=== PATIENT | female | born 1990 | race Caucasian/White ===

== ENCOUNTER 2024-12-03 20:01 | Outpatient (REF) | payer OTHER, SELFPAY ==
[2024-12-08 14:11] LABS: Age Gdln ACOG Testing Note (.); HPV Aptima Negative (Negative); IGP, Aptima HPV, rfx 16/18,45 Note (.)
== END 2024-12-03 20:02 | disposition home or self-care (01) ==
LOC: LAB 20:01
PROVIDERS: PCP Family Medicine; Visit Provider Physician Assistant
DX: Z01.419 Encounter for gynecological examination (general) (routine) without abnormal findings (principal)
CPT/HCPCS: 87624; 88175

== ENCOUNTER 2025-09-07 15:56 | Outpatient (OUT) | payer OTHER, SELFPAY ==
--- NOTE | 2025-09-07 16:00 | MR_ITS ---
[address] [address] Patient Name: AMADO SALMON MRN: [id number] date: 1990 Sex: F Assigned Patient Location: MRI Current Patient Location: MRI Accession/Order Number: [id number] Exam Date: 09/07/2025 16:05 Report Date: 09/07/2025 21:53 At the request of: NON-STAFF PHYSICIAN Procedure: MR lumbar spine wo/w con MR lumbar spine wo/w con 09/07/2025 4:58 PM SIGNS AND SYMPTOMS: ^Chronic Bilateral low back pain with bilateral sciatica PROTOCOL: Multiplanar multisequence MR images of the lumbar spine with and without IV contrast CONTRAST: 15 mL of intravenous Dotarem COMPARISON: 07/16/2022. FINDINGS: The bones of the lumbar spine are in anatomic alignment. There is preservation of vertebral body heights. There is disc desiccation and mild disc height loss at L3-L4. There is a unilateral left-sided L3 pars defect with a defect in the right L3 pedicle. Bilateral L5 pars defects are redemonstrated. The marrow signal is within normal limits. The conus terminates at the inferior endplate of the L1 vertebral body level. No epidural or paraspinous fluid collection is appreciated. No abnormal postcontrast enhancement. At T12-L1: There is a normal disc, central canal, and neural foramen. At L1-L2: There is a normal disc, central canal, and neural foramen. At L2-L3: There is a normal disc, central canal, and neural foramen. At L3-L4: There is a broad-based disc bulge with facet hypertrophy. There is mild right neural foraminal narrowing with minimal spinal canal narrowing. At L4-L5: There is a normal disc, central canal, and neural foramen. At L5-S1: There is a normal disc, central canal, and neural foramen. MR/MR lumbar spine wo/w con IMPRESSION: There is a unilateral left-sided L3 pars defect with a defect in the right L3 pedicle. Bilateral L5 pars defects are redemonstrated. At L3-L4: There is a broad-based disc bulge with facet hypertrophy. There is mild right neural foraminal narrowing with minimal spinal canal narrowing. No abnormal postcontrast enhancement. Impression dictated by: Gavin Aggarwal M.D. 09/07/2025 9:53 PM Dictation Location: [place] [address] Electronically authenticated by: [id number] Y Date: 09/07/2025 21:53
--- OUTSIDE RECORDS SUMMARY | 2025-09-07 16:00 | XMS_ITS | CCD ---
Author Organization [facility] CliniSyal Care Team Providers Care Virginia Line Attendant Name Role Phone DR JANIYA RAYGOZA Primary Care Unavailable RAJENDRA, GARRET Admitting Unavailable RAJENDRA, GARRET Attending Unavailable RAJENDRA, GARRET Consulting Unavailable MARY, DIANA Consulting Unavailable KARASIK, DR TUBBS Attending Unavailable KARASIK, DR TUBBS Admitting Unavailable KARASIK, DR TUBBS Consulting Unavailable IDALMIS, DR WATKINS Primary Care Unavailable ZIEBER, DR AURA Schwartz Consulting Unavailable KARASIK, DR TUBBS Admitting Unavailable IDALMIS, DR WATKINS Primary Care Unavailable KARASIK, DR TUBBS Attending Unavailable KARASIK, DR TUBBS Consulting Unavailable IDALMIS, DR WATKINS Primary Care Unavailable LUCIA, JESSA Admitting Unavailable KONSTAN, DIANA Consulting Unavailable LUCIA, JESSA Attending Unavailable LUCIA, JESSA Consulting Unavailable IDALMIS, DR WATKINS Primary Care Unavailable LUCIA, JESSA Admitting Unavailable LUCIA, JESSA Attending Unavailable LUCIA, JESSA Consulting Unavailable PELIMAN Mcclelland Consulting Unavailable MARKER, DR SCHAEFFER Attending Unavailable GRECHNY, SHANI TAYLOR Consulting Unavailable MARKER, DR SCHAEFFER Admitting Unavailable IDALMIS, DR WATKINS Primary Care Unavailable MARKER, DR SCHAEFFER Consulting Unavailable SCHNEBLEFAROOQ Consulting Unavailable Unavailable Primary Care Provider Unavailabl e PROVIDER, UNKNOWN Attending Unavailable PROVIDER, UNKNOWN Admitting Unavailable Janiya Raygoza MD Primary Care Provider Janiya Raygoza Unavailable Unavailable Unavailable JANIYA RAYGOZA Primary Care Physician MD Janiya Raygoza Primary Care Provider [phone] MD Nhan Carter Admit Provider [phone] MD Nhan Carter Attending Provider Nhan Carter Attending Unavailabl Nhan Quesada Admitting Unavailabl e Idalmis Janiya Primary Care Unavailable Jing Troncoso Attending Unavailable Jing Troncoso Referring Unavailable Idalmis, Dr. Janiya Sue Primary Care Unavaila ble Karyna, Dr. Jing Ge Attending Unavailable Idalmis, Dr. Janiya Sue Primary Care Unavaila ble Ksenia, Dr. Smith Referring Unavailable Karyna, Dr. Jing Ge Attending Unavailable Idalmis, Dr. Janiya Sue Referring Unavaila ble Idalmis, Dr. Janiya Sue Primary Care Unavaila ble Karyna, Dr. Jing Ge Attending Unavailable Idalmis, Dr. Janiya Sue Primary Care Unavaila alec Raygoza MD, Janiya Sunday Primary Care Provider [phone] Bari Alicea Attending Unavailable DO Hernandez Acosta Attending Unavailable Bari Alicea Attending Unavailable Colby Sky Attending Unavailable Idalmis BISWAS, Janiya Sunday Primary Care Provider Idalmis BISWAS, Janiya Brand Unavailable Nallely Monahan Unavailable [phone] JANIYA RAYGOZA Referring Unavailable IDALMIS, JANIYA Brand Primary Care Unavailable IDALMIS, JANIYA Brand Primary Care Unavailable ESTEVANKIET Attending Unavailable IDALMIS, JANIYA Brand Primary Care Unavailable ESTEVAN VESELIN Attending Unavailable IDALMIS, JANIYA Brand Primary Care Unavailable ESTEVAN, VESELIN Attending Unavailable IDALMIS, JANIYA Brand Referring Unavailable IDALMIS, JANIYA Brand Primary Care Unavailable SARAH SCHULTZ Referring Unavailab le IDALMIS, JANIYA Brand Primary Care Unavailable IDALMIS, JANIYA Brand Primary Care Unavailable MARCUS ALVARADO Attending Unavailable Danilo Murcia LPN Unavailable Mamta [place] Unavailable Handy WESTBROOK, Jennifer Unavailable JANIYA RAYGOZA Attending Unavailable ANAYA MORTON Attending Unavailable SARAH SCHULTZ Attending Unavailab LAURYN Villatoro Attending Unavailable JANINA CUNNINGHAM Attending Unavailable Allergies Allergy Classification Reported Allergen(s) Allergy Type Date of Onset Reaction(s) Facility (1 source) Adhesive agent Drug allergy (disorder) [facility] Repository (20 sources) nickel; Translations: [nickel] Drug Allergy 8 [facility] (20 sources) atomoxetine Drug Allergy 7 Anxiety [facility] (20 sources) Wound Dressing Adhesive Drug Allergy 4 [facility] (20 sources) Penicillins Propensity to adverse reactions 4 [facility] (3 sources) Penicillins Propensity to adverse reactions to drug 4 [facility] (1 source) Penicillin; Translations: [PENICILLIN G] Drug Allergy 5 [facility] Three Repository Medications Current Medications Medication Drug Class(es) Dates Sig (Normalized) Sig (Original) amoxicillin 500 mg oral capsule (3 sources) Penicillin-class Antibacterial Start: 11-02-2024 End: 11-09-2024 take 1 capsule by mouth in the morning, then take 1 capsule by mouth in the evening, then take 1 capsule by mouth at bedtime amoxicillin (Amoxil) 500 MG capsule Take 1 capsule by mouth in the morning and 1 capsule in the evening and 1 capsule before bedtime. 11/02/2024 11/07/2024 Discontinued (Ineffective) benzonatate 100 mg oral capsule (2 sources) Non-narcotic Antitussive Start: 11-07-2024 End: 11-14-2024 take 1 capsule by mouth three times daily as needed for cough benzonatate (Tessalon Perles) 100 MG capsule Indications: Bronchitis Take 1 capsule (100 mg) by mouth 3 (three) times a day as needed for cough for up to 7 days Do not crush or chew. 20 capsule 11/07/2024 11/14/2024 Active cephalexin 500 mg oral capsule (2 sources) Cephalosporin Antibacterial Start: 03-10-2024 End: 03-20-2024 take 1 capsule by mouth four times daily cephalexin 500 mg Cap 500 mg = 1 cap(s), Oral, QID, X 10 day(s), # 40 cap(s), Refills(s) 0, Pharmacy: [id number], 162, cm, 03/10/24 13:35:00 EDT, Height/Length Dosing, 70.4, kg, 03/10/24 13:35:00 EDT, Weight Dosing Start Date: 03/10/24 Stop Date: 03/20/24 Status: Ordered Start: 11-05-2023 End: 11-12-2023 take 1 capsule by mouth every twelve hours Keflex 500 mg Cap 500 mg = 1 cap(s), Oral, q12hr, X 7 day(s), # 14 cap(s), Refills(s) 0 Start Date: 11/05/23 Stop Date: 11/12/23 Status: Ordered diclofenac sodium 0.03 mg/mg topical gel (7 sources) Nonsteroidal Anti-inflammatory Drug Start: 10-24-2023 Diclofenac Sodium 3 % GEL Apply 2-4 ribbon of gel to ankle foot as needed for pain, 3-4x/day Pharmacist: may substitute as needed for insurance purposes 100 g 10/24/2023 Active doxycycline monohydrate 100 mg oral capsule (4 sources) Tetracycline-class Drug Start: 04-13-2025 take 1 capsule by mouth twice daily doxycycline monohydrate (MONODOX) 100 MG capsule Take 1 capsule by mouth 2 times daily 14 capsule 04/13/2025 Active Start: 12-29-2022 End: 01-08-2023 take 1 capsule by mouth twice daily doxycycline hyclate (VIBRAMYCIN) 100 MG capsule Take 1 capsule by mouth 2 times daily for 10 days 20 capsule 0 12/29/2022 01/08/2023 Active escitalopram 5 mg oral tablet (1 source) Serotonin Reuptake Inhibitor Start: 01-10-2023 take 5 mg by mouth once daily Escitalopram Oxalate Active 5 MG PO Daily January 10, 2023 12:00am ibuprofen 600 mg oral tablet (7 sources) Nonsteroidal Anti-inflammatory Drug Start: 10-24-2023 take 1 tablet by mouth every six hours as needed for pain ibuprofen (IBU) 600 MG tablet Take 1 tablet by mouth every 6 hours as needed for Pain 30 tablet 10/24/2023 Active ipratropium bromide 0.2 mg/ml inhalation solution (2 sources) Anticholinergic Start: 12-29-2022 End: 08-11-2023 ipratropium (ATROVENT) 0.02 % nebulizer solution Take 2.5 mLs by nebulization 4 times daily as needed for Wheezing 75 mL 0 12/29/2022 08/11/2023 Discontinued (LIST CLEANUP) OLANZapine 5 mg oral tablet (1 source) Atypical Antipsychotic Start: 01-10-2023 take 5 mg by mouth once daily in the evening Olanzapine Active 5 MG PO Every evening January 10, 2023 12:00am omeprazole 20 mg delayed release oral capsule (4 sources) Proton Pump Inhibitor Start: 11-05-2023 take 1 capsule by mouth once daily omeprazole 20 mg Cap-DR 20 mg = 1 cap(s), Oral, Daily, # 30 cap(s), Refills(s) 0 Start Date: 11/05/23 Status: Ordered predniSONE 20 mg oral tablet (16 sources) Start: 08-20-2025 End: 08-30-2025 take 1 tablet by mouth in the morning predniSONE (Deltasone) 20 MG tablet Indications: Chronic bilateral low back pain with bilateral sciatica Take 1 tablet (20 mg) by mouth in the morning and 1 tablet (20 mg) before bedtime. Do all this for 10 days. 20 tablet 08/20/2025 08/30/2025 Active Start: 04-13-2025 predniSONE (DE LTASONE) 20 MG tablet 2 tablets daily x 3 days then 1 tablet daily 10 tablet 04/13/2025 Active Start: 11-07-2024 End: 11-12-2024 take 1 tablet by mouth in the morning predniSONE (Deltasone) 10 MG tablet Indications: Bronchitis , Wheezing Take 1 tablet (10 mg) by mouth in the morning and 1 tablet (10 mg) before bedtime. Do all this for 5 days. 10 tablet 11/07/2024 11/12/2024 Active Start: 02-19-2024 End: 02-26-2024 take 1 tablet by mouth once daily predniSONE 50 mg Tab 50 mg = 1 tab(s), Oral, Daily, X 7 day(s), # 7 tab(s), Refills(s) 0 Start Date: 02/19/24 Stop Date: 02/26/24 Status: Ordered Start: 12-29-2022 End: 01-03-2023 take 1 tablet by mouth twice daily predniSONE (DELTASONE) 10 MG tablet Take 1 tablet by mouth 2 times daily for 5 days 10 tablet 0 12/29/2022 01/03/2023 Active End: 05-14-2025 take 1 tablet by mouth once daily predniSONE (Deltasone) 10 MG tablet Take 10 mg by mouth Daily 05/14/2025 Discontinued propranolol hydrochloride 20 mg oral tablet (7 sources) beta-Adrenergic Sean Start: 05-14-2025 End: 11-10-2025 take 1 tablet by mouth in the morning propranolol (Inderal) 20 MG tablet Indications: Palpitations Take 1 tablet (20 mg) by mouth in the morning and 1 tablet (20 mg) before bedtime. 60 tablet 5 05/14/2025 11/10/2025 Active traZODone hydrochloride 50 mg oral tablet (1 source) Serotonin Reuptake Inhibitor Start: 01-10-2023 take 50 mg by mouth once daily at bedtime Trazodone Active 50 MG PO Daily at bedtime January 10, 2023 12:00am valACYclovir 1000 mg oral tablet (3 sources) Herpesvirus Nucleoside Analog DNA Polymerase Inhibitor, Herpes Simplex Virus Nucleoside Analog DNA Polymerase Inhibitor, Herpes Zoster Virus Nucleoside Analog DNA Polymerase Inhibitor Start: 11-23-2024 End: 12-03-2024 take 1 tablet by mouth in the morning valACYclovir (Valtrex) 1 g tablet Indications: Herpes Take 1 tablet (1,000 mg) by mouth in the morning and 1 tablet (1,000 mg) before bedtime. Do all this for 10 days. 20 tablet 11/23/2024 12/03/2024 Active Completed/Discontinued Medications Medication Drug Class(es) Dates Sig (Normalized) Sig (Original) albuterol 0.83 mg/ml inhalation solution (20 sources) beta2-Adrenergic Agonist Start: 11-07-2024 End: 11-07-2025 albuterol (2.5 MG/3ML) 0.083% nebulizer solution Indications: Bronchitis , Wheezing Take 3 mL (2.5 mg) by nebulization every 6 (six) hours if needed for wheezing 75 mL 11 11/07/2024 08/20/2025 Discontinued Start: 01-07-2024 End: 08-20-2025 take 2 puff(s) by inhalation every four hours for wheezing albuterol HFA (ProAir HFA) 90 mcg/act inhaler Indications: Mild persistent asthma without complication (HCC) Inhale 2 puffs every 4 (four) hours if needed for wheezing 18 g 11 01/07/2024 08/20/2025 Discontinued Start: 08-11-2023 take 2 puff(s) by in halation four times daily as needed for wheezing albuterol sulfate HFA (VENTOLIN HFA) 108 (90 Base) MCG/ACT inhaler Inhale 2 puffs into the lungs 4 times daily as needed for Wheezing 18 g 08/11/2023 Active Start: 08-11-2023 albuterol (PRO VENTIL) (2.5 MG/3ML) 0.083% nebulizer solution 2.5 mg Start: 08-17-2020 End: 01-08-2023 Albuterol Sulfate Discontinu ed 2 INH INHALATION Q6H August 16, 2020 11:00pm January 08, 2023 8:48am End: 12-29-2022 albuterol sulfate HFA (PROVENTIL;VENTOLIN;PROAIR) 108 (90 Base) MCG/ACT inhaler Inhale 2 puffs into the lungs as needed. 0 12/29/2022 Discontinued (LIST CLEANUP) albuterol 0.833 mg/ml / ipratropium bromide 0.167 mg/ml inhalation solution (2 sources) Anticholinergic, beta2-Adrenergic Agonist Start: 08-11-2023 End: 08-11-2023 ipratropium 0.5 mg-albuterol 2.5 mg (DUONEB) nebulizer solution 1 Dose Start: 12-29-2022 End: 12-29-2022 ipratropium-albuterol (DUONE B) nebulizer solution 1 ampule amLODIPine 5 mg oral tablet (1 source) Dihydropyridine Calcium Channel Sean Start: 12-11-2021 End: 01-08-2023 Amlodipine Discontinued MG TABLET December 11, 2021 12:00am January 08, 2023 4:05am amylase [id number] unt / lipase [id number] unt / protease [id number] unt delayed release oral capsule (6 sources) Start: 01-03-2023 take 1 capsule by mouth three times daily Creon [id number] UNIT Oral Capsule Delayed Release Particles TAKE 1 CAPSULE 3 times daily Quantity: 48 Refills: 0 Ordered: 03-Jan-2023 Jing Troncoso DO Start : 03-Jan-2023 Active azithromycin 250 mg oral tablet (15 sources) Macrolide Antimicrobial Start: 11-07-2024 End: 05-14-2025 azithromycin (Zithromax) 250 MG tablet Indications: Bronchitis , Wheezing Take 2 tablets (500mg) by mouth on day 1, then take 1 tablet (250mg) by mouth on days 2-5 6 tablet 11/07/2024 05/14/2025 Discontinued cholestyramine resin 4000 mg powder for oral suspension (1 source) Bile Acid Sequestrant Start: 07-15-2023 Cholestyramine 4 GM Oral Packet MIX THE CONTENTS OF 1 POWDER PACKET WITH 2-6 OZ OF NONCARBONATED BEVERAGE AND SWALLOW TWICE DAILY. Quantity: 60 Refills: 5 Ordered: 15-Jul-2023 Jing Troncoso DO Start : 15-Jul-2023 Active diazePAM 10 mg oral tablet (1 source) Benzodiazepine End: 12-29-2022 take 1 tablet by mouth three times daily diazePAM (VALIUM) 10 MG tablet Take 10 mg by mouth 3 times daily. 0 12/29/2022 Discontinued (LIST CLEANUP) dicyclomine hydrochloride 20 mg oral tablet (1 source) Anticholinergic Start: 07-15-2023 take 1 tablet by mouth every six hours as needed Dicyclomine HCl - 20 MG Oral Tablet TAKE 1 TABLET BY MOUTH EVERY 6 HOURS NEEDED Quantity: 40 Refills: 2 Ordered: 15-Jul-2023 Jing Troncoso DO Start : 15-Jul-2023 Active homatropine methylbromide 0.3 mg/ml / HYDROcodone bitartrate 1 mg/ml oral solution (16 sources) Opioid Agonist, Cholinergic Muscarinic Agonist Start: 11-02-2024 End: 05-14-2025 Hydromet 5-1.5 MG/5ML solution 11/02/2024 05/14/2025 Discontinued Start: 11-02-2024 End: 11-05-2024 HYDROcodone homatropine (HYC ODAN) 5-1.5 MG/5ML solution Indications: Right flank pain , Acute bronchitis, unspecified organism Take 5 mLs by mouth 3 times daily as needed (For cough) for up to 3 days. Max Daily Amount: 15 mLs 45 mL 11/02/2024 11/05/2024 Active iopamidol (ISOVUE-370) 76 % injection 75 mL (1 source) Start: 08-07-2024 End: 08-07-2024 take 1 dose intravenously once 75 mL, IntraVENous, IMG ONCE PRN, 1 dose, Starting on Sat08/07/24 at 1059, Until Sat08/07/24 at 1138, Other methylPREDNISolone 125 mg injection (1 source) Corticosteroid Start: 12-29-2022 End: 12-29-2022 methylPREDNISolone sodium (SOLU-MEDROL) injection 125 mg naproxen 375 mg oral tablet (3 sources) Nonsteroidal Anti-inflammatory Drug Start: 11-02-2024 End: 04-13-2025 take 1 tablet by mouth twice daily at mealtime naproxen (NAPROSYN) 375 MG tablet Take 1 tablet by mouth 2 times daily (with meals) 14 tablet 11/02/2024 04/13/2025 Discontinued (LIST CLEANUP) phenazopyridine hydrochloride 200 mg oral tablet (4 sources) Start: 11-05-2023 take 1 tablet by mouth three times daily Pyridium 200 mg Tab 200 mg = 1 tab(s), Oral, TID, Take one tab by mouth three times a day for three days, # 9 tab(s), Refills(s) 0 Start Date: 11/05/23 Status: Ordered sulfamethoxazole 800 mg / trimethoprim 160 mg oral tablet (1 source) Dihydrofolate Reductase Inhibitor Antibacterial, Sulfonamide Antimicrobial Start: 12-11-2021 End: 01-08-2023 Sulfamethoxazole-Tri methoprim Discontinued TAB TABLET December 11, 2021 12:00am January 08, 2023 4:05am tretinoin 0.25 mg/ml topical cream (7 sources) Retinoid Start: 04-29-2024 End: 12-03-2024 tretinoin (Retin-A) 0.025 % cream Indications: Acne vulgaris Apply to face, once daily at evening/night time, 30 day supply 45 g 11 04/29/2024 12/03/2024 Discontinued Problems Active Problems Problem Classification Problem Date Documented Da te Episodic/Chronic Abdominal pain (15 sources) Right lower quadrant pain; Translations: [Unspecified abdominal pain] Onset: 1 Episodic Alcohol-related disorders (13 sources) Alcohol dependence; Translations: [Alcohol dependence, uncomplicated] Onset: 5 12-11-2021 Chronic Alcohol-related disorders (2 sources) Alcohol intoxication; Translations: [Alcohol use, unspecified with intoxication, unspecified] Onset: 4 12-11-2021 Episodic Anxiety disorders (20 sources) Panic attack; Translations: [Panic disorder [episodic paroxysmal anxiety]] Onset: 2 08-25-2012 Chronic Asthma (20 sources) Unspecified asthma, uncomplicated; Translations: [Exacerbation of moderate persistent asthma] Onset: 2 Chronic Biliary tract disease (1 source) Spasm of sphincter of Oddi; 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 Cardiac dysrhythmias (12 sources) Supraventricular tachycardia; Translations: [Supraventricular tachycardia] Onset: 5 04-15-2025 Chronic Cardiac dysrhythmias (9 sources) Palpitations; Translations: [Palpitations] Onset: 5 04-15-2025 Episodic Chronic obstructive pulmonary disease and bronchiectasis (13 sources) Acute exacerbation of chronic obstructive airways disease; Translations: [Chronic obstructive pulmonary disease with (acute) exacerbation] Onset: 5 04-15-2025 Chronic Chronic obstructive pulmonary disease and bronchiectasis (2 sources) Bronchitis; Translations: [Bronchitis, not specified as acute or chronic] 11-07-2024 Episodic Coagulation and hemorrhagic disorders (12 sources) Thrombocytopenic disorder; Translations: [Thrombocytopenia, unspecified] Onset: 6 04-15-2025 Chronic Diseases of white blood cells (20 sources) Leukocytosis; Translations: [Elevated white blood cell count, unspecified] Onset: 5 04-15-2025 Chronic Disorders of lipid metabolism (14 sources) Pure hypercholesterolemia, unspecified; Translations: [Dyslipidemia] Onset: 2 04-15-2025 Chronic E Codes: Fall (1 source) Fall (on) (from) unspecified stairs and steps, initial encounter; Translations: [FALL ON FROM UNS STAIRS STEPS INIT] Onset: 2 Episodic Genitourinary symptoms and ill-defined conditions (5 sources) Personal history of urinary (tract) infections; Translations: [Hematuria, unspecified] Onset: 1 Episodic Lymphadenitis (5 sources) Localized enlarged lymph nodes; Translations: [Generalized enlarged lymph nodes] Onset: 2 Episodic Menstrual disorders (20 sources) Amenorrhea; Translations: [Amenorrhea, unspecified] Onset: 5 04-15-2025 Chronic Miscellaneous mental health disorders (12 sources) Anorexia nervosa; Translations: [Anorexia nervosa, unspecified] Onset: 5 04-15-2025 Chronic Mood disorders (20 sources) Recurrent major depressive episodes, moderate ; Translations: [Major depressive disorder, recurrent, moderate] Onset: 8 01-08-2023 Chronic Nausea and vomiting (2 sources) Nausea with vomiting, unspecified; Translations: [Nausea and vomiting] Onset: 2 08-17-2020 Episodic Open wounds of extremities (1 source) Puncture wound of upper arm; Translations: [Puncture wound without foreign body of right upper arm, initial encounter] Onset: 4 Episodic Other acquired deformities (20 sources) Scoliosis of lumbar spine; Translations: [Scoliosis, unspecified] Onset: 2 08-25-2012 Chronic Other aftercare (1 source) Removal of sutures done; Translations: [Encounter for removal of sutures] 03-23-2024 Episodic Other circulatory disease (12 sources) Raynaud's disease; Translations: [Raynaud's syndrome without gangrene] Onset: 5 04-15-2025 Chronic Other gastrointestinal disorders (1 source) Non-infective diarrhea; Translations: [Other specified intestinal malabsorption] Chronic Other gastrointestinal disorders (12 sources) Irritable bowel syndrome; Translations: [Irritable bowel syndrome without diarrhea] Onset: 5 04-15-2025 Chronic Other gastrointestinal disorders (1 source) Diarrhea; Translations: [Diarrhea, unspecified] 08-17-2020 Episodic Other lower respiratory disease (2 sources) Wheezing; Translations: [Wheezing] 11-07-2024 Episodic Other nervous system disorders (12 sources) Chronic pain; Translations: [Other chronic pain] Onset: 5 04-15-2025 Chronic Other non-traumatic joint disorders (3 sources) Pain in left ankle and joints of left foot; Translations: [PAIN IN LEFT ANKLE] Onset: 2 Episodic Other nutritional; endocrine; and metabolic disorders (20 sources) Metabolic syndrome X; Translations: [Metabolic syndrome] Onset: 2 08-25-2012 Chronic Other nutritional; endocrine; and metabolic disorders (20 sources) Body mass index 30+ - obesity; Translations: [Obesity, unspecified] Onset: 2 11-07-2012 Chronic Other nutritional; endocrine; and metabolic disorders (12 sources) Hypomagnesemia; Translations: [Hypomagnesemia] Onset: 5 04-15-2025 Chronic Other nutritional; endocrine; and metabolic disorders (1 source) Weight loss; Translations: [Abnormal weight loss] 08-17-2020 Episodic Other screening for suspected conditions (not mental disorders or infectious disease) (1 source) Abnormal findings on diagnostic imaging of other specified body structures; Translations: [Abnormal findings on dx imaging of oth body structures] Onset: 3 Chronic Other upper respiratory infections (1 source) Viral upper respiratory tract infection; Translations: [Acute upper respiratory infection, unspecified] 08-11-2023 Episodic Pancreatic disorders (not diabetes) (20 sources) Chronic pancreatitis; Translations: [Chronic pancreatitis] Onset: 3 Chronic Poisoning by other medications and drugs (1 source) Poisoning by drug AND/OR medicinal substance; Translations: [Poisoning by unspecified drugs, medicaments and biological substances, accidental (unintentional), initial encounter] Onset: 3 Episodic Residual codes; unclassified (2 sources) Acquired absence of both cervix and uterus; Translations: [ACQUIRED ABSENCE BOTH CERVIX AND UTERUS] Onset: 2 Episodic Residual codes; unclassified (2 sources) Acquired absence of other specified parts of digestive tract; Translations: [ACQ ABSENCE OTH PART DIGESTV TRACT] Onset: 2 Episodic Residual codes; unclassified (1 source) Assessment examination refused; Translations: [Procedure and treatment not carried out because of patient's decision for unspecified reasons] 12-12-2021 Episodic Spondylosis; intervertebral disc disorders; other back problems (12 sources) Lumbosacral spondylosis without myelopathy; Translations: [Spondylosis without myelopathy or radiculopathy, lumbosacral region] Onset: 7 04-15-2025 Chronic Spondylosis; intervertebral disc disorders; other back problems (20 sources) Spasm of back muscles; Translations: [Muscle spasm of back] Onset: 7 04-15-2025 Episodic Sprains and strains (1 source) Sprain of unspecified ligament of left ankle, initial encounter; Translations: [SPRAIN UNS LIGAMENT LT ANKLE INIT] Onset: 2 Episodic Substance-related disorders (18 sources) Nicotine dependence, cigarettes, uncomplicated; Translations: [Cannabis abuse] Onset: 2 12-11-2021 Chronic Comment on above: Added secondary to d ocumentation in Social History. Suicide and intentional self-inflicted injury (1 source) Suicidal ideations; Translations: [Suicidal ideations] Onset: 3 Episodic Unclassified (1 source) Readiness finding; Translations: [Desire for detoxification] 12-11-2021 Urinary tract infections (2 sources) Urinary tract infection, site not specified; Translations: [Urinary tract infectious disease] Onset: 1 Episodic Viral infection (2 sources) COVID-19; Translations: [Disease caused by 2019-nCoV] Onset: 2 Past or Other Problems Problem Classification Problem Date Documented Da te Episodic/Chronic Acute bronchitis (4 sources) Acute bronchitis; Translations: [Acute bronchitis, unspecified] Onset: 11-02-2024 11-02-2024 Episodic Blindness and vision defects (12 sources) Bilateral myopia of eyes; Translations: [Myopia, bilateral] Onset: 04-15-2025 04-15-2025 Episodic Diabetes mellitus without complication (14 sources) Hyperglycemia; Translations: [Hyperglycemia, unspecified] Onset: 04-15-2025 04-15-2025 Episodic Fluid and electrolyte disorders (12 sources) Hypokalemia; Translations: [Hypokalemia] Onset: 06-17-2017 04-15-2025 Episodic Gastritis and duodenitis (13 sources) Gastritis; Translations: [Gastritis, unspecified, without bleeding] Onset: 11-05-2023 Episodic Gastrointestinal hemorrhage (20 sources) Rectal hemorrhage; Translations: [Hemorrhage of anus and rectum] Onset: 07-11-2016 07-11-2016 Episodic Other acquired deformities (12 sources) Acquired spondylolisthesis; Translations: [Spondylolisthesis, site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 10*6/uL 4.00 - 5.20 m/uL [facility] Segmented neutrophils/100 WBC (Bld) 7.98 % High [facility] WBC other (Bld) [#/Vol] 11.[address] [facility] CBC with Diffon 11-02-2024 Abs. Basophil 0.02 k/uL Normal 0.00-0.20 [facility] Comment on above: Performed By: #### T ROYER SALINAS, CP, CDP #### [facility] [address] [place] [address] Youth Probation Officer: Sebastian Reyes MD Abs.Imm.Granulocyte 0.01 k/uL Normal 0.00-0.30 [facility] Comment on above: Performed By: #### T BRAD, LIP, CP, CDP #### [facility] [address] [place] [address] Youth Probation Officer: Sebastian Reyes MD Abs.Neutrophil (Seg) 7.98 k/uL High 2.5-7.0 [facility] Comment on above: Performed By: #### T BRAD, LIP, CP, CDP #### [facility] [address] [place] [address] Youth Probation Officer: Sebastian Reyes MD Basophils/100 WBC (Bld) 0 % Normal 0-2 [facility] Comment on above: Performed By: #### T BRAD, LIP, CP, CDP #### [facility] [address] [place] [address] Youth Probation Officer: Sebastian Reyes MD Eosinophils (Bld) [#/Vol] 0.08 10*3/uL Normal 0.00-0.40 [facility] Comment on above: Performed By: #### T BRAD, LIP, CP, CDP #### [facility] [address] [place] [address] Youth Probation Officer: Sebastian Reyes MD Eosinophils/100 WBC (Bld) 1 % Normal 0-5 [facility] Comment on above: Performed By: #### T BRAD, LIP, CP, CDP #### [facility] [address] [place] [address] Youth Probation Officer: Sebastian Reyes MD Erythrocyte distribution width (RBC) [Ratio] 12.2 % Normal 12.1-15.2 [facility] Comment on above: Performed By: #### T BRAD, LIP, CP, CDP #### [facility] [address] [place] [address] Youth Probation Officer: Sebastian Reyes MD Hematocrit (Bld) [Volume fraction] 41.7 % Normal 36.0-46.0 [facility] Comment on above: Performed By: #### T ROYER SALINAS, CP, CDP #### [facility] [address] [place] [id number] Youth Probation Officer: Sebastian Reyes MD Hemoglobin (Bld) [Mass/Vol] 14.7 g/dL Normal 12.0-16.0 [facility] Comment on above: Performed By: #### T BRAD, LIP, CP, CDP #### [facility] [address] [place] [address] Youth Probation Officer: Sebastian Reyes MD Immature granulocytes/100 WBC (Bld) 0 % Normal 0-5 [facility] Comment on above: Performed By: #### T ROYER SALINAS, CP, CDP #### [facility] [address] [place] [address] Youth Probation Officer: Sebastian Reyes MD Lymphocytes (Bld) [#/Vol] 3.05 10*3/uL Normal 1.00-4.80 [facility] Comment on above: Performed By: #### T ROYER SALINAS, CP, CDP #### [facility] [address] [place] [address] Youth Probation Officer: Sebastian Reyes MD Lymphocytes/100 WBC (Bld) 26 % Normal 15-40 [facility] Comment on above: Performed By: #### T ROYER SALINAS, CP, CDP #### [facility] [address] [place] [address] Youth Probation Officer: Sebastian Reyes MD MCH (RBC) [Entitic mass] 33.5 pg Normal 26.0-34.0 [facility] Comment on above: Performed By: #### T ROYER SALINAS, CP, CDP #### [facility] [address] [place] [id number] Youth Probation Officer: Sebastian Reyes MD MCHC (RBC) [Mass/Vol] 35.3 g/dL Normal 31.0-37.0 [facility] Comment on above: Performed By: #### T BRAD, LIP, CP, CDP #### [facility] [address] [place] [address] Youth Probation Officer: Sebastian Reyes MD MCV (RBC) [Entitic vol] 95.0 fL Normal 80.0-100.0 [facility] Comment on above: Performed By: #### T BRAD, LIP, CP, CDP #### [facility] [address] [place] [address] Youth Probation Officer: Sebastian Reyes MD Monocytes (Bld) [#/Vol] 0.60 10*3/uL Normal 0.00-1.00 [facility] Comment on above: Performed By: #### T BRAD, LIP, CP, CDP #### [facility] [address] [place] [address] Youth Probation Officer: Sebastian Reyes MD Monocytes/100 WBC (Bld) 5 % Normal 4-8 [facility] Comment on above: Performed By: #### T BRAD, LIP, CP, CDP #### [facility] [address] [place] [address] Youth Probation Officer: Sebastian Reyes MD Neutrophil (Seg) 68 % Normal 47-75 [facility] Comment on above: Performed By: #### T BRAD, LIP, CP, CDP #### [facility] [address] [place] [address] Youth Probation Officer: Sebastian Reyes MD Platelet mean volume (Bld) [Entitic vol] 9.6 fL Normal 6.0-12.0 [facility] Comment on above: Performed By: #### T BRAD, ROYER, CP, CDP #### [facility] [address] [place] [address] Youth Probation Officer: Sebastian Reyes MD Platelets (Bld) [#/Vol] 323 10*3/uL Normal 140-450 [facility] Comment on above: Performed By: #### T ROPI, LIP, CP, CDP #### [facility] [address] [place], [place] [id number] Youth Probation Officer: Sebastian Reyes MD RBC (Bld) [#/Vol] 4.39 10*6/uL Normal 4.00-5.20 [facility] Comment on above: Performed By: #### T ROPI, LIP, CP, CDP #### [facility] [address] [place] [address] Youth Probation Officer: Sebastian Reyes MD WBC (Bld) [#/Vol] 11.7 10*3/uL High 3.5-11.0 [facility] Comment on above: Performed By: #### T ROPI, LIP, CP, CDP #### [facility] [address] [place] [address] Youth Probation Officer: Sebastian Reyes MD Comp Metabolic Profon 2023 Albumin [Mass/Vol] 4.1 g/dL Normal 3.5-5.2 [facility] Comment on above: Performed By: #### T ROPRaghu, LIP, CP, CDP #### [facility] [address] [place], [place] [id number] Youth Probation Officer: Sebastian Reyes MD Alkaline Phos 73 U/L Normal 35-104 [facility] Comment on above: Performed By: #### T ROPI, LIP, CP, CDP #### [facility] [address] [place] [address] Youth Probation Officer: Sebastian Reyes MD ALT [Catalytic activity/Vol] 14 U/L Normal 5-33 [facility] Comment on above: Performed By: #### T ROPI, LIP, CP, CDP #### [facility] [address] [place], [place] [id number] Youth Probation Officer: Sebastian Reyes MD Anion gap [Moles/Vol] 17 mmol/L Normal 9-17 [facility] Comment on above: Performed By: #### T BRAD, LIP, CP, CDP #### [facility] [address] [place] [address] Youth Probation Officer: Sebastian Reyes MD AST [Catalytic activity/Vol] 14 U/L Normal <32 [facility] Comment on above: Performed By: #### T BRAD, LIP, CP, CDP #### [facility] [address] [place], [place] [id number] Youth Probation Officer: Sebastian Reyes MD Bilirubin [Mass/Vol] 0.3 mg/dL Normal 0.3-1.2 [facility] Comment on above: Performed By: #### T BRAD, LIP, CP, CDP #### [facility] [address] [place] [address] Youth Probation Officer: Sebastian Reyes MD BUN/CRE Ratio 7 Low 9-20 [facility] Comment on above: Performed By: #### T BRAD, LIP, CP, CDP #### [facility] [address] [place] [address] Youth Probation Officer: Sebsatian Reyes MD Calcium [Mass/Vol] 9.5 mg/dL Normal 8.6-10.4 [facility] Comment on above: Performed By: #### T BRAD, LIP, CP, CDP #### [facility] [address] [place] [address] Youth Probation Officer: Sebastian Reyes MD Chloride [Moles/Vol] 102 mmol/L Normal 98-107 [facility] Comment on above: Performed By: #### T BRAD, LIP, CP, CDP #### [facility] [address] [place] [address] Youth Probation Officer: Sebastian Reyes MD CO2 [Moles/Vol] 20 mmol/L Normal 20-31 [facility] Comment on above: Performed By: #### T ROYER SALINAS CP, CDP #### [facility] [address] [place] [address] Youth Probation Officer: Sebastian Reyes MD Creatinine [Mass/Vol] 0.6 mg/dL Normal 0.5-0.9 [facility] Comment on above: Performed By: #### T ROYER SALINAS, CP, CDP #### [facility] [address] [place], [place] [id number] Youth Probation Officer: Sebastian Reyes MD GFR/1.73 sq M.predicted among non-blacks MDRD (S/P/Bld) [Vol rate/Area] mL/min/{1.73_m2} Normal >60 [facility] Comment on above: Result Comment: These results are not intended for use in patients <18 years of age. eGFR results are calculated without a race factor using the 2020 CKD-EPI equation. Careful clinical correlation is recommended, particularly when comparing to results calculated using previous equations. The CKD-EPI equation is less accurate in patients with extremes of muscle mass, extra-renal metabolism of creatine, excessive creatine ingestion, or following therapy that affects renal tubular secretion. Performed By: #### T ROYER SALINAS CP, CDP #### [facility] [address] [place] [address] Youth Probation Officer: Sebastian Reyes MD Glucose [Mass/Vol] 104 mg/dL High 70-99 [facility] Comment on above: Performed By: #### T ROYER SALINAS, CP, CDP #### [facility] [address] [place] [address] Youth Probation Officer: Sebastian Reyes MD Potassium [Moles/Vol] 3.7 mmol/L Normal 3.7-5.3 [facility] Comment on above: Performed By: #### T ROYER SALINAS, CP, CDP #### [facility] [address] [place] [address] Youth Probation Officer: Sebastian Reyes MD Protein [Mass/Vol] 6.8 g/dL Normal 6.4-8.3 [facility] Comment on above: Performed By: #### T ROYER SALINAS CP, CDP #### [facility] [address] [place] [address] Youth Probation Officer: Sebastian Reyes MD Sodium [Moles/Vol] 139 mmol/L Normal 135-144 [facility] Comment on above: Performed By: #### T ROYER SALINAS CP, CDP #### [facility] [address] [place] [address] Youth Probation Officer: Sebastian Reyes MD Urea nitrogen [Mass/Vol] 4 mg/dL Low 6-20 [facility] Comment on above: Performed By: #### T ROYER SALINAS CP, CDP #### [facility] [address] [place] [address] Youth Probation Officer: Sebastian Reyes MD Comprehensive Metabolic Pane [facility] 11-02-2024 Albumin [Mass/Vol] 4.1 g/dL 3.5 - 5.2 g/dL [facility] ALP [Catalytic activity/Vol] 73 U/L 35 - 104 U/L [facility] ALT [Catalytic activity/Vol] 14 U/L 5 - 33 U/L [facility] Anion gap [Moles/Vol] 17 mmol/L 9 - 17 mmol/L [facility] AST [Catalytic activity/Vol] 14 U/L NINF - 32 U/L [facility] Bilirubin [Mass/Vol] 0.3 mg/dL 0.3 - 1 .2 mg/dL [facility] Calcium [Mass/Vol] 9.5 mg/dL 8.6 - 10. 4 mg/dL [facility] Chloride [Moles/Vol] 102 mmol/L 98 - 10 7 mmol/L [facility] CO2 [Moles/Vol] 20 mmol/L 20 - 31 mmol/L [facility] Creatinine [Mass/Vol] 0.6 mg/dL 0.5 - 0.9 mg/dL [facility] Britton Talavera - BENITA [facility] Anabella ecocalvin [facility] Comment on above: These results are not intended for use in patients <18 years of age. eGFR results are calculated without a race factor using the 2020 CKD-EPI equation. Careful clinical correlation is recommended, particularly when comparing to results calculated using previous equations. The CKD-EPI equation is less accurate in patients with extremes of muscle mass, extra-renal metabolism of creatine, excessive creatine ingestion, or following therapy that affects renal tubular secretion. Glucose [Mass/Vol] 104 mg/dL High 70 - 99 mg/dL [facility] Interpretation and review of laboratory results Abnormal [facility] Potassium [Moles/Vol] 3.7 mmol/L 3.7 - 5.3 mmol/L [facility] Protein [Mass/Vol] 6.8 g/dL 6.4 - 8.3 g/dL [facility] Sodium [Moles/Vol] 139 mmol/L 135 - 144 mmol/L [facility] Urea nitrogen [Mass/Vol] 4 mg/dL Low 6 - 20 mg/dL [facility] Urea nitrogen/Creatinine [Mass ratio] 7 mg/mg Low 9 - 20 [facility] Lipaseon 11-02-2024 Lipase [Catalytic activity/Vol] 29 U/L 13 - 60 U/L [facility] Lipase [Catalytic activity/Vol] 29 U/L Normal 13-60 [facility] Comment on above: Performed By: #### T ROYER SALINAS CP, CDP #### [facility] [address] [place] [address] Youth Probation Officer: Sebastian Reyes MD No Panel Informationon 11-02 [facility] Troponinon 11-02-2024 Troponin I.cardiac High sensitivity method [Mass/Vol] ng/L 0 - 14 ng/L [facility] Comment on above: High Sensitivity Tro ponin values cannot be compared with other Troponin methodologies. [facility] Troponin, High Sens <6 Normal 0-14 [facility] Comment on above: Result Comment: High Sensitivity Troponin values cannot be compared with other Troponin methodologies. Performed By: #### T ROPI, LIP, CP, CDP #### [facility] [address] [place] [address] Youth Probation Officer: Sebastian Reyes MD Urinalysison 11-02-2024 Bilirubin Ql (U) Negative NEGATIVE [facility] Clarity (U) Clear Clear [facility] Color (U) Yellow Yellow [facility] Comment [facility] Glucose Test strip (U) [Mass/Vol] Negative NEGATIVE mg/dL [facility] Hemoglobin Auto test strip Ql (U) Negative NEGATIVE [facility] Ketones (U) [Mass/Vol] Negative NEGAT VASILE mg/dL [facility] Leukocyte esterase Test strip Ql (U) Negative NEGATIVE [facility] Nitrite Ql (U) Negative NEGATIVE [facility] pH (U) 6.5 [pH] 5.0 - 8.0 [facility] Protein (U) [Mass/Vol] Negative NEGAT VASILE mg/dL [facility] Specific gravity (U) [Rel density] 1.005 1.005 - 1.030 [facility] Urobilinogen Qn (U) Normal 0.0 - 1. 0 EU/dL [facility] Urinalysis, Routineon 2023 Bilirubin, SemiQt,Ur Negative Normal NEG [facility] Comment on above: Performed By: #### U A ####[facility] [id number] [place] [address] Lab Director: Sebastian Reyes MD Blood, Urine Negative Normal NEG [facility] Comment on above: Performed By: #### U A ####[facility] [id number] [place] [address] Lab Director: Sebastian eRyes MD Clarity (U) Clear Normal CLEAR [facility] Comment on above: Performed By: #### U A ####[facility] [id number] [place] [address] Lab Director: Sebastian Reyes MD Color (U) Yellow Normal YEL [facility] Comment on above: Performed By: #### U A ####[facility] [id number] [place] [address] lab Director: Sebastian Reyes MD Comment Normal [facility] Comment on above: Performed By: #### U A ####[facility] [id number] [place] [address] lab Director: Sebastian Reyes MD Glucose Ql (U) Negative Normal NEG [facility] Comment on above: Performed By: #### U A ####[facility] [id number] [facility] [place] [place] [address] lab Director: Sebastian Reyes MD Ketones Ql (U) Negative Normal NEG [facility] Comment on above: Performed By: #### U A ####[facility] [id number] [facility] [place] [address] lab Director: Sebastian Reyes MD Leukocyte esterase Test strip Ql (U) Negative Normal NEG [facility] Comment on above: Performed By: #### U A ####[facility] [id number] [place] [address] lab Director: Sebastian Reyes MD Nitrite,Ur Negative Normal NEG [facility] Comment on above: Performed By: #### U A ####[facility] [id number] [place] [address] lab Director: Sebastian Reyes MD PH,Ur 6.5 Normal 5.0-8.0 [facility] Comment on above: Performed By: #### U A ####[facility] [id number] [place] [address] lab Director: Sebastian Reyes MD Protein Ql (U) Negative Normal NEG [facility] Comment on above: Performed By: #### U A ####[facility] [id number] [place] [address] lab Director: Sebastian Reyes MD Spec. [place],Ur 1.005 Normal 1.005-1.03 0 [facility] Comment on above: Performed By: #### U A ####[facility] [id number] [facility] [place] [address] lab Director: Sebastian Reyes MD Urobilinogen,Ur Normal Normal 0.0-1.0 [facility] Comment on above: Performed By: #### U A ####[facility] [id number] [place] [address] lab Director: Sebastian Reyes MD XR CHEST (2 VW)on 11-02-2024 XR CHEST (2 VW) EXAM: Chest x-ray HISTORY: . wheezing . COMPARISON: 08/07/2024 TECHNIQUE: Frontal and lateral chest FINDINGS: Heart and vascularity are unremarkable. Lungs are free of focal infiltrates. No bony abnormality was appreciated. IMPRESSION: No acute heart or lung disease identified. Interpreted by: Sebastian Robb MD Signed by: Sebastian Robb MD 11/02/24 Final result Normal [facility] XR Chest 2 Viewson No acute heart or lung disease identified. [facility] RIS CONSOLIDATED EXAM: Chest x-ray HISTORY: . wheezing . COMPARISON: 08/07/2024 TECHNIQUE: Frontal and lateral chest FINDINGS: Heart and vascularity are unremarkable. Lungs are free of focal infiltrates. No bony abnormality was appreciated. [facility] RIS CONSOLIDATED Sebastian Robb MD - 11/02/2024 EXAM: Chest x-ray HISTORY: . wheezing . COMPARISON: 08/07/2024 TECHNIQUE: Frontal and lateral chest FINDINGS: Heart and vascularity are unremarkable. Lungs are free of focal infiltrates. No bony abnormality was appreciated. IMPRESSION: No acute heart or lung disease identified. [facility] Radiology Study observation (narrative) [facility] XR Chest 2 ViewsOrdered By: Sebastian Robb on 11-02-2024 [facility] Work Phone: Cult,Urineon 08-08-2024 Cult,Urine Specimen Description .URINE, MIDSTREAM Culture NO SIGNIFICANT GROWTH Report Status FINAL 08/08/2024 Normal [facility] Comment on above: Performed By: #### U RC ####[facility] [address] [place] [address] lab Director: Billy Chavez, [facility] [id number] [place] [address] Lab Director: Sebastian Reyes MD [facility] CULT,URINEon 08-08-2024 [facility] CULT,URINE Specimen Description .URINE, MIDSTREAM [facility] MHPT CULT,URINE Culture NO SIGNIFICA NT GROWTH [facility] Report Status FINAL 08/08/2024 [facility] Original [facility]ing Provider[facility] CBC with Auto Differentialon 08-07-2024 Basophils (Bld) [#/Vol] 0.04 10*3/uL [facility] Immature granulocytes (Bld) [#/Vol] 0.03 10*3/uL [facility] Interpretation and review of laboratory results Abnormal [facility] Lymphocytes/100 WBC (Bld) 2.82 % [facility] Monocytes/100 WBC (Bld) 0.75 % [facility] Neutrophils/100 WBC (Bld) 70 % 47 - 75 % [facility] Segmented neutrophils/100 WBC (Bld) 8.15 % High [facility] WBC other (Bld) [#/Vol] 11.8 High [facility] CBC with Diffon 08-07-2024 Basophils/100 WBC (Bld) 0 % Normal 0-2 [facility] Comment on above: Performed By: #### L ANN VICTOR, CP #### [facility] [address] [place] [address] Youth Probation Officer: Sebastian Reyes MD Eosinophils (Bld) [#/Vol] 0.05 10*3/uL Normal 0.00-0.40 [facility] Comment on above: Performed By: #### L ANN VICTOR, CP #### [facility] [address] [place] [address] Youth Probation Officer: Sebastian Reyes MD Eosinophils/100 WBC (Bld) 0 % Normal 0-5 [facility] Comment on above: Performed By: #### L ANN VICTOR, CP #### [facility] [address] [place] [id number] Youth Probation Officer: Sebastian Reyes MD Erythrocyte distribution width (RBC) [Ratio] 11.8 % Low 12.1-15.2 [facility] Comment on above: Performed By: #### L ANN VICTOR, CP #### [facility] [address] [place] [address] Youth Probation Officer: Sebastian Reyes MD Hematocrit (Bld) [Volume fraction] 43.8 % Normal 36.0-46.0 [facility] Comment on above: Performed By: #### L ANN VICTOR, CP #### [facility] [address] [place] [id number] Youth Probation Officer: Sebastian Reyes MD Hemoglobin (Bld) [Mass/Vol] 15.1 g/dL Normal 12.0-16.0 [facility] Comment on above: Performed By: #### L ANN VICTOR, CP #### [facility] [address] [place] [id number] Youth Probation Officer: Sebastian Reyes MD Immature granulocytes/100 WBC (Bld) 0 % Normal 0-5 [facility] Comment on above: Performed By: #### L ANN VICTOR, CP #### [facility] [address] [place] [id number] Youth Probation Officer: Sebastian Reyes MD Lymphocytes/100 WBC (Bld) 24 % Normal 15-40 [facility] Comment on above: Performed By: #### L ANN VICTOR, CP #### [facility] [address] [place] [address] Youth Probation Officer: Sebastian Reyes MD MCH (RBC) [Entitic mass] 33.2 pg Normal 26.0-34.0 [facility] Comment on above: Performed By: #### L ANN VICTOR, CP #### [facility] [address] [place] [id number] Youth Probation Officer: Sebastian Reyes MD MCHC (RBC) [Mass/Vol] 34.5 g/dL Normal 31.0-37.0 [facility] Comment on above: Performed By: #### L ANN VICTOR, CP #### [facility] [address] [place] [id number] Youth Probation Officer: Sebastian Reyes MD MCV (RBC) [Entitic vol] 96.3 fL Normal 80.0-100.0 [facility] Comment on above: Performed By: #### L ANN VICTOR, CP #### [facility] [address] [place] [address] Youth Probation Officer: Sebastian Reyes MD Monocytes/100 WBC (Bld) 6 % Normal 4-8 [facility] Comment on above: Performed By: #### L ANN VICTOR, CP #### [facility] [address] [place] [address] Youth Probation Officer: Sebastian Reyes MD Platelet mean volume (Bld) [Entitic vol] 9.9 fL Normal 6.0-12.0 [facility] Comment on above: Performed By: #### L ANN VICTOR, CP #### [facility] [address] [place] [address] Youth Probation Officer: Sebastian Reyes MD Platelets (Bld) [#/Vol] 314 10*3/uL Normal 140-450 [facility] Comment on above: Performed By: #### L ANN VICTOR, CP #### [facility] [address] [place] [id number] Youth Probation Officer: Sebastian Reyes MD RBC (Bld) [#/Vol] 4.55 10*6/uL Normal 4.00-5.20 [facility] Comment on above: Performed By: #### L ANN VICTOR, CP #### [facility] [address] [place] [address] Youth Probation Officer: Sebastian Reyes MD Abs. Basophil 0.04 k/uL Normal 0.00-0.20 [facility] Comment on above: Performed By: #### L ANN VICTOR, CP #### [facility] [address] [place] [address] Youth Probation Officer: Sebastian Reyes MD Abs.Imm.Granulocyte 0.03 k/uL Normal 0.00-0.30 [facility] Comment on above: Performed By: #### L ANN VICTOR, CP #### [facility] [address] [place] [id number] Youth Probation Officer: Sebastian Reyes MD Abs.Neutrophil (Seg) 8.15 k/uL High 2.5-7.0 [facility] Comment on above: Performed By: #### L ANN VICTOR, CP #### [facility] [address] [place] [phone] Youth Probation Officer: Sebastian Reyes MD Lymphocytes (Bld) [#/Vol] 2.82 10*3/uL Normal 1.00-4.80 [facility] Comment on above: Performed By: #### L ANN VICTOR, CP #### [facility] [address] [place] [id number] Youth Probation Officer: Sebastian Reyes MD Monocytes (Bld) [#/Vol] 0.75 10*3/uL Normal 0.00-1.00 [facility] Comment on above: Performed By: #### L ANN VICTOR, CP #### [facility] [address] [place], [place] [id number] Youth Probation Officer: Sebastian Reyes MD Neutrophil (Seg) 70 % Normal 47-75 [facility] Comment on above: Performed By: #### L ANN VICTOR, CP #### [facility] [address] [place], [place] [phone] Youth Probation Officer: Sebastian Reyes MD WBC (Bld) [#/Vol] 11.8 10*3/uL High 3.5-11.0 [facility] Comment on above: Performed By: #### L ANN VICTOR, CP #### [facility] [address] [place], [place] [id number] Youth Probation Officer: Sebastian Reyes MD CT ABDOMEN PELVIS W IV CONTR Lasha 08-07-2024 CT ABDOMEN PELVIS W IV CONTRAST EXAM: CT ABDOMEN PELVIS W IV CONTRAST HISTORY: R flank pain COMPARISON: None. TECHNIQUE: CT examination of the abdomen and pelvis with IV contrast. Coronal and sagittal reformations were performed. Dose reduction techniques were achieved by using automated exposure control and/or adjustment of mA and/or kV according to patient size and/or use of iterative reconstruction technique. FINDINGS: POSITIVES related to history: None NEGATIVES related to history: No evidence of contusion or unexpected mass or acute surgical change. COINCIDENTAL, unrelated to history: Cholecystectomy. Hysterectomy. 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 ROUTINE: Normal bladder contour, retroperitoneum, bowel, kidneys, abdominal wall, adrenal glands, pancreas, spleen, liver and lung bases. IMPRESSION: Negative. Interpreted by: Gray Oro Jr., MD Signed by: Gray Oro Jr., MD 08/07/24 Final result Normal [facility] CT Abdomen and Pelvis W cont rast Juan R 08-07-2024 Negative. [facility] RIS CONSOLIDATED EXAM: CT ABDOMEN PEL VIS W IV CONTRAST HISTORY: R flank pain COMPARISON: None. TECHNIQUE: CT examination of the abdomen and pelvis with IV contrast. Coronal and sagittal reformations were performed. Dose reduction techniques were achieved by using automated exposure control and/or adjustment of mA and/or kV according to patient size and/or use of iterative reconstruction technique. FINDINGS: POSITIVES related to history: None NEGATIVES related to history: No evidence of contusion or unexpected mass or acute surgical change. COINCIDENTAL, unrelated to history: Cholecystectomy. Hysterectomy. 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 ROUTINE: Normal bladder contour, retroperitoneum, bowel, kidneys, abdominal wall, adrenal glands, pancreas, spleen, liver and lung bases. [facility] Gray Oro Jr., MD - 08/07/2024 EXAM: CT ABDOMEN PELVIS W IV CONTRAST HISTORY: R flank pain COMPARISON: None. TECHNIQUE: CT examination of the abdomen and pelvis with IV contrast. Coronal and sagittal reformations were performed. Dose reduction techniques were achieved by using automated exposure control and/or adjustment of mA and/or kV according to patient size and/or use of iterative reconstruction technique. FINDINGS: POSITIVES related to history: None NEGATIVES related to history: No evidence of contusion or unexpected mass or acute surgical change. COINCIDENTAL, unrelated to history: Cholecystectomy. Hysterectomy. 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 ROUTINE: Normal bladder contour, retroperitoneum, bowel, kidneys, abdominal wall, adrenal glands, pancreas, spleen, liver and lung bases. IMPRESSION: Negative. [facility] Radiology Study observation (narrative) [facility] Comp Metabolic Profon 2023 Albumin [Mass/Vol] 4.4 g/dL Normal 3.5-5.2 [facility] Comment on above: Performed By: #### L ANN VICTOR, CP ####[facility] [id number] [place] [address] Lab Director: Sebastian Reyes MD Alkaline Phos 74 U/L Normal 35-104 [facility] Comment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 emergency department for further evaluation. Patient Education Asthma, Adult, Yjqp-sm-Ercf Asthma Attack Prevention, Adult Attestation Patient seen and evaluated by the physician offset press assistant. Attending physician was present in the emergency department and supervised care. This visit was performed by both the physician and an APC. I performed all aspects of the MDM as documented. This report was transcribed using voice recognition software. Every effort was made to ensure accuracy, however, inadvertently computerized care rep mistakes may be present. Appropriate healthcare PPE was used in evaluating this patient. The patient was placed in a mask. The healthcare provider was wearing mask, gloves, and utilizing proper hand hygiene. All equipment was properly cleansed. I performed a substantive part of the MDM during the patient?s E/M visit. I personally made or approved the documented management plan and acknowledge its risk of complications. (Independent Interpretation) My (EKG/X-Ray/US/CT as applicable) interpretation as abo (more content not included)... [facility] Comment on above: Result Comment: Elec tronically Signed By: Pedro Norton PA-C\.br\Date and Time Signed: 02/19/24 11:39 EDT\.br\Electronically Co-Signed By: Colby Sky DO\.br\Date and Time Co-Signed: 02/19/24 12:48 EDT ED Patient Education Noteon 02-19-2024 ED Patient Education Note Pulmonary Medicine Asthma, Adult Asthma is a condition that causes swelling and narrowing of the airways. These are the passages that lead from the nose and mouth down into the lungs. When asthma symptoms get worse it is called an asthma attack or flare. This can make it hard to breathe. Asthma flares can range from minor to life-threatening. There is no cure for asthma, but medicines and lifestyle changes can help to control it. What are the causes? It is not known exactly what causes asthma, but certain things can cause asthma symptoms to get worse (triggers). What can trigger an asthma attack? ? Cigarette smoke. ? Mold. ? Dust. ? Your pet's skin flakes (dander). ? Cockroaches. ? Pollen. ? Air pollution (like household fisher lampara net, wood smoke, smog, or chemical odors). What are the signs or symptoms? ? Trouble breathing (shortness of breath). ? Coughing. ? Making high-pitched whistling sounds when you breathe, most often when you breathe out (wheezing). ? Chest tightness. ? Tiredness with little activity. ? Poor exercise tolerance. How is this treated? ? Controller medicines that help prevent asthma symptoms. ? Fast-acting reliever or rescue medicines. These give short-term relief of asthma symptoms. ? Allergy medicines if your attacks are brought on by allergens. ? Medicines to help control the body's defense (immune) system. ? Staying away from the things that cause asthma attacks. Follow these instructions at home: Avoiding triggers in your home ? Do not allow anyone to smoke in your home. ? Limit use of fireplaces and wood stoves. ? Get rid of pests (such as roaches and mice) and their droppings. ? Keep your home clean. ? Clean your floors. Dust regularly. Use cleaning products that do not smell. ? Wash bed sheets and blankets every week in hot water. Dry them in a dryer. ? Have someone vacuum when you are not home. ? Change your heating and air conditioning filters often. ? Use blankets that are made of polyester or cotton. General instructions ? Take cpnm-zdu-orcefyb and prescription medicines only as told by your doctor. ? Do not smoke or use any products that contain nicotine or tobacco. If you need help quitting, ask your doctor. ? Stay away from secondhand smoke. ? Avoid doing things outdoors when allergen counts are high and when air quality is low. ? Warm up before you exercise. Take time to cool down after exercise. ? Use a peak flow meter as told by your doctor. A peak flow meter is a tool that measures how well your lungs are working. ? Keep track of the peak flow meter's readings. Write them down. ? Follow your asthma action plan. This is a written plan for taking care of your asthma and treating your attacks. ? Make sure you get all the shots (vaccines) that your doctor recommends. Ask your doctor about a flu shot and a pneumonia shot. ? Keep all follow-up visits. Contact a doctor if: ? You have wheezing, shortness of breath, or a cough even while taking medicine to prevent attacks. ? The mucus you cough up (sputum) is thicker than usual. ? The mucus you cough up changes from clear or white to yellow, green, miguel, or is bloody. ? You have problems from the medicine you are taking, such as: ? A rash. ? Itching. ? Swelling. ? Trouble breathing. ? You need reliever medicines more than 2?3 times a week. ? Your peak flow reading is still at 50?79% of your personal best after following the action plan for 1 hour. ? You have a fever. Get help right away if: ? You seem to be worse and are not responding to medicine during an asthma attack. ? You are short of breath even at rest. ? You get short of breath when doing very little activity. ? You have trouble eating, drinking, or talking. ? You have chest pain or tightness. ? You have a fast heartbeat. ? Your lips or fingernails start to turn blue. ? You are light-headed or dizzy, or you faint. ? Your peak flow is less than 50% of your personal best. ? You feel too tired to breathe normally. These symptoms may be an emergency. Get help right away. Call 911. ? Do not wait to see if the symptoms will go away. ? Do not drive yourself to the hospital. Summary ? Asthma is a long-term (chronic) condition in which the airways get tight and narrow. An asthma attack can make it hard to breathe. ? Asthma cannot be cured, but medicines and lifestyle changes can help control it. ? Make sure you understand how to avoid triggers and how and when to use your medicines. ? Avoid things that can cause allergy symptoms (allergens). These include animal skin flakes (dander) and pollen from trees or grass. ? Avoid things that pollute the air. These may include household fisher lampara net, wood smoke, smog, or chemical odors. This information is not intended to replace advice given to you by your health care provider. Make sure you discuss any questions you have with your health care provi (more content not included)... [facility] ED Patient Summaryon 024 ED Patient Summary (Inserted Image. Chiqui ble to display) [place] [id number] Patient Discharge Instructions Person Information Name: SHIRIN BURGOS Age: 33 Years Arrival Date: 02/19/2024 10:06:26 Discharge Diagnosis: Asthma exacerbation Primary Care Physician: IDALMIS BISWAS, JANIYA Brand Provider Information Primary Provider: Colby Sky DO Advanced Special Librarian:None The exam and treatment you received in the Emergency Department were for an urgent problem and are not intended as complete care. It is important that you follow up with a doctor, nurse practitioner, or physician?s offset press assistant for ongoing care. If your symptoms become worse or you do not improve as expected and you are unable to reach your usual health care provider, you should return to the Emergency Department. We are available 24 hours a day. SHIRIN BURGOS has been given the following list of patient education materials, prescriptions and follow-up instructions: Follow-up Instructions: With: Address: When: JANIYA RAYGOZA [address] [place] [id number] [facility] (1) In 3 days 02/22/2024 Comments: Follow-up with your primary care provider in 3 to 5 days. If symptoms worsen, do not improve, or new symptoms arise please report back to emergency department for further evaluation. In the event that this physician does not participate in your insurance network, please consult with your insurance company to find a nearby participating provider. Patient Education Materials: Asthma, Adult, Pssi-va-Mcht; Asthma Attack Prevention, Adult A MESSAGE TO ALL PATIENTS REGARDING OPIOIDS PRESCRIPTION OPIOIDS: WHAT YOU NEED TO KNOW Prescription opioids can be used to help relieve umtxghpa-dm-nyympf pain and are often prescribed following a surgery or injury, or for certain health conditions. These medications can be an important part of the treatment but also come with serious risks. It is important to work with your healthcare provider to make sure you are getting the safest, most effective care. WHAT ARE THE RISKS AND SIDE EFFECTS OF OPIOID USE? Prescription opioids carry serious risks of addiction and overdose, especially with prolonged use. An opioid overdose, often marked by slowed breathing, can cause sudden . The use of prescription opioids can have a number of side effects as well, even when taken as directed: ? Tolerance?meaning you might need to take more of the medication for the same pain relief ? Physical dependence?meaning you have symptoms of withdrawal when a medication is stopped ? Increased sensitivity to pain ? Constipation ? Nausea, vomiting, and dry mouth ? Sleepiness and dizziness ? Confusion ? Depression ? Low levels of testosterone that can result in lower sex drive, energy, and strength ? Itching and sweating RISKS ARE GREATER WITH: ? History of drug misuse, substance use disorder, or overdose ? Mental health conditions (such as depression or anxiety) ? Sleep apnea ? Older age (65 years and older) ? Avoid alcohol while taking prescription opioids. Also, unless specifically advised by your health care provider, medications to avoid include: ? Benzodiazepines (such as Xanax or Valium) ? Muscle relaxants (such as Soma or Flexeril) ? Hypnotics (such as Ambien or Lunesta) ? Other prescription opioids KNOW YOUR OPTIONS Talk to your health care provider about ways to manage your pain that don?t involve prescription opioids. Some of these options may actually work better and have fewer risks and side effects. Options may include: ? Pain relievers such as acetaminophen, ibuprofen, and naproxen ? Some medication that are also used for depression or seizures ? Physical therapy and exercise ? Cognitive behavioral therapy, a psychological, goal-directed approach, in which patients learn how to modify physical, behavioral, and emotional triggers of pain and stress. IF YOU ARE PRESCRIBED OPIOIDS FOR PAIN: ? Never take opioids in greater amounts or more often than prescribed. ? Follow up with your primary health care provider. o Work together to create a plan on how to manage your pain. o Talk about ways to help manage your pain that don?t involve prescription opioids. o Talk about any and all concerns and side effects. ? Help prevent misuse and abuse o Never sell or share prescription opioids. o Never use another person?s prescription opioids. ? Store prescription opioids in a secure place and out of reach of others (this may include visitors, children, friends, and family). ? Safely dispose of unused prescription opioids: Find your community drug take-back program or your pharmacy mail-back program, or flush them down the toilet, following guidance from the Food and Drug Administration (www.fda.gov/Drugs/Resour cesForYou). ? Visit www.cdc.gov/drugoverdose to learn about the risks of opioids (more content not included)... [facility] XR Chest Single Viewon 02-18 XR Chest Single View Exam Date/Time: 02/19/2024 10:46 EDT Reason for Exam: Asthma Report IMPRESSION: NO EVIDENCE OF ACTIVE CARDIOPULMONARY DISEASE, BY PORTABLE CHEST RADIOGRAPHY. EXAM: XR Chest Single View DATE: 02/19/2024 10:36 AM CLINICAL HISTORY: Asthma. COMPARISON: None available. TECHNIQUE: A portable upright AP radiograph of the chest was obtained. FINDINGS: There is no significant pulmonary infiltrate, cardiomegaly, vascular congestion, sizable pleural effusion, pneumothorax, or displaced fractures identified. Ordering Provider: Pedro Norton FINAL REPORT Dictated: 02/19/2024 11:11 am Erwin Connors MD Signed (Electronic Signature): 02/19/2024 11:11 am Signed by: Erwin Connors MD Transcribed by: FELIPA Technologist: CLIFFORD Technical Comments Radiation Dose: Ka,r in mGy = 0 DAP = 0 [facility] C Urineon 11-07-2023 Bacteria identified Cx Nom (U) Microbiology PROCEDURE: Urine Culture [R1] SOURCE: U CleanCatch BODY SITE: COLLECTED DATE/TIME: 11/05/2023 13:09 EST RECEIVED DATE/TIME: 11/05/2023 14:23 EST START DATE/TIME: 11/05/2023 14:23 EST FREE TEXT SOURCE: Bari Alicea DO, DO, John FINAL REPORTS Final Report [] Verified Date/Time: 11/07/2023 10:49 EST 1,000 cfu/ml Mixed skin contaminants Performing Locations R1: This test was performed at: [facility], [address] [place] [address], [id number], [place], [facility] Comment on above: Performed By: #### 1 [id number] ####[address] [address] Auto Diffon 11-05-2023 Basophils/100 WBC (Bld) 0.5 % Normal 0.0-2.0 [facility] Comment on above: Order Comment: Order Added by Discern Expert. Performed By: #### 2 519900, 5615901, 51505776, 7543895, 4303643, 7627911 ####[facility] [address] [place] [address] Basophils/Leukocytes Auto (Bld) [Pure # fraction] 0.1 E9/L Normal 0.0-0.2 [facility] Comment on above: Order Comment: Order Added by Discern Expert. Performed By: #### 2 415012, 1604817, 20132568, 4164106, 7914162, 9966807 ####[address] [address] Eosinophils/100 WBC (Bld) 1.9 % Normal 0.0-8.0 [facility] Comment on above: Order Comment: Order Added by Discern Expert. Performed By: #### 2 712298, 3583331, 38721832, 0180265, 2142672, 8703049 ####[address] [address] Eosinophils/Leukocytes Auto (Bld) [Pure # fraction] 0.3 E9/L Normal 0.0-0.5 [facility] Comment on above: Order Comment: Order Added by Discern Expert. Performed By: #### 2 215137, 3359774, 50483154, 2641638, 0280665, 3094574 ####[address] [address] Lymphocytes/100 WBC (Bld) 27.3 % Normal 14.0-50.0 [facility] Comment on above: Order Comment: Order Added by Discern Expert. Performed By: #### 2 082302, 4423302, 38807152, 5017604, 9994758, 1692515 ####[address] [address] Lymphocytes/Leukocytes Auto (Bld) [Pure # fraction] 4.1 E9/L High 1.0-4.0 [facility] Comment on above: Order Comment: Order Added by Discern Expert. Performed By: #### 2 184685, 1025676, 28244226, 8905214, 1512953, 1541659 ####[address] [address] Monocytes/100 WBC (Bld) 4.6 % Normal 4.0-14.0 [facility] Comment on above: Order Comment: Order Added by Discern Expert. Performed By: #### 2 532013, 6212697, 41475792, 2079387, 0197152, 7422598 ####[facility] [address] [place] [address] Monocytes/Leukocytes Auto (Bld) [Pure # fraction] 0.7 E9/L Normal 0.2-1.0 [facility] Comment on above: Order Comment: Order Added by Discern Expert. Performed By: #### 2 649567, 0589331, 75341512, 2508695, 2703263, 9531560 ####[address] [place] [address] Neutrophils/100 WBC (Bld) 65.7 % Normal 36.0-75.0 [facility] Comment on above: Order Comment: Order Added by Discern Expert. Performed By: #### 2 933271, 6518613, 14200351, 3083479, 9595300, 5237188 ####[address] [place] [address] Neutrophils/Leukocytes Auto (Bld) [Pure # fraction] 9.8 E9/L High 2.0-7.5 [facility] Comment on above: Order Comment: Order Added by Discern Expert. Performed By: #### 2 895899, 0706615, 02418945, 9448867, 5450842, 2579734 ####[facility] [address] [place] [address] BMPon 11-05-2023 Anion gap [Moles/Vol] 12 mmol/L Normal 6-16 [facility] Comment on above: Performed By: #### 2 865678, 1731656, 20043306, 2127499, 4137823, 1435246 ####[facility] [address] [place] [address] BUN/Creat Ratio 7 No Units Low 10-20 [facility] Comment on above: Performed By: #### 2 280792, 7423907, 27241891, 9746079, 9635661, 0947239 ####[facility] [address] [place] [address] Calcium [Mass/Vol] 9.3 mg/dL Normal 8.9-11.1 [facility] Comment on above: Performed By: #### 2 588521, 9580890, 94676269, 7867055, 5343551, 1703248 ####[facility] [address] [place] [address] Chloride [Moles/Vol] 106 mmol/L Normal 101-111 [facility] Comment on above: Performed By: #### 2 522943, 9337204, 72064635, 0826093, 2816328, 5131621 ####[facility] [address] [place] [address] CO2 [Moles/Vol] 25 mmol/L Normal 21-31 [facility] Comment on above: Performed By: #### 2 529770, 7070519, 77875799, 7826251, 7375580, 8668463 ####[facility] [address] [place] [address] Creatinine [Mass/Vol] 0.6 mg/dL Normal 0.5-1.3 [facility] Comment on above: Performed By: #### 2 883376, 7614037, 92705960, 0311095, 0492966, 6758416 ####[facility] [address] [place] [address] Glucose [Mass/Vol] 105 mg/dL Normal 55-199 [facility] Comment on above: Performed By: #### 2 690532, 6199075, 50036216, 0822399, 2599046, 4689333 ####[facility] [address] [place] [address] Potassium [Moles/Vol] 3.9 mmol/L Normal 3.5-5.3 [facility] Comment on above: Performed By: #### 2 708006, 8998137, 14407481, 8384667, 6805118, 4181864 ####[facility] [address] [place] [address] Sodium [Moles/Vol] 139 mmol/L Normal 135-145 [facility] Comment on above: Performed By: #### 2 845011, 3794202, 11620837, 7469524, 9413734, 8467264 ####[facility] [address] [place] [address] Urea nitrogen [Mass/Vol] mg/dL Low 5-21 [facility] Comment on above: Performed By: #### 2 017857, 1541963, 88017848, 3293008, 9032055, 4201213 ####[address] [address] CBC w/ Auto Diffon Erythrocyte distribution width (RBC) [Ratio] 15.6 % High 10.9-14.2 [facility] Comment on above: Performed By: #### 2 557246, 1930846, 33042691, 3302691, 7972579, 8316028 ####[address] [address] Hematocrit (Bld) [Volume fraction] 48.2 % High 34.0-46.0 [facility] Comment on above: Performed By: #### 2 086233, 8351852, 68256256, 3022582, 2069746, 2108218 ####[address] [address] Hemoglobin (Bld) [Mass/Vol] 16.5 g/dL High 12.0-16.0 [facility] Comment on above: Performed By: #### 2 258738, 6104488, 83735374, 0830344, 1787932, 9563199 ####[address] [place] [address] MCH (RBC) [Entitic mass] 34.3 pg High 27.0-34.0 [facility] Comment on above: Performed By: #### 2 064243, 5860635, 35337164, 7110051, 7994988, 3992246 ####[address] [address] MCHC (RBC) [Mass/Vol] 34.3 g/dL Normal 31.4-36.0 [facility] Comment on above: Performed By: #### 2 979870, 7923601, 32066824, 7716345, 5526871, 9966612 ####[address] [address] MCV (RBC) [Entitic vol] 100.2 fL High 80.0-100.0 [facility] Comment on above: Performed By: #### 2 760156, 1510229, 55548150, 3703858, 5797970, 6030966 ####[address] [address] Platelet mean volume (Bld) [Entitic vol] 8.1 fL Normal 6.4-10.8 [facility] Comment on above: Performed By: #### 2 144424, 6219104, 44846572, 5175873, 6966535, 0763916 ####[address] [address] Platelets (Bld) [#/Vol] 312.0 E9/L Normal 150.0-500. 0 [facility] Comment on above: Performed By: #### 2 396411, 9973216, 12697296, 8855588, 9458318, 7530936 ####[address] [address] RBC (Bld) [#/Vol] 4.8 E12/L Normal 4.3-5.9 [facility] Comment on above: Performed By: #### 2 382101, 3741997, 41117017, 3046665, 2153608, 9511339 ####[address] [address] WBC corrected for nucl RBC Auto (Bld) [#/Vol] 14.9 E9/L High 4.0-11.0 [facility] Comment on above: Performed By: #### 2 550732, 5772993, 07914806, 8015676, 5459893, 7145952 ####[facility] [address] [place] [address] CHEMISTRYOrdered By: SYSTEM SYSTEM on 11-05-2023 Albumin [Mass/Vol] 4.2 g/dL Normal 3.3 - 5.0 gm/dL Remisol Chem Alk Phos 61 [iU]/d Normal 21 - 98 Int._Unit/ L Remisol Chem ALT 10 [iU]/d Normal 6 - 46 Int._Unit/ L Remisol Chem Anion gap [Moles/Vol] 12 mmol/L Normal 6 - 16 mEq/L Remisol Chem AST 12 [iU]/d Normal 5 - 43 Int._Unit/ L Remisol Chem Bili Direct 0.2 mg/dL Normal 0.1 - 0.4 mg/dL [facility] Bili Total 0.8 mg/dL Normal 0.0 - 1.1 mg/dL [facility] Calcium [Mass/Vol] 9.3 mg/dL Normal 8.9 - 11. 1 mg/dL [facility] Chloride [Moles/Vol] 106 mmol/L Normal 101 - 1 11 mmol/L [facility] CO2 [Moles/Vol] 25 mmol/L Normal 21 - 31 mmol/L [facility] Creatinine [Mass/Vol] 0.6 mg/dL Normal 0.5 - 1.3 mg/dL [facility] eGFR mL/min/1.73 m2 Normal >=59mL/min /1.73 m2 [facility] Globulin (S) [Mass/Vol] 2.6 g/dL Normal 1.4 - 4.0 gm/dL [facility] Glucose [Mass/Vol] 105 mg/dL Normal 55 - 199 mg/dL [facility] Lipase Lvl 17 unit/L Normal 13 - 58 unit/L [facility] Potassium [Moles/Vol] 3.9 mmol/L Normal 3.5 - 5.3 mmol/L [facility] Protein [Mass/Vol] 6.8 g/dL Normal 6.0 - 7.8 gm/dL [facility] Sodium [Moles/Vol] 139 mmol/L Normal 135 - 145 mmol/L [facility] Urea nitrogen [Mass/Vol] mg/dL Low 5 - 21 mg/dL [facility] Urea nitrogen/Creatinine [Mass ratio] 7 mg/mg Low 10 - 20 [facility] CHEMISTRYOrdered By: Sarah Bethraghav schwartz Aubrey on 11-05-2023 Albumin/Globulin [Mass ratio] 1.6 {ratio} Normal 1.1 - 2.2 [facility] Bili Indirect 0.6 mg/dL Normal 0.1 - 0.9 mg/dL [facility] S Consent for Treatmenton 10-25 Consent for Treatment [id number] Normal [facility] Discharge Instructionson Discharge Instructions [id number] Normal [facility] ED Clinical Summaryon 2022 ED Clinical Summary (Inserted Image. Chiqui ble to display) [place] [id number] ED Clinical Summary Person Information Name: SHIRIN BURGOS/[facility] Age: 33 Years : 1990 Sex: Female Language: Filipino PCP: JANIYA RAYGOZA MD Marital Status: Single Visit Id: Visit Reason: Genitourinary problem; Abdominal pain; ABDOMINAL PAIN Speciality: Acuity: 3 Enc Type: Emergency Med Service: Emergency Arrival: 11/05/2023 12:49:22 Discharge: 11/05/2023 14:16:06 LOS: 000 01:27 Checkin: 11/05/2023 12:49:22 Checkout: 11/05/2023 14:16:06 Dispo Type: Home (Routine DC) EVENTS: Event Name Event Status Request Date/Time Start Date/Time Complete Date/Time Arrive Complete 11/05/2023 12:49:22 11/05/2023 12:49:22 11/05/2023 12:49:22 Document Home Meds Request 11/05/2023 12:49:22 Triage Complete 11/05/2023 12:49:22 11/05/2023 12:58:01 11/05/2023 12:58:01 Bed Assign Complete 11/05/2023 12:53:04 11/05/2023 12:53:04 11/05/2023 12:53:04 Dr Exam Complete 11/05/2023 12:53:04 11/05/2023 12:54:08 11/05/2023 12:54:08 RN Exam Complete 11/05/2023 12:53:04 11/05/2023 13:19:28 11/05/2023 13:19:28 Registration Complete 11/05/2023 12:54:08 11/05/2023 13:52:57 11/05/2023 13:52:57 Meds Admin Complete 11/05/2023 13:00:30 11/05/2023 13:15:23 Pending Labs Inlab 11/05/2023 13:00:30 Lab Inlab 11/05/2023 13:00:30 Urine Collect Complete 11/05/2023 13:00:30 11/05/2023 13:35:33 Pending Labs Complete 11/05/2023 13:10:33 11/05/2023 13:10:33 11/05/2023 13:37:07 Lab Complete 11/05/2023 13:10:33 11/05/2023 13:10:33 11/05/2023 13:37:07 Pending Labs Collected 11/05/2023 13:13:05 11/05/2023 13:13:05 Lab Collected 11/05/2023 13:13:05 11/05/2023 13:13:05 Pending Labs Complete 11/05/2023 13:17:55 11/05/2023 13:17:55 11/05/2023 13:18:04 Lab Complete 11/05/2023 13:17:55 11/05/2023 13:17:55 11/05/2023 13:18:04 Pending Labs Complete 11/05/2023 13:25:21 11/05/2023 13:25:21 11/05/2023 13:25:21 Reg Complete Request 11/05/2023 13:52:57 Reg Bed Request Complete 11/05/2023 13:52:57 11/05/2023 13:52:57 11/05/2023 13:52:57 Meds Admin Complete 11/05/2023 14:04:25 11/05/2023 14:11:47 Discharge Complete 11/05/2023 14:04:47 11/05/2023 14:16:12 11/05/2023 14:16:12 Transfer Complete 11/05/2023 14:16:12 11/05/2023 14:16:12 11/05/2023 14:16:12 ADDRESS: Pending sale to [facility] [address] [phone] [facility] DOC NOTES: MEDICAL INFORMATION: Prescriptions Given: New Medications Printed Prescriptions cephalexin (Keflex 500 mg Cap) 1 Capsules By Mouth every 12 hours for 7 Days. Refills: 0. omeprazole (omeprazole 20 mg Cap-DR) 1 Capsules By Mouth every day. Refills: 0. phenazopyridine (Pyridium 200 mg Tab) 1 Tablets By Mouth 3 times a day. Take one tab by mouth three times a day for three days. Refills: 0. PATIENT EDUCATION INFORMATION: Instructions: Follow up: With: Address: When: Juli Sauceda [address] [place] [address], [address], [address] [address] [phone] Business (1) In 3 days 11/08/2023 With: Address: When: JANIYA RAYGOZA [address] [place] [address] Business (1) In 3 days DIAGNOSIS: Gastritis; UTI (urinary tract infection) Normal [facility] ED Note-Physicianon 11-05-20 ED Note-Physician Basic Information Time Seen: Bari Alicea DO 11/05/2023 12:54 Chief Complaint Pt presents to ED with complaints of epigastric pain onset today. urinary frequency onset days ago, started old ATB today. History of Present Illness 33 female presents to the emergency department with abdominal pain. Patient states earlier this morning she developed epigastric abdominal pain. She is not sure if this is related to the fact that she took 1 doxycycline earlier this morning because she thought she was getting a UTI and this doxycycline was her leftover antibiotic. She has had 2 days of some suprapubic discomfort with urinary frequency and thought she was getting UTI. Patient is also concerned because she does have history of chronic pancreatitis she still does drink alcohol and wonders if this is pancreatitis. She has had prior hysterectomy therefore denies any chance of she also states that she has history of cholecystectomy as well. No fevers with this no vomiting diarrhea constipation no other associated symptoms. She did try heating pad prior to arrival this did seem to help her symptoms. No other aggravating or relieving factors no other associated symptoms no other prior treatments or complaints. Family: Reviewed and noncontributory Social: lives at home Review of systems negative unless otherwise specified in the HPI. Physical Exam Vitals & Measurements T: 36.5 ?C(Oral) HR: 72(Peripheral) RR: 18 BP: 151/93 SpO2: 99% HT: 162 cm WT: 70.1 kg BMI: 26.71 General: The patient appears well and in no apparent distress. Patient is resting comfortably on cart. Skin: Warm, dry, no pallor noted. Head: Normocephalic, atraumatic Neck: No JVD Eye: PERRLA, EOMI ENT: Moist mucus membranes Cardiovascular: Regular rate normal peripheral perfusion Respiratory: No respiratory distress no accessory muscle use no obvious audible wheezing Chest Wall: no deformity Musculoskeletal: normal ROM, no deformity, no swelling GI: Soft no obvious distention. No rebound or rigidity. No guarding. Mild tenderness palpation to the midepigastrium Neurological: A&O moves all extremities equal strength and symmetry Psychiatric: Cooperative and appropriate Medical Decision Making Workup in the ER has been reviewed and noted. Patient does have mild leukocytosis does appear hemoconcentrated is treated here with IV fluids and Protonix. Patient does feel much better and is able to tolerate p.o. challenge. She did request Pyridium for urinary frequency does have evidence of UTI therefore was discharged home on Pyridium and Keflex. Because of her gastritis she is treated with omeprazole given referral to GI follow-up in the outpatient setting return to ER symptoms change or worsen she is comfortable with this plan. Assessment/Plan Gastritis (K29.70: Gastritis, unspecified, without bleeding) UTI (urinary tract infection) (N39.0: Urinary tract infection, site not specified) Orders: cephalexin, 500 mg = 1 cap(s), Oral, q12hr, X 7 day(s), # 14 cap(s), Refills(s) 0 omeprazole, 20 mg = 1 cap(s), Oral, Daily, # 30 cap(s), Refills(s) 0 pantoprazole, 40 mg = 10 mL, Injection, IV Push, Once, Stop date 11/05/23 13:00:00 EST, STAT, Start date 11/05/23 13:00:00 EST, 11/05/23 13:00:00 EST phenazopyridine, 200 mg = 1 tab(s), Oral, TID, Take one tab by mouth three times a day for three days, # 9 tab(s), Refills(s) 0 phenazopyridine, 200 mg = 2 tab(s), Tab, Oral, Once, Stop date 11/05/23 14:03:00 EST, STAT, Start date 11/05/23 14:03:00 EST, 11/05/23 14:03:00 EST Sodium Chloride 0.9% intravenous solution, 1,000 mL, Soln-IV, IV, Once, Stop date 11/05/23 13:00:00 EST, STAT, Start date 11/05/23 13:00:00 EST, Infuse over 61, minute(s) Automated Diff Basic Metabolic Panel CBC w/ Auto Diff eGFR Extra Blue Tube Extra SST Tube Hepatic Function Panel Lipase Level UA With Cult Reflex Urine Culture Medications Administered Given NS 1000 ml Bolus, 1000 mL, IV pantoprazole 40 mg IV Inj, 40 mg, IV Push Disposition Plan Discharge Prescription List Prescriptions Keflex 500 mg Cap, 500 mg= 1 cap(s), Oral, q12hr omeprazole 20 mg Cap-DR, 20 mg= 1 cap(s), Oral, Daily Pyridium 200 mg Tab, 200 mg= 1 tab(s), Oral, TID Follow-up With When Contact Information Juli Sauceda In 3 days 11/08/2023 EST [address], [address] [phone] [phone] Business (1) Additional Instructions: JANIYA RAYGOZA In 3 days [address] [place] [address]- Business (1) Additional Instructions: Problem List/Past Medical History Ongoing No qualifying data Historical No qualifying data Medications Inpatient NS 1000 ml Bolus, 1000 mL, IV, Once pantoprazole 40 mg IV Inj, 40 mg= 10 mL, IV Push, Once Home No active home medications Allergies No Known Allergies Social History Alcohol Substance Abuse Tobacco 10 or more cigarettes (1/2 pack or more)/day in last 30 days Tobacco Use:. Cigarettes, 20 per day. Ready to (more content not included)... Normal [facility] Comment on above: Result Comment: Elec tronically Signed By: Bari Alicea DO\.br\Date and Time Signed: 11/05/23 14:06 EST ED Patient Education Noteon 11-05-2023 ED Patient Education Note Normal [facility] ED Patient Summaryon 023 ED Patient Summary (Inserted Image. Chiqui ble to display) [address] [address] Patient Discharge Instructions Person Information Name: SHIRIN BURGOS Age: 33 Years Arrival Date: 11/05/2023 12:49:22 Discharge Diagnosis: Gastritis; UTI (urinary tract infection) Primary Care Physician: JANIYA RAYGOZA MD Provider Information Primary Provider: Bari Alicea DO Advanced Special Librarian:None The exam and treatment you received in the Emergency Department were for an urgent problem and are not intended as complete care. It is important that you follow up with a doctor, nurse practitioner, or physician?s offset press assistant for ongoing care. If your symptoms become worse or you do not improve as expected and you are unable to reach your usual health care provider, you should return to the Emergency Department. We are available 24 hours a day. SHIRIN BURGOS has been given the following list of patient education materials, prescriptions and follow-up instructions: Follow-up Instructions: With: Address: When: Juli Sauceda [address] [facility], [address], [address] [phone] Business (1) In 3 days 11/08/2023 With: Address: When: JANIYA RAYGOZA [address] [place], [place] [phone] Business (1) In 3 days In the event that this physician does not participate in your insurance network, please consult with your insurance company to find a nearby participating provider. Patient Education Materials: A MESSAGE TO ALL PATIENTS REGARDING OPIOIDS PRESCRIPTION OPIOIDS: WHAT YOU NEED TO KNOW Prescription opioids can be used to help relieve yavwwbtw-qr-nkudwp pain and are often prescribed following a surgery or injury, or for certain health conditions. These medications can be an important part of the treatment but also come with serious risks. It is important to work with your healthcare provider to make sure you are getting the safest, most effective care. WHAT ARE THE RISKS AND SIDE EFFECTS OF OPIOID USE? Prescription opioids carry serious risks of addiction and overdose, especially with prolonged use. An opioid overdose, often marked by slowed breathing, can cause sudden . The use of prescription opioids can have a number of side effects as well, even when taken as directed: ? Tolerance?meaning you might need to take more of the medication for the same pain relief ? Physical dependence?meaning you have symptoms of withdrawal when a medication is stopped ? Increased sensitivity to pain ? Constipation ? Nausea, vomiting, and dry mouth ? Sleepiness and dizziness ? Confusion ? Depression ? Low levels of testosterone that can result in lower sex drive, energy, and strength ? Itching and sweating RISKS ARE GREATER WITH: ? History of drug misuse, substance use disorder, or overdose ? Mental health conditions (such as depression or anxiety) ? Sleep apnea ? Older age (65 years and older) ? Avoid alcohol while taking prescription opioids. Also, unless specifically advised by your health care provider, medications to avoid include: ? Benzodiazepines (such as Xanax or Valium) ? Muscle relaxants (such as Soma or Flexeril) ? Hypnotics (such as Ambien or Lunesta) ? Other prescription opioids KNOW YOUR OPTIONS Talk to your health care provider about ways to manage your pain that don?t involve prescription opioids. Some of these options may actually work better and have fewer risks and side effects. Options may include: ? Pain relievers such as acetaminophen, ibuprofen, and naproxen ? Some medication that are also used for depression or seizures ? Physical therapy and exercise ? Cognitive behavioral therapy, a psychological, goal-directed approach, in which patients learn how to modify physical, behavioral, and emotional triggers of pain and stress. IF YOU ARE PRESCRIBED OPIOIDS FOR PAIN: ? Never take opioids in greater amounts or more often than prescribed. ? Follow up with your primary health care provider. o Work together to create a plan on how to manage your pain. o Talk about ways to help manage your pain that don?t involve prescription opioids. o Talk about any and all concerns and side effects. ? Help prevent misuse and abuse o Never sell or share prescription opioids. o Never use another person?s prescription opioids. ? Store prescription opioids in a secure place and out of reach of others (this may include visitors, children, friends, and family). ? Safely dispose of unused prescription opioids: Find your community drug take-back program or your pharmacy mail-back program, or flush them down the toilet, following guidance from the Food and Drug Administration (www.fda.gov/Drugs/Resour cesForYou). ? Visit www.cdc.gov/drugoverdose to learn about the risks of opioids abuse and overdose. ? If you believe you may be struggling with addiction, tell your health care prof (more content not included)... Normal [facility] HEMATOLOGYOrdered By: SYSTEM SYSTEM on 11-05-2023 Basophils/100 WBC (Bld) 0.5 % Normal 0.0 - 2.0 % [facility] Basophils/Leukocytes Auto (Bld) [Pure # fraction] 0.1 E9/L Normal 0.0 - 0.2 E9/L [facility] Eosinophils/100 WBC (Bld) 1.9 % Normal 0.0 - 8.0 % [facility] Eosinophils/Leukocytes Auto (Bld) [Pure # fraction] 0.3 E9/L Normal 0.0 - 0.5 E9/L [facility] Lymphocytes/100 WBC (Bld) 27.3 % Normal 14.0 - 50.0 % [facility] Lymphocytes/Leukocytes Auto (Bld) [Pure # fraction] 4.1 E9/L High 1.0 - 4.0 E9/L [facility] Monocytes/100 WBC (Bld) 4.6 % Normal 4.0 - 14.0 % [facility] Monocytes/Leukocytes Auto (Bld) [Pure # fraction] 0.7 E9/L Normal 0.2 - 1.0 E9/L [facility] Neutrophils/100 WBC (Bld) 65.7 % Normal 36.0 - 75.0 % [facility] Neutrophils/Leukocytes Auto (Bld) [Pure # fraction] 9.8 E9/L High 2.0 - 7.5 E9/L [facility] HEMATOLOGYOrdered By: Tiffanie au on 11-05-2023 Erythrocyte distribution width (RBC) [Ratio] 15.6 % High 10.9 - 14.2 % [facility] Hematocrit (Bld) [Volume fraction] 48.2 % High 34.0 - 46.0 % [facility] Hemoglobin (Bld) [Mass/Vol] 16.5 g/dL High 12.0 - 16.0 gm/dL [facility] MCH (RBC) [Entitic mass] 34.3 pg High 27.0 - 34.0 pg [facility] MCHC (RBC) [Mass/Vol] 34.3 g/dL Normal 31.4 - 36.0 gm/dL [facility] MCV (RBC) [Entitic vol] 100.2 fL High 80.0 - 100.0 fL [facility] Platelet mean volume (Bld) [Entitic vol] 8.1 fL Normal 6.4 - 10.8 fL [facility] Platelets (Bld) [#/Vol] 312.0 E9/L Normal 150.0 - 500.0 E9/L [facility] RBC (Bld) [#/Vol] 4.8 E12/L Normal 4.3 - 5.9 E12/L [facility] WBC corrected for nucl RBC Auto (Bld) [#/Vol] 14.9 E9/L High 4.0 - 11.0 E9/L [facility] Hep Func Panelon 11-05-2023 Albumin/Globulin [Mass ratio] 1.6 {ratio} Normal 1.1-2.2 [facility] Comment on above: Performed By: #### 2 [id number], [id number], [id number], 2113439, 4206177, 9098922 ####[facility] [address] [place] [address] Bili Indirect 0.6 mg/dL Normal 0.1-0.9 [facility] Comment on above: Performed By: #### 2 687122, 5076439, 55473635, 9681635, 0172038, 6800624 ####[facility] [address] [place] [address] Albumin [Mass/Vol] 4.2 g/dL Normal 3.3-5.0 [facility] Comment on above: Performed By: #### 2 288752, 7940131, 96426036, 4691113, 3815006, 5176779 ####[facility] [address] [place] [address] Alk Phos 61 Int._Unit/L Normal 21-98 [facility] Comment on above: Performed By: #### 2 912458, 6238441, 55643651, 7739260, 0820790, 3591996 ####[facility] [address] [place] [address] ALT 10 Int._Unit/L Normal 6-46 [facility] Comment on above: Performed By: #### 2 079168, 8965329, 76058364, 2263145, 9798124, 2909630 ####[address] [address] AST 12 Int._Unit/L Normal 5-43 [facility] Comment on above: Performed By: #### 2 299593, 0609278, 30148797, 2682649, 9185102, 7884701 ####[address] [address] Bili Direct 0.2 mg/dL Normal 0.1-0.4 [facility] Comment on above: Performed By: #### 2 369545, 8418534, 73151012, 0251211, 2070895, 8198380 ####[facility] [address] [place] [address] Bili Total 0.8 mg/dL Normal 0.0-1.1 [facility] Comment on above: Performed By: #### 2 805256, 7493328, 69955833, 1467043, 6513562, 4909693 ####[facility] [address] [place] [address] Globulin (S) [Mass/Vol] 2.6 g/dL Normal 1.4-4.0 [facility] Comment on above: Performed By: #### 2 735018, 6969571, 12963634, 2305714, 9559808, 3690824 ####[facility] [address] [place] [address] Protein [Mass/Vol] 6.8 g/dL Normal 6.0-7.8 [facility] Comment on above: Performed By: #### 2 863454, 7026372, 82385880, 7635886, 1202208, 0223293 ####[facility] [address] [place] [address] Lipase Levelon 11-05-2023 Lipase Lvl 17 unit/L Normal 13-58 [facility] Comment on above: Performed By: #### 2 796167, 8585205, 70029120, 1800785, 6140187, 5985422 ####[facility] [address] [place] [address] UA With Cult Reflexon 2022 Bacteria LM Ql (Urine sed) TRACE Normal Trace [facility] Comment on above: Performed By: #### 1 1058182, 9076005 ####[address] [address] Bilirubin Ql (U) Negative Normal Negative [facility] Comment on above: Performed By: #### 1 3829083, 1051721 ####[facility] [address] [place] [address] Clarity (U) CLEAR Normal Clear [facility] Comment on above: Performed By: #### 1 3810082, 5902902 ####[facility] [address] [place] [address] Color (U) YELLOW Normal Yellow [facility] Comment on above: Performed By: #### 1 5704360, 8001808 ####[facility] [address] [place] [address] Epithelial cells.squamous LM.HPF (Urine sed) [#/Area] 0-2 Normal 0-2 [facility] Comment on above: Performed By: #### 1 1467288, 1598891 ####[facility] [address] [place] [address] Glucose Test strip (U) [Mass/Vol] Negative Normal Negative [facility] Comment on above: Performed By: #### 1 4859391, 2394572 ####[facility] [address] [place] [address] Hemoglobin Ql (U) 1+ Abnormal Negative [facility] Comment on above: Performed By: #### 1 8338702, 0787435 ####[facility] [address] [place] [address] Ketones (U) [Mass/Vol] Negative Normal Negative [facility] Comment on above: Performed By: #### 1 7947613, 2458368 ####[facility] [address] [place] [address] [place].plasma/[place] .RBC (Bld) [Mass ratio] 4-20 Normal 0-3 [facility] Comment on above: Performed By: #### 1 5868151, 8621869 ####[facility] [address] [place] [address] Mucus Ql (Urine sed) TRACE Normal Fish [facility] Comment on above: Performed By: #### 1 9382771, 0479776 ####[facility] [address] [place] [address] Nitrite Ql (U) Negative Normal Negative [facility] Comment on above: Performed By: #### 1 8258249, 9404945 ####[facility] [address] [place] [address] pH (U) 7.0 [pH] Invalid Interpretation Code 5.0-9.0 [facility] Comment on above: Performed By: #### 1 7364828, 1111155 ####[facility] [address] [place] [address] Protein (U) [Mass/Vol] Negative Normal Negative [facility] Comment on above: Performed By: #### 1 7229292, 4925439 ####[facility] [address] [place] [address] Specific gravity (U) [Rel density] <=1.005 Invalid Interpretation Code 1.005-1.03 0 [facility] Comment on above: Performed By: #### 1 5986993, 1058429 ####[facility] [address] [place] [address] Type of Urine collection method Clean Catch Normal [facility] Comment on above: Performed By: #### 1 1249202, 3019873 ####[facility] [address] [place] [address] Urobilinogen Qn (U) 0.2 {Ta'U}/dL Normal 0.0-1.0 [facility] Comment on above: Performed By: #### 1 9812052, 2000888 ####[facility] [address] [place] [address] WBC Auto Ql (U) 3+ Abnormal Negative [facility] Comment on above: Performed By: #### 1 6726599, 2338141 ####[facility] [address] [place] [address] WBC LM.HPF (Urine sed) [#/Area] /[HPF] Abnormal 0-5 [facility] Comment on above: Performed By: #### 1 0615170, 9113348 ####[facility] [address] [place], [place] [address] URINALYSISOrdered By: Maty Barrett on 11-05-2023 Bacteria LM Ql (Urine sed) Trace /HPF Normal Trace/HPF [facility] UA Auto SS Bilirubin Ql (U) Negative (11/05/23 1:09 PM) Normal Negative [facility] UA Auto SS Clarity (U) Clear (11/05/23 1:09 PM) Normal Clear [facility] UA Auto SS Color (U) Yellow (11/05/23 1:09 PM) Normal Yellow [facility] UA Auto SS Epithelial cells.squamous LM.HPF (Urine sed) [#/Area] 0-2 /HPF Normal 0-2/HPF [facility] UA Aut o SS Glucose Test strip (U) [Mass/Vol] Negative (11/05/23 1:09 PM) Normal Negative [facility] UA Auto SS Hemoglobin Ql (U) 1+ *ABN* (11/05/23 1:09 PM) Invalid Interpretation Code Negative [facility] UA Auto SS Ketones (U) [Mass/Vol] Negative (11/05/23 1:09 PM) Normal Negative [facility] UA Auto SS [place].plasma/[place] .RBC (Bld) [Mass ratio] 4-20 /HPF Normal 0-3/HPF [facility] UA Auto SS Mucus Ql (Urine sed) Trace (11/05/23 1:09 PM) Normal [facility] UA Auto SS Nitrite Ql (U) Negative (11/05/23 1:09 PM) Normal Negative [facility] UA Auto SS pH (U) 7.0 *NA* (11/05/23 1:09 PM) Invalid Interpretation Code 5.0 - 9.0 [facility] UA Auto SS Protein (U) [Mass/Vol] Negative (11/05/23 1:09 PM) Normal Negative [facility] UA Auto SS Specific gravity (U) [Rel density] <=1.005 *NA* (11/05/23 1:09 PM) Invalid Interpretation Code 1.005 - 1.030 [facility] UA Auto SS UA Spec Desc Clean Catch (11/05/23 1:09 PM) Normal FT UA Auto SS Urobilinogen Qn (U) 0.1683728 {Ta'U}/dL Normal 0.0 - 1.0 EU/dL [facility] UA Auto SS WBC Auto Ql (U) 3+ *ABN* (11/05/23 1:09 PM) Invalid Interpretation Code Negative [facility] UA Auto SS WBC LM.HPF (Urine sed) [#/Area] /[HPF] Invalid Interpretation Code 0-5/HPF [facility] UA Auto SS eGFRon 11-05-2023 GFR/1.73 sq M.predicted among non-blacks MDRD (S/P/Bld) [Vol rate/Area] mL/min/{1.73_m2} Normal >=59 [facility] Comment on above: Order Comment: Order added by Discern Expert. Performed By: #### 2 524049, 3445075, 90029064, 8586444, 3403228, 0728921 ####[facility] [address] [place] [address] CBC with Auto Differentialon 08-11-2023 Basophils (Bld) [#/Vol] [facility] Basophils/100 WBC (Bld) 0 - 2 % [facility] Eosinophils (Bld) [#/Vol] 0.16 10*3/uL [facility] Eosinophils/100 WBC (Bld) 2 % 0 - 5 % [facility] Erythrocyte distribution width (RBC) [Ratio] 14.0 % 12.1 - 15.2 % [facility] Hematocrit (Bld) [Volume fraction] 49.5 % High 36 - 46 % [facility] Hemoglobin (Bld) [Mass/Vol] 16.8 g/dL High 12.0 - 16.0 g/dL [facility] Immature granulocytes (Bld) [#/Vol] [facility] Immature granulocytes/100 WBC (Bld) 0 % [facility] Interpretation and review of laboratory results Abnormal [facility] Lymphocytes/100 WBC (Bld) 28 % 15 - 40 % [facility] Lymphocytes/100 WBC (Bld) 2.30 % [facility] MCH (RBC) [Entitic mass] 34.0 pg 26 - 34 pg [facility] MCHC (RBC) [Mass/Vol] 34.0 g/dL 31 - 3 7 g/dL [facility] MCV (RBC) [Entitic vol] 100.2 fL High 80 - 100 fL [facility] Monocytes/100 WBC (Bld) 3 % Low 4 - 8 % [facility] Monocytes/100 WBC (Bld) 0.25 % [facility] Morphology Venancio (Bld) [Interp] Manual Differential Performed [facility] Neutrophils/100 WBC (Bld) 67 % 47 - 75 % [facility] Platelets (Bld) [#/Vol] 255 10*3/uL [facility] RBC (Bld) [#/Vol] 4.94 10*6/uL 4.0 - 5.2 m/uL [facility] Segmented neutrophils/100 WBC (Bld) 5.49 % [facility] WBC other (Bld) [#/Vol] 8.2 [facility] Comprehensive Metabolic Pane sridhar 08-11-2023 Albumin [Mass/Vol] 4.0 g/dL 3.5 - 5.2 g/dL [facility] ALP [Catalytic activity/Vol] 80 U/L 35 - 104 U/L [facility] ALT [Catalytic activity/Vol] 18 U/L 5 - 33 U/L [facility] Anion gap [Moles/Vol] 10 mmol/L 9 - 17 mmol/L [facility] AST [Catalytic activity/Vol] 21 U/L NINF - 32 U/L [facility] Bilirubin [Mass/Vol] 0.7 mg/dL 0.3 - 1 .2 mg/dL [facility] Calcium [Mass/Vol] 9.3 mg/dL 8.6 - 10. 4 mg/dL [facility] Chloride [Moles/Vol] 104 mmol/L 98 - 10 7 mmol/L [facility] CO2 [Moles/Vol] 23 mmol/L 20 - 31 mmol/L [facility] Creatinine [Mass/Vol] 0.6 mg/dL 0.5 - 0.9 mg/dL [facility] GFR/1.73 sq M.predicted MDRD (S/P/Bld) [Vol rate/Area] - PINF [facility] Comment on above: These results are not intended for use in patients <18 years of age. eGFR results are calculated without a race factor using the 2020 CKD-EPI equation. Careful clinical correlation is recommended, particularly when comparing to results calculated using previous equations. The CKD-EPI equation is less accurate in patients with extremes of muscle mass, extra-renal metabolism of creatine, excessive creatine ingestion, or following therapy that affects renal tubular secretion. Glucose [Mass/Vol] 79 mg/dL 70 - 99 mg/dL [facility] Interpretation and review of laboratory results Abnormal [facility] Potassium [Moles/Vol] 3.7 mmol/L 3.7 - 5.3 mmol/L [facility] Protein [Mass/Vol] 6.9 g/dL 6.4 - 8.3 g/dL [facility] Sodium [Moles/Vol] 137 mmol/L 135 - 144 mmol/L [facility] Urea nitrogen [Mass/Vol] 4 mg/dL Low 6 - 20 mg/dL [facility] Urea nitrogen/Creatinine [Mass ratio] 7 mg/mg Low 9 - 20 [facility] Lipaseon 08-11-2023 Lipase [Catalytic activity/Vol] 28 U/L 13 - 60 U/L [facility] No Panel Informationon 08-11 [facility] XR CHEST (2 VW)on 08-11-2023 No acute cardiopulmonary disease [facility] RIS CONSOLIDATED EXAM: XR CHEST (2 VW ) HISTORY: cough COMPARISON: 12/29/2022. TECHNIQUE: PA and lateral views FINDINGS: PA and lateral views demonstrate the lung patel to be clear and well-expanded without a consolidative pulmonary infiltrate, pleural effusion, or pneumothorax. The hemidiaphragms are smooth and the costophrenic angles are clear. Heart size measures within normal limits. Acute bony disease is not seen. [facility] RIS CONSOLIDATED García Garcia, - 08/11/2023 EXAM: XR CHEST (2 VW) HISTORY: cough COMPARISON: 12/29/2022. TECHNIQUE: PA and lateral views FINDINGS: PA and lateral views demonstrate the lung patel to be clear and well-expanded without a consolidative pulmonary infiltrate, pleural effusion, or pneumothorax. The hemidiaphragms are smooth and the costophrenic angles are clear. Heart size measures within normal limits. Acute bony disease is not seen. 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 TOXIN, PCR; Status:Active; Requested for:15Jul2023; Perform:Lab Services - Lab To Draw (Non-Blood Test); Due:13Oct2023;Ordered; For:Bile salt-induced diarrhea; Ordered By:Jing Troncoso; MRI Pancreas w/wo Contrast; Status:Hold For - Scheduling; Requested for:15Jul2023; Perform: Radiology Services Imaging; Due:13Oct2023;Ordered; For:Bile salt-induced diarrhea; Ordered By:Jing Troncoso; Radiologist to Determine Optimal Study : Y Does the patient have a Cochlear Implant, Pacemaker, Defibrilator, Pacing Wire, Brain Aneurysm Clip, Implanted Nerve or Bone Graft Simulator, Implanted Breast Tissue Ammonia Print Operator, Glucose Monitor, or Neulasta Device? : No Is the patient or breast feeding? : No What are the patient's signs and symptoms? : Right upper quadrant pain status postcholecystectomy elevated alk phos Pancreatic Elastase, Stool; Status:Active; Requested for:[id number]; Perform:Lab Services - Lab To Draw (Non-Blood Test); Due:13Oct2023;Ordered; For:Bile salt-induced diarrhea; Ordered By:Jing Troncoso; Bile salt-induced diarrhea, Sphincter of Oddi spasm Start: Cholestyramine 4 GM Oral Packet; MIX THE CONTENTS OF 1 POWDER PACKET WITH 2-6 OZ OF NONCARBONATED BEVERAGE AND SWALLOW TWICE DAILY Rx By: Jing Troncoso; Dispense: 5 Days ; #:60 Packet; Refill: 5;For: Bile salt-induced diarrhea, Sphincter of Oddi spasm; CHEIKH = N; Verified Transmission to [facility] #16; Last Updated By: KDPOF; 07/15/2023 2:11:41 PM Sphincter of Oddi spasm Start: Dicyclomine HCl - 20 MG Oral Tablet; TAKE 1 TABLET BY MOUTH EVERY 6 HOURS NEEDED Rx By: Jing Troncoso; Dispense: 30 Days ; #:40 Tablet; Refill: 2;For: Sphincter of Oddi spasm; CHEIKH = N; Verified Transmission to [facility]16; Last Updated By: KDPOF; 07/15/2023 2:11:41 PM Provider Impressions Treat for presumptive bile salt induced diarrhea check stool pancreatic elastase and cultures as well as C. difficile. 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 Chief Complaint FUV in office today for abdominal pain feels like gallstones, but I don?t have a gallbladder diarrhea, nausea, occasional vomiting. History of Present IllnessHaley is a 33-year-old female status postcholecystectomy who presents today in follow-up for chronic pancreatitis. I reviewed the CT scan that she brought from [address] that was done 4 months ago. No evidence of pancreatic calcifications or pseudocyst. She has absent gallbladder does show some chronic bile duct dilatation but no obvious stone is noted. She states that it feels like her gallbladder is gone back she has pain in her right upper quadrant 20 minutes after meals and severe enough that radiates into her back and down her side. She states that in one of the visits with her family doctor she was told that these are indications of chronic pancreatitis and states that her liver enzymes and pancreatic enzymes were elevated with 1 episode. She admits that it does not matter what she eats but her symptoms are often worse if she eats high residue foods. She is also having chronic diarrhea which did not improve with trial of Creon. Bowel movements are described as foamy yellow float on top of the toilet and are smelly. She denies any weight loss. Review of Systems Constitutional: no fever, no chills, not feeling tired and no recent weight loss. ENT: no lymphadenopathy. Cardiovascular: no shortness of breath and no chest pain. Respiratory: no cough. Gastrointestinal: as noted in HPI. Musculoskeletal: no joint swelling. Integumentary: no rashes, no skin lesions and was no jaundiced. All other systems have been reviewed and are negative for complaint. Active Problems Problems Chronic pancreatitis (577.1) (K86.1) Surgical History Problems History of section History of Cholecystectomy History of Tonsillectomy with adenoidectomy Family History Mother Family history of chronic obstructive pulmonary disease (V17.6) (Z82.5) Family history of epilepsy (V17.2) (Z82.0) Brother Family history of Sudden cardiac arrest Social History Problems Daily caffeine consumption Does not have living will Medical marijuana daily No alcohol use Smokes cigarettes (305.1) (F17.210) Allergies Medication No Known Drug Allergies Recorded By: Chana Rios; 01/03/2023 2:52:04 PM Current Meds Medication NameInstruction Creon [id number] UNIT Oral Capsule Delayed Release ParticlesTAKE 1 CAPSULE 3 times daily Vitals Vital Signs Recorded: 15Jul2023 01:32PM Height5 ft 4 in Fbyham652 lb 2.62 oz BMI Wlmcwuakmh90.09 kg/m2 BSA Calculated1.71 Physical Exam Constitutional General appearance: In no acute distress . Eyes (more content not included)... Normal [employer] VITAMIN D 1,25-DIHYDROXYon 0 02-08-2023 VITAMIN D 1,25-DIHYDROXY 64.3 pg/mL Normal 19.9-79.3 [facility] Comment on above: Result Comment: INTE RPRETIVE INFORMATION: Vitamin D, 1,25-Dihydroxy This test is primarily indicated during patient evaluation for hypercalcemia and renal failure. A normal result does not rule out Vitamin D deficiency. The recommended test for diagnosing Vitamin D deficiency is Vitamin D 25-hydroxy. Performed By: [employer] [address] [place] [address] Photographs Curator: Ector King MD, PhD Performed By: #### V TDDI #### [facility] [employer] [address] [place] [address] CBC AND DIFFERENTIALon 02-01 % AUTOMATED IMMATURE GRAN 0.3 % Normal 0.0 - 0.9 [facility] Comment on above: Result Comment: Gladis ture Granulocyte Count (IG) includes promyelocytes, myelocytes and metamyelocytes but does not include bands. Percent differential counts (%) should be interpreted in the context of the absolute cell counts (cells/L). Performed By: #### C BCDF #### [address] [address] Basophils (Bld) [#/Vol] 0.04 10*3/uL Normal 0.00 - 0.10 [facility] Comment on above: Performed By: #### C BCDF #### [address] [address] Basophils/100 WBC (Bld) 0.4 % Normal 0.0 - 2.0 [facility] Comment on above: Performed By: #### C BCDF #### [address] [address] Eosinophils (Bld) [#/Vol] 0.17 10*3/uL Normal 0.00 - 0.70 [facility] Comment on above: Performed By: #### C BCDF #### [address] [address] Eosinophils/100 WBC (Bld) 1.8 % Normal 0.0 - 6.0 [facility] Comment on above: Performed By: #### C BCDF #### [address] [address] Erythrocyte distribution width (RBC) [Ratio] 13.9 % Normal 11.5 - 14.5 [facility] Comment on above: Performed By: #### C BCDF #### [address] [address] Hematocrit (Bld) [Volume fraction] 43.8 % Normal 36.0 - 46.0 [facility] Comment on above: Performed By: #### C BCDF #### [address] [address] Hemoglobin (Bld) [Mass/Vol] 14.5 g/dL Normal 12.0 - 16.0 [facility] Comment on above: Performed By: #### C BCDF #### [address] [address] Lymphocytes (Bld) [#/Vol] 3.24 10*3/uL Normal 1.20 - 4.80 [facility] Comment on above: Performed By: #### C BCDF #### [address] [address] Lymphocytes/100 WBC (Bld) 35.2 % Normal 13.0 - 44.0 [facility] Comment on above: Performed By: #### C BCDF #### [address] [address] MCHC (RBC) [Mass/Vol] 33.1 g/dL Normal 32.0 - 36.0 [facility] Comment on above: Performed By: #### C BCDF #### [address] [address] MCV (RBC) [Entitic vol] 101 fL High 80 - 100 [facility] Comment on above: Performed By: #### C BCDF #### [address] [address] Monocytes (Bld) [#/Vol] 0.47 10*3/uL Normal 0.10 - 1.00 [facility] Comment on above: Performed By: #### C BCDF #### [address] [address] Monocytes/100 WBC (Bld) 5.1 % Normal 2.0 - 10.0 [facility] Comment on above: Performed By: #### C BCDF #### [address] [address] Neutrophils (Bld) [#/Vol] 5.26 10*3/uL Normal 1.20 - 7.70 [facility] Comment on above: Result Comment: Perc ent differential counts (%) should be interpreted in the context of the absolute cell counts (cells/L). Performed By: #### C BCDF #### [address] [address] Neutrophils/100 WBC (Bld) 57.2 % Normal 40.0 - 80.0 [facility] Comment on above: Performed By: #### C BCDF #### [address] [address] Platelets (Bld) [#/Vol] 358 10*3/uL Normal 150 - 450 [facility] Comment on above: Performed By: #### C BCDF #### [address] [address] RBC 4.34 x10E12/L Normal 4.00 - 5.20 [facility] Comment on above: Performed By: #### C BCDF #### [address] [address] WBC (Bld) [#/Vol] 9.2 10*3/uL Normal 4.4 - 11.3 [facility] Comment on above: Performed By: #### C BCDF #### [address] [address] CELIAC DISEASE SEROLOGY PANE Sridhar 02-01-2023 DEAMIDATED GLIADIN PEPTIDE IGG <1 Normal 0 - 14 [facility] Comment on above: Result Comment: Fals e negative Deamidated Gliadin Peptide Antibody, IgG results can occur in patients already adhering to a gluten-free diet. Tissue Transglutaminase Antibody, IgA is the preferred test for screening patients with suspected Celiac Disease. Performed By: #### C ELP1 #### [facility] [address] [place] [address] TTG AB,IGG <1 Normal 0 - 14 [facility] Comment on above: Result Comment: Fals e negative Tissue Transglutaminase Antibody, IgG results can occur in patients already adhering to a gluten-free diet. Tissue Transglutaminase Antibody, IgA is the preferred test for screening patients with suspected Celiac Disease. Performed By: #### C ELP1 #### [facility] [address] [place] [address] DEAMIDATED GLIADIN PEPTIDE IGA 9 U/mL Normal 0 - 14 [facility] Comment on above: Result Comment: Fals e negative Deamidated Gliadin Peptide Antibody, IgA results can occur in patients already adhering to a gluten-free diet or patients with IgA deficiency. Tissue Transglutaminase Antibody, IgA is the preferred test for screening patients with suspected Celiac Disease. Performed By: #### C ELP1 #### [facility] [address] [place] [address] TTG AB,IGA <1 Normal 0 - 14 [facility] Comment on above: Result Comment: Serenity ac disease is unlikely. False negative Tissue Transglutaminase Antibody, IgA results can occur in approximately 10% of patients with celiac disease, patients already adhering to a gluten-free diet, or patients with IgA deficiency. Performed By: #### C ELP1 #### [facility] [address] [place] [address] COMPREHENSIVE PANELon 2022 Albumin [Mass/Vol] 4.3 g/dL Normal 3.4 - 5.0 [facility] Comment on above: Performed By: #### C MP #### [address] [address] ALP [Catalytic activity/Vol] 57 U/L Normal 33 - 110 [facility] Comment on above: Performed By: #### C MP #### [address] [address] ALT [Catalytic activity/Vol] 12 U/L Normal 7 - 45 [facility] Comment on above: Result Comment: Sindhu ents treated with Sulfasalazine may generate falsely decreased results for ALT. Performed By: #### C MP #### [address] [address] Anion gap [Moles/Vol] 11 mmol/L Normal 10 - 20 [facility] Comment on above: Performed By: #### C MP #### [address] [address] AST [Catalytic activity/Vol] 13 U/L Normal 9 - 39 [facility] Comment on above: Performed By: #### C MP #### [address] [address] Bilirubin [Mass/Vol] 0.6 mg/dL Normal 0.0 - 1.2 [facility] [place] Comment on above: Performed By: #### C MP #### [address] [address] Calcium [Mass/Vol] 9.2 mg/dL Normal 8.6 - 10.3 [facility] Comment on above: Performed By: #### C MP #### [address] [address] Chloride [Moles/Vol] 106 mmol/L Normal 98 - 107 [facility] [place] Comment on above: Performed By: #### C MP #### [address] [address] Creatinine [Mass/Vol] 0.64 mg/dL Normal 0.50 - 1.05 [facility] Comment on above: Performed By: #### C MP #### [address] [address] eGFR FEMALE >90 Normal >90 [facility] Comment on above: Result Comment: CALC ULATIONS OF ESTIMATED GFR ARE PERFORMED USING THE 2020 CKD-EPI STUDY REFIT EQUATION WITHOUT THE RACE VARIABLE FOR THE IDMS-TRACEABLE CREATININE METHODS. https://jasn.asnjournals.org/content/early/ASN.36531 [address]28 Performed By: #### C MP #### [address] [address] Glucose [Mass/Vol] 74 mg/dL Normal 74 - 99 [facility] Comment on above: Performed By: #### C MP #### [address] [address] HCO3 (Bld) [Moles/Vol] 26 mmol/L Normal 21 - 32 [facility] Comment on above: Performed By: #### C MP #### [address] [address] Potassium [Moles/Vol] 3.6 mmol/L Normal 3.5 - 5.3 [facility] Comment on above: Performed By: #### C MP #### [address] [address] Protein [Mass/Vol] 6.6 g/dL Normal 6.4 - 8.2 [facility] Comment on above: Performed By: #### C MP #### [address] [address] Sodium [Moles/Vol] 139 mmol/L Normal 136 - 145 [facility] Comment on above: Performed By: #### C MP #### [address] [address] Urea nitrogen [Mass/Vol] 7 mg/dL Normal 6 - 23 [facility] Comment on above: Performed By: #### C MP #### [address] [address] [address] ABDOMEN AND PELVIS W IV C [facility] 02-01-2023 CT ABDOMEN AND PELVIS W IV CONTRAST Patient Name: SHIRIN BURGOS STUDY: CT ABDOMEN AND PELVIS W IV CONTRAST; 02/01/2023 11:47 am INDICATION: Pancreatitis K86.1: Chronic pancreatitis. COMPARISON: None. ACCESSION NUMBER(S): [id number] ORDERING CLINICIAN: JING TRONCOSO TECHNIQUE: CT of the abdomen and pelvis was performed. Standard contiguous axial images were obtained at 3 mm slice thickness through the abdomen and pelvis. Coronal and sagittal reconstructions at 3 mm slice thickness were performed. 90 cc Omnipaque 350 was administered intravenously without immediate complication. FINDINGS: LOWER CHEST: The included lung bases demonstrate bibasilar punctate nodules measuring less than 4 mm and likely punctate scars. ABDOMEN: LIVER: The liver is grossly unremarkable. No definite focal liver lesions. BILE DUCTS: No bile duct dilatation. GALLBLADDER: Prior cholecystectomy. PANCREAS: Unremarkable pancreas. SPLEEN: Remarkable spleen. ADRENAL GLANDS: No adrenal masses. KIDNEYS AND URETERS: No evidence of hydronephrosis. No definite renal masses or stones. No hydroureter. PELVIS: BLADDER: Bladder is grossly unremarkable. REPRODUCTIVE ORGANS: There is a small cystic structure in the right adnexa which may represent a right ovarian cyst. This is approximately 25 mm. Patient is status post hysterectomy. BOWEL: No evidence of bowel obstruction. No definite focal inflammatory changes. Unremarkable appendix. VESSELS: Grossly unremarkable. PERITONEUM/RETROPERITONEU M/LYMPH NODES: No retroperitoneal adenopathy. No ascites. BONES AND ABDOMINAL WALL: Grossly unremarkable. IMPRESSION: Status post hysterectomy. Small cystic structure in the right adnexa may represent a right ovarian cyst. Follow-up pelvic ultrasound to further evaluate as clinically warranted. Prior cholecystectomy. Prior appendectomy. Electronically signed by: DUSTIN EDGE MD [facility] CT Abdomen and Pelvis with I V Contraston 02-01-2023 CT Abdomen and Pelvis W contrast IV Please click on the link to view the study images Normal [place] [address] Work Phone: CT Abdomen and Pelvis W contrast IV Normal [place] [address] Work Phone: Complete Blood Count + Diffe rentialon 02-01-2023 Basophils/100 WBC (Bld) 0.4 % 0.0 - 2.0 [place] [address] Work Phone: Erythrocyte distribution width (RBC) [Ratio] 13.9 % See Below [place] [address] Work Phone: Comment on above: Reference Range: 11. 5 - 14.5 Hematocrit (Bld) [Volume fraction] 43.8 % See Below [place] [address] Work Phone: Comment on above: Reference Range: 36. 0 - 46.0 Hemoglobin (Bld) [Mass/Vol] 14.5 g/dL See Below [place] [address] Work Phone: Comment on above: Reference Range: 12. 0 - 16.0 Lymphocytes/100 WBC (Bld) 35.2 % See Below [facility] [place] [address] Work Phone: Comment on above: Reference Range: 13. 0 - 44.0 MCHC (RBC) [Mass/Vol] 33.1 g/dL See Below [facility] [place] [address] Work Phone: Comment on above: Reference Range: 32. 0 - 36.0 MCV (RBC) [Entitic vol] 101 fL above high threshold 80 - 100 [facility] [place] [address] Work Phone: Monocytes/100 WBC (Bld) 5.1 % 2.0 - 10.0 [facility] [place] [address] Work Phone: Neutrophils/100 WBC (Bld) 57.2 % See Below [facility] [place] [address] Work Phone: Comment on above: Reference Range: 40. 0 - 80.0 Platelets (Bld) [#/Vol] 358 10*3/uL 150 - 450 [place] [address] Work Phone: RBC (Bld) [#/Vol] 4.34 {x10E12/L} See Below [facility] [place] [address] Work Phone: Comment on above: Reference Range: 4.0 0 - 5.20 WBC (Bld) [#/Vol] 9.2 10*3/uL 4.4 - 11.3 [facility] [place] [address] Work Phone: Complete Blood Count + Differential 0.04 {x10E9/L} See Below [facility] [place] [address] Work Phone: Comment on above: Reference Range: 0.0 0 - 0.10 Complete Blood Count + Differential 0.17 {x10E9/L} See Below [facility] [place] [address] Work Phone: Comment on above: Reference Range: 0.0 0 - 0.70 Complete Blood Count + Differential 0.47 {x10E9/L} See Below [place] [address] Work Phone: Comment on above: Reference Range: 0.1 0 - 1.00 Complete Blood Count + Differential 3.24 {x10E9/L} See Below [place] [address] Work Phone: Comment on above: Reference Range: 1.2 0 - 4.80 Complete Blood Count + Differential 5.26 {x10E9/L} See Below [place] [address] Work Phone: Comment on above: Reference Range: 1.2 0 - 7.70 Percent differential counts (%) should be interpreted in the context of the absolute cell counts (cells/L). Complete Blood Count + Differential 1.8 % 0.0 - 6.0 [place] [address] Work Phone: Complete Blood Count + Differential 0.3 % 0.0 - 0.9 [place] [address] Work Phone: Comment on above: Immature Granulocyte Count (IG) includes promyelocytes, myelocytes and metamyelocytes but does not include bands. Percent differential counts (%) should be interpreted in the context of the absolute cell counts (cells/L). IGG SUBCLASS 4on 02-01-2023 IGG SUBCLASS 4 132 mg/dL Normal 3 - 200 [facility] Comment on above: Performed By: #### I GGG4 #### [facility] [address] [place] [address] Laboratory - Chemistry and C hemistry - challengeon 02-01-2023 Albumin BCP dye [Mass/Vol] 4.3 g/dL 3.4 - 5.0 [place] [address] Work Phone: ALP [Catalytic activity/Vol] 57 U/L 33 - 110 [place] [address] Work Phone: ALT With P-5'-P [Catalytic activity/Vol] 12 U/L 7 - 45 [place] [address] Work Phone: Comment on above: Patients treated wit h Sulfasalazine may generate falsely decreased results for ALT. Anion gap [Moles/Vol] 11 mmol/L 10 - 20 [place] [address] Work Phone: AST With P-5'-P [Catalytic activity/Vol] 13 U/L 9 - 39 [place] [address] Work Phone: Bilirubin [Mass/Vol] 0.6 mg/dL 0.0 - 1.2 -[place] [address] Work Phone: Calcium [Mass/Vol] 9.2 mg/dL 8.6 - 10.3 [place] [address] Work Phone: Chloride [Moles/Vol] 106 mmol/L 98 - 107 -[place] [address] Work Phone: CO2 [Moles/Vol] 26 mmol/L 21 - 32 [place] [address] Work Phone: Creatinine [Mass/Vol] 0.64 mg/dL See Below [place] [address] Work Phone: Comment on above: Reference Range: 0.5 0 - 1.05 Glucose [Mass/Vol] 74 mg/dL 74 - 99 [place] [address] Work Phone: Potassium [Moles/Vol] 3.6 mmol/L 3.5 - 5.3 [place] [address] Work Phone: Protein [Mass/Vol] 6.6 g/dL 6.4 - 8.2 [place] [address] Work Phone: Sodium [Moles/Vol] 139 mmol/L 136 - 145 [place] [address] Work Phone: Urea nitrogen [Mass/Vol] 7 mg/dL 6 - 23 [place] [address] Work Phone: Laboratory - Serology - non- microon 02-01-2023 Gliadin peptide IgA IA Qn (S) 9 U/mL 0 - 14 [place] [address] Work Phone: Comment on above: False negative Deami dated Gliadin Peptide Antibody, IgA results can occur in patients already adhering to a gluten-free diet or patients with IgA deficiency. Tissue Transglutaminase Antibody, IgA is the preferred test for screening patients with suspected Celiac Disease. tTG IgA IA Qn (S) <1 0 - 14 [place] [address] Work Phone: Comment on above: Celiac disease is un likely. False negative Tissue Transglutaminase Antibody, IgA results can occur in approximately 10% of patients with celiac disease, patients already adhering to a gluten-free diet, or patients with IgA deficiency. tTG IgG IA Qn (S) <1 0 - 14 [place] [address] Work Phone: Comment on above: False negative Tissu e Transglutaminase Antibody, IgG results can occur in patients already adhering to a gluten-free diet. Tissue Transglutaminase Antibody, IgA is the preferred test for screening patients with suspected Celiac Disease. No Panel Informationon 02-01 >90 >90 [place] [address] Work Phone: Comment on above: CALCULATIONS OF YANA MATED GFR ARE PERFORMED USING THE 2020 CKD-EPI STUDY REFIT EQUATION WITHOUT THE RACE VARIABLE FOR THE IDMS-TRACEABLE CREATININE METHODS.https://jasn.asnjournals.org/content/early//A SN.5272978122 <1 0 - 14 [place] [address] Work Phone: Comment on above: False negative Deami dated Gliadin Peptide Antibody, IgG results can occur in patients already adhering to a gluten-free diet. Tissue Transglutaminase Antibody, IgA is the preferred test for screening patients with suspected Celiac Disease. 132 mg/dL 3 - 200 [place] [address] Work Phone: TSHon 02-01-2023 TSH Qn 0.60 m[IU]/L Normal 0.44 - 3.98 [facility] Comment on above: Result Comment: TSH testing is performed using different testing methodology at [facility] than at [facility]. Direct result comparisons should only be made within the same method. Performed By: #### T SH2 #### [address] [address] TSH - Thyroid Stimulating Ho rmone, Serumon 02-01-2023 TSH Qn 0.60 m[IU]/L See Below [place] [address] Work Phone: Comment on above: Reference Range: 0.4 4 - 3.98 TSH testing is performed using different testing methodology at [facility] than at [facility]. Direct result comparisons should only be made within the same method. VITAMIN B12on 02-01-2023 Cobalamin (Vitamin B12) [Mass/Vol] 63 pg/mL Low 211 - 911 [facility] Comment on above: Performed By: #### V TB12 #### [address] [address] Vitamin B12, Serumon 023 Cobalamin (Vitamin B12) [Mass/Vol] 63 pg/mL below low threshold 211 - 911 [place] [address] Work Phone: Vitamin-D 1,25-Dihydroxy, Le velon 02-01-2023 1,25-dihydroxyvitamin D3 [Mass/Vol] 64.3 pg/mL 19.9-79.3 [place] [address] Work Phone: Comment on above: INTERPRETIVE INFORMA TION: Vitamin D, 1,25-DihydroxyThis test is primarily indicated during patient evaluation for hypercalcemia and renal failure. A normal result does not rule out Vitamin D deficiency. The recommended test for diagnosing Vitamin D deficiency is Vitamin D 25-hydroxy.Performed By: [employer] [place] [id number] Director: Ector King MD, PhD Cholesterol [Mass/volume] in Serum or PlasmaOrdered By: Jan Carter on 01-09-2023 Cholesterol [Mass/Vol] 128 mg/dL 140-200 [facility] Comment on above: Chol less than 200 m g/dl low riskChol 201-239 mg/dl borderline riskChol 240 mg/dl and greater high risk Cholesterol in LDL Calc [Mas s/Vol]Ordered By: Jan Carter on 01-09-2023 Cholesterol in LDL [Mass/Vol] 88 mg/dL 0-100 [facility] Comment on above: LDL ATP III CLASSIFI CATIONLDL less than 100 mg/dL OptimalLDL 100-129 mg/dL Near or above optimalLDL 130-159 mg/dL Borderline highLDL 160-189 mg/dL HighLDL greater than 189 mg/dL Very high Cholesterol in VLDL Calc [Ma ss/Vol]Ordered By: Jan Carter on 01-09-2023 Cholesterol in VLDL [Mass/Vol] 14 mg/dL [facility] Lipid Panelon 01-09-2023 Cholesterol [Mass/Vol] 128 mg/dL Low 140-200 [facility] Comment on above: Result Comment: Chol less than 200 mg/dl low risk Chol 201-239 mg/dl borderline risk Chol 240 mg/dl and greater high risk Performed By: #### V [id number], TSH3 wRFLX, LIPID #### [facility] [address] [place] [address] [place] Cholesterol in HDL [Mass/Vol] 26 mg/dL Low 35-85 [facility] Comment on above: Result Comment: HDL CHOL ATP-III CLASSIFICATION Cardiovascular Risk HDL > or equal to 60 mg/dL LOW HDL < 40 mg/dL HIGH Performed By: #### V [id number], TSH3 wRFLX, LIPID #### [facility] [address] [place] [address] [facility] Cholesterol.total/Chol esterol in HDL [Mass ratio] 4.9 {ratio} Normal <5.0 [facility] Comment on above: Performed By: #### V [id number], TSH3 wRFLX, LIPID #### [facility] [address] LDL Cholesterol,Calculated 88 mg/dL Normal 0-100 [facility] Comment on above: Result Comment: LDL ATP III CLASSIFICATION LDL less than 100 mg/dL Optimal LDL 100-129 mg/dL Near or above optimal LDL 130-159 mg/dL Borderline high LDL 160-189 mg/dL High LDL greater than 189 mg/dL Very high Performed By: #### V [id number], TSH3 wRFLX, LIPID #### [facility] [address] Triglyceride w/Reflex 72 mg/dL Normal 35-149 [facility] Comment on above: Result Comment: TRIG ATP III CLASSIFICATION TRIG less than 150 mg/dL Normal TRIG 150-199 mg/dL Borderline high TRIG 200-500 mg/dL High TRIG greater than 500 mg/dL Very high Standard traceable to the Center for Disease Conrtrol and Prevention (CDC) test method. Performed By: #### V [id number], TSH3 wRFLX, LIPID #### [facility] [address] VLDL CHOLESTEROL 14 mg/dL Normal [facility] Comment on above: Performed By: #### V [id number], TSH3 wRFLX, LIPID #### [facility] [address] No Panel InformationOrdered By: Jan Carter on 01-09-2023 25-Hydroxy Vitamin D Total 16.8 ng/mL 30-100 [facility] Comment on above: VITAMIN D STATUS 25( [place])VITAMIN D RANGE (ng/mL) Deficient <20 Insufficient 20 to <30Sufficient 30 to 100Reference: Bishnu MF,Jolene DUDLEY, Delphine SERRANO, et al. Evaluation,treatment, and prevention of vitamin D deficiency; an Endocrine Society clinical practice guideline. JCEM. 2010; 96(7):1911-30. Serum or plasma high density lipoprotein (HDL) cholesterol measurementOrdered By: Jan Carter on 01-09-2023 Cholesterol in HDL [Mass/Vol] 26 mg/dL 35-85 [facility] Comment on above: HDL CHOL ATP-III CLA SSIFICATION Cardiovascular RiskHDL > or equal to 60 mg/dL LOWHDL < 40 mg/dL HIGH Serum or plasma total choles terol/high density lipoprotein (HDL) cholesterol mass ratOrdered By: Jan Carter on 01-09-2023 Cholesterol.total/Chol esterol in HDL [Mass ratio] 4.9 {ratio} <5.0 [facility] TSH DL <= 0.005 mIU/L QnOrde red By: Jan Carter on 01-09-2023 TSH Qn 0.52 m[IU]/L 0.45-5.33 [facility] Thyroid Stim Hormone w/Rflxo n 01-09-2023 Thyroid Stim Hormone w/Rflx 0.52 u[iU]/mL Normal 0.45-5.33 [facility] Comment on above: Performed By: #### V [id number], TSH3 wRFLX, LIPID #### [address] Triglyceride [Mass/volume] i n Serum or PlasmaOrdered By: Jan Carter on 01-09-2023 Triglyceride [Mass/Vol] 72 mg/dL 35-149 [facility] Comment on above: TRIG ATP III CLASSIF ICATIONTRIG less than 150 mg/dL NormalTRIG 150-199 mg/dL Borderline highTRIG 200-500 mg/dL High TRIG greater than 500 mg/dL Very highStandard traceable to the Center for Disease Conrtrol and Prevention (CDC) test method. Vitamin D 25 Hydroxy Totalon 01-09-2023 Vitamin D 25 Hydroxy Total 16.8 ng/mL Low 30-100 [facility] Comment on above: Result Comment: KIM MIN D STATUS 25([place])VITAMIN D RANGE (ng/mL) Deficient <20 Insufficient 20 to <30 Sufficient 30 to 100 Reference: Bishnu MF,Jolene NC, Delphine SERRANO, et al. Evaluation,treatment, and prevention of vitamin D deficiency; an Endocrine Society clinical practice guideline. JCEM. 2010; 96(7):1911-30. PERFORMED BY: [place] [address] PATHOLOGIST ORTHOPEDIC NURSE PRACTITIONER UNA CUENCA M.D. Performed By: #### V [id number], TSH3 wRFLX, LIPID #### [facility] [address] [place] [address] [place] Basophils Auto (Bld) [#/Vol] Ordered By: Jan Carter on 01-08-2023 Basophils (Bld) [#/Vol] 0.1 10*3/uL 0.0-0.2 [facility] Basophils/100 WBC Auto (Bld) Ordered By: Jan Carter on 01-08-2023 Basophils/100 WBC (Bld) 0.8 % . [facility] Body fluid albumin measureme nt (mass/volume)Ordered By: Jan Carter on 01-08-2023 Albumin (Body fld) [Mass/Vol] 3.3 g/dL 3.2-5.5 [facility] CHEMISTRYOrdered By: SYSTEM SYSTEM on 01-08-2023 Potassium [Moles/Vol] 3.9 mmol/L Normal 3.5 - 5.3 mmol/L [facility] Remisol Complete Blood Count Auto Di ffon 01-08-2023 Basophils (Bld) [#/Vol] 0.1 10*3/uL Normal 0.0-0.2 [facility] Comment on above: Result Comment: PERF ORMED BY: [place] [address] PATHOLOGIST ORTHOPEDIC NURSE PRACTITIONER UNA CUENCA M.D. Performed By: #### C MP, CBC #### [facility] [address] [place] [address] [place] Basophils/100 WBC (Bld) 0.8 % Normal . [facility] Comment on above: Performed By: #### C MP, CBC #### [facility] [address] [place] [address] [place] Eosinophils (Bld) [#/Vol] 0.2 10*3/uL Normal 0.0-0.45 [facility] Comment on above: Performed By: #### C MP, CBC #### [facility] [address] [place] [address] [place] Eosinophils/100 WBC (Bld) 1.9 % Normal . [facility] Comment on above: Performed By: #### C MP, CBC #### [facility] [address] Erythrocyte distribution width (RBC) [Ratio] 12.4 % Normal 11.9-15.3 [facility] Comment on above: Performed By: #### C MP, CBC #### [facility] [address] Hematocrit (Bld) [Volume fraction] 39.0 % Normal 34.0-46.4 [facility] Comment on above: Performed By: #### C MP, CBC #### [address] Hemoglobin (Bld) [Mass/Vol] 13.1 g/dL Normal 11.8-15.4 [facility] Comment on above: Performed By: #### C MP, CBC #### [address] Lymphocytes (Bld) [#/Vol] 4.0 10*3/uL Normal 1.00-4.8 [facility] Comment on above: Performed By: #### C MP, CBC #### [place] [address] [place] Lymphocytes/100 WBC (Bld) 48.4 % Normal . [facility] Comment on above: Performed By: #### C MP, CBC #### [facility] [address] [place] [address] [place] MCH (RBC) [Entitic mass] 33.1 pg Normal 24.7-34.3 [facility] Comment on above: Performed By: #### C MP, CBC #### [address] MCV (RBC) [Entitic vol] 98.4 fL Normal 80-100 [facility] Comment on above: Performed By: #### C MP, CBC #### [facility] [address] Mean Corpuscular HGB Conc 33.6 g/dL Normal 32.0-35.0 [facility] Comment on above: Performed By: #### C MP, CBC #### [facility] [address] [place] [address] [place] Monocytes (Bld) [#/Vol] 0.4 10*3/uL Normal 0.0-0.8 [facility] Comment on above: Performed By: #### C MP, CBC #### [facility] [address] [place] [address] [place] Monocytes/100 WBC (Bld) 4.5 % Normal . [facility] Comment on above: Performed By: #### C MP, CBC #### [address] Neutrophils (Bld) [#/Vol] 3.7 10*3/uL Normal 1.8-7.7 [facility] Comment on above: Performed By: #### C MP, CBC #### [address] Neutrophils/100 WBC (Bld) 44.4 % Normal . [facility] Comment on above: Performed By: #### C MP, CBC #### [place] [address] [place] NRBC% 0.1 /100{WBC} Normal 0-0.5 [facility] Comment on above: Performed By: #### C MP, CBC #### [facility] [address] [place] [address] [place] Platelet mean volume (Bld) [Entitic vol] 8.3 fL Normal 6.3-10.7 [facility] Comment on above: Performed By: #### C MP, CBC #### [facility] [address] [place] [address] [place] Platelets (Bld) [#/Vol] 249 10*3/uL Normal 150-450 [facility] Comment on above: Performed By: #### C MP, CBC #### [address] [place] [address] [place] RBC (Bld) [#/Vol] 3.96 10*6/uL Normal 3.60-5.00 [facility] Comment on above: Performed By: #### C MP, CBC #### [facility] [address] WBC (Bld) [#/Vol] 8.3 10*3/uL Normal 3.8-11.6 [facility] Comment on above: Performed By: #### C MP, CBC #### [facility] [address] Comprehensive Metabolic Pane sridhar 01-08-2023 Albumin [Mass/Vol] 3.3 g/dL Normal 3.2-5.5 [facility] Comment on above: Performed By: #### C MP, CBC #### [facility] [address] Albumin/Globulin [Mass ratio] 1.5 {ratio} Normal [facility] Comment on above: Performed By: #### C MP, CBC #### [facility] [address] [place] [address] ALP [Catalytic activity/Vol] 50 U/L Normal 32-92 [facility] Comment on above: Performed By: #### C MP, CBC #### [facility] [address] [place] [address] ALT [Catalytic activity/Vol] 15 U/L Normal 10-60 [facility] Comment on above: Performed By: #### C MP, CBC #### [facility] [address] Anion gap [Moles/Vol] 10.7 mmol/L Normal 6.0-15.0 [facility] Comment on above: Performed By: #### C MP, CBC #### [facility] [address] AST [Catalytic activity/Vol] 14 U/L Normal 10-42 [facility] Comment on above: Performed By: #### C MP, CBC #### [facility] [address] Bilirubin [Mass/Vol] 0.7 mg/dL Normal 0.3-1.2 [facility] Comment on above: Performed By: #### C MP, CBC #### [facility] [address] Calcium [Mass/Vol] 9.1 mg/dL Normal 8.2-10.2 [facility] Comment on above: Performed By: #### C MP, CBC #### [facility] [address] Chloride [Moles/Vol] 110 mmol/L Normal 95-114 [facility] Comment on above: Performed By: #### C MP, CBC #### [address] CO2 [Moles/Vol] 22.4 mmol/L Normal 22.0-30.0 [facility] Comment on above: Performed By: #### C MP, CBC #### [address] Creatinine [Mass/Vol] 0.55 mg/dL Normal 0.44-1.03 [facility] Comment on above: Performed By: #### C MP, CBC #### [place] [address] [place] Creatinine Clr Calc Pharmacy 125.63 [facility] Comment on above: Result Comment: PERF ORMED BY: [place] [address] PATHOLOGIST ORTHOPEDIC NURSE PRACTITIONER UNA CUENCA M.D. Performed By: #### C MP, CBC #### [address] Estimated GFR ( Rachna > 60 Normal [facility] Comment on above: Result Comment: GFR estimated reference range: According to KDOQI guidelines, <60 ml/min/1.73m2 is sufficient to diagnose a patient with chronic kidney disease. Performed By: #### C MP, CBC #### [place] [address] [place] Estimated GFR (Non- Am > 60 Normal [facility] Comment on above: Performed By: #### C MP, CBC #### [facility] [address] [place] [address] [place] Globulin (S) [Mass/Vol] 2.2 g/dL Normal [facility] Comment on above: Performed By: #### C MP, CBC #### [facility] [address] [place] [address] [place] Glucose [Mass/Vol] 91 mg/dL Normal 70-100 [facility] Comment on above: Result Comment: [facility] Glucose Reference Range is dependent on time and content of last meal. Glucose of more than 200 mg/dL in a nonstressed, ambulatory subject supports the diagnosis of Diabetes Mellitus. ADA recommended reference range Performed By: #### C MP, CBC #### [facility] [address] Potassium [Moles/Vol] 4.1 mmol/L Normal 3.5-5.1 [facility] Comment on above: Performed By: #### C MP, CBC #### [facility] [address] [place] [address] [place] Protein [Mass/Vol] 5.5 g/dL Low 6.1-7.9 [facility] Comment on above: Performed By: #### C MP, CBC #### [facility] [address] [place] [id number] [place] Sodium [Moles/Vol] 139 mmol/L Normal 136-146 [facility] Comment on above: Performed By: #### C MP, CBC #### [facility] [address] [place] [id number] [place] Urea nitrogen [Mass/Vol] 3 mg/dL Low 9-23 [facility] Comment on above: Performed By: #### C MP, CBC #### [facility] [address] [place] [address] [place] Creatinine and Glomerular fi ltration rate.predicted panel (S/P/Bld)Ordered By: Jan Carter on 01-08-2023 Creatinine [Mass/Vol] 0.55 mg/dL 0.44-1.03 [facility] Eosinophils Auto (Bld) [#/Vo l]Ordered By: Jna Carter on 01-08-2023 Eosinophils (Bld) [#/Vol] 0.2 10*3/uL 0.0-0.45 [facility] Eosinophils/100 WBC Auto (Bl d)Ordered By: Jan Carter on 01-08-2023 Eosinophils/100 WBC (Bld) 1.9 % . [facility] Erythrocyte distribution wid th Auto (RBC) [Ratio]Ordered By: Jan Carter on 01-08-2023 Erythrocyte distribution width (RBC) [Ratio] 12.4 % 11.9-15.3 [facility] Estimated glomerular filtrat ion rate (GFR) non- AmericanOrdered By: Jan Carter on 01-08-2023 GFR/1.73 sq M.predicted among non-blacks MDRD (S/P/Bld) [Vol rate/Area] > 60 mL/Min [facility] Globulin Calc (S) [Mass/Vol] Ordered By: Jan Carter on 01-08-2023 Globulin (S) [Mass/Vol] 2.2 g/dL [facility] Hematocrit Auto (Bld) [Volum e fraction]Ordered By: Jan Carter on 01-08-2023 Hematocrit (Bld) [Volume fraction] 39.0 % 34.0-46.4 [facility] Hemoglobin [Mass/volume] in BloodOrdered By: Jan Carter on 01-08-2023 Hemoglobin (Bld) [Mass/Vol] 13.1 g/dL 11.8-15.4 [facility] Leukocytes [#/volume] correc marissa for nucleated erythrocytes in Blood by Automated counOrdered By: Jan Carter on 01-08-2023 WBC corrected for nucl RBC Auto (Bld) [#/Vol] 8.3 10*3/uL 3.8-11.6 [facility] Lymphocytes Auto (Bld) [#/Vo l]Ordered By: Jan Carter on 01-08-2023 Lymphocytes (Bld) [#/Vol] 4.0 10*3/uL 1.00-4.8 [facility] Lymphocytes/100 WBC Auto (Bl d)Ordered By: Jan Carter on 01-08-2023 Lymphocytes/100 WBC (Bld) 48.4 % . [facility] MCH Auto (RBC) [Entitic mass ]Ordered By: Jan Carter on 01-08-2023 MCH (RBC) [Entitic mass] 33.1 pg 24.7-34.3 [facility] MCHC Auto (RBC) [Mass/Vol]Or dered By: Jan Carter on 01-08-2023 MCHC (RBC) [Mass/Vol] 33.6 g/dL 32.0-35.0 [facility] MCV Auto (RBC) [Entitic vol] Ordered By: Jan Carter on 01-08-2023 MCV (RBC) [Entitic vol] 98.4 fL 80-100 [facility] Monocytes Auto (Bld) [#/Vol] Ordered By: Jan Carter on 01-08-2023 Monocytes (Bld) [#/Vol] 0.4 10*3/uL 0.0-0.8 [facility] Monocytes/100 WBC Auto (Bld) Ordered By: Jan Carter on 01-08-2023 Monocytes/100 WBC (Bld) 4.5 % . [facility] Neutrophils Auto (Bld) [#/Vo l]Ordered By: Jan Carter on 01-08-2023 Neutrophils (Bld) [#/Vol] 3.7 10*3/uL 1.8-7.7 [facility] Neutrophils/100 WBC Auto (Bl d)Ordered By: Jan Carter on 01-08-2023 Neutrophils/100 WBC (Bld) 44.4 % . [facility] No Panel InformationOrdered By: Jan Carter on 01-08-2023 Estimated GFR () > 60 mL/Min [facility] Comment on above: GFR estimated refere nce range: According to KDOQI guidelines, <60 ml/min/1.73m2 is sufficient to diagnose a patient with chronic kidney disease. Pharmacy Creatinine Clearance (Chem 125.63 [facility] Nucleated erythrocytes [Pres ence] in Blood by Automated countOrdered By: Jan Carter on 01-08-2023 Nucleated RBC Auto Ql (Bld) 0.1 /100{WBC} 0-0.5 [facility] Platelet mean volume Auto (B ld) [Entitic vol]Ordered By: Jan Carter on 01-08-2023 Platelet mean volume (Bld) [Entitic vol] 8.3 fL 6.3-10.7 [facility] Platelets Auto (Bld) [#/Vol] Ordered By: Jan Carter on 01-08-2023 Platelets (Bld) [#/Vol] 249 10*3/uL 150-450 [facility] Protein [Mass/volume] in Ser um or PlasmaOrdered By: Jan Carter on 01-08-2023 Protein [Mass/Vol] 5.5 g/dL 6.1-7.9 [facility] RBC Auto (Bld) [#/Vol]Ordere d By: Jan Carter on 01-08-2023 RBC (Bld) [#/Vol] 3.96 10*6/uL 3.60-5.00 [facility] Serum or plasma alanine dougherty otransferase measurement without P-5'-P (enzymatic activiOrdered By: Jan Carter on 01-08-2023 ALT No additional P-5'-P [Catalytic activity/Vol] 15 U/L 10-60 [facility] Serum or plasma albumin/glob ulin mass ratioOrdered By: Jan Carter on 01-08-2023 Albumin/Globulin [Mass ratio] 1.5 {ratio} [facility] Serum or plasma alkaline rigo sphatase measurement (enzymatic activity/volume)Ordered By: Jan Carter on 02-14-2023 ALP [Catalytic activity/Vol] 50 U/L 32-92 [facility] Serum or plasma anion gap de terminationOrdered By: Jan Carter on 01-08-2023 Anion gap [Moles/Vol] 10.7 mmol/L 6.0-15.0 [facility] Serum or plasma aspartate am inotransferase measurement (enzymatic activity/volume)Ordered By: Jan Carter on 01-08-2023 AST [Catalytic activity/Vol] 14 U/L 10-42 [facility] Serum or plasma calcium lashonda urement (mass/volume)Ordered By: Jan Carter on 01-08-2023 Calcium [Mass/Vol] 9.1 mg/dL 8.2-10.2 [facility] Serum or plasma chloride jarad surement (moles/volume)Ordered By: Jan Carter on 01-08-2023 Chloride [Moles/Vol] 110 mmol/L 95-114 [facility] Serum or plasma glucose lashonda urement (mass/volume)Ordered By: Jan Carter on 01-08-2023 Glucose [Mass/Vol] 91 mg/dL 70-100 [facility] Comment on above: ADA recommended refe rence rangeRandom Glucose Reference Range is dependent on time and content of last meal. Glucose of more than 200 mg/dL in a nonstressed, ambulatory subject supports the diagnosis of Diabetes Mellitus. Serum or plasma potassium me asurement (moles/volume)Ordered By: Jan Carter on 01-08-2023 Potassium [Moles/Vol] 4.1 mmol/L 3.5-5.1 [facility] Serum or plasma sodium measu rement (moles/volume)Ordered By: Jan Carter on 01-08-2023 Sodium [Moles/Vol] 139 mmol/L 136-146 [facility] Serum or plasma total biliru bin measurement (mass/volume)Ordered By: Jan Carter on 01-08-2023 Bilirubin [Mass/Vol] 0.7 mg/dL 0.3-1.2 [facility] Serum or plasma total carbon dioxide measurement (moles/volume)Ordered By: Jan Carter on 01-08-2023 CO2 [Moles/Vol] 22.4 mmol/L 22.0-30.0 [facility] Serum or plasma urea nitroge n measurement (mass/volume)Ordered By: Jan Carter on 01-08-2023 Urea nitrogen [Mass/Vol] 3 mg/dL 9- [facility] WBC Auto (Bld) [#/Vol]Ordere d By: Jan Carter on 01-08-2023 WBC (Bld) [#/Vol] 8.3 10*3/uL 3.8-11.6 [facility] CHEMISTRYOrdered By: SYSTEM SYSTEM on 01-07-2023 Acetaminophen [Mass/Vol] microgram/mL Low 15 - 30 mcg/mL [facility] Albumin [Mass/Vol] 3.8 g/dL Normal 3.3 - 5.0 gm/dL [facility] Albumin/Globulin [Mass ratio] 1.4 {ratio} Normal 1.1 - 2.2 [facility] ALP [Catalytic activity/Vol] 56 [iU]/d Normal 21 - 98 Int._Unit/ L [facility] ALT No additional P-5'-P [Catalytic activity/Vol] 14 [iU]/d Normal 6 - 46 Int._Unit/ L [facility] Anion gap [Moles/Vol] 14 mmol/L Normal 6 - 16 mEq/L [facility] AST [Catalytic activity/Vol] 13 [iU]/d Normal 5 - 43 Int._Unit/ L [facility] Bilirubin [Mass/Vol] 0.6 mg/dL Normal 0.0 - 1 .1 mg/dL [facility] Calcium [Mass/Vol] 8.8 mg/dL Low 8.9 - 11. 1 mg/dL [facility] Chloride [Moles/Vol] 108 mmol/L Normal 101 - 1 11 mmol/L [facility] CO2 [Moles/Vol] 19 mmol/L Low 21 - 31 mmol/L [facility] Creatinine [Mass/Vol] 0.5 mg/dL Normal 0.5 - 1.3 mg/dL [facility] Ethanol [Mass/Vol] mg/dL Normal <=7mg/dL [facility] GFR/1.73 sq M.predicted among blacks MDRD (S/P/Bld) [Vol rate/Area] mL/min/1.73 m2 Normal >=59mL/min /1.73 m2 [facility] Chem S GFR/1.73 sq M.predicted among non-blacks MDRD (S/P/Bld) [Vol rate/Area] mL/min/1.73 m2 Normal >=59mL/min /1.73 m2 [facility] S Globulin (S) [Mass/Vol] 2.7 g/dL Normal 1.4 - 4.0 gm/dL [facility] Glucose [Mass/Vol] 127 mg/dL Normal 55 - 199 mg/dL [facility] Potassium [Moles/Vol] 3.1 mmol/L Low 3.5 - 5.3 mmol/L [facility] Protein [Mass/Vol] 6.5 g/dL Normal 6.0 - 7.8 gm/dL [facility] Salicylates [Mass/Vol] mg/dL Low 6 - 2 9 mg/dL [facility] Sodium [Moles/Vol] 138 mmol/L Normal 135 - 145 mmol/L [facility] Urea nitrogen [Mass/Vol] mg/dL Normal 5 - 21 mg/dL [facility] Urea nitrogen/Creatinine [Mass ratio] Unable to Calculate Invalid Interpretation Code 10 - 20 [facility] Amphetamines Screen method >1000 ng/mL Ql (U) Negative (01/07/23 4:04 PM) Normal Negative [facility] Barbiturates Screen Ql (U) Negative (01/07/23 4:04 PM) Normal Negative [facility] Benzodiazepines Ql (U) Negative (01/07/23 4:04 PM) Normal Negative [facility] Cocaine Ql (U) Negative (01/07/23 4:04 PM) Normal Negative [facility] Opiates Screen Ql (U) Negative (01/07/23 4:04 PM) Normal Negative [facility] Phencyclidine Screen method >25 ng/mL Ql (U) Negative (01/07/23 4:04 PM) Normal Negative [facility] Tetrahydrocannabinol Screen method >50 ng/mL Ql (U) Positive 1 *ABN* (01/07/23 4:04 PM) Invalid Interpretation Code Negative [facility] Comment on above: Result Comment: Unco nfirmed by alternate method\No confirmation requested by Physican\Results verified by repeat analysis\Critical Result UD_THC:POS Called to ZANDER PICKETT AT by ANA KIMBLE And Read Back For Confirmation at: 01/07/2023 16:59:15 HEMATOLOGYOrdered By: SYSTEM SYSTEM on 01-07-2023 Basophils/100 WBC (Bld) 0.5 % Normal 0.0 - 2.0 % [facility] Basophils/Leukocytes Auto (Bld) [Pure # fraction] 0.1 E9/L Normal 0.0 - 0.2 E9/L [facility] Eosinophils/100 WBC (Bld) 0.3 % Normal 0.0 - 8.0 % [facility] Eosinophils/Leukocytes Auto (Bld) [Pure # fraction] 0.0 E9/L Normal 0.0 - 0.5 E9/L [facility] Lymphocytes/100 WBC (Bld) 18.1 % Normal 14.0 - 50.0 % [facility] Lymphocytes/Leukocytes Auto (Bld) [Pure # fraction] 2.5 E9/L Normal 1.0 - 4.0 E9/L [facility] Monocytes/100 WBC (Bld) 3.4 % Low 4.0 - 14.0 % [facility] Monocytes/Leukocytes Auto (Bld) [Pure # fraction] 0.5 E9/L Normal 0.2 - 1.0 E9/L [facility] Neutrophils/100 WBC (Bld) 77.7 % High 36.0 - 75.0 % [facility] Neutrophils/Leukocytes Auto (Bld) [Pure # fraction] 10.9 E9/L High 2.0 - 7.5 E9/L [facility] HEMATOLOGYOrdered By: Frederic Arizmendi on 01-07-2023 Erythrocyte distribution width (RBC) [Ratio] 12.1 % Normal 10.9 - 14.2 % [facility] Hematocrit (Bld) [Volume fraction] 42.0 % Normal 34.0 - 46.0 % [facility] Hemoglobin (Bld) [Mass/Vol] 13.9 g/dL Normal 12.0 - 16.0 gm/dL [facility] MCH (RBC) [Entitic mass] 32.7 pg Normal 27.0 - 34.0 pg [facility] MCHC (RBC) [Mass/Vol] 33.1 g/dL Normal 31.4 - 36.0 gm/dL [facility] MCV (RBC) [Entitic vol] 98.8 fL Normal 80.0 - 100.0 fL [facility] Platelet mean volume (Bld) [Entitic vol] 8.1 fL Normal 6.4 - 10.8 fL [facility] Platelets (Bld) [#/Vol] 263.0 E9/L Normal 150.0 - 500.0 E9/L [facility] RBC (Bld) [#/Vol] 4.3 E12/L Normal 4.3 - 5.9 E12/L [facility] WBC corrected for nucl RBC Auto (Bld) [#/Vol] 14.0 E9/L High 4.0 - 11.0 E9/L [facility] MICRO OTHER TESTSOrdered By: Mamta Hurd on 01-07-2023 Rapid COV Int NEG Ctl Pass (01/07/23 11:44 PM) Normal [facility] Rapid COV Int POS Ctl Pass (01/07/23 11:44 PM) Normal [facility] SARS-CoV+SARS-CoV-2 (COVID-19) Ag IA.rapid Ql (Resp) Not Detected (01/07/23 11:44 PM) Normal Not Detected [facility] SEROLOGYOrdered By: Rimma Erickson on 01-07-2023 Beta hCG Ql Negative (01/07/23 4:13 PM) Normal [facility] Initial Visit (Gastroenterol ogy)on 01-03-2023 Initial Visit (Gastroenterology) Diagnoses/Problems Assessed Chronic pancreatitis (577.1) (K86.1) Orders Chronic pancreatitis Start: Creon [id number] UNIT Oral Capsule Delayed Release Particles; TAKE 1 CAPSULE 3 times daily Rx By: Jing Troncoso; Dispense: 0 Days ; #:48 Capsule; Refill: 0;For: Chronic pancreatitis; CHEIKH = N; Dispense Sample CELIAC DISEASE SEROLOGY PANEL; Status:Active; Requested for:03Jan2023; Perform:Lab Services - Lab To Draw (Blood Test); Due:03Apr2023;Ordered; For:Chronic pancreatitis; Ordered By:Jing Troncoso; Complete Blood Count + Differential; Status:Active; Requested for:03Jan2023; Perform:Lab Services - Lab To Draw (Blood Test); Due:03Apr2023;Ordered; For:Chronic pancreatitis; Ordered By:Jing Troncoso; Comprehensive Metabolic Panel; Status:Active; Requested for:03Jan2023; Perform:Lab Services - Lab To Draw (Blood Test); Due:03Apr2023;Ordered; For:Chronic pancreatitis; Ordered By:Jing Troncoso; IgG Subclass 4; Status:Active; Requested for:03Jan2023; Perform:Lab Services - Lab To Draw (Blood Test); Due:03Apr2023;Ordered; For:Chronic pancreatitis; Ordered By:Jing Troncoso; TSH - Thyroid Stimulating Hormone, Serum; Status:Active; Requested for:03Jan2023; Perform:Lab Services - Lab To Draw (Blood Test); Due:03Apr2023;Ordered; For:Chronic pancreatitis; Ordered By:Jing Troncoso; Vitamin B12, Serum; Status:Active; Requested for:03Jan2023; Perform:Lab Services - Lab To Draw (Blood Test); Due:03Apr2023;Ordered; For:Chronic pancreatitis; Ordered By:Jing Troncoso; Vitamin-D 1,25-Dihydroxy, Level; Status:Active; Requested for:03Jan2023; Perform:Lab Services - Lab To Draw (Blood Test); Due:03Apr2023;Ordered; For:Chronic pancreatitis; Ordered By:Jing Troncoso; SocHx: Smokes cigarettes Tobacco Use Screening; Status:Complete; Done: 03Jan2023 Perform:Not Applicable;Ordered; For:SocHx: Smokes cigarettes; Ordered By:Chana Rios; Provider Impressions We will check CT abdomen and pelvis. Follow-up with family doctor regarding lung nodules noted at [facility]. Discussed smoking cessation, not inclined to begin at this time. Patient not currently involved in AA is to begin new program as she is recently moved to [place]. Check routine labs begin Creon 36,000 units 1 4 times daily with meals follow-up in [address] scan. Chief Complaint NPV in office today for chronic pancreatitis with calcification. RUQ pain patient describes pain like a galbladder attack, diarrhea occasional bright right blood in toilet. Patient states most of the time she has black tarry stools. Patient states when flushing her stool sticks to the toilet bowl. History of Present [id number] female with longstanding history of alcohol abuse quit drinking 7 months ago last drink was July 09, 2022. Hospitalized that time at [facility] for acute alcoholic intoxication. History of prior hospitalizations and evaluation for pancreatitis. CT scan at that time showed calcifications along the pancreas with fatty liver no evidence of cirrhosis per patient unable to pull up imaging on [facility]. She presents today to establish care. She admits to having 4-6 loose stools daily no nocturnal bowel movements. Stools are unformed float on top of the toilet are oily. Worse if she eats dense meats such as beef or steak. Denies any rectal bleeding. Has lost approximately 70 pounds since she quit drinking. Denies any polydipsia or polyphagia. States she feels nauseous most of the time uses medical marijuana to control nausea does see medical marijuana And uses dispensary and mother for medications. Family history father of complications from liver issues related to his chronic sarcoidosis. She lost a brother to sudden cardiac at age 36. Alcoholism does run in her family. Review of Systems Constitutional: no fever, no chills, not feeling tired and no recent weight loss. ENT: no lymphadenopathy. Cardiovascular: no shortness of breath and no chest pain. Respiratory: no cough. Gastrointestinal: as noted in HPI. Musculoskeletal: no joint swelling. Integumentary: no rashes, no skin lesions and was no jaundiced. All other systems have been reviewed and are negative for complaint. Surgical History Problems History of section History of Cholecystectomy History of Tonsillectomy with adenoidectomy Family History Mother Family history of chronic obstructive pulmonary disease (V17.6) (Z82.5) Family history of epilepsy (V17.2) (Z82.0) Brother Family history of Sudden cardiac arrest Social History Problems Daily caffeine consumption Does not have living will Medical marijuana daily No alcohol use Smokes cigarettes (305.1) (F17.210) Allergies Medication No Known Drug Allergies Recorded By: Chana Rios; 01/03/2023 2:52:04 PM Current Meds Medication NameInstruction No Reported Medications Vitals Vital Signs Recorded: 03Jan2023 02:50PM Heart Rate92 [id number] Diasto (more content not included)... Normal [employer] XR CHEST (2 VW)on 12-29-2022 Nonacute two-view chest. [facility] EXAM: XR CHEST (2 VW ) HISTORY: Reason for exam:->cough COMPARISON: Two-view chest from 12/21/2016. TECHNIQUE: Frontal and lateral films were done of the chest. FINDINGS: Trachea, mediastinum and heart size are unremarkable. The lungs are clear and well aerated. No infiltrate or nodule or effusion or pneumothorax is noted. Diaphragm and bony elements are intact. [facility] Jude Tony, - 12/29/2022 EXAM: XR CHEST (2 VW) HISTORY: Reason for exam:->cough COMPARISON: Two-view chest from 12/21/2016. TECHNIQUE: Frontal and lateral films were done of the chest. FINDINGS: Trachea, mediastinum and heart size are unremarkable. The lungs are clear and well aerated. No infiltrate or nodule or effusion or pneumothorax is noted. Diaphragm and bony elements are intact. IMPRESSION: Nonacute two-view chest. [employer] Phone: Radiology Study observation (narrative) [employer] Phone: XR CHEST (2 VW)Ordered By: Anabella Tony on 12-29-2022 [employer] Phone: Progress Noteson 11-24-2022 [employer] Authentication Interface Message Text EMERGENCY TRIAGE, TREAT AND TRANSPORT (ET3) DOCUMENTATION OF TELEHEALTH VISIT Date / Time: 10/31/2022 / 1315 Name: Shirin Burgos : 1990 SSN: [id number] EMS Agency: [facility] [x] Verbal consent obtained [] Implied consent - patient with potential emergency medical condition requiring assessment of capacity to refuse treatment and/or transport VITAL SIGNS: see flowsheet documentation Reason for Telehealth Visit: Chief Complaint Patient presents with Abdominal pain History of Present Ilness: 32 yo female w/ PMH of pancreatitis called EMS for abdominal pain Started today. Similar to pancreatitis. 05/04 does not radiate Reports occassional bloody stools. Pt now declining transport and would like to go by private vehicle to [facility]. Additional pertinent PMHx, SocHx, FamHx: PMH chr pancreatitis Review of Systems: Denies the following: fever, chills, CP Exam: General: Awake, no distress ENT: normocephalic, atraumatic Pulmonary: No respiratory distress Cardiovascular: Well perfused Neurologic: Oriented to person, place, time and events. Moving all extremities equally. Psychiatric: Appropriate. Good insight and judgement. Medical Decision Makin yo female w/ PMH of chr pancreatitis called EMS for abd pain and blood stools now declining EMS transport w/ preference to go by private vehicle. Pt is non toxic appearing w/ stable VS. Pt has medical decision making capacity and is appropriate to go by private vehicle. Disposition Supported by Telehealth Assessment: ET3 transport decisions: Refused transport EMS Disposition Reported: Same ET3 Encounter Completed by: Moncho Corbin, DO Normal [facility] [employer] [facility] AMYLASEon 07-16-2022 Amylase [Catalytic activity/Vol] 124 U/L Critically high 25-115 [facility] Comment on above: Performed By: #### C MP, LAURYN, LIPA #### [facility] [address] [place] [address] Dr. Nick Perez CBC AUTO DIFFon 07-16-2022 BASO # 0.0 103/ul Normal 0.0-0.1 [facility] Comment on above: Performed By: #### C BC #### [facility] [address] [address] [address] Nick Perez Basophils/100 WBC (Bld) 0.3 % Normal 0.2-2.0 [facility] Comment on above: Performed By: #### C BC #### [facility] [address] [place] [address] Dr. Nick Perez EO # 0.1 103/ul Normal 0.0-0.7 [facility] Comment on above: Performed By: #### C BC #### [facility] [address] [place] [address] Dr. Nick Perez Eosinophils/100 WBC (Bld) 0.7 % Critically low 0.9-7.0 [facility] Comment on above: Performed By: #### C BC #### [facility] [address] [place] [address] Dr. Nick Perez Erythrocyte distribution width (RBC) [Ratio] 12.9 % Normal 11.0-15.0 [facility] Comment on above: Performed By: #### C BC #### [facility] [address] [place] [address] Dr. Nick Perez Hematocrit (Bld) [Volume fraction] 45.7 % Normal 36.0-48.0 [facility] Comment on above: Performed By: #### C BC #### [facility] [address] [place] [address] Dr. Nick Perez Hemoglobin (Bld) [Mass/Vol] 15.9 g/dL Normal 12.0-16.0 [facility] Comment on above: Performed By: #### C BC #### [facility] [address] [place] [address] Dr. Nick Perez IG # 0.04 10e3/ul Critically high 0.00-0.03 [facility] Comment on above: Performed By: #### C BC #### [facility] [address] [place] [address] Dr. Nick Perez IG % 0.3 % Normal 0.0-0.5 [facility] Comment on above: Performed By: #### C BC #### [facility] [address] [place] [address] Dr. Nick Perez LYMPH # 3.5 103/ul Normal 1.2-3.8 [facility] Comment on above: Performed By: #### C BC #### [facility] [address] [place] [address] Dr. Nick Perez Lymphocytes/100 WBC (Bld) 25.5 % Normal 20.5-60.0 [facility] Comment on above: Performed By: #### C BC #### [facility] [address] [place] [address] Dr. Nick Perez MANUAL DIFF REQ NO Normal [facility] Comment on above: Performed By: #### C BC #### [facility] [address] [place] [address] Dr. Nick Perez MCH (RBC) [Entitic mass] 34.8 pg Critically high 26.7-34.0 [facility] Comment on above: Performed By: #### C BC #### [facility] [address] [place] [address] Dr. Nick Perez MCHC (RBC) [Mass/Vol] 34.8 g/dL Normal 29.9-35.2 [facility] Comment on above: Performed By: #### C BC #### [facility] [address] [place] [address] Dr. Nick Perez MCV (RBC) [Entitic vol] 100.0 fL Critically high 81.0-99.0 [facility] Comment on above: Performed By: #### C BC #### [facility] [address] [place] [address] Dr. Nick Perez MONO # 0.7 103/ul Normal 0.3-0.8 [facility] Comment on above: Performed By: #### C BC #### [facility] [address] [place] [address] Dr. Nick Perez Monocytes/100 WBC (Bld) 5.0 % Normal 1.7-12.0 [facility] Comment on above: Performed By: #### C BC #### [facility] [address] [place] [address] Dr. Nick Perez NEUT # 9.4 103/ul Critically high 1.4-6.5 [facility] Comment on above: Performed By: #### C BC #### [facility] [address] [place] [address] Dr. Nick Perez Neutrophils/100 WBC (Bld) 68.2 % Normal 43.0-75.0 [facility] Comment on above: Performed By: #### C BC #### [facility] [address] [place], [place] [address] Dr. Nick Perez Platelet mean volume (Bld) [Entitic vol] 9.4 fL Critically low 9.5-13.5 [facility] Comment on above: Performed By: #### C BC #### [facility] [address] [place], [place] [address] Dr. Nick Perez PLT 260 103/ul Normal 150-450 [facility] Comment on above: Performed By: #### C BC #### [facility] [address] [address] [address] Nick Perez RBC 4.57 106/ul Normal 4.20-5.40 [facility] Comment on above: Performed By: #### C BC #### [facility] [address] [address] [address] Nick Perez WBC 13.8 103/ul Critically high 4.0-11.0 [facility] Comment on above: Performed By: #### C BC #### [facility] [address] [place] [address] ABD/PELV W CONon 07-16-20 CT ABD/PELV W CON EXAMINATION: CT ABD/ PELV W CON HISTORY: GENERALIZED ABDOMINAL PAIN nausea vomiting right lower quadrant pain. COMPARISON: CT abdomen pelvis on 04/13/2022 TECHNIQUE: Multiple axial views CT abdomen pelvis after administration of 50 mL Omnipaque 350 IV contrast. Coronal and sagittal reformats. Dose reduction techniques were achieved by using automated exposure control and/or adjustment of mA and/or kV according to patient size and/or use of iterative reconstruction technique. FINDINGS: Visualized lung bases and cardiac apex are unremarkable. Status post cholecystectomy. Liver, pancreas, spleen, adrenal glands, kidneys, urinary bladder, and other pelvic structures are unremarkable. Uterus is surgically absent. Appendix measures 5 mm diameter within normal reference range. No wall thickening or surrounding inflammatory stranding/free fluid. No evidence for small bowel obstruction, large ascites, or free air. Mild amount of liquid stool within the large bowel. Interval decrease size of the bilateral pelvic lymph nodes, previously measuring up to 10 mm thick at the left inguinal region, currently 8 mm. No acute bony abnormality. Bilateral L5 pars defects. Left L3 pars defect. Grade 1 anterolisthesis of L5 on S1. IMPRESSION: No CT evidence for acute appendicitis. Appendix is nondilated and is without surrounding inflammatory stranding/free fluid. Mild amount of liquid stool within the large bowel. Correlate clinically for any underlying enteritis/diarrhea. Interval decrease size of the bilateral pelvic lymph nodes. Electronically authenticated by: DIANA HERNANDEZ Date: 2022-07-16 02:51 Normal [facility] ER URINE PROFILEon 2 Bilirubin Ql (U) Negative Normal NEGATIVE [facility] Comment on above: Performed By: #### E RUR #### [facility] [address] [place] [address] Dr. Nick Perez Clarity (U) CLEAR Normal CLEAR [facility] Comment on above: Performed By: #### E RUR #### [facility] [address] [place] [address] Dr. Nick Perez Color (U) LT. YELLOW Normal YELLOW [facility] Comment on above: Performed By: #### E RUR #### [facility] [address] [place] [address] Dr. Nick Perez ERUAHJanie A micrscopic examina tion will be performed if indicated. Normal [facility] Comment on above: Performed By: #### E RUR #### [facility] [address] [place] [address] Dr. Nick Perez Glucose Ql (U) Negative Normal NEGATIVE [facility] Comment on above: Performed By: #### E RUR #### [facility] [address] [place] [address] Dr. Nick Perez Hemoglobin Ql (U) Negative Normal NEGATIVE [facility] Comment on above: Performed By: #### E RUR #### [facility] [address] [place] [address] Dr. Nick Perez Ketones Ql (U) Negative Normal NEGATIVE [facility] Comment on above: Performed By: #### E RUR #### [facility] [address] [place] [address] Dr. Nick Perez LEUKOCYTES Negative Normal NEGATIVE [facility] Comment on above: Performed By: #### E RUR #### [facility] [address] [place] [address] Dr. Nick Perez Nitrite Ql (U) Negative Normal NEGATIVE [facility] Comment on above: Performed By: #### E RUR #### [facility] [address] [place] [address] Dr. Nick Perez pH (U) 6.0 [pH] Normal 5-9 [facility] Comment on above: Performed By: #### E RUR #### [facility] [address] [place] [address] Dr. Nick Perez SPEC GRAVITY <=1.005 Abnormal 1.005-<=1. 025 [facility] Comment on above: Performed By: #### E RUR #### [facility] [address] [place] [address] Dr. Nick Perez UA PROTEIN Negative Normal NEGATIVE/ TRACE [facility] Comment on above: Performed By: #### E RUR #### [facility] [address] [place] [address] Dr. Nick Perez UR MICRO IND NOT INDICATED Normal [facility] Comment on above: Performed By: #### E RUR #### [facility] [address] [place] [address] Dr. Nick Perez Urobilinogen Qn (U) 0.2 {Ta'U}/dL Normal 0.2 - 1. 0 [facility] Comment on above: Performed By: #### E RUR #### [facility] [address] [place] [address] Dr. Nick Perez LIPASEon 07-16-2022 Lipase [Catalytic activity/Vol] 99.0 U/L Normal 73.0-393.0 [facility] Comment on above: Performed By: #### C MP, LAURYN, LIPA #### [facility] [address] [place] [address] Dr. Nick Perez URon 07-16-2022 , QUAL Negative Normal NEGATIVE [facility] Comment on above: Performed By: #### E RUR #### [facility] [address] [address] [address] Nick Perez PROF 14(COMP METB)on 022 Albumin [Mass/Vol] 3.9 g/dL Normal 3.4-5.0 [facility] Comment on above: Performed By: #### C MP, LAURYN, LIPA #### [facility] [address] [address] [address] Nick Perez Albumin/Globulin [Mass ratio] 1.3 {ratio} Normal [facility] Comment on above: Performed By: #### C MP, LAURYN, LIPA #### [facility] [address] [address] [address] Nick Perez ALP [Catalytic activity/Vol] 76 U/L Normal 46-116 [facility] Comment on above: Performed By: #### C MP, LAURYN, LIPA #### [facility] [address] [place] [address] Dr. Nick Perez ALT [Catalytic activity/Vol] 24 U/L Normal 14-59 [facility] Comment on above: Performed By: #### C MP, LAURYN, LIPA #### [facility] [address] [address] [address] Nick Perez Anion gap [Moles/Vol] 12.8 mmol/L Normal [facility] Comment on above: Performed By: #### C MP, LAURYN, LIPA #### [facility] [address] [place] [address] Dr. Nick Perez AST [Catalytic activity/Vol] 19 U/L Normal 15-37 [facility] Comment on above: Performed By: #### C MP, LAURYN, LIPA #### [facility] [address] [address] [address] Nick Perez Bilirubin [Mass/Vol] 1.6 mg/dL Critically high 0.2-1.0 [facility] Comment on above: Performed By: #### C MP, LAURYN, LIPA #### [facility] [address] [address] [address] Nick Perez Calcium [Mass/Vol] 9.4 mg/dL Normal 8.5-10.1 [facility] Comment on above: Performed By: #### C MP, LAURYN, LIPA #### [facility] [address] [address] [address] Nick Perez Chloride [Moles/Vol] 103 mmol/L Normal 98-107 [facility] Comment on above: Performed By: #### C MP, LAURYN, LIPA #### [facility] [address] [address] [address] Nick Perez CO2 [Moles/Vol] 25.2 mmol/L Normal 21.0-32.0 [facility] Comment on above: Performed By: #### C SAMARIA LAURYN, LIPA #### [facility] [address] [place] [address] Dr. Nick Perez Creatinine [Mass/Vol] 0.68 mg/dL Normal 0.55-1.02 [facility] Comment on above: Performed By: #### C SAMARIA LAURYN, LIPA #### [facility] [address] [place] [address] Dr. Nick Perez EGFR-AF PANAMANIAN >60 Normal >=60 [facility] Comment on above: Performed By: #### C SAMARIA LAURYN, LIPA #### [facility] [address] [place] [address] Dr. Nick Perez EGFR-NON AF PANAMANIAN >60 Normal >=60 [facility] Comment on above: Performed By: #### C SAMARIA LAURYN, LIPA #### [facility] [address] [place] [address] Dr. Nick Perez Globulin (S) [Mass/Vol] 2.9 g/dL Normal [facility] Comment on above: Performed By: #### C MP, LAURYN, LIPA #### [facility] [address] [place] [address] Dr. Nick Perez Glucose [Mass/Vol] 99 mg/dL Normal 74-106 [facility] Comment on above: Performed By: #### C MP LAURNY, LIPA #### [facility] [address] [place] [address] Dr. Nick Perez Potassium [Moles/Vol] 3.0 mmol/L Critically low 3.5-5.1 [facility] Comment on above: Performed By: #### C LAURYN MERA LIPA #### [facility] [address] [place] [address] Dr. Nick Perez Protein [Mass/Vol] 6.8 g/dL Normal 6.4-8.2 [facility] Comment on above: Performed By: #### C LAURYN MERA LIPA #### [facility] [address] [place] [address] Dr. Nick Perez Sodium [Moles/Vol] 138 mmol/L Normal 136-145 [facility] Comment on above: Performed By: #### C LAURYN MERA LIPA #### [facility] [address] [place] [address] Dr. Nick Perez Urea nitrogen [Mass/Vol] 3.0 mg/dL Critically low 7.0-18.0 [facility] Comment on above: Performed By: #### C LAURYN MERA LIPA #### [facility] [address] [place] [address] Dr. Nick Perez Urea nitrogen/Creatinine [Mass ratio] 4.4 mg/mg Normal [facility] Comment on above: Performed By: #### C LAURYN MERA LIPA #### [facility] [address] [place] [address] Dr. Nick Perez CA 125on 06-19-2022 Cancer Antigen (CA) 125 7.8 U/mL Normal 0.0-38.1 [facility] Comment on above: Result Comment: [employer] When You Wish Electrochemiluminescence Immunoassay (ECLIA) . Values obtained with different assay methods or kits cannot be used interchangeably. Results cannot be interpreted as absolute evidence of the presence or absence of malignant disease. Performed By: #### E RUR #### [facility] [address] [place] [address] Dr. Nick Perez US PELVIS AND TRANSVAGon US PELVIS AND TRANSVAG EXAMINATION: US P MOJGAN AND TRANSVAG HISTORY: Localized enlarged lymph nodes COMPARISON: CT abdomen pelvis 05/29/2022 TECHNIQUE: Transabdominal and transvaginal sonographic examination. FINDINGS: UTERUS: Hysterectomy. RIGHT OVARY: Normal size and appearance. Duplex Doppler demonstrates normal waveform and flow; resistive index 0.6. Ovary size: 1.6 x 0.7 x 1.1 cm LEFT OVARY: Normal size and appearance. Duplex Doppler demonstrates normal waveform and flow; resistive index 0.6. Ovary size: 2.1 x 0.9 x 1.2 cm CUL-DE-SAC: Unremarkable. No significant free fluid. BLADDER: Unremarkable. OTHER: None. IMPRESSION: 1. Normal post hysterectomy ultrasound of the pelvis. Electronically authenticated by: AURA MENARD Date: 2022-06-18 13:12 Normal [facility] CT ABD/PELV W CONon 05-30-[address] ABD/PELV W CON EXAM: CT ABD/PELV W CON STUDY DATE: 05/29/2022 6:48 PM MDT COMPARISONS: CT abdomen and pelvis without contrast 10/29/2021, CT abdomen and pelvis 06/22/2019 INDICATION: DIARRHEA, UNSPECIFIED; right-sided abdominal pain TECHNIQUE: Helically acquired multidetector CT of the abdomen and pelvis after the administration of 50 cc intravenous contrast. No oral contrast was administered. Images were reconstructed in the axial plane and reformatted in coronal and sagittal planes. Dose reduction technique used: Automatic exposure control and/or adjustment of the mA and/or kV according to patient size and/or use of degenerative reconstruction technique. FINDINGS: Chest: Normal. Liver: Normal. Gallbladder and Bile Ducts: Gallbladder surgically absent. Kidney: Normal. Adrenals: Normal. Spleen: Normal. Pancreas: Normal. Bowel and stomach: The colon contains liquid stool. No bowel dilation. Appendix: Fluid-filled appendix measures measures up to 8 mm with trace mural hyperenhancement. Pelvis: The uterus is surgically absent. Ovaries are within normal limits for CT with presence of functional follicles and corpus luteal cysts. Mild circumferential bladder wall thickening may be physiologic. Mesentery/peritoneum: Unremarkable. Nodes: Bilateral external iliac lymph nodes measure up to 10 mm. A left pelvic sidewall lymph node measures 9 mm in short axis with atypical rounded morphology. Right rounded pelvic sidewall lymph node also measures 9 mm in short axis. Left common iliac lymph node measures 7 mm in short axis. Vasculature: No significant dilation or other acute finding. Bone: Left L3 pars defect and right pedicle fracture/defect with synchondrosis. Bilateral L5 pars defects with trace anterolisthesis. Soft tissues: Normal. IMPRESSION: 1. Pelvic lymphadenopathy measuring just above the upper limits up normal within the bilateral external iliac, bilateral pelvic sidewall, and left common iliac lymph node basins. Although findings may be reactive, underlying malignancy is not excluded. 2. Slight prominence of the appendix, measuring up to 8 mm in diameter. Early appendicitis should be considered in the provided clinical context of right lower quadrant pain. 3. Borderline circumferential bladder wall thickening. Recommend correlation with urinalysis. 4. Bilateral L5 pars defect. 5. Left L3 pars defect and right pedicle fracture/defect with synchondrosis. Findings of pelvic lymphadenopathy and borderline appendiceal enlargement discussed with Dr. Alfaro by Dr. Castellano at 9:13 PM, 05/29/2022. Electronically authenticated by: FAROOQ LOPEZ Date: 2022-05-29 23:15 Normal [facility] CBC AUTO DIFFon 05-29-2022 BASO # 0.0 103/ul Normal 0.0-0.1 [facility] Comment on above: Performed By: #### C BC #### [facility] [address] [address] [address] Nick Perez Basophils/100 WBC (Bld) 0.6 % Normal 0.2-2.0 [facility] Comment on above: Performed By: #### C BC #### [facility] [address] [place] [address] Dr. Nick Perez EO # 0.0 103/ul Normal 0.0-0.7 [facility] Comment on above: Performed By: #### C BC #### [facility] [address] [address] [address] Nick Perez Eosinophils/100 WBC (Bld) 0.0 % Critically low 0.9-7.0 [facility] Comment on above: Performed By: #### C BC #### [facility] [address] [place] [address] Dr. Nick Perez Erythrocyte distribution width (RBC) [Ratio] 14.7 % Normal 11.0-15.0 [facility] Comment on above: Performed By: #### C BC #### [facility] [address] [place] [address] Dr. Nick Perez Hematocrit (Bld) [Volume fraction] 41.7 % Normal 36.0-48.0 [facility] Comment on above: Performed By: #### C BC #### [facility] [address] [place] [address] Dr. Nick Perez Hemoglobin (Bld) [Mass/Vol] 14.5 g/dL Normal 12.0-16.0 [facility] Comment on above: Performed By: #### C BC #### [facility] [address] [place] [address] Dr. Nick Perez IG # 0.01 10e3/ul Normal 0.00-0.03 [facility] Comment on above: Performed By: #### C BC #### [facility] [address] [place] [address] Dr. Nick Perez IG % 0.3 % Normal 0.0-0.5 [facility] Comment on above: Performed By: #### C BC #### [facility] [address] [place] [address] Dr. Nick Perez LYMPH # 0.8 103/ul Critically low 1.2-3.8 [facility] Comment on above: Performed By: #### C BC #### [facility] [address] [place] [address] Dr. Nick Perez Lymphocytes/100 WBC (Bld) 23.0 % Normal 20.5-60.0 [facility] Comment on above: Performed By: #### C BC #### [facility] [address] [place] [address] Dr. Nick Perez MANUAL DIFF REQ NO Normal [facility] Comment on above: Performed By: #### C BC #### [facility] [address] [place] [address] Dr. Nick Perez MCH (RBC) [Entitic mass] 33.6 pg Normal 26.7-34.0 [facility] Comment on above: Performed By: #### C BC #### [facility] [address] [place] [address] Dr. Nick Perez MCHC (RBC) [Mass/Vol] 34.8 g/dL Normal 29.9-35.2 [facility] Comment on above: Performed By: #### C BC #### [facility] [address] [address] [address] Nick Perez MCV (RBC) [Entitic vol] 96.5 fL Normal 81.0-99.0 [facility] Comment on above: Performed By: #### C BC #### [facility] [address] [address] [address] Nick Perez MONO # 0.3 103/ul Normal 0.3-0.8 [facility] Comment on above: Performed By: #### C BC #### [facility] [address] [place] [address] Dr. Nick Perez Monocytes/100 WBC (Bld) 8.8 % Normal 1.7-12.0 [facility] Comment on above: Performed By: #### C BC #### [facility] [address] [place] [address] Dr. Nick Perez NEUT # 2.2 103/ul Normal 1.4-6.5 [facility] Comment on above: Performed By: #### C BC #### [facility] [address] [place] [address] Dr. Nick Perez Neutrophils/100 WBC (Bld) 67.3 % Normal 43.0-75.0 [facility] Comment on above: Performed By: #### C BC #### [facility] [address] [place] [address] Dr. Nick Perez Platelet mean volume (Bld) [Entitic vol] 9.6 fL Normal 9.5-13.5 [facility] Comment on above: Performed By: #### C BC #### [facility] [address] [place] [address] Dr. Nick Perez PLT 194 103/ul Normal 150-450 [facility] Comment on above: Performed By: #### C BC #### [facility] [address] [place] [address] Dr. Nick Perez RBC 4.32 106/ul Normal 4.20-5.40 [facility] Comment on above: Performed By: #### C BC #### [facility] [address] [place] [address] Dr. Nick Perez WBC 3.3 103/ul Critically low 4.0-11.0 [facility] Comment on above: Performed By: #### C BC #### [facility] [address] [place] [address] Dr. Nick Perez Covid-19 PCR ([facility])on SARS-CoV-2 (COVID-19) RNA LAURA+probe Ql (Unsp spec) Detected Critically abnormal NOT DETECTED [facility] Comment on above: Result Comment: This test is not yet approved or cleared by the [place] FDA. When there are no FDA-approved or cleared tests available, and other criteria are met, FDA can make tests available under an emergency access mechanism called an Emergency Use Authorization (EUA). The EUA for this test is supported by the [place] of Health and Human Service's declaration that circumstances exist to justify the emergency use of in vitro diagnostics for the detection and/or diagnosis of the virus that causes COVID-19. This EUA will remain in effect for the duration of the COVID-19 declaration justifying emergency of IVDs, unless it is terminated or revoked by the FDA (after which the test may no longer be used). Performed By: #### E RUR #### [facility] [address] [place] [address] Dr. Nick Perez ER URINE PROFILEon 2 Bilirubin Ql (U) Negative Normal NEGATIVE [facility] Comment on above: Performed By: #### E RUR #### [facility] [address] [place] [address] Dr. Nick Perez Clarity (U) CLEAR Normal CLEAR [facility] Comment on above: Performed By: #### E RUR #### [facility] [address] [place] [address] Dr. Nick Perez Color (U) YELLOW Normal YELLOW [facility] Comment on above: Performed By: #### E RUR #### [facility] [address] [address] [address] Nick ALBRECHT A micrscopic examina tion will be performed if indicated. Normal [facility] Comment on above: Performed By: #### E RUR #### [facility] [address] [address] [address] Nick Perez Glucose Ql (U) Negative Normal NEGATIVE [facility] Comment on above: Performed By: #### E RUR #### [facility] [address] [place] [address] Dr. Nick Perez Hemoglobin Ql (U) Negative Normal NEGATIVE [facility] Comment on above: Performed By: #### E RUR #### [facility] [address] [place] [address] Dr. Nick Perez Ketones Ql (U) Negative Normal NEGATIVE [facility] Comment on above: Performed By: #### E RUR #### [facility] [address] [place] [address] Dr. Nick Perez LEUKOCYTES Negative Normal NEGATIVE [facility] Comment on above: Performed By: #### E RUR #### [facility] [address] [place] [address] Dr. Nick Perez Nitrite Ql (U) Negative Normal NEGATIVE [facility] Comment on above: Performed By: #### E RUR #### [facility] [address] [place] [address] Dr. Nick Perez pH (U) 6.0 [pH] Normal 5-9 [facility] Comment on above: Performed By: #### E RUR #### [facility] [address] [place] [address] Dr. Nick Perez SPEC GRAVITY 1.015 Normal 1.005-<=1. 025 [facility] Comment on above: Performed By: #### E RUR #### [facility] [address] [place] [address] Dr. Nick Perez UA PROTEIN Negative Normal NEGATIVE/ TRACE [facility] Comment on above: Performed By: #### E RUR #### [facility] [address] [place] [address] Dr. Nick Perez UR MICRO IND NOT INDICATED Normal [facility] Comment on above: Performed By: #### E RUR #### [facility] [address] [place] [address] Dr. Nick Perez Urobilinogen Qn (U) 1.0 {Ta'U}/dL Normal 0.2 - 1. 0 [facility] Comment on above: Performed By: #### E RUR #### [facility] [address] [place] [address] Dr. Nick Perez LIPASEon 05-29-2022 Lipase [Catalytic activity/Vol] 109.0 U/L Normal 73.0-393.0 [facility] Comment on above: Performed By: #### B MP, LIPA #### [facility] [address] [place] [address] Dr. Nick Perez PROF CHEM 8 (BAS METB)on Anion gap [Moles/Vol] 12.9 mmol/L Normal [facility] Comment on above: Performed By: #### B MP, LIPA #### [facility] [address] [place] [address] Dr. Nick Perez Calcium [Mass/Vol] 8.8 mg/dL Normal 8.5-10.1 [facility] Comment on above: Performed By: #### B MP, LIPA #### [facility] [address] [place] [address] Dr. Nick Perez Chloride [Moles/Vol] 103 mmol/L Normal 98-107 [facility] Comment on above: Performed By: #### B MP, LIPA #### [facility] [address] [place] [address] Dr. Nick Perez CO2 [Moles/Vol] 24.6 mmol/L Normal 21.0-32.0 [facility] Comment on above: Performed By: #### B MP, LIPA #### [facility] [address] [place] [address] Dr. Nick Perez Creatinine [Mass/Vol] 0.72 mg/dL Normal 0.55-1.02 [facility] Comment on above: Performed By: #### B MP, LIPA #### [facility] [address] [address] [address] Nick Perez EGFR-AF PANAMANIAN >60 Normal >=60 [facility] Comment on above: Performed By: #### B MP, LIPA #### [facility] [address] [address] [address] Nick Perez EGFR-NON AF PANAMANIAN >60 Normal >=60 [facility] Comment on above: Performed By: #### B MP, LIPA #### [facility] [address] [address] [address] Nick Perez Glucose [Mass/Vol] 70 mg/dL Critically low 74-106 [facility] Comment on above: Performed By: #### B MP, LIPA #### [facility] [address] [address] [address] Nick Perez Potassium [Moles/Vol] 3.5 mmol/L Normal 3.5-5.1 [facility] Comment on above: Performed By: #### B MP, LIPA #### [facility] [address] [address] [address] Nick Perez Sodium [Moles/Vol] 137 mmol/L Normal 136-145 [facility] Comment on above: Performed By: #### B MP, LIPA #### [facility] [address] [address] [address] Nick Perez Urea nitrogen [Mass/Vol] 5.0 mg/dL Critically low 7.0-18.0 [facility] Comment on above: Performed By: #### B MP, LIPA #### [facility] [address] [address] [address] Nick ePrez Urea nitrogen/Creatinine [Mass ratio] 6.9 mg/mg Normal [facility] Comment on above: Performed By: #### B MP, LIPA #### [facility] [address] [address] [address] Nick Perez XR ANKLE LT MIN 3 Von 05-29- 2022 XR ANKLE LT MIN 3 V EXAM: XR ANKLE LT MD N 3 V DATE: 04/22/2022 11:15 AM EDT INDICATION: Pain COMPARISON: 03/31/2015 TECHNIQUE: 3 views left ankle FINDINGS: No acute fracture. Normal osseous alignment. Ankle mortise is symmetric. No osteochondral lesion of the talar dome. Mild soft tissue swelling of the ankle. IMPRESSION: 1. No acute osseous abnormality. 2. Mild soft tissue swelling of the ankle. Electronically authenticated by: IMAN QUEZADA Date: 2022-04-22 11:46 Normal [facility] XR Chest 2 Views*on 12-27-19 22 XR Chest 2 Views* FINDINGS: No change from August 24, 2021. No acute cardiac or pulmonary disease is identified. No worrisome mass lesions or infiltrates are seen. No pulmonary edema or pneumothorax is present. Cardiac silhouette size is normal. Skeletal structures are unremarkable. IMPRESSION: No acute cardiac or pulmonary disease. Report reported and signed by Dakota Horowitz on 12/27/2021 1434 Normal [facility] Q - CHLAMYDIA TRACHOMATIS/NE ISSERIA GONORRHOEAE RNA TMAon 11-02-2021 CHLAMYDIA TRACHOMATIS RNA, TMA, UROGENITAL Not detected Normal NOT DETECTED [facility] Comment on above: Order Comment: [facility] performed at: [facility], [address] [place] [address], [address] [place] [address], [phone], Photographs Curator: Michael Grewal MD [facility] Date/Time: [facility] Results Received Date/Time: [facility] Reported Date/Time: FASTING: NO Performed By: #### 1 1363, %SBNOCULI, 3020X #### [facility] Default [address] [place] [address] COMMENT SEE NOTE Normal [facility] Comment on above: Order Comment: [facility] performed at: [facility], [address] , [address] [place] [address], [phone], Photographs Curator: Michael Grewal MD [facility] Date/Time: [facility] Results Received Date/Time: [facility] Reported Date/Time: FASTING: NO Result Comment: The analytical performance characteristics of this assay, when used to test SurePath(TM) specimens have been determined by [employer]. The modifications have not been cleared or approved by the FDA. This assay has been validated pursuant to the CLIA regulations and is used for clinical purposes. For additional information, please refer to https://education.[employer] EXT[employer]/faq/XMV612 (This link is being provided for information/ educational purposes only.) Performed By: #### 1 1363, %SBNOCULI, 3020X #### [facility] [address] [place] [address] NEISSERIA GONORRHOEAE RNA, TMA, UROGENITAL Not detected Normal NOT DETECTED [facility] Comment on above: Order Comment: [facility] performed at: [employer], [employer] [facility], [address] [place] [address], [address] [place] [address], [address] [place] [address], Photographs Curator: Michael Grewal MD [facility] Date/Time: [facility] Results Received Date/Time: [facility] Reported Date/Time: FASTING: NO Performed By: #### 1 1363, %SBNOCULI, 3020X #### [facility] [address] [place] [address] Q - UR CULT REFLEXon REFLEXIVE URINE CULTURE SEE NOTE Normal [facility] Comment on above: Order Comment: [facility] performed at: [employer], [employer] [facility] [facility], [address] [place] [address], [address] [place] [address], [address] [place] [address], Photographs Curator: Michael Grewal MD [facility] Date/Time: [facility] Results Received Date/Time: [id number] [facility] Reported Date/Time: FASTING: NO Result Comment: NO C ULTURE INDICATED Performed By: #### 1 1363, %SBNOCULI, 3020X #### [facility] Default [address] [place] [address] Q - URINALYSIS,COMPLETE,WITH REFLEX TO CULTUREon 11-02-2021 Appearance (U) CLEAR Normal CLEAR [facility] Comment on above: Order Comment: [facility] performed at: [employer], [employer] [facility], [address] , [address] [place] [address], [address] [place] [address], Photographs Curator: Michael Grewal MD [facility] Date/Time: [facility] Results Received Date/Time: [facility] Reported Date/Time: FASTING: NO Performed By: #### 1 1363, %SBNOCULI, 3020X #### [facility] [address] [place] [address] BACTERIA NONE SEEN Normal NONE SEEN [facility] Comment on above: Order Comment: [facility] performed at: [employer], [employer] [facility] [facility], [address], [address] [place] [address], [address] [place] [address], Photographs Curator: Michael Grewal MD [facility] Date/Time: [facility] Results Received Date/Time: [facility] Reported Date/Time: FASTING: NO Performed By: #### 1 1363, %SBNOCULI, 3020X #### [facility] Default [address] [place] [address] Bilirubin Ql (U) Negative Normal NEGATIVE [facility] Comment on above: Order Comment: [facility] performed at: [employer], [employer] [facility], [address] , [address] [place] [address], [address] [place] [address], Photographs Curator: Michael Grewal MD [facility] Date/Time: [facility] Results Received Date/Time: [facility] Reported Date/Time: FASTING: NO Performed By: #### 1 1363, %SBNOCULI, 3020X #### [facility] [address] [place] [address] Color (U) YELLOW Normal YELLOW [facility] Comment on above: Order Comment: [facility] performed at: [employer], [employer] [facility] [facility], [address] , [address] [place] [address], [address] [place] [address], Photographs Curator: Michael Grewal MD [facility] Date/Time: [facility] Results Received Date/Time: [facility] Reported Date/Time: FASTING: NO Performed By: #### 1 1363, %SBNOCULI, 3020X #### [facility] [address] [place] [address] Glucose Ql (U) Negative Normal NEGATIVE [facility] Comment on above: Order Comment: [facility] performed at: [employer], [employer] [facility] [facility], [address] [facility], [address] [place] [address], [phone], Photographs Curator: Michael Grewal MD [facility] Date/Time: [facility] Results Received Date/Time: [facility] Reported Date/Time: FASTING: NO Performed By: #### 1 1363, %SBNOCULI, 3020X #### [facility] [address] [place] [address] HYALINE CAST NONE SEEN Normal NONE SEEN [facility] Techn[facility] Comment on above: Order Comment: [facility] performed at: [facility], [address] [place] [address], [address] [place] [address], [phone], Photographs Curator: Michael Grewal MD [facility] Date/Time: [facility] Results Received Date/Time: [facility] Reported Date/Time: FASTING: NO Performed By: #### 1 1363, %SBNOCULI, 3020X #### [facility] [address] [place] [address] Ketones Ql (U) Negative Normal NEGATIVE [facility] Comment on above: Order Comment: [facility] performed at: [facility], [address] [facility], [address] [place] [address], [phone], Photographs Curator: Michael Grewal MD [facility] Date/Time: [facility] Results Received Date/Time: [facility] Reported Date/Time: [id number] FASTING: NO Performed By: #### 1 1363, %SBNOCULI, 3020X #### [facility] [address] [place] [address] Leukocyte esterase Test strip Ql (U) Negative Normal NEGATIVE [facility] Special[facility] Comment on above: Order Comment: [facility] performed at: [employer], [employer] [facility], [address] , [address] [place] [address], [address] [place] [address], Photographs Curator: Michael Grewal MD [facility] Date/Time: [facility] Results Received Date/Time: [facility] Reported Date/Time: FASTING: NO Performed By: #### 1 1363, %SBNOCULI, 3020X #### [facility] [address] [place] [address] Nitrite Ql (U) Negative Normal NEGATIVE [facility] Specialist Comment on above: Order Comment: [facility] performed at: [employer], [employer] [facility] [facility], [address] , [address] [place] [address], [address] [place] [address], Photographs Curator: Michael Grewal MD [facility] Date/Time: [facility] Results Received Date/Time: [facility] Reported Date/Time: FASTING: NO Performed By: #### 1 1363, %SBNOCULI, 3020X #### [facility] [address] [place] [address] OCCULT BLOOD Negative Normal NEGATIVE [facility] Techn[facility] Comment on above: Order Comment: [facility] performed at: [employer], [employer] [facility] [facility], [address] , [address] [place] [address], [address] [place] [address], Photographs Curator: Michael Grewal MD [facility] Date/Time: [facility] Results Received Date/Time: [facility] Reported Date/Time: FASTING: NO Performed By: #### 1 1363, %SBNOCULI, 3020X #### [facility] Default [address] [place] [address] pH (U) 6.5 [pH] Normal 5.0-8.0 [facility] Comment on above: Order Comment: [facility] performed at: [facility], [employer] [facility] [facility], [address] [place] [address], [address] [place] [address], [address] [place] [address], Photographs Curator: Michael Grewal MD [facility] Date/Time: [facility] Results Received Date/Time: [facility] Reported Date/Time: FASTING: NO Performed By: #### 1 1363, %SBNOCULI, 3020X #### [facility] [address] [place] [address] Protein Ql (U) Negative Normal NEGATIVE [facility] Special[facility] Comment on above: Order Comment: [facility] performed at: [employer], [employer] [facility], [address] [place] [address], [address] [place] [address], [address] [place] [address], Photographs Curator: Michael Grewal MD [facility] Date/Time: [facility] Results Received Date/Time: [facility] Reported Date/Time: FASTING: NO Performed By: #### 1 1363, %SBNOCULI, 3020X #### [facility] [address] [place] [address] RBC NONE SEEN Normal < OR = 2 [facility] Comment on above: Order Comment: [facility] performed at: [employer], [employer] [facility], [address] [place] [address], [address] [place] [address], [address] [place] [address], Photographs Curator: Michael Grewal MD [facility] Date/Time: [facility] Results Received Date/Time: [facility] Reported Date/Time: FASTING: NO Performed By: #### 1 1363, %SBNOCULI, 3020X #### [facility] Default [address] [place] [address] Specific gravity (U) [Rel density] 1.005 Normal 1.001-1.03 5 [facility] Comment on above: Order Comment: [facility] performed at: [employer], [facility], [address] [facility], [address] [place], [address] [place] [address], Photographs Curator: Michael Grewal MD [facility] Date/Time: [facility] Results Received Date/Time: [facility] Reported Date/Time: FASTING: NO Performed By: #### 1 1363, %SBNOCULI, 3020X #### [facility] Default [address] [place] [address] SQUAMOUS EPITHELIAL CELLS NONE SEEN Normal < OR = 5 [facility] Specialist Comment on above: Order Comment: [facility] performed at: [facility] [employer], [address] [place] [address], [address] [place] [address], [address] [place] [address], Photographs Curator: Michael Grewal MD [facility] Date/Time: [facility] Results Received Date/Time: [facility] Reported Date/Time: FASTING: NO Performed By: #### 1 1363, %SBNOCULI, 3020X #### [facility] Default [address] [place] [address] WBC NONE SEEN Normal < OR = 5 [facility] Comment on above: Order Comment: [facility] performed at: [facility] [employer] [facility], [address] [facility], [address] [place] [address], [address] [place] [address], Photographs Curator: Michael Grewal MD [facility] Date/Time: [facility] Results Received Date/Time: [facility] Reported Date/Time: FASTING: NO Performed By: #### 1 1363, %SBNOCULI, 3020X #### [facility] Default [address] [place] [address] XR Foot 2 Views Righton XR Foot 2 Views Right HISTORY: Fall x 5 days FINDINGS: No cortical or stress fracture or evidence of fracture healing. No focal soft tissue swelling. Minimal arthritis. IMPRESSION: 1. No fracture. Report reported and signed by Dakota Horowitz on 11/02/2021 1540 Normal [facility] Techn[facility] CULTURE URINEon 11-01-2021 CULTURE URINE Culture Observations : GB STREP FAXED ER/NOTFD KAL@1015/11/01/21/RK Isolate 1 Streptococcus agalactiae 50,000 cfu/ml of ORGANISM 1 Streptococcus agalactiae ANTIBIOTIC M.I.C RX STATUS Benzylpenicillin <=0.06 S F Ampicillin <=0.25 S F Cefotaxime <=0.12 S F Ceftriaxone <=0.12 S F Levofloxacin 1 S F Inducible Clindamycin Resistance Neg NEG F Erythromycin 2 R F Clindamycin <=0.25 S F Linezolid <=2 S F Vancomycin 0.5 S F Tetracycline >=16 R F Normal [facility] Comment on above: Performed By: #### E RUR #### [facility] [address] [place] [address] Dr. Nick Perez CBC AUTO DIFFon 10-29-2021 BASO # 0.0 103/ul Normal 0.0-0.1 [facility] Comment on above: Performed By: #### E RUR #### [facility] [address] [place] [address] Dr. Nick Perez Basophils/100 WBC (Bld) 0.2 % Normal 0.2-2.0 [facility] Comment on above: Performed By: #### E RUR #### [facility] [address] [place] [address] Dr. Nick Perez EO # 0.1 103/ul Normal 0.0-0.7 [facility] Comment on above: Performed By: #### E RUR #### [facility] [address] [place] [address] Dr. Nick Perez Eosinophils/100 WBC (Bld) 0.5 % Critically low 0.9-7.0 [facility] Comment on above: Performed By: #### E RUR #### [facility] [address] [place] [address] Dr. Nick Perez Erythrocyte distribution width (RBC) [Ratio] 13.5 % Normal 11.0-15.0 [facility] Comment on above: Performed By: #### E RUR #### [facility] [address] [place] [address] Dr. Nick Perez Hematocrit (Bld) [Volume fraction] 45.9 % Normal 36.0-48.0 [facility] Comment on above: Performed By: #### E RUR #### [facility] [address] [place] [address] Dr. Nick Perez Hemoglobin (Bld) [Mass/Vol] 15.5 g/dL Normal 12.0-16.0 [facility] Comment on above: Performed By: #### E RUR #### [facility] [address] [place] [address] Dr. Nick Perez IG # 0.08 10e3/ul Critically high 0.00-0.03 [facility] Comment on above: Performed By: #### E RUR #### [facility] [address] [place] [address] Dr. Nick Perez IG % 0.5 % Normal 0.0-0.5 [facility] Comment on above: Performed By: #### E RUR #### [facility] [address] [place] [address] Dr. Nick Perez LYMPH # 3.1 103/ul Normal 1.2-3.8 [facility] Comment on above: Performed By: #### E RUR #### [facility] [address] [place] [address] Dr. Nick Perez Lymphocytes/100 WBC (Bld) 17.3 % Critically low 20.5-60.0 [facility] Comment on above: Performed By: #### E RUR #### [facility] [address] [place] [address] Dr. Nick Perez MANUAL DIFF REQ NO Normal [facility] Comment on above: Performed By: #### E RUR #### [facility] [address] [place] [address] Dr. Nick Perez MCH (RBC) [Entitic mass] 33.3 pg Normal 26.7-34.0 [facility] Comment on above: Performed By: #### E RUR #### [facility] [address] [place] [address] Dr. Nick Perez MCHC (RBC) [Mass/Vol] 33.8 g/dL Normal 29.9-35.2 [facility] Comment on above: Performed By: #### E RUR #### [facility] [address] [place] [address] Dr. Nick Perez MCV (RBC) [Entitic vol] 98.7 fL Normal 81.0-99.0 [facility] Comment on above: Performed By: #### E RUR #### [facility] [address] [place] [address] Dr. Nick Perez MONO # 0.5 103/ul Normal 0.3-0.8 [facility] Comment on above: Performed By: #### E RUR #### [facility] [facility] [address] [place] [address] Dr. Nick Perez Monocytes/100 WBC (Bld) 3.0 % Normal 1.7-12.0 [facility] Comment on above: Performed By: #### E RUR #### [facility] [address] [place] [address] Dr. Nick Perez NEUT # 13.9 103/ul Critically high 1.4-6.5 [facility] Comment on above: Performed By: #### E RUR #### [facility] [address] [place] [address] Dr. Nick Perez Neutrophils/100 WBC (Bld) 78.5 % Critically high 43.0-75.0 The [facility] Comment on above: Performed By: #### E RUR #### [facility] [address] [place] [address] Dr. Nick Perez Platelet mean volume (Bld) [Entitic vol] 9.2 fL Critically low 9.5-13.5 The [facility] Comment on above: Performed By: #### E RUR #### [facility] [address] [place] [address] Dr. Nick Perez PLT 346 103/ul Normal 150-450 The [facility] Comment on above: Performed By: #### E RUR #### [facility] [address] [place] [address] Dr. Nick Perez RBC 4.65 106/ul Normal 4.20-5.40 The [facility] Comment on above: Performed By: #### E RUR #### [facility] [address], [place] [address] Dr. Nick Perez WBC 17.7 103/ul Critically high 4.0-11.0 [facility] Comment on above: Performed By: #### E RUR #### [facility] [address] [place], [place] [address] ABD/PELVIS WO CONon 10-29 CT ABD/PELVIS WO CON EXAMINATION: CT ABD/PELVIS WO CON, 10/29/2021 10:04 AM EST HISTORY: Left flank abdominal pain, hematuria, previous history of cholecystectomy and hysterectomy COMPARISON: 06/19/2019, the 11/23/2016 TECHNIQUE: CT scan of the abdomen and pelvis was performed without IV contrast. CT dose reduction technique was used, including Automated Exposure Control. FINDINGS: CT ABDOMEN: 0.3 cm noncalcified left lower lobe pulmonary nodule is stable since 2015, considered benign. Liver is mildly prominent right lobe 17 cm craniocaudally. Mild hepatic steatosis is favored. The gallbladder surgically absent. The biliary tree is normal. Adrenal glands, spleen and pancreas demonstrate normal noncontrast morphology. Retained content within nondistended stomach is noted. The visualized abdominal aorta and inferior vena cava are normal in size and morphology. Periaortic abnormality is not evident. No nephrolithiasis, urinary tract calculus, obstructive uropathy is suspected. CT PELVIS: Bladder wall is upper normal although incompletely distended. Focal abnormality is not evident. Uterus surgically absent. The vaginal cuff region is symmetric. Right adnexa unremarkable. 1.0 and 2.1 cm left ovarian cysts are favored. Stool and gas are present within nondistended colon. Visualized bowel pattern is nonobstructive. Appendix is normal. Abdominal or pelvic lymphadenopathy, free fluid, abscess, ectopic gas are not evident. Bilateral L5 spondylolysis is seen. 0.3 cm grade 1 anterior L5-S1 spondylolisthesis is noted. Levoconvex thoracolumbar scoliosis noted. Acute osseous pathology is not evident. IMPRESSION: 1. No nephrolithiasis, urinary tract calculus or obstructive uropathy 2. Bladder wall is upper normal, incomplete distention is favored. Additional abnormality is not detected. 3. Hepatomegaly, hepatic steatosis 4. Normal appendix, nonobstructive bowel pattern 5. Hysterectomy with 1.0 and 2.1 cm left ovarian cysts. Benign cysts are favored. 6. Bilateral L5 spondylolysis, grade 1 anterior L5-S1 spondylolisthesis, levoconvex thoracolumbar scoliosis 7. Hysterectomy and cholecystectomy 8. Stable 0.3 cm left lower lobe pulmonary nodule, considered benign Electronically authenticated by: DIANA GODOY Date: 2021-10-29 11:03 Normal The [facility] ER URINE PROFILEon 1 Bilirubin Ql (U) Negative Normal NEGATIVE [facility] Comment on above: Performed By: #### U MICRO, ERUR #### [facility] [address] [place] [address] Dr. Nick Perez Clarity (U) CLEAR Normal CLEAR [facility] Comment on above: Performed By: #### U MICRO, ERUR #### [facility] [address] [place] [address] Dr. Nick Perez Color (U) LT. YELLOW Normal YELLOW [facility] Comment on above: Performed By: #### U MICRO, ERUR #### [facility] [address] [place] [address] [address] Nick Perez ERURUTHD A micrscopic examina tion will be performed if indicated. Normal The [facility] Comment on above: Performed By: #### U MICRO, ERUR #### [facility] [address] [place] [address] [address] Nick Perez Glucose Ql (U) Negative Normal NEGATIVE [facility] Comment on above: Performed By: #### U MICRO, ERUR #### [facility] [address] [address] [address] Nick Perez Hemoglobin Ql (U) LARGE Abnormal NEGATIVE [facility] Comment on above: Performed By: #### U MICRO, ERUR #### [facility] [address] [place] [address] Dr. Nick Perez Ketones Ql (U) Negative Normal NEGATIVE [facility] Comment on above: Performed By: #### U MICRO, ERUR #### [facility] [address] [place] [address] Dr. Nick Perez LEUKOCYTES LARGE Abnormal NEGATIVE [facility] Comment on above: Performed By: #### U MICRO, ERUR #### [facility] [address] [place] [address] Dr. Nick Perez Nitrite Ql (U) Negative Normal NEGATIVE [facility] Comment on above: Performed By: #### U MICRO, ERUR #### [facility] [address] [place] [address] Dr. Nick Perez pH (U) 7.0 [pH] Normal 5-9 [facility] Comment on above: Performed By: #### U MICRO, ERUR #### [facility] [address] [place] [address] Dr. Nick Perez SPEC GRAVITY <=1.005 Abnormal 1.005-<=1. 025 [facility] Comment on above: Performed By: #### U MICRO, ERUR #### [facility] [address] [place] [address] Dr. Nick Perez UA PROTEIN Negative Normal NEGATIVE/ TRACE The [facility] Comment on above: Performed By: #### U MICRO, ERUR #### [facility] [address] [place] [address] Dr. Nick Perez UR MICRO IND INDICATED Normal [facility] Comment on above: Performed By: #### U MICRO, ERUR #### [facility] [address] [place] [address] Dr. Nick Perez Urobilinogen Qn (U) 0.2 {Ta'U}/dL Normal 0.2 - 1. 0 [facility] Comment on above: Performed By: #### U MICRO, ERUR #### [facility] [address] [place] [address] Dr. Nick Perez PROF CHEM 8 (BAS METB)on Anion gap [Moles/Vol] 13.0 mmol/L Normal Th [facility] Comment on above: Performed By: #### E RUR #### [facility] [address] [place] [address] Dr. Nick Perez Calcium [Mass/Vol] 9.0 mg/dL Normal 8.4-10.2 [facility] Comment on above: Performed By: #### E RUR #### [facility] [address] [address] [address] Nick Perez Chloride [Moles/Vol] 98 mmol/L Normal 98-107 [facility] Comment on above: Performed By: #### E RUR #### [facility] [address] [address] [address] Nick Perez CO2 [Moles/Vol] 26.7 mmol/L Normal 22.0-30.0 [facility] Comment on above: Performed By: #### E RUR #### [facility] [address] [place] [address] Dr. Nick Perez Creatinine [Mass/Vol] 0.62 mg/dL Normal 0.52-1.04 [facility] Comment on above: Performed By: #### E RUR #### [facility] [address] [place] [address] Dr. Nick Perez EGFR-AF PANAMANIAN >60 Normal >=60 [facility] Comment on above: Performed By: #### E RUR #### [facility] [address] [place] [address] Dr. Nick Perez EGFR-NON AF PANAMANIAN >60 Normal >=60 [facility] Comment on above: Performed By: #### E RUR #### [facility] [address] [place] [address] Dr. Nick Perez Glucose [Mass/Vol] 109 mg/dL Critically high 74-106 [facility] Comment on above: Performed By: #### E RUR #### [facility] [address] [place] [address] Dr. Nick Perez Potassium [Moles/Vol] 3.7 mmol/L Normal 3.4-5.0 [facility] Comment on above: Performed By: #### E RUR #### [facility] [address] [place] [address] Dr. Nick Perez Sodium [Moles/Vol] 134 mmol/L Critically low 137-145 Th [facility] Comment on above: Performed By: #### E RUR #### [facility] [address] [place] [address] Dr. Nick Perez Urea nitrogen [Mass/Vol] 6.0 mg/dL Critically low 7.0-17.0 [facility] Comment on above: Performed By: #### E RUR #### [facility] [address] [place] [address] Dr. Nick Perez Urea nitrogen/Creatinine [Mass ratio] 9.7 mg/mg Normal The [facility] Comment on above: Performed By: #### E RUR #### [facility] [address] [place] [address] Dr. Nick Perez URINE MICROSCOPIC ONLYon BACTERIA SMALL Abnormal NONE SEEN [facility] Comment on above: Performed By: #### E RUR #### [facility] [address] [place] [address] Dr. Nick Perez Bacteria identified Cx Nom (U) INDICATED Normal [facility] Comment on above: Performed By: #### E RUR #### [facility] [address] [place] [address] Dr. Nick Perez CAST NONE SEEN Normal NONE SEEN [facility] Comment on above: Performed By: #### E RUR #### [facility] [address] [place] [address] Dr. Nick Perez Crystals LM Nom (Urine sed) NONE SEEN Normal NONE SEEN The [facility] Comment on above: Performed By: #### E RUR #### [facility] [address] [place] [address] Dr. Nick Perez Epithelial cells LM Ql (Urine sed) FEW Abnormal NONE SEEN /RARE The [facility] Comment on above: Performed By: #### E RUR #### [facility] [address] [place] [address] Dr. Nick Perez MUCOUS NONE SEEN Normal NONE SEEN The [facility] Comment on above: Performed By: #### E RUR #### [facility] [address] [place] [address] Dr. Nick Perez RBC 10-20 Abnormal 0-2 The [facility] Comment on above: Performed By: #### E RUR #### [facility] [address], [place] [address] Dr. Nick Perez WBC 20-50 Abnormal NONE SEEN The [facility] Comment on above: Performed By: #### E RUR #### [facility] [address] [place], [place] [address] Dr. Nick Perez Vital Signs Date Time Vital Sign Value Performing Clinician Faci lity 08-20-2025 16:21-0400 Body mass index (BMI) [Ratio] 28.49 kg/m2 Janina Swinehart TAILORING TEACHER Work Phone: [facility] 08-20-2025 16:21-0400 Body temperature 97.3 [degF] Janina Swinehart TAILORING TEACHER Work Phone: [facility] 08-20-2025 16:21-0400 Body weight 75.3 kg Janina Swinehart TAILORING TEACHER Work Phone: [facility] 08-20-2025 16:21-0400 Diastolic blood pressure 70 mm[Hg] Janina Swinehart TAILORING TEACHER Work Phone: [facility] 08-20-2025 16:21-0400 Heart rate 80 /min Janina Swinehart TAILORING TEACHER Work Phone: [facility] 08-20-2025 16:21-0400 SaO2% (BldA) [Mass fraction] 97 % Janina Swinehart TAILORING TEACHER Work Phone: [facility] 08-20-2025 16:21-0400 Systolic blood pressure 112 mm[Hg] Janina Swinehart TAILORING TEACHER Work Phone: [facility] 05-14-2025 15:26-0400 Body height 162.6 cm Anaya Majors TAILORING TEACHER Work Phone: [facility] 05-14-2025 15:26-0400 Body mass index (BMI) [Ratio] 28.43 kg/m2 Anaya Majors TAILORING TEACHER Work Phone: [facility] 05-14-2025 15:26-0400 Body temperature 98.71 [degF] Anaya Morton [employer]ILORING TEACHER Work Phone: [facility] 05-14-2025 15:26-0400 Body weight 75.12 kg Anaya Morton TAILORING TEACHER Work Phone: [facility] 05-14-2025 15:26-0400 Diastolic blood pressure 72 mm[Hg] Anaya Fields [employer]ILORING TEACHER Work Phone: [facility] 05-14-2025 15:26-0400 Heart rate 70 /min Anaya Fields TAILORING TEACHER Work Phone: [facility] 05-14-2025 15:26-0400 SaO2% (BldA) [Mass fraction] 96 % Anaya Morton TAILORING TEACHER Work Phone: [facility] 05-14-2025 15:26-0400 Systolic blood pressure 110 mm[Hg] Anaya Morton TAILORING TEACHER Work Phone: [facility] 04-15-2025 15:35-0400 Body height 162.6 cm Janiya Raygoza MD Work Phone: [facility] 04-15-2025 15:35-0400 Body mass index (BMI) [Ratio] 28.84 kg/m2 Janiya Raygoza MD Work Phone: [facility] 04-15-2025 15:35-0400 Body weight 76.2 kg Janiya Raygoza MD Work Phone: [facility] 04-15-2025 15:35-0400 Diastolic blood pressure 84 mm[Hg] Janiya Raygoza MD Work Phone: [facility] 04-15-2025 15:35-0400 Heart rate 80 /min Janiya Raygoza MD Work Phone: [facility] 04-15-2025 15:35-0400 Respiratory rate 18 /min Janiya Raygoza MD Work Phone: [facility] 04-15-2025 15:35-0400 Systolic blood pressure 120 mm[Hg] Janiya Raygoza MD Work Phone: [facility] 04-13-2025 15:55-0400 Body height 162.6 cm Kiet Kelley MD Work Phone: [facility] [employer] 04-13-2025 15:55-0400 Body mass index (BMI) [Ratio] 30.9 kg/m2 Kiet Kelley MD Work Phone: [facility] [employer] 04-13-2025 15:55-0400 Body temperature 97.5 [degF] Kiet Kelley MD Work Phone: [facility] [employer] 04-13-2025 15:55-0400 Body weight 81.65 kg Kiet Kelley MD Work Phone: [facility] [employer] 04-13-2025 15:55-0400 Diastolic blood pressure 90 mm[Hg] Kiet Kelley MD Work Phone: [facility] [employer] 04-13-2025 15:55-0400 Heart rate 73 /min Kiet Kelley MD Work Phone: [facility] [employer] 04-13-2025 15:55-0400 Respiratory rate 18 /min Kiet Kelley MD Work Phone: [facility] [employer] 04-13-2025 15:55-0400 SaO2% (BldA) [Mass fraction] 98 % Kiet Kelley MD Work Phone: [facility] [employer] 04-13-2025 15:55-0400 Systolic blood pressure 123 mm[Hg] Kiet Kelley MD Work Phone: [facility] [employer] 12-03-2024 14:54-0500 Body height 162.6 cm Lauryn MCLEOD Work Phone: [facility] 12-03-2024 14:54-0500 Body mass index (BMI) [Ratio] 29.49 kg/m2 Lauryn MCLEOD Work Phone: [facility] 12-03-2024 14:54-0500 Body weight 77.93 kg Lauryn Ade PA Work Phone: [facility] 12-03-2024 14:54-0500 Diastolic blood pressure 70 mm[Hg] Lauryn MCLEOD Work Phone: [facility] 12-03-2024 14:54-0500 Systolic blood pressure 110 mm[Hg] Lauryn Booker PA Work Phone: [facility] 11-07-2024 08:02-0500 Body height 166.4 cm Sarah Lapatrick TAILORING TEACHER Work Phone: [facility] 11-07-2024 08:02-0500 Body mass index (BMI) [Ratio] 26.06 kg/m2 Sarah Kingzpatrick TAILORING TEACHER Work Phone: [facility] 11-07-2024 08:02-0500 Body weight 72.12 kg Sarah Lapatrick TAILORING TEACHER Work Phone: [facility] 11-07-2024 08:02-0500 Diastolic blood pressure 80 mm[Hg] Sarah Kingzpatrick TAILORING TEACHER Work Phone: [facility] 11-07-2024 08:02-0500 Heart rate 68 /min Sarah Schultz TAILORING TEACHER Work Phone: [facility] 11-07-2024 08:02-0500 Respiratory rate 18 /min Sarah Lapatrick TAILORING TEACHER Work Phone: [facility] 11-07-2024 08:02-0500 SaO2% (BldA) [Mass fraction] 98 % Sarah Kingzpatrick TAILORING TEACHER Work Phone: [facility] 11-07-2024 08:02-0500 Systolic blood pressure 128 mm[Hg] Sarah Schultz TAILORING TEACHER Work Phone: [facility] 11-02-2024 14:22-0500 SaO2% (BldA) [Mass fraction] 96 % Kiet Kelley MD Work Phone: [facility] 11-02-2024 13:22-0500 Diastolic blood pressure 77 mm[Hg] Kiet Kelley MD Work Phone: [facility] [employer] 11-02-2024 13:22-0500 Systolic blood pressure 135 mm[Hg] Kiet Kelley MD Work Phone: [facility] [employer] 11-02-2024 13:09-0500 Body temperature 98.49 [degF] Kiet Kelley MD Work Phone: [facility] [employer] 11-02-2024 13:02-0500 Body height 162.6 cm Kiet Kelley MD Work Phone: [facility] [employer] 11-02-2024 13:02-0500 Body mass index (BMI) [Ratio] 27.46 kg/m2 Kiet Kelley MD Work Phone: [facility] [employer] 11-02-2024 13:02-0500 Body weight 72.58 kg Kiet Kelley MD Work Phone: [facility] [employer] 11-02-2024 13:02-0500 Heart rate 110 /min Kiet Kelley MD Work Phone: [facility] [employer] 11-02-2024 13:02-0500 Respiratory rate 18 /min Kiet Kelley MD Work Phone: [facility] [employer] 08-07-2024 09:57-0400 Body height 162.6 cm Kiet Kelley MD Work Phone: [facility] [employer] 08-07-2024 09:57-0400 Body mass index (BMI) [Ratio] 25.75 kg/m2 Kiet Kelley MD Work Phone: [facility] [employer] 08-07-2024 09:57-0400 Body temperature 98.01 [degF] Kiet Kelley MD Work Phone: [facility] [employer] 08-07-2024 09:57-0400 Body weight 68.04 kg Kiet Kelley MD Work Phone: [employer] 08-07-2024 09:57-0400 Diastolic blood pressure 84 mm[Hg] Kiet Kelley MD Work Phone: [email or web address] [employer] 08-07-2024 09:57-0400 Heart rate 93 /min Kiet Kelley MD Work Phone: [email or web address] [employer] 08-07-2024 09:57-0400 Respiratory rate 19 /min Kiet Kelley MD Work Phone: [email or web address] [employer] 08-07-2024 09:57-0400 SaO2% (BldA) [Mass fraction] 99 % Kiet Kelley MD Work Phone: [facility] [employer] 08-07-2024 09:57-0400 Systolic blood pressure 128 mm[Hg] Kiet Kelley MD Work Phone: [facility] 05-22-2024 20:22-0400 Body temperature 97.7 [degF] Hernandez Dave [facility] 05-22-2024 20:22-0400 Diastolic blood pressure 90 mm[Hg] Hernandez Dave [facility] 05-22-2024 20:22-0400 Heart rate 104 /min Hernandez Dave [facility] 05-22-2024 20:22-0400 Respiratory rate 18 /min Hernandez Dave [facility] 05-22-2024 20:22-0400 SaO2% (BldA) [Mass fraction] 97 % Hernandez Dave [facility] 05-22-2024 20:22-0400 Systolic blood pressure 126 mm[Hg] Hernandez Dave [facility] 03-23-2024 13:18-0400 Body temperature 98.4 [degF] Erwin Dalal MD Work Phone: [email or web address] [employer] 03-23-2024 13:18-0400 Diastolic blood pressure 80 mm[Hg] Erwin Dalal MD Work Phone: [email or web address] [employer] 03-23-2024 13:18-0400 Heart rate 68 /min Erwin Dalal MD Work Phone: [facility] 03-23-2024 13:18-0400 Respiratory rate 20 /min Erwin Dalal MD Work Phone: [facility] 03-23-2024 13:18-0400 SaO2% (BldA) [Mass fraction] 99 % Erwin Dalal MD Work Phone: [facility] 03-23-2024 13:18-0400 Systolic blood pressure 115 mm[Hg] Erwin Dalal MD Work Phone: [facility] 03-10-2024 13:31-0400 Body temperature 98.06 [degF] Bari Alicea [facility] 03-10-2024 13:31-0400 Diastolic blood pressure 86 mm[Hg] Bari Alicea [facility] 03-10-2024 13:31-0400 Heart rate 103 /min Bari Alicea [facility] 03-10-2024 13:31-0400 Respiratory rate 16 /min Bari Alicea [facility] 03-10-2024 13:31-0400 SaO2% (BldA) [Mass fraction] 98 % Bari Alicea [facility] 03-10-2024 13:31-0400 Systolic blood pressure 133 mm[Hg] Bari Alicea [facility] 02-19-2024 10:34-0400 Heart rate 68 /min Colby Sky [facility] 02-19-2024 10:34-0400 Respiratory rate 18 /min Colby Jose Daniel [facility] 02-19-2024 10:25-0400 Heart rate 80 /min Colby Jose Daniel [facility] 02-19-2024 10:25-0400 Respiratory rate 18 /min Colby Jose Daniel [facility] 02-19-2024 10:14-0400 Body temperature 98.06 [degF] Colby Jose Daniel [facility] 02-19-2024 10:14-0400 Diastolic blood pressure 81 mm[Hg] Colby Jose Daniel [facility] 02-19-2024 10:14-0400 Heart rate 63 /min Colby Jose Daniel [facility] 02-19-2024 10:14-0400 Respiratory rate 18 /min Colby Jose Daniel [facility] 02-19-2024 10:14-0400 SaO2% (BldA) [Mass fraction] 98 % Colby Sky [facility] 02-19-2024 10:14-0400 Systolic blood pressure 121 mm[Hg] Colby Jose Daniel [facility] 11-05-2023 14:14-0500 Diastolic blood pressure 79 mm[Hg] Bari Alicea [facility] 11-05-2023 14:14-0500 Heart rate 56 /min Bari Alicea [facility] 11-05-2023 14:14-0500 Respiratory rate 16 /min Bari Alicea [facility] 11-05-2023 14:14-0500 SaO2% (BldA) [Mass fraction] 98 % Bari Nixon [facility] 11-05-2023 14:14-0500 Systolic blood pressure 107 mm[Hg] Bari Wange [facility] 11-05-2023 13:15-0500 Diastolic blood pressure 73 mm[Hg] Bari Wange [facility] 11-05-2023 13:15-0500 Heart rate 63 /min Bari Wange [facility] 11-05-2023 13:15-0500 Mean blood pressure 85 mm[Hg] Bari Wange [facility] 11-05-2023 13:15-0500 Respiratory rate 16 /min Bari Wange [facility] 11-05-2023 13:15-0500 SaO2% (BldA) [Mass fraction] 98 % Bari Wange [facility] 11-05-2023 13:15-0500 Systolic blood pressure 110 mm[Hg] Bari Wange [facility] 11-05-2023 12:55-0500 Body temperature 97.7 [degF] Bari Wange [facility] 11-05-2023 12:55-0500 Diastolic blood pressure 93 mm[Hg] Bari Wange [facility] 11-05-2023 12:55-0500 Heart rate 72 /min Bari Nixon [facility] 11-05-2023 12:55-0500 Respiratory rate 18 /min Bari Wange [facility] 11-05-2023 12:55-0500 SaO2% (BldA) [Mass fraction] 99 % Bari Nixon [facility] 11-05-2023 12:55-0500 Systolic blood pressure 151 mm[Hg] Bari Alicea [facility] 08-11-2023 11:21-0400 SaO2% (BldA) [Mass fraction] 98 % Alvaro Alonso MD Work Phone: [employer] 08-11-2023 10:45-0400 Body height 162.6 cm Alvaro Alonso MD Work Phone: [employer] 08-11-2023 10:45-0400 Body mass index (BMI) [Ratio] 24.03 kg/m2 Alvaro Alonso MD Work Phone: [employer] 08-11-2023 10:45-0400 Body temperature 98.8 [degF] Alvaro Alonso MD Work Phone: [employer] 08-11-2023 10:45-0400 Body weight 63.5 kg Alvaro Alonso MD Work Phone: [employer] 08-11-2023 10:45-0400 Diastolic blood pressure 89 mm[Hg] Alvaro Alonso MD Work Phone: [employer] 08-11-2023 10:45-0400 Heart rate 74 /min Alvaro Alonso MD Work Phone: [employer] 08-11-2023 10:45-0400 Respiratory rate 20 /min Alvaro Alonso MD Work Phone: [employer] 08-11-2023 10:45-0400 Systolic blood pressure 117 mm[Hg] Alvaro Alonso MD Work Phone: [employer] 07-15-2023 13:32-0400 Body height 162.56 cm Janiya Raygoza Work Phone: [facility] [place] [facility] Work Phone: 07-15-2023 13:32-0400 Body mass index (BMI) [Ratio] 25.09 kg/m2 Janiya Brand Idalmis Work Phone: [facility] [facility] Work Phone: 07-15-2023 13:32-0400 Body surface area Derived from formula 1.71 m2 Janiya Raygoza Work Phone: [facility] [facility] Work Phone: 07-15-2023 13:32-0400 Body weight 66.3 kg Janiya Raygoza Work Phone: [facility] [facility] Work Phone: 01-10-2023 06:00-0500 Body temperature 97.5 [degF] MD Janiya Raygoza Work Phone: [facility] 01-10-2023 06:00-0500 Diastolic blood pressure 73 mm[Hg] MD Janiya Raygoza Work Phone: [facility] 01-10-2023 06:00-0500 Heart rate 60 /min MD Janiya Raygoza Work Phone: [facility] 01-10-2023 06:00-0500 Respiratory rate 18 /min MD Janiya Raygoza Work Phone: [facility] 01-10-2023 06:00-0500 SaO2% (BldA) [Mass fraction] 96 % MD Janiya Raygoza Work Phone: [facility] 01-10-2023 06:00-0500 Systolic blood pressure 111 mm[Hg] MD Janiya Raygoza Work Phone: [facility] 01-08-2023 14:24-0500 Body height 162.56 cm MD Janiya Raygoza Work Phone: [facility] 01-08-2023 04:46-0500 Body weight 64.86 kg MD Janiya Raygoza Work Phone: [facility] 01-08-2023 03:27-0500 Body temperature 98.6 [degF] [facility] 01-08-2023 03:27-0500 Diastolic blood pressure 58 mm[Hg] Bari Nixon [facility] 01-08-2023 03:27-0500 Heart rate 67 /min Bari Nixon [facility] 01-08-2023 03:27-0500 Mean blood pressure 76 mm[Hg] Bari Nixon [facility] 01-08-2023 03:27-0500 Respiratory rate 18 /min Bari Nixon [facility] 01-08-2023 03:27-0500 SaO2% (BldA) [Mass fraction] 94 % Bari Nixon [facility] 01-08-2023 03:27-0500 Systolic blood pressure 112 mm[Hg] Bari Nixon [facility] 01-08-2023 02:15-0500 Heart rate 70 /min Bari Nixon [facility] 01-08-2023 02:15-0500 Respiratory rate 19 /min Bari Nixon [facility] 01-08-2023 02:15-0500 SaO2% (BldA) [Mass fraction] 95 % Bari Nixon [facility] 01-08-2023 01:10-0500 Heart rate 75 /min Bari Nixon [facility] 01-08-2023 01:10-0500 Respiratory rate 27 /min Bari Nixon [facility] 01-08-2023 01:10-0500 SaO2% (BldA) [Mass fraction] 96 % Bair Nixon [facility] 01-08-2023 00:16-0500 Hourly Rounding Bari W[facility] 01-07-2023 23:15-0500 Diastolic blood pressure 71 mm[Hg] [facility] 01-07-2023 23:15-0500 Hourly Rounding [facility] 01-07-2023 23:15-0500 Mean blood pressure 81 mm[Hg] Bair [facility] 01-07-2023 23:15-0500 Systolic blood pressure 100 mm[Hg] [facility] 01-07-2023 22:15-0500 Hourly Rounding [facility]ari [facility] 01-07-2023 21:44-0500 Diastolic blood pressure 82 mm[Hg] [facility] 01-07-2023 21:44-0500 Mean blood pressure 91 mm[Hg] [facility] 01-07-2023 21:44-0500 Systolic blood pressure 110 mm[Hg] [facility]ari [facility] 01-07-2023 15:48-0500 Body temperature 98.6 [degF] [facility] 01-07-2023 15:48-0500 Heart rate 115 /min Bari Wange [facility] 01-07-2023 15:48-0500 Respiratory rate 19 /min [facility] 01-03-2023 14:50-0500 Body height 162.56 cm Janiya Raygoza Work Phone: [facility] Work Phone: 01-03-2023 14:50-0500 Body mass index (BMI) [Ratio] 25.06 kg/m2 Janiya Raygoza Work Phone: [facility] Work Phone: 01-03-2023 14:50-0500 Body surface area Derived from formula 1.71 m2 Janiya Raygoza Work Phone: [facility] Work Phone: 01-03-2023 14:50-0500 Body weight 66.23 kg Janiya Raygoza Work Phone: [facility] Work Phone: 01-03-2023 14:50-0500 Diastolic blood pressure 82 mm[Hg] Janiya Raygoza Work Phone: [facility] [facility] Work Phone: 01-03-2023 14:50-0500 Heart rate 92 /min Janiya Raygoza Work Phone: [facility] Work Phone: 01-03-2023 14:50-0500 Respiratory rate 95 /min Janiya Raygoza Work Phone: [facility] Work Phone: 01-03-2023 14:50-0500 Systolic blood pressure 120 mm[Hg] Janiya Raygoza Work Phone: [facility] Work Phone: 12-29-2022 16:14-0500 SaO2% (BldA) [Mass fraction] 97 % Dakota Robb MD Work Phone: [employer] 12-29-2022 15:55-0500 Body temperature 97.9 [degF] Dakota Robb MD Work Phone: [employer] 12-29-2022 15:55-0500 Diastolic blood pressure 83 mm[Hg] Dakota Robb MD Work Phone: [facility] [employer] 12-29-2022 15:55-0500 Heart rate 80 /min Dakota Robb MD Work Phone: [facility] [employer] 12-29-2022 15:55-0500 Respiratory rate 20 /min Dakota Robb MD Work Phone: [facility] [employer] 12-29-2022 15:55-0500 Systolic blood pressure 132 mm[Hg] [facility] 12-29-2022 15:54-0500 Body height 162.6 cm Dakota [facility] 12-29-2022 15:54-0500 Body mass index (BMI) [Ratio] 25.35 kg/m2 Dakota Robb MD Work Phone: [facility] [employer] 12-29-2022 15:54-0500 Body weight 67 kg Dakota Robb MD Work Phone: [facility] [employer] 10-31-2022 13:15-0500 Diastolic blood pressure 72 mm[Hg] [facility]3 [facility] 10-31-2022 13:15-0500 Heart rate 76 /[facility] 10-31-2022 13:15-0500 Respiratory rate 16 /min [facility] 10-31-2022 13:15-0500 SaO2% (BldA) [Mass fraction] 98 % [facility] 10-31-2022 13:15-0500 Systolic blood pressure 105 mm[Hg] [facility] Encounters Encounter Date Encounter Type Care Provider Facility Start: 08-20-2025 End: 08-20-2025 Office outpatient visit 15 minutes Janina Cunningham NP Work Phone: [facility] Comment on above: 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) Start: 08-20-2025 End: 08-20-2025 ambulatory JANINA CUNNINGHAM Not Available Start: 08-20-2025 End: 08-20-2025 Bamboo flowsheet Janina Mustafat TAILORING TEACHER Work Phone: [facility] Start: 08-20-2025 End: 08-20-2025 Bamboo flowsheet Janina Blevinshart TAILORING TEACHER Work Phone: [facility] Start: 08-10-2025 End: 08-11-2025 ambulatory Mamta Mir [employer]PER[employer] Work Phone: [facility] Start: 05-18-2025 End: 05-18-2025 Telephone encounter Janiya Raygoza MD Work Phone: [facility] Start: 05-14-2025 End: 05-14-2025 Office outpatient visit 25 minutes Anaya Morton TAILORING TEACHER Work Phone: [facility] Comment on above: Palpitations (Primar y Dx); Neck pain; Acute bilateral back pain, unspecified back location Start: 05-14-2025 End: 05-14-2025 ambulatory ANAYA MAJORS Not Available Start: 05-14-2025 End: 05-14-2025 Bamboo flowsheet Anaya Majors TAILORING TEACHER Work Phone: [facility] Start: 05-14-2025 End: 05-14-2025 Bamboo flowsheet Anaya Majors TAILORING TEACHER Work Phone: [facility] Start: 05-11-2025 End: 05-11-2025 ambulatory Mamta Mir [employer]PER[employer] Work Phone: [facility] Start: 05-08-2025 End: 05-08-2025 Emergency department patient visit [facility] Start: 05-05-2025 End: 05-05-2025 Telephone encounter Janiya Raygoza MD Work Phone: [facility] Start: 04-26-2025 End: 04-28-2025 ambulatory [facility] Start: 04-26-2025 End: 04-28-2025 Subsequent hospital visit by physician [facility] Comment on above: Palpitations Start: 04-21-2025 End: 04-21-2025 ambulatory [facility] Start: 04-21-2025 End: 04-21-2025 Subsequent hospital visit by physician [facility] Comment on above: Palpitations Start: 04-15-2025 End: 04-15-2025 Office outpatient visit 25 minutes Janiya Raygoza MD Work Phone: [facility] Comment on above: Hyperglycemia (Prima ry Dx); Acute bronchitis, unspecified organism; Palpitations Start: 04-15-2025 End: 04-15-2025 ambulatory JANIYA RAYGOZA Not Available Start: 04-13-2025 End: 04-13-2025 Emergency department patient visit Kiet Kelley MD Work Phone: [facility] Comment on above: Moderate persistent asthmatic bronchitis with acute exacerbation (Primary Dx) Start: 02-23-2025 End: 02-23-2025 ambulatory [facility] Start: 02-23-2025 End: 02-23-2025 Subsequent hospital visit by physician Janiya Raygoza MD Work Phone: [facility] Start: 02-23-2025 End: 02-23-2025 Clinisync Result Encounter Janiya Raygoza MD Work Phone: [facility] Unsolicited Start: 02-23-2025 End: 02-23-2025 Clinisync Result Encounter Janiya Raygoza MD Work Phone: [facility] Unsolicited Start: 02-23-2025 End: 02-23-2025 Telephone encounter Janiya Raygoza MD Work Phone: [facility] Start: 12-03-2024 End: 12-03-2024 Patient encounter procedure Lauryn MCLEOD Work Phone: [facility] Work Phone: Start: 12-03-2024 End: 12-03-2024 Periodic preventive med est patient 18-39 yrs Lauryn MCLEOD Work Phone: [facility] Comment on above: Well woman exam with routine gynecological exam Start: 12-03-2024 End: 12-03-2024 ambulatory LAURYN BOOKER Not Available Start: 12-03-2024 End: 12-03-2024 Bamboo flowsheet Lauryn MCLEOD Work Phone: [facility] Start: 12-03-2024 End: 12-08-2024 Bamboo flowsheet Lauryn MCLEOD Work Phone: [facility] Start: 12-03-2024 End: 12-08-2024 Clinisync Result Encounter Generic External Data Provider [facility] Unsolicited Start: 11-07-2024 End: 11-07-2024 Bamboo flowsheet Sarah Schultz TAILORING TEACHER Work Phone: [facility] Start: 11-07-2024 End: 11-07-2024 Bamboo flowsheet Sarah Schultz TAILORING TEACHER Work Phone: [facility] Start: 11-07-2024 End: 11-07-2024 Office outpatient visit 25 minutes Sarah Schultz TAILORING TEACHER Work Phone: [facility] Comment on above: Bronchitis (Primary Dx); Wheezing Start: 11-07-2024 End: 11-07-2024 ambulatory SARAH SCHULTZ Not Available Start: 11-02-2024 End: 11-02-2024 Emergency department patient visit Kiet Kelley MD Work Phone: [facility] Emergency Department Comment on above: Right flank pain (Pr imary Dx); Acute bronchitis, unspecified organism Start: 08-07-2024 End: 08-08-2024 Clinisync Result Encounter Generic External Data Provider [facility] Unsolicited Start: 08-07-2024 End: 08-08-2024 Clinisync Result Encounter Generic External Data Provider [facility] Unsolicited Start: 08-07-2024 End: 08-07-2024 Emergency department patient visit Kiet Kelley MD Work Phone: [facility] Comment on above: Right flank pain (Pr imary Dx) Start: 05-22-2024 End: 05-23-2024 Emergency department patient visit Hernandez [facility] Start: 03-23-2024 End: 03-23-2024 Emergency department patient visit Erwin Dalal MD Work Phone: [facility] Comment on above: Visit for suture rem oval (Primary Dx) Start: 03-10-2024 End: 03-10-2024 Emergency department patient visit Bari Alicea [facility] Start: 02-19-2024 End: 02-19-2024 Emergency department patient visit Colby Sky [facility] Start: 11-05-2023 End: 11-05-2023 Emergency department patient visit Bari Alicea [facility] Start: 08-11-2023 End: 08-11-2023 Emergency department patient visit Alvaro Alonso MD Work Phone: [facility] Comment on above: Viral URI with cough (Primary Dx); Mild intermittent asthma with exacerbation Start: 07-15-2023 Office outpatient vi sit 25 minutes Janiya Raygoza Work Phone: [facility] Work Phone: Start: 07-15-[address] Jing Troncoso Facraghu lity:[phone] Start: 04-25-[address] Jing Turner lity:[phone] Start: 02-08-2023 Chart Update Janiya Raygoza Work Phone: [facility] Work Phone: Start: 02-04-2023 Chart Update Janiya Raygoza Work Phone: [facility] Work Phone: Start: 02-01-2023 Chart Update Janiya Raygoza Work Phone: [facility] Work Phone: Start: 02-01-2023 ambulatory Jing Troncoso Facility:[id number] Start: 01-18-2023 AUDIT Janiya Raygoza Work Phone: [facility] Work Phone: Start: 01-08-2023 End: 01-10-2023 Evaluation and management of inpatient Morejordon Emma Facility:[facility] Start: 01-08-2023 End: 01-10-2023 Evaluation and management of inpatient Janiya Idalmis Work Phone: [address] Work Phone: Start: 01-07-2023 End: 01-08-2023 Emergency department patient visit Bari Alicea [facility] Start: 01-03-2023 Office outpatient ne w 45 minutes Janiya Raygoza Work Phone: [facility] Work Phone: Start: 01-03-[address] Jing Troncoso Faci lity:[phone] Start: 12-29-2022 End: 12-29-2022 Emergency department patient visit Dakota Robb MD Work Phone: [facility] ED Comment on above: Moderate persistent asthma with exacerbation (Primary Dx) Start: 11-24-2022 End: 12-10-2022 ambulatory [facility] PROVIDER [facility] Start: 10-31-2022 End: 10-31-2022 ambulatory [facility] y Triage, Treat and Transport Start: 10-31-2022 End: 10-31-2022 Emergency department patient visit [facility] Emergency Triage, Treat and Transport Comment on above: Arrived Start: 07-16-2022 End: 07-16-[address] JANIYA RAYGOZA Facility:[facility] Start: 06-18-2022 End: 06-19-[address] ARLEY WITT Facility:[facility] Start: 05-29-2022 End: 05-30-[address] MAKSIM ALFARO Facility:[facility] Start: 04-22-2022 End: 04-22-[address] JANIYA RAYGOZA Facility:[facility] Start: 10-29-2021 End: 10-29-[address] JANIYA RAYGOZA Facility:[facility] Procedures Date Procedure Procedure Detail Performing Clinician Start: 04-15-2025 Hemoglobin glycosylated a1c Janiya Raygoza MD Work Phone: Start: 04-15-2025 H/O: hysterectomy H/O: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 care provider. Make sure you discuss any questions you have with your health care provider. Document Revised: 01/28/2023 Document Reviewed: 01/28/2023 [employer] Patient Education 2022 [employer]. Follow Up Care 05/22/2024 20:11:08 With:JANIYA RAYGOZA Address: [address] [place], [place] [id number] Business (1) When:Within 3 Day(s) [facility] 05-23-2024 Note ED Patient Education Note Mental and Behavioral Health Alcohol Intoxication Alcohol intoxication occurs when a person no longer thinks clearly or functions well after drinking alcohol. This is also referred to as becoming impaired. Intoxication can occur with just one drink. The legal definition of alcohol intoxication depends on the amount of alcohol in the blood (blood alcohol concentration, TERESITA). TERESITA of 80?100 mg/dL or higher is commonly considered legally intoxicated. The level of impairment depends on: ? The amount of alcohol the person had. ? The person's age, gender, and weight. ? How often the person drinks. ? Whether the person has other medical conditions, such as diabetes, seizures, or a heart condition. Alcohol intoxication can range from mild to severe. The condition can be dangerous, especially if the person: ? Also took certain drugs or prescription medicines. ? Drinks a large amount of alcohol in a short period of time (binge drinks). ? For women, binge drinking is having four or more drinks at one time. ? For men, binge drinking is having five or more drinks at one time. If you or anyone around you appears intoxicated, speak up and act. What are the causes? This condition is caused by drinking alcohol. What increases the risk? The following factors may make you more likely to develop this condition: ? Peer pressure in young adults. ? Difficulty managing stress. ? History of drug or alcohol abuse. ? Family history of drug or alcohol abuse. ? Combining alcohol with drugs. ? Low body weight. ? Binge drinking. What are the signs or symptoms? Symptoms of alcohol intoxication can vary from person to person. Symptoms can be mild, moderate, or severe. Symptoms of mild alcohol intoxication may include: ? Feeling relaxed or sleepy. ? Having mild difficulty with coordination, speech, memory, or attention. Symptoms of moderate alcohol intoxication may include: ? Strong anger or extreme sadness. ? Moderate difficulty with coordination, speech, memory, or attention. Symptoms of severe alcohol intoxication may include: ? Severe difficulty with coordination, speech, memory, or attention. ? Passing out. ? Vomiting. ? Confusion. ? Slow breathing. ? Coma. Intoxication can change quickly from mild to severe. It can cause coma or , especially in people who do not drink alcohol often. How is this diagnosed? Your health care provider will ask you how much alcohol you drank and what kind you had. Intoxication may also be diagnosed based on: ? Your symptoms and medical history. ? A physical exam. ? A blood test that measures TERESITA. ? A smell of alcohol on your breath. How is this treated? Treatment for alcohol intoxication may include: ? Being monitored in an emergency department, hospital, or treatment center until your TERESITA comes down and it is safe for you to go home. ? IV fluids to prevent or treat loss of fluid in the body (dehydration). ? Medicine to treat nausea or vomiting or to get rid of alcohol in the body. ? Counseling about the dangers of using alcohol. ? Treatment for substance use disorder. ? Oxygen therapy or a breathing machine (ventilator). Drinking alcohol for a long time can have long-term effects on your brain, heart, and digestive system. These effects can be serious and may also require treatment. Follow these instructions at home: Eating and drinking ? Do not drink alcohol if: ? Your health care provider tells you not to drink. ? You are , may be , or are planning to become . ? You are under the legal drinking age, or under 21 years old in the [place] ? You are taking medicines that should not be taken with alcohol. ? You have a medical condition, and alcohol makes it worse. ? You need to drive or perform activities that require you to be alert. ? You have substance use disorder. ? Ask your health care provider if alcohol is safe for you. If your health care provider allows you to drink alcohol, limit how much you have to: ? 0?1 drink a day for women who are not . ? 0?2 drinks a day for men. ? Know how much alcohol is in your drink. In the [place] one drink equals one 12 oz bottle of beer (355 mL), one 5 oz glass of wine (148 mL), or one 1? oz glass of hard liquor (44 mL). ? Avoid drinking alcohol on an empty stomach. ? Alcohol increases urination. It is important to stay hydrated and avoid caffeine. ? Avoid drinking more than one drink per hour. ? When having multiple drinks, drink water or a non-alcoholic beverage between alcoholic drinks. General instructions ? Take [id number]-[id number] and prescription medicines only as told by your health care provider. ? Do not drive after drinking any amount of alcohol. Plan for a designated maintenance truck driver or another way to go home. ? Have someone responsible stay with you while you are intoxicated. You shoul (more content not included)... [facility] 05-22-2024 Evaluation + Plan note Extrac marissa from: Title:ED Note Author:Hernandez Acosta DO Date :05/22/24 Acute alcohol intoxication ( F10.929: Alcohol use, unspecified with intoxication, unspecified) Orders: hydrOXYzine, 25 mg = 1 tab(s), Tab, Oral, Once, Stop date 05/22/24 21:16:00 EDT, STAT, Start date 05/22/24 21:16:00 EDT, 05/22/24 21:16:00 EDT nicotine, 21 mg, 1 patch(es), Patch-ER, TransDermal, Once, Stop date 05/22/24 21:16:00 EDT, STAT, Start date 05/22/24 21:16:00 EDT [facility]04-16-2024 Hospital Discharge instructions Patient Education 03/10/2024 14:47:54 Sutured Wound Care, [id number] Sutured Wound Care Sutures are stitches that can be used to close wounds. Some stitches break down as they heal (absorbable). Other stitches need to be taken out by your doctor (nonabsorbable). Taking good care of yourwound can help to prevent pain and infection. It can also help your wound heal more quickly. Followinstructions from your doctor about how to care for your sutured wound. Supplies needed: Soap and water. A clean, dry towel. Solution to clean your wound, if needed. A clean gauze or bandage (dressing), if needed. Antibiotic ointment, if told by your doctor. How to care for your sutured wound Keep the wound fully dry for the first 24 hours or as long as told by your doctor. After 24 48 hours, you may shower or bathe as told by your doctor. Do not soak the wound or put the wound under water until the stitches have been taken out. After the first 24 hours, clean the wound once a day, or as often as your doctor tells you to. Takethese steps: ?Wash and rinse the wound as told by your health care provider. ?Pat the wound dry with a clean towel. Do not rub the wound. After cleaning the wound, put a thin layer of antibiotic ointment on the wound as told by your doctor. This will help: ?Prevent infection. ?Keep the bandage from sticking to the wound. Follow instructions from your doctor about how to change your bandage. Make sure you: ?Wash your hands with soap and water for at least 20 seconds. If you cannot use soap and water, usehand cylinder tester. ?Change your bandage at least once a day, or as often as told by your doctor. If your dressing getswet or dirty, change it. ?Leavestitches in place for at least 2 weeks. If you have skin glue over your stitches, this shouldalso stay in place for at least 2 weeks. ?Leave tape strips alone (if you have them) unless you are told to take them off. You may trim the edges of the tape strips if they curl up. Check your wound every day for signs of infection. Watch for: ?Redness, swelling, or pain. ?Fluid or blood. ?New warmth, a rash, or hardness at the wound site. ?Pus or a bad smell. Have the stitches taken out as told by your doctor. Follow these instructions at home: Medicines Take or apply zsqq-oxc-jnaytgq and prescription medicines only as told by your doctor. If you were prescribed an antibiotic medicine or ointment, take or apply it as told by your doctor.Do not stop using the antibiotic even if you start to feel better. General instructions Cover your wound with clothes or put sunscreen on when you are outside. Use a sunscreen of at least30 SPF. Do not scratch or pick at your wound. Avoid stretching your wound. Raise the injured area above the level of your heart while you are sitting or lying down, if possible. Eat a diet that includes protein, vitamin A, and vitamin C. Doing this will help your wound heal. Drink enough fluid to keep your pee (urine) pale yellow. Keep all follow-up visits. Contact a doctor if: You were given a tetanus shot and you have any of the following at the site where the needle went in: ?Swelling. ?Very bad pain. ?Redness. ?Bleeding. Your wound breaks open. You see something coming out of your wound, such as wood or glass. You have any of these signs of infection in or around your wound: ?Redness, swelling, or pain. ?Fluid or blood. ?Warmth. ?A new rash. Your wound feels hard. You have a fever. The skin near your wound changes color. You have pain that does not get better with medicine. You get numbness around the wound. Get help right away if: You have very bad swelling or more pain around your wound. You have pus or a bad smell coming from your wound. You have painful lumps near your wound or anywhere on your body. You have a red streak going away from your wound. The wound is on your hand or foot, and: ?Your fingers or toes look pale or blue. ?You cannot move a finger or toe as you used to do. ?You have numbness that spreads down your hand, foot, fingers, or toes. Summary Sutures are stitches that are used to close wounds. Taking good care of your wound can help to prevent pain and infection. Keep the wound fully dry for the first 24 hours or for as long as told by your doctor. After 24 48 hours, you may shower or bathe as told by your doctor. This information is not intended to replace advice given to you by your health care provider. Make sure you discuss any questions you have with your health care provider. Document Revised: 03/19/2022 Document Reviewed: 03/19/2022 [employer] Patient Education 2022 [employer]. 03/10/2024 14:47:54 Puncture Wound, Vhin-wa-Ubsz Puncture Wound A puncture wound is an injury that is caused by a sharp, thin object that goes through your skin. Apuncture wound usually does not leave a large opening in your skin, so it may not bleed a lot. However, when you get a puncture wound, dirt or other materials (foreign bodies) can be forced into yourwound and can break off inside. This increases the chance of infection, such as tetanus. There are many sharp, pointed objects that can cause puncture wounds, including teeth, nails, splinters of glass, fishhooks, and needles. Treatment may include the following steps: Washing out the wound with a germ-free (sterile) salt-water solution. Having surgery to open the wound and remove materials from it. Your wound may be: Closed with stitches (sutures). Covered with antibiotic ointment and a bandage (dressing). Depending on what caused the injury, you may also need a tetanus shot or a rabies shot. Follow these instructions at home: Medicines Take or apply quvg-acq-omilbyt and prescription medicines only as told by your doctor. If you were prescribed antibiotics, take or apply them as told by your doctor. Do not stop using them even if you start to feel better. Bathing Keep the bandage dry as told by your doctor. Do not take baths, swim, or use a hot tub. Ask your doctor about taking showers or sponge baths. Wound care Follow instructions from your doctor about how to take care of your wound. Make sure you: ?Wash your hands with soap and water for at least 20 seconds before and after you change your bandage. If you cannot use soap and water, use hand cylinder tester. ?Change your bandage. ?Leave stitches or skin glue in place for at least 2 weeks. ?Leave tape strips alone unless you are told to take them off. You may trim the edges of the tape strips if they curl up. Clean the wound as told by your doctor. Do not scratch or pick at the wound. Check your wound every day for signs of infection. Watch for: ?Redness, swelling, or pain. ?Fluid or blood. ?Warmth. ?Pus or a bad smell. General instructions Raise (elevate) the injured area above the level of your heart while you are sitting or lying down. If your puncture wound is in your foot, ask your doctor if you need to avoid putting weight on yourfoot and for how long. Use crutches as told by your doctor. Keep all follow-up visits. Contact a doctor if: You got a tetanus shot and you have any of these problems at the injection site: ?Swelling. ?Very bad pain. ?Redness. ?Bleeding. You have any of these signs of infection in your wound area: ?Redness, swelling, or pain. ?Fluid or blood. ?Warmth. ?Pus or a bad smell. You have a fever. Your stitches come out. You notice something coming out of the wound, such as wood or glass. Medicine does not help your pain. You start to lose feeling (have numbness) around the wound. Get help right away if: You have very bad swelling around the wound. You have a red streak going away from your wound. You start to get painful skin lumps. The wound is on your hand or foot and you: ?Cannot move a finger or toe like normal. ?Notice that your fingers or toes look pale or blue. Summary A puncture wound is an injury that is caused by a sharp, thin object that goes through your skin. Treatment may include washing out the wound and having surgery to open the wound to clean it. Follow instructions from your doctor about how to take care of your wound. Contact your doctor if you have more redness, swelling, or pain at the site of your wound. This information is not intended to replace advice given to you by your health care provider. Make sure you discuss any questions you have with your health care provider. Document Revised: 12/12/2022 Document Reviewed: 12/12/2022 [employer] Patient Education 2022 [employer]. Follow Up Care 03/10/2024 13:24:59 With:JANIYA RAYGOZA Address: [address] [place] [address] Business (1) When:03/13/2024 14:43:45 [facility]03-27-2024 Evaluation + Plan noteExtracted from: Title:ED Note Author:Errol JEWELL, Pedro Rogers te:02/19/24 Asthma exacerbation (J45.901 : Unspecified asthma with (acute) exacerbation) Orders: albuterol-ipratropium, 3 mL, Soln-Inh, Inhalation, Once, Stop date 02/19/24 10:18:00 EDT, STAT, Start date 02/19/24 10:18:00 EDT predniSONE, 50 mg = 1 tab(s), Oral, Daily, X 7 day(s), # 7 tab(s), Refills(s) 0 XR Chest Single View [facility]03-27-2024 Hospital Discharge instructions Patient Education 02/19/2024 11:07:09 Asthma, Adult, Bive-zu-Pwmb Asthma, Adult Asthma is a condition that causes swelling and narrowing of the airways. These are the passages that lead from the nose and mouth down into the lungs. When asthma symptoms get worse it is called an asthma attack or flare. This can make it hard to breathe. Asthma flares can range from minor to life-threatening. There is no cure for asthma, but medicines and lifestyle changes can help to control it. What are the causes? It is not known exactly what causes asthma, but certain things can cause asthma symptoms to get worse (triggers). What can trigger an asthma attack? Cigarette smoke. Mold. Dust. Your pet's skin flakes (dander). Cockroaches. Pollen. Air pollution (like household fisher lampara net, wood smoke, smog, or chemical odors). What are the signs or symptoms? Trouble breathing (shortness of breath). Coughing. Making high-pitched whistling sounds when you breathe, most often when you breathe out (wheezing). Chest tightness. Tiredness with little activity. Poor exercise tolerance. How is this treated? Controller medicines that help prevent asthma symptoms. Fast-acting reliever or rescue medicines. These give short-term relief of asthma symptoms. Allergy medicines if your attacks are brought on by allergens. Medicines to help control the body's defense (immune) system. Staying away from the things that cause asthma attacks. Follow these instructions at home: Avoiding triggers in your home Do not allow anyone to smoke in your home. Limit use of fireplaces and wood stoves. Get rid of pests (such as roaches and mice) and their droppings. Keep your home clean. ?Clean your floors. Dust regularly. Use cleaning products that do not smell. ?Wash bed sheets and blankets every week in hot water. Dry them in a dryer. ?Have someone vacuum when you are not home. ?Change your heating and air conditioning filters often. Use blankets that are made of polyester or cotton. General instructions Take grhd-xch-qvjcadm and prescription medicines only as told by your doctor. Do not smoke or use any products that contain nicotine or tobacco. If you need help quitting, ask your doctor. ?Stay away from secondhand smoke. Avoid doing things outdoors when allergen counts are high and when air quality is low. Warm up before you exercise. Take time to cool down after exercise. Use a peak flow meter as told by your doctor. A peak flow meter is a tool that measures how well your lungs are working. ?Keep track of the peak flow meter's readings. Write them down. Follow your asthma action plan. This is a written plan for taking care of your asthma and treating your attacks. Make sure you get all the shots (vaccines) that your doctor recommends. Ask your doctor about a flushot and a pneumonia shot. Keep all follow-up visits. Contact a doctor if: You have wheezing, shortness of breath, or a cough even while taking medicine to prevent attacks. The mucus you cough up (sputum) is thicker than usual. The mucus you cough up changes from clear or white to yellow, green, miguel, or is bloody. You have problems from the medicine you are taking, such as: ?A rash. ?Itching. ?Swelling. ?Trouble breathing. You need reliever medicines more than 2 3 times a week. Your peak flow reading is still at 50 79% of your personal best after following the action plan for1 hour. You have a fever. Get help right away if: You seem to be worse and are not responding to medicine during an asthma attack. You are short of breath even at rest. You get short of breath when doing very little activity. You have trouble eating, drinking, or talking. You have chest pain or tightness. You have a fast heartbeat. Your lips or fingernails start to turn blue. You are light-headed or dizzy, or you faint. Your peak flow is less than 50% of your personal best. You feel too tired to breathe normally. These symptoms may be an emergency. Get help right away. Call 911. Do not wait to see if the symptoms will go away. Do not drive yourself to the hospital. Summary Asthma is a long-term (chronic) condition in which the airways get tight and narrow. An asthma attack can make it hard to breathe. Asthma cannot be cured, but medicines and lifestyle changes can help control it. Make sure you understand how to avoid triggers and how and when to use your medicines. Avoid things that can cause allergy symptoms (allergens). These include animal skin flakes (dander)and pollen from trees or grass. Avoid things that pollute the air. These may include household fisher lampara net, wood smoke, smog, or chemical odors. This information is not intended to replace advice given to you by your health care provider. Make sure you discuss any questions you have with your health care provider. Document Revised: 08/20/2022 Document Reviewed: 08/20/2022 [employer] Patient Education 2022 [employer]. 02/19/2024 11:07:09 Asthma Attack Prevention, Adult Asthma Attack Prevention, Adult Although you may not be able to change the fact that you have asthma, you can take actions to prevent episodes of asthma (asthma attacks). How can this condition affect me? Asthma attacks (flare ups) can cause trouble breathing, high-pitched whistling sounds when you breathe, most often when you breathe out (wheeze), and coughing. They may keep you from doing activitiesyou like to do. What can increase my risk? Coming into contact with things that cause asthma symptoms (asthma triggers) can put you at risk for an asthma attack. Common asthma triggers include: Things you are allergic to (allergens), such as: ?Dust mite and cockroach droppings. ?Pet dander. ?Mold. ?Pollen from trees and grasses. ?Food allergies. This might be a specific food or added chemicals called sulfites. Irritants, such as: ?Weather changes including very cold, dry, or humid air. ?Smoke. This includes campfire smoke, air pollution, and tobacco smoke. ?Strong odors from aerosol sprays and fumes from perfume, candles, and household fisher lampara net. Other triggers, such as: ?Certain medicines. This includes NSAIDs, such as ibuprofen and aspirin. ?Viral respiratory infections (colds), including runny nose (rhinitis) or infection in the sinuses (sinusitis). ?Activity, including exercise, laughing, or crying. ?Not using inhaled medicines (corticosteroids) as told. What actions can I take to prevent an asthma attack? Stay healthy. Stay up to date on all immunizations as told by your health care provider, including the yearly flu (influenza) vaccine and pneumonia vaccine. Many asthma attacks can be prevented by carefully following your written asthma action plan. Follow your asthma action plan Work with your health care provider to create a written asthma action plan. This plan should include: A list of your asthma triggers and how to avoid or reduce them. A list of symptoms that you may have during an asthma attack. Information about which medicine to take, when to take the medicine, and how much of the medicine to take. Information to help you understand your peak flow measurements. Daily actions that you can take to prevent (control) your asthma symptoms. Contact information for your health care providers. If you have an asthma attack, act quickly. Follow the emergency steps on your written asthma actionplan. This may prevent you from needing to go to the hospital. Monitor your asthma. To do this: Use your peak flow meter every morning and every evening for 2 3 weeks or as told by your health care provider. ?Record the results in a journal. ?A drop in your peak flow numbers on one or more days may mean that you are starting to have an asthma attack, even if you are not having symptoms. When you have asthma symptoms, write them down in a journal. Write down in your journal how often you need to use your fast-acting rescue inhaler. If you are using your rescue inhaler more often, it may mean that your asthma is not under control. Talk with your health care provider about adjusting your asthma treatment plan to help you prevent future asthma attacks and gain better control of your condition. Lifestyle Avoid or reduce contact with known outdoor allergens by staying indoors, keeping windows closed, and using air conditioning when pollen and mold counts are high. Do not use any products that contain nicotine or tobacco. These products include cigarettes, chewing tobacco, and vaping devices, such as e-cigarettes. If you need help quitting, ask your health careprovider. If you are overweight, consider a weight-loss plan. Find ways to cope with stress and your feelings, such as mindfulness, relaxation, or breathing exercises. Ask your health care provider if a breathing exercise program (pulmonary rehabilitation) may be helpful to control symptoms and improve your quality of life. Medicines Take dfxh-rgt-uxmlbnt and prescription medicines only as told by your health care provider. Do not stop taking your medicine and do not take less medicine even if you start to feel better. Let your health care provider know: ?How often you use your rescue inhaler. ?How often you have symptoms when you are taking your regular medicines. ?If you wake up at night because of asthma symptoms. ?If you have more trouble with your breathing when you exercise. Activity Do your normal activities as told by your health care provider. Ask your health care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 Nallely Larose PA [address] [place] [phone] PCP - [facility] 11/25/24 Virginia Line Attendant Relationship Specialty Start Date End Date Janiya Raygoza MD [address] [facility] [place] [address] PCP - General 06/26/16 [place] Line Attendant Relationship Specialty Start Date End Date Janiya Raygoza MD [address] [facility] [place] [address] PCP - General 06/26/16 [place] Line Attendant Relationship Specialty Start Date End Date Janiya Raygoza MD [address] [facility] [place] [address] PCP - General Family Medicine 12/02/23 Nallely Larose PA [address] [place] [phone] PCP - [facility] 11/25/24 Virginia Line Attendant Relationship Specialty Start Date End Date Janiya Raygoza MD [address] [place] [address] PCP - General Family Medicine 12/02/23 Nallely Larose PA [address] [place] [phone] PCP - [facility] 11/25/24 Danilo Murcia, [employer] [address] [place] [address], [place] [address] Licensed Practical Nurse Family Medicine 05/11/25 [place] Line Attendant Relationship Specialty Start Date End Date Janiya Raygoza MD [address] [place] [address] PCP - General Family Medicine 12/02/23 Nallely Larose PA [address] [place] [address] PCP - [facility] 11/25/24 Danilo Murcia LPN [address] [place] [address] Licensed Practical Nurse Family Medicine 05/11/25 [place] Line Attendant Relationship Specialty Start Date End Date Janiya Raygoza MD [address] [place] [address] PCP - General Family Medicine 12/02/23 Nallely Larose PA [address] [place] [address] PCP - [facility] 11/25/24 Danilo Murcia, [employer] [address] [place] [address], [place] [address] Licensed Practical Nurse Family Medicine 05/11/25 [place] Line Attendant Relationship Specialty Start Date End Date Janiya Raygoza MD [address] [place] [address] PCP - General Family Medicine 12/02/23 Nallely Larose PA [address] [place] [phone] PCP - [facility] 11/25/24 Danilo Murcia LPN [address] [place] [address] Licensed Practical Nurse Family Medicine 05/11/25 [place] Line Attendant Relationship Specialty Start Date End Date Janiya Raygoza MD [address] [place] [address] PCP - General Family Medicine 12/02/23 Nallely Larose PA [address] [place] [phone] PCP - [facility] 11/25/24 Mamta Mir, [facility] [address] [place] [address] [employer] Worker Family Medicine 05/20/25 Jennifer Murrell LPN Licensed Practical Nurse Family Medicine 05/21/25 [place] Line Attendant Relationship Specialty Start Date End Date Janiya Raygoza MD [address] [place] [address] PCP - General Family Medicine 12/02/23 Nallely Larose PA [address] [place] [phone] PCP - [facility] 11/25/24 Mamta Mir, [facility] [address] [place] [address] [employer] Worker Family Medicine 05/20/25 Jennifer Murrell LPN Licensed Practical Nurse Family Medicine 05/21/25 [place] Line Attendant Relationship Specialty Start Date End Date Janiya Raygoza MD [address], [place] [phone] PCP - General Family Medicine 12/02/23 Nallely Larose PA [address] [place] [address] PCP - [facility] 11/25/24 Mamta Mir LSW [address] [place], [place] [phone] [employer] Worker Family Medicine 05/20/25 Jennifer Murrell LPN Licensed Practical Nurse Family Medicine 05/21/25 FOR RECORDS PERTAINING TO PATIENTS WHO ARE OR HAVE BEEN ENROLLED IN A CHEMICAL DEPENDENCY/SUBSTANCEABUSE PROGRAM, SOME INFORMATION MAY BE OMITTED. This clinical summary was aggregated from multiple sources. Caution should be exercised in using it in the provision of clinical care. This summary normalizes information from multiple sources, and as a consequence, information in this document may materially change the coding, format and clinical context of patient data. In addition, data may be omitted in some cases. CLINICAL DECISIONS SHOULD BE BASED ON THE PRIMARY CLINICAL RECORDS. [facility] [employer] [facility]. provides no warranty or guarantee of the accuracy or completeness of information in this document.
== END 2025-09-07 15:57 | disposition home or self-care (01) ==
LOC: MRI 15:56
PROVIDERS: PCP Family Medicine
DX: M54.42 Lumbago with sciatica, left side (principal); M54.41 Lumbago with sciatica, right side; G89.29 Other chronic pain; M51.369 Other intervertebral disc degeneration, lumbar region without mention of lumbar back pain or lower extremity pain
CPT/HCPCS: 72158; A9575

== ENCOUNTER 2025-09-27 13:01 | Outpatient (OUT) | payer OTHER, SELFPAY ==
--- OUTSIDE RECORDS SUMMARY | 2025-09-27 13:04 | XMS_ITS | Clinical Summary ---
Author Organization [facility] Address [address] [facility] [address] [place] [address] Care Team Providers Care Rubber Molder Name Role Phone Unavailable Primary Care Provider Unavailabl e Source Comments The following information is NOT included in Care Everywhere downloads:Psychiatric notes, ECG results, Cardiac Rehab notes, Pulmonary Function notes, data from SmartForms (includes but not limited toPregnancy data,audiograms, eye exams, pre-surgical evaluation notes, well-child exam data).[facility] Social History Tobacco UseTypesPacks/DayYears UsedDateSmoking Tobacco: Never Assessed CommentsUnknownSex and Gender InformationValueDate RecordedSex Assigned at Not on fileLegal TqxNnvift78/31/2022 3:43 AM ESTGender IdentityNot on fileSexual OrientationNot on file Last Filed Vital Signs Vital SignReadingTime TakenCommentsBlood Bocxzmmb480/7210/31/2022 1:15 PM EST Wcvbl601310/31/2022 1:15 PM ESTTemperature--Respiratory Jbvr714201/01/2022 1:15 PM ESTOxygen Bffnqdvdtf08%10/31/2022 1:15 PM ESTInhaled Oxygen Concentration-- Weight--Height--Body Mass Index-- Plan of Treatment Health MaintenanceDue DateLast DoneCommentsMammography (shared decision-making, age 35-39)1989HIV Test2004Hepatitis C Rhztonzj24/01/2007Tdap Booster 2007Hepatitis A (HAV) Vaccine (optional start 19+ years)2008 Hepatitis B (HBV) Vaccine (1 of 3 - 19+ 3-dose series)2008Pap Smear 2010HPV Vaccine (optional start 27-45 years)2016COVID-19 Vaccine (2024- season)2025Influenza Vaccine (#1)2025Shingles (RZV) Vaccine (1 of 2)2039MammographyDiscontinuedPneumococcal Vaccine(s)Aged Out No longer eligible based on patient's age to complete this topic
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
--- OUTSIDE RECORDS SUMMARY | 2025-09-27 13:04 | XMS_ITS | Clinical Summary ---
Author Organization [facility] Address [address] [place] [address] Phone Care Team Providers Care Education And Training Manager Name Role Phone Janiya Raygoza MD Primary Care Provider [phone] Social History Tobacco UseTypesPacks/DayYears UsedDateSmoking Tobacco: Never Assessed CommentsUnknownSex and Gender InformationValueDate RecordedSex Assigned at Not on fileLegal KheVaeofs50/25/2022 9:48 PM ESTGender IdentityNot on fileSexual OrientationNot on file Last Filed Vital Signs Vital SignReadingTime TakenCommentsBlood Kwnpqarm006/8201/03/2023 2:50 PM EST Ahomo288401/03/2023 2:50 PM ESTTemperature--Respiratory Ugon906601/03/2023 2:50 PM ESTOxygen Saturation--Inhaled Oxygen Concentration--Ozmpvh20.2 kg (146 lb) 01/03/2023 2:50 PM FDNJycccc287.6 cm (5' 4 )01/03/2023 2:50 PM ESTBody Mass Index25.0601/03/2023 2:50 PM EST Plan of Treatment Health MaintenanceDue DateLast DoneCommentsHIV Vfgihmlsf1989Lipid Panel 1990Yearly Adult Ryqfopdk1989MMR Vaccines (1 of 1 - Standard series) 1990Hepatitis C Zjtlulibf61/01/2007Hepatitis B Vaccines (1 of 3 - 19+ 3- dose series)2008Pneumococcal Vaccine: Pediatrics and At-Risk Adult Patients (1 of 2 - PCV)2008Cervical Cancer Wjlyeqoqd69/01/2010HPV/Cotest 2010Pap Smear2010DTaP/Tdap/Td Vaccines (1 - Tdap)2011HPV Vaccines (1 - 3-dose standard series)2016Influenza Vaccine (#1)2025 COVID-19 Vaccine (1 - 2024- season)2025Diabetes Fjbtmiqiv12/10/2026 02/01/2023Zoster Vaccines (1 of 2)2039HIB VaccinesAged OutNo longer eligible based on patient's age to complete this topicHepatitis A VaccinesAged OutNo longer eligible based on patient's age to complete this topicIPV Vaccines Aged OutNo longer eligible based on patient's age to complete this topic Meningococcal VaccineAged OutNo longer eligible based on patient's age to complete this topicRotavirus VaccinesAged OutNo longer eligible based on patient's age to complete this topic Procedures Procedure NamePriorityDate/TimeAssociated DiagnosisCommentsCOMPREHENSIVE METABOLIC CMXTGHqkiney03/10/2023 9:40 AM EST from Last 3 Months or Most Recently Relevant to Health Maintenance Results * Comprehensive Metabolic Panel (02/01/2023 9:40 AM EST)ComponentValueRef Range Test MethodAnalysis TimePerformed AtPathologist DdgkuoxtiFtqzehc8837 - 99 mg/[facility] ITBRjzqia178707 - 145 mmol/[facility] LABPotassium3.63.5 - 5.3 mmol/[facility] LYFApuaxatp870 98 - 107 mmol/[facility] LWJXhayhhfzwrc9724 - 32 mmol/L [facility] LABAnion Qky6569 - 20 mmol/[facility] LABUrea Xzkvjrvq46 - 23 mg/[facility] LABCreatinine0.640.50 - 1.05 mg/[facility] LABGFR Female>90>90 mL/min/1.93h0WUQMVCLURELLIS [facility]LAND [facility] LABComment: CALCULATIONS OF ESTIMATED GFR ARE PERFORMED USING THE 2020 CKD-EPI STUDY REFIT EQUATION WITHOUT THE RACE VARIABLE FOR THE IDMS-TRACEABLE CREATININE METHODS. https://jasn.asnjournals.org/content//ASN.3558367463 Calcium9.28.6 - 10.3 mg/[facility] LABAlbumin4.33.4 - 5.0 g/dL [facility] LABAlkaline Uiwmjqkoxvz1013 - 110 U/[facility] LABTotal Protein6.66.4 - 8.2 g/[facility] YVOQEX600 - 39 U/[facility] LABTotal Bilirubin0.60.0 - 1.2 mg/[facility] LABALT (SGPT)127 - 45 U/[facility] LABComment: Patients treated with Sulfasalazine may generate falsely decreased results for ALT. Specimen (Source)Anatomical Location / LateralityCollection Method / Volume Collection TimeReceived Time02/01/2023 9:40 AM EST02/01/2023 10:33 AM EST Narrative Authorizing ProviderResult TypeResult StatusDale Efren Troncoso DOL BLOOD ORDERABLES Final ResultPerforming OrganizationAddressCity/State/ZIP CodePhone Number [facility] [address] [place] [address] from Last 3 Months or Most Recently Relevant to Health Maintenance Insurance [address] [place] [id number] Care Teams Team MemberRelationshipSpecialtyStart DateEnd Janiya Raygoza MD [address] [place] [address] PCP - General01/03/23
--- OUTSIDE RECORDS SUMMARY | 2025-09-27 13:04 | XMS_ITS | Patient Health Record ---
Author Organization [facility] Address [address] [place] [address] Care Team Providers Care Food Specialist Name Role Phone Abdon King Unavailable [phone] Allergies No Known Allergies Reason For Referral No Information Social History Tobacco Use: Social History Observation Description Date Details (start date - stop date) Current Smoker NA - NA Smoking History Question Answer Notes Smoking Status Current Smoker Plan Of Treatment Pending Test Test Name Order Date Crutches OTS 10/28/2023 DME - Walking Boot, Fracture/Pnuematic O TS 10/28/2023 Insurance Providers Payer Name Payer Address Payer Phone Subscriber Number Group Number Insured Name Patient Relationship to Insured Coverage Start Date Coverage End Date Medicaid [employer] [place] [address] [place] [address] [id number] [place] AMADO SALMON Self - patient is the insured Medical (General) History Medical History History ICD Code Asthma/COPD Respiratory problems:GI Problems:
--- OUTSIDE RECORDS SUMMARY | 2025-09-27 13:04 | XMS_ITS | Patient Health Record ---
Author Organization [facility] [place] Address [address] [place] [address] Care Team Providers Care Hand Wrapper Operator Name Role Phone Idalmis BISWAS, Janiya Primary Care Provider Unavailabl e Reason For Referral No Information Plan Of Treatment Pending Test Test Name Order Date XR Lumbar Spine (2-3 views) * 03/15/2022 Insurance Providers Payer Name Payer Address Payer Phone Subscriber Number Group Number Insured Name Patient Relationship to Insured Coverage Start Date Coverage End Date [employer] MEDICARE [address] [address] [place], [place] [id number] ACUO Shirin Burgos Self - patient is the insured 2
--- OUTSIDE RECORDS SUMMARY | 2025-09-27 13:20 | XMS_ITS | CCD ---
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 Sebastian Ryees MDHemoglobin (Bld) [Mass/Vol]14.7 g/dLNormal 12.0-16.0A[facility] Fayette Medical CenterComment on above:Performed By: #### TROPI, LIP, CP, CDP #### [facility] Lab [address] [place] [address] Sawdust Machine Operator: Sebastian Reyes MDImmature granulocytes/100 WBC (Bld)0 %Normal0-5 [facility]ayette Medical CenterComment on above:Performed By: #### TROPI, LIP, CP, CDP #### [facility] Lab [address] [phone] Sawdust Machine Operator: Mariely Dossmphocytes (Bld) [#/Vol]3.05 10*3/uLNormal 1.00-4.80A[facility] Fayette Medical CenterComment on above:Performed By: #### TROPI, LIP, CP, CDP #### [facility] Lab [address] [place] [address] Sawdust Machine Operator: Mariely Dossmphocytes/100 WBC (Bld)26 %Cpgyej04-80JpxhiAdena Fayette Medical CenterComment on above:Performed By: #### TROPI, LIP, CP, CDP #### [facility] Lab [address] [phone] Sawdust Machine Operator: ZULLY DossCH (RBC) [Entitic mass]33.5 frYqobjp53.0-34.0 [facility] Medical CenterComment on above:Performed By: #### TROPI, LIP, CP, CDP #### [facility] Lab [address] [place] [address] Sawdust Machine Operator: ZULLY DossCHC (RBC) [Mass/Vol]35.3 g/sGJddnsr62.0-37.0A[facility] Medical CenterComment on above:Performed By: #### TROPI, LIP, CP, CDP #### [facility] [address] [phone] Sawdust Machine Operator: ZULLY DossCV (RBC) [Entitic vol]95.0 lQByfnoy33.0-100.0 [facility] CenterComuniversity of mich[facility] health on above:Performed By: #### TROPI, LIP, CP, CDP #### [facility] [address] [place] [address] Sawdust Machine Operator: ZULLY Dossonocytes (Bld) [#/Vol]0.60 10*3/uLNormal0.00-1.00 [facility] Medical CenterComuniversity of [facility] health on above:Performed By: #### TROPI, LIP, CP, CDP #### [facility] [address] [phone] Sawdust Machine Operator: ZULLY Dossonocytes/100 WBC (Bld)5 %Normal4-8Aden[facility] Fayette Medical CenterComment on above:Performed By: #### TROPI, LIP, CP, CDP #### [facility] [address] [place] [address] Sawdust Machine Operator: Sebastian Reyes MDNeutrophil (Seg)68 %Wyojfk58-34XmjonAdena Fayette Medical CenterComment on above:Performed By: #### TROPI, LIP, CP, CDP #### [facility] [address] [phone] Sawdust Machine Operator: GEOVANNY Dosslatelet mean volume (Bld) [Entitic vol]9.6 fL Normal6.0-12.0A[facility] Fayette Medical CenterComment on above:Performed By: #### TROPI, LIP, CP, CDP #### [facility] [address] [place], [place] [id number] Sawdust Machine Operator: Ashlie Doss ([facility]) [#/Vol]323 10*3/vCLnhxcm378-824 [facility] Medical CenterComment on above:Performed By: #### TROPI, LIP, CP, CDP #### [facility] [address] [place] [address] Sawdust Machine Operator: DAGOBERTO Doss ([facility]) [#/Vol]4.39 10*6/uLNormal4.00-5.20A[facility] Medical CenterComment on above:Performed By: #### TROPI, LIP, CP, CDP #### [facility] [address] [place] [address] Sawdust Machine Operator: OPAL Doss ([facility]) [#/Vol]11.7 10*3/uLHigh3.5-11.0A[facility] Medical CenterComment on above:Performed By: #### TROPI, LIP, CP, CDP #### [facility] [address] [place] [address] Sawdust Machine Operator: Lee Doss Metabolic Profon [id number] [Mass/Vol] 4.1 g/dLNormal3.5-5.2MMercy Health St. Anne HospitalComment on above:Performed By: #### TROPI, LIP, CP, CDP #### [facility] Lab [address] [place], [place] [id number] Sawdust Machine Operator: Rio Doss Phos73 U/OAaknbs48-123KsrybAdena Fayette Medical CenterComment on above:Performed By: #### TROPI, LIP, CP, CDP #### [facility] [address] [place] [address] Sawdust Machine Operator: Sebastian Reyes MDALT [Catalytic activity/Vol]14 U/LNormal5-33A[facility] Medical CenterComuniversity of mich[facility] health on above:Performed By: #### TROPI, LIP, CP, CDP #### [facility] [address] [place] [address] Sawdust Machine Operator: Sebastian Reyes MDAnion gap [Moles/Vol]17 mmol/LNormal9-17A[facility] Fayette Medical CenterComment on above:Performed By: #### TROPI, LIP, CP, CDP #### [facility] [address] [place] [address] Sawdust Machine Operator: Sebastian Reyes MDAST [Catalytic activity/Vol]14 U/LNormal<32MerZucker Hillside HospitalComment on above:Performed By: #### TROPI, LIP, CP, CDP #### [facility] [address] [place] [address] Sawdust Machine Operator: Sebastian Reyes MDBilirubin [Mass/Vol]0.3 mg/dLNormal0.3-1.2MMercy Health St. Anne HospitalComment on above:Performed By: #### TROPI, LIP, CP, CDP #### [facility] Lab [address] [place] [address] Sawdust Machine Operator: Sebastian Reyes MDBUN/CRE Rgglq4Vbd4-33ZdnhwAdena Fayette Medical CenterComment on above:Performed By: #### TROPI, LIP, CP, CDP #### [facility] Lab [address] [place] [address] Sawdust Machine Operator: MIC Dossalcium [Mass/Vol]9.5 mg/dLNormal8.6-10.4A[facility] Medical CenterComuniversity of [facility] health on above:Performed By: #### TROPI, LIP, CP, CDP #### [facility] Lab [address] [place], [place] [address] Sawdust Machine Operator: MIC Dosshloride [Moles/Vol]102 mmol/GXsjwfs51-488IjqfdAdena Fayette Medical CenterComment on above:Performed By: #### TROPI, LIP, CP, CDP #### [facility] Lab [address] [place], [place] [id number] Sawdust Machine Operator: MIC DossO2 [Moles/Vol]20 mmol/IOrvuiy78-62UhdzmAdena Fayette Medical CenterComment on above:Performed By: #### TROPI, LIP, CP, CDP #### [facility] [address] [place] [address] Sawdust Machine Operator: MIC Dossreatinine [Mass/Vol]0.6 mg/dLNormal0.5-0.9A[facility]ayette Medical CenterComment on above:Performed By: #### TROPI, LIP, CP, CDP #### [facility] [address] [place] [address] Sawdust Machine Operator: Sebastian Reyes MDGFR/1.73 sq M.predicted among non-blacks MDRD (S/P/Bld) [Vol rate/Area]mL/min/{1.73_m2}Normal>60Adena Fayette Medical CenterComment on above:Result Comment: These results are not intended for [...] or following therapy that affects renal tubular secretion.Performed By: #### TROPI, LIP, CP, CDP #### [facility] [address] [place] [phone] Sawdust Machine Operator: Sebastian Reyes MDGlucose [Mass/Vol]104 mg/cTKclb34-26VisjlPalmdale Regional Medical CenterComment on above:Performed By: #### TROPI, LIP, CP, CDP #### [facility] [address] [place] [address] Sawdust Machine Operator: Sebastian Reyes MDPotassium [Moles/Vol]3.7 mmol/LNormal3.7-5.3MMercy Health St. Anne HospitalComment on above:Performed By: #### TROPI, LIP, CP, CDP #### [facility] [address] [phone] Sawdust Machine Operator: Sebastian Reyes MDProtein [Mass/Vol]6.8 g/dLNormal6.4-8.3MMercy Health St. Anne HospitalComment on above:Performed By: #### TROPI, LIP, CP, CDP #### [facility] [address] [place] [address] Sawdust Machine Operator: Sebastian Reyes MDSodium [Moles/Vol]139 mmol/FTfwweu118-786ZslcyAdena Fayette Medical CenterComment on above:Performed By: #### TROPI, LIP, CP, CDP #### [facility] [address] [phone] Sawdust Machine Operator: Sebastian Reyes MDUrea nitrogen [Mass/Vol]4 mg/dLLow6-20A[facility] Medical CenterComment on above:Performed By: #### TROPI, LIP, CP, CDP #### [facility] [address] [phone] Sawdust Machine Operator: MIC Dossomprehensive Metabolic Panelon [id number] [Mass/Vol]4.1 g/dL3.5 - 5.2 g/dLBon [facility] HealthALP [Catalytic activity/Vol]73 U/L35 - 104 U/LBon [facility]ours [facility] Hospital HealthALT [Catalytic activity/Vol]14 U/L5 - 33 U/LBon [facility] Centerours Mount Carmel Health SystemAnion gap [Moles/Vol]17 mmol/L9 - 17 mmol/LBon Marymount HospitalAST [Catalytic activity/Vol]14 U/L NINF - 32 U/LBon Marymount HospitalBilirubin [Mass/Vol]0.3 mg/dL0.3 - 1.2 mg/dLBon [facility]mount HospitalCalcium [Mass/Vol]9.5 mg/dL8.6 - 10.4 mg/dLBon Marymount HospitalChloride [Moles/Vol]102 mmol/L98 - 107 mmol/LBon Marymount HospitalCO2 [Moles/Vol]20 mmol/L20 - 31 mmol/LBon [facility] Creatinine [Mass/Vol]0.6 mg/dL0.5 - 0.9 mg/dLBon Marymount HospitalEst, Glom Filt Rate- PINFBon Marymount HospitalComment on above: These results are not intended [...] therapy that affects renal tubular secretion. Glucose [Mass/Vol]104 mg/zUPows52 - 99 mg/dLBon [facility] Interpretation and review of laboratory resultsAbnormalBon [facility] Potassium [Moles/Vol]3.7 mmol/L3.7 - 5.3 mmol/LBon Marymount HospitalProtein [Mass/Vol]6.8 g/dL6.4 - 8.3 g/dLBon Marymount HospitalSodium [Moles/Vol]139 mmol/L135 - 144 mmol/LBon Marymount HospitalUrea nitrogen [Mass/Vol]4 mg/dLLow 6 - 20 mg/dLBon Marymount HospitalUrea nitrogen/Creatinine [Mass ratio]7 mg/mg Low9 - 20Bon Marymount HospitalLipaseon [id number] [Catalytic activity/Vol]29 U/L13 - 60 U/LBon Marymount HospitalLipase [Catalytic activity/Vol]29 U/FVdpmst30-61ZruruAdena Fayette Medical CenterComuniversity of [place] health on above:Performed By: #### ROYER ESTRADA, CP, CDP #### [facility] [address] [place] [address] Sawdust Machine Operator: Sebastian Sturtz, MDNo Panel Informationon [id number] Marymount HospitalTroponinon [id number] I.cardiac High sensitivity method [Mass/Vol] ng/L0 - 14 ng/LBon Marymount HospitalComuniversity of mich[facility] health on above:High Sensitivity Troponin values cannot be compared with other Troponin methodologies.Bon SecJ.W. Ruby Memorial HospitalTroponin, High Sens<5Boqaos2-53EejqfOhio Valley Surgical Hospital on above:Result Comment: High Sensitivity Troponin values cannot be compared with other Troponin methodologies.Performed By: #### TROPI, LIP, CP, CDP #### [facility] [address] [place] [address] Sawdust Machine Operator: Sebastian Reyes MDUrinalysison [id number] Ql (U)Negative NEGATIVEBon [facility] HealthClarity (U)ClearClearBon [facility] Color (U)YellowYellowBon Marymount HospitalCommentBon [facility] Glucose Test strip (U) [Mass/Vol]NegativeNEGATIVE mg/dLBon [facility] Hemoglobin Auto test strip Ql (U)NegativeNEGATIVEBon [facility] HealthKetones (U) [Mass/Vol]NegativeNEGATIVE mg/dLBon [facility] HospitalLeukocyte esterase Test strip Ql (U)NegativeNEGATIVEBon [facility]mount HospitalNitrite Ql (U)Negative NEGATIVEBon [facility] HealthpH (U)6.5 [pH]5.0 - 8.0[facility] Protein (U) [Mass/Vol]NegativeNEGATIVE mg/dLBon [facility] HospitalSpecific gravity (U) [Rel density]1.0051.005 - 1.030Bon [facility]mount HospitalUrobilinogen Qn (U)Normal0.0 - 1.0 EU/dLBon [facility] Urinalysis, Routineon [id number], SemiQt,UrNegativeNormalNEGOhio Valley Surgical Hospital on above:Performed By: #### UA ####[facility] [address] [place] [address] Lab Director: Katja Dossood, UrineNegativeNormalNEGAdena Fayette Medical CenterComment on above: Performed By: #### UA ####[facility] [address] [place] [address] Lab Director: MIC Dosslarity (U)Clear NormalCLEARMercPalmdale Regional Medical CenterComment on above:Performed By: #### UA ####[facility] [address] [place] [phone] Director: MIC Dossolor (U)YellowNormalYAultman Hospital Comment on above:Performed By: #### UA ####[facility] [address] [place] [address] Lab Director: MIC Dossomheavenly NormalAdena Fayette Medical CenterComment on above:Performed By: #### UA ####[facility] [address] [place] [address] Lab Director: Sebastian Reyes MDGlucose Ql (U)NegativeNormalCleveland Clinic [facility]ucl[facility] Comment on above:Performed By: #### UA ####[facility] [address] [place] [address] Lab Director: Sebastian Reyes MDKetones Ql (U)NegativeNormalNEGAdena Fayette Medical CenterComment on above:Performed By: #### UA ####[facility] [address] [place] [address] Lab Director: Sebastian Reyes MDLeukocyte esterase Test strip Ql (U)NegativeNormalNEGMerZucker Hillside HospitalComment on above:Performed By: #### UA ####[facility] [address] [place] [phone] Director: Sebastian Reyes MDNitrite,UrNegativeNormalNEGMerSouthern Ohio Medical Centerard HospitalComment on above:Performed By: #### UA ####[facility] [address] [facility], [place] [phone] Director: Sebastian Reyes MD PH,Ur6.3Jtxobr1.0-8.0A[facility] Fayette Medical CenterComment on above:Performed By: #### UA ####[facility] [address] [facility], [place] [phone] Director: GEOVANNY Dossrotein Ql (U)NegativeNormalNEG [facility] CenterComment on above:Performed By: #### UA ####[facility] [address] [facility], [place] [phone] Director: AUGUST Dosspec. Economy,Ur1.500Agaoyc3.005-1.030[facility] Comment on above:Performed By: #### UA ####[facility] [address] [facility], [place] [phone] Director: Sebastian Reyes MD Urobilinogen,UrNormalNormal0.0-1.0A[facility] Medical CenterComment on above: Performed By: #### UA ####[facility] [address] [facility], [place] [phone] Director: GERALDINE DossR CHEST (2 VW)on [id number] CHEST (2 VW)EXAM: Chest x-ray HISTORY: . wheezing . COMPARISON: 08/07/2024 TECHNIQUE: Frontal and lateral chest FINDINGS: Heart and vascularity are unremarkable. Lungs are free of focal infiltrates. No bony abnormality was appreciated. IMPRESSION: No acute heart or lung disease identified. Interpreted by: Sebastian Robb MD Signed by: Sebastian Robb MD 11/02/24 Final resultNormFort Hamilton HospitalXR Chest 2 Viewson 11-02-2024 No acute heart or lung disease identified. MHPN RIS CONSOLIDATEDEXAM: Chest x-ray HISTORY: . wheezing . COMPARISON: 08/07/2024 TECHNIQUE: Frontal and lateral chest FINDINGS: Heart and vascularity are unremarkable. Lungs are free of focal infiltrates. No bony abnormality was appreciated. [facility] Sebastian Vargas MD - 11/02/2024 EXAM: Chest x-ray HISTORY: . wheezing . COMPARISON: 08/07/2024 TECHNIQUE: Frontal and lateral chest FINDINGS: Heart and vascularity are unremarkable. Lungs are free of focal infiltrates. No bony abnormality was appreciated. IMPRESSION: No acute heart or lung disease identified. [facility] HospitalRadiology Study observation (narrative)[facility] HospitalXR Chest 2 ViewsOrdered By: Sebastian Robb on [id number] Medical Center Work Phone: cult,Urineon [id number],UrineSpecimen Description .URINE, MIDSTREAM Culture NO SIGNIFICANT GROWTH Report Status FINAL 08/08/2024[facility] CenterComment on above: Performed By: #### URC ####[facility] [address] [place] [address] Lab Director: Billy Chavez, [facility] [address] [place] [address] lab Director: Sebastian Reyes MD MHPT CULT,URINEon [id number] CULT,URINESpecimen Description .URINE, MIDSTREAMNOMS HealthcareMHPT CULT,URINECulture NO SIGNIFICANT GROWTHNOMN HealthcareMHPT CULT,URINEReport Status FINAL 08/08/2024NOMN HealthcareOriginal Ordering Provider: KIET FERNANDESISYGERARDOPike County Memorial Hospital with Auto Differentialon [id number] (Bld) [#/Vol]0.04 10*3/uLWYTHE COUNTY COMMUNITY HOSPITALImmature granulocytes (Bld) [#/Vol]0.03 10*3/uLWYTHE COUNTY COMMUNITY HOSPITAL Interpretation and review of laboratory resultsAbnormalWYTHE COUNTY COMMUNITY HOSPITAL Lymphocytes/100 WBC (Bld)2.82 %WYTHE COUNTY COMMUNITY HOSPITALMonocytes/100 WBC (Bld) 0.75 %WYTHE COUNTY COMMUNITY HOSPITALNeutrophils/100 WBC (Bld)70 %47 - 75 %WYTHE COUNTY COMMUNITY HOSPITALSegmented neutrophils/100 WBC (Bld)8.15 %HighBON SELECT MEDICAL CLEVEL[facility] CL[facility] REHABILITATION HOSPITAL, BEACHWOODWBC other (Bld) [#/Vol]11.8HighBON SIOUX FALLS SURGICAL CENTERCBC with Diffon [id number]/100 WBC (Bld)0 %Normal0-2BON [facility] on above:Performed By: #### LACTIC CDP, CP #### [facility] Lab [address] [place] [address] Sawdust Machine Operator: Sebastian Reyes MDEosinophils (Bld) [#/Vol]0.05 10*3/uLNormal 0.00-0.40BON [facility] on above:Performed By: #### LACTIC CDP, CP #### [facility] Lab [address] [place] [address] Sawdust Machine Operator: Sebastian Reyes MDEosinophils/100 WBC (Bld)0 %Normal0-5BON [facility] on above:Performed By: #### LACTIC CDP, CP #### [facility] Lab [address] [place] [address] Sawdust Machine Operator: Sebastian Reyes MDErythrocyte distribution width (RBC) [Ratio]11.8 % Low12.1-15.2BON [facility] on above:Performed By: #### LACTIC CDP, CP #### [facility] Lab [address] [place] [address] Sawdust Machine Operator: Sebastian Reyes MDHematocrit (Bld) [Volume fraction]43.8 %Normal 36.0-46.0BON [facility] on above:Performed By: #### LACTIC CDP, CP #### [facility] Lab [address] [place] [address] Sawdust Machine Operator: Sebastian Reyes MDHemoglobin (Bld) [Mass/Vol]15.1 g/dLNormal 12.0-16.0BON SECOURS [facility]CARE SYSTEMComuniversity of [facility] on above:Performed By: #### LACTIC CDP, CP #### [facility] Lab [address] [place] [id number] Sawdust Machine Operator: Sebastian Reyes MDImmature granulocytes/100 WBC (Bld)0 %Normal0-5BON [facility]CLUTHERAN HOSPITALComuniversity of [facility] on above:Performed By: #### LACTIC CDP, CP #### [facility] Lab [address] [place] [address] Sawdust Machine Operator: Sebastian Reyes MDLymphocytes/100 WBC (Bld)24 %Mgidcz47-60PAB [facility] on above:Performed By: #### ANN TORO, CP #### [facility] Lab [address] [place] [address] Sawdust Machine Operator: ZULLY DossCH (RBC) [Entitic mass]33.2 ziDkcfcf16.0-34.0B[facility] on above:Performed By: #### CORTEZ CDP, CP #### [facility] Lab [address] [place] [address] Sawdust Machine Operator: SEMAJ DossC (RBC) [Mass/Vol]34.5 g/nZRziwlw60.0-37.0[facility] on above:Performed By: #### LACTIC CDP, CP #### [facility] Lab [address] [place] [address] Sawdust Machine Operator: ZULLY DossCV (RBC) [Entitic vol]96.3 bRTxiqvb86.0-100.0BON [facility]ARE SYSTEMComuniversity of [facility] on above:Performed By: #### LACTIC CDP, CP #### [facility] Lab [address] [place] [address] Sawdust Machine Operator: Sebastian Reyes MDMonocytes/100 WBC (Bld)6 %Normal4-8BON [facility] on above:Performed By: #### LACTIC, CDP, CP #### [facility] Lab [address] [place] [address] Sawdust Machine Operator: Manolo Doss mean volume (Bld) [Entitic vol]9.9 fL Normal6.0-12.0BON [facility] on above:Performed By: #### LACTIC, CDP, CP #### [facility] Lab [address] [place] [address] Sawdust Machine Operator: Anjel Dosstehaseeb (Bld) [#/Vol]314 10*3/aXYsdgow233-120HMV [facility] on above:Performed By: #### LACTIC CDP, CP #### [facility] Lab [address] [place] [address] Sawdust Machine Operator: Sebastian Reyes MDRBC (Bld) [#/Vol]4.55 10*6/uLNormal4.00-5.20BON [facility] on above:Performed By: #### LACTIC, CDP, CP #### [facility] Lab [address] [place] [address] Sawdust Machine Operator: Shanna Doss. Basophil0.04 k/uLNormal0.00-0.20[facility] on above:Performed By: #### LACTIC, CDP, CP #### [facility] Lab [address] [place] [address] Sawdust Machine Operator: MDAbs. SelamImm.Granulocyte0.03 k/uLNormal0.00-0.30[facility] on above:Performed By: #### LACTIC, CDP, CP #### [facility] Lab [address] [place] [address] Sawdust Machine Operator: Shanna Doss.Neutrophil (Seg)8.15 k/uLHigh2.5-7.0A[facility] Medical CenterComment on above:Performed By: #### LACTIC, CDP, CP #### [facility] Lab [address] [place] [address] Sawdust Machine Operator: Sebastian Reyes MDLymphocytes (Bld) [#/Vol]2.82 10*3/uLNormal 1.00-4.80Adena Fayette Medical CenterComment on above:Performed By: #### LACTIC, CDP, CP #### [facility] Lab [address] [place] [address] Sawdust Machine Operator: ZULLY Dossonocytes (Bld) [#/Vol]0.75 10*3/uLNormal0.00-1.00 Ad[facility]ayette Medical CenterComment on above:Performed By: #### LACTIC CDP, CP #### [facility] Lab [address] [place] [address] Sawdust Machine Operator: Sebastian Reyes MDNeutrophil (Seg)70 %Jdcsdy86-09AjendAdena Fayette Medical CenterComment on above:Performed By: #### LACTIC CDP, CP #### [facility] Lab [address] [place] [address] Sawdust Machine Operator: ANNA DossBC (Bld) [#/Vol]11.8 10*3/uLHigh3.5-11.0Aden[facility] Fayette Medical CenterComment on above:Performed By: #### LACTIC CDP, CP #### [facility] Lab [address] [place] [address] Sawdust Machine Operator: Sebastian Reyes MDCT ABDOMEN PELVIS W IV CONTRASTon [id number] ABDOMEN PELVIS W IV CONTRASTEXAM: CT ABDOMEN PELVIS W IV CONTRAST HISTORY: [...] by: Gray Oro Jr., MD 08/07/24 Final resultNoMercy Health Anderson HospitalCT Abdomen and Pelvis W contrast Juan R 08-07-2024 Negative. [facility] CONSOLIDATEDEXAM: CT ABDOMEN PELVIS W IV CONTRAST HISTORY: [...] glands, pancreas, spleen, liver and lung bases. [facility] Gray Mcrae Jr., MD - 08/07/2024 EXAM: CT ABDOMEN [...] spleen, liver and lung bases. IMPRESSION: Negative. [facility]ENTERRadiology Study observation (narrative)[facility] Metabolic Profon [id number] [Mass/Vol]4.4 g/dLNormal3.5-5.2MMercy Health St. Anne HospitalComment on above:Performed By: #### CORTEZ CDP, CP ####[facility] Lpk[address] [place], [place] [id number] Director: Rio Doss Phos74 U/RIvfbwr42-383TklhfAdena Fayette Medical CenterComment on above:Performed By: #### ANN TORO, CP ####[facility] Zwj74[address] [place] [address] Lab Director: Sebastian Reyes MDALT [Catalytic activity/Vol]16 U/LNormal5-33Adena Fayette Medical CenterComment on above:Performed By: #### CORTEZ CDP, CP ####[facility] Gyt[address]71 [place] [address] Lab Director: Maxx Doss gap [Moles/Vol]13 mmol/L Normal9-17Aden[facility] Fayette Medical CenterComment on above:Performed By: #### CORTEZ CDP, CP ####[facility] Hvw1527 [place] [address] Lab Director: Sebastian Reyes MDAST [Catalytic activity/Vol]15 U/LNormal<32Adena Fayette Medical CenterComment on above:Performed By: #### LACTIC CDP, CP ####[facility] Mbf3080 [place] [address] Lab Director: Sebastian Reyes MDBilirubin [Mass/Vol]0.4 mg/dL Normal0.3-1.2MMercy Health St. Anne HospitalComment on above:Performed By: #### LACTIC CDP, CP ####[facility] Knt[address]99 [facility] [place] [address] Lab Director: Sebastian Reyes MDBUN/CRE Rimfo9Inp3-56XyqnzAdena Fayette Medical CenterComment on above:Performed By: #### LACTIC, CDP, CP ####[facility] Vga[address] [facility] [place] [address] Lab Director: MIC Dossalcium [Mass/Vol]9.2 mg/dLNormal8.6-10.4Adena Fayette Medical CenterComment on above:Performed By: #### LACTIC, CDP, CP ####[facility] Uhf8769 [facility] [place] [address] Lab Director: MIC Dosshloride [Moles/Vol]103 mmol/WHncwda65-196WjcrwAdena Fayette Medical CenterComment on above:Performed By: #### LACTIC, CDP, CP ####[facility] Zka9046 [facility] [place] [address] Lab Director: MIC DossO2 [Moles/Vol]22 mmol/WWajjps45-85FcxhbAdena Fayette Medical Center Comment on above:Performed By: #### LACTIC, CDP, CP ####[facility] Drj2858 [facility] [place] [address] Lab Director: MIC Dossreatinine [Mass/Vol]0.7 mg/dLNormal0.5-0.9[facility] Comment on above:Performed By: #### LACTIC, CDP, CP ####[facility] Zcl2688 [facility] [place] [address] Lab Director: Sebastian Reyes MDGFR/1.73 sq M.predicted among non-blacks MDRD (S/P/Bld) [Vol rate/Area]mL/min/{1.73_m2}Normal>60Adena Fayette Medical CenterComment on above:Result Comment: These results are not intended for [...] or following therapy that affects renal tubular secretion.Performed By: #### ANN TORO, CP ####[facility] [address] [place] [phone] Director: Sebastian Reyes MDGlucose [Mass/Vol]77 mg/dWYxhzda62-36JlptiMercy Health St. Anne HospitalComment on above:Performed By: #### ANN TORO, CP ####[facility] Rxz4502 [place] [address] Lab Director: GEOVANNY Dossotassium [Moles/Vol]3.6 mmol/LLow3.7-5.3MMercy Health St. Anne HospitalComment on above:Performed By: #### ANN TORO, CP ####[facility] Uoe[address] [place] [address] Lab Director: Sebastian Reyes MDProtein [Mass/Vol]7.6 g/dLNormal6.4-8.3MMercy Health St. Anne Hospital Comment on above:Performed By: #### ANN TORO, CP ####[facility] [address]sx[address] [place] [id number] Lab Director: AUGUST Dossodium [Moles/Vol]138 mmol/UZfdfyq476-068GbboeAdena Fayette Medical CenterComment on above:Performed By: #### CORTEZ CDP, CP ####[facility] Lqm9991 [place] [address] Lab Director: Sebastian Reyes MD Urea nitrogen [Mass/Vol]4 mg/dLLow6-20Adena Fayette Medical CenterComment on above: Performed By: #### CORTEZ CDP, CP ####[facility] [address] [place] [address] lab Director: Sebastian Reyes MD Comprehensive Metabolic Panelon [id number] [Mass/Vol]4.4 g/dL3.5 - 5.2 g/dLBON SECOURS BtargetY HEALTHALP [Catalytic activity/Vol]74 U/L35 - 104 U/LBON SECOURS Openfolio HEALTHALT [Catalytic activity/Vol]16 U/L5 - 33 U/LBON SECOURS HackerEarthAnion gap [Moles/Vol]13 mmol/L9 - 17 mmol/LBON SECOURS [facility] AST [Catalytic activity/Vol]15 U/LNINF - 32 U/LBON SECOURS Open[employer] HEALTHBilirubin [Mass/Vol]0.4 mg/dL0.3 - 1.2 mg/dLBON SECOURS Openfolio HEALTHCalcium [Mass/Vol]9.2 mg/dL8.6 - 10.4 mg/dLBON SECOURS Openfolio HEALTHChloride [Moles/Vol]103 mmol/L98 - 107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 Health AdministrationC Urineon 87-85-2388Mxyrbrtj identified Cx Nom (U)Microbiology PROCEDURE: Urine Culture [R1] SOURCE: U CleanCatch BODY SITE: COLLECTED DATE/TIME: 11/05/2023 13:09 EST RECEIVED DATE/TIME: 11/05/2023 14:23 EST START DATE/TIME: 11/05/2023 14:23 EST FREE TEXT SOURCE: Bari Alicea DO, DO, Bari FINAL REPORTS Final Report [] Verified Date/Time: 11/07/2023 10:49 EST 1,000 cfu/ml Mixed skin contaminants Performing Locations R1: This test was performed at: [facility], [address] [place] [address], [address] , , KcuiqlIsumdaMercy Health St. Elizabeth Youngstown HospitalComment on above:Performed By: #### [id number], [id number] ####[address] [address]Kokl Diffon 16-37-2807Hfxxfpvkg/100 WBC (Bld)0.5 %Normal 0.0-2.0Glenbeigh HospitalComment on above:Order Comment: Order Added by Discern Expert.Performed By: #### 4031261, 0376742, 05652420, 1450779, 4437352, 8827202 ####[address] [address]Cgrwkjhfu/Leukocytes Auto (Bld) [Pure # fraction]0.1 E9/LNormal0.0-0.2 [facility] HospitalComment on above:Order Comment: Order Added by Discern Expert.Performed By: #### 0803764, 8138960, 90077563, 6131396, 8535718, 5300522 ####[address] [address]Nqnrrmfwmxv/100 WBC (Bld)1.9 %Normal0.0-8.0[facility] Comment on above:Order Comment: Order Added by Discern Expert.Performed By: #### 3147592, 6903632, 12111025, 7136006, 1776784, 9577376 ####[place] [address] [address]Nmtssleedzw/Leukocytes Auto (Bld) [Pure # fraction]0.3 E9/LNormal0.0-0.5FCleveland Clinic Euclid HospitalComment on above:Order Comment: Order Added by Discern Expert.Performed By: #### 0493689, 4338226, 93095661, 1414426, 2623498, 9910951 ####[address] [address]Fnsxkoieove/100 WBC (Bld)27.3 %Uimeyi18.0-50.0[facility]igh HospitalComment on above:Order Comment: Order Added by Discern Expert.Performed By: #### 5788584, 0887560, 79698421, 9942063, 0249031, 1584985 ####[address] [address]Oiocjrkkavl/Leukocytes Auto (Bld) [Pure # fraction]4.1 E9/L High1.0-4.0[facility]igh HospitalComment on above:Order Comment: Order Added by Discern Expert.Performed By: #### 4458548, 8591978, 23816079, 1850934, 0077965, 4656708 ####[place] [address] [address]Ufrxsgwdg/100 WBC (Bld)4.6 %Normal4.0-14.0[facility]igh HospitalComment on above:Order Comment: Order Added by Discern Expert. Performed By: #### 0007155, 6591555, 77682720, 4391618, 0680075, 0604645 ####[address] [address] Monocytes/Leukocytes Auto (Bld) [Pure # fraction]0.7 E9/LNormal0.2-1.0[facility]igh HospitalComment on above:Order Comment: Order Added by Discern Expert.Performed By: #### 7379293, 1873559, 01926168, 7228011, 1616912, 9791273 ####[place] [address] [place] [address] Neutrophils/100 WBC (Bld)65.7 %Maeblu89.0-75.0[facility]igh HospitalComment on above:Order Comment: Order Added by Discern Expert.Performed By: #### 1877706, 2491590, 45827116, 2997486, 8844656, 9695117 ####[place] [address] [address]Bxqsdsnbivp/Leukocytes Auto (Bld) [Pure # fraction]9.8 E9/LHigh2.0-7.5FCleveland Clinic Euclid HospitalComment on above:Order Comment: Order Added by Discern Expert.Performed By: #### 4300808, 2242387, 49692901, 9889209, 7296873, 6771662 ####[address] [address]PTSrj 42-43-2479Pbpud gap [Moles/Vol] 12 mmol/LNormal6-16[facility] HospitalComment on above:Performed By: #### 8139099, 5045292, 27999303, 1054500, 1395194, 1876442 ####[place] [address] [place], [place] [address]YMU/Creat Ratio7 No IomprXlc32-17SofbwjGlenbeigh HospitalComment on above:Performed By: #### 4963446, 5452551, 10482492, 8168710, 7064947, 1302176 ####[place] [address] [place], [place] [address]Baehdao [Mass/Vol]9.3 mg/dL Normal8.9-11.1FCleveland Clinic Euclid HospitalComment on above:Performed By: #### 6449550, 6903276, 09914441, 4036057, 6218056, 9762405 ####[place] [address] [place], [place] [address]Rdxbxzoa [Moles/Vol]106 mmol/L Jjybwk028-667AbobamGlenbeigh HospitalComment on above:Performed By: #### 2671493, 8708608, 69715458, 3121389, 7435175, 1271360 ####[facility] [address] [place], [place] [address]XQ3 [Moles/Vol]25 mmol/LNormal 21-31G[facility]igh HospitalComment on above:Performed By: #### 2745607, 9529265, 20736699, 6883226, 7837111, 7685825 ####[facility] [address] [place] [address]Hpvjrihisu [Mass/Vol]0.6 mg/dLNormal 0.5-1.3FCleveland Clinic Euclid HospitalComment on above:Performed By: #### 8291411, 6241253, 73177777, 9519509, 7040649, 6890712 ####[facility] [address] [place] [address]Locgjnn [Mass/Vol]105 mg/dLNormal 55-199G[facility]beigh HospitalComment on above:Performed By: #### 4322924, 7685482, 20394074, 8522854, 2383581, 3032926 ####[facility] [address] [place], [place] [address]Bxylvgddu [Moles/Vol]3.9 mmol/LNormal 3.5-5.3FCleveland Clinic Euclid HospitalComment on above:Performed By: #### 7333539, 6182244, 98474713, 1799164, 2348931, 3080156 ####[facility] [address] [place], [place] [address]Amlmqy [Moles/Vol]139 mmol/LNormal 135-145Glenbeigh HospitalComment on above:Performed By: #### 4676443, 8590244, 52907980, 7884624, 8753926, 4848151 ####[facility] [address] [place], [place] [address]Ygmv nitrogen [Mass/Vol]mg/dLLow5-21 [facility] Ellis Medical CenterComment on above:Performed By: #### 0980602, 1703802, 48744857, 2406344, 4466612, 7412157 ####[place] [address] [place], [place] [address]KLI w/ Auto Diffon 11-05-2023 Erythrocyte distribution width (RBC) [Ratio]15.6 %High10.9-14.2FCleveland Clinic Euclid HospitalComment on above:Performed By: #### 1991490, 0099609, 97453704, 6108209, 7194943, 5589292 ####[place] [address] [address]Xpenejgnyl (Bld) [Volume fraction]48.2 %High34.0-46.0[facility]igh HospitalComment on above:Performed By: #### 3894580, 2891356, 88485242, 9596564, 5997268, 9421166 ####[place] [address] [address]Gixoubkquz (Bld) [Mass/Vol]16.5 g/dL High12.0-16.0[facility]igh HospitalComment on above:Performed By: #### 2865178, 0176268, 04559168, 2584930, 5728275, 7702769 ####[place] [address] [address]IZO (RBC) [Entitic mass]34.3 gbXfgg65.0-34.0G[facility]igh HospitalComment on above:Performed By: #### 8583107, 0837083, 67557041, 9929352, 6556119, 3611214 ####[place] [address] [address]CBKX (RBC) [Mass/Vol]34.3 g/dL Rxazdi50.4-36.0[facility]igh HospitalComment on above:Performed By: #### 8517475, 4325663, 31623966, 7666523, 2707712, 3136045 ####[place] [address] [place] [address]KBW (RBC) [Entitic vol]100.2 iNGhde63.0-100.0G[facility]igh HospitalComment on above:Performed By: #### 8264197, 7499963, 77727331, 4559553, 7046423, 3324109 ####[facility] [address] [place] [address]Tdtrpnse mean volume (Bld) [Entitic vol]8.1 fLNormal6.4-10.8Glenbeigh HospitalComment on above: Performed By: #### 5469458, 5641609, 86481508, 4675197, 1635811, 2263510 ####[address] [address] Platelets (Bld) [#/Vol]312.0 E9/LIshndo792.0-500.0[facility] Comment on above:Performed By: #### 8525097, 6198344, 72065408, 4035366, 2772545, 1881540 ####[address] [address]YHJ (Bld) [#/Vol]4.8 E12/LNormal4.3-5.9Glenbeigh HospitalComment on above:Performed By: #### 9616555, 1700135, 13651093, 0181928, 7185611, 1577746 ####[address] [address]SKB corrected for nucl RBC Auto (Bld) [#/Vol]14.9 E9/LHigh 4.0-11.0G[facility]beigh HospitalComment on above:Performed By: #### 1611424, 8130411, 89811634, 0578716, 1998282, 5025975 ####[facility] [address] [place], [place] [address]WIJLQGPDLVgiuacp By: SYSTEM SYSTEM on 64-09-9903Uswczku [Mass/Vol]4.2 g/dLNormal3.3 - 5.0 gm/dLRemisol ChemAlk Phos61 [iU]/xXjgpji08 - 98 Int._Unit/LRemisol VuwfCAP00 [iU]/dNormal6 - 46 Int._Unit/L Remisol ChemAnion gap [Moles/Vol]12 mmol/LNormal6 - 16 mEq/LRemisol HpcgKGM84 [iU]/dNormal5 - 43 Int._Unit/LRemisol ChemBili Direct0.2 mg/dLNormal0.1 - 0.4 mg/dLRemisol ChemBili Total0.8 mg/dLNormal0.0 - 1.1 mg/dLRemisol ChemCalcium [Mass/Vol]9.3 mg/dLNormal8.9 - 11.1 mg/dLRemisol ChemChloride [Moles/Vol]106 mmol/NCggcus487 - 111 mmol/LRemisol ChemCO2 [Moles/Vol]25 mmol/FCpyvpm24 - 31 mmol/LRemisol ChemCreatinine [Mass/Vol]0.6 mg/dLNormal0.5 - 1.3 mg/dLRemisol ChemeGFRmL/min/1.73 i8Rihxwz>=59mL/min/1.73 j9Fohozvp ChemGlobulin (S) [Mass/Vol]2.6 g/dLNormal1.4 - 4.0 gm/dLRemisol ChemGlucose [Mass/Vol]105 mg/dL Guffdh94 - 199 mg/dLRemisol ChemLipase Lvl17 unit/OWorach47 - 58 unit/LRemisol ChemPotassium [Moles/Vol]3.9 mmol/LNormal3.5 - 5.3 mmol/LRemisol ChemProtein [Mass/Vol]6.8 g/dLNormal6.0 - 7.8 gm/dLRemisol ChemSodium [Moles/Vol]139 mmol/L Wvvsfo247 - 145 mmol/LRemisol ChemUrea nitrogen [Mass/Vol]mg/dLLow5 - 21 mg/dL Remisol ChemUrea nitrogen/Creatinine [Mass ratio]7 mg/mgLow10 - 20Remisol Chem CHEMISTRYOrdered By: Altagracia Burgos on 25-31-4973Zliioma/Globulin [Mass ratio] 1.6 {ratio}Normal1.1 - 2.2[facility] Chem SBili Indirect0.6 mg/dLNormal0.1 - 0.9 mg/dL [facility] Chem SConsent for Treatmenton 14-63-1394Hlyavnn for Treatment [id number]#1.00Corey HospitalDischarge Instructionson 19-40-2257Zsyyrnulj Instructions [id number]#1.00TIFHolzer Health System Clinical Summaryon [id number] Clinical Summary [address] [address] ED Clinical Summary Person Information Name: SHIRIN BURGOS Rachna/[facility] Age: 33 Years : 1990 Sex: Female Language: Malagasy PCP: JANIYA RAYGOZA MD Marital Status: Single [...] 11/05/2023 14:16:12 11/05/2023 14:16:12 11/05/2023 14:16:12 ADDRESS: [address] [id number] PHYS DOC NOTES: MEDICAL INFORMATION: Prescriptions Given: New Medications Printed Prescriptions cephalexin (Keflex 500 mg Cap) 1 Capsules By Mouth every 12 hours for 7 Days. Refills: 0. omeprazole (omeprazole 20 mg Cap-DR) 1 Capsules By Mouth every day. Refills: 0. phenazopyridine (Pyridium 200 mg Tab) 1 Tablets By Mouth 3 times a day. Take one tab by mouth threetimes a day for three days. Refills: 0. PATIENT EDUCATION INFORMATION: Instructions: Follow up: With: Address: When: Juli Sauceda [address] [facility], [address], [address] [phone] Business (1) In 3 days 11/08/2023 With: Address: When: JANIYA RAYGOZA [address] [place] [address] Business (1) In 3 days DIAGNOSIS: Gastritis; UTI (urinary tract infection)[facility] CenterED Note-Physicianon [id number] Note-PhysicianBasic Information Time Seen: Bari Alicea DO 11/05/2023 12:54 Chief Complaint Pt presents to ED with complaints of epigastric pain onset today. urinary frequency onset days ago,started old ATB today. History of Present Illness [...] urinary frequency does have evidence of UTI t herefore was discharged home on Pyridium and Keflex. [...] Once, Stop date 11/05/23 13:00:00 EST, STAT, Startdate 11/05/23 13:00:00 EST, 11/05/23 13:00:00 EST phenazopyridine, [...] mL, Soln-IV, IV, Once, Stop date 11/05/23 13:00:00EST, STAT, Start date 11/05/23 13:00:00 EST, Infuse [...] Sauceda In 3 days 11/08/[address] [facility], [address] [phone] Business (1) Additional Instructions: JANIYA RAYGOZA In 3 days [address] [place] [address]- Business (1) Additional Instructions: Problem List/Past Medical [...] per day. Ready to (more content not included)...[facility] HospitalComment on above:Result Comment: Electronically Signed By: Bari Alicea DO\.br\Date and Time Signed: 11/05/23 14:06ESTED Patient Education Noteon [id number] Patient Education NoteNormOhioHealth Shelby Hospital CenterED Patient Summaryon 46-42-3601TB Patient Summary [address] [address] Patient Discharge Instructions Person Information Name: SHIRIN BURGOS Age: 33 Years Arrival Date: 11/05/2023 12:49:22 Discharge Diagnosis: Gastritis; UTI (urinary tract infection) Primary Care Physician: JANIYA RAYGOZA MD Provider Information Primary Provider: Bari Alicea DO Advanced Vaccinator:None The exam and treatment you received in the Emergency Department were for an urgent problem and are not intended as complete care. It is important that you follow up with a doctor, nurse practitioner,or physician?s pathology assistant for ongoing care. If your symptoms [...] Instructions: With: Address: When: Juli Sauceda [address] [facility], [address], [address] [phone] Business (1) In 3 days 11/08/2023 With: Address: When: JANIYA RAYGOZA [address] [place], [place] [id number] Business (1) In 3 days In the event that this physician does not participate in your insurance network, please consult with your insurance company to find a nearby participating provider. Patient Education Materials: A MESSAGE TO ALL PATIENTS REGARDING OPIOIDS PRESCRIPTION OPIOIDS: WHAT YOU NEED TO KNOW Prescription opioids can be used to help relieve rioeawyw-fy-sihflc pain and are often prescribed following a [...] and have fewer risks and side effects. Optionsmay include: ? Pain relievers such as acetaminophen, [...] unused prescription opioids: Find your community drug take- back program or yourpharmacy mail-back program, or flush them down the toilet, following guidance from the Food and Drug Administration (www.fda.gov/Drugs/ResourcesForYou). ? Visit www.cdc.gov/drugoverdose to learn about the risks of opioids abuse and overdose. ? If you believe you may be struggling with addiction, tell your health care prof (more content notincluded)...[facility] HospitalHEMATOLOGY Ordered By: SYSTEM SYSTEM on 63-37-0112Achrkrlxj/100 WBC (Bld)0.5 %Normal0.0 - 2.0 %[facility] HemeAutoSSBasophils/Leukocytes Auto (Bld) [Pure # fraction]0.1 E9/L Normal0.0 - 0.2 E9/LFTMC HemeAutoSSEosinophils/100 WBC (Bld)1.9 %Normal0.0 - 8.0 %[facility] HemeAutoSSEosinophils/Leukocytes Auto (Bld) [Pure # fraction]0.3 E9/L Normal0.0 - 0.5 E9/LFTMC HemeAutoSSLymphocytes/100 WBC (Bld)27.3 %Hiottw82.0 - 50.0 %[facility] HemeAutoSSLymphocytes/Leukocytes Auto (Bld) [Pure # fraction]4.1 E9/L High1.0 - 4.0 E9/LFTMC HemeAutoSSMonocytes/100 WBC (Bld)4.6 %Normal4.0 - 14.0 % [facility] HemeAutoSSMonocytes/Leukocytes Auto (Bld) [Pure # fraction]0.7 E9/LNormal 0.2 - 1.0 E9/LFTMC HemeAutoSSNeutrophils/100 WBC (Bld)65.7 %Sjpvlr69.0 - 75.0 % [facility] HemeAutoSSNeutrophils/Leukocytes Auto (Bld) [Pure # fraction]9.8 E9/LHigh 2.0 - 7.5 E9/LFTMC HemeAutoSSHEMATOLOGYOrdered By: Tiffanie Faith on 11-05-2023 Erythrocyte distribution width (RBC) [Ratio]15.6 %High10.9 - 14.2 %[facility] HemeAutoSSHematocrit (Bld) [Volume fraction]48.2 %High34.0 - 46.0 %FT HemeAutoSSHemoglobin (Bld) [Mass/Vol]16.5 g/cUOlil92.0 - 16.0 gm/dLFT HemeAutoSSMCH (RBC) [Entitic mass]34.3 voLpqp12.0 - 34.0 pgFTMC HemeAutoSSMCHC (RBC) [Mass/Vol]34.3 g/hMWttngc31.4 - 36.0 gm/dLFT HemeAutoSSMCV (RBC) [Entitic vol]100.2 vPOauk49.0 - 100.0 fLFT HemeAutoSSPlatelet mean volume (Bld) [Entitic vol]8.1 fLNormal6.4 - 10.8 fLFT HemeAutoSSPlatelets (Bld) [#/Vol]312.0 E9/KJgtgtu199.0 - 500.0 E9/LFST. [facility] HemeAutoSSRBC (Bld) [#/Vol]4.8 E12/LNormal4.3 - 5.9 E12/LFST. [facility] HemeAutoSSWBC corrected for nucl RBC Auto (Bld) [#/Vol]14.9 E9/LHigh4.0 - 11.0 E9/LFST. [facility] HemeAutoSSHep Func Panelon 11-05-2023 Albumin/Globulin [Mass ratio]1.6 {ratio}Normal1.1-2.2FC[facility] Comment on above:Performed By: #### 1180960, 7760174, 46796521, 8198809, 8127302, 3917965 ####[facility] [address] [place], [place] [address]Ycvr Indirect0.6 mg/dLNormal0.1-0.9Glenbeigh HospitalComment on above:Performed By: #### 7076834, 3788572, 79559934, 4518564, 8433315, 4665239 ####[facility] [address] [place], [place] [address]Qjxgzel [Mass/Vol]4.2 g/dLNormal3.3-5.0Glenbeigh HospitalComment on above:Performed By: #### 4796507, 0289223, 57028209, 3299506, 1573876, 7986857 ####[facility] [address] [place], [place] [address]Szy Phos61 Int._Unit/BGpgztb90-17IngwqlGlenbeigh Hospital Comment on above:Performed By: #### 6971001, 3702216, 94643106, 1715025, 3289971, 3831017 ####[facility] [address] [place], [place] [address]XZE70 Int._Unit/LNormal6-46[facility] Comment on above:Performed By: #### 3220112, 4655960, 72611247, 3903947, 6894789, 1454346 ####[facility] [address] [place], [place] [address]KIG41 Int._Unit/LNormal5-43[facility] Comment on above:Performed By: #### 0642894, 9646838, 27840274, 6677478, 0207342, 4416850 ####[address] [place], [place] [address]Rcnm Direct0.2 mg/dLNormal0.1-0.4FC[facility] Comment on above:Performed By: #### 6634444, 8911324, 77505541, 9585250, 1116834, 6978408 ####[address] [place], [place] [address]Hxbe Total0.8 mg/dLNormal0.0-1.1FC[facility] Comment on above:Performed By: #### 5675068, 6676892, 26502363, 3054058, 5362497, 6334467 ####[address] [place], [place] [address]Plcfdewe (S) [Mass/Vol]2.6 g/dLNormal1.4-4.0Glenbeigh HospitalComment on above:Performed By: #### 6628118, 5036945, 73020865, 1390679, 5651004, 0348063 ####[facility] [address] [place], [place] [address]Vperpoy [Mass/Vol]6.8 g/dLNormal6.0-7.8G[facility]igh HospitalComment on above:Performed By: #### 2159340, 4635056, 29336268, 0310530, 1686637, 9588131 ####[address] [address]Prcbsf Levelon 17-90-9382Ebijvg Lvl17 unit/IVnlyxl87-23 [facility]igh HospitalComment on above:Performed By: #### 9548951, 4817090, 27179776, 6400360, 2133330, 2303789 ####[address] [address]IF With Cult Reflexon 11-05-2023 Bacteria LM Ql (Urine sed)TRACENormalTraceGlenbeigh HospitalComment on above:Performed By: #### [id number], 9903340 ####[address] [address]Zmtchpber Ql (U)NegativeNormal NegativeGlenbeigh HospitalComment on above:Performed By: #### 41555103, 2944244 ####[address] [address]Hbrrpnd (U)CLEARNormalClearGlenbeigh HospitalComment on above: Performed By: #### 84285338, 2502033 ####[address] [address]Fyuty (U)YELLOWNormalYellowGlenbeigh HospitalComment on above:Performed By: #### 35090382, 4378857 ####[address] [address] Epithelial cells.squamous LM.HPF (Urine sed) [#/Area]8-8Uvwvgs0-8KjxaecCleveland Clinic Euclid HospitalComment on above:Performed By: #### 44281510, 2891986 ####[facility] [address] [address]Jfdsizd Test strip (U) [Mass/Vol]NegativeNormalNegativeGlenbeigh HospitalComment on above:Performed By: #### 22278468, 1671522 ####[address] [address]Musfczknwv Ql (U)1+AbnormalNegative Glenbeigh HospitalComment on above:Performed By: #### 20784544, 7178457 ####[address] [address] Ketones (U) [Mass/Vol]NegativeNormalNegativeGlenbeigh HospitalComment on above:Performed By: #### 99248367, 1460417 ####[address] [address]Greeoxp.plasma/[place].RBC (Bld) [Mass ratio]9-54Kkuczd8-3Rezjry Holy Cross HospitalComment on above:Performed By: #### 74881166, 3453813 ####[address] [address]Jbfqk Ql (Urine sed)TRACENormalGlenbeigh HospitalComment on above:Performed By: #### 58792921, 5706831 ####[address] [address]Jhzjzru Ql (U)Negative NormalNegativeGlenbeigh HospitalComment on above:Performed By: #### 68740713, 4888287 ####[address] [address]bK (U)7.0 [pH]Invalid Interpretation Code5.0-9.0Glenbeigh HospitalComment on above:Performed By: #### 27658935, 1770520 ####[address] [address]Wvuqwcr (U) [Mass/Vol]NegativeNormalNegativeGlenbeigh HospitalComment on above: Performed By: #### 61513183, 8335688 ####[place] [address] [address]Crprqvnc gravity (U) [Rel density] <=1.005Invalid Interpretation Code1.005-1.030Glenbeigh HospitalComment on above:Performed By: #### 20655391, 2267719 ####[facility] [address] [address]Dpmb of Urine collection methodClean CatchNormalGlenbeigh HospitalComment on above:Performed By: #### 51040555, 8658880 ####[facility] [address] [address]Jjynrcyaiwed Qn (U)0.2 {Ta'U}/dLNormal0.0-1.0Glenbeigh HospitalComment on above:Performed By: #### 99891922, 8532904 ####[facility] [address] [address]ZWZ Auto Ql (U)3+AbnormalNegativeGlenbeigh HospitalComment on above: Performed By: #### 60021331, 2742375 ####[address] [address]ALC LM.HPF (Urine sed) [#/Area]/[HPF] Abnormal0-5Fisher Holy Cross HospitalComment on above:Performed By: #### 80190293, 7496109 ####[facility] [address] [address]AREVKXJRPSWiprrpl By: Aimee Barrett on 96-54-3794Mwvrpxtu LM Ql (Urine sed)Trace /HPFNormalTrace/HPFCHICKASAW [facility] UA Auto SSBilirubin Ql (U) Negative (11/05/23 1:09 PM)NormalNegativeCHICKASAW NATION [facility] UA Auto SSClarity (U)Clear (11/05/23 1:09 PM)NormalClearFST. JOHN [facility] U[facility] Auto SSColor (U)Yellow (11/05/23 1:09 PM)NormalYellowCHICKASAW NATION [facility]ICAL [facility] UA Auto SSEpithelial cells.squamous LM.HPF (Urine sed) [#/Area]0-2 /HPFNormal0-2/HPFCHICKASAW NATION MEDICAL [facility] UA Auto SSGlucose Test strip (U) [Mass/Vol]Negative (11/05/23 1:09 PM)NormalNegativeCHICKASAW [facility] UA Auto SSHemoglobin Ql (U)1+ *ABN* (11/05/23 1:09 PM)Invalid Interpretation CodeNegativeCHICKASAW [facility] UA Auto SSKetones (U) [Mass/Vol]Negative (11/05/23 1:09 PM)NormalNegativeCHICKASAW [facility] UA Auto SSLithium.plasma/[place].RBC (Bld) [Mass ratio]4-20 /HPFNormal0-3/HPFCHICKASAW NATION [facility] UA Auto SSMucus Ql (Urine sed)Trace (11/05/23 1:09 PM)NormalCHICKASAW NATION [facility] UA Auto SSNitrite Ql (U)Negative (11/05/23 1:09 PM)NormalNegativeCHICKAS[facility] Auto SSpH (U)7.0 *NA* (11/05/23 1:09 PM)Invalid Interpretation Code5.0 - 9.0[facility] Auto SSProtein (U) [Mass/Vol]Negative (11/05/23 1:09 PM)NormalNegativeCHICKASAW [facility] UA Auto SSSpecific gravity (U) [Rel density]<=1.005 *NA* (11/05/23 1:09 PM)Invalid Interpretation Code1.005 - 1.030[facility] U[facility] Auto SSUA Spec DescClean Catch (11/05/23 1:09 PM)NormalCHICKASAW NATION [facility] UA Auto SSUrobilinogen Qn (U)0.4336753 {Ta'U}/dLNormal0.0 - 1.0 EU/dLCHICKASAW NATION [facility] UA Auto SSWBC Auto Ql (U)3+ *ABN* (11/05/23 1:09 PM)Invalid Interpretation CodeNegativeCHICKASAW [facility] UA Auto SSWBC LM.HPF (Urine sed) [#/Area]/[HPF]Invalid Interpretation Code0-5/HPFCHICKASAW NATION MEDICAL C[facility] UA Auto SSeGFR on 71-40-8692IGC/1.73 sq M.predicted among non-blacks MDRD (S/P/Bld) [Vol rate/Area]mL/min/{1.73_m2}Normal>=59Glenbeigh HospitalComment on above: Order Comment: Order added by Discern Expert.Performed By: #### [id number], 5033416, 33607950, 6395607, 4567595, 2168912 ####[facility] [address] [place] [place] [address]QQW with Auto Differentialon 95-72-6746Kspiwnypq (Bld) [#/Vol][facility] HEALTHBasophils/100 WBC (Bld) 0 - 2 %[facility] HEALTHEosinophils (Bld) [#/Vol]0.16 10*3/uLBON SECOURS MERCY HEALTHEosinophils/100 WBC (Bld)2 %0 - 5 %[facility] Erythrocyte distribution width (RBC) [Ratio]14.0 %12.1 - 15.2 %[facility] HEALTHHematocrit (Bld) [Volume fraction]49.5 %High36 - 46 %[facility] HEALTHHemoglobin (Bld) [Mass/Vol]16.8 g/jIWngb05.0 - 16.0 g/dLBON [facility]RS MERCY HEALTHImmature granulocytes (Bld) [#/Vol][facility] HEALTHImmature granulocytes/100 WBC (Bld)0 %[facility] HEALTHInterpretation and review of laboratory resultsAbnormalBON [facility]OURS MERCY HEALTHLymphocytes/100 WBC (Bld)28 %15 - 40 %[facility] HEALTHLymphocytes/100 WBC (Bld)2.30 %[facility] HEALTHMCH (RBC) [Entitic mass]34.0 pg26 - 34 pgBON SECOURS [facility]CY HEALTH MCHC (RBC) [Mass/Vol]34.0 g/dL31 - 37 g/dLBON SECOURS MERCY HEALTHMCV (RBC) [Entitic vol]100.2 tSAhpw50 - 100 fLBON SECOURS MERCY HEALTHMonocytes/100 WBC (Bld)3 %Low4 - 8 %[facility] HEALTHMonocytes/100 WBC (Bld)0.25 %[facility] HEALTHMorphology Venancio (Bld) [Interp]Manual Differential Performed [facility] HEALTHNeutrophils/100 WBC (Bld)67 %47 - 75 %[facility]LEY HOSPITALFlatFrog Laboratories HEALTHPlatelets (Bld) [#/Vol]255 10*3/uLBON [facility]OURS [facility] HEALTHRBC (Bld) [#/Vol]4.94 10*6/uL4.0 - 5.2 m/uLBON SECLUTHERAN HOSPITALSegmented neutrophils/100 WBC (Bld)5.49 %[facility] HEALTHWBC other (Bld) [#/Vol] 8.2B[facility] HEALTHBON SECNORTH VALLEY HOSPITALY HEALTHComprehensive Metabolic Panel on 55-04-3129Uuvtcur [Mass/Vol]4.0 g/dL3.5 - 5.2 g/dLBON SECOURS [facility] HEALTHALP [Catalytic activity/Vol]80 U/L35 - 104 U/LBON [facility] HEALTHALT [Catalytic activity/Vol]18 U/L5 - 33 U/LBON [facility] HEALTHAnion gap [Moles/Vol]10 mmol/L9 - 17 mmol/LBON [facility]RS [facility]ERY HEALTHAST [Catalytic activity/Vol]21 U/LNINF - 32 U/LBON [facility] HEALTHBilirubin [Mass/Vol]0.7 mg/dL0.3 - 1.2 mg/dLB[facility] HEALTHCalcium [Mass/Vol]9.3 mg/dL8.6 - 10.4 mg/dLB[facility] HEALTHChloride [Moles/Vol]104 mmol/L98 - 107 mmol/L [facility] HEALTHCO2 [Moles/Vol]23 mmol/L20 - 31 mmol/LBON SECNOR[facility] VALLEY HOSPITALY HEALTHCreatinine [Mass/Vol]0.6 mg/dL0.5 - 0.9 mg/dLBON [facility] HEALTH GFR/1.73 sq M.predicted MDRD (S/P/Bld) [Vol rate/Area]- PINFBON [facility], BEACHWOODComment on above: These results are not intended [...] therapy that affects renal tubular secretion. Glucose [Mass/Vol]79 mg/dL70 - 99 mg/dLBON [facility]ART HOSPITALSmashrunInterpretation and review of laboratory resultsAbnormalBON [facility] [employer] HEALTHPotassium [Moles/Vol]3.7 mmol/L3.7 - 5.3 mmol/LBON [facility] HEALTHProtein [Mass/Vol] 6.9 g/dL6.4 - 8.3 g/dLBON [facility] MEDICAL CENTERFlatFrog Laboratories HEALTHSodium [Moles/Vol]137 mmol/L135 - 144 mmol/LBON [facility], BEACHWOODUrea nitrogen [Mass/Vol]4 mg/dLLow6 - 20 mg/dL [facility] HackerEarthUrea nitrogen/Creatinine [Mass ratio]7 mg/mgLow9 - 20BON [facility] Openfolio [facility] MEDICAL CENTERLipaseon 24-05-8633Gteheu [Catalytic activity/Vol]28 U/L13 - 60 U/LBON [facility] HackerEarthNo Panel Informationon 70-93-5233UKS [facility] HackerEarthXR CHEST (2 VW)on 08-11-2023 No acute cardiopulmonary disease [facility] RIS CONSOLIDATEDEXAM: XR CHEST (2 VW) HISTORY: cough COMPARISON: 12/29/2022. TECHNIQUE: PA and lateral views FINDINGS: PA and lateral views demonstrate the lung patel to be clear and well-expanded without a consolidative pulmonary infiltrate, pleural effusion, or pneumothorax. The hemidiaphragms are smooth and the costophrenic angles are clear. Heart size measures within normal limits. Acute bony disease is not seen. [facility] RIS García Tesfaye, DO - 08/11/2023 EXAM: XR CHEST (2 VW) [...] not seen. 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 TOXIN, PCR; Status:Active; Requested for:15Jul2023; Perform:Lab Services - Lab To Draw (Non-Blood Test); Due:13Oct2023;Ordered; For:Bile salt-induced diarrhea; Ordered By:Jing Troncoso; MRI Pancreas w/wo Contrast; Status:Hold For - Scheduling; Requested for:15Jul2023; Perform: Radiology Services Imaging; Due:13Oct2023;Ordered; For:Bile salt- induced diarrhea; Ordered By:Jing Troncoso; Radiologist to Determine Optimal Study : Y Does the patient have a Cochlear Implant, Pacemaker, Defibrilator, Pacing Wire, Brain Aneurysm Clip, Implanted Nerve or Bone Graft Simulator, Implanted Breast Tissue Cloth Printing Back Tender, Glucose Monitor, or Neulasta Device? : No Is the patient or breast feeding? : No What are the patient's signs and symptoms? : Right upper quadrant pain status postcholecystectomy elevated alk phos Pancreatic Elastase, Stool; Status:Active; Requested for:15Jul2023; Perform:Lab Services - Lab To Draw (Non-Blood Test); Due:13Oct2023;Ordered; For:Bile salt-induced diarrhea; Ordered By:Jing Troncoso; Bile salt-induced diarrhea, Sphincter of Oddi spasm Start: Cholestyramine 4 GM Oral Packet; MIX THE CONTENTS OF 1 POWDER PACKET WITH 2-6 OZ OF NONCARBONATED BEVERAGE AND SWALLOW TWICE DAILY Rx By: Jing Troncoso; Dispense: 5 Days ; #:60 Packet; Refill: 5;For: Bile salt- induced diarrhea, Sphincter of Oddi spasm; CHEIKH = N; Verified Transmission to [employer] #16; Last Updated By: System, Consert; 07/15/2023 2:11:41 PM Sphincter of Oddi spasm Start: Dicyclomine HCl - 20 MG Oral Tablet; TAKE 1 TABLET BY MOUTH EVERY 6 HOURS NEEDED Rx By: Jing Troncoso; Dispense: 30 Days ; #:40 Tablet; Refill: 2;For: Sphincter of Oddi spasm; CHEIKH =N; Verified Transmission to [employer] #16; Last Updated By: Marquis Alba; 32:11:41 PM Provider Impressions Treat for presumptive bile [...] diarrhea, nausea, occasional vomiting. History of Present IllnessShirin is a 33-year-old female status postcholecystectomy who presents today in follow-up for chronic pancreatitis. I reviewed the CT scan that she brought from [address] that was done 4 months ago. No evidence of pancreatic calcifications or pseudocyst. She has a bsent gallbladder does show some chronic bile duct dilatation but no obvious stone is noted. She states that it feels like her gallbladder is gone back she has pain in her right upper quadrant 20 minutes after meals and severe enough that radiates into her back and down her side. She states that inone of the visits with her family doctor [...] 2:52:04 PM Current Meds Medication NameInstruction Creon [id number] UNIT Oral Capsule Delayed Release ParticlesTAKE 1 CAPSULE 3 times daily Vitals Vital Signs Recorded: 15Jul2023 01:32PM Height5 ft 4 in Wceboa625 lb 2.62 oz BMI Wqzalcpwtb36.09 kg/m2 BSA Calculated1.71 Physical Exam Constitutional General appearance: In no acute distress . Eyes (more content not included)...Normal Touchnorthern navajo medical centerVITAMIN D 1,25-DIHYDROXYon 37-08-3611GCTLXCL D 1,25-ZBDXJFTOE65.3 pg/aLOuejyd11.9-79.3[facility] for RehabilitationComment on above:Result Comment: INTERPRETIVE INFORMATION: Vitamin D, 1,25-Dihydroxy This test is primarily indicated during patient evaluation for hypercalcemia and renal failure. A normal result does not rule out Vitamin D deficiency. The recommended test for diagnosing Vitamin D deficiency is Vitamin D 25-hydroxy. Performed By: [facility] [address] [place] [address] Human Resources Consultant: Ector King MD, PhDPerformed By: #### VTDDI #### [facility] [address] [place] [address]SAE AND DIFFERENTIALon 02-01-2023% AUTOMATED IMMATURE GRAN0.3 % Normal0.0 - 0.9[facility] for RehabilitationComment on above:Result Comment: Immature Granulocyte Count (IG) includes promyelocytes, myelocytes and metamyelocytes but does not include bands. Percent differential counts (%) should be interpreted in the context of the absolute cell counts (cells/L).Performed By: #### CBCDF #### [address] [address]Mmbrbahqn (Bld) [#/Vol]0.04 10*3/uLNormal0.00 - 0.10[facility] for RehabilitationComment on above:Performed By: #### CBCDF #### [address] [address]Vdztekkfb/100 WBC (Bld)0.4 %Normal0.0 - 2.0[facility] for RehabilitationComment on above:Performed By: #### CBCDF #### [address] [address]Vxtlddbgcuq (Bld) [#/Vol]0.17 10*3/uLNormal0.00 - 0.70[facility] RehabilitationComment on above:Performed By: #### CBCDF #### [address] [address]Mqyrsoiyvgl/100 WBC (Bld)1.8 %Normal0.0 - 6.0[facility] RehabilitationComment on above:Performed By: #### CBCDF #### [address] [address]Bvxxiymtfgq distribution width (RBC) [Ratio]13.9 %Exrfob92.5 - 14.5[facility] for RehabilitationComment on above:Performed By: #### CBCDF #### [address] [address]Bpnxbxwduq (Bld) [Volume fraction]43.8 %Iprafh80.0 - 46.0[facility] RehabilitationComment on above:Performed By: #### CBCDF #### [address] [address]Fgyojdwgnc (Bld) [Mass/Vol]14.5 g/nFYxhsbh44.0 - 16.0[facility] RehabilitationComment on above:Performed By: #### CBCDF #### [address] [address]Nyuwjvsozsu (Bld) [#/Vol]3.24 10*3/uLNormal1.20 - 4.80[facility] RehabilitationComment on above:Performed By: #### CBCDF #### [address] [address]Pveucwocbau/100 WBC (Bld)35.2 %Fccgcm82.0 - 44.0[facility] RehabilitationComment on above:Performed By: #### CBCDF #### [address] [address]VSMH (RBC) [Mass/Vol]33.1 g/cETglrxc18.0 - 36.0[facility] RehabilitationComment on above:Performed By: #### CBCDF #### [address] [address]YQV (RBC) [Entitic vol]101 kFHhkr44 - 100[facility] for RehabilitationComment on above:Performed By: #### CBCDF #### [address] [address]Dybbunmqy (Bld) [#/Vol]0.47 10*3/uLNormal0.10 - 1.00[facility] RehabilitationComment on above:Performed By: #### CBCDF #### [address] [address]Zcywtshfn/100 WBC (Bld)5.1 %Normal2.0 - 10.0[facility] RehabilitationComment on above:Performed By: #### CBCDF #### [address] [address]Omgywxlyimq (Bld) [#/Vol]5.26 10*3/uLNormal1.20 - 7.70[facility] RehabilitationComment on above:Result Comment: Percent differential counts (%) should be interpreted in the context of the absolute cell counts (cells/L).Performed By: #### CBCDF #### [address] [address]Uebnhjvbzij/100 WBC (Bld)57.2 %Xmdmvc39.0 - 80.0[facility] RehabilitationComment on above:Performed By: #### CBCDF #### [address] [address]Bmolbjjsd (Bld) [#/Vol]358 10*3/cKRyhzlf656 - 450UH Lee Medical CenterComment on above:Performed By: #### CBCDF #### [address] [address]YJR6.34 x10E12/LNormal4.00 - 5.20[facility] Comment on above:Performed By: #### CBCDF #### [address] [address]WCI (Bld) [#/Vol]9.2 10*3/uLNormal4.4 - 11.3[facility] RehabilitationComment on above:Performed By: #### CBCDF #### [address] [address]JBABZT DISEASE SEROLOGY PANELon 88-69-9471XNRDXKYRHJ GLIADIN PEPTIDE IGG<4Mvgyky9 - 14[facility] RehabilitationComment on above:Result Comment: False negative Deamidated Gliadin Peptide Antibody, IgG results can occur in patients already adhering to a gluten-free diet. Tissue Transglutaminase Antibody, IgA is the preferred test for screening patients with suspected Celiac Disease.Performed By: #### CELP1 #### [facility] [address] [place], [place] [address]CTO AB,IGG<6Mbqbiq3 - 14[facility] RehabilitationComment on above:Result Comment: False negative Tissue Transglutaminase Antibody, IgG results can occur in patients already adhering to a gluten-free diet. Tissue Transglutaminase Antibody, IgA is the preferred test for screening patients with suspected Celiac Disease.Performed By: #### CELP1 #### [facility] [address] [place], [place] [address]KLHXMZGHUW GLIADIN PEPTIDE IGA9 U/mLNormal0 - 14[facility] RehabilitationComment on above:Result Comment: False negative Deamidated Gliadin Peptide Antibody, IgA results can occur in patients already adhering to a gluten-free diet or patients with IgA deficiency. Tissue Transglutaminase Antibody, IgA is the preferred test for screening patients with suspected Celiac Disease.Performed By: #### CELP1 #### [facility] [address] [place], [place] [address]HDQ AB,IGA<4Dxxfca6 - 14[facility] RehabilitationComment on above:Result Comment: Celiac disease is unlikely. False negative Tissue Transglutaminase Antibody, IgA results can occur in approximately 10% of patients with celiac disease, patients already adhering to a gluten-free diet, or patients with IgA deficiency.Performed By: #### CELP1 #### [facility] [address] [place], [place] [address]VMZPFIESGSFAG PANELon 57-64-6764Miqbqjq [Mass/Vol]4.3 g/dL Normal3.4 - 5.0[facility] RehabilitationComment on above:Performed By: #### CMP #### [address] [address]BMK [Catalytic activity/Vol]57 U/MPqkpmk55 - 110[facility] RehabilitationComment on above:Performed By: #### CMP #### [address] [address]LRD [Catalytic activity/Vol]12 U/LNormal7 - 45[facility] RehabilitationComment on above:Result Comment: Patients treated with Sulfasalazine may generate falsely decreased results for ALT.Performed By: #### CMP #### [address] [address]Dpljk gap [Moles/Vol]11 mmol/VSjvuhq14 - 20[facility] RehabilitationComment on above:Performed By: #### CMP #### [address] [address]FEV [Catalytic activity/Vol]13 U/LNormal9 - 39[facility] RehabilitationComment on above:Performed By: #### CMP #### [address] [address]Hltbfmjkx [Mass/Vol]0.6 mg/dLNormal0.0 - 1.2[facility] RehabilitationComment on above:Performed By: #### CMP #### [address] [address]Hoecyuj [Mass/Vol]9.2 mg/dLNormal8.6 - 10.3[facility] RehabilitationComment on above:Performed By: #### CMP #### [address] [place] [address]Opbfizli [Moles/Vol]106 mmol/ERuqhch70 - 107[facility] RehabilitationComment on above:Performed By: #### CMP #### [address] [address]Nvhzcfvsoa [Mass/Vol]0.64 mg/dLNormal0.50 - 1.05[facility] RehabilitationComment on above:Performed By: #### CMP #### [address] [address]rRDK FEMALE>90Normal>90[facility] for RehabilitationComment on above:Result Comment: CALCULATIONS OF ESTIMATED GFR ARE PERFORMED USING THE 2020 CKD-EPI STUDY REFIT EQUATION WITHOUT THE RACE VARIABLE FOR THE IDMS-TRACEABLE CREATININE METHODS. https://jasn.asnjournals.org/content/early/ASN.4529895526Nczncpsfz By: #### CMP #### [address] [address]Nrwcfsr [Mass/Vol]74 mg/sSXrlwva04 - 99[facility] RehabilitationComment on above:Performed By: #### CMP #### [address] [address]TTX2 (Bld) [Moles/Vol]26 mmol/ZGrdmnv25 - 32[facility] for RehabilitationComment on above:Performed By: #### CMP #### [address] [address]Mmpxkcaco [Moles/Vol]3.6 mmol/LNormal3.5 - 5.3[facility] RehabilitationComment on above:Performed By: #### CMP #### [address] [address]Mfsfzmv [Mass/Vol]6.6 g/dLNormal6.4 - 8.2[facility] RehabilitationComment on above:Performed By: #### CMP #### [address] [address]Secdcj [Moles/Vol]139 mmol/OSlvoix268 - 145[facility] for RehabilitationComment on above:Performed By: #### CMP #### [address] [place], [place] [address]Fedj nitrogen [Mass/Vol]7 mg/dL02 Turner StreetComment on above:Performed By: #### CMP #### [address] [place], [place] [address]EV ABDOMEN AND PELVIS W IV CONTRASTon 34-76-5465EK ABDOMEN AND PELVIS W IV CONTRASTMRN: [id number] Patient Name: SHIRIN BURGOS STUDY: CT ABDOMEN AND PELVIS W IV CONTRAST; 02/01/2023 11:47 am INDICATION: Pancreatitis K86.1: Chronic pancreatitis. COMPARISON: None. ACCESSION NUMBER(S): [id number] ORDERING CLINICIAN: JING TRONCOSO TECHNIQUE: CT of [...] inflammatory changes. Unremarkable appendix. VESSELS: Grossly unremarkable. PERITONEUM/RETROPERITONEUM/LYMPH NODES: No retroperitoneal adenopathy. No ascites. BONES AND ABDOMINAL WALL: Grossly unremarkable. IMPRESSION: Status post hysterectomy. Small cystic structure in the right adnexa may represent a right ovarian cyst. Follow-up pelvic ultrasound to further evaluate as clinically warranted. Prior cholecystectomy. Prior appendectomy. Electronically signed by: Rich CHAUDHARYEast [facility] Abdomen and Pelvis with IV Contraston [id number] Abdomen and Pelvis W contrast IVPlease click on the link to view the study imagesNoAshley [place]ille [address] Work Phone: CT Abdomen and Pelvis W contrast IVNoAshley [place]ille [address] Work Phone: Complete Blood Count + Differentialon 02-01-2023 Basophils/100 WBC (Bld)0.4 %0.0 - 2.0[place] [address] Work Phone: Erythrocyte distribution width (RBC) [Ratio]13.9 %See [place] [address] Work Phone: Comment on above:Reference Range: 11.5 - 14.5 Hematocrit (Bld) [Volume fraction]43.8 %See [place] [address] Work Phone: Comment on above:Reference Range: 36.0 - 46.0 Hemoglobin (Bld) [Mass/Vol]14.5 g/dLSee [place] [address] Work Phone: Comment on above:Reference Range: 12.0 - 16.0 Lymphocytes/100 WBC (Bld)35.2 %[place] [address] Work Phone: Comment on above:Reference Range: 13.0 - 44.0MCHC (RBC) [Mass/Vol]33.1 g/dLSee [place] [address] Work Phone: Comment on above:Reference Range: 32.0 - 36.0MCV (RBC) [Entitic vol]101 fLabove high qjvfvtywl51 - 100[place] [address] Work Phone: Monocytes/100 WBC (Bld)5.1 %2.0 - 10.0[place] [address] Work Phone: Neutrophils/100 WBC (Bld)57.2 %[place] [address] Work Phone: Comment on above:Reference Range: 40.0 - 80.0Platelets (Bld) [#/Vol]358 10*3/uL150 - 450[place] [address] Work Phone: RBC (Bld) [#/Vol]4.34 {x10E12/L}[place] [address] Work Phone: Comment on above:Reference Range: 4.00 - 5.20WBC (Bld) [#/Vol]9.2 10*3/uL4.4 - 11.3MWilliam [place] [address] Work Phone: Complete Blood Count + Differential0.04 {x10E9/L}[place] [address] Work Phone: Comment on above:Reference Range: 0.00 - 0.10Complete Blood Count + Differential0.17 {x10E9/L}[place] [address] Work Phone: Comment on above:Reference Range: 0.00 - 0.70Complete Blood Count + Differential0.47 {x10E9/L}[place] [address] Work Phone: Comment on above:Reference Range: 0.10 - 1.00Complete Blood Count + Differential3.24 {x10E9/L}[place] [address] Work Phone: Comment on above:Reference Range: 1.20 - 4.80Complete Blood Count + Differential5.26 {x10E9/L}[place] [address] Work Phone: Comment on above:Reference Range: 1.20 - 7.70 Percent differential counts (%) should be interpreted in the context of the absolute cell counts (cells/L).Complete Blood Count + Differential1.8 %0.0 - 6.0[place] [address] Work Phone: Complete Blood Count + Differential0.3 %0.0 - 0.9[place] [address] Work Phone: Comment on above:Immature Granulocyte Count (IG) includes promyelocytes, myelocytes and metamyelocytes but does not include bands. Percent differential counts (%) should be interpreted in the context of the absolute cell counts (cells/L).IGG SUBCLASS 4on 24-70-5072MTW SUBCLASS 4132 mg/dLNormal3 - 200[facility] for RehabilitationComment on above:Performed By: #### IGGG4 #### [facility] [address] [place], [place] [address]Xjztzlizxu - Chemistry and Chemistry - challengeon 02-01-2023 Albumin BCP dye [Mass/Vol]4.3 g/dL3.4 - 5.0MP-[place] [address] Work Phone: ALP [Catalytic activity/Vol]57 U/L33 - 110[place] [address] Work Phone: ALT With P-5'-P [Catalytic activity/Vol]12 U/L7 - 45 [place] [address] Work Phone: Comment on above:Patients treated with Sulfasalazine may generate falsely decreased results for ALT.Anion gap [Moles/Vol]11 mmol/L10 - 20MP-[place] [address] Work Phone: AST With P-5'-P [Catalytic activity/Vol]13 U/L9 - 39 [place] [address] Work Phone: Bilirubin [Mass/Vol]0.6 mg/dL0.0 - 1.2MP-[place] [address] Work Phone: Calcium [Mass/Vol]9.2 mg/dL8.6 - 10.3MP-[place] [address] Work Phone: Chloride [Moles/Vol]106 mmol/L98 - 107MPAngela [place] [address] Work Phone: CO2 [Moles/Vol]26 mmol/L21 - 32MP-[place] [address] Work Phone: Creatinine [Mass/Vol]0.64 mg/dLSee BelowCory Ville [address] Work Phone: Comment on above:Reference Range: 0.50 - 1.05Glucose [Mass/Vol]74 mg/dL74 - 99MPAngela Ville [address] Work Phone: Potassium [Moles/Vol]3.6 mmol/L3.5 - 5.3MWilliam [place] [address] Work Phone: Protein [Mass/Vol]6.6 g/dL6.4 - 8.2MP-[place] [address] Work Phone: Sodium [Moles/Vol]139 mmol/L136 - 145[place] [address] Work Phone: Urea nitrogen [Mass/Vol]7 mg/dL6 - 23[place] [address] Work Phone: Laboratory - Serology - non-microon 72-28-1397Onfyxyx peptide IgA IA Qn (S)9 U/mL0 - 14[place] [address] Work Phone: Comment on above:False negative Deamidated Gliadin Peptide Antibody, IgA results can occur in patients already adhering to a gluten-free diet or patients with IgA deficiency. Tissue Transglutaminase Antibody, IgA is the preferred test for screening patients with suspected Celiac Disease.tTG IgA IA Qn (S)<10 - 14[place] [address] Work Phone: Comment on above:Celiac disease is unlikely. False negative Tissue Transglutaminase Antibody, IgA results can occur in approximately 10% of patients with celiac disease, patients already adhering to a gluten-free diet, or patients with IgA deficiency.tTG IgG IA Qn (S)<10 - 14- [place] [address] Work Phone: Comment on above:False negative Tissue Transglutaminase Antibody, IgG results can occur in patients already adheringto a gluten-free diet. Tissue Transglutaminase Antibody, IgA is the preferred test for screening patients with suspected Celiac Disease.No Panel Informationon 02-01-2023>90>90[place] [address] Work Phone: Comment on above:CALCULATIONS OF ESTIMATED GFR ARE PERFORMED USING THE 2020 CKD-EPI STUDY REFIT EQUATION WITHOUT THERACE VARIABLE FOR THE IDMS-TRACEABLE CREATININE METHODS.https://jasn.asnjournals.org/content//ASN.8700727086<10 - 14[place] [address] Work Phone: Comment on above:False negative Deamidated Gliadin Peptide Antibody, IgG results can occur in patients already adhering to a gluten-free diet. Tissue Transglutaminase Antibody, IgA is the preferred test for screeningpatients with suspected Celiac Disease.132 mg/dL3 - 200[place] [address] Work Phone: TSHon 39-28-0719JOU Qn0.60 m[IU]/LNormal0.44 - 3.98[facility] for RehabilitationComment on above:Result Comment: TSH testing is performed using different testing methodology at [facility] than at other [facility]. Direct result comparisons should only be made within the same method.Performed By: #### TSH2 #### [address] [address]SAY - Thyroid Stimulating Hormone, Serumon 15-63-5230EOJ Qn0.60 m[IU]/LSee BelowCory Ville [address] Work Phone: Comment on above:Reference Range: 0.44 - 3.98 TSH testing is performed using different testing methodology at [facility] than at other [facility]. Direct result comparisons should only be made within the same method.VITAMIN B12on 25-82-4914Wcmqqvxje (Vitamin B12) [Mass/Vol]63 pg/eXEef014 - 911[facility] for RehabilitationComment on above: Performed By: #### VTB12 #### [address] [address]Jscnosy B12, Serumon 15-71-8407Kxmtyrjbj (Vitamin B12) [Mass/Vol]63 pg/mLbelow low fwzxygnzl865 - 911MP-[place] [address] Work Phone: [phone]-Q 1,25-Dihydroxy, Levelon ,25- dihydroxyvitamin D3 [Mass/Vol]64.3 pg/mL19.9-79.3MP-[facility] 120 Work Phone: Comment on above:INTERPRETIVE INFORMATION: Vitamin D, 1,25-DihydroxyThis test is primarily indicated during patient evaluation for hypercalcemia and renal failure. A normal result does not rule out Vitamin D deficiency. The recommended test for diagnosing Vitamin D deficiency is Vitamin D 25-hydroxy.Performed By: [facility] [place] [address]Sgwibkqtzb Director: Ector King MD, PhDCholesterol [Mass/volume] in Serum or PlasmaOrdered By: Jan Carter on 12-09-7849Vopjbxsajdk [Mass/Vol]128 mg/oJ515-956YxzomnkwmSt. Rita'S HospitalComment on above:Chol less than 200 mg/dl low riskChol 201-239 mg/dl borderline riskChol 240 mg/dl and greater high riskCholesterol in LDL Calc [Mass/Vol]Ordered By: Jan Carter on 87-42-1489Eeglmyjfdhl in LDL [Mass/Vol]88 mg/dL0-100St. Rita'S HospitalComment on above:LDL ATP III CLASSIFICATIONLDL less than 100 mg/dL OptimalLDL 100-129 mg/dL Near or above pwaammbOQT466-213 mg/dL Borderline highLDL 160-189 mg/dL HighLDL greater than 189 mg/dL Very high Cholesterol in VLDL Calc [Mass/Vol]Ordered By: Jan Carter on 82-23-6916Egsocfkezke in VLDL [Mass/Vol]14 mg/dLSt. Rita'S HospitalLipid Panelon 19-94-9332Marldelsgqh [Mass/Vol]128 mg/vHScu672-601DpwyingqcSt. Rita'S HospitalComment on above:Result Comment: Chol less than 200 mg/dl low risk Chol 201-239 mg/dl borderline risk Chol 240 mg/dl and greater high riskPerformed By: #### [id number], TSH3 wRFLX, LIPID #### [facility] [address] [place] [address] USACholesterol in HDL [Mass/Vol]26 mg/wEFjz00-97VdhnhmzcrSt. Rita'S HospitalComment on above:Result Comment: HDL CHOL ATP-III CLASSIFICATION Cardiovascular Risk HDL > or equal to 60 mg/dL LOW HDL < 40 mg/dL HIGHPerformed By: #### [id number], TSH3 wRFLX, LIPID #### [facility] [address] [place] [address] USACholesterol.total/Cholesterol in HDL [Mass ratio]4.9 {ratio}Normal<5.0St. Rita'S HospitalComment on above:Performed By: #### [id number], TSH3 wRFLX, LIPID #### [facility] [address] [place] [address] USALDL Cholesterol,Sxwnkwjllb70 mg/dLNormal0-100St. Rita'S HospitalComment on above:Result Comment: LDL ATP III CLASSIFICATION LDL less than 100 mg/dL Optimal LDL 100-129 mg/dL Near or above optimal LDL 130-159 mg/dL Borderline high LDL 160-189 mg/dL High LDL greater than 189 mg/dL Very highPerformed By: #### [id number], TSH3 wRFLX, LIPID #### [facility] [address] [place] [address] USATriglyceride w/Apqnhc53 mg/jUEiafrp61-845ZynzzwymxSt. Rita'S HospitalComment on above:Result Comment: TRIG ATP III CLASSIFICATION TRIG less than 150 mg/dL Normal TRIG 150-199 mg/dL Borderline high TRIG 200-500 mg/dL High TRIG greater than 500 mg/dL Very high Standard traceable to the Center for Disease Conrtrol and Prevention (CDC) test method.Performed By: #### [id number], TSH3 wRFLX, LIPID #### [facility] [address] [place] [address] USAVLDL LVJWWGKPUWN24 mg/dLNormParma Community General HospitalComment on above:Performed By: #### [id number], TSH3 wRFLX, LIPID #### [facility] [address] [place] [address] USANo Panel InformationOrdered By: Jan Carter on 91-16-565335314747-Lvdamtt Vitamin D Total16.8 ng/wZ90-390NsvamkqheSt. Rita'S HospitalComment on above:VITAMIN D STATUS 25(OH)VITAMIN D RANGE (ng/mL) Deficient <20 Insufficient 20 to <30Idjwiivymg09 to 100Reference: Bishnu MF,Jolene DUDLEY, Delphine LOGAN, et al. Evaluation,treatment, and prevention of vitamin D deficiency; an Endocrine Society clinical practice guideline. JCEM. 2010; 96 (7):1911-30.Serum or plasma high density lipoprotein (HDL) cholesterol measurementOrdered By: Jan Carter on 41-30-7595Gixiviinssw in HDL [Mass/Vol]26 mg/uA88-67MrsnzjdcrSt. Rita'S HospitalComment on above:HDL CHOL ATP-III CLASSIFICATION Cardiovascular RiskHDL > or equal to 60 mg/dL LOWHDL < 40 mg/dL HIGHSerum or plasma total cholesterol/high density lipoprotein (HDL) cholesterol mass ratOrdered By: Jan Carter on 01-09-2023 Cholesterol.total/Cholesterol in HDL [Mass ratio]4.9 {ratio}<5.0[facility] DL <= 0.005 mIU/L QnOrdered By: Jan Carter on 84-81-9128GJL Qn0.52 m[IU]/L0.45-5.33St. Rita'S HospitalThyroid Stim Hormone w/Rflxon 70-46-5336Sxzbqyy Stim Hormone w/Rflx0.52 u[iU]/mLNormal 0.45-5.33St. Rita'S HospitalComment on above:Performed By: #### [id number], TSH3 wRFLX, LIPID #### [facility] [address] [place] [address] USATriglyceride [Mass/volume] in Serum or PlasmaOrdered By: Jan Carter on 29-20-1851Dswfosacqddb [Mass/Vol]72 mg/uF85-316 [facility]'S HospitalComment on above:TRIG ATP III CLASSIFICATIONTRIG less than 150 mg/dL NormalTRIG 150-199 mg/dL Borderline highTRIG 200-500 mg/dL High TRIG greater than 500 mg/dL Very highStandard traceable to the Center for Disease Conrtrol and Prevention (CDC) test method. Vitamin D 25 Hydroxy Totalon 35-60-4831Yjhmfyx D 25 Hydroxy Total16.8 ng/mLLow 30-100St. Rita'S HospitalComment on above:Result Comment: VITAMIN D STATUS 25(OH)VITAMIN D RANGE (ng/mL) Deficient <20 Insufficient 20 to <30 Sufficient 30 to 100 Reference: Bishnu MF,Jolene NC, Delphine LOGAN, et al. Evaluation,treatment, and prevention of vitamin D deficiency; an Endocrine Society clinical practice guideline. JCEM. 2010; 96(7):1911-30. PERFORMED BY: [place] [address] PATHOLOGIST CARPENTER REFRIGERATOR UNA CUENCA M.D.Performed By: #### [id number], TSH3 wRFLX, LIPID #### [place] [address] USABasophils Auto (Bld) [#/Vol]Ordered By: Jan Carter on 47-67-8420Bfbrjcqlz (Bld) [#/Vol]0.1 10*3/uL0.0-0.2FCleveland Clinic Euclid HospitalBasophils/100 WBC Auto (Bld)Ordered By: Jan Carter on 15-60-1953Kxeaonyae/100 WBC (Bld)0.8 %.St. Rita'S HospitalBody fluid albumin measurement (mass/volume)Ordered By: Jan Carter on 10-72-9724Dripzgv (Body fld) [Mass/Vol]3.3 g/dL3.2-5.5FCleveland Clinic Euclid HospitalCHEMISTRYOrdered By: SYSTEM SYSTEM on 17-97-3307Rhkqinaxj [Moles/Vol]3.9 mmol/LNormal3.5 - 5.3 mmol/LFTMC RemisolComplete Blood Count Auto Diffon 79-38-3093Mjemfhjph (Bld) [#/Vol]0.1 10*3/uLNormal0.0-0.2FCleveland Clinic Euclid HospitalComment on above:Result Comment: PERFORMED BY: [place] [address] PATHOLOGIST CARPENTER REFRIGERATOR UNA CUENCA M.D.Performed By: #### CMP, CBC #### [place] [address] USABasophils/100 WBC (Bld)0.8 %Normal.St. Rita'S HospitalComment on above:Performed By: #### CMP, CBC #### [place] [address] USAEosinophils (Bld) [#/Vol]0.2 10*3/uLNormal0.0-0.45 [facility]'S HospitalComment on above:Performed By: #### CMP, CBC #### [place] [address] USAEosinophils/100 WBC (Bld)1.9 %Normal.St. Rita'S HospitalComment on above:Performed By: #### CMP, CBC #### [place] [address] USAErythrocyte distribution width (RBC) [Ratio]12.4 %Normal 11.9-15.3FCleveland Clinic Euclid HospitalComment on above:Performed By: #### CMP, CBC #### [place] [address] USAHematocrit (Bld) [Volume fraction]39.0 %Oyyhnf70.0-46.4 [facility]'S HospitalComment on above:Performed By: #### CMP, CBC #### [place] [address] USAHemoglobin (Bld) [Mass/Vol]13.1 g/sXNpffwe99.8-15.4 [facility]'S HospitalComment on above:Performed By: #### CMP, CBC #### [place] [address] USALymphocytes (Bld) [#/Vol]4.0 10*3/uLNormal1.00-4.8 [facility]'S HospitalComment on above:Performed By: #### CMP, CBC #### [facility] [address] [place] [id number] USALymphocytes/100 WBC (Bld)48.4 %Normal.St. Rita'S HospitalComment on above:Performed By: #### CMP, CBC #### [facility] [address] [place] [address] USAH (RBC) [Entitic mass]33.1 nuKyadaj53.7-34.3FCleveland Clinic Euclid HospitalComment on above:Performed By: #### CMP, CBC #### [facility] [address] [place] [address] USAMCV (RBC) [Entitic vol]98.4 iBKibepr12-969RiiolryebSt. Rita'S HospitalComment on above:Performed By: #### CMP, CBC #### [facility] [address] [place] [address] USAMean Corpuscular HGB Conc33.6 g/fCClpotc92.0-35.0St. Rita'S HospitalComment on above:Performed By: #### CMP, CBC #### [facility] [address] [place] [address] USAMonocytes (Bld) [#/Vol]0.4 10*3/uLNormal0.0-0.8St. Rita'S HospitalComment on above:Performed By: #### CMP, CBC #### [facility] [address] [place] [id number] USAMonocytes/100 WBC (Bld)4.5 %Normal.St. Rita'S HospitalComment on above:Performed By: #### CMP, CBC #### [facility] [address] [place] [address] USANeutrophils (Bld) [#/Vol]3.7 10*3/uLNormal1.8-7.7FCleveland Clinic Euclid HospitalComment on above:Performed By: #### CMP, CBC #### [facility] [address] [place] [address] USANeutrophils/100 WBC (Bld)44.4 %Normal.St. Rita'S HospitalComment on above:Performed By: #### CMP, CBC #### [facility] [address] [place] [address] USANRBC%0.1 /100{WBC}Normal0-0.5FCleveland Clinic Euclid HospitalComment on above:Performed By: #### CMP, CBC #### [place] [address] USAPlatelet mean volume (Bld) [Entitic vol]8.3 fLNormal 6.3-10.7FCleveland Clinic Euclid HospitalComment on above:Performed By: #### CMP, CBC #### [place] [address] USAPlatelets (Bld) [#/Vol]249 10*3/sOKdenlh461-800AkepraiilSt. Rita'S HospitalComment on above:Performed By: #### CMP, CBC #### [place] [address] USARBC (Bld) [#/Vol]3.96 10*6/uLNormal3.60-5.00St. Rita'S HospitalComment on above:Performed By: #### CMP, CBC #### [place] [address] USAWBC (Bld) [#/Vol]8.3 10*3/uLNormal3.8-11.6FCleveland Clinic Euclid HospitalComment on above:Performed By: #### CMP, CBC #### [place] [address] USAComprehensive Metabolic Panelon 15-42-4326Hawthaw [Mass/Vol]3.3 g/dLNormal3.2-5.5FCleveland Clinic Euclid HospitalComment on above:Performed By: #### CMP, CBC #### [place] [address] USAAlbumin/Globulin [Mass ratio]1.5 {ratio}NormalSt. Rita'S HospitalComment on above:Performed By: #### CMP, CBC #### [facility] [address] [place] [id number] USAALP [Catalytic activity/Vol]50 U/RPmxptn60-81IothktknnSt. Rita'S HospitalComment on above:Performed By: #### CMP, CBC #### [facility] [address] [place] [address] USAALT [Catalytic activity/Vol]15 U/TJmopms76-80JwwcsmtwdSt. Rita'S HospitalComment on above:Performed By: #### CMP, CBC #### [facility] [address] [place] [address] USAAnion gap [Moles/Vol]10.7 mmol/LNormal6.0-15.0St. Rita'S HospitalComment on above:Performed By: #### CMP, CBC #### [facility] [address] [place] [id number] USAAST [Catalytic activity/Vol]14 U/FQvmbxt31-61HpqqxkuguSt. Rita'S HospitalComment on above:Performed By: #### CMP, CBC #### [facility] [address] [place] [address] USABilirubin [Mass/Vol]0.7 mg/dLNormal0.3-1.2FCleveland Clinic Euclid HospitalComment on above:Performed By: #### CMP, CBC #### [facility] [address] [place] [address] USACalcium [Mass/Vol]9.1 mg/dLNormal8.2-10.2FCleveland Clinic Euclid HospitalComment on above:Performed By: #### CMP, CBC #### [facility] [address] [place] [address] USAChloride [Moles/Vol]110 mmol/BXbhfbz46-697WtidsyptiSt. Rita'S HospitalComment on above:Performed By: #### CMP, CBC #### [facility] [address] [place] [address] USACO2 [Moles/Vol]22.4 mmol/EWzkaoh28.0-30.0St. Rita'S HospitalComment on above:Performed By: #### CMP, CBC #### [facility] [address] [place] [address] USACreatinine [Mass/Vol]0.55 mg/dLNormal0.44-1.03St. Rita'S HospitalComment on above:Performed By: #### CMP, CBC #### [facility] [address] [place] [address] USACreatinine Clr Calc Jzixcgxp275.63NoFayette County Memorial HospitalComment on above:Result Comment: PERFORMED BY: [facility] [address] [place] [address] PATHOLOGIST CARPENTER REFRIGERATOR UNA CUENCA M.D.Performed By: #### CMP, CBC #### [place] [address] USAEstimated GFR ( Rachna> 60NoFayette County Memorial HospitalComment on above:Result Comment: GFR estimated reference range: According to KDOQI guidelines, <60 ml/min/1.73m2 is sufficient to diagnose a patient with chronic kidney disease.Performed By: #### CMP, CBC #### [facility] [address] [place] [address] USAEstimated GFR (Non- Am> 60Trinity Health SystemComment on above:Performed By: #### CMP, CBC #### [place] [address] USAGlobulin (S) [Mass/Vol]2.2 g/dLNoFayette County Memorial HospitalComment on above:Performed By: #### CMP, CBC #### [facility] [address] [place] [id number] USAGlucose [Mass/Vol]91 mg/cCBbnnyy87-543UrnjenroeSt. Rita'S HospitalComuniversity of michigan health on above:Result Comment: Random Glucose Reference Range is dependent on time and content of last meal. Glucose of more than 200 mg/dL in a nonstressed, ambulatory subject supports the diagnosis of Diabetes Mellitus. ADA recommended reference rangePerformed By: #### CMP, CBC #### [facility] [address] [place] [address] USAPotassium [Moles/Vol]4.1 mmol/LNormal3.5-5.1FCleveland Clinic Euclid HospitalComment on above:Performed By: #### CMP, CBC #### [facility] [address] [place] [id number] USAProtein [Mass/Vol]5.5 g/dLLow6.1-7.9St. Rita'S HospitalComment on above:Performed By: #### CMP, CBC #### [facility] [address] [place] [address] USASodium [Moles/Vol]139 mmol/YBojsdg380-047YzdnwasfcSt. Rita'S HospitalComment on above:Performed By: #### CMP, CBC #### [facility] [address] [place] [address] USAUrea nitrogen [Mass/Vol]3 mg/dLLow9-23St. Rita'S HospitalComment on above:Performed By: #### CMP, CBC #### [facility] [address] [place] [address] USACreatinine and Glomerular filtration rate.predicted panel (S/P/Bld)Ordered By: Jan Carter on 23-40-4700Kecrfcuvrd [Mass/Vol] 0.55 mg/dL0.44-1.03St. Rita'S HospitalEosinophils Auto (Bld) [#/Vol]Ordered By: Jan Carter on 00-89-4496Kayboyfjlgv (Bld) [#/Vol] 0.2 10*3/uL0.0-0.45St. Rita'S HospitalEosinophils/100 WBC Auto (Bld)Ordered By: Jan Carter on 97-80-7692Jghgcfpblhb/100 WBC (Bld)1.9 %.St. Rita'S HospitalErythrocyte distribution width Auto (RBC) [Ratio]Ordered By: Jan Carter on 55-90-6581Hnhlhzmongp distribution width (RBC) [Ratio]12.4 %11.9-15.3FCleveland Clinic Euclid HospitalEstimated glomerular filtration rate (GFR) non- AmericanOrdered By: Jan Carter on 91-04-5042CPV/1.73 sq M.predicted among non-blacks MDRD (S/P/Bld) [Vol rate/Area]> 60 mL/MinSt. Rita'S HospitalGlobulin Calc (S) [Mass/Vol]Ordered By: Jan Carter on 15-86-0774Ffnvbdaz (S) [Mass/Vol] 2.2 g/dLSt. Rita'S HospitalHematocrit Auto (Bld) [Volume fraction] Ordered By: Jan Carter on 96-39-2912Brkupsizbu (Bld) [Volume fraction]39.0 %34.0-46.4FCleveland Clinic Euclid HospitalHemoglobin [Mass/volume] in BloodOrdered By: Jan Carter on 30-36-3286Yalqtbxcmi (Bld) [Mass/Vol]13.1 g/dL11.8-15.4FCleveland Clinic Euclid HospitalLeukocytes [#/volume] corrected for nucleated erythrocytes in Blood by Automated coun Ordered By: Jan Carter on 79-96-9915QRZ corrected for nucl RBC Auto (Bld) [#/Vol]8.3 10*3/uL3.8-11.6FCleveland Clinic Euclid HospitalLymphocytes Auto (Bld) [#/Vol]Ordered By: Jan Carter on 39-40-0369Ldmakrwjogk (Bld) [#/Vol]4.0 10*3/uL1.00-4.8St. Rita'S HospitalLymphocytes/100 WBC Auto (Bld)Ordered By: Jan Carter on 77-30-4321Gouwpppsotl/100 WBC (Bld)48.4 %.[facility] Auto (RBC) [Entitic mass] Ordered By: Jan Carter on 53-05-7799MPV (RBC) [Entitic mass]33.1 pg 24.7-34.3FHocking Valley Community Hospital Auto (RBC) [Mass/Vol]Ordered By: Jan aCrter on 10-65-6028IPYR (RBC) [Mass/Vol]33.6 g/dL32.0-35.0 [facility]'S HospitalMCV Auto (RBC) [Entitic vol]Ordered By: Jan Carter on 21-71-6746ZDW (RBC) [Entitic vol]98.4 qL83-241GcbnduqwySt. Rita'S HospitalMonocytes Auto (Bld) [#/Vol]Ordered By: Jan Carter on 64-41-1659Oczlyeura (Bld) [#/Vol]0.4 10*3/uL0.0-0.8St. Rita'S HospitalMonocytes/100 WBC Auto (Bld)Ordered By: Jan Carter on 39-75-7622Ikgvqvvmm/100 WBC (Bld)4.5 %.St. Rita'S HospitalNeutrophils Auto (Bld) [#/Vol]Ordered By: Jan Carter on 98-94-0547Plfvqkbywst (Bld) [#/Vol]3.7 10*3/uL1.8-7.7FCleveland Clinic Euclid HospitalNeutrophils/100 WBC Auto (Bld)Ordered By: Jan Carter on 17-28-8345Yzxrwugrmsb/100 WBC (Bld)44.4 %.[facility]'S HospitalNo Panel InformationOrdered By: Jan Carter on 17-28-9303Ynzpefzxk GFR ()> 60 mL/MinSt. Rita'S HospitalComment on above: GFR estimated reference range: According to KDOQI guidelines, <60 ml/min/1.73m2 is sufficient todiagnose a patient with chronic kidney disease.Pharmacy Creatinine Clearance (Kfej395.63St. Rita'S HospitalNucleated erythrocytes [Presence] in Blood by Automated countOrdered By: Jan Carter on 71-94-0269Zogabctqo RBC Auto Ql (Bld)0.1 /100{WBC}0-0.5FCleveland Clinic Euclid HospitalPlatelet mean volume Auto (Bld) [Entitic vol]Ordered By: Jan Carter on 09-49-1531Gtyihtxg mean volume (Bld) [Entitic vol]8.3 fL6.3-10.7FCleveland Clinic Euclid HospitalPlatelets Auto (Bld) [#/Vol]Ordered By: Jan Carter on 58-24-5644Cbxzhgcge (Bld) [#/Vol]249 10*3/wL275-124 [facility]S HospitalProtein [Mass/volume] in Serum or PlasmaOrdered By: Jan Carter on 35-90-8416Asnngin [Mass/Vol]5.5 g/dL6.1-7.9 [facility] HospitalRBC Auto (Bld) [#/Vol]Ordered By: Jan Carter on 38-85-4942OQO (Bld) [#/Vol]3.96 10*6/uL3.60-5.00[facility] Hospitalerum or plasma alanine aminotransferase measurement without P-5'-P (enzymatic activiOrdered By: Jan Carter on 61-09-3500VVA No additional P-5'-P [Catalytic activity/Vol]15 U/F06-78CqqfppeyoAvita Health System Bucyrus Hospitalerum or plasma albumin/globulin mass ratioOrdered By: Jan Carter on 36-77-6210Ocalcsl/Globulin [Mass ratio]1.5 {ratio}[facility]cy[facility] Hospitalerum or plasma alkaline phosphatase measurement (enzymatic activity/volume)Ordered By: Jan Carter on 23-59-4629XCN [Catalytic activity/Vol]50 U/D80-49IftkkvrilAvita Health System Bucyrus Hospitalerum or plasma anion gap determinationOrdered By: Jan Carter on 01-08-2023 Anion gap [Moles/Vol]10.7 mmol/L6.0-15.0[facility] Hospitalerum or plasma aspartate aminotransferase measurement (enzymatic activity/volume) Ordered By: Jan Carter on 04-10-8682EEE [Catalytic activity/Vol]14 U/Q19-30EdmferxkxAvita Health System Bucyrus Hospitalerum or plasma calcium measurement (mass/volume)Ordered By: Jan Carter on 25-83-9828Fjqobtl [Mass/Vol] 9.1 mg/dL8.2-10.2FSouthern Ohio Medical Centererum or plasma chloride measurement (moles/volume)Ordered By: Jan Carter on 01-08-2023 Chloride [Moles/Vol]110 mmol/M98-891UlkicininAvita Health System Bucyrus Hospitalerum or plasma glucose measurement (mass/volume)Ordered By: Jan Crater on 72-09-7732Aynnmny [Mass/Vol]91 mg/cC23-195FcydivxnlSt. Rita'S Hospital Comment on above:ADA recommended reference rangeRandom Glucose Reference Range is dependent on time and content of last meal. Glucose of more than 200 mg/dL in a nonstressed, ambulatory subject supports the diagnosisof Diabetes Mellitus. Serum or plasma potassium measurement (moles/volume)Ordered By: Jan Carter on 77-42-5731Blybosllp [Moles/Vol]4.1 mmol/L3.5-5.1FSouthern Ohio Medical Centererum or plasma sodium measurement (moles/volume)Ordered By: Jan Carter on 70-99-6363Hgfbpg [Moles/Vol]139 mmol/E078-779AyxmswpoeAvita Health System Bucyrus Hospitalerum or plasma total bilirubin measurement (mass/volume) Ordered By: Jan Carter on 14-95-9138Hxwkfywgn [Mass/Vol]0.7 mg/dL 0.3-1.2FSouthern Ohio Medical Centererum or plasma total carbon dioxide measurement (moles/volume)Ordered By: Jan Carter on 48-66-4952CS7 [Moles/Vol]22.4 mmol/L22.0-30.0[facility] Hospitalerum or plasma urea nitrogen measurement (mass/volume)Ordered By: Jan Carter on 01-73-7631Ajkv nitrogen [Mass/Vol]3 mg/dL9-23[facility] WBC Auto (Bld) [#/Vol]Ordered By: Jan Carter on 50-05-8997ZPR (Bld) [#/Vol]8.3 10*3/uL3.8-11.6FCleveland Clinic Euclid HospitalCHEMISTRYOrdered By: SYSTEM SYSTEM on 08-40-0328Twtnbfgbaxfwk [Mass/Vol]microgram/mLLow15 - 30 mcg/mL [facility] RemisolAlbumin [Mass/Vol]3.8 g/dLNormal3.3 - 5.0 gm/dLFT[facility] Remisol Albumin/Globulin [Mass ratio]1.4 {ratio}Normal1.1 - 2.2[facility] RemisolALP [Catalytic activity/Vol]56 [iU]/qOanhqu87 - 98 Int._Unit/LFT[facility] RemisolALT No additional P-5'-P [Catalytic activity/Vol]14 [iU]/dNormal6 - 46 Int._Unit/LFT[facility] RemisolAnion gap [Moles/Vol]14 mmol/LNormal6 - 16 mEq/L[facility] RemisolAST [Catalytic activity/Vol]13 [iU]/dNormal5 - 43 Int._Unit/LFT[facility] RemisolBilirubin [Mass/Vol]0.6 mg/dLNormal0.0 - 1.1 mg/dLFT[facility] RemisolCalcium [Mass/Vol]8.8 mg/dL Low8.9 - 11.1 mg/dLFT[facility] RemisolChloride [Moles/Vol]108 mmol/DQomygo675 - 111 mmol/LFT[facility] RemisolCO2 [Moles/Vol]19 mmol/LLow21 - 31 mmol/L[facility] Remisol Creatinine [Mass/Vol]0.5 mg/dLNormal0.5 - 1.3 mg/dLFT[facility] RemisolEthanol [Mass/Vol]mg/dLNormal<=7mg/dLFT[facility] RemisolGFR/1.73 sq M.predicted among blacks MDRD (S/P/Bld) [Vol rate/Area]mL/min/1.73 q3Zvtsma>=59mL/min/1.73 m2[facility] Chem S GFR/1.73 sq M.predicted among non-blacks MDRD (S/P/Bld) [Vol rate/Area] mL/min/1.73 x6Zxvtrp>=59mL/min/1.73 m2FT Chem SGlobulin (S) [Mass/Vol]2.7 g/dL Normal1.4 - 4.0 gm/dLFT[facility] RemisolGlucose [Mass/Vol]127 mg/bDMyreje89 - 199 mg/dL [facility] RemisolPotassium [Moles/Vol]3.1 mmol/LLow3.5 - 5.3 mmol/L[facility] Remisol Protein [Mass/Vol]6.5 g/dLNormal6.0 - 7.8 gm/dLFT[facility] RemisolSalicylates [Mass/Vol]mg/dLLow6 - 29 mg/dLFT[facility] RemisolSodium [Moles/Vol]138 mmol/WSjjzgi744 - 145 mmol/LFT[facility] RemisolUrea nitrogen [Mass/Vol]mg/dLNormal5 - 21 mg/dLFT[facility] RemisolUrea nitrogen/Creatinine [Mass ratio]Unable to CalculateInvalid Interpretation Code10 - 20[facility] RemisolAmphetamines Screen method >1000 ng/mL Ql (U)Negative (01/07/23 4:04 PM)NormalNegativeFT[facility] RemisolBarbiturates Screen Ql (U)Negative (01/07/23 4:04 PM)NormalNegativeFT[facility] RemisolBenzodiazepines Ql (U)Negative (01/07/23 4:04 PM)NormalNegativeFT[facility] RemisolCocaine Ql (U)Negative (01/07/23 4:04 PM)NormalNegativeFT[facility] RemisolOpiates Screen Ql (U)Negative (01/07/23 4:04 PM)NormalNegativeFT[facility] RemisolPhencyclidine Screen method >25 ng/mL Ql (U)Negative (01/07/23 4:04 PM)NormalNegativeFT[facility] RemisolTetrahydrocannabinol Screen method >50 ng/mL Ql (U)Positive 1 *ABN* (01/07/23 4:04 PM)Invalid Interpretation CodeNegativeFT[facility] RemisolComment on above:Result Comment: Unconfirmed by alternate method\No confirmation requested by Physican\Results verified by repeat analysis\Critical Result UD_THC:POS Called to ZANDER PICKETT AT by ANA Ro For Confirmation at: 01/07/2023 16:59:15HEMATOLOGYOrdered By: SYSTEM SYSTEM on 01-07-2023 Basophils/100 WBC (Bld)0.5 %Normal0.0 - 2.0 %[facility] HemeAutoSSBasophils/Leukocytes Auto (Bld) [Pure # fraction]0.1 E9/LNormal0.0 - 0.2 E9/LFTMC HemeAutoSS Eosinophils/100 WBC (Bld)0.3 %Normal0.0 - 8.0 %[facility] HemeAutoSS Eosinophils/Leukocytes Auto (Bld) [Pure # fraction]0.0 E9/LNormal0.0 - 0.5 E9/L [facility] HemeAutoSSLymphocytes/100 WBC (Bld)18.1 %Ckfyrj74.0 - 50.0 %[facility] HemeAutoSS Lymphocytes/Leukocytes Auto (Bld) [Pure # fraction]2.5 E9/LNormal1.0 - 4.0 E9/L [facility] HemeAutoSSMonocytes/100 WBC (Bld)3.4 %Low4.0 - 14.0 %[facility] HemeAutoSS Monocytes/Leukocytes Auto (Bld) [Pure # fraction]0.5 E9/LNormal0.2 - 1.0 E9/L [facility] HemeAutoSSNeutrophils/100 WBC (Bld)77.7 %High36.0 - 75.0 %[facility] HemeAutoSS Neutrophils/Leukocytes Auto (Bld) [Pure # fraction]10.9 E9/LHigh2.0 - 7.5 E9/L [facility] HemeAutoSSHEMATOLOGYOrdered By: Altagracia Arizmendi on 86-38-5477Tqgiomudmxa distribution width (RBC) [Ratio]12.1 %Inqaya44.9 - 14.2 %[facility] HemeAutoSS Hematocrit (Bld) [Volume fraction]42.0 %Bnjayb64.0 - 46.0 %[facility] HemeAutoSS Hemoglobin (Bld) [Mass/Vol]13.9 g/uUAegqry18.0 - 16.0 gm/dLFTMC HemeAutoSSMCH (RBC) [Entitic mass]32.7 neYhytfh60.0 - 34.0 pgFTMC HemeAutoSSMCHC (RBC) [Mass/Vol]33.1 g/vOLzzawu46.4 - 36.0 gm/dLFTMC HemeAutoSSMCV (RBC) [Entitic vol] 98.8 lSQmllen37.0 - 100.0 fLCHICKASAW NATION MEDICAL CENTER – [facility] HemeAutoSSPlatelet mean volume (Bld) [Entitic vol]8.1 fLNormal6.4 - 10.8 fLCHICKASAW NATION MEDICAL CENTER [facility] HemeAutoSSPlatelets (Bld) [#/Vol]263.0 E9/L Nywkij501.0 - 500.0 E9/LFT[facility] HemeAutoSSRBC (Bld) [#/Vol]4.3 E12/LNormal4.3 - 5.9 E12/LFT[facility] HemeAutoSSWBC corrected for nucl RBC Auto (Bld) [#/Vol]14.0 E9/LHigh 4.0 - 11.0 E9/LFT[facility] HemeAutoSSMICRO OTHER TESTSOrdered By: Mamta Hurd on 85-17-6894Imwzb COV Int NEG CtlPass (01/07/23 11:44 PM)NormalCHICKASAW NATION MEDICAL [facility] Man SeroRapid COV Int POS CtlPass (01/07/23 11:44 PM)NormalCHICKASAW NATION MEDICAL [facility] Man SeroSARS-CoV+SARS-CoV-2 (COVID-19) Ag IA.rapid Ql (Resp)Not Detected (01/07/23 11:44 PM)NormalNot DetectedCHICKASAW NATION MEDICAL [facility] Man SeroSEROLOGYOrdered By: Rimma Erickson on 05-49-9104Rqac hCG QlNegative (01/07/23 4:13 PM)NormalCHICKASAW NATION MEDICAL [facility] Man SeroInitial Visit (Gastroenterology)on 96-50-4729Rwbrbxs Visit (Gastroenterology)Diagnoses/Problems Assessed Chronic pancreatitis (577.1) (K86.1) Orders Chronic pancreatitis Start: Creon 22217-40921 UNIT Oral Capsule Delayed Release Particles; TAKE 1 CAPSULE 3 times daily Rx By: Jing Troncoso; Dispense: 0 Days ; #:48 Capsule; Refill: 0;For: Chronic pancreatitis; CHEIKH = N;Dispense Sample CELIAC DISEASE SEROLOGY PANEL; Status:Active; Requested [...] family doctor regarding lung nodules noted at [facility]. Discussed smoking cessation, not inclined to begin at this time. Patient not currently involved in AA is to begin new program as she is recently moved to [place]. Check routine labs begin Creon 36,000 units [...] to the toilet bowl. History of Present Tjustnu35-wacz-ezy female with longstanding history of alcohol abuse quit drinking 7 months ago last drink was July 09, 2022. [facility] for[facility] alcoholic intoxication. History of prior hospitalizations and evaluation for pancreatitis. CTscan at that time showed calcifications along the pancreas with fatty liver no evidence of cirrhosis per patient unable to pull up imaging on [facility]. She presents today to establish care. [...] No Reported Medications Vitals Vital Signs Recorded: 38Poe6008 02:50PM Heart Rate92 Ckvolilmuza93 Fkdegrij053 Diasto (more content not included)...NormalUH TouchworksXR CHEST (2 VW)on 12-29-2022 Nonacute two-view chest. [facility] RIS CONSOLIDATEDEXAM: XR CHEST (2 VW) HISTORY: Reason for exam:->cough COMPARISON: Two-view chest from 12/21/2016. TECHNIQUE: Frontal and lateral films were done of the chest. FINDINGS: Trachea, mediastinum and heart size are unremarkable. The lungs are clear and well aerated. No infiltrate or nodule or effusion or pneumothorax is noted. Diaphragm and bony elements are intact. [facility] RIS Jude Hull, DO - 12/29/2022 EXAM: XR CHEST (2 VW) HISTORY: Reason for exam:->cough COMPARISON: Two-view chest from 12/21/2016. TECHNIQUE: Frontal and lateral films were done of the chest. FINDINGS: Trachea, mediastinum and heart size are unremarkable. The lungs are clear and well aerated. No infiltrate or nodule or effusion or pneumothorax is noted. Diaphragm and bony elements are intact. IMPRESSION: Nonacute two-view chest. [employer] Phone: radiology Study observation (narrative)[employer] Phone: XR CHEST (2 VW)Ordered By: Jude Tony on 97-36-4129[employer] Phone: Progress Noteson 59-99-7540Pkfueayivldwg Authentication Interface Message TextEMERGENCY TRIAGE, TREAT AND TRANSPORT (ET3) DOCUMENTATION OF TELEHEALTH VISIT Date / Time: 10/31/2022 / 1315 Name: Shirin Burgos : 1990 SSN: [id number] EMS Agency: [facility] [x] Verbal consent obtained [] Implied consent - patient with potential emergency medical condition requiring assessment of capacity to refuse treatment and/or transport VITAL SIGNS: see flowsheet documentation Reason for Telehealth Visit: Chief Complaint Patient presents with Abdominal pain History of Present Ilness: 32 yo female w/ PMH of pancreatitis called EMS for abdominal pain Started today. Similar to pancreatitis. /10 does not radiate Reports occassional bloody stools. Pt now declining transport and would like to go by private vehicle to [facility]. Additional pertinent PMHx, SocHx, FamHx: PMH [...] Disposition Reported: Same ET3 Encounter Completed by: Jeovanny ZuletaOhiohealth Southeastern Medical Center BView System AMYLASEon 87-56-4095Joizffn [Catalytic activity/Vol]124 U/LCritically xdvb16-586 The Comment on above:Performed By: #### CMP, LAURYN, LIPA #### Laboratory [address] [address] [address] Nick Musa AUTO DIFFon 87-69-2205COIO #0.0 103/ulNormal0.0-0.1The Comment on above:Performed By: #### CBC #### Laboratory [address] [address] [address] Nick PerezBasophils/100 WBC (Bld)0.3 %Normal0.2-2.0The Comment on above:Performed By: #### CBC #### Laboratory [address] [address] [address] Nick Ledesma #0.1 103/ulNormal0.0-0.7The Comment on above: Performed By: #### CBC #### Laboratory [address] [address] [address] Nick Pickardosinophils/100 WBC (Bld)0.7 %Critically low0.9-7.0The Comment on above:Performed By: #### CBC #### Laboratory [address] [place] [address] Dr. Nick Pickardrythrocyte distribution width (RBC) [Ratio]12.9 %Zprfzw39.0-15.0 The Comment on above:Performed By: #### CBC #### Laboratory [address] [place] [address] Dr. Nick PerezHematocrit (Bld) [Volume fraction]45.7 %Waexzv42.0-48.0The Manteca HospitalComment on above:Performed By: #### CBC #### Laboratory [address] [place] [address] Dr. Nick PerezHemoglobin (Bld) [Mass/Vol]15.9 g/gUKacdum39.0-16.0The Comment on above:Performed By: #### CBC #### Laboratory [address] [place] [address] Dr. Nick Booth #0.04 10e3/ulCritically high0.00-0.03The Comment on above:Performed By: #### CBC #### Laboratory [address] [place] [address] Dr. Nick Booth %0.3 %Normal0.0-0.5The Comment on above: Performed By: #### CBC #### Laboratory [address] [place] [address] Dr. Nick DiegoH #3.5 103/ulNormal1.2-3.8The Comment on above:Performed By: #### CBC #### Laboratory [address] [place] [address] Dr. Nick Alvesmphocytes/100 WBC (Bld)25.5 %Dbwhku91.5-60.0The Comment on above:Performed By: #### CBC #### Laboratory [address] [place] [address] Dr. Nick PetersonUAL DIFF REQNONormalThe Comment on above: Performed By: #### CBC #### Laboratory [address] [place] [address] Dr. Nick Roe (RBC) [Entitic mass]34.8 pgCritically high26.7-34.0The Comment on above:Performed By: #### CBC #### Laboratory [address] [place] [address] Dr. Nick Roe (RBC) [Mass/Vol]34.8 g/pWBitlry44.9-35.2The Comment on above:Performed By: #### CBC #### Laboratory [address] [place] [address] Dr. Nick Roe (RBC) [Entitic vol]100.0 fLCritically high81.0-99.0The Comment on above:Performed By: #### CBC #### Laboratory [address] [place] [address] Dr. Nick Taylor #0.7 103/ulNormal0.3-0.8The Comment on above:Performed By: #### CBC #### Laboratory [address] [place] [address] Dr. Nick Gusmanocytes/100 WBC (Bld)5.0 %Normal1.7-12.0[facility] Comment on above:Performed By: #### CBC #### Laboratory [address] [place] [address] Dr. Nick Bunch #9.4 103/ulCritically high1.4-6.5The Comment on above:Performed By: #### CBC #### Laboratory [address] [place] [address] Dr. Nick Nuñezutrophils/100 WBC (Bld)68.2 %Vghkgn57.0-75.0The Comment on above:Performed By: #### CBC #### Laboratory [address] [place] [address] Dr. Nick Delgadolet mean volume (Bld) [Entitic vol]9.4 fLCritically low 9.5-13.5The Comment on above:Performed By: #### CBC #### Laboratory [address] [place] [address] Dr. Nick PerezPLT260 103/mcObgnvh747-474Lng Comment on above: Performed By: #### CBC #### Laboratory [address] [place] [address] Dr. Nick PerezRBC4.57 106/ulNormal4.20-5.40The Comment on above:Performed By: #### CBC #### Laboratory [address] [place] [address] Dr. Nick PerezWBC13.8 103/ulCritically high4.0-11.0The Comment on above:Performed By: #### CBC #### Laboratory [address] [place] [address] Dr. Nick PerezCT ABD/PELV W CONon 05-48-6806CP ABD/PELV W CONEXAMINATION: CT ABD/PELV W CON HISTORY: GENERALIZED ABDOMINAL PAIN nausea [...] Electronically authenticated by: DIANA HERNANDEZ Date: 2022-07-16 02:[address] [place] [address] URINE PROFILEon 97-32-7853Cthicuwbn Ql (U)NegativeNormal NEGATIVEWadsworth-Rittman HospitalComment on above:Performed By: #### ERUR #### Laboratory [address] [place] [address] Dr. Nick Bruno (U)CLEARNormalCLEARWadsworth-Rittman HospitalComment on above: Performed By: #### ERUR #### Laboratory [address] [place] [address] Dr. Nick Otero (U)LT. YELLOWNormalYELLOWWadsworth-Rittman HospitalComment on above:Performed By: #### ERUR #### Laboratory [address] [place] [address] Dr. Nick Schmid micrscopic examination will be performed if indicated. NormalWadsworth-Rittman HospitalComment on above:Performed By: #### ERUR #### Laboratory [address] [place] [address] Dr. Nick PerezGlucose Ql (U)NegativeNormalNEGATIVEWadsworth-Rittman HospitalComment on above:Performed By: #### ERUR #### Laboratory [address] [place] [address] Dr. Nick PerezHemoglobin Ql (U)NegativeNormalNEGATIVEWadsworth-Rittman Hospital Comment on above:Performed By: #### ERUR #### Laboratory [address] [place] [address] Dr. Nick PerezKetones Ql (U)NegativeNormalNEGATIVEWadsworth-Rittman HospitalComment on above:Performed By: #### ERUR #### Laboratory [address] [place] [address] Dr. Nick PerezLEUKOCYTESNegativeNormalNEGATIVEWadsworth-Rittman HospitalComment on above:Performed By: #### ERUR #### Laboratory [address] [place] [address] Dr. Nick Mckay Ql (U)NegativeNormalNEGATIVEWadsworth-Rittman HospitalComment on above:Performed By: #### ERUR #### Laboratory [address] [place] [address] Dr. Nick PerezpH (U)6.0 [pH]Normal5-9The Comment on above: Performed By: #### ERUR #### Laboratory [address] [place] [address] Dr. Nick PerezSPEC GRAVITY<=1.690Kfnrhahl1.005-<=1.025[facility] Comment on above:Performed By: #### ERUR #### Laboratory [address] [place] [address] Dr. Nick Pierre PROTEINNegativeNormalNEGATIVE/ TRACEThe Comment on above:Performed By: #### ERUR #### Laboratory [address] [place] [address] Dr. Nick Zamarripa MICRO INDNOT INDICATEDNormalThUniversity Hospitals Cleveland Medical CenterComment on above:Performed By: #### ERUR #### Laboratory [address] [place] [address] Dr. Nick Hamptonbilinogen Qn (U)0.2 {Ta'U}/dLNormal0.2 - 1.0Wadsworth-Rittman HospitalComment on above:Performed By: #### ERUR #### Laboratory [address] [place] [address] Dr. Nick PerezLIPASEon 00-61-0447Wsxcwt [Catalytic activity/Vol]99.0 U/LNormal 73.0-393.0The Comment on above:Performed By: #### CMP, LAURYN, LIPA #### Laboratory [address] [place] [address] Dr. Nick PerezPREGNANCY URon 41-93-5711YEUWKMPLC, QUALNegativeNormalNEGATIVEThe Manteca HospitalComment on above:Performed By: #### ERUR #### Laboratory [address] [place] [address] Dr. Nick Evans 14(COMP METB)on 75-30-8336Zacuuoy [Mass/Vol]3.9 g/dLNormal 3.4-5.0The Comment on above:Performed By: #### CMP, LUARYN, LIPA #### Laboratory [address] [place] [address] Dr. Nick PerezAlbumin/Globulin [Mass ratio]1.3 {ratio}NormalThe Comment on above:Performed By: #### CMP, LAURYN, LIPA #### Laboratory [address] [place] [address] Dr. Nick Marley [Catalytic activity/Vol]76 U/ZIjnzpx82-722Zdu Comment on above:Performed By: #### CMP, LAURYN, LIPA #### Laboratory [address] [place] [address] Dr. Nick Bowie [Catalytic activity/Vol]24 U/MUxxpdb75-63Fgl Comment on above:Performed By: #### CMP, LAURYN, LIPA #### Laboratory [address] [place] [address] Dr. Nick Salazar gap [Moles/Vol]12.8 mmol/LNormalThe Comment on above:Performed By: #### CMP, LAURYN, LIPA #### Laboratory [address] [place] [address] Dr. Nick PerezAST [Catalytic activity/Vol]19 U/WMklkfh29-52Sap Comment on above:Performed By: #### CMP, LAURYN, LIPA #### Laboratory [address] [place] [address] Dr. Nick PerezBilirubin [Mass/Vol]1.6 mg/dLCritically high0.2-1.0The Comment on above:Performed By: #### CMP, LAURYN, LIPA #### Laboratory [address] [place] [address] Dr. Nick PerezCalcium [Mass/Vol]9.4 mg/dLNormal8.5-10.1The Comment on above:Performed By: #### CMP, LAURYN, LIPA #### Laboratory [address] [address] [address] Nick PerezChloride [Moles/Vol]103 mmol/LNmcnmu62-866Awi Comment on above:Performed By: #### CMP, LAURYN, LIPA #### Laboratory [address] [address] [address] Nick PerezCO2 [Moles/Vol]25.2 mmol/RWubfrn86.0-32.0The Comment on above:Performed By: #### CMP LAURYN, LIPA #### Laboratory [address] [place] [address] Dr. Nick PerezCreatinine [Mass/Vol]0.68 mg/dLNormal0.55-1.02The Comment on above:Performed By: #### CMP, LAURYN, LIPA #### Laboratory [address] [place] [address] Dr. Nick PickardGFR-AF KOSOVAN>60Normal>=60The Comment on above:Performed By: #### CMP LAURYN, LIPA #### Laboratory [address] [place] [address] Dr. Nick PickardGFR-NON AF KOSOVAN>60Normal>=60The Comment on above:Performed By: #### CMP, LAURYN, LIPA #### Laboratory [address] [place] [address] Dr. Nick PerezGlobulin (S) [Mass/Vol]2.9 g/dLNormalThe Comment on above:Performed By: #### CMP, LAURYN, LIPA #### Laboratory [address] [place] [address] Dr. Nick PerezGlucose [Mass/Vol]99 mg/oWVwvufj02-681Yxv Comment on above:Performed By: #### CMP, LAURYN, LIPA #### Laboratory [address] [address] [address] Nick PerezPotassium [Moles/Vol]3.0 mmol/LCritically low3.5-5.1The Comment on above:Performed By: #### CMP, LAURYN, LIPA #### Laboratory [address] [place] [address] Dr. Nick PerezProtein [Mass/Vol]6.8 g/dLNormal6.4-8.2The Comment on above:Performed By: #### CMP, LAURYN, LIPA #### Laboratory [address] [place] [address] Dr. Nick PerezSodium [Moles/Vol]138 mmol/AWmrwgf162-352Yhq Comment on above:Performed By: #### CMP, LAURYN, LIPA #### Laboratory [address] [place] [address] Dr. Nick PerezUrea nitrogen [Mass/Vol]3.0 mg/dLCritically low7.0-18.0The Comment on above:Performed By: #### CMP, LAURYN, LIPA #### Laboratory [address] [place] [address] Dr. Nick Dee nitrogen/Creatinine [Mass ratio]4.4 mg/mgNormalThe Comment on above:Performed By: #### CMP, LAURYN, LIPA #### Laboratory [address] [place] [address] Dr. Nick Luz 125on 18-76-7759Wqpfno Antigen (CA) 1257.8 U/mLNormal0.0-38.1 The Comment on above:Result Comment: [employer] Electrochemiluminescence Immunoassay (ECLIA) . Values obtained with different assay methods or kits cannot be used interchangeably. Results cannot be interpreted as absolute evidence of the presence or absence of malignant disease.Performed By: #### ERUR #### Laboratory [address] [place] [address] Dr. Nick PerezUS PELVIS AND TRANSVAGon 61-12-7385ML PELVIS AND TRANSVAG EXAMINATION: US PELVIS AND TRANSVAG HISTORY: Localized enlarged lymph nodes [...] Electronically authenticated by: AURA MENARD Date: 2022-06-18 13:12[facility] CONon [id number] ABD/PELV W CONEXAM: CT ABD/PELV W CON STUDY DATE: 05/29/2022 [...] Electronically authenticated by: FAROOQ LOPEZ Date: 2022-05-29 23:15NormalThe [facility] AUTO DIFFon [id number] #0.0 103/ulNormal0.0-0.1[facility]ittman HospitalComment on above:Performed By: #### CBC #### Laboratory [address] [place] [address] Dr. Nick Torressophils/100 WBC (Bld)0.6 %Normal0.2-2.0[facility] Comment on above:Performed By: #### CBC #### Laboratory [address] [address] [address] Nick Ledesma #0.0 103/ulNormal0.0-0.7The Comment on above: Performed By: #### CBC #### Laboratory [address] [address] [address] Nick Pickardosinophils/100 WBC (Bld)0.0 %Critically low0.9-7.0The Comment on above:Performed By: #### CBC #### Laboratory [address] [address] [address] Yilan ChangErythrocyte distribution width (RBC) [Ratio]14.7 %Qvdodm25.0-15.0 The Comment on above:Performed By: #### CBC #### Laboratory [address] [place] [address] Dr. Nick PerezHematocrit (Bld) [Volume fraction]41.7 %Obbxrw80.0-48.0The Comment on above:Performed By: #### CBC #### Laboratory [address] [place] [address] Dr. Nick PerezHemoglobin (Bld) [Mass/Vol]14.5 g/fGUtnrzm70.0-16.0The Comment on above:Performed By: #### CBC #### Laboratory [address] [place] [address] Dr. Nick Booth #0.01 10e3/ulNormal0.00-0.03The Comment on above:Performed By: #### CBC #### Laboratory [address] [place] [address] Dr. Nick Booth %0.3 %Normal0.0-0.5The Comment on above: Performed By: #### CBC #### Laboratory [address] [place] [address] Dr. Nick DiegoH #0.8 103/ulCritically low1.2-3.8The Comment on above:Performed By: #### CBC #### Laboratory [address] [place] [address] Dr. Nick Alvesmphocytes/100 WBC (Bld)23.0 %Dkjqgt71.5-60.0The Comment on above:Performed By: #### CBC #### Laboratory [address] [place] [address] Dr. Nick PetersonUAL DIFF REQNONormalThe Comment on above: Performed By: #### CBC #### Laboratory [address] [place] [address] Dr. Nick Roe (RBC) [Entitic mass]33.6 qtLekisg37.7-34.0The Comment on above:Performed By: #### CBC #### Laboratory [address] [place] [address] Dr. Nick Roe (RBC) [Mass/Vol]34.8 g/jRNjzpms61.9-35.2The Comment on above:Performed By: #### CBC #### Laboratory [address] [place] [address] Dr. Nick Roe (RBC) [Entitic vol]96.5 pMZnvzye12.0-99.0The Comment on above:Performed By: #### CBC #### Laboratory [address] [place] [address] Dr. Nick Taylor #0.3 103/ulNormal0.3-0.8The Comment on above:Performed By: #### CBC #### Laboratory [address] [place] [address] Dr. Nick Gusmanocytes/100 WBC (Bld)8.8 %Normal1.7-12.0The Comment on above:Performed By: #### CBC #### Laboratory [address] [place] [address] Dr. Nick Bunch #2.2 103/ulNormal1.4-6.5The Comment on above:Performed By: #### CBC #### Laboratory [address] [place] [address] Dr. Nick Nuñezutrophils/100 WBC (Bld)67.3 %Reynwo86.0-75.0The Comment on above:Performed By: #### CBC #### Laboratory [address] [place] [address] Dr. Nick Delgadolet mean volume (Bld) [Entitic vol]9.6 fLNormal9.5-13.5The Comment on above:Performed By: #### CBC #### Laboratory [address] [place] [address] Dr. Nick PerezPLT194 103/mqJxtgag361-888Rvt Comment on above: Performed By: #### CBC #### Laboratory [address] [place] [address] Dr. Nick PerezRBC4.32 106/ulNormal4.20-5.40The Comment on above:Performed By: #### CBC #### Laboratory [address] [place] [address] Dr. Nick PerezWBC3.3 103/ulCritically low4.0-11.0The [facility] Systemment on above:Performed By: #### CBC #### Laboratory [address] [place] [address] Dr. Nick Barrera-19 PCR (CVDTB)on 10-24-3007NQUW-CoV-2 (COVID-19) RNA LAURA+probe Ql (Unsp spec)DetectedCritically abnormalNOT DETECTEDThe [facility] on above:Result Comment: This test is not yet approved or cleared by the [place] FDA. When there are no FDA-approved or cleared tests available, and other criteria are met, FDA can make tests available under an emergency access mechanism called an Emergency Use Authorization (EUA). The EUA for this test is supported by the Recreation Facility Attendant of Health and Human Service's declaration that circumstances exist to justify the emergency use of in vitro diagnostics for the detection and/or diagnosis of the virusthat causes COVID-19. This EUA will remain in effect for the duration of the COVID-19 declaration ju stifying emergency of IVDs, unless it is terminated or revoked by the FDA (after which the test mayno longer be used).Performed By: #### ERUR #### Laboratory [address] [place] [address] Dr. Nick Valadez URINE PROFILEon 87-93-4009Wabqikwug Ql (U)NegativeNormal NEGATIVEThe [facility] on above:Performed By: #### ERUR #### Laboratory [address] [address] [address] Nick Barkerarity (U)CLEARNormalCLEARWadsworth-Rittman HospitalComment on above: Performed By: #### ERUR #### Laboratory [address] [address] [address] Nick Jeromelor (U)YELLOWNormalYELLOWWadsworth-Rittman HospitalComment on above: Performed By: #### ERUR #### Laboratory [address] [address] [address] Nick Schmid micrscopic examination will be performed if indicated. NormalThe Comment on above:Performed By: #### ERUR #### Laboratory [address] [place] [address] Dr. Nick PerezGlucose Ql (U)NegativeNormalNEGATIVEWadsworth-Rittman HospitalComment on above:Performed By: #### ERUR #### Laboratory [address] [place] [address] Dr. Nick PerezHemoglobin Ql (U)NegativeNormalNEGATIVEWadsworth-Rittman Hospital Comment on above:Performed By: #### ERUR #### Laboratory [address] [place] [address] Dr. Nick PerezKetones Ql (U)NegativeNormalNEGATIVEWadsworth-Rittman HospitalComment on above:Performed By: #### ERUR #### Laboratory [address] [place] [address] Dr. Nick PerezLEUKOCYTESNegativeNormalNEGATIVEWadsworth-Rittman HospitalComment on above:Performed By: #### ERUR #### Laboratory [address] [place] [address] Dr. Nick PerezNitrite Ql (U)NegativeNormalNEGATIVEWadsworth-Rittman HospitalComment on above:Performed By: #### ERUR #### Laboratory [address] [place] [address] Dr. Nick PerezpH (U)6.0 [pH]Normal5-9Wadsworth-Rittman HospitalComment on above: Performed By: #### ERUR #### Laboratory [address] [place] [address] Dr. Nick PerezSPEC GRAVITY1.433Kkigxj3.005-<=1.025The Comment on above:Performed By: #### ERUR #### Laboratory [address] [place] [address] Dr. Nick Pierre PROTEINNegativeNormalNEGATIVE/ TRACEThe Comment on above:Performed By: #### ERUR #### Laboratory [address] [place] [address] Dr. Nick Zamarripa MICRO INDNOT INDICATEDNormalThe Comment on above:Performed By: #### ERUR #### Laboratory [address] [place] [address] Dr. Nick Hamptonbilinogen Qn (U)1.0 {Ta'U}/dLNormal0.2 - 1.0The Comment on above:Performed By: #### ERUR #### Laboratory [address] [place] [address] Dr. Nick PerezLIPASEon 93-45-5639Uoepma [Catalytic activity/Vol]109.0 U/LNormal 73.0-393.0The Comment on above:Performed By: #### BMP, LIPA #### Laboratory [address] [place] [address] Dr. Nick PerezPROF CHEM 8 (BAS METB)on 26-82-7533Jijie gap [Moles/Vol]12.9 mmol/LNormalThe Comment on above:Performed By: #### BMP, LIPA #### Laboratory [address] [place] [address] Dr. Nick PerezCalcium [Mass/Vol]8.8 mg/dLNormal8.5-10.1The Comment on above:Performed By: #### BMP, LIPA #### Laboratory [address] [place] [address] Dr. Nick PerezChloride [Moles/Vol]103 mmol/KRispeu45-028Opy Comment on above:Performed By: #### BMP, LIPA #### Laboratory [address] [address] [address] Nick PerezCO2 [Moles/Vol]24.6 mmol/WMwxuxi63.0-32.0The Comment on above:Performed By: #### BMP, LIPA #### Laboratory [address] [address] [address] Nick PerezCreatinine [Mass/Vol]0.72 mg/dLNormal0.55-1.02The Comment on above:Performed By: #### BMP, LIPA #### Laboratory [address] [address] [address] Nick PickardGFR-AF KOSOVAN>60Normal>=60The Comment on above:Performed By: #### BMP, LIPA #### Laboratory [address] [address] [address] Nick PickardGFR-NON AF KOSOVAN>60Normal>=60The Comment on above:Performed By: #### BMP, LIPA #### Laboratory [address] [address] [address] Nick ePrezGlucose [Mass/Vol]70 mg/dLCritically ece26-694Lsv Comment on above:Performed By: #### BMP, LIPA #### Laboratory [address] [address] [address] Nick PerezPotassium [Moles/Vol]3.5 mmol/LNormal3.5-5.1The Comment on above:Performed By: #### BMP, LIPA #### Laboratory [address] [address] [address] Nick PerezSodium [Moles/Vol]137 mmol/UDxyigr186-607Okg Comment on above:Performed By: #### BMP, LIPA #### Laboratory [address] [address] [address] Nick PerezUrea nitrogen [Mass/Vol]5.0 mg/dLCritically low7.0-18.0Wadsworth-Rittman HospitalComment on above:Performed By: #### BMP, LIPA #### Laboratory [address] [address] [address] Nick PerezUrea nitrogen/Creatinine [Mass ratio]6.9 mg/mgNoCincinnati Shriners HospitalComment on above:Performed By: #### BMP, LIPA #### Laboratory [address] [id number] [address] Nick PerezXR ANKLE LT MIN 3 Von 32-27-8904ZS ANKLE LT MIN 3 VEXAM: XR ANKLE LT MIN 3 V DATE: 04/22/2022 11:15 AM EDT INDICATION: Pain COMPARISON: 03/31/2015 TECHNIQUE: 3 views left ankle FINDINGS: No acute fracture. Normal osseous alignment. Ankle mortise is symmetric. No osteochondral lesion of the talar dome. Mild soft tissue swelling of the ankle. IMPRESSION: 1. No acute osseous abnormality. 2. Mild soft tissue swelling of the ankle. Electronically authenticated by: IMAN QUEZADA Date: 2022-04-22 11:46[facility] HospitalXR Chest 2 Views*on 66-19-6024HF Chest 2 Views*FINDINGS: No change from August 24, 2021. No acute cardiac or pulmonary disease is identified. No worrisome mass lesions or infiltrates are seen. No pulmonary edema or pneumothorax is present. Cardiac silhouette size is normal. Skeletal structures are unremarkable. IMPRESSION: No acute cardiac or pulmonary disease. Report reported and signed by Dakota Horowitz on 12/27/2021 1434NormalNorthern [facility]aughlin [facility] Hospital SpecialistQ - CHLAMYDIA TRACHOMATIS/NEISSERIA GONORRHOEAE RNA TMAon 20-73-4666JKKPMCVSC TRACHOMATIS RNA, TMA, UROGENITALNot detectedNormalNOT DETECTEDNorthern [facility]aughlin [facility] Hospital SpecialistComment on above:Order Comment: [facility] performed at: [facility], [address] [place] [address], [address] [place] [address], [phone], Human Resources Consultant: Michael Grewal MD [facility] Collection Date/Time: [id number] [facility] Results Received Date/Time: [id number] [facility] Reported Date/Time: FASTING: NOPerformed By: #### [id number], %SBNOCULI, 3020X #### [facility] Default [address] [place], [place] [address]UVEPNLKSGC NOTENormalNortcopper springs east hospitaln Hospital For Special CareComment on above:Order Comment: [facility] performed at: [employer], [facility], [address] [place] [address], [address] [place] [address], [address] [place] [address], Human Resources Consultant: Michael Grewal MD [facility] Collection Date/Time: [facility] Results Received Date/Time: [facility] Reported Date/Time: FASTING: NOResult Comment: The analytical performance characteristics of this assay, when used to test SurePath(TM) specimens have been determined by [facility]. The modifications have not been cleared or approved by the FDA. This assay has been validated pursuant to the CLIA regulations and is used for clinical purposes. For additional information, please refer to https://education.[employer]/faq/GBC182 (This link is being provided for information/ educational purposes only.)Performed By: #### [id number], %SBNOCULI, 3020X #### [facility] Default [address] [place], [place] [address]MNUQCFDSE GONORRHOEAE RNA, TMA, UROGENITALNot detectedNormalNOT DETECTEDNoAdena Fayette Medical CenterComment on above:Order Comment: [facility] performed at: [employer], [facility], [address], [address] [place] [address], [address] [place] [address], Human Resources Consultant: Michael Grewal MD [facility] Collection Date/Time: [facility] Results Received Date/Time: [facility] Reported Date/Time: FASTING: NOPerformed By: #### [id number], %SBNOCULI, 3020X #### [facility] Default [address] [place], [place] [address]E - UR CULT REFLEXon 05-02-4831YBJKQFSXL URINE CULTURESEE NOTE NormalNoAdena Fayette Medical CenterComment on above:Order Comment: [facility] performed at: [employer], [facility], [address] , [address] [place] [address], [address] [place] [address], Human Resources Consultant: Michael Grewal MD [facility] Date/Time: [facility] Results Received Date/Time: [facility] Reported Date/Time: FASTING: NOResult Comment: NO CULTURE INDICATEDPerformed By: #### [id number], %SBNOCULI, 3020X #### [facility] Default [address] [place], [place] [address]L - URINALYSIS,COMPLETE,WITH REFLEX TO CULTUREon 11-02-2021 Appearance (U)CLEARNormalCLEARSt. John Of God Hospital SpecialistComment on above: Order Comment: [facility] performed at: [employer], [facility], [address] , [address] [place] [address], [address] [place] [address], Human Resources Consultant: Michael Grewal MD [facility] Date/Time: [facility] Results Received Date/Time: [facility] Reported Date/Time: FASTING: NOPerformed By: #### [id number], %SBNOCULI, 3020X #### [facility] Default [address] [place], [place] [address]RSFWSAACFSPQ SEENNormalNONE SEENSt. John Of God Hospital Specialist Comment on above:Order Comment: [facility] performed at: [employer], [facility], [address], [address] [place] [address], [address] [place] [address], Human Resources Consultant: Michael Grewal MD [facility] Date/Time: [facility] Results Received Date/Time: [facility] Reported Date/Time: FASTING: NOPerformed By: #### [id number], %SBNOCULI, 3020X #### [facility] Default [address] [place], [place] [address]Jlezypind Ql (U)NegativeNormalNEGATIVESt. John Of God Hospital SpecialistComment on above:Order Comment: [facility] performed at: [employer], [facility], [address] , [address] [place] [address], [address] [place] [address], Human Resources Consultant: Michael Grewal MD [facility] Date/Time: [facility] Results Received Date/Time: [facility] Reported Date/Time: FASTING: NOPerformed By: #### [id number], %SBNOCULI, 3020X #### [facility] Default [address] [place], [place] [address]Jstup (U)YELLOWNormalYELLOWNortCrystal Clinic Orthopedic [facility] [place] Comment on above:Order Comment: [facility] performed at: [employer], [facility], [address], [address] [place] [address], [address] [place] [address], Human Resources Consultant: Michael Grewal MD [facility] Date/Time: [facility] Results Received Date/Time: [facility] Reported Date/Time: FASTING: NOPerformed By: #### [id number], %SBNOCULI, 3020X #### [facility] Default [address] [place], [place] [address]Scwytwp Ql (U)NegativeNormalNEGATIVENoMercy Health St. [facility] SpecialistComment on above:Order Comment: [facility] performed at: [employer], [facility], [address] [place] [address], [address] [place] [address], [address] [place] [address], Human Resources Consultant: Michael Grewal MD [facility] Collection Date/Time: [facility] Results Received Date/Time: [facility] Reported Date/Time: FASTING: NOPerformed By: #### [id number], %SBNOCULI, 3020X #### [facility] Default [address] [place], [place] [address]YUHEXPN CASTNONE SEENNormalNONE SEENNoMercy Health St. [facility] SpecialistComment on above:Order Comment: [facility] performed at: [employer], [facility], [address] , [address] [place] [address], [address] [place] [address], Human Resources Consultant: Michael Grewal MD [facility] Collection Date/Time: [facility] Results Received Date/Time: [facility] Reported Date/Time: FASTING: NOPerformed By: #### [id number], %SBNOCULI, 3020X #### [facility] Default [address] [place], [place] [address]Tfyflab Ql (U)NegativeNormalNEGATIVESt. John Of God Hospital SpecialistComment on above:Order Comment: [facility] performed at: [employer], [facility], [address] [place] [address], [address] [place] [address], [address] [place] [address], Human Resources Consultant: Michael Grewal MD [facility] Collection Date/Time: [facility] Results Received Date/Time: [facility] Reported Date/Time: FASTING: NOPerformed By: #### [id number], %SBNOCULI, 3020X #### [facility] Default [address] [place], [place] [address]Ycaepmpth esterase Test strip Ql (U)NegativeNormalNEGATIVE [facility] Samaritan HospitalComment on above:Order Comment: [facility] performed at: [employer], [facility], [address] [place] [address], [address] [place] [address], [address] [place] [address], Human Resources Consultant: Michael Grewal MD [facility] Date/Time: [facility] Results Received Date/Time: [facility] Reported Date/Time: FASTING: NOPerformed By: #### [id number], %SBNOCULI, 3020X #### [facility] Default [address] [place], [place] [address]Quaqgtf Ql (U)NegativeNormalNEGMarietta Memorial HospitalComment on above:Order Comment: [facility] performed at: [employer], [facility], [address] [place] [address], [address] [place] [address], [address] [place] [address], Human Resources Consultant: Michael Grewal MD [facility] Collection Date/Time: [facility] Results Received Date/Time: [facility] Reported Date/Time: FASTING: NOPerformed By: #### [id number], %SBNOCULI, 3020X #### [facility] Default [address] [place], [place] [address]IAGQXX BLOODNegativeNormalNEGATIVENoMercy Health St. [facility] SpecialistComment on above:Order Comment: [facility] performed at: [employer], [facility], [address], [address] [place] [address], [address] [place] [address], Human Resources Consultant: Michael Grewal MD [facility] Collection Date/Time: [facility] Results Received Date/Time: [facility] Reported Date/Time: FASTING: NOPerformed By: #### [id number], %SBNOCULI, 3020X #### [facility] Default [address] [place], [place] [address]qF (U)6.5 [pH]Normal5.0-8.0NoMercy Health St. [facility] Specialist Comment on above:Order Comment: [facility] performed at: [employer], [facility], [address] [place] [address], [address] [place] [address], [address] [place] [address], Human Resources Consultant: Michael Grewal MD [facility] Date/Time: [facility] Results Received Date/Time: [facility] Reported Date/Time: FASTING: NOPerformed By: #### [id number], %SBNOCULI, 3020X #### [facility] Default [address] [place], [place] [address]Egfdkbl Ql (U)NegativeNormalNEGATIVESt. John Of God Hospital SpecialistComment on above:Order Comment: [facility] performed at: [employer], [facility], [address] , [address] [place] [address], [address] [place] [address], Human Resources Consultant: Michael Grewal MD [facility] Collection Date/Time: [facility] Results Received Date/Time: [facility] Reported Date/Time: FASTING: NOPerformed By: #### [id number], %SBNOCULI, 3020X #### [facility] Default [address] [place], [place] [address]SZJJSIA SEENNormal< OR = 2[facility] SpecialistComment on above:Order Comment: [facility] performed at: [facility], [facility], [address], [address] [place] [address], [address] [place] [address], Human Resources Consultant: Michael Grewal MD [facility] Collection Date/Time: [facility] Results Received Date/Time: [facility] Reported Date/Time: FASTING: NOPerformed By: #### [id number], %SBNOCULI, 3020X #### [facility] Default [address] [place], [place] [address]Baabnbxu gravity (U) [Rel density]1.121Gdrgye5.001-1.035NoMercy Health St. [facility] SpecialistComment on above:Order Comment: [facility] performed at: [employer], [facility], [address], [address] [place] [address], [address] [place] [address], Human Resources Consultant: Michael Grewal MD [facility] Collection Date/Time: [facility] Results Received Date/Time: [facility] Reported Date/Time: FASTING: NOPerformed By: #### [id number], %SBNOCULI, 3020X #### [facility] Default [address] [place], [place] [address]CAGBNBKH EPITHELIAL CELLSNONE SEENNormal< OR = 5Nortcopper springs east hospitaln [facility] SpecialistComment on above:Order Comment: [facility] performed at: [facility], [facility], [address], [address] [place] [address], [address] [place] [address], Human Resources Consultant: Michael Grewal MD [facility] Collection Date/Time: [facility] Results Received Date/Time: [facility] Reported Date/Time: FASTING: NOPerformed By: #### [id number], %SBNOCULI, 3020X #### [facility] Default [address] [place], [place] [address]PFFOPZF SEENNormal< OR = 5[facility] SpecialistComment on above:Order Comment: [facility] performed at: [employer], [facility], [address], [address] [facility], [place], [address], Human Resources Consultant: Michael Grewal MD [facility] Collection Date/Time: [facility] Results Received Date/Time: [facility] Reported Date/Time: FASTING: NOPerformed By: #### [id number], %SBNOCULI, 3020X #### [facility] Default [address] [place], [place] [address]VA Foot 2 Views Righton [id number] Foot 2 Views RightHISTORY: Fall x 5 days FINDINGS: No cortical or stress fracture or evidence of fracture healing. No focal soft tissue swelling. Minimal arthritis. IMPRESSION: 1. No fracture. Report reported and signed by Dakota Horowitz on 11/02/2021 1540NormalNorthern [facility]aughlin [facility] Hospital SpecialistCULTURE URINEon 54-34-9612UZDKNIK URINECulture Observations: GB STREP FAXED ER/NOTGLEN BOWDEN@1015/11/01/21/SHAYY Isolate 1 Streptococcus agalactiae 50,000 cfu/ml of ORGANISM 1 Streptococcus agalactiae ANTIBIOTIC M.I.C RX STATUS Benzylpenicillin <=0.06 S F Ampicillin <=0.25 S F Cefotaxime <=0.12 S F Ceftriaxone <=0.12 S F Levofloxacin 1 S F Inducible Clindamycin Resistance Neg NEG F Erythromycin 2 R F Clindamycin <=0.25 S F Linezolid <=2 S F Vancomycin 0.5 S F Tetracycline >=16 R FNormalThe Comment on above:Performed By: #### ERUR #### Laboratory [address] [place] [address] Dr. Nick Musa AUTO DIFFon 38-13-8023SGBZ #0.0 103/ulNormal0.0-0.1The Comment on above:Performed By: #### ERUR #### Laboratory [address] [place] [address] Dr. Nick PerezBasophils/100 WBC (Bld)0.2 %Normal0.2-2.0The Comment on above:Performed By: #### ERUR #### Laboratory [address] [place] [address] Dr. Nick Ledesma #0.1 103/ulNormal0.0-0.7The Comment on above: Performed By: #### ERUR #### Laboratory [address] [place] [address] Dr. Nick Pickardosinophils/100 WBC (Bld)0.5 %Critically low0.9-7.0The Comment on above:Performed By: #### ERUR #### Laboratory [address] [place] [address] Dr. Nick Pickardrythrocyte distribution width (RBC) [Ratio]13.5 %Lplyxs09.0-15.0 The Comment on above:Performed By: #### ERUR #### Laboratory [address] [place] [address] Dr. Nick PerezHematocrit (Bld) [Volume fraction]45.9 %Zaxqmr44.0-48.0Wadsworth-Rittman HospitalComment on above:Performed By: #### ERUR #### Laboratory [address] [place] [address] Dr. Nick PerezHemoglobin (Bld) [Mass/Vol]15.5 g/fNNvdnrv13.0-16.0The Comment on above:Performed By: #### ERUR #### Laboratory [address] [place] [address] Dr. Nick Booth #0.08 10e3/ulCritically high0.00-0.03The Comment on above:Performed By: #### ERUR #### Laboratory [address] [place] [address] Dr. Nick Booth %0.5 %Normal0.0-0.5The Comment on above: Performed By: #### ERUR #### Laboratory [address] [place] [address] Dr. Nick Starr #3.1 103/ulNormal1.2-3.8The Comment on above:Performed By: #### ERUR #### Laboratory [address] [place] [address] Dr. Nick Diegohocytes/100 WBC (Bld)17.3 %Critically low20.5-60.0The Manteca HospitalComment on above:Performed By: #### ERUR #### Laboratory [address] [place] [address] Dr. Nick James DIFF REQNONormalThe Comment on above: Performed By: #### ERUR #### Laboratory [address] [place] [address] Dr. Nick Galindo (RBC) [Entitic mass]33.3 mjZhneqc26.7-34.0The Comment on above:Performed By: #### ERUR #### Laboratory [address] [place] [address] Dr. Nick Rapp (RBC) [Mass/Vol]33.8 g/kEPjvwjd65.9-35.2The Comment on above:Performed By: #### ERUR #### Laboratory [address] [place] [address] Dr. Nick Hoover (RBC) [Entitic vol]98.7 fQGsvzjd02.0-99.0The Comment on above:Performed By: #### ERUR #### Laboratory [address] [place] [address] Dr. Nick Taylor #0.5 103/ulNormal0.3-0.8The Comment on above:Performed By: #### ERUR #### Laboratory [address] [place] [address] Dr. Yilan ChangMonocytes/100 WBC (Bld)3.0 %Normal1.7-12.0The Comment on above:Performed By: #### ERUR #### Laboratory [address] [place] [address] Dr. Nick NuñezUT #13.9 103/ulCritically high1.4-6.5ThUniversity Hospitals [facility] Center Comment on above:Performed By: #### ERUR #### Laboratory [address] [place] [address] Dr. Nick Nuñezutrophils/100 WBC (Bld)78.5 %Critically high43.0-75.0The Comment on above:Performed By: #### ERUR #### Laboratory [address] [place] [address] Dr. Nick PerezPlatelet mean volume (Bld) [Entitic vol]9.2 fLCritically low 9.5-13.5The Comment on above:Performed By: #### ERUR #### Laboratory [address] [place] [address] Dr. Nick PerezPLT346 103/duYzcgts694-706Few Comment on above: Performed By: #### ERUR #### Laboratory [address] [place] [address] Dr. Nick PerezRBC4.65 106/ulNormal4.20-5.40The Comment on above:Performed By: #### ERUR #### Laboratory [address] [place] [address] Dr. Nick PerzeWBC17.7 103/ulCritically high4.0-11.0The Comment on above:Performed By: #### ERUR #### Laboratory [address] [place] [address] Dr. Nick PerezCT ABD/PELVIS WO CONon [id number] ABD/PELVIS WO CONEXAMINATION: CT ABD/PELVIS WO CON, 10/29/2021 10:04 AM [...] Electronically authenticated by: DIANA GODOY Date: 2021-10-29 11:03NormCleveland Clinic Children's [facility] for Rehabilitation URINE PROFILEon 05-90-1196Peuynzyuz Ql (U)NegativeNormal NEGATIVEThe Comment on above:Performed By: #### NASRIN ALVARADO #### Laboratory [address] [address] Dr. Nick Barkerarity (U)CLEARNormalCLEARWadsworth-Rittman HospitalComment on above: Performed By: #### CHRISTIANO, ERUR #### Laboratory [address] [address] [address] Nick Otero (U)LT. YELLOWNormalYELLOWWadsworth-Rittman HospitalComment on above:Performed By: #### CHRISTIANO, ERUR #### Laboratory [address] [address] [address] Nick Schmid micrscopic examination will be performed if indicated. NormalWadsworth-Rittman HospitalComment on above:Performed By: #### CHRISTIANO, ERUR #### Laboratory [address] [place] [address] Dr. Nick PerezGlucose Ql (U)NegativeNormalNEGATIVEWadsworth-Rittman HospitalComment on above:Performed By: #### CHRISTIANO ERUR #### Laboratory [address] [place] [address] Dr. Nick PerezHemoglobin Ql (U)LARGEAbnormalNEGATIVENorwalk Memorial Hospital on above:Performed By: #### CHRISTIANO ERUR #### Laboratory [address] [place] [address] Dr. Nick PerezKetones Ql (U)NegativeNormalNEGATIVEWadsworth-Rittman HospitalComment on above:Performed By: #### CHRISTIANO, ERUR #### Laboratory [address] [address] [address] Nick PerezLEUKOCYTESLARGEAbnormalNEGATIVEWadsworth-Rittman HospitalComment on above:Performed By: #### CHRISTIANO ERUR #### Laboratory [address] [place] [address] Dr. Nick PerezNitrite Ql (U)NegativeNormalNEGATIVEWadsworth-Rittman HospitalComment on above:Performed By: #### CHRISTIANO ERUR #### Laboratory [address] [address] [address] Nick Thakkar (U)7.0 [pH]Normal5-9Wadsworth-Rittman HospitalComment on above: Performed By: #### CHRISTIANO ERUR #### Laboratory [address] [place] [address] Dr. Nick PerezSPEC GRAVITY<=1.513Mnutcflx9.005-<=1.025[facility] Comment on above:Performed By: #### CHRISTIANO, ERUR #### Laboratory [address] [place] [address] Dr. Nick Pierre PROTEINNegativeNormalNEGATIVE/ TRACEWadsworth-Rittman Hospital Comment on above:Performed By: #### CHRISTIANO ERUR #### Laboratory [address] [place] [address] Dr. Nick Zamarripa MICRO INDINDICATEDUniversity Health Lakewood Medical CenteralThUniversity Hospitals Cleveland Medical CenterComment on above: Performed By: #### CHRISTIANO ERUR #### Laboratory [address] [place] [address] Dr. Nick Hamptonbilinogen Qn (U)0.2 {Ta'U}/dLNormal0.2 - 1.0Wadsworth-Rittman HospitalComment on above:Performed By: #### CHRISTIANO ERUR #### Laboratory [address] [place] [address] Dr. Nick PerezPROF CHEM 8 (BAS METB)on [id number] gap [Moles/Vol]13.0 mmol/LNormalWadsworth-Rittman HospitalComment on above:Performed By: #### ERUR #### Laboratory [address] [place] [address] Dr. Nick PerezCalcium [Mass/Vol]9.0 mg/dLNormal8.4-10.2[facility] Comment on above:Performed By: #### ERUR #### Laboratory [address] [place] [address] Dr. Nick PerezChloride [Moles/Vol]98 mmol/EApjvtr91-591SeyWadsworth-Rittman Hospital Comment on above:Performed By: #### ERUR #### Laboratory [address] [address] [address] Nick PerezCO2 [Moles/Vol]26.7 mmol/XRwffvj57.0-30.0The Comment on above:Performed By: #### ERUR #### Laboratory [address] [address] [address] Nick PerezCreatinine [Mass/Vol]0.62 mg/dLNormal0.52-1.04The Comment on above:Performed By: #### ERUR #### Laboratory [address] [address] [address] Nick PickardGFR-AF KOSOVAN>60Normal>=60The Comment on above:Performed By: #### ERUR #### Laboratory [address] [address] [address] Nick PickardGFR-NON AF KOSOVAN>60Normal>=60The Comment on above:Performed By: #### ERUR #### Laboratory [address] [address] [address] Nick PerezGlucose [Mass/Vol]109 mg/dLCritically wgfm87-720Asj Comment on above:Performed By: #### ERUR #### Laboratory [address] [address] [address] Nick PerezPotassium [Moles/Vol]3.7 mmol/LNormal3.4-5.0The Comment on above:Performed By: #### ERUR #### Laboratory [address] [address] [address] Nick PerezSodium [Moles/Vol]134 mmol/LCritically apw210-730Opv Comment on above:Performed By: #### ERUR #### Laboratory [address] [address] [address] Nick PerezUrea nitrogen [Mass/Vol]6.0 mg/dLCritically low7.0-17.0The Comment on above:Performed By: #### ERUR #### Laboratory [address] [place] [address] Dr. Nick PerezUrea nitrogen/Creatinine [Mass ratio]9.7 mg/mgNoCincinnati Shriners HospitalComment on above:Performed By: #### ERUR #### Laboratory [address] [place] [address] Dr. Nick Downs MICROSCOPIC ONLYon 65-98-8816KACCWEZMWXTVJIltvcnssEMQE SEEN [facility]-Rittman HospitalComuniversity of [facility] on above:Performed By: #### ERUR #### Laboratory [address] [place] [address] Dr. Nick Matthews identified Cx Nom (U)INDICATEDGood Samaritan HospitalComment on above:Performed By: #### ERUR #### Laboratory [address] [place] [address] Dr. Nick Hollingsworth SEENNormalNONE SEENWadsworth-Rittman HospitalComuniversity of [facility] health on above:Performed By: #### ERUR #### Laboratory [address] [place] [address] Dr. Nick Conradystals LM Nom (Urine sed)NONE SEENNormalNONE SEENWadsworth-Rittman HospitalComuniversity of [facility] on above:Performed By: #### ERUR #### Laboratory [address] [place] [address] Dr. Romero ChangEpithelial cells LM Ql (Urine sed)FEWAbnormalNONE SEEN /RAREThe [facility] on above:Performed By: #### ERUR #### Laboratory [address] [place] [address] Dr. Nick FordeCOUSNONE SEENNormalNONE SEENWadsworth-Rittman HospitalComuniversity of [facility] on above:Performed By: #### ERUR #### Laboratory [address] [place] [address] Dr. Nick PerezOtjksKSK99-99Qxfcesfs9-3Jrg [facility] on above: Performed By: #### ERUR #### Laboratory [address] [place] [address] Dr. Nick PerezZldwpSXP11-25QdrajvamHRRK SEENThe Comment on above: Performed By: #### ERUR #### Laboratory [address] [address] [address] Nick Perez Vital Signs Date TimeVital SignValuePerforming VtdbvocjbNypliriq49-83-4715 16:21-0400Body mass index (BMI) [Ratio]28.49 kg/y8Kdgbykqb Swinehart ELECTRONIC MASKING SYSTEM OPERATOR Work Phone: [facility] HospitalIicallbvtd16-33-6519 16:21-0400Body temperature 97.3 [degF]Janina Swinehart ELECTRONIC MASKING SYSTEM OPERATOR Work Phone: [phone] HospitalFmhzxqgmmx14-93-3133 16:21-0400Body .3 kg Janina Swinehart ELECTRONIC MASKING SYSTEM OPERATOR Work Phone: [facility] HospitalIijsavzsxk14-76-9785 16:21-0400Diastolic blood ikeclggb07 mm[Hg]Janina Swinehart ELECTRONIC MASKING SYSTEM OPERATOR Work Phone: [phone] HospitalJjsadkcfev97-98-3118 16:21-0400Heart rate80 /min Janina Swinehart ELECTRONIC MASKING SYSTEM OPERATOR Work Phone: [facility] HospitalUhzwbntkry43-32-5299 16:21-2539YvR8% (BldA) [Mass fraction]97 %Janina Swinehart ELECTRONIC MASKING SYSTEM OPERATOR Work Phone: [facility] HospitalMihaqgpidh73-96-5856 16:21-0400Systolic blood ovxpjhlr785 mm[Hg]Janina Swinehart ELECTRONIC MASKING SYSTEM OPERATOR Work Phone: [facility] HospitalXodzggeukl00-94-4244 15:26-0400Body aeewob339.6 cmBreann Majors ELECTRONIC MASKING SYSTEM OPERATOR Work Phone: [phone] HospitalDxtpvmujvy19-99-4903 15:26-0400Body mass index (BMI) [Ratio]28.43 kg/z4Iknicp Majors ELECTRONIC MASKING SYSTEM OPERATOR Work Phone: [facility] HospitalNvbazwpskl38-94-0573 15:26-0400Body temperature 98.71 [degF]Anaya Majors ELECTRONIC MASKING SYSTEM OPERATOR Work Phone: [facility] HospitalBcthpukews55-80-4129 15:26-0400Body qurjsq48.12 kgTawnyadario Morton ELECTRONIC MASKING SYSTEM OPERATOR Work Phone: 1([phone])[facility] [place], [place] [address]Hvqqynayvb57-26-4132 15:26-0400Diastolic blood gwyndkhu44 mm[Hg]Anayadario Fields ELECTRONIC MASKING SYSTEM OPERATOR Work Phone: [phone])[address] [place], [place] 5043106-20-2025 15:26-0400Heart rate70 /min Anaya Fields ELECTRONIC MASKING SYSTEM OPERATOR Work Phone: [phone] [place], [place] 5043106-20-2025 15:26-8453EcY9% (BldA) [Mass fraction]96 %Anaya Morton ELECTRONIC MASKING SYSTEM OPERATOR Work Phone: [phone])[address] [place], [place] 5043106-20-2025 15:26-0400Systolic blood bniarvqi558 mm[Hg]Anaya Fieldgustavo ELECTRONIC MASKING SYSTEM OPERATOR Work Phone: [phone] [place], [place] 5043105-22-2025 15:35-0400Body pftcba646.6 cmJaniya Raygoza MD Work Phone: [phone])[address] [place], [place] 5043105-22-2025 15:35-0400Body mass index (BMI) [Ratio]28.84 kg/m2Janiya Raygoza MD Work Phone: [phone])[address] [place], [place] 5043105-22-2025 15:35-0400Body apjxhq91.2 kg Janiya Raygoza MD Work Phone: [phone] [place], [place] 5043105-22-2025 15:35-0400Diastolic blood ogesyueh78 mm[Hg]Janiya Raygoza MD Work Phone: 1(980)[facility] [place], [place] [address]Posymtpetu04-18-4133 15:35-0400Heart rate80 /min Janiya Raygoza MD Work Phone: [phone] [place], [place] [address]Voxiiwzxmo70-29-7258 15:35-0400Respiratory rate18 /minJaniya Raygoza MD Work Phone: [phone])[facility] [place], [place] [address]Mpmftxjnlj50-36-5607 15:35-0400Systolic blood xoitvjbl975 mm[Hg]Janiya Raygoza MD Work Phone: [phone] [address]-20-2025 15:55-0400Body uwvyxv825.6 Angelo Kelley MD Work Phone: [address] [address]-20-2025 15:55-0400Body mass index (BMI) [Ratio]30.9 kg/u5RbtcvlmKiet Kelley MD Work Phone: bon [facility]05-20-2025 15:55-0400Body .5 [degF]Kiet Kelley MD Work Phone: bon [facility]05-20-2025 15:55-0400Body hypzoi98.65 kgKiet Kelley MD Work Phone: bon [facility]05-20-2025 15:55-0400Diastolic blood hjqjecab17 mm[Hg]Kiet Kelley MD Work Phone: bon [facility]05-20-2025 15:55-0400Heart rate73 /minKiet Kelley MD Work Phone: Qad [facility]05-20-2025 15:55-0400 Respiratory rate18 /minKiet Kelley MD Work Phone: bon [facility]05-20-2025 15:55-9608ThY9% (BldA) [Mass fraction]98 %Kiet Kelley MD Work Phone: bon [facility]05-20-2025 15:55-0400Systolic blood ergfjvfv888 mm[Hg]Kiet Kelley MD Work Phone: bon [facility]01-09-2025 14:54-0500Body pqrewx511.6 Danilo MCLEOD Work Phone: [facility] HospitalJqujqqbpmv12-48-3687 14:54-0500Body mass index (BMI) [Ratio]29.49 kg/m2Lauryn MCLEOD Work Phone: [facility] HospitalZziytsfuhk65-54-6733 14:54-0500Body jttzie13.93 kgLauryn MCLEOD Work Phone: noWashington County [facility] HospitalGsbzqshlqe53-76-2748 14:54-0500Diastolic blood zutrweiw34 mm[Hg]Lauryn MCLEOD Work Phone: [facility] HospitalIpenebywof76-31-4479 14:54-0500Systolic blood ejscbmuu205 mm[Hg]Lauryn Booker PA Work Phone: [facility] HospitalAuhmoaepqz01-33-3090 08:02-0500Body ackjnz213.4 cmChristwaleska SimpsonSchultz ELECTRONIC MASKING SYSTEM OPERATOR Work Phone: [facility] HospitalEfjnmzinpf41-14-9194 08:02-0500Body mass index (BMI) [Ratio]26.06 kg/a1Romeuek Schultz ELECTRONIC MASKING SYSTEM OPERATOR Work Phone: [facility] HospitalHodueydqjy94-34-8019 08:02-0500Body eiqjzi55.12 kgChristy Schultz ELECTRONIC MASKING SYSTEM OPERATOR Work Phone: [facility] HospitalTdctkaoqou18-58-9426 08:02-0500Diastolic blood sfhufdhn98 mm[Hg]Sarah Lapatrick ELECTRONIC MASKING SYSTEM OPERATOR Work Phone: [facility] HospitalCrapvnixqp97-95-8392 08:02-0500Heart rate68 /min Sarah Lapatrick ELECTRONIC MASKING SYSTEM OPERATOR Work Phone: [facility] HospitalUxvqryvppx98-48-6651 08:02-0500Respiratory rate18 /minChmamadou Simpsontrick ELECTRONIC MASKING SYSTEM OPERATOR Work Phone: [facility] HospitalUpjwwbaswq13-32-7680 08:02-0448HwV7% (BldA) [Mass fraction]98 %Sarah Kingzpatrick ELECTRONIC MASKING SYSTEM OPERATOR Work Phone: [facility] HospitalFtdxfnnjgq06-94-7103 08:02-0500Systolic blood mm[Hg]Sarah Kingzpatrick ELECTRONIC MASKING SYSTEM OPERATOR Work Phone: [facility] HospitalVmdxhawlmn52-70-6065 14:22-5700OjB9% (BldA) [Mass fraction]96 %Kiet Kelley MD Work Phone: bon [facility]12-09-2024 13:22-0500Diastolic blood kkuerzmj33 mm[Hg]Kiet Kelley MD Work Phone: bon [facility]12-09-2024 13:22-0500Systolic blood owezxbwa950 mm[Hg]Kiet Kelley MD Work Phone: [facility] Jternq42-39-9962 13:09-0500Body swkfamuugze63.49 [degF]Kiet Kelley MD Work Phone: [facility]12-09-2024 13:02-0500Body eceewd189.6 Angelo Kelley MD Work Phone: b[facility]12-09-2024 13:02-0500Body mass index (BMI) [Ratio]27.46 kg/k9KeqfcyxKiet Kelley MD Work Phone: bon [facility]12-09-2024 13:02-0500Body cnvicd58.58 kgKiet Kelley MD Work Phone: b[facility]12-09-2024 13:02-0500Heart gcsy179 /minKiet Kelley MD Work Phone: bon [facility] Centertsumobi [facility] Hillgw52-07-5611 13:02-0500 Respiratory rate18 /minKiet Kelley MD Work Phone: bon [facility]09-13-2024 09:57-0400Body .6 Angelo Kelley MD Work Phone: bon [facility]09-13-2024 09:57-0400Body mass index (BMI) [Ratio]25.75 kg/x3BnjfjvsKiet Kelley MD Work Phone: bon [facility]ITALClickberry [facility] CENTERCriticalMetricsABFRMU18-60-9437 09:57-0400Body uqukcxdiqay35.01 [degF]Kiet Kelley MD Work Phone: bon [facility]ITALClick[facility] CENTERCriticalMetricsEALEJZ57-94-6356 09:57-0400Body .04 kgKiet Kelley MD Work Phone: b[facility] SPRINGSClickberry [facility] CENTERCriticalMetricsHPZGUT99-14-8529 09:57-0400Diastolic blood mm[Hg]Kiet Kelley MD Work Phone: bon [facility]09-13-2024 09:57-0400Heart rate93 /Mayco Kelley MD Work Phone: bon [facility]09-13-2024 09:57-0400 Respiratory rate19 /minKiet Kelley MD Work Phone: bon [facility]09-13-2024 09:57-5402CyG8% (BldA) [Mass fraction]99 %Kiet Kelley MD Work Phone: bon [facility]09-13-2024 09:57-0400Systolic blood tqsprler665 mm[Hg]Kiet Kelley MD Work Phone: bon [facility]06-28-2024 20:22-0400Body memrsiicljs31.7 [degF]Hernandez Dave [address]06-28-2024 20:22-0400 Diastolic blood soupcrcm45 mm[Hg]Hernandez Dave [address]06-28-2024 20:22-0400Heart wuaw521 /minNoah Dave [address] [place], [place] 8044606-28-2024 20:22-0400 Respiratory rate18 /minNoah Dave [address] [place], [place] 8044606-28-2024 20:22-6796AfT0% (BldA) [Mass fraction]97 %Hernandez Dave [address] [place], [place] 80[address]606-28-2024 20:22-0400 Systolic blood obwlaskz699 mm[Hg]Hernandez Dave [address]04-29-2024 13:18-0400Body gfxjntneyal82.4 [degF]Erwin Dalal MD Work Phone: BON [facility]04-29-2024 13:18-0400Diastolic blood iodxhsgv05 mm[Hg]Erwin Dalal MD Work Phone: BON [facility]04-29-2024 13:18-0400Heart rate68 /David Dalal MD Work Phone: [facility]04-29-2024 13:18-0400 Respiratory rate20 /David Dalal MD Work Phone: [facility]04-29-2024 13:18-2920XvJ4% (BldA) [Mass fraction]99 %Erwin Dalal MD Work Phone: [facility]04-29-2024 13:18-0400Systolic blood ddeecwwn635 mm[Hg]Erwin Dalal MD Work Phone: [facility]04-16-2024 13:31-0400Body lpmluobmtwb25.06 [degF]Bari Alicea [facility]04-16-2024 13:31-0400 Diastolic blood xmwxycjz56 mm[Hg]Bari Alicea [facility]04-16-2024 13:31-0400Heart wcpe981 /Micky Nixon [facility]04-16-2024 13:31-0400 Respiratory rate16 /minBari Alicea [facility]04-16-2024 13:31-3355PvY4% (BldA) [Mass fraction]98 %Bari Alicea [facility]04-16-2024 13:31-0400 Systolic blood hlniiybm088 mm[Hg]Brai Alicea [facility]03-27-2024 10:34-0400Heart rate68 /Chris Sky [address] [place], [place] 8044603-27-2024 10:34-0400 Respiratory rate18 /Laronpoly Sky [address] [place], [place] 8044603-27-2024 10:25-0400Heart rate80 /Laronpoly Sky [address] [place], [place] 8044603-27-2024 10:25-0400 Respiratory rate18 /minAbdoulpoly Jose Daniel [address] [place], [place] 8044603-27-2024 10:14-0400Body udfkvggtlza30.06 [degF]Colby Sky [address]03-27-2024 10:14-0400 Diastolic blood ggfsaswm67 mm[Hg]Colby Sky [address]03-27-2024 10:14-0400Heart rate63 /Laronpoly Joes Daniel [address] [place], [place] 8044603-27-2024 10:14-0400 Respiratory rate18 /Laronpoly Jose Daniel [address] [place], [place] 8044603-27-2024 10:14-1535QvJ6% (BldA) [Mass fraction]98 %Colby Sky [address] [place], [place] 8044603-27-2024 10:14-0400 Systolic blood vnyjytrl350 mm[Hg][place] Jose Daniel [address] [place], [place] 8044612-12-2023 14:14-0500 Diastolic blood ybcaaxrh50 mm[Hg]Bari Alicea [address] [place], [place] 8044612-12-2023 14:14-0500Heart rate56 /Micky Alicea [address] [place], [place] 8044612-12-2023 14:14-0500 Respiratory rate16 /minBari Alicea [address]12-12-2023 14:14-6075DeI9% (BldA) [Mass fraction]98 %Bari Alicea [address]12-12-2023 14:14-0500 Systolic blood znefcrva399 mm[Hg]Bari Alicea [address]12-12-2023 13:15-0500 Diastolic blood amsbtkla71 mm[Hg]Bari Alicea [address]12-12-2023 13:15-0500Heart rate63 /minBari Alicea [address]12-12-2023 13:15-0500Mean blood uibxynjc99 mm[Hg]Bari Alicea [address]12-12-2023 13:15-0500 Respiratory rate16 /minBari Alicea [address]12-12-2023 13:15-0342WsS4% (BldA) [Mass fraction]98 %Bari Alicea [address]12-12-2023 13:15-0500 Systolic blood vxtibinx650 mm[Hg]Bari Alicea [address]12-12-2023 12:55-0500Body trttjrzodae25.7 [degF]Bari Alicea [address] [place], [place] 8044612-12-2023 12:55-0500 Diastolic blood mm[Hg]Bari Alicea [address]12-12-2023 12:55-0500Heart rate72 /minBari Wange [address]12-12-2023 12:55-0500 Respiratory rate18 /minBari Alicea [address]12-12-2023 12:55-9879PbL9% (BldA) [Mass fraction]99 %Bari Alicea [facility]12-12-2023 12:55-0500 Systolic blood rqvjuniv189 mm[Hg]Bari Alicea [facility]09-17-2023 11:21-5702HkM6% (BldA) [Mass fraction]98 %Alvaro Alonso MD Work Phone: 1(932)9645000[facility] HackerEarthCBWKKV42-65-7404 10:45-0400Body kbllow521.6 cmAlvaro Alonso MD Work Phone: 1(220)9645000[facility] HackerEarthENCYZP32-20-6634 10:45-0400Body mass index (BMI) [Ratio]24.03 kg/w4EznumAlvaro Alonso MD Work Phone: 1(648)9645000[facility] HackerEarthSWSXAL14-68-4379 10:45-0400Body maytyxpelos10.8 [degF]Alvaro Alonso MD Work Phone: 1(730)9645000[facility] HackerEarthYTHBMY82-43-4643 10:45-0400Body mfbyil86.5 kgAlvaro Alonso MD Work Phone: 1(927)9645000[facility] HackerEarthSZQWLL03-83-5025 10:45-0400Diastolic blood rimbqkuv19 mm[Hg]Alvaro Alonso MD Work Phone: 1(273)9645000[facility] HackerEarthPLTNJO37-23-0781 10:45-0400Heart rate74 /Catarino Alonso MD Work Phone: 1(470)9645000[facility] HackerEarthIDOQHZ10-04-6311 10:45-0400 Respiratory rate20 /Catarino Alonso MD Work Phone: 1(721)9645000[facility] HackerEarthAOKIJF39-51-4464 10:45-0400Systolic blood jmfygukq011 mm[Hg]Alvaro Alonso MD Work Phone: 1(858)9645000[facility] HackerEarthLEPQYU14-56-9684 13:32-0400Body qsdpar633.56 cmJaniya Raygoza Work Phone: 1(583) [phone]-[facility]vD[facility] 120 Work Phone: 1(205) 290-292508-21-2023 13:32-0400Body mass index (BMI) [Ratio] 25.09 kg/m2Janiya Raygoza Work Phone: 1(137) [phone]-RgryDallas County Hospital 120 Work Phone: 1(814) 653-713008-21-2023 13:32-0400Body surface area Derived from formula1.71 m2Janiya Raygoza Work Phone: 1(515) [phone]-[place]qhC[place] [address] Work Phone: 1(147) 366-690608-21-2023 13:32-0400Body xzcawa69.3 kgJaniya Raygoza Work Phone: 1(250) [phone]-FbzeC[place] [address] Work Phone: 1(648) 356-688702-16-2023 06:00-0500Body .5 [degF]MD Janiya Raygoza Work Phone: [phone]02-16-2023 06:00-0500 Diastolic blood mm[Hg]MD Janiya Raygoza Work Phone: [phone]02-16-2023 06:00-0500 Heart rate60 /min Janiya Raygoza Work Phone: [phone]02-16-2023 06:00-0500 Respiratory rate18 /min Janiya Raygoza Work Phone: [phone]02-16-2023 06:00-0500 SaO2% (BldA) [Mass fraction]96 %MD Janiya Raygoza Work Phone: [facility]02-16-2023 06:00-0500 Systolic blood ojtcaygt861 mm[Hg]MD Janiya Raygoza Work Phone: [phone]02-14-2023 14:24-0500 Body idllds384.56 cm Janiya Raygoza Work Phone: [phone]02-14-2023 04:46-0500 Body adhvlp13.86 kg Janiya Raygoza Work Phone: [facility]02-14-2023 03:27-0500 Body zhcexqfdocx64.6 [degF]Bari Alicea [address] [place], [place] 8044602-14-2023 03:27-0500 Diastolic blood mtyxdgta42 mm[Hg]Bari Alicea [address] [place], [place] 6473302-14-2023 03:27-0500Heart rate67 /minJohn Nixon [address] [place], [place] 8044602-14-2023 03:27-0500Mean blood mm[Hg]Bari Alicea [address] [place], [place] 8044602-14-2023 03:27-0500 Respiratory rate18 /minJohn Nixon [address] [place], [place] 8044602-14-2023 03:27-9984UfL9% (BldA) [Mass fraction]94 %Bari Alicea [facility]02-14-2023 03:27-0500 Systolic blood mm[Hg]Bari Alicea [facility]02-14-2023 02:15-0500Heart rate70 /minJohn Nixon [facility]02-14-2023 02:15-0500 Respiratory rate19 /minJohn Nixon [address] [place], [place] 8044602-14-2023 02:15-5009CqM6% (BldA) [Mass fraction]95 %Bari Alicea [address] [place], [place] 8044602-14-2023 01:10-0500Heart rate75 /minJohn Nixon [facility]02-14-2023 01:10-0500 Respiratory rate27 /minJohn Nixon [address] [place], [place] 8044602-14-2023 01:10-3072SlV7% (BldA) [Mass fraction]96 %Bari Alicea [address]02-14-2023 00:16-0500 Hourly RoundingaBri Alicea [address]02-13-2023 23:15-0500 Diastolic blood rqweulgy00 mm[Hg]Bari Alicea [address]02-13-2023 23:15-0500 Hourly RoundingBari Alicea [address] [place], [place] 8044602-13-2023 23:15-0500Mean blood mm[Hg]Bari Alicea [address]02-13-2023 23:15-0500 Systolic blood mm[Hg]Bari Alicea [address]02-13-2023 22:15-0500 Hourly RoundingBari Alicea [address] [place], [place] 8044602-13-2023 21:44-0500 Diastolic blood aymizfml57 mm[Hg]Bari Alicea [address] [place], [place] 8044602-13-2023 21:44-0500Mean blood ehydqhjw43 mm[Hg]Bari Alicea [address] [place], [place] 8044602-13-2023 21:44-0500 Systolic blood expshttr509 mm[Hg]Bari Alicea [address] [place], [place] 8044602-13-2023 15:48-0500Body uldzsxofjzz56.6 [degF]Bari Alicea [address] [place], [place] [id number] 15:48-0500Heart bukt670 /minJocassie Alicea [address] [place], [place] [id number] 15:48-0500 Respiratory rate19 /minBari Alicea [facility]-09-[facility] 14:50-0500Body whoomy724.56 cmJaniya Raygoza Work Phone: 1(341) [phone]-[facility]wjlD[facility] Work Phone: 1(588) 637-539802-09-2023 14:50-0500Body mass index (BMI) [Ratio] 25.06 kg/m2Janiya Raygoza Work Phone: 1(288) [phone]-YjrhD[facility] 120 Work Phone: 1(350) 919-852402-09-2023 14:50-0500Body surface area Derived from formula1.71 m2Janiya Raygoza Work Phone: 1(295) [phone]-OoxbD[facility] 120 Work Phone: 1(387) 124-666802-09-2023 14:50-0500Body ohimog99.23 kgJaniya Raygoza Work Phone: 1(694) [phone]-FvxkD[facility] 120 Work Phone: 1(572) 199-524602-09-2023 14:50-0500Diastolic blood onfgstpp57 mm[Hg] Janiya Raygoza Work Phone: 1(602) [phone]-DdtgD[facility] 120 Work Phone: 1(994) 213-535302-09-2023 14:50-0500Heart rate92 /Zaheer Raygoza Work Phone: 1(979) [phone]-JgibD[facility] 120 Work Phone: 1(917) 483-651402-09-2023 14:50-0500Respiratory rate95 /Zaheer Raygoza Work Phone: 1(502) [phone]-IbbfD[facility] 120 Work Phone: 1(601) 706-532502-09-2023 14:50-0500Systolic blood khprdmet071 mm[Hg] Janiya Raygoza Work Phone: 1(109) [phone]-LsdxDallas County [facility] Work Phone: [phone] 16:14-4472OtF2% (BldA) [Mass fraction]97 % Dakota Robb MD Work Phone: [facility]Click[facility] CENTERCriticalMetricsTXLKOK15-08-9271 15:55-0500Body uodhrgjwnfj64.9 [degF]Dakota Robb MD Work Phone: [facility]Click[facility] HOTJEU26-65-6720 15:55-0500Diastolic blood kuzsiapi56 mm[Hg]Dakota Robb MD Work Phone: [facility]Click[facility] SYSTEMLPFRSN86-68-7171 15:55-0500Heart rate80 /minDakota Robb MD Work Phone: [facility]Click[facility] CENTERCriticalMetricsODSLKV41-92-9185 15:55-0500 Respiratory rate20 /minDakota Robb MD Work Phone: [facility]Click[facility] CENTERCriticalMetricsBPHTDK13-04-1235 15:55-0500Systolic blood icmhvyoj218 mm[Hg]Dakota Robb MD Work Phone: [facility]Click[facility] MEYTZB24-23-8865 15:54-0500Body .6 cmJodaphne Robb MD Work Phone: [facility]Click[facility] HVPLSZ44-57-5475 15:54-0500Body mass index (BMI) [Ratio]25.35 kg/f8ZsmhyjDakota Robb MD Work Phone: [facility]Click[facility] PHTORC45-17-0493 15:54-0500Body kgDakota Robb MD Work Phone: [facility]PITALSmashrun12-07-2022 13:15-0500Diastolic blood lszpbial57 mm[Hg]Et3 HjwjlnanFiopwCyqxaz31-63-5799 13:15-0500Heart rate76 /minEt3 YzxyiblbGmujbNvqhcn51-93-9829 13:15-0500Respiratory rate16 /minEt3 YeiseiooQkytqIocjjk16-21-7947 13:15-8385FnI9% (BldA) [Mass fraction]98 %Et3 VingwvqnRqpnfRvygdb13-98-4372 13:15-0500Systolic blood wpzcrltu101 mm[Hg]Et3 ResourceMetroHealth Encounters Encounter DateEncounter TypeCare ProviderFacilityStart: 09-08-2025 End: 77-12-0909Vuivsfxiv encounterJaniya Raygoza MD Work Phone: [facility] MedicineStart: 09-07-2025 End: 98-74-3872Tkzygdpke Result EncounterGeneric External Data ProviderNOMS External Department UnsolicitedStart: 09-07-2025 End: 57-30-5456Neqiwluru Result EncounterGeneric External Data ProviderNOMS External Department UnsolicitedStart: 08-20-2025 End: 13-61-0870Bvkmfz outpatient visit 15 minutesAshconnie Felicityazaelt ELECTRONIC MASKING SYSTEM OPERATOR Work Phone: [facility] MedicineComment on above: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)Start: 08-20-2025 End: 29-61-3950zenuxwxlwkKXOQBRNI SWINEHARTNot AvailableStart: 08-20-2025 End: 77-56-1848Ljtujh flowsheetJanina Blevinshart ELECTRONIC MASKING SYSTEM OPERATOR Work Phone: [facility]der[facility] MedicineStart: 08-20-2025 End: 37-49-6587Fctvfu flowsheetJanina Blevinshart ELECTRONIC MASKING SYSTEM OPERATOR Work Phone: [facility] Balder[facility] MedicineStart: 08-10-2025 End: 87-37-7081vxxolrwserHrlzeae Adeola LABORATORY EQUIPMENT CLEANER Work Phone: NODN POPULATION HEALTHStart: 05-18-2025 End: 35-69-8939Qsdxnuxhz encounterJaniya Raygoza MD Work Phone: noms FNR FMStart: 05-14-2025 End: 06-65-3652Zedqeh outpatient visit 25 minutesAbra[facility] ELECTRONIC MASKING SYSTEM OPERATOR Work Phone: noms FNR FMComment on above:Palpitations (Primary Dx); Neck pain; Acute bilateral back pain, unspecified back locationStart: 05-14-2025 End: 00-96-3803tiakkisvqsEJZFZU MAJORSNot AvailableStart: 05-14-2025 End: 49-97-6859Dujvix flowsheetTuba City Regional [facility] Emir ELECTRONIC MASKING SYSTEM OPERATOR Work Phone: NOWI FNR FMStart: 05-14-2025 End: 04-82-4657Ikdhgd [facility] ELECTRONIC MASKING SYSTEM OPERATOR Work Phone: noms FNR FMStart: 05-11-2025 End: 45-69-4631oydzzvguuhWhifwvs Adeola LABORATORY EQUIPMENT CLEANER Work Phone: noms POPULATION HEALTHStart: 05-08-2025 End: 72-93-2100Itifdrgen department patient visitFLORENCE COMMUNITY HEALTHCAREWaleska [facility] Start: 05-05-2025 End: 01-52-9330Mfqsedodc encounterJaniya Raygoza MD Work Phone: noms FNR FMStart: 04-26-2025 End: 95-11-9976mkhczqhveaUKCTUC Medical Center HospitalStart: 04-26-2025 End: 81-69-4754Psfqjvgvuw hospital [facility] by [facility] In[facility] Non-Invasive CardiologyComment on above:PalpitationsStart: 04-21-2025 End: 06-80-4709jjcysxftxiZZEPUC Medical Center HospitalStart: 04-21-2025 End: 92-05-9415Wzryvrnupz hospital visit by physicianCre[facility] Ekg ScheduleADIRONDACK MED[facility]ENTER EKG Comment on above:PalpitationsStart: 04-15-2025 End: 94-51-5216Kxkiov outpatient visit 25 minutesJaniya Raygoza MD Work Phone: noms FNR FMComment on above:Hyperglycemia (Primary Dx); Acute bronchitis, unspecified organism; PalpitationsStart: 04-15-2025 End: 58-71-0732bgvsrcuqlwEGDB F BOWERNot AvailableStart: 04-13-2025 End: 53-17-4526Nowjexwog department patient visitKiet Kelley MD Work Phone: [facility] Emergency DepartmentComment on above: Moderate persistent asthmatic bronchitis with acute exacerbation (Primary Dx) Start: 02-23-2025 End: 53-76-4539ixlufdhqeiVCVIBLNMAMADOU Bonillaard HospitalStart: 02-23-2025 End: 76-17-6244Qeuxgwmzuq hospital visit by Sahil Raygoza MD Work Phone: mWHZ LaboratoryStart: 02-23-2025 End: 58-30-5310Ildcjxlte Result EncounterJaniya Raygoza MD Work Phone: noms External Department UnsolicitedStart: 02-23-2025 End: 04-65-0852Fwgoojedz Result EncounterJaniya Raygoza MD Work Phone: noms External Department UnsolicitedStart: 02-23-2025 End: 72-53-2849Tiatcnyob encounterJaniya Raygoza MD Work Phone: noms FNR FMStart: 12-03-2024 End: 09-32-2325Yixvrrw encounter procedureLauryn MCLEOD Work Phone: [facility] Work Phone: Start: 12-03-2024 End: 97-05-9579Qanakxkf preventive med est patient 18-39 yrsAmy Ade MCLEOD Work Phone: noms BCP OBComment on above:Well woman exam with routine gynecological examStart: 12-03-2024 End: 48-78-1610lxjisqkqdrDKY ADENot AvailableStart: 12-03-2024 End: 81-86-5371Twcucd flowsheetLauryn MCLEOD Work Phone: noms BCP OBStart: 12-03-2024 End: 39-82-7318Zgykni flowsSalma MCLEOD Work Phone: NOSK BCP OBStart: 12-03-2024 End: 52-54-3517Dbqeedkne Result EncounterGeneric External Data ProviderNOMS External Department UnsolicitedStart: 11-07-2024 End: 38-52-1088Wcnyjw flowsheetChristy A Schultz ELECTRONIC MASKING SYSTEM OPERATOR Work Phone: NOXV FNR FMStart: 11-07-2024 End: 91-17-3475Gdubkf flowsheetChristy A Schultz ELECTRONIC MASKING SYSTEM OPERATOR Work Phone: NOCV FNR FMStart: 11-07-2024 End: 44-84-9746Apcgxz outpatient visit 25 minutesChristy A Schultz ELECTRONIC MASKING SYSTEM OPERATOR Work Phone: noms FNR FMComment on above:Bronchitis (Primary Dx); WheezingStart: 11-07-2024 End: 01-67-9119xqpdpunlojHRBUWDE A FITZPATRICKNot AvailableStart: 11-02-2024 End: 20-96-5704Pudilyits department patient visitKiet Kelley MD Work Phone: [facility] DepartmentComment on above: Right flank pain (Primary Dx); Acute bronchitis, unspecified organismStart: 08-07-2024 End: 84-08-8965Konvpwxfa Result EncounterGeneric External Data ProviderNOMS External Department UnsolicitedStart: 08-07-2024 End: 67-89-3238Trstsppnn Result EncounterGeneric External Data ProviderNOMS External Department UnsolicitedStart: 08-07-2024 End: 52-35-1678Tdkxotgao department patient visitKiet Kelley MD Work Phone: [facility] EDComment on above:Right flank pain (Primary Dx)Start: 05-22-2024 End: 64-57-1381Kxqufydeb department patient visitNorosibel Acosta [facility] Start: 03-23-2024 End: 51-94-0706Mktygrriw department patient visitSkaylynn Dalal MD Work Phone: [facility] EDComment on above:Visit for suture removal (Primary Dx)Start: 03-10-2024 End: 24-13-3156Unxrtagnk department patient visitBari Alicea [facility] Start: 02-19-2024 End: 01-97-2842Syyuzznod department patient visitColby Sky [facility] Start: 11-05-2023 End: 50-01-5073Seuvvfgnp department patient visitBari Alicea [facility] Start: 08-11-2023 End: 53-24-4672Wyfyrrkoz department patient visitAlvaro Alonso MD Work Phone: [phone] EDComment on above:Viral URI with cough (Primary Dx); Mild intermittent asthma with exacerbationStart: 43-72-7502Zpkshb outpatient visit 25 minutesJaniya Raygoza Work Phone: [phone]-QrflC[place] [address] Work Phone: Start: 29-80-5736fwidbeetuqMiulatoryDr. Jing Troncoso Facility:9370Start: 45-97-7484wjogmxquvgHnulatoryDr. Jing TroncosoFacility:9370Start: 22-67-5811Bglrx Chelsie Raygoza Work Phone: [phone]-CsnsCory [place] [address] Work Phone: Start: 86-16-5988Jweeq Chelsie Raygoza Work Phone: [phone]-[facility]qcD[facility] Work Phone: Start: 55-75-4254Ncgmv Chelsie Raygoza Work Phone: [phone]-NalmDallas County Hospital 120 Work Phone: Start: 00-01-6820xojkzojzrlMyba ThomaeFacility:9509 Start: 45-48-9516JYGYVHvsm F Bower Work Phone: [phone]-SrqgPatient's Choice Medical Center of [facility] CountyCinc[facility] 120 Work Phone: Start: 01-08-2023 End: 27-88-5039Tydbptazgl and management of inpatientAbdanagamalielpaul Emma Facility:[facility] Hospitaltart: 01-08-2023 End: 42-57-4217Fzcwsbsjmh and management of inpatientMD Janiya Raygoza Work Phone: [phone] Work Phone: Start: 01-07-2023 End: 01-86-8072Vpfilmsap department patient visitJocassie [facility] Start: 84-28-4823Nhlznw outpatient new 45 minutesJaniya Raygoza Work Phone: [phone]-Qmev GastroenterologyR[facility] 120 Work Phone: Start: 45-34-4699cgxaxuoqxuOyHarley Troncoso Facility:9370Start: 12-29-2022 End: 42-29-2120Sglfwpoto department patient visitJoselaurie Robb MD Work Phone: [facility] EDComment on above:Moderate persistent asthma with exacerbation (Primary Dx)Start: 11-24-2022 End: 04-68-4499tpjmjhoqwhJZRJDMT PROVIDERFacility:METROHealthStart: 10-31-2022 End: 16-49-1114qlhvitebhzYe9 ResourceMetroHealth Emergency Triage, Treat and TransportStart: 10-31-2022 End: 83-84-5101Xerjzjmyo department patient visitEt3 ResourceMetroAultman [facility] Emergency Triage, Treat and TransportComment on above:ArrivedStart: 07-16-2022 End: 13-27-1534sxoxgsoqfxSQ JANIYA RAYGOZAFacility:P2Tfivs: 06-18-2022 End: 94-69-3330glgcptnbjkDS ARLEY WITTFacility:M1Qheik: 05-29-2022 End: 76-47-5940ibapaidmitXQ MAKSIM MARKERFacility:Q4Lnunf: 04-22-2022 End: 69-10-0585mhjplhvkkiHX JANIYA ROSEERFacility:O3Ytugf: 10-29-2021 End: 89-73-5572yfvkngveyjVV JANIYA RAYGOZAFacility:H1 Procedures DateProcedureProcedure DetailPerforming ClinicianStart: 88-65-3252Niv spinal canal lumbar w/o & w/contr matrlGeneric External Data ProviderStart: 04-15-2025 Hemoglobin glycosylated f6lLcbsJaniya Raygoza MD Work Phone: Start: 04-15-2025H/O: hysterectomyH/O: hysterectomy Janiya Raygoza MD Work Phone: Start: 49-78-3371XDEA UA W/REFLEX CULTUREJaniya Raygoza MD Work Phone: Start: 67-62-3934Obfcu dip stick/tablet rgnt auto w/o microscopyJaniya Raygoza MD Work Phone: Start: 40-90-4958FJL,APTIMA HPV,AGE GDLNAmy Ade MCLEOD Work Phone: Start: 11-08-7718Nxbwhkfjytfrp metabolic panelKiet Kelley MD Work Phone: start: 98-93-8138Gnezmzuuhh exam chest 2 Ananda Kelley MD Work Phone: start: 72-15-2049Ykmte dip stick/tablet rgnt auto w/o microscopyKiet Kelley MD Work Phone: start: 15-68-3500Kk abdomen & pelvis w/contrast materialKiet Kelley MD Work Phone: start: 47-94-3543Ahsdxvglcw exam chest 2 Ananda Kelley MD Work Phone: start: 50-61-4535Kvmnzmnzcengq metabolic panelKiet Kelley MD Work Phone: start: 79-85-2422QAKR CULT,URINEGeneric External Data ProviderStart: 68-69-8614Dykbioyfos microscopic onlyKiet Kelley MD Work Phone: start: 08-07-2024 End: 66-37-0058Vaggb dip stick/tablet rgnt auto w/o microscopyKiet Kelley MD Work Phone: start: 90-46-4728Tafxdtrqsw exam chest 2 viewsAlvaro Alonso MD Work Phone: Start: 08-89-4950Turkzwrrlbiyj metabolic panelAlvaro Alonso MD Work Phone: Start: 13-11-8282Hztuzwqfbe exam chest 2 viewsJoseph Paul Robb MD Work Phone: Start: 08-07-2017H/O: sectionHistory of section, unknown scarJaniya Raygoza MD Work Phone: Cesarean sectionJaniya Raygoza Work Phone: CholecystectomyJaniya Sunday Idalmis Work Phone: Tonsillectomy and adenoidectomyJaniya Sunday Idalmis Work Phone: Plan of Treatment DateCare ActivityDetailAuthorStart: 23-85-5750Dxswcowc (RZV) Vaccine (1 of 2) Shingles (RZV) Vaccine (1 of 2)MetroHealthStart: 15-66-2712SHhB/Tdap/Td vaccine (2 - Td or Tdap)DTaP/Tdap/Td vaccine (2 - Td or Tdap)[facility] Start: 30-17-6706Kbcuhlelv vaccinationInfluenza Vaccine (#1)[facility] Comment on above:Postponed from 07/26/2025 (Patient Refused)Start: 08-20-2025 End: 88-11-1757Iqqcbun encounter uugtsfcxi12/26/2025 4:30 PM EDT Office Visit [facility] [address] [place] [address] Janina Cunningham NP [address] [facility] [place] [address] ArrivedHCA Florida Oak Hill HospitalComment on above:Arrived Start: 08-20-2025 End: 88-81-6103IL Lumbar spine WO and W contrast IVMR lumbar spine w and wo contrast Imaging Routine Chronic bilateral low back pain with bilateral sciatica Expected: 08/20/2025, Expires: 08/20/2026[facility] Work Phone: Comment on above:Expected: 08/20/2025, Expires: 08/20/2026Start: 22-96-4415Vexxncalv vaccinationWright Memorial HospitalStart: 2025 Influenza vaccinationFlu vaccine (Season Ended)[facility] Ricarda [facility] SystemStart: 05-26-2025 End: 79-79-7623Kaokzrm encounter cemorgmfx95/02/2025 5:30 PM EDT Office Visit [facility] [address] [place] [address] Anaya Morton NP [address] [place] [address] [facility] FNR FMStart: 05-14-2025 End: 60-38-7269Oosdrtz encounter procedureNOMN FNR FMComment on above:Arrived Start: 04-15-2025 End: 55-25-8995KAV 12 leadECG 12 lead ECG Routine Palpitations Expected: 04/15/2025 (Approximate), Expires: 04/15/2026[facility] Work Phone: Comment on above:Expected: 04/15/2025 (Approximate), Expires: 04/15/2026Start: 12-03-2024 End: 32-09-2831Yvehybk encounter xtnizwmzw32/09/2025 2:50 PM EST Office Visit [facility] [address] [address] Lauryn Booker PA [address] [place] [address] ArrivedK[facility] BCP OBComment on above:ArrivedStart: 11-07-2024 End: 47-56-0371Pinnlbm encounter dodsflrrt34/14/2024 8:00 AM EST Office Visit [facility] [address] [place] [address] [phone] Schultz NP [address] [place] [address] ArrivedNOMS FNR FMComment on above:ArrivedStart: 93-12-3727GQVGH-19 Vaccine ( season)COVID-19 Vaccine ( season)[facility]Start: 13-35-6137LEWPM-19 Vaccine ()COVID-19 Vaccine ( season)[facility] HospitalStart: 88-79-8365Aqhqahfcx vaccinationInfluenza Vaccine (#1)[facility] HealthcareStart: 92-41-9080Dcdjehjll vaccinationBON [facility]ACH[facility]ODStart: 45-09-7499Zbfqdqyjb vaccinationFlu vaccine (#1)[facility]ITALStart: 45-41-3040JdnpieaidAvita Health System Bucyrus Hospitaltart: 29-12-4414Mdblqdrw admissionAvita Health System Bucyrus Hospitaltart: 72-22-7423Qxqwiyxdz vaccinationInfluenza Vaccine (#1)MetroHealthStart: 99-93-8387Bseowbbyg vaccinationFlu vaccine (#1)[facility]ITALStart: 11-30-9431Hyalddfcp for malignant neoplasm of cervixWYTHE [facility]PITAL Start: 73-99-4641Pnxkkkkwrd A1c sqxjtbwvsxnC4N test (Diabetic or Prediabetic)[facility]ITALStart: 03-00-1554Fugozjdiq for malignant neoplasm of cervix Pap SmearMetroHealthStart: 96-84-5150UBdG/Tdap/Td vaccine (1 - Tdap)DTaP/Tdap/Td vaccine (1 - Tdap)[facility]ITALStart: 44-23-7428Iwnobpjap B vaccine (1 of 3 - 19+ 3-dose series)Hepatitis B vaccine (1 of 3 - 19+ 3-dose series)[facility]ITALStart: 71-59-5804Zngqvonlbtml 0-49 years Vaccine (1 of 2 - PCV)Pneumococcal 0-49 years Vaccine (1 of 2 - PCV)[facility] HospitalStart: 95-02-3935Aechormrc C screeningMetroHealthStart: 01-06-6039Fkovwsp + diphtheria + acellular pertussis vaccine (product)Tdap BoosterMetroHealthStart: 2004 HIV screeningMetroHealthStart: 29-59-6355Xusjvdvvc vaccine (1 of 2 - 13+ 2-dose series)Varicella vaccine (1 of 2 - 13+ 2-dose series)[facility] Start: 28-47-5429Sumpstnzbe ScreenDepression ScreenWYTHE COUNTY COMMUNITY HOSPITAL Start: 03-94-4765Sqlixuvzxqmz 0-64 years Vaccine (1 - PCV)Pneumococcal 0-64 years Vaccine (1 - PCV)[facility]ITALStart: 79-69-3783Kfsdxrshxrwq 0- 64 years Vaccine (1 of 2 - PCV)Pneumococcal 0-64 years Vaccine (1 of 2 - PCV)[facility]ITALStart: 87-51-2377Qztdvtpnr vaccine (1 of 2 - 2-dose childhood series)Varicella vaccine (1 of 2 - 2-dose childhood series)[facility]ITALStart: 23-67-5618APPRR-19 Vaccine (#1)COVID-19 Vaccine (#1) MetroHealthStart: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 Janiya Raygoza MD [address] [place] [address] PCP - GeneralFami Medicine12/02/23 Nallely Larose PA [address] [place] [address] PCP - [facility]11/25/24 Danilo Murcia, PURCHASING MANAGER/SALES [address] [place] [address] Licensed Practical NurseF[facility] Medicine05/11/25Te MemberRelationshipSpecialty Start DateEnd Date Janiya Raygoza MD [address] [place] [address] PCP - [facility] Medicine12/02/23 Nallely Larose PA [address] [place] [address] PCP - [facility]11/25/24 Danilo Murcia, PURCHASING MANAGER/SALES [address] [place] [address] Licensed Practical NurseFamily Medicine05/11/25Te MemberRelationshipSpecialty Start DateEnd Date Janiya Raygoza MD [address] [place] [address] PCP - GeneralF[facility]ib[facility] Medicine12/02/23 Nallely Larose PA [address] [place] [address] PCP - [place] [address]/25 Danilo Murcia, PURCHASING MANAGER/SALES [address] [facility] [address] [place] [address], [place] [address] Licensed Practical NurseFamily Medicine05/11/25Team MemberRelationshipSpecialty Start DateEnd Janiya Raygoza MD [address] [place] [address] PCP - GeneralFamily Medicine12/02/23 Nallely Larose PA [address] [place] [address] PCP - [facility]11/25/24 Mamta Mir, LABORATORY EQUIPMENT CLEANER [address] [place] [address] Social WorkerFamily Medicine05/20/25 Jennifer Murrell LPN Licensed Practical NurseFamily Medicine05/21/25Te MemberRelationshipSpecialty Start DateEnd Janiya Raygoza MD [address] [place] [address] PCP - GeneralFamily Medicine12/02/23 Nallely Larose PA [address] [place] [address] PCP - [facility]11/25/24 Mamta Mir, LABORATORY EQUIPMENT CLEANER [address] [place] [address] Social WorkerFamily Medicine05/20/25 Jennifer Murrell LPN Licensed Practical NurseFamily Medicine05/21/25Team MemberRelationshipSpecialty Start DateEnd Date Janiya Raygoza MD [address] [place] [address] PCP - GeneralFamily Medicine12/02/23 Nallely Larose PA [address] [place] [address] PCP - [facility]11/25/24 Mamta Mir, [facility] [address] [place] [address] Social WorkerFamily Medicine05/20/25 Jennifer Murrell LPN Licensed Practical NurseFamily Medicine05/21/25Team MemberRelationshipSpecialty Start DateEnd Date Janiya Raygoza MD [address] [place] [address] PCP - GeneralFamily Medicine12/02/23 Nallely Larose PA [address] [place] [address] PCP - [facility]11/25/24 Mamta Mir, [facility] [address] [facility] [place] [address] Social WorkerFamily Medicine05/20/25 Jennifer Murrell LPN Licensed Practical NurseFamily Medicine05/21/25Team MemberRelationshipSpecialty Start DateEnd Date Janiya Raygoza MD [address] [place] [address] PCP - GeneralFamily Medicine12/02/23 Nallely Larose PA [address] [place] [address] PCP - [facility]11/25/24 Mamta Mir LSW [address] [place] [address] Social WorkerFaally Medicine05/20/25 Jennifer Murrell LPN [facility]05/21/25 FOR RECORDS PERTAINING TO PATIENTS WHO ARE [...] BE BASED ON THE PRIMARY CLINICAL RECORDS. [facility] [employer] provides no warranty or guarantee of the accuracy or completeness of information in this document.
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
== END 2025-09-27 13:02 | disposition home or self-care (01) ==
LOC: PM 13:01
PROVIDERS: PCP Family Medicine; Visit Provider Anesthesiology
DX: M48.062 Spinal stenosis, lumbar region with neurogenic claudication (principal)
CPT/HCPCS: G0463

== ENCOUNTER 2025-10-04 08:38 | Day surgery (SDC) | payer OTHER, SELFPAY ==
--- OUTSIDE RECORDS SUMMARY | 2025-10-04 08:40 | XMS_ITS | Clinical Summary ---
Author Organization [facility]In [facility] tem Address [id number] [address] [place] [address] Care Team Providers Care Correctional Case Manager Name Role Phone Janiya Raygoza MD Primary Care Provider [phone] Allergies Active AllergyReactionsCriticalityNoted DateCommentsAdhesive Tape-SiliconesHives 07/03/20181403BrqbrmKwfjFfl40/09/4815BbvjzirlyadNrysrbiUfe48/21/2017 Medications * This document contains information received from the source organization and may not represent a complete record from that organization. MedicationSigDispense QuantityRefillsLast FilledStart DateEnd DateStatus hydrOXYzine (ATARAX) 25 mg tablet 07/23/2022ctive escitalopram (LEXAPRO) 10 mg tablet Take 1 tablet (10 mg total) by mouth in the morning. 30 tablet ctive QUEtiapine (SEROquel) 25 mg tablet Take 1 tablet (25 mg total) by mouth nightly. 30 tablet ctive Active Problems ProblemNoted DateDiagnosed DateSevere episode of recurrent major depressive disorder, without psychotic vofinoon17/17/2022lcohol use disorder, severe, in early dobuwjsmi67/17/2022Major depressive disorder, recurrent episode, moderate 01/16/2018Fetal drug exposure: Utmfsx6308/07/2017History of section, unknown scar08/07/2017Sacrococcygeal disorders, not elsewhere classified 2017Right hip pain2017Lumbago with sciatica, unspecified side 2017Left knee pain2017Spondylolysis, lumbosacral zehrxa8006/25/2017 Spondylosis without myelopathy or radiculopathy, lumbosacral chmcln9306/25/2017 Back muscle spasm06/25/20175552Ahrkixn91/01/2017Encounter for therapeutic drug khgptbnwoy65/01/2017Asthma affecting , ygmhgbauis94/24/2017History of kakkcpcpefuk70/24/6071Pbdcicadwer94/24/2017History of yolosaw0906/17/2017Post traumatic stress disorder (PTSD)06/17/2017 Resolved Problems ProblemNoted DateDiagnosed DateResolved DateLong term (current) use of opiate ntiefohxc45Nausea/vomiting in skwaeyhiz52 Family History Medical HistoryRelationNameCommentsAsthmaFatherCOPDFatherDiabetesFather HypertensionFatherAsthmaMotherBack ProblemsMotherdegenerative disc diseaseCOPD MotherKidney diseaseMotherOsteoarthritisMotherOsteoporosisMotherSeizuresMother StrokeMotherAutismSonRelationNameStatusCommentsFatherAliveMotherAliveSon Social History Tobacco UseTypesPacks/DayYears UsedDateSmoking Tobacco: Heavy SmokerCigarettes 0.514Smokeless Tobacco: Never Tobacco Cessation:Ready to Q uit: No; Counseling Given: Yes Comments:AT DR. WHITTAKER Alcohol UseStandard Drinks/WeekCommentsNo0 (1 standard drink = 0.6 oz pure alcohol)ChildcareAnswerDate YzugwnbaWonnaekadKtdagjf98/30/2019EmploymentAnswer Date WzapqsjgArwizycnfbErejtoo05/30/2019Purpose - LifeAnswerDate RecordedPurpose and direction in gaxdLsbelfl54/22/2021CommentsNoSex and Gender InformationValueDate RecordedSex Assigned at BirthNot on fileLegal SexFemale 06/30/2015 11:40 AM EDTGender IdentityNot on fileSexual OrientationNot on file Last Filed Vital Signs Vital SignReadingTime TakenCommentsBlood Gpsoaifp527/6711/01/2022 12:22 PM EDT Uuclz829009/27/2022 12:22 PM BGQLjwxdgrrcck84.5 ??C (97.7 ??F)09/27/2022 12:22 PM EDTRespiratory Ygud279211/27/2021 12:22 PM EDTOxygen Ywxclndbip653%09/16/2022 7:02 PM EDTInhaled Oxygen Concentration--Tajyel30.9 kg (143 lb)09/27/2022 12:22 PM SHWIzuffr512.6 cm (5' 4 )09/27/2022 12:22 PM EDTBody Mass Index24.5509/27/2022 12:22 PM EDT Plan of Treatment Health MaintenanceDue DateLast DoneCommentsDepression Uhhjcgnue88/01/2001Tobacco Oaekgyjiq16/01/2001Adult BMI Zgzinkksw71/01/2007DTaP,Tdap and Td Vaccines (1 - Tdap)2008Influenza Klwoquf18/01/226908, 10/26/2005 Medical Devices Not on file Insurance Care Teams Team MemberRelationshipSpecialtyStart DateEnd Janiya Raygoza MD PCP - GeneralFamily Medicine04/13/17
--- OUTSIDE RECORDS SUMMARY | 2025-10-04 08:40 | XMS_ITS | Clinical Summary ---
Author Organization [facility] Address [address] [place] [address] Care Team Providers Care Loan Servicing Specialist Name Role Phone Janiya Raygoza MD Primary Care Provider [phone] Encounters DateTypeDepartmentCare OaanGpwxcmpkpdb32/20/2025Telephone [facility] [address] [place] [phone] Rebeca Gibson Ntlsgvty20/20/2025Orders Only [facility] [address] [phone] Rebeca Gibson 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)from Last 3 Months Social History Tobacco UseTypesPacks/DayYears UsedDateSmoking Tobacco: Never Assessed CommentsUnknownSex and Gender InformationValueDate RecordedSex Assigned at Not on fileLegal GrkFrswrw31/20/2025 8:42 AM EDTGender IdentityNot on fileSexual OrientationNot on file Plan of Treatment Health MaintenanceDue DateLast DoneCommentsHEPATITIS C VIRUS OMGAPNZWP1989 BITUTZH0006/25/1989HIV SCREENING JRZCIFBANG24/01/2004HEP B VACCINE (1 of 3 - 19+ 3-dose series)2008TDAP (ADULT)2008CERVICAL CANCER SCREENING JFRXCJMIIS20/01/2010HPV VACCINE (1 - 3-dose SCDM series)2016COVID-19 VACCINE ( - 2024- season)2025INFLUENZA VACCINE (#1)2025 PNEUMOCOCCAL VACCINE SERIESAged OutNo longer eligible based on patient's age to complete this topic Care Teams Team MemberRelationshipSpecialtyStart DateEnd Date Janiya Raygoza MD [address] [place] [address] PCP - GeneralFamily Kebkketf89/20/25
--- OUTSIDE RECORDS SUMMARY | 2025-10-04 08:40 | XMS_ITS | Clinical Summary ---
Author Organization [facility] Address [address] [place] [address] Care Team Providers Care Bone Char Operator Name Role Phone Janiya Raygoza Primary Care Provider [phone] Allergies Active AllergyReactionsCriticalityNoted DateCommentsPenicillin GRashLow 05/08/2025 Medications No known medications Social History Tobacco UseTypesPacks/DayYears UsedDateSmoking Tobacco: Every DayCigarettes Smokeless Tobacco: Never Tobacco Cessation:Ready to Q uit: Not Asked; Counseling Given: Not Answered Alcohol UseStandard Drinks/WeekCommentsNever0 (1 standard drink = 0.6 oz pure alcohol)CommentsUnknownSex and Gender InformationValueDate RecordedSex Assigned at BirthNot on fileLegal QfpTftrag62/14/2025 9:57 AM EDTGender Identity Mjfzyi8905/08/2025 12:20 PM EDTSexual CrtdzgsdafwImthtvsz56/14/2025 12:20 PM EDT Last Filed Vital Signs Vital SignReadingTime TakenCommentsBlood Dhyjqftz460/7905/08/2025 11:30 AM EDT Aktza794705/08/2025 11:30 AM FPTAyfkvqkvuxu94.6 ??C (97.9 ??F)05/08/2025 10:01 AM EDTRespiratory Civf556805/08/2025 11:30 AM EDTOxygen Cfcudpjdql66%05/08/2025 11:30 AM EDTInhaled Oxygen Concentration--Htsavv65.6 kg (160 lb)05/08/2025 10:18 AM MGWSspndc740.6 cm (5' 4 )05/08/2025 10:18 AM EDTBody Mass Index27.46005/08/2025 10:18 AM EDT Plan of Treatment Health MaintenanceDue DateLast DoneCommentsDepression Screening/Follow-Up (PHQ-2/9)2001HIV Hddhzltdq42/01/2004Hepatitis C Ietiexark16/01/2007 Pneumococcal Vaccine (1 of 2 - PCV)2008HPV/Pzqyzc0806/25/2019COVID-19 Vaccine ( - season)2025Influenza Vaccine (#1)2025 09/05/2017, 10/26/2005Wellness Visit601/ervical Cancer Cprltvdsm20/09/2028Pap Smear/07/2025Tetanus: Every 10yrs (RETIRED) / Insurance MemberSubscriberPlan / Payer (Effective 2024-Present)Name:Shirin Burgos Relation to Subscriber:SelfName:Shirin Burgos Payer ID:[id number] (NAIC) Group ID:[id number] Type:Not on file Address: [place] [id number] Care Teams Team MemberRelationshipSpecialtyStart DateEnd Date Janiya Raygoza [address] [place] [address] PCP - GeneralFamily Medicine05/08/25
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
--- OUTSIDE RECORDS SUMMARY | 2025-10-04 08:40 | XMS_ITS | Clinical Summary ---
Author Organization [facility] Address [address] [place] [address] Phone Care Team Providers Care Copy Messenger Name Role Phone Janiya Raygoza MD Primary Care Provider [phone] Social History Tobacco UseTypesPacks/DayYears UsedDateSmoking Tobacco: Never Assessed CommentsUnknownSex and Gender InformationValueDate RecordedSex Assigned at Not on fileLegal TveTpdomb17/25/2022 9:48 PM ESTGender IdentityNot on fileSexual OrientationNot on file Last Filed Vital Signs Vital SignReadingTime TakenCommentsBlood Dyaszlls616/8201/03/2023 2:50 PM EST Ohbrr246701/03/2023 2:50 PM ESTTemperature--Respiratory Jfkp776001/03/2023 2:50 PM ESTOxygen Saturation--Inhaled Oxygen Concentration--Thlcuh83.2 kg (146 lb) 01/03/2023 2:50 PM QAPXikrns675.6 cm (5' 4 )01/03/2023 2:50 PM ESTBody Mass Index25.0601/03/2023 2:50 PM EST Plan of Treatment Health MaintenanceDue DateLast DoneCommentsHIV Evfutudrk1989Lipid Panel 1989Yearly Adult Zbkijrif1989MMR Vaccines (1 of 1 - Standard series) 1990Hepatitis C Kwqwclkrq62/01/2007Hepatitis B Vaccines (1 of 3 - 19+ 3- dose series)2008Pneumococcal Vaccine: Pediatrics and At-Risk Adult Patients (1 of 2 - PCV)2008Cervical Cancer Rxyjtsruv20/01/2010HPV/Cotest 2010Pap Smear2010DTaP/Tdap/Td Vaccines (1 - Tdap)2011HPV Vaccines (1 - 3-dose standard series)2016Influenza Vaccine (#1)2025 COVID-19 Vaccine (1 - 2024- season)2025Diabetes Bzzvrnuml80/10/2026 02/01/2023Zoster Vaccines (1 of 2)2039HIB VaccinesAged OutNo [...] this topic Procedures Procedure NamePriorityDate/TimeAssociated DiagnosisCommentsCOMPREHENSIVE METABOLIC FRNQKVccsjjf44/10/2023 9:40 AM EST from Last 3 Months or Most Recently Relevant to Health Maintenance Results * Comprehensive Metabolic Panel (02/01/2023 9:40 AM EST)ComponentValueRef Range Test MethodAnalysis TimePerformed AtPathologist JdznckonvXozdshz5342 - 99 mg/[facility] UWUVnnsrk039361 - 145 mmol/[facility] LABPotassium3.63.5 - 5.3 mmol/[facility] QRKFrnnkvon823 98 - 107 mmol/[facility] EYSGpxdaymtien9539 - 32 mmol/L [facility] LABAnion Qzi8334 - 20 mmol/[facility] LABUrea Themywui88 - 23 mg/[facility] LABCreatinine0.640.50 - 1.05 mg/[facility] LABGFR Female>90>90 mL/min/1.14x1RAQWCBVKFHOSPITAL FOR SPECIAL SURGERY LABComment: CALCULATIONS OF ESTIMATED GFR ARE PERFORMED USING THE 2020 CKD-EPI STUDY REFIT EQUATION WITHOUT THE RACE VARIABLE FOR THE IDMS-TRACEABLE CREATININE METHODS. https://jasn.asnjournals.org/content//ASN.8535630823 Calcium9.28.6 - 10.3 mg/[facility] LABAlbumin4.33.4 - 5.0 g/dL [facility] LABAlkaline Mdnlgbhausp4614 - 110 U/[facility] LABTotal Protein6.66.4 - 8.2 g/[facility] JJDTEK349 - 39 U/[facility] LABTotal Bilirubin0.60.0 - 1.2 mg/[facility] LABALT (SGPT)127 - 45 U/[facility] LABComment: Patients treated with Sulfasalazine may generate falsely decreased results for ALT. Specimen (Source)Anatomical Location / LateralityCollection Method / Volume Collection TimeReceived Time02/01/2023 9:40 AM EST02/01/2023 10:33 AM EST Narrative Authorizing ProviderResult TypeResult StatusDale Efren Troncoso DOL BLOOD ORDERABLES Final ResultPerforming OrganizationAddressCity/State/ZIP CodePhone Number [facility] [address] [place] [address] from Last 3 Months or Most Recently Relevant to Health Maintenance Insurance [address] [place] [id number] Care Teams Team MemberRelationshipSpecialtyStart DateEnd Janiya Raygoza MD [address] [place] [address] PCP - General01/03/23
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
--- OUTSIDE RECORDS SUMMARY | 2025-10-04 08:40 | XMS_ITS | Clinical Summary ---
Author Organization [facility] Address [address] [facility] [address] Care Team Providers Care House Carpenter Name Role Phone Unavailable Primary Care Provider Unavailabl e Source Comments The following information is NOT included in Care Everywhere downloads:Psychiatric notes, ECG results, Cardiac Rehab notes, Pulmonary Function notes, data from SmartForms (includes but not limited toPregnancy data,audiograms, eye exams, pre-surgical evaluation notes, well-child exam data).[facility] Social History Tobacco UseTypesPacks/DayYears UsedDateSmoking Tobacco: Never Assessed CommentsUnknownSex and Gender InformationValueDate RecordedSex Assigned at Not on fileLegal WevMxvapj96/31/2022 3:43 AM ESTGender IdentityNot on fileSexual OrientationNot on file Last Filed Vital Signs Vital SignReadingTime TakenCommentsBlood Zcjzyecj713/7210/31/2022 1:15 PM EST Qtzhr570410/31/2022 1:15 PM ESTTemperature--Respiratory Ddsc025201/01/2022 1:15 PM ESTOxygen Xserxojwwg39%10/31/2022 1:15 PM ESTInhaled Oxygen Concentration-- Weight--Height--Body Mass Index-- Plan of Treatment Health MaintenanceDue DateLast DoneCommentsMammography (shared decision-making, age 35-39)1989HIV Test2004Hepatitis C Slaofgfw67/01/2007Tdap Booster 2007Hepatitis A (HAV) Vaccine (optional start 19+ years)2008 Hepatitis B (HBV) Vaccine (1 of 3 - 19+ 3-dose series)2008Pap Smear 2010HPV Vaccine (optional start 27-45 years)2016COVID-19 Vaccine (2024- season)2025Influenza Vaccine (#1)2025Shingles (RZV) Vaccine (1 of 2)2039MammographyDiscontinuedPneumococcal Vaccine(s)Aged Out No longer eligible based on patient's age to complete this topic
--- OUTSIDE RECORDS SUMMARY | 2025-10-04 08:45 | XMS_ITS | CCD ---
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 [Entitic vol]95.0 zADnmqna31.0-100.0 [facility] CampusComment on above:Performed By: #### TROPI, LIP, CP, CDP #### [facility] [address] [place] [id number] Referral Nurse: ZULLY Dossonocytes (Bld) [#/Vol]0.60 10*3/uLNormal0.00-1.00 [facility] CampusComment on above:Performed By: #### TROPI, LIP, CP, CDP #### [facility] [address] [place] [address] Referral Nurse: ZULLY Dossonocytes/100 WBC (Bld)5 %Normal4-8[facility] CampusComment on above:Performed By: #### TROPI, LIP, CP, CDP #### [facility] [address] [place] [address] Referral Nurse: Sebastian Reyes MDNeutrophil (Seg)68 %Wktmbz30-06LiyevKettering Health Main CampusComment on above:Performed By: #### TROPI, LIP, CP, CDP #### [facility] [address] [place], [place] [id number] Referral Nurse: Manolo Doss mean volume (Bld) [Entitic vol]9.6 fL Normal6.0-12.0[facility] CampusComment on above:Performed By: #### TROPI, LIP, CP, CDP #### [facility] [address] [place] [address] Referral Nurse: Ashlie Doss (Bld) [#/Vol]323 10*3/zDSpztwg409-793 [facility] CampusComment on above:Performed By: #### TROPI, LIP, CP, CDP #### [facility] [address] [place] [address] Referral Nurse: DAGOBERTO Doss (Bld) [#/Vol]4.39 10*6/uLNormal4.00-5.20[facility] CampusComment on above:Performed By: #### TROPI, LIP, CP, CDP #### [facility] [address] [place], [place] [phone] Referral Nurse: ANNA DossBC (Bld) [#/Vol]11.7 10*3/uLHigh3.5-11.0[facility] CampusComment on above:Performed By: #### TROPI, LIP, CP, CDP #### [facility] [address] [place] [address] Referral Nurse: MIC Dossomp Metabolic Profon [id number] [Mass/Vol] 4.1 g/dLNormal3.5-5.2MThe MetroHealth SystemComment on above:Performed By: #### TROPI, LIP, CP, CDP #### [facility] [address] [place], [place] [phone] Referral Nurse: Rio Doss Phos73 U/PSumfbs44-482NbbrjKettering Health Main CampusComment on above:Performed By: #### NATALIE, LIP, CP, CDP #### [facility] [address] [place], [place] [phone] Referral Nurse: Sebastian Reyes MDALT [Catalytic activity/Vol]14 U/LNormal5-33[facility] CampusComment on above:Performed By: #### TROPI, LIP, CP, CDP #### [facility] [address] [place] [address] Referral Nurse: Sebastian Reyes MDAnion gap [Moles/Vol]17 mmol/LNormal9-17[facility] CampusComment on above:Performed By: #### NATALIE, LIP, CP, CDP #### [facility] [address] [place] [phone] Referral Nurse: Sebastian Reyes MDAST [Catalytic activity/Vol]14 U/LNormal<32MerManhattan Psychiatric CenterComment on above:Performed By: #### NATALIE, LIP, CP, CDP #### [facility] [address] [place] [phone] Referral Nurse: Sebastian Reyes MDBilirubin [Mass/Vol]0.3 mg/dLNormal0.3-1.2MercMayers Memorial Hospital DistrictComment on above:Performed By: #### TROPI, LIP, CP, CDP #### [facility] [address] [place] [phone] Referral Nurse: Sebastian Reyes MDBUN/CRE Rdllw5Uul6-17LgidmKettering Health Main CampusComment on above:Performed By: #### TROPI, LIP, CP, CDP #### [facility] [address] [place], [place] [id number] Referral Nurse: MIC Dossalcium [Mass/Vol]9.5 mg/dLNormal8.6-10.4[facility]de Memorial Hospitalment on above:Performed By: #### TROPI, LIP, CP, CDP #### [facility] [address] [place] [address] Referral Nurse: MIC Dosshloride [Moles/Vol]102 mmol/AAdmslg95-486UvymcMount St. Mary Hospital on above:Performed By: #### TROPI, LIP, CP, CDP #### [facility] [address] [place] [address] Referral Nurse: Sebastian Reyes MDCO2 [Moles/Vol]20 mmol/SHubpfz84-65HpaknMount St. Mary Hospital on above:Performed By: #### TROPI, LIP, CP, CDP #### [facility] [address] [place] [address] Referral Nurse: MIC Dossreatinine [Mass/Vol]0.6 mg/dLNormal0.5-0.9[facility] on above:Performed By: #### TROPI, LIP, CP, CDP #### [facility] [address] [place] [phone] Referral Nurse: Sebastian Reyes MDGFR/1.73 sq M.predicted among non-blacks MDRD (S/P/Bld) [Vol rate/Area]mL/min/{1.73_m2}Normal>60[facility] on above:Result Comment: These results are not [...] By: #### TROPI, LIP, CP, CDP #### [facility] [address] [place] [phone] Referral Nurse: Sebastian Reyes MDGlucose [Mass/Vol]104 mg/lIPwjv24-72MiwoqThe MetroHealth SystemComment on above:Performed By: #### ROYER ESTRADA, CP, CDP #### [facility] [address] [place] [address] Referral Nurse: GEOVANNY Dossotassium [Moles/Vol]3.7 mmol/LNormal3.7-5.3MThe MetroHealth SystemComment on above:Performed By: #### NATALIE LIP, CP, CDP #### [facility] [address] [place] [address] Referral Nurse: Sebastian Reyes MDProtein [Mass/Vol]6.8 g/dLNormal6.4-8.3MThe MetroHealth SystemComment on above:Performed By: #### ROYER ESTRADA, CP, CDP #### [facility] [address] [place] [address] Referral Nurse: Sebastian Reyes MDSodium [Moles/Vol]139 mmol/WJvfjsa456-531CeezuKettering Health Main CampusComment on above:Performed By: #### ROYER ESTRADA, CP, CDP #### [facility] [address] [place] [address] Referral Nurse: Sebastian Reyes MDUrea nitrogen [Mass/Vol]4 mg/dLLow6-20[facility] CampusComment on above:Performed By: #### NATALIE LIP, CP, CDP #### [facility] [address] [place] [phone] Referral Nurse: MIC Dossomprehensive Metabolic Panelon [id number] [Mass/Vol]4.1 g/dL3.5 - 5.2 g/dLBon [facility] HealthALP [Catalytic activity/Vol]73 U/L35 - 104 U/LBon [facility] HealthALT [Catalytic activity/Vol]14 U/L5 - 33 U/LBon [facility] HospitalAnion gap [Moles/Vol]17 mmol/L9 - 17 mmol/LBon SecSwed[facility] Medical Center IssaquahVisionarity HealthAST [Catalytic activity/Vol]14 U/L NINF - 32 U/LBon SecSwedish Medical Center IssaquahVisionarity [facility] ToledoBilirubin [Mass/Vol]0.3 mg/dL0.3 - 1.2 mg/dLBon SecSwed[facility] Medical Center IssaquahVisionarity HealthCalcium [Mass/Vol]9.5 mg/dL8.6 - 10.4 mg/dLBon [facility] HospitalVisionarity HealthChloride [Moles/Vol]102 mmol/L98 - 107 mmol/LBon [facility] HospitalCO2 [Moles/Vol]20 mmol/L20 - 31 mmol/LBon [facility] [employer] Creatinine [Mass/Vol]0.6 mg/dL0.5 - 0.9 mg/dLBon [facility]encor HospitalSame Day ServesEst, Glom Filt Rate- PINFBon [facility] HospitalComment on above: These results are not [...] that affects renal tubular secretion. Glucose [Mass/Vol]104 mg/oZArjp50 - 99 mg/dLBon [facility] [employer] Interpretation and review of laboratory resultsAbnormalBon [facility] [employer] Potassium [Moles/Vol]3.7 mmol/L3.7 - 5.3 mmol/LBon [facility] HospitalVisionarity [facility] ToledoProtein [Mass/Vol]6.8 g/dL6.4 - 8.3 g/dLBon [facility] HospitalVisionarity [facility] ToledoSodium [Moles/Vol]139 mmol/L135 - 144 mmol/LBon [facility] HospitalSame Day ServesUrea nitrogen [Mass/Vol]4 mg/dLLow 6 - 20 mg/dLBon [facility] [employer] SystemsUrea nitrogen/Creatinine [Mass ratio]7 mg/mg Low9 - 20Bon [facility] HospitalSame Day ServesLipaseon 99-34-0496Txhset [Catalytic activity/Vol]29 U/L13 - 60 U/LBon [facility] HospitalVisionarity [facility] Hospital ToledoLipase [Catalytic activity/Vol]29 U/TCmrhyn08-82HotzlMount St. Mary Hospital on above:Performed By: #### ROYER ESTRADA, CP, CDP #### [facility] [address] [place] [address] Referral Nurse: Sebastian Reyes MDNo Panel Informationon [id number] [facility] HospitalTroponinon 01-84-3507Ofqtejyd I.cardiac High sensitivity method [Mass/Vol] ng/L0 - 14 ng/LBon [facility] on above:High Sensitivity Troponin values cannot be compared with other Troponin methodologies.Bon [facility] Memorial Hospitalopon, High Sens<9Tkjvaq6-35WcjrqMount St. Mary Hospital on above:Result Comment: High Sensitivity Troponin values cannot be compared with other Troponin methodologies.Performed By: #### ROYER ESTRADA, JADE, CDP #### [facility] [address] [place] [address] Referral Nurse: Sebastian Reyes MDUrinalysison 82-47-5539Tvwxwtkyc Ql (U)Negative NEGATIVEBon [facility] HealthClarity (U)ClearClearBon [facility] Color (U)YellowYellowBon [facility] HospitalCommentLewisgale Hospital Montgomery Glucose Test strip (U) [Mass/Vol]NegativeNEGATIVE mg/dLBon [facility] Hemoglobin Auto test strip Ql (U)NegativeNEGATIVEBon [facility] HealthKetones (U) [Mass/Vol]NegativeNEGATIVE mg/dLBon [facility] HospitalLeukocyte esterase Test strip Ql (U)NegativeNEGATIVEBon [facility] HealthNitrite Ql (U)Negative NEGATIVEBon SecWoman's Hospital HealthpH (U)6.5 [pH]5.0 - 8.0Bon [facility] Protein (U) [Mass/Vol]NegativeNEGATIVE mg/dLBon Secours [facility] Hospitaly HealthSpecific gravity (U) [Rel density]1.0051.005 - 1.030Bon [facility] Community HospitalUrobilinogen Qn (U)Normal0.0 - 1.0 EU/dLBon [facility] Urinalysis, Routineon 14-90-7269Gsjuhckzc, SemiQt,UrNegativeNormalNEGMerManhattan Psychiatric CenterComment on above:Performed By: #### UA ####[facility] [address] [place] [address] Lab Director: Priscila Doss, UrineNegativeNormalNEGKettering Health Main CampusComment on above: Performed By: #### UA ####[facility] [address] [place] [address] Lab Director: MIC Dosslarity (U)Clear NormalCLEARMThe MetroHealth SystemComment on above:Performed By: #### UA ####[facility] [address] [place] [phone] Director: MIC Dossolor (U)YellowNormalYWayne HealthCare Main Campus Comment on above:Performed By: #### UA ####[facility] [address] [place] [address] Lab Director: Rachel Doss [facility], BeachwoodComment on above:Performed By: #### UA ####[facility] [address] [place] [address] Lab Director: Sebastian Reyes MDGlucose Ql (U)NegativeNormalUniversity Hospitals Samar[facility] Comment on above:Performed By: #### UA ####[facility] [address] [place] [address] Lab Director: Sebastian Reyes MDKetones Ql (U)NegativeNormalNEGKettering Health Main CampusComment on above:Performed By: #### UA ####[facility] [address] [place] [address] Lab Director: Sebastian Reyes MDLeukocyte esterase Test strip Ql (U)NegativeNormalNEGKettering Health Main CampusComment on above:Performed By: #### UA ####[facility] [address] [facility] [place] [phone] Director: Sebastian Reyes MDNitrite,UrNegativeNormalNEGKettering Health Main CampusComment on above:Performed By: #### UA ####[facility] [address] [place] [address] Lab Director: Sebastian Reyes MD PH,Ur6.5Vgcoja2.0-8.0[facility] CampusComment on above:Performed By: #### UA ####[facility] [address] [facility], [place] [phone] Director: GEOVANNY Dossrotein Ql (U)NegativeNormalNEG [facility] CampusComment on above:Performed By: #### UA ####[facility] [address] [place] [address] Lab Director: AUGUST Dosspec. [place],Ur1.384Aapxju7.005-1.030[facility] Comment on above:Performed By: #### UA ####[facility] [address] [facility], [place] [phone] Director: Sebastian Reyes MD Urobilinogen,UrNormalNormal0.0-1.0[facility] CampusComment on above: Performed By: #### UA ####[facility] [address] [place] [address] Lab Director: ADRIANNA Doss CHEST (2 VW)on [id number] CHEST (2 VW)EXAM: Chest x-ray HISTORY: . wheezing . COMPARISON: 08/07/2024 TECHNIQUE: Frontal and lateral chest FINDINGS: Heart and vascularity are unremarkable. Lungs are free of focal infiltrates. No bony abnormality was appreciated. IMPRESSION: No acute heart or lung disease identified. Interpreted by: Sebastian Robb MD Signed by: Sebastian Robb MD 11/02/24 Final resultNoProtestant HospitalXR Chest 2 Viewson 11-02-2024 No acute heart or lung disease identified. PN RIS CONSOLIDATEDEXAM: Chest x-ray HISTORY: . wheezing . COMPARISON: 08/07/2024 TECHNIQUE: Frontal and lateral chest FINDINGS: Heart and vascularity are unremarkable. Lungs are free of focal infiltrates. No bony abnormality was appreciated. PN Sebastian Vargas MD - 11/02/2024 EXAM: Chest x-ray HISTORY: . wheezing . COMPARISON: 08/07/2024 TECHNIQUE: Frontal and lateral chest FINDINGS: Heart and vascularity are unremarkable. Lungs are free of focal infiltrates. No bony abnormality was appreciated. IMPRESSION: No acute heart or lung disease identified. [facility] MontgomeryRadiology Study observation (narrative)[facility] Chest 2 ViewsOrdered By: Sebastian Robb on [id number] [facility] Work Phone: cult,Urineon [id number],UrineSpecimen Description .URINE, MIDSTREAM Culture NO SIGNIFICANT GROWTH Report Status FINAL 08/08/2024NoProtestant HospitalComment on above: Performed By: #### URC ####[facility] [address] [place] [address] Lab Director: Billy Chavez [facility] [address] [place], [place] [id number] Lab Director: Sebastian Reyes MD MHPT CULT,URINEon [id number] CULT,URINESpecimen Description .URINE, MIDSTREAMNOMS HealthcareMHPT CULT,URINECulture NO SIGNIFICANT GROWTHNOMS HealthcareMHPT CULT,URINEReport Status FINAL 08/08/2024NOMS HealthcareOriginal Ordering Provider: KIET RAMLINISYNCNONortheast Regional Medical Center with Auto Differentialon [id number] (Bld) [#/Vol]0.04 10*3/uLBON [facility] MED[facility] CENTERImmature granulocytes (Bld) [#/Vol]0.03 10*3/uLBON [facility] Interpretation and review of laboratory resultsAbnormalBON [facility] Lymphocytes/100 WBC (Bld)2.82 %[facility] HEALTH SYSTEMMonocytes/100 WBC (Bld) 0.75 %[facility] HEALTH SYSTEMNeutrophils/100 WBC (Bld)70 %47 - 75 %[facility] HEALTH SYSTEMSegmented neutrophils/100 WBC (Bld)8.15 %HighFAUQUIER HEALTH SYSTEMWBC other (Bld) [#/Vol]11.8HighBUCHANAN GENERAL HOSPITALCBC with Diffon [id number]/100 WBC (Bld)0 %Normal0-2BON [facility] Liverpool City Hospitalment on above:Performed By: #### LACTIC CDP, CP #### [facility] [address] [place] [address] Referral Nurse: Sebastian Reyes MDEosinophils (Bld) [#/Vol]0.05 10*3/uLNormal 0.00-0.40BON [facility] on above:Performed By: #### LACTICANN, CP #### [facility] [address] [place] [address] Referral Nurse: Sebastian Reyes MDEosinophils/100 WBC (Bld)0 %Normal0-5BON [facility] on above:Performed By: #### LACTIC CDP, CP #### [facility] [address] [place] [address] Referral Nurse: Sebastian Reyes MDErythrocyte distribution width (RBC) [Ratio]11.8 % Low12.1-15.2BON [facility] on above:Performed By: #### LACTIC CDP, CP #### [facility] [address] [place] [address] Referral Nurse: Sebastian Reyes MDHematocrit (Bld) [Volume fraction]43.8 %Normal 36.0-46.0BON [facility] on above:Performed By: #### LACTIC CDP, CP #### [facility] [address] [place] [address] Referral Nurse: Sebastian Reyes MDHemoglobin (Bld) [Mass/Vol]15.1 g/dLNormal 12.0-16.0BON SECCLEVELAND CLINIC UNION HOSPITALComaspirus iron river hospital on above:Performed By: #### LACTIC CDP, CP #### [facility] [address] [place] [address] Referral Nurse: Rachna Dossmature granulocytes/100 WBC (Bld)0 %Normal0-5BON [facility]CLicking [facility] on above:Performed By: #### CORTEZ CDP, CP #### [facility] [address] [place] [address] Referral Nurse: Sebastian Reyes MDLymphocytes/100 WBC (Bld)24 %Qywpgu75-84WJT SECLicking [facility] Hospital on above:Performed By: #### ANN TORO, CP #### [facility] [address] [place] [address] Referral Nurse: ZULLY DossCH (RBC) [Entitic mass]33.2 uaExkkmu62.0-34.0BON [facility]CLicking [facility] on above:Performed By: #### CORTEZ CDP, CP #### [facility] [address] [place] [address] Referral Nurse: SEMAJ DossC (RBC) [Mass/Vol]34.5 g/pHOafnam35.0-37.0BON [facility]CLicking [facility] on above:Performed By: #### LACTIC CDP, CP #### [facility] [address] [place] [id number] Referral Nurse: Sebastian Sturtz, MDMCV (RBC) [Entitic vol]96.3 hYHjpace58.0-100.0BON [facility] on above:Performed By: #### LACTIC, CDP, CP #### [facility] [address] [place] [address] Referral Nurse: ZULLY Dossonocytes/100 WBC (Bld)6 %Normal4-8BON [facility] on above:Performed By: #### LACTIC, CDP, CP #### [facility] [address] [place] [address] Referral Nurse: Anjel Dosstearmen mean volume (Bld) [Entitic vol]9.9 fL Normal6.0-12.0BON [facility] on above:Performed By: #### LACTIC, CDP, CP #### [facility] [address] [place] [address] Referral Nurse: Anjel Dosstehaseeb (Bld) [#/Vol]314 10*3/mBXmfkfb471-187ZUQ [facility] on above:Performed By: #### LACTIC, CDP, CP #### [facility] [address] [place] [address] Referral Nurse: Sebastian Reyes MDRBC (Bld) [#/Vol]4.55 10*6/uLNormal4.00-5.20BON [facility] on above:Performed By: #### LACTIC, CDP, CP #### [facility] [address] [place] [address] Referral Nurse: Shanna Doss. Basophil0.04 k/uLNormal0.00-0.20MerProMedica Memorial Hospital on above:Performed By: #### LACTIC, CDP, CP #### [facility] [address] [place] [address] Referral Nurse: Shanna Doss.Imm.Granulocyte0.03 k/uLNormal0.00-0.30[facility] CampusComment on above:Performed By: #### LACTIC CDP, CP #### [facility] [address] [place] [address] Referral Nurse: Shanna Doss.Neutrophil (Seg)8.15 k/uLHigh2.5-7.0[facility] CampusComment on above:Performed By: #### LACTIC, CDP, CP #### [facility] [address] [place] [address] Referral Nurse: Sebastian Reyes MDLymphocytes (Bld) [#/Vol]2.82 10*3/uLNormal 1.00-4.80[facility] CampusComment on above:Performed By: #### ANN TORO, CP #### [facility] [address] [place] [address] Referral Nurse: ZULLY Dossonocytes (Bld) [#/Vol]0.75 10*3/uLNormal0.00-1.00 [facility] CampusComaspirus iron river hospital on above:Performed By: #### CORTEZ CDP, CP #### [facility] [address] [place] [address] Referral Nurse: Sebastian Reyes MDNeutrophil (Seg)70 %Fpjvnr57-24CdvhfKettering Health Main CampusComment on above:Performed By: #### LACTIC, CDP, CP #### [facility] [address] [place] [id number] Referral Nurse: ANNA DossBC (Bld) [#/Vol]11.8 10*3/uLHigh3.5-11.0[facility] CampusComment on above:Performed By: #### LACTIC, CDP, CP #### [facility] [address] [place] [address] Referral Nurse: Sebastian Reyes, MDCT ABDOMEN PELVIS W IV CONTRASTon [id number] ABDOMEN PELVIS W IV CONTRASTEXAM: CT ABDOMEN [...] by: Gray Oro Jr., MD 08/07/24 Final resultNoParkview Health Abdomen and Pelvis W contrast Juan R 08-07-2024 Negative. [facility] RIS CONSOLIDATEDEXAM: CT ABDOMEN PELVIS W IV CONTRAST [...] glands, pancreas, spleen, liver and lung bases. [facility] Gray Mcrae Jr., MD - 08/07/2024 EXAM: [...] spleen, liver and lung bases. IMPRESSION: Negative. [facility] HOSPITALRadiology Study observation (narrative)[facility] Metabolic Profon [id number] [Mass/Vol]4.4 g/dLNormal3.5-5.2Mer[facility] Laird HospitalComment on above:Performed By: #### CORTEZ CDP, CP ####[facility] [address] [place] [address] Lab Director: Rio Doss Phos74 U/EXjlvcx83-780GzorzKettering Health Main CampusComment on above:Performed By: #### LACTIC CDP, CP ####[facility] [address] [place] [address] Lab Director: Sebastian Reyes MDALT [Catalytic activity/Vol]16 U/LNormal5-33[facility] CampusComaspirus iron river hospital on above:Performed By: #### CORTEZ CDP, CP ####[facility] [address] [place] [address] Lab Director: Maxx Doss gap [Moles/Vol]13 mmol/L Normal9-17[facility] Main CampusComment on above:Performed By: #### CORTEZ CDP, CP ####[facility] [address] [place] [address] Lab Director: Sebastian Reyes MDAST [Catalytic activity/Vol]15 U/LNormal<32[facility] CampusComment on above:Performed By: #### LACTIC, CDP, CP ####[facility] [address] [place] [address] Lab Director: Sebastian Reyes MDBilirubin [Mass/Vol]0.4 mg/dL Normal0.3-1.2MThe MetroHealth SystemComment on above:Performed By: #### LACTIC, CDP, CP ####[facility] [address] [place] [address] Lab Director: Sebastian Reyes MDBUN/CRE Mjxxh0Uzj0-78KehlnKettering Health Main CampusComment on above:Performed By: #### LACTIC, CDP, CP ####[facility] [address] [place] [phone] Director: MIC Dossalcium [Mass/Vol]9.2 mg/dLNormal8.6-10.4[facility] CampusComment on above:Performed By: #### LACTIC, CDP, CP ####[facility] [address] [place] [phone] Director: MIC Dosshloride [Moles/Vol]103 mmol/KLxgqmg94-267QiujqKettering Health Main CampusComment on above:Performed By: #### LACTIC, CDP, CP ####[facility] [address] [place] [phone] Director: Sebastian Reyes MDCO2 [Moles/Vol]22 mmol/XXzlqgg84-12PwoevKettering Health Main Campus Comment on above:Performed By: #### LACTIC, CDP, CP ####[facility] [address] [place] [phone] Director: MIC Dossreatinine [Mass/Vol]0.7 mg/dLNormal0.5-0.9[facility] Comment on above:Performed By: #### LACTIC, CDP, CP ####[facility] [address] [place] [address] lab Director: Sebastian Reyes MDGFR/1.73 sq M.predicted among non-blacks MDRD (S/P/Bld) [Vol rate/Area]mL/min/{1.73_m2}Normal>60[facility] CampusComment on above:Result Comment: These results are not [...] tubular secretion.Performed By: #### ANN TORO, CP ####[facility] [address] [place] [phone] Director: Sebastian Reyes MDGlucose [Mass/Vol]77 mg/tHWtxanb87-90LeaerThe MetroHealth SystemComment on above:Performed By: #### ANN TORO, CP ####[facility] [address] [place] [address] Lab Director: GEOVANNY Dossotassium [Moles/Vol]3.6 mmol/LLow3.7-5.3MThe MetroHealth SystemComment on above:Performed By: #### ANN TORO, CP ####[facility] [address] [place] [address] Lab Director: Sebastian Reyes MDProtein [Mass/Vol]7.6 g/dLNormal6.4-8.3MThe MetroHealth System Comment on above:Performed By: #### CORTEZ CDP, CP ####[facility] [address] [place] [id number] Lab Director: Sebastian Reyes MDSodium [Moles/Vol]138 mmol/YHtoiwf560-523ZnipoKettering Health Main CampusComment on above:Performed By: #### CORTEZ CDP, CP ####[facility] [address] [place] [address] lab Director: Sebastian Reyes MD Urea nitrogen [Mass/Vol]4 mg/dLLow6-20[facility] CampusComaspirus iron river hospital on above: Performed By: #### LACTIC, ANN, CP ####[facility] [address] [place] [address] lab Director: Sebastian Reyes MD Comprehensive Metabolic Panelon 89-59-1375Dsdpcoy [Mass/Vol]4.4 g/dL3.5 - 5.2 g/dLBON [facility] CENTERALP [Catalytic activity/Vol]74 U/L35 - 104 U/LBON [facility]ENTERALT [Catalytic activity/Vol]16 U/L5 - 33 U/LBON [facility]ENTERAnion gap [Moles/Vol]13 mmol/L9 - 17 mmol/LBON [facility] AST [Catalytic activity/Vol]15 U/LNINF - 32 U/LBON [facility] CENTERBilirubin [Mass/Vol]0.4 mg/dL0.3 - 1.2 mg/dLBON [facility]ENTERCalcium [Mass/Vol]9.2 mg/dL8.6 - 10.4 mg/dLBON [facility] CENTERChloride [Moles/Vol]103 mmol/L98 - 107 mmol/LBON [facility]ENTERCO2 [Moles/Vol]22 mmol/L20 - 31 mmol/LBON [facility]ENTERCreatinine [Mass/Vol]0.7 mg/dL0.5 - 0.9 mg/dLBON [facility] CENTEREst, Glom Filt Rate- PINFBON [facility] CENTERComaspirus iron river hospital on above: These results are not intended [...] secretion. Glucose [Mass/Vol]77 mg/dL70 - 99 mg/dLBON [facility] CENTERInterpretation and review of laboratory resultsAbnormalFAUQUIER HEALTH SYSTEMPotassium [Moles/Vol]3.6 mmol/LLow3.7 - 5.3 mmol/LBON [facility]ENTERProtein [Mass/Vol]7.6 g/dL6.4 - 8.3 g/dLBON [facility]ENTERSodium [Moles/Vol]138 mmol/L135 - 144 mmol/LBON [facility] CENTERUrea nitrogen [Mass/Vol]4 mg/dLLow 6 - 20 mg/dLBON [facility] CENTERUrea nitrogen/Creatinine [Mass ratio]6 mg/mg Low9 - 20BON [facility]ARE CENTERHCG, ,Urineon 32-72-3820Vopo HCG ( test) Ql (U)NegativeNormalNEGMercy Laird HospitalComment on above:Performed By: #### UHCG #### [facility] [address] [place] [address] Referral Nurse: Sebastian Reyes MDLactic Acidon 26-70-6219Puedttbrbdwgjm and review of laboratory resultsAbnormSentara Obici HospitalLactate (BldV) [Moles/Vol] 2.5 mmol/LHigh0.5 - 2.2 mmol/LBON [facility] Lactate [Moles/Vol]2.5 mmol/LHigh0.5-2.2MercMayers Memorial Hospital DistrictComment on above: Performed By: #### LACTIC, CDP, CP ####[facility] [address] [place] [address] Lab Director: Sebastian Reyes MD Microscopic Urinalysison 08-07-2024-BON [facility] CENTERBacteria LM Ql (Urine sed)2+AbnormalNoneBON [facility] CENTEREpithelial cells LM.HPF (Urine sed) [#/Area]2 TO 5/HPFFAUQUIER HEALTH SYSTEMRBC LM.HPF (Urine sed) [#/Area] None SeenFAUQUIER HEALTH SYSTEMWBC LM.HPF (Urine sed) [#/Area]0 TO 20 /HPFBON [facility]ENTERNo Panel Informationon 62-90-7266Uorwqowolikwyt and review of laboratory resultsAbnormalBON [facility] , Urineon 06-76-3868YAQ ( test) Ql (U)NegativeNEGATIVEBON [facility]ARE CENTERUrinalysison 81-82-3427Pigdiztda Ql (U)NegativeNEGATIVEBON [facility]ENTERClarity (U)ClearClearBON [facility]ENTERColor (U)YellowYellowBON [facility]ENTERCommentBON [facility] CENTERGlucose Test strip (U) [Mass/Vol]NegativeNEGATIVE mg/dLBON [facility]ENTERHemoglobin Auto test strip Ql (U)NegativeNEGATIVEBON [facility] CENTERKetones (U) [Mass/Vol]NegativeNEGATIVE mg/dLBON [facility] Leukocyte esterase Test strip Ql (U)1+AbnormalNEGATIVEFAUQUIER HEALTH SYSTEM Nitrite Ql (U)NegativeNEGATIVEBON [facility] HEALTHpH (U)6.0 [pH]5.0 - 8.0BON [facility]ENTERProtein (U) [Mass/Vol]1+AbnormalNEGATIVE mg/dLBSOUTHERN VIRGINIA REGIONAL MEDICAL CENTERSpecific gravity (U) [Rel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 E9/RWqensa910.0-500.0[facility] Comment on above:Performed By: #### 5800306, 6590654, 86437807, 3818668, 3077483, 5299323 ####[address] [address]USD (Bld) [#/Vol]4.8 E12/LNormal4.3-5.9[facility] HospitalComment on above:Performed By: #### 0322339, 4057242, 16101214, 1210531, 2601382, 0470451 ####[address] [address]KCN corrected for nucl RBC Auto (Bld) [#/Vol]14.9 E9/LHigh 4.0-11.0[facility] HospitalComment on above:Performed By: #### 9938660, 5482295, 29907257, 0738005, 4968022, 5949955 ####[facility]iver [facility] [address] [place], [place] [address]EPUMLWFISVxzhzuz By: SYSTEM SYSTEM on 13-46-3111Pfbujae [Mass/Vol]4.2 g/dLNormal3.3 - 5.0 gm/dLRemisol ChemAlk Phos61 [iU]/yHvfwmy73 - 98 Int._Unit/LRemisol McpnFRB24 [iU]/dNormal6 - 46 Int._Unit/L Remisol ChemAnion gap [Moles/Vol]12 mmol/LNormal6 - 16 mEq/LRemisol TmkaXDK22 [iU]/dNormal5 - 43 Int._Unit/LRemisol ChemBili Direct0.2 mg/dLNormal0.1 - 0.4 mg/dLRemisol ChemBili Total0.8 mg/dLNormal0.0 - 1.1 mg/dLRemisol ChemCalcium [Mass/Vol]9.3 mg/dLNormal8.9 - 11.1 mg/dLRemisol ChemChloride [Moles/Vol]106 mmol/MTfhbtq339 - 111 mmol/LRemisol ChemCO2 [Moles/Vol]25 mmol/PEnwigf30 - 31 mmol/LRemisol ChemCreatinine [Mass/Vol]0.6 mg/dLNormal0.5 - 1.3 mg/dLRemisol ChemeGFRmL/min/1.73 x0Hgbtcl>=59mL/min/1.73 v9Jhuwrob ChemGlobulin (S) [Mass/Vol]2.6 g/dLNormal1.4 - 4.0 gm/dLRemisol ChemGlucose [Mass/Vol]105 mg/dL Ikxjje38 - 199 mg/dLRemisol ChemLipase Lvl17 unit/OPkbiqg66 - 58 unit/LRemisol ChemPotassium [Moles/Vol]3.9 mmol/LNormal3.5 - 5.3 mmol/LRemisol ChemProtein [Mass/Vol]6.8 g/dLNormal6.0 - 7.8 gm/dLRemisol ChemSodium [Moles/Vol]139 mmol/L Sgecyi436 - 145 mmol/LRemisol ChemUrea nitrogen [Mass/Vol]mg/dLLow5 - 21 mg/dL Remisol ChemUrea nitrogen/Creatinine [Mass ratio]7 mg/mgLow10 - 20Remisol Chem CHEMISTRYOrdered By: Altagracia Burgos on 61-74-1676Jeaniyj/Globulin [Mass ratio] 1.6 {ratio}Normal1.1 - 2.2FC Chem SBili Indirect0.6 mg/dLNormal0.1 - 0.9 mg/dL [facility] [place] Chem SConsent for Treatmenton 95-81-5637Txjnoxv for Treatment [id number]#1.00TIFMercy Health Willard HospitalDischarge Instructionson 26-02-0193Gfqtwsnle Instructions [id number]#1.00TIFOhioHealth Dublin Methodist Hospital Clinical Summaryon [id number] Clinical Summary [place] [address] ED Clinical Summary Person Information Name: SHIRIN BURGOS Rachna/[facility] Age: 33 Years : 1990 Sex: Female Language: Sierra Leonean PCP: JANIYA RAYGOZA MD Marital Status: Single [...] 11/05/2023 14:16:12 11/05/2023 14:16:12 11/05/2023 14:16:12 ADDRESS: [facility] [phone] [facility] DOC NOTES: MEDICAL INFORMATION: Prescriptions Given: New [...] up: With: Address: When: Juli Sauceda [address] [facility], [address], [address] [phone] Business (1) In 3 days 11/08/2023 With: Address: When: JANIYA RAYGOZA [address] [place] [address] Business (1) In 3 days DIAGNOSIS: Gastritis; UTI (urinary tract infection)[facility] CenterED Note-Physicianon 03-91-8266BP Note-PhysicianBasic Information Time Seen: Bari Alicea DO [...] Sauceda In 3 days 11/08/[address], [address] [phone] Business (1) Additional Instructions: JANIYA RAYGOZA In 3 days [address] [place] [address]- Business (1) Additional Instructions: Problem List/Past Medical [...] per day. Ready to (more content not included)...[facility] HospitalComment on above:Result Comment: Electronically Signed By: Bari Alicea DO\.br\Date and Time Signed: 11/05/23 14:06ESTED Patient Education Noteon [id number] Patient Education NoteNormMercy Health St. Charles Hospital CenterED Patient Summaryon [id number] Patient Summary [place] [id number] Patient Discharge Instructions Person Information Name: SHIRIN BURGOS Age: 33 Years Arrival Date: 11/05/2023 12:49:22 Discharge Diagnosis: Gastritis; UTI (urinary tract infection) Primary Care Physician: JANIYA RAYGOZA MD Provider Information Primary Provider: Bari Alicea DO Advanced Gasket Maker:None The exam and treatment you received in the Emergency Department were for an urgent problem and are not intended as complete care. It is important that you follow up with a doctor, nurse practitioner,or physician?s practice assistant for ongoing care. If your symptoms [...] Instructions: With: Address: When: Juli Sauceda [address] [facility], [address], [address] [phone] Business (1) In 3 days 11/08/2023 With: Address: When: JANIYA RAYGOZA [address] [place] [address] Business (1) In 3 days In the event that this physician does not participate in your insurance network, please consult with your insurance company to find a nearby participating provider. Patient Education Materials: A MESSAGE TO ALL PATIENTS REGARDING OPIOIDS PRESCRIPTION OPIOIDS: WHAT YOU NEED TO KNOW Prescription opioids can be used to help relieve aslbeubx-sm-bqwqnn pain and are often prescribed following a [...] your community drug take- back program or [employer] mail-back program, or flush them down the toilet, following guidance from the Food and Drug Administration (www.fda.gov/Drugs/ResourcesForYou). ? Visit www.cdc.gov/drugoverdose to learn about the risks of opioids abuse and overdose. ? If you believe you may be struggling with addiction, tell your health care prof (more content notincluded)...[facility] HospitalHEMATOLOGY Ordered By: SYSTEM SYSTEM on 37-39-6185Rscaembgg/100 WBC (Bld)0.5 %Normal0.0 - 2.0 %[facility] HemeAutoSSBasophils/Leukocytes Auto (Bld) [Pure # fraction]0.1 E9/L Normal0.0 - 0.2 E9/LFTMC HemeAutoSSEosinophils/100 WBC (Bld)1.9 %Normal0.0 - 8.0 %[facility] HemeAutoSSEosinophils/Leukocytes Auto (Bld) [Pure # fraction]0.3 E9/L Normal0.0 - 0.5 E9/LFTMC HemeAutoSSLymphocytes/100 WBC (Bld)27.3 %Ulzaet73.0 - 50.0 %[facility] HemeAutoSSLymphocytes/Leukocytes Auto (Bld) [Pure # fraction]4.1 E9/L High1.0 - 4.0 E9/LFTMC HemeAutoSSMonocytes/100 WBC (Bld)4.6 %Normal4.0 - 14.0 % [facility] HemeAutoSSMonocytes/Leukocytes Auto (Bld) [Pure # fraction]0.7 E9/LNormal 0.2 - 1.0 E9/LFTMC HemeAutoSSNeutrophils/100 WBC (Bld)65.7 %Aagpdp36.0 - 75.0 % [facility] HemeAutoSSNeutrophils/Leukocytes Auto (Bld) [Pure # fraction]9.8 E9/LHigh 2.0 - 7.5 E9/[facility] HemeAutoSSHEMATOLOGYOrdered By: Tiffanie Faith on 11-05-2023 Erythrocyte distribution width (RBC) [Ratio]15.6 %High10.9 - 14.2 %FT HemeAutoSSHematocrit (Bld) [Volume fraction]48.2 %High34.0 - 46.0 %FT HemeAutoSSHemoglobin (Bld) [Mass/Vol]16.5 g/oSCpla71.0 - 16.0 gm/dLFT HemeAutoSSMCH (RBC) [Entitic mass]34.3 liYomy39.0 - 34.0 pgFTM HemeAutoSSMCHC (RBC) [Mass/Vol]34.3 g/zBTtgamd37.4 - 36.0 gm/dLFT HemeAutoSSMCV (RBC) [Entitic vol]100.2 vZBtgn95.0 - 100.0 fLFT HemeAutoSSPlatelet mean volume (Bld) [Entitic vol]8.1 fLNormal6.4 - 10.8 fLCURAHE[facility] [place] [facility] [place] HemeAutoSSPlatelets (Bld) [#/Vol]312.0 E9/JQxjbbk620.0 - 500.0 E9/[facility] HemeAutoSSRBC (Bld) [#/Vol]4.8 E12/LNormal4.3 - 5.9 E12/[facility] HemeAutoSSWBC corrected for nucl RBC Auto (Bld) [#/Vol]14.9 E9/LHigh4.0 - 11.0 E9/[facility] HemeAutoSSHep Func Panelon 11-05-2023 Albumin/Globulin [Mass ratio]1.6 {ratio}Normal1.1-2.2[facility] Comment on above:Performed By: #### 4875399, 7658933, 48959386, 9099499, 8804448, 7311325 ###[place] [address] [place], [place] [address]Paja Indirect0.6 mg/dLNormal0.1-0.9[facility] HospitalComment on above:Performed By: #### 5877513, 4615073, 25454226, 8460485, 9516015, 9985121 ####[facility] [address] [place], [place] [address]Cccmokb [Mass/Vol]4.2 g/dLNormal3.3-5.0[facility] HospitalComment on above:Performed By: #### 8507207, 4757076, 78980660, 5779467, 8526877, 7356037 ####[address] [place], [place] [address]Vhp Phos61 Int._Unit/VZaexhn56-66YepyjvHolmes County Joel Pomerene Memorial Hospital Comment on above:Performed By: #### 6287317, 1975423, 05776570, 4902291, 4835447, 5771756 ####[address] [place], [place] [address]JAR51 Int._Unit/LNormal6-46[facility] Comment on above:Performed By: #### 3784274, 0701340, 68305560, 1501740, 3606148, 3507929 ####[facility] [address] [place], [place] [address]ESB94 Int._Unit/LNormal5-43[facility] Comment on above:Performed By: #### 3059996, 7778721, 80031525, 7588140, 2603448, 3290172 ####[address] [place], [place] [address]Yisr Direct0.2 mg/dLNormal0.1-0.4FMartins Ferry Hospital Comment on above:Performed By: #### 4913717, 8898577, 92039696, 0154420, 2694491, 4905379 ####[facility] [address] [place], [place] [address]Kzsr Total0.8 mg/dLNormal0.0-1.1FMartins Ferry Hospital Comment on above:Performed By: #### 1255794, 6243332, 27284326, 0239414, 9191434, 6945701 ####[facility] [address] [place], [place] [address]Tbhxcysa (S) [Mass/Vol]2.6 g/dLNormal1.4-4.0[facility] HospitalComment on above:Performed By: #### 9661256, 0377385, 09813302, 0409680, 3801431, 0723729 ####[address] [address]Cvlbgfb [Mass/Vol]6.8 g/dLNormal6.0-7.8[facility] HospitalComment on above:Performed By: #### 0260112, 6220822, 40268278, 1339058, 4379497, 1661643 ####[address] [address]Rwsjye Levelon 97-37-0929Vclxng Lvl17 unit/VEgllhk73-91 [facility] HospitalComment on above:Performed By: #### 3796723, 3981645, 01183238, 5196923, 2517136, 9301354 ####[facility] By[address] [place] [address]EA With Cult Reflexon 11-05-2023 Bacteria LM Ql (Urine sed)TRACENormalTraceHolmes County Joel Pomerene Memorial HospitalComment on above:Performed By: #### 30988697, 9685753 ####[address] [address]Qxyfcqvcr Ql (U)NegativeNormal NegativeHolmes County Joel Pomerene Memorial HospitalComment on above:Performed By: #### 75982874, 0449822 ####[address] [address]Ekpigpw (U)CLEARNormalClearHolmes County Joel Pomerene Memorial HospitalComment on above: Performed By: #### 29229601, 9123596 ####[address] [address]Igexk (U)YELLOWNormalYellowHolmes County Joel Pomerene Memorial HospitalComment on above:Performed By: #### 18896731, 6746020 ####[address] [address] Epithelial cells.squamous LM.HPF (Urine sed) [#/Area]6-7Zunyao8-0JwjetgMartins Ferry HospitalComment on above:Performed By: #### 35305221, 5799568 ####[address] [address]Pmlfcvm Test strip (U) [Mass/Vol]NegativeNormalNegativeHolmes County Joel Pomerene Memorial HospitalComment on above:Performed By: #### 75439871, 8501465 ####[address] [address]Vyxqwmxgvk Ql (U)1+AbnormalNegative [facility] HospitalComment on above:Performed By: #### 65097193, 5923729 ####[address] [address] Ketones (U) [Mass/Vol]NegativeNormalNegativeHolmes County Joel Pomerene Memorial HospitalComment on above:Performed By: #### 73908311, 6899779 ####[address] [address]Spoiwky.plasma/Silsbee.RBC (Bld) [Mass ratio]2-95Tlwwxi0-0OykvvlMartins Ferry HospitalComment on above:Performed By: #### 09521920, 2450463 ####[address] [address]Dfchc Ql (Urine sed)TRACENormalHolmes County Joel Pomerene Memorial HospitalComment on above:Performed By: #### 52007359, 2517906 ####[address] [address]Rsnyoye Ql (U)Negative NormalNegPremier Health Miami Valley HospitalComment on above:Performed By: #### 52451229, 8608352 ####[address] [address]cV (U)7.0 [pH]Invalid Interpretation Code5.0-9.0[facility] HospitalComment on above:Performed By: #### 26858792, 8472212 ####[place]iver [address] [address]Frsicpf (U) [Mass/Vol]NegativeNormalNegativeHolmes County Joel Pomerene Memorial HospitalComment on above: Performed By: #### 11381049, 8068398 ####River [address] [address]Mnuacdjk gravity (U) [Rel density] <=1.005Invalid Interpretation Code1.005-1.030[facility] HospitalComment on above:Performed By: #### 24416036, 5343397 ####River [address] [address]Leha of Urine collection methodClean CatchNoSouthern Ohio Medical CenterComment on above:Performed By: #### 12015571, 6615833 ####Perico [address] [address]Fzgbnazfbkom Qn (U)0.2 {Ta'U}/dLNormal0.0-1.0[facility] HospitalComment on above:Performed By: #### 43975315, 6145937 ####River [address] [address]MXM Auto Ql (U)3+AbnormalNegativeHolmes County Joel Pomerene Memorial HospitalComment on above: Performed By: #### 29016404, 8982038 ####[address] [address]ZFN LM.HPF (Urine sed) [#/Area]/[HPF] Abnormal0-5Fisher [facility] HospitalComment on above:Performed By: #### 17470323, 4410702 ####[address]iver [address] [address]YRBYEUZEYCJpmfdep By: Aimee Barrett on 53-26-3570Cetorxno LM Ql (Urine sed)Trace /HPFNormalTrace/HPFCURAHE[facility] [place] [facility] [place] UA Auto SSBilirubin Ql (U) Negative (11/05/23 1:09 PM)NormalNegativeCURAHEALTH [facility] [place] [facility] [place] UA Auto SSClarity (U)Clear (11/05/23 1:09 PM)NormalClearFTM UA Auto SSColor (U)Yellow (11/05/23 1:09 PM)NormalYellowCURAHEALTH H[facility] [place] [facility] [place] UA Auto SSEpithelial cells.squamous LM.HPF (Urine sed) [#/Area]0-2 /HPFNormal0-2/HPFCURAHEALTH [facility] [place] [facility] [place] UA Auto SSGlucose Test strip (U) [Mass/Vol]Negative (11/05/23 1:09 PM)NormalNegativeCURAHEALTH [facility] [place] [facility] [place] UA Auto SSHemoglobin Ql (U)1+ *ABN* (11/05/23 1:09 PM)Invalid Interpretation CodeNegativeCURAHEALTH [facility] [place] [facility] [place] UA Auto SSKetones (U) [Mass/Vol]Negative (11/05/23 1:09 PM)NormalNegativeCURAHEALTH [facility] [place] [facility] [place] UA Auto SSLithium.plasma/Silsbee.RBC (Bld) [Mass ratio]4-20 /HPFNormal0-3/HPFCURAHEALTH [facility] [place] [facility] [place] UA Auto SSMucus Ql (Urine sed)Trace (11/05/23 1:09 PM)NormalCURAHEALTH [facility] [place] [facility] [place] UA Auto SSNitrite Ql (U)Negative (11/05/23 1:09 PM)NormalNegativeCURAHEALTH [facility] [place] [facility] [place] UA Auto SSpH (U)7.0 *NA* (11/05/23 1:09 PM)Invalid Interpretation Code5.0 - 9.0[facility] [place] UA Auto SSProtein (U) [Mass/Vol]Negative (11/05/23 1:09 PM)NormalNegativeCURAHEALTH [facility] [place] [facility] [place] UA Auto SSSpecific gravity (U) [Rel density]<=1.005 *NA* (11/05/23 1:09 PM)Invalid Interpretation Code1.005 - 1.030[facility] [place] UA Auto SSUA Spec DescClean Catch (11/05/23 1:09 PM)NormalCURAHEALTH [facility] [place] [facility] [place] UA Auto SSUrobilinogen Qn (U)0.3140780 {Ta'U}/dLNormal0.0 - 1.0 EU/dLCURAHEALTH [facility] [place] [facility] [place] UA Auto SSWBC Auto Ql (U)3+ *ABN* (11/05/23 1:09 PM)Invalid Interpretation CodeNegativeCURAHEALTH [facility] [place] [facility] [place] UA Auto SSWBC LM.HPF (Urine sed) [#/Area]/[HPF]Invalid Interpretation Code0-5/HPFCURAHEALTH [facility] [place] [facility] [place] UA Auto SSeGFR on 57-68-2508JLC/1.73 sq M.predicted among non-blacks MDRD (S/P/Bld) [Vol rate/Area]mL/min/{1.73_m2}Normal>=59[facility]er [facility] HospitalComment on above: Order Comment: Order added by Discern Expert.Performed By: #### 9287101, 2714835, 61643052, 1781586, 1761948, 6315943 ####[facility] [address] [place], [place] [address]YMF with Auto Differentialon 52-56-7952Copyscqeg (Bld) [#/Vol][facility] HEALTHBasophils/100 WBC (Bld) 0 - 2 %[facility] HEALTHEosinophils (Bld) [#/Vol]0.16 10*3/uLBON SECOURS MERCY HEALTHEosinophils/100 WBC (Bld)2 %0 - 5 %[facility] Erythrocyte distribution width (RBC) [Ratio]14.0 %12.1 - 15.2 %[facility] HEALTHHematocrit (Bld) [Volume fraction]49.5 %High36 - 46 %[facility] HEALTHHemoglobin (Bld) [Mass/Vol]16.8 g/yBEhan74.0 - 16.0 g/dLBON SECOURS MERCY HEALTHImmature granulocytes [...] g/dLBON SECOURS MERCY HEALTHMCV (RBC) [Entitic vol]100.2 yHVlyr58 - 100 fLBON SECOURS MERCY HEALTHMonocytes/100 WBC (Bld)3 %Low4 - 8 %[facility] HEALTHMonocytes/100 WBC (Bld)0.25 %[facility] HEALTHMorphology Venancio (Bld) [Interp]Manual Differential Performed B[facility] SECSAVANA REYNOSOY HEALTHNeutrophils/100 WBC (Bld)67 %47 - 75 %[facility] HEALTHPlatelets (Bld) [#/Vol]255 10*3/uLBON SECOURS MERCY HEALTHRBC (Bld) [#/Vol]4.94 10*6/uL4.0 - 5.2 m/uLBON [facility]SAVANA [facility] HEALTHSegmented neutrophils/100 WBC (Bld)5.49 %[facility]ITAL[facility] HEALTHWBC other (Bld) [#/Vol] 8.2[facility] HEALTHB[facility]ITALY HEALTHComprehensive Metabolic Panel on [id number] [Mass/Vol]4.0 g/dL3.5 - 5.2 g/dLBON SECOURS MERCY HEALTHALP [Catalytic activity/Vol]80 U/L35 - 104 U/LBON [facility] HEALTHALT [Catalytic activity/Vol]18 U/L5 - 33 U/LB[facility] HEALTHAnion gap [Moles/Vol]10 mmol/L9 - 17 mmol/LB[facility] HEALTHAST [Catalytic activity/Vol]21 U/LNINF - 32 U/LB[facility] HEALTHBilirubin [Mass/Vol]0.7 mg/dL0.3 - 1.2 mg/dLB[facility] HEALTHCalcium [Mass/Vol]9.3 mg/dL8.6 - 10.4 mg/dLBON [facility]RS MERCY HEALTHChloride [Moles/Vol]104 mmol/L98 - 107 mmol/L [facility] HEALTHCO2 [Moles/Vol]23 mmol/L20 - 31 mmol/LBON [facility] HEALTHCreatinine [Mass/Vol]0.6 mg/dL0.5 - 0.9 mg/dLB[facility] GFR/1.73 sq M.predicted MDRD (S/P/Bld) [Vol rate/Area]- PINFBON SECOURS KelDocY HEALTHComment on above: These results are not intended [...] secretion. Glucose [Mass/Vol]79 mg/dL70 - 99 mg/dLBON [facility] MasCupon [facility] HOSPITALInterpretation and review of laboratory resultsAbnormalBON [facility] MasCupon [facility]OSPITALPotassium [Moles/Vol]3.7 mmol/L3.7 - 5.3 mmol/LBON [facility] CENTERMedical Device [employer] HEALTHProtein [Mass/Vol] 6.9 g/dL6.4 - 8.3 g/dLBON [facility] MasCupon [facility] HOSPITALSodium [Moles/Vol]137 mmol/L135 - 144 mmol/LBON [facility]LLNESS CENTERPolwire [facility]ILTON HOSPITALUrea nitrogen [Mass/Vol]4 mg/dLLow6 - 20 mg/dL [facility] MasCupon [facility] HOSPITALUrea nitrogen/Creatinine [Mass ratio]7 mg/mgLow9 - 20BON [facility] CENTERMedical Device Innovations [facility]ILTON HOSPITALLipaseon 24-96-9098Itwkzb [Catalytic activity/Vol]28 U/L13 - 60 U/LBON [facility] ULTRA TestingNo Panel Informationon 82-30-8213YUM [facility] MasCupon [facility]IL[facility] HOSPITALXR CHEST (2 VW)on 08-11-2023 No acute cardiopulmonary [...] not seen. IMPRESSION: No acute cardiopulmonary disease [facility] SYSTEMRadiology Study observation (narrative)[facility] MasCupon [facility] HOSPITALXR CHEST (2 VW)Ordered By: García Garcia on 15-71-8272RMI Poll Everywhere Work Phone: Established Visit (Gastroenterology)on 07-15-2023 Established Visit [...] or Bone Graft Simulator, Implanted Breast Tissue Continuous Improvement Intern, Glucose Monitor, or Neulasta Device? : No [...] spasm; CHEIKH = N; Verified Transmission to [facility] #16; Last Updated By: Lit Building Directory; 07/15/2023 2:11:41 PM Sphincter of Oddi spasm Start: Dicyclomine HCl - 20 MG Oral Tablet; TAKE 1 TABLET BY MOUTH EVERY 6 HOURS NEEDED Rx By: Jing Troncoso; Dispense: 30 Days ; #:40 Tablet; Refill: 2;For: Sphincter of Oddi spasm; CHEIKH =N; Verified Transmission to [facility] #16; Last Updated By: Lit Building Directory; :11:41 PM Provider Impressions Treat for presumptive bile [...] 2:52:04 PM Current Meds Medication NameInstruction Creon [id number] UNIT Oral Capsule Delayed Release ParticlesTAKE 1 CAPSULE 3 times daily Vitals Vital Signs Recorded: 46Hfb5362 01:32PM Height5 ft 4 in Kazgmf197 lb 2.62 oz BMI Mtksttkspp35.09 kg/m2 BSA Calculated1.71 Physical Exam Constitutional General appearance: In no acute distress . Eyes (more content not included)...Normal TouchworksVITAMIN D 1,25-DIHYDROXYon 79-87-7130LHPDNYU D 1,25-TOLNPWQFY40.3 pg/tCJymtgi76.9-79.3[facility] CenterComment on above:Result Comment: INTERPRETIVE INFORMATION: Vitamin D, 1,25-Dihydroxy This test is primarily indicated during patient evaluation for hypercalcemia and renal failure. A normal result does not rule out Vitamin D deficiency. The recommended test for diagnosing Vitamin D deficiency is Vitamin D 25-hydroxy. Performed By: [facility] [address] [place] [address] Pharmacognosist: Ector King MD, PhDPerformed By: #### VTDDI #### [facility] [address] [place], [place] [address]ZWO AND DIFFERENTIALon 02-01-2023% AUTOMATED IMMATURE GRAN0.3 % Normal0.0 - 0.9[facility] CenterComment on above:Result Comment: Immature Granulocyte Count (IG) includes promyelocytes, myelocytes and metamyelocytes but does not include bands. Percent differential counts (%) should be interpreted in the context of the absolute cell counts (cells/L).Performed By: #### CBCDF #### [address] [address]Hyrntgukc (Bld) [#/Vol]0.04 10*3/uLNormal0.00 - 0.10[facility] CenterComment on above:Performed By: #### CBCDF #### [address] [address]Hzwehyrav/100 WBC (Bld)0.4 %Normal0.0 - 2.0[facility] CenterComment on above:Performed By: #### CBCDF #### [address] [address]Fnrqmkpbzzk (Bld) [#/Vol]0.17 10*3/uLNormal0.00 - 0.70[facility] CenterComment on above:Performed By: #### CBCDF #### [address] [address]Eoanvabgqex/100 WBC (Bld)1.8 %Normal0.0 - 6.0[facility] CenterComment on above:Performed By: #### CBCDF #### [address] [address]Nveoesescbr distribution width (RBC) [Ratio]13.9 %Pmnzeu58.5 - 14.5[facility] CenterComment on above:Performed By: #### CBCDF #### [address] [address]Nqpanwmtgz (Bld) [Volume fraction]43.8 %Bxwfzc79.0 - 46.0[facility] CenterComment on above:Performed By: #### CBCDF #### [address] [address]Lfateaxoem (Bld) [Mass/Vol]14.5 g/hLRveyzy43.0 - 16.0[facility] CenterComment on above:Performed By: #### CBCDF #### [address], [place] [address]Ffdoizrnmya (Bld) [#/Vol]3.24 10*3/uLNormal1.20 - 4.80[facility] CenterComment on above:Performed By: #### CBCDF #### [address] [address]Tthdogbhyia/100 WBC (Bld)35.2 %Ntfxll16.0 - 44.0[facility] CenterComment on above:Performed By: #### CBCDF #### [address] [address]BRVV (RBC) [Mass/Vol]33.1 g/wIPyipyb34.0 - 36.0[facility] CenterComment on above:Performed By: #### CBCDF #### [address] [address]TLT (RBC) [Entitic vol]101 bDYisc77 - 100[facility] CenterComment on above:Performed By: #### CBCDF #### [address] [address]Cqqvmefdh (Bld) [#/Vol]0.47 10*3/uLNormal0.10 - 1.00[facility] CenterComment on above:Performed By: #### CBCDF #### [address] [address]Tevswxlxw/100 WBC (Bld)5.1 %Normal2.0 - 10.0[facility] CenterComment on above:Performed By: #### CBCDF #### [address] [address]Hmwjpuqvzql (Bld) [#/Vol]5.26 10*3/uLNormal1.20 - 7.70[facility] CenterComment on above:Result Comment: Percent differential counts (%) should be interpreted in the context of the absolute cell counts (cells/L).Performed By: #### CBCDF #### [address] [address]Kcgbesxdadk/100 WBC (Bld)57.2 %Gkydjr62.0 - 80.0[facility] CenterComment on above:Performed By: #### CBCDF #### [address] [address]Bmfrvqbbg (Bld) [#/Vol]358 10*3/pNYhuxqk691 - 450[facility] CenterComment on above:Performed By: #### CBCDF #### [address] [address]ECV7.34 x10E12/LNormal4.00 - 5.20[facility] Comment on above:Performed By: #### CBCDF #### [address] [address]SGC (Bld) [#/Vol]9.2 10*3/uLNormal4.4 - 11.3[facility] CenterComment on above:Performed By: #### CBCDF #### [address] [address]LTRBZA DISEASE SEROLOGY PANELon 60-87-3821SMMZTGCJTH GLIADIN PEPTIDE IGG<6Vrbnys8 - 14[facility] CenterComment on above:Result Comment: False negative Deamidated Gliadin Peptide Antibody, IgG results can occur in patients already adhering to a gluten-free diet. Tissue Transglutaminase Antibody, IgA is the preferred test for screening patients with suspected Celiac Disease.Performed By: #### CELP1 #### [facility] [address] [place], [place] [address]MPN AB,IGG<4Sznqwb3 - 14[facility] CenterComment on above:Result Comment: False negative Tissue Transglutaminase Antibody, IgG results can occur in patients already adhering to a gluten-free diet. Tissue Transglutaminase Antibody, IgA is the preferred test for screening patients with suspected Celiac Disease.Performed By: #### CELP1 #### [facility] [address] [place], [place] [address]REOGUVQPIW GLIADIN PEPTIDE IGA9 U/mLNormal0 - 14[facility] CenterComment on above:Result Comment: False negative Deamidated Gliadin Peptide Antibody, IgA results can occur in patients already adhering to a gluten-free diet or patients with IgA deficiency. Tissue Transglutaminase Antibody, IgA is the preferred test for screening patients with suspected Celiac Disease.Performed By: #### CELP1 #### [facility] [address] [place], [place] [address]ZOZ AB,IGA<6Gjckob8 - 14[facility] CenterComment on above:Result Comment: Celiac disease is unlikely. False negative Tissue Transglutaminase Antibody, IgA results can occur in approximately 10% of patients with celiac disease, patients already adhering to a gluten-free diet, or patients with IgA deficiency.Performed By: #### CELP1 #### [facility] [address] [place], [place] [address]QEBSJMYRBASXZ PANELon 79-60-9925Pjdmddg [Mass/Vol]4.3 g/dL Normal3.4 - 5.0[facility] CenterComment on above:Performed By: #### CMP #### [address] [address]QOM [Catalytic activity/Vol]57 U/EDhnhzi44 - 110[facility] CenterComment on above:Performed By: #### CMP #### [address] [address]IGR [Catalytic activity/Vol]12 U/LNormal7 - 45[facility] CenterComment on above:Result Comment: Patients treated with Sulfasalazine may generate falsely decreased results for ALT.Performed By: #### CMP #### [address] [address]Zlufr gap [Moles/Vol]11 mmol/GPgqjcc35 - 20[facility] CenterComment on above:Performed By: #### CMP #### [address] [address]RSP [Catalytic activity/Vol]13 U/LNormal9 - 39[facility] CenterComment on above:Performed By: #### CMP #### [address] [address]Jxklklbvd [Mass/Vol]0.6 mg/dLNormal0.0 - 1.2[facility] CenterComment on above:Performed By: #### CMP #### [address] [address]Ufgbnvq [Mass/Vol]9.2 mg/dLNormal8.6 - 10.3[facility] CenterComment on above:Performed By: #### CMP #### [address] [address]Zfkeakod [Moles/Vol]106 mmol/LMwzomh44 - 107[facility] CenterComment on above:Performed By: #### CMP #### [address] [address]Csjqdcblsq [Mass/Vol]0.64 mg/dLNormal0.50 - 1.05[facility] CenterComment on above:Performed By: #### CMP #### [address] [address]sBDF FEMALE>90Normal>90[facility] CenterComment on above:Result Comment: CALCULATIONS OF ESTIMATED GFR ARE PERFORMED USING THE 2020 CKD-EPI STUDY REFIT EQUATION WITHOUT THE RACE VARIABLE FOR THE IDMS-TRACEABLE CREATININE METHODS. https://jasn.asnjournals.org/content/early//ASN.3332206729Pjhlemgbm By: #### CMP #### [address] [address]Bojjtsy [Mass/Vol]74 mg/lCVcczsb98 - 99[facility] CenterComment on above:Performed By: #### CMP #### [address] [address]TCA6 (Bld) [Moles/Vol]26 mmol/HLimtem44 - 32[facility] CenterComment on above:Performed By: #### CMP #### [address] [address]Fohvtcmlq [Moles/Vol]3.6 mmol/LNormal3.5 - 5.3[facility] CenterComment on above:Performed By: #### CMP #### [address] [address]Qvsuyox [Mass/Vol]6.6 g/dLNormal6.4 - 8.2[facility] CenterComment on above:Performed By: #### CMP #### [address] [address]Hhuibm [Moles/Vol]139 mmol/VJaybba024 - 145[facility] CenterComment on above:Performed By: #### CMP #### [address] [address]Hxem nitrogen [Mass/Vol]7 mg/dLNormal6 - 23[facility] CenterComment on above:Performed By: #### CMP #### [address] [address]VR ABDOMEN AND PELVIS W IV CONTRASTon 75-47-0872BJ ABDOMEN AND PELVIS W IV CONTRASTMRN: [id number] Patient Name: SHIRIN BURGOS STUDY: CT ABDOMEN AND PELVIS W IV CONTRAST; 02/01/2023 11:47 am INDICATION: Pancreatitis K86.1: Chronic pancreatitis. COMPARISON: None. ACCESSION NUMBER(S): [id number] ORDERING CLINICIAN: JING TRONCOSO TECHNIQUE: CT of [...] Prior appendectomy. Electronically signed by: DUSTIN EDGE MDMary [facility] Abdomen and Pelvis with IV Contraston [id number] Abdomen and Pelvis W contrast IVPlease click on the link to view the study imagesNoJeanette Ville [address] Work Phone: CT Abdomen and Pelvis W contrast IVNoJeanette Ville [address] Work Phone: Complete Blood Count + Differentialon 02-01-2023 Basophils/100 WBC (Bld)0.4 %0.0 - 2.0[place] [address] Work Phone: Erythrocyte distribution width (RBC) [Ratio]13.9 %See [place] [address] Work Phone: Comment on above:Reference Range: 11.5 - 14.5 Hematocrit (Bld) [Volume fraction]43.8 %See [place] [address] Work Phone: Comment on above:Reference Range: 36.0 - 46.0 Hemoglobin (Bld) [Mass/Vol]14.5 g/dLSee [place] [address] Work Phone: Comment on above:Reference Range: 12.0 - 16.0 Lymphocytes/100 WBC (Bld)35.2 %See [place] [address] Work Phone: Comment on above:Reference Range: 13.0 - 44.0MCHC (RBC) [Mass/Vol]33.1 g/dLSee [place] [address] Work Phone: Comment on above:Reference Range: 32.0 - 36.0MCV (RBC) [Entitic vol]101 fLabove high eswqpebto38 - 100[place] [address] Work Phone: Monocytes/100 WBC (Bld)5.1 %2.0 - 10.0[place] [address] Work Phone: Neutrophils/100 WBC (Bld)57.2 %See [place] [address] Work Phone: Comment on above:Reference Range: 40.0 - 80.0Platelets (Bld) [#/Vol]358 10*3/uL150 - 450[place] [address] Work Phone: RBC (Bld) [#/Vol]4.34 {x10E12/L}See [place] [address] Work Phone: Comment on above:Reference Range: 4.00 - 5.20WBC (Bld) [#/Vol]9.2 10*3/uL4.4 - 11.3MJeremy [place] [address] Work Phone: Complete Blood Count + Differential0.04 {x10E9/L}See [place] [address] Work Phone: Comment on above:Reference Range: 0.00 - 0.10Complete Blood Count + Differential0.17 {x10E9/L}See [place] [address] Work Phone: Comment on above:Reference Range: 0.00 - 0.70Complete Blood Count + Differential0.47 {x10E9/L}See [place] [address] Work Phone: Comment on above:Reference Range: 0.10 - 1.00Complete Blood Count + Differential3.24 {x10E9/L}See [place] [address] Work Phone: Comment on above:Reference Range: 1.20 - 4.80Complete Blood Count + Differential5.26 {x10E9/L}See [place] [address] Work Phone: Comment on above:Reference Range: 1.20 - 7.70 Percent differential counts (%) should be interpreted in the context of the absolute cell counts (cells/L).Complete Blood Count + Differential1.8 %0.0 - 6.0-[place] [address] Work Phone: Complete Blood Count + Differential0.3 %0.0 - 0.9[place] [address] Work Phone: Comment on above:Immature Granulocyte Count (IG) includes promyelocytes, myelocytes and metamyelocytes but does not include bands. Percent differential counts (%) should be interpreted in the context of the absolute cell counts (cells/L).IGG SUBCLASS 4on 75-52-0919QGL SUBCLASS 4132 mg/dLNormal3 - 200[facility] CenterComment on above:Performed By: #### IGGG4 #### [facility] [address] [place], [place] [address]Wqdsmgiqkc - Chemistry and Chemistry - challengeon 02-01-2023 Albumin BCP dye [Mass/Vol]4.3 g/dL3.4 - 5.0-[place] [address] Work Phone: ALP [Catalytic activity/Vol]57 U/L33 - 110-[place] [address] Work Phone: ALT With P-5'-P [Catalytic activity/Vol]12 U/L7 - 45 [place] [address] Work Phone: Comment on above:Patients treated with Sulfasalazine may generate falsely decreased results for ALT.Anion gap [Moles/Vol]11 mmol/L10 - 20-[place] [address] Work Phone: AST With P-5'-P [Catalytic activity/Vol]13 U/L9 - 39 [place] [address] Work Phone: Bilirubin [Mass/Vol]0.6 mg/dL0.0 - 1.2MP-[place] [address] Work Phone: Calcium [Mass/Vol]9.2 mg/dL8.6 - 10.3MP-[place] [address] Work Phone: Chloride [Moles/Vol]106 mmol/L98 - 107MP-[place] [address] Work Phone: CO2 [Moles/Vol]26 mmol/L21 - 32-[place] [address] Work Phone: Creatinine [Mass/Vol]0.64 mg/dLSee BelowJamie Ville [address] Work Phone: Comment on above:Reference Range: 0.50 - 1.05Glucose [Mass/Vol]74 mg/dL74 - 99MP-[place] [address] Work Phone: Potassium [Moles/Vol]3.6 mmol/L3.5 - 5.3MP-[place] [address] Work Phone: Protein [Mass/Vol]6.6 g/dL6.4 - 8.2MP-[place] [address] Work Phone: Sodium [Moles/Vol]139 mmol/L136 - 145[place] [address] Work Phone: Urea nitrogen [Mass/Vol]7 mg/dL6 - 23-[place] [address] Work Phone: Laboratory - Serology - non-microon 76-32-0715Amnebvo peptide IgA IA Qn (S)9 U/mL0 - 14-[place] [address] Work Phone: Comment on above:False negative Deamidated Gliadin Peptide Antibody, IgA results can occur in patients already adhering to a gluten-free diet or patients with IgA deficiency. Tissue Transglutaminase Antibody, IgA is the preferred test for screening patients with suspected Celiac Disease.tTG IgA IA Qn (S)<10 - 14MP-[place] [address] Work Phone: Comment on above:Celiac disease is unlikely. False negative Tissue Transglutaminase Antibody, IgA results can occur in approximately 10% of patients with celiac disease, patients already adhering to a gluten-free diet, or patients with IgA deficiency.tTG IgG IA Qn (S)<10 - [place] [address] Work Phone: Comment on above:False negative Tissue Transglutaminase Antibody, IgG results can occur in patients already adheringto a gluten-free diet. Tissue Transglutaminase Antibody, IgA is the preferred test for screening patients with suspected Celiac Disease.No Panel Informationon 02-01-2023>90>90[place] [address] Work Phone: Comment on above:CALCULATIONS OF ESTIMATED GFR ARE PERFORMED USING THE 2020 CKD-EPI STUDY REFIT EQUATION WITHOUT THERACE VARIABLE FOR THE IDMS-TRACEABLE CREATININE METHODS.https://jasn.asnjournals.org/content//ASN.5369326102<10 - 14[place] [address] Work Phone: Comment on above:False negative Deamidated Gliadin Peptide Antibody, IgG results can occur in patients already adhering to a gluten-free diet. Tissue Transglutaminase Antibody, IgA is the preferred test for screeningpatients with suspected Celiac Disease.132 mg/dL3 - 200[place] [address] Work Phone: TSHon 84-90-9577BOW Qn0.60 m[IU]/LNormal0.44 - 3.98[facility] CenterComment on above:Result Comment: TSH testing is performed using different testing methodology at [facility] than at other [facility]. Direct result comparisons should only be made within the same method.Performed By: #### TSH2 #### [facility] [address] [place], [place] [address]GGL - Thyroid Stimulating Hormone, Serumon 86-08-5686AUQ Qn0.60 m[IU]/LSee BelowJamie Ville [address] Work Phone: Comment on above:Reference Range: 0.44 - 3.98 TSH testing is performed using different testing methodology at [facility] than at other system hospitals. Direct result comparisons should only be made within the same method.VITAMIN B12on 90-11-2260Hebfkcvyw (Vitamin B12) [Mass/Vol]63 pg/cEBti628 - 911[facility] CenterComment on above: Performed By: #### VTB12 #### [facility] [address] [place], [place] [address]Etxgxik B12, Serumon 43-07-9692Yqcugbgmj (Vitamin B12) [Mass/Vol]63 pg/mLbelow low zsuvorfub828 - 911MP-[facility] [address] Work Phone: [phone]-C 1,25-Dihydroxy, Levelon 31,25- dihydroxyvitamin D3 [Mass/Vol]64.3 pg/mL19.9-79.3MP-[facility] 120 Work Phone: Comment on above:INTERPRETIVE INFORMATION: Vitamin D, 1,25-DihydroxyThis test is primarily indicated during patient evaluation for hypercalcemia and renal failure. A normal result does not rule out Vitamin D deficiency. The recommended test for diagnosing Vitamin D deficiency is Vitamin D 25-hydroxy.Performed By: [facility] [place] [address]Ofpypbhzuy Director: Ector King MD, PhDCholesterol [Mass/volume] in Serum or PlasmaOrdered By: Jan Carter on 14-83-4277Azbqvaubwpc [Mass/Vol]128 mg/oO178-243LtbpdkwbmRiverview Health InstituteComment on above:Chol less than 200 mg/dl low riskChol 201-239 mg/dl borderline riskChol 240 mg/dl and greater high riskCholesterol in LDL Calc [Mass/Vol]Ordered By: Jan Carter on 60-15-3313Nmkqtaxmrio in LDL [Mass/Vol]88 mg/dL0-100R[facility] InstituteComment on above:LDL ATP III CLASSIFICATIONLDL less than 100 mg/dL OptimalLDL 100-129 mg/dL Near or above igxbzmvWMH340-441 mg/dL Borderline highLDL 160-189 mg/dL HighLDL greater than 189 mg/dL Very high Cholesterol in VLDL Calc [Mass/Vol]Ordered By: Jan aCrter on 99-15-6738Foxwdfajmyp in VLDL [Mass/Vol]14 mg/dLRiverview Health InstituteLipid Panelon 56-17-3350Amqvtwxctpg [Mass/Vol]128 mg/xNEwn122-744VhabwchidRiverview Health InstituteComment on above:Result Comment: Chol less than 200 mg/dl low risk Chol 201-239 mg/dl borderline risk Chol 240 mg/dl and greater high riskPerformed By: #### [id number], TSH3 wRFLX, LIPID #### [facility] [address] [place] [address] USACholesterol in HDL [Mass/Vol]26 mg/uIFki82-57VxbjhidzeRiverview Health InstituteComment on above:Result Comment: HDL CHOL ATP-III CLASSIFICATION Cardiovascular Risk HDL > or equal to 60 mg/dL LOW HDL < 40 mg/dL HIGHPerformed By: #### [id number], TSH3 wRFLX, LIPID #### [facility] [address] [place] [address] USACholesterol.total/Cholesterol in HDL [Mass ratio]4.9 {ratio}Normal<5.0R[facility] Health InstituteComment on above:Performed By: #### [id number], TSH3 wRFLX, LIPID #### [facility] [address] [place] [address] USALDL Cholesterol,Rvsybdexwl57 mg/dLNormal0-100R[facility] InstituteComment on above:Result Comment: LDL ATP III CLASSIFICATION LDL less than 100 mg/dL Optimal LDL 100-129 mg/dL Near or above optimal LDL 130-159 mg/dL Borderline high LDL 160-189 mg/dL High LDL greater than 189 mg/dL Very highPerformed By: #### [id number], TSH3 wRFLX, LIPID #### [facility] [address] [place] [address] USATriglyceride w/Jcdmke51 mg/qLYlpwot94-878CdnqskcgsRiverview Health InstituteComment on above:Result Comment: TRIG ATP III CLASSIFICATION TRIG less than 150 mg/dL Normal TRIG 150-199 mg/dL Borderline high TRIG 200-500 mg/dL High TRIG greater than 500 mg/dL Very high Standard traceable to the Center for Disease Conrtrol and Prevention (CDC) test method.Performed By: #### [id number], TSH3 wRFLX, LIPID #### [facility] [address] [place] [address] USAVLDL VMKCFGBAPPG15 mg/dLNormalRiverview Health InstituteComment on above:Performed By: #### [id number], TSH3 wRFLX, LIPID #### [facility] [address] [place] [address] USANo Panel InformationOrdered By: Jan Carter on 25-07-366191873533-Epngcvj Vitamin D Total16.8 ng/xF17-889IvzbfjwunRiverview Health InstituteComment on above:VITAMIN D STATUS 25(OH)VITAMIN D RANGE (ng/mL) Deficient <20 Insufficient 20 to <09Jpkehxeqco42 to 100Reference: Bishnu MF,Jolene DUDLEY, Delphine LOGAN, et al. Evaluation,treatment, and prevention of vitamin D deficiency; an Endocrine Society clinical practice guideline. JCEM. 2010; 96 (7):1911-30.Serum or plasma high density lipoprotein (HDL) cholesterol measurementOrdered By: Jan Carter on 05-35-7665Zauzfiqkeaa in HDL [Mass/Vol]26 mg/bC57-98WiqcfzggiRiverview Health InstituteComment on above:HDL CHOL ATP-III CLASSIFICATION Cardiovascular RiskHDL > or equal to 60 mg/dL LOWHDL < 40 mg/dL HIGHSerum or plasma total cholesterol/high density lipoprotein (HDL) cholesterol mass ratOrdered By: Jan Carter on 01-09-2023 Cholesterol.total/Cholesterol in HDL [Mass ratio]4.9 {ratio}<5.0Riverview Health InstituteTS DL <= 0.005 mIU/L QnOrdered By: Jan Carter on 03-08-0255NBM Qn0.52 m[IU]/L0.45-5.33R[facility]view Health InstituteThyroid Stim Hormone w/Rflxon 36-54-5984Mkjstfs Stim Hormone w/Rflx0.52 u[iU]/mLNormal 0.45-5.33R[facility] InstituteComment on above:Performed By: #### [id number], TSH3 wRFLX, LIPID #### [facility] [address] [place] [address] USATriglyceride [Mass/volume] in Serum or PlasmaOrdered By: Jan Carter on 54-16-2054Foclukjzesfg [Mass/Vol]72 mg/dI11-886 [facility] InstituteComment on above:TRIG ATP III CLASSIFICATIONTRIG less than 150 mg/dL NormalTRIG 150-199 mg/dL Borderline highTRIG 200-500 mg/dL High TRIG greater than 500 mg/dL Very highStandard traceable to the Center for Disease Conrtrol and Prevention (CDC) test method. Vitamin D 25 Hydroxy Totalon 22-73-0384Suewhus D 25 Hydroxy Total16.8 ng/mLLow 30-100R[facility] InstituteComment on above:Result Comment: VITAMIN D STATUS 25(OH)VITAMIN D RANGE (ng/mL) Deficient <20 Insufficient 20 to <30 Sufficient 30 to 100 Reference: Bishnu MF,Jolene NC, Delphine LOGAN, et al. Evaluation,treatment, and prevention of vitamin D deficiency; an Endocrine Society clinical practice guideline. JCEM. 2010; 96(7):1911-30. PERFORMED BY: [facility] [address] [place] [address] PATHOLOGIST EPIC AMBULATORY ANALYST UNA CUENCA M.D.Performed By: #### [id number], TSH3 wRFLX, LIPID #### [facility] [address] [place] [address] USABasophils Auto (Bld) [#/Vol]Ordered By: Jan Carter on 17-61-1413Ybtffoygl (Bld) [#/Vol]0.1 10*3/uL0.0-0.2FOhio State East HospitalBasophils/100 WBC Auto (Bld)Ordered By: Jan Carter on 40-71-4487Aowkudevp/100 WBC (Bld)0.8 %.R[facility] Health InstituteBody fluid albumin measurement (mass/volume)Ordered By: Jan Carter on 66-57-6185Kfysspu (Body fld) [Mass/Vol]3.3 g/dL3.2-5.5FOhio State East HospitalCHEMISTRYOrdered By: SYSTEM SYSTEM on 23-82-4918Bmgnuopnd [Moles/Vol]3.9 mmol/LNormal3.5 - 5.3 mmol/LFTMC RemisolComplete Blood Count Auto Diffon 03-13-1643Aacpscyav (Bld) [#/Vol]0.1 10*3/uLNormal0.0-0.2FOhio State East HospitalComment on above:Result Comment: PERFORMED BY: [place] [address] PATHOLOGIST EPIC AMBULATORY ANALYST UNA CUENCA M.D.Performed By: #### CMP, CBC #### [place] [address] USABasophils/100 WBC (Bld)0.8 %Normal.[facility] InstituteComment on above:Performed By: #### CMP, CBC #### [place] [address] USAEosinophils (Bld) [#/Vol]0.2 10*3/uLNormal0.0-0.45 [facility] InstituteComment on above:Performed By: #### CMP, CBC #### [place] [address] USAEosinophils/100 WBC (Bld)1.9 %Normal.[facility] InstituteComment on above:Performed By: #### CMP, CBC #### [place] [address] USAErythrocyte distribution width (RBC) [Ratio]12.4 %Normal 11.9-15.3FOhio State East HospitalComment on above:Performed By: #### CMP, CBC #### [place] [address] USAHematocrit (Bld) [Volume fraction]39.0 %Kidlga12.0-46.4 [facility] InstituteComment on above:Performed By: #### CMP, CBC #### [place] [address] USAHemoglobin (Bld) [Mass/Vol]13.1 g/yYImlsnk08.8-15.4 [facility] InstituteComment on above:Performed By: #### CMP, CBC #### [facility] [address] [place] [address] USALymphocytes (Bld) [#/Vol]4.0 10*3/uLNormal1.00-4.8 [facility] InstituteComment on above:Performed By: #### CMP, CBC #### [facility] [address] [place] [address] USALymphocytes/100 WBC (Bld)48.4 %Normal.[facility] InstituteComment on above:Performed By: #### CMP, CBC #### [facility] [address] [place] [address] USAMCH (RBC) [Entitic mass]33.1 hoEbkjju69.7-34.3FOhio State East HospitalComment on above:Performed By: #### CMP, CBC #### [place] [address] USAMCV (RBC) [Entitic vol]98.4 iKBatyfq68-899IijqrckcgRiverview Health InstituteComment on above:Performed By: #### CMP, CBC #### [place] [address] USAMean Corpuscular HGB Conc33.6 g/pBAxjgqv92.0-35.0[facility] InstituteComment on above:Performed By: #### CMP, CBC #### [facility] [address] [place] [address] USAMonocytes (Bld) [#/Vol]0.4 10*3/uLNormal0.0-0.8[facility] InstituteComment on above:Performed By: #### CMP, CBC #### [facility] [address] [place] [address] USAMonocytes/100 WBC (Bld)4.5 %Normal.[facility] Health InstituteComment on above:Performed By: #### CMP, CBC #### [facility] [address] [place] [address] USANeutrophils (Bld) [#/Vol]3.7 10*3/uLNormal1.8-7.7FOhio State East HospitalComment on above:Performed By: #### CMP, CBC #### [facility] [address] [place] [address] USANeutrophils/100 WBC (Bld)44.4 %Normal.[facility] InstituteComment on above:Performed By: #### CMP, CBC #### [facility] [address] [place] [address] USANRBC%0.1 /100{WBC}Normal0-0.5FOhio State East HospitalComment on above:Performed By: #### CMP, CBC #### [facility] [address] [place] [address] USAPlatelet mean volume (Bld) [Entitic vol]8.3 fLNormal 6.3-10.7FOhio State East HospitalComment on above:Performed By: #### CMP, CBC #### [address] [address] USAPlatelets (Bld) [#/Vol]249 10*3/eFOkvkak441-575MrhvbyiamRiverview Health InstituteComment on above:Performed By: #### CMP, CBC #### [facility] [address] [place] [address] USARBC (Bld) [#/Vol]3.96 10*6/uLNormal3.60-5.00[facility] InstituteComment on above:Performed By: #### CMP, CBC #### [facility] [address] [place] [address] USAWBC (Bld) [#/Vol]8.3 10*3/uLNormal3.8-11.6FOhio State East HospitalComment on above:Performed By: #### CMP, CBC #### [place] [id number] USAComprehensive Metabolic Panelon 16-13-1592Thbaoub [Mass/Vol]3.3 g/dLNormal3.2-5.5FOhio State East HospitalComment on above:Performed By: #### CMP, CBC #### [facility] [address] [place] [address] USAAlbumin/Globulin [Mass ratio]1.5 {ratio}NormalRiverview Health InstituteComment on above:Performed By: #### CMP, CBC #### [facility] [address] [place] [address] USAALP [Catalytic activity/Vol]50 U/LTuslxv68-90TytcskzrjRiverview Health InstituteComment on above:Performed By: #### CMP, CBC #### [facility] [address] [place] [address] USAALT [Catalytic activity/Vol]15 U/SMjbiaj30-68VxjonomrdRiverview Health InstituteComment on above:Performed By: #### CMP, CBC #### [facility] [address] [place] [address] USAAnion gap [Moles/Vol]10.7 mmol/LNormal6.0-15.0R[facility] Health InstituteComment on above:Performed By: #### CMP, CBC #### [facility] [address] [place] [address] USAAST [Catalytic activity/Vol]14 U/IFcaofu58-23EpihkuvooRiverview Health InstituteComment on above:Performed By: #### CMP, CBC #### [facility] [address] [place] [address] USABilirubin [Mass/Vol]0.7 mg/dLNormal0.3-1.2FOhio State East HospitalComment on above:Performed By: #### CMP, CBC #### [facility] [address] [place] [id number] USACalcium [Mass/Vol]9.1 mg/dLNormal8.2-10.2FOhio State East HospitalComment on above:Performed By: #### CMP, CBC #### [facility] [address] [place] [id number] USAChloride [Moles/Vol]110 mmol/QXcyuhj26-498EfazbhsktRiverview Health InstituteComment on above:Performed By: #### CMP, CBC #### [facility] [address] [place] [address] USACO2 [Moles/Vol]22.4 mmol/BYrcubo76.0-30.0[facility] InstituteComment on above:Performed By: #### CMP, CBC #### [facility] [address] [place] [address] USACreatinine [Mass/Vol]0.55 mg/dLNormal0.44-1.03[facility] InstituteComment on above:Performed By: #### CMP, CBC #### [facility] [address] [place] [address] USACreatinine Clr Calc Pblmjvha188.63NoAultman Alliance Community HospitalComment on above:Result Comment: PERFORMED BY: [place] [address] PATHOLOGIST EPIC AMBULATORY ANALYST UNA CUENCA M.D.Performed By: #### CMP, CBC #### [facility] [address] [place] [address] USAEstimated GFR ( Rachna> 60[facility]illicothe HospitalComment on above:Result Comment: GFR estimated reference range: According to KDOQI guidelines, <60 ml/min/1.73m2 is sufficient to diagnose a patient with chronic kidney disease.Performed By: #### CMP, CBC #### [facility] [address] [place] [address] USAEstimated GFR (Non- Am> 60[facility]icothe HospitalComment on above:Performed By: #### CMP, CBC #### [facility] [address] [place] [address] USAGlobulin (S) [Mass/Vol]2.2 g/dLNoAultman Alliance Community HospitalComment on above:Performed By: #### CMP, CBC #### [facility] [address] [place] [address] USAGlucose [Mass/Vol]91 mg/nJTuvbaq90-263VxxifwbjpRiverview Health InstituteComment on above:Result Comment: Random Glucose Reference Range is dependent on time and content of last meal. Glucose of more than 200 mg/dL in a nonstressed, ambulatory subject supports the diagnosis of Diabetes Mellitus. ADA recommended reference rangePerformed By: #### CMP, CBC #### [facility] [address] [place] [address] USAPotassium [Moles/Vol]4.1 mmol/LNormal3.5-5.1FOhio State East HospitalComment on above:Performed By: #### CMP, CBC #### [facility] [address] [place] [address] USAProtein [Mass/Vol]5.5 g/dLLow6.1-7.9R[facility] InstituteComment on above:Performed By: #### CMP, CBC #### [facility] [address] [place] [address] USASodium [Moles/Vol]139 mmol/MKidpdw030-258BefnicmngRiverview Health InstituteComment on above:Performed By: #### CMP, CBC #### [facility] [address] [place] [address] USAUrea nitrogen [Mass/Vol]3 mg/dLLow9-23R[facility] InstituteComment on above:Performed By: #### CMP, CBC #### [facility] [address] [place] [address] USACreatinine and Glomerular filtration rate.predicted panel (S/P/Bld)Ordered By: Jan Carter on 79-14-0508Rgwmphaxsj [Mass/Vol] 0.55 mg/dL0.44-1.03R[facility] Health InstituteEosinophils Auto (Bld) [#/Vol]Ordered By: Jan Carter on 03-87-3659Lxbssddezrs (Bld) [#/Vol] 0.2 10*3/uL0.0-0.45[facility] InstituteEosinophils/100 WBC Auto (Bld)Ordered By: Jan Carter on 48-66-7651Npluwqmaqob/100 WBC (Bld)1.9 %.R[facility] Health InstituteErythrocyte distribution width Auto (RBC) [Ratio]Ordered By: Jan Carter on 91-28-3128Lrtcwripuhu distribution width (RBC) [Ratio]12.4 %11.9-15.3FOhio State East HospitalEstimated glomerular filtration rate (GFR) non- AmericanOrdered By: Jan Carter on 36-18-9531AGQ/1.73 sq M.predicted among non-blacks MDRD (S/P/Bld) [Vol rate/Area]> 60 mL/MinRiverview Health InstituteGlobulin Calc (S) [Mass/Vol]Ordered By: Jan Carter on 31-77-9415Rnixwbiq (S) [Mass/Vol] 2.2 g/dLRiverview Health InstituteHematocrit Auto (Bld) [Volume fraction] Ordered By: Jan Carter on 34-40-1871Tinhxqunni (Bld) [Volume fraction]39.0 %34.0-46.4FOhio State East HospitalHemoglobin [Mass/volume] in BloodOrdered By: Jan Carter on 97-38-7493Jdraejkfme (Bld) [Mass/Vol]13.1 g/dL11.8-15.4FOhio State East HospitalLeukocytes [#/volume] corrected for nucleated erythrocytes in Blood by Automated coun Ordered By: Jan Carter on 01-94-2868OAK corrected for nucl RBC Auto (Bld) [#/Vol]8.3 10*3/uL3.8-11.6FOhio State East HospitalLymphocytes Auto (Bld) [#/Vol]Ordered By: Jan Carter on 64-74-7606Hccpvdnzfbf (Bld) [#/Vol]4.0 10*3/uL1.00-4.8R[facility] Health InstituteLymphocytes/100 WBC Auto (Bld)Ordered By: Jan Carter on 86-07-6697Mjfnnwrvdtw/100 WBC (Bld)48.4 %.R[facility] Health InstituteMCH Auto (RBC) [Entitic mass] Ordered By: Jan Carter on 91-74-0379IWO (RBC) [Entitic mass]33.1 pg 24.7-34.3FOhio State East HospitalMCHC Auto (RBC) [Mass/Vol]Ordered By: Jan Carter on 83-86-8876WQIP (RBC) [Mass/Vol]33.6 g/dL32.0-35.0 [facility] InstituteMCV Auto (RBC) [Entitic vol]Ordered By: Jan Carter on 24-53-3838JYE (RBC) [Entitic vol]98.4 nW72-147TrfxsgzztRiverview Health InstituteMonocytes Auto (Bld) [#/Vol]Ordered By: Jan Carter on 94-71-8876Pmrzxtvsp (Bld) [#/Vol]0.4 10*3/uL0.0-0.8R[facility] InstituteMonocytes/100 WBC Auto (Bld)Ordered By: Jan Carter on 02-45-4221Omoeqkxvs/100 WBC (Bld)4.5 %.R[facility] Health InstituteNeutrophils Auto (Bld) [#/Vol]Ordered By: Jan Carter on 77-68-6770Yilecksmujh (Bld) [#/Vol]3.7 10*3/uL1.8-7.7FOhio State East HospitalNeutrophils/100 WBC Auto (Bld)Ordered By: Jan Carter on 45-69-2011Qffewxpvlet/100 WBC (Bld)44.4 %.R[facility] Health InstituteNo Panel InformationOrdered By: Jan Carter on 90-20-9658Fleaglrzj GFR ()> 60 mL/MinRiverview Health InstituteComment on above: GFR estimated reference range: According to KDOQI guidelines, <60 ml/min/1.73m2 is sufficient todiagnose a patient with chronic kidney disease.Pharmacy Creatinine Clearance (Wjin200.63R[facility]view Health InstituteNucleated erythrocytes [Presence] in Blood by Automated countOrdered By: Jan Carter on 23-26-3924Eymxxohhz RBC Auto Ql (Bld)0.1 /100{WBC}0-0.5FOhio State East HospitalPlatelet mean volume Auto (Bld) [Entitic vol]Ordered By: Jan Carter on 49-41-6798Xzzsdavx mean volume (Bld) [Entitic vol]8.3 fL6.3-10.7FOhio State East HospitalPlatelets Auto (Bld) [#/Vol]Ordered By: Jan Carter on 10-16-0710Uvdkgerxv (Bld) [#/Vol]249 10*3/sP040-452 [facility] InstituteProtein [Mass/volume] in Serum or PlasmaOrdered By: Jan Carter on 29-98-9806Xhnxjwr [Mass/Vol]5.5 g/dL6.1-7.9 [facility] InstituteRBC Auto (Bld) [#/Vol]Ordered By: Jan Carter on 89-84-0018TTF (Bld) [#/Vol]3.96 10*6/uL3.60-5.00Mary Rutan Hospitalerum or plasma alanine aminotransferase measurement without P-5'-P (enzymatic activiOrdered By: Jan Carter on 35-22-5961RGJ No additional P-5'-P [Catalytic activity/Vol]15 U/I69-35TwfdjgurxMary Rutan Hospitalerum or plasma albumin/globulin mass ratioOrdered By: Jan Carter on 38-64-8660Zxcrmns/Globulin [Mass ratio]1.5 {ratio}Mary Rutan Hospitalerum or plasma alkaline phosphatase measurement (enzymatic activity/volume)Ordered By: Jan Carter on 66-37-2225XGI [Catalytic activity/Vol]50 U/L63-74QmuxqpdwdMary Rutan Hospitalerum or plasma anion gap determinationOrdered By: Jan Carter on 01-08-2023 Anion gap [Moles/Vol]10.7 mmol/L6.0-15.0Mary Rutan Hospitalerum or plasma aspartate aminotransferase measurement (enzymatic activity/volume) Ordered By: Jan Carter on 42-52-8161SOW [Catalytic activity/Vol]14 U/V24-08GtrsbhyweMary Rutan Hospitalerum or plasma calcium measurement (mass/volume)Ordered By: Jan Carter on 47-15-6401Wuywcan [Mass/Vol] 9.1 mg/dL8.2-10.2FBerger Hospitalerum or plasma chloride measurement (moles/volume)Ordered By: Jan Carter on 01-08-2023 Chloride [Moles/Vol]110 mmol/W42-992NcbjwpubgMary Rutan Hospitalerum or plasma glucose measurement (mass/volume)Ordered By: Jan Carter on 74-79-6486Lrfrbug [Mass/Vol]91 mg/yE26-724FqnfegqvkRiverview Health Institute Comment on above:ADA recommended reference rangeRandom Glucose Reference Range is dependent on time and content of last meal. Glucose of more than 200 mg/dL in a nonstressed, ambulatory subject supports the diagnosisof Diabetes Mellitus. Serum or plasma potassium measurement (moles/volume)Ordered By: Jan Carter on 86-40-3214Mwuwsvdnl [Moles/Vol]4.1 mmol/L3.5-5.1FBerger Hospitalerum or plasma sodium measurement (moles/volume)Ordered By: Jan Carter on 79-07-5411Pjtirw [Moles/Vol]139 mmol/S594-260IehnqjekvMary Rutan Hospitalerum or plasma total bilirubin measurement (mass/volume) Ordered By: Jan Carter on 37-16-9383Zhrlmnnrg [Mass/Vol]0.7 mg/dL 0.3-1.2FBerger Hospitalerum or plasma total carbon dioxide measurement (moles/volume)Ordered By: Jan Carter on 39-08-8828QU4 [Moles/Vol]22.4 mmol/L22.0-30.0Mary Rutan Hospitalerum or plasma urea nitrogen measurement (mass/volume)Ordered By: Jan Carter on 83-13-9940Anci nitrogen [Mass/Vol]3 mg/dL9-[facility] WBC Auto (Bld) [#/Vol]Ordered By: Jan Carter on 93-04-0946BHF (Bld) [#/Vol]8.3 10*3/uL3.8-11.6FOhio State East HospitalCHEMISTRYOrdered By: SYSTEM SYSTEM on 45-62-6697Ajwyqxpsmxubl [Mass/Vol]microgram/mLLow15 - 30 mcg/mL [facility] RemisolAlbumin [Mass/Vol]3.8 g/dLNormal3.3 - 5.0 gm/dLFTMC Remisol Albumin/Globulin [Mass ratio]1.4 {ratio}Normal1.1 - 2.2[facility] RemisolALP [Catalytic activity/Vol]56 [iU]/xOpumio88 - 98 Int._Unit/LFTMC RemisolALT No additional P-5'-P [Catalytic activity/Vol]14 [iU]/dNormal6 - 46 Int._Unit/LFTMC RemisolAnion gap [Moles/Vol]14 mmol/LNormal6 - 16 mEq/LFT[facility] RemisolAST [Catalytic activity/Vol]13 [iU]/dNormal5 - 43 Int._Unit/LFT[facility] RemisolBilirubin [Mass/Vol]0.6 mg/dLNormal0.0 - 1.1 mg/dLFTMC RemisolCalcium [Mass/Vol]8.8 mg/dL Low8.9 - 11.1 mg/dLFTMC RemisolChloride [Moles/Vol]108 mmol/PDnuvxx190 - 111 mmol/LFT[facility] RemisolCO2 [Moles/Vol]19 mmol/LLow21 - 31 mmol/LFT[facility] Remisol Creatinine [Mass/Vol]0.5 mg/dLNormal0.5 - 1.3 mg/dLFTMC RemisolEthanol [Mass/Vol]mg/dLNormal<=7mg/dLFTMC RemisolGFR/1.73 sq M.predicted among blacks MDRD (S/P/Bld) [Vol rate/Area]mL/min/1.73 t2Yfdzzq>=59mL/min/1.73 m2FT Chem S GFR/1.73 sq M.predicted among non-blacks MDRD (S/P/Bld) [Vol rate/Area] mL/min/1.73 t3Rcujil>=59mL/min/1.73 m2[facility] [place] Chem SGlobulin (S) [Mass/Vol]2.7 g/dL Normal1.4 - 4.0 gm/dLFT RemisolGlucose [Mass/Vol]127 mg/pQUbfsjh97 - 199 mg/dL [facility] RemisolPotassium [Moles/Vol]3.1 mmol/LLow3.5 - 5.3 mmol/LFTMC Remisol Protein [Mass/Vol]6.5 g/dLNormal6.0 - 7.8 gm/dLFTMC RemisolSalicylates [Mass/Vol]mg/dLLow6 - 29 mg/dLFT RemisolSodium [Moles/Vol]138 mmol/FJtmomb629 - 145 mmol/LFTMC RemisolUrea nitrogen [Mass/Vol]mg/dLNormal5 - 21 mg/dLCURAHEALTH [facility] [place] [facility] [place] RemisolUrea nitrogen/Creatinine [Mass ratio]Unable to CalculateInvalid Interpretation [...] - 0.5 E9/L [facility] HemeAutoSSLymphocytes/100 WBC (Bld)18.1 %Xoghlf91.0 - 50.0 %[facility] HemeAutoSS Lymphocytes/Leukocytes Auto (Bld) [Pure # fraction]2.5 E9/LNormal1.0 - 4.0 E9/L [facility] HemeAutoSSMonocytes/100 WBC (Bld)3.4 %Low4.0 - 14.0 %[facility] HemeAutoSS Monocytes/Leukocytes Auto (Bld) [Pure # fraction]0.5 E9/LNormal0.2 - 1.0 E9/L [facility] HemeAutoSSNeutrophils/100 WBC (Bld)77.7 %High36.0 - 75.0 %[facility] HemeAutoSS Neutrophils/Leukocytes Auto (Bld) [Pure # fraction]10.9 E9/LHigh2.0 - 7.5 E9/L [facility] HemeAutoSSHEMATOLOGYOrdered By: Altagracia Arizmendi on 31-80-4910Uwxoeackypa distribution width (RBC) [Ratio]12.1 %Mpfxkm47.9 - 14.2 %[facility] HemeAutoSS Hematocrit (Bld) [Volume fraction]42.0 %Yejsuv96.0 - 46.0 %[facility] HemeAutoSS Hemoglobin (Bld) [Mass/Vol]13.9 g/lJBqatvr06.0 - 16.0 gm/dLFTMC HemeAutoSSMCH (RBC) [Entitic mass]32.7 mnPunzvq87.0 - 34.0 pgFALLIANCEHE[facility] [place] [place] [facility] [place] HemeAutoSSMCHC (RBC) [Mass/Vol]33.1 g/dJFakbck56.4 - 36.0 gm/dLFT HemeAutoSSMCV (RBC) [Entitic vol] 98.8 hHYqvmtp20.0 - 100.0 fLCURAHEALTH [facility] [place] [facility] [place] HemeAutoSSPlatelet mean volume (Bld) [Entitic vol]8.1 fLNormal6.4 - 10.8 fLCURAHEALTH [facility] [place] [facility] [place] HemeAutoSSPlatelets (Bld) [#/Vol]263.0 E9/L Fwkhqg127.0 - 500.0 E9/LFTMC HemeAutoSSRBC (Bld) [#/Vol]4.3 E12/LNormal4.3 - 5.9 E12/LFTMC HemeAutoSSWBC corrected for nucl RBC Auto (Bld) [#/Vol]14.0 E9/LHigh 4.0 - 11.0 E9/LFTMC HemeAutoSSMICRO OTHER TESTSOrdered By: Mamta Hurd on 17-94-3412Epfin COV Int NEG CtlPass (01/07/23 11:44 PM)NormalCURAHEALTH [facility] [place] [facility] [place] Man SeroRapid COV Int POS CtlPass (01/07/23 11:44 PM)NormalCURAHEALTH [facility] [facility] [place] Man SeroSARS-CoV+SARS-CoV-2 (COVID-19) Ag IA.rapid Ql (Resp)Not Detected (01/07/23 11:44 PM)NormalNot DetectedCURAHEALTH [facility] [facility] [place] Man SeroSEROLOGYOrdered By: Rimma Erickson on 41-18-8082Hhuz hCG QlNegative (01/07/23 4:13 PM)NormalCURAHEALTH [facility] [place] Man SeroInitial Visit (Gastroenterology)on 62-83-2034Iixnlcu Visit (Gastroenterology)Diagnoses/Problems Assessed Chronic pancreatitis (577.1) (K86.1) Orders Chronic pancreatitis Start: Creon [id number] UNIT Oral Capsule Delayed Release Particles; TAKE 1 CAPSULE 3 times daily Rx By: Jing Troncoso; Dispense: 0 Days ; #:48 Capsule; Refill: 0;For: Chronic pancreatitis; CHEIKH = N;Dispense Sample CELIAC DISEASE SEROLOGY PANEL; Status:Active; Requested for:[id number]; Perform:Lab Services - Lab To Draw (Blood [...] family doctor regarding lung nodules noted at [facility]. Discussed smoking cessation, not inclined to begin at this time. Patient not currently involved in AA is to begin new program as she is recently moved to [place]. Check routine labs begin Creon 36,000 units [...] to the toilet bowl. History of Present Imagvmq97-ipht-mfx female with longstanding history of alcohol abuse quit drinking 7 months ago last drink was July 09, 2022. [facility]. History of prior hospitalizations and evaluation for pancreatitis. CTscan at that time showed calcifications along the pancreas with fatty liver no evidence of cirrhosis per patient unable to pull up imaging on [facility]. She presents today to establish care. [...] Vital Signs Recorded: 03Jan2023 02:50PM Heart Rate92 Crwduzmvues57 Bqdbrthb616 Diasto (more content not included)...NormalUH TouchworksXR CHEST (2 VW)on 12-29-2022 Nonacute two-view chest. [facility] CONSOLIDATEDEXAM: XR CHEST (2 VW) HISTORY: Reason for exam:->cough COMPARISON: Two-view chest from 12/21/2016. TECHNIQUE: Frontal and lateral films were done of the chest. FINDINGS: Trachea, mediastinum and heart size are unremarkable. The lungs are clear and well aerated. No infiltrate or nodule or effusion or pneumothorax is noted. Diaphragm and bony elements are intact. [facility] Jude Ozuna, DO - 12/29/2022 EXAM: XR CHEST (2 VW) HISTORY: Reason for exam:->cough COMPARISON: Two-view chest from 12/21/2016. TECHNIQUE: Frontal and lateral films were done of the chest. FINDINGS: Trachea, mediastinum and heart size are unremarkable. The lungs are clear and well aerated. No infiltrate or nodule or effusion or pneumothorax is noted. Diaphragm and bony elements are intact. IMPRESSION: Nonacute two-view chest. [employer] Phone: radiology Study observation (narrative)[facility] Phone: XR CHEST (2 VW)Ordered By: Jude Tony on 88-66-5218[facility] [place] Phone: Progress Noteson 34-97-7615Qekwuaizikoyg Authentication Interface Message TextEMERGENCY TRIAGE, TREAT AND TRANSPORT (ET3) DOCUMENTATION OF TELEHEALTH VISIT Date / Time: 10/31/2022 / 5 Name: Shirin Burgos : 1990 SSN: [id number] EMS Agency: [facility] [x] Verbal consent obtained [] Implied consent - patient with potential emergency medical condition requiring assessment of capacity to refuse treatment and/or transport VITAL SIGNS: see flowsheet documentation Reason for Telehealth Visit: Chief Complaint Patient presents with Abdominal pain History of Present Ilness: 32 yo female w/ PMH of pancreatitis called EMS for abdominal pain Started today. Similar to pancreatitis. / does not radiate Reports occassional bloody stools. Pt now declining transport and would like to [facility]. Additional pertinent PMHx, SocHx, FamHx: PMH chr [...] Disposition Reported: Same ET3 Encounter Completed by: Pam Zuleta [facility] HospitalCedip Infrared Systems System AMYLASEon 82-69-8715Xqsiksd [Catalytic activity/Vol]124 U/LCritically ieze33-449 [facility] - WestComment on above:Performed By: #### CMP, LAURYN, LIPA #### [facility] [address] [place] [address] [address] Nick uMsa AUTO DIFFon 02-49-0741FGWD #0.0 103/ulNormal0.0-0.1[facility] - WestComment on above:Performed By: #### CBC #### [facility] [address] [address] [address] Nick Rogerphils/100 WBC (Bld)0.3 %Normal0.2-2.0[facility] Comment on above:Performed By: #### CBC #### [facility] [address] [address] [address] Romero ChangEAdrian #0.1 103/ulNormal0.0-0.7The [facility] - WestComment on above: Performed By: #### CBC #### [facility] [address] [place] [address] Dr. Nick Pickardosinophils/100 WBC (Bld)0.7 %Critically low0.9-7.0[facility] - WestComment on above:Performed By: #### CBC #### [facility] [address] [place] [address] Dr. Nick Pickardrythrocyte distribution width (RBC) [Ratio]12.9 %Oblxqj11.0-15.0 [facility] - WestComment on above:Performed By: #### CBC #### [facility] [address] [place] [address] Dr. Nick PerezHematocrit (Bld) [Volume fraction]45.7 %Ldjzxw19.0-48.0[facility] - WestComment on above:Performed By: #### CBC #### [facility] [address] [place] [address] Dr. Nick PerezHemoglobin (Bld) [Mass/Vol]15.9 g/jFCjwizm63.0-16.0[facility] - WestComment on above:Performed By: #### CBC #### [facility] [address] [place] [address] Dr. Nick Booth #0.04 10e3/ulCritically high0.00-0.03[facility] Comment on above:Performed By: #### CBC #### [facility] [address] [place] [address] Dr. Nick Booth %0.3 %Normal0.0-0.5The [facility] - WestComment on above: Performed By: #### CBC #### [facility] [address] [place] [address] Dr. Nick DiegoH #3.5 103/ulNormal1.2-3.8The [facility] - WestComment on above:Performed By: #### CBC #### [facility] [address] [place] [address] Dr. Nick Alvesmphocytes/100 WBC (Bld)25.5 %Clraph10.5-60.0The [facility] - WestComment on above:Performed By: #### CBC #### [facility] [address] [place] [address] Dr. Nick James DIFF REQNONormalThe [facility] Hospital - WestComment on above: Performed By: #### CBC #### [facility] [address] [place] [address] Dr. Nick Roe (RBC) [Entitic mass]34.8 pgCritically high26.7-34.0[facility] West[facility] on above:Performed By: #### CBC #### [facility] [address] [place] [address] Dr. Nick Roe (RBC) [Mass/Vol]34.8 g/mDMvsyuc38.9-35.2[facility] WestComment on above:Performed By: #### CBC #### [facility] [address] [place] [address] Dr. Nick Reo (RBC) [Entitic vol]100.0 fLCritically high81.0-99.0[facility] on above:Performed By: #### CBC #### [facility] [address] [place] [address] Dr. Nick Taylor #0.7 103/ulNormal0.3-0.8The [facility] - WestComment on above:Performed By: #### CBC #### [facility] [address] [place] [address] Dr. Nick Gusmanocytes/100 WBC (Bld)5.0 %Normal1.7-12.0[facility] [place] Comment on above:Performed By: #### CBC #### [facility] [address] [place] [address] Dr. Nick Bunch #9.4 103/ulCritically high1.4-6.5The [facility] Comment on above:Performed By: #### CBC #### [facility] [address] [place] [address] Dr. Nick Villautrophils/100 WBC (Bld)68.2 %Uqjxfa63.0-75.0The [facility] - WestComment on above:Performed By: #### CBC #### [facility] [address] [place] [address] Dr. Nick Jones mean volume (Bld) [Entitic vol]9.4 fLCritically low 9.5-13.5The [facility] - WestComment on above:Performed By: #### CBC #### [facility] [address] [place] [address] Dr. Nick PerezPLT260 103/jzBnqmyq036-799Zmz [facility] - WestComment on above: Performed By: #### CBC #### [facility] [address] [place] [address] Dr. Nick PerezRBC4.57 106/ulNormal4.20-5.40The [facility] - WestComment on above:Performed By: #### CBC #### [facility] [address] [place] [address] Dr. Nick PerezWBC13.8 103/ulCritically high4.0-11.0The [facility] - WestComment on above:Performed By: #### CBC #### [facility] [address] [place] [address] Dr. Nick PerezCT ABD/PELV W CONon [id number] ABD/PELV W CONEXAMINATION: CT ABD/PELV W CON [...] Electronically authenticated by: DIANA HERNANDEZ Date: 2022-07-16 02:[address] [place] [address] URINE PROFILEon [id number] Ql (U)NegativeNormal NEGATIVESelect [facility], BeachwoodComment on above:Performed By: #### ERUR #### [facility] [address] [place] [address] Dr. Nick PerezClarity ()CLEARNormalCLEARSelect Medical [facility], BeachwoodComment on above: Performed By: #### ERUR #### [facility] [address] [place] [address] Dr. Nick Otero (U)LT. YELLOWNormalYELLOWSelect Medical [facility], BeachwoodComment on above:Performed By: #### ERUR #### [facility] [address] [place] [address] Dr. Nick Schmid micrscopic examination will be performed if indicated. NormalSelect Medical [facility] Hospital, BeachwoodComment on above:Performed By: #### ERUR #### [facility] [address] [place] [address] Dr. Nick PerezGlucose Ql (U)NegativeNormalNEGATIVESelect [facility], BeachwoodComment on above:Performed By: #### ERUR #### [facility] [address] [place] [address] Dr. Nick PerezHemoglobin Ql (U)NegativeNormalNEGATIVEOhiohealth Shelby Hospital on above:Performed By: #### ERUR #### [facility] [address] [place] [address] Dr. Nick PerezKetones Ql (U)NegativeNormalNEGATIVESelect [facility], BeachwoodComment on above:Performed By: #### ERUR #### [facility] [address] [place] [address] Dr. Nick PerezLEUKOCYTESNegativeNormalNEGATIVESelect [facility], BeachwoodComment on above:Performed By: #### ERUR #### [facility] [address] [place] [address] Dr. Nick Brunotrciara Ql (U)NegativeNormalNEGATIVEThe [facility] Hospital - WestComment on above:Performed By: #### ERUR #### [facility] [address] [place] [address] Dr. Nick PerezpH (U)6.0 [pH]Normal5-9The [facility] WestComaspirus [facility] on above: Performed By: #### ERUR #### [facility] [address] [place] [address] Dr. Nick PerezSPEC GRAVITY<=1.202Yxtuinaa9.005-<=1.025The [facility] Comment on above:Performed By: #### ERUR #### [facility] [address] [place] [address] Dr. Nick Pierre PROTEINNegativermalNEGATIVE/ TRACEThe [facility] Comment on above:Performed By: #### ERUR #### [facility] [address] [place] [address] Dr. Nick Zamarripa MICRO INDNOT INDICATEDNoalThMercy Health Anderson HospitalComment on above:Performed By: #### ERUR #### [facility] [address] [place] [address] Dr. Nick Hamptonbilinogen Qn (U)0.2 {Ta'U}/dLNormal0.2 - 1.0The [facility] - WestComment on above:Performed By: #### ERUR #### [facility] [address] [place] [address] Dr. Nick PerezLIPASEon 01-24-0001Zliqfi [Catalytic activity/Vol]99.0 U/LNormal 73.0-393.0The [facility] - WestComment on above:Performed By: #### CMP, LAURYN, LIPA #### [facility] [address] [place] [address] Dr. Nick PerezPREGNANCY URon [id number], QUALNegativeNormalNEGATIVEThe [facility] - WestComment on above:Performed By: #### ERUR #### [facility] [address] [place] [address] Dr. Nick PerezPROF 14(COMP METB)on 33-01-0994Mjuekoi [Mass/Vol]3.9 g/dLNormal 3.4-5.0The Sanger HospitalComment on above:Performed By: #### CMP, LAURYN, LIPA #### [facility] [address] [place] [address] Dr. Nick PerezAlbumin/Globulin [Mass ratio]1.3 {ratio}NormalThe [facility] Hospital - WestComment on above:Performed By: #### CMP, LAURYN, LIPA #### [facility] [address] [place] [address] Dr. Nick Marley [Catalytic activity/Vol]76 U/KCcpuzx26-680Nfs [facility] - WestComment on above:Performed By: #### CMP, LAURYN, LIPA #### [facility] [address] [place] [address] Dr. Nick Bowie [Catalytic activity/Vol]24 U/ECwxtpi72-33Iup [facility] - WestComment on above:Performed By: #### CMP, LAURYN, LIPA #### [facility] [address] [place] [address] Dr. Nick Salazar gap [Moles/Vol]12.8 mmol/LNormalThe [facility] on above:Performed By: #### CMP, LAURYN, LIPA #### [facility] [address] [place] [address] Dr. Nick Doran [Catalytic activity/Vol]19 U/IJjjfor41-92Cek [facility] - WestComment on above:Performed By: #### CMP, LAURYN, LIPA #### [facility] [address] [place] [address] Dr. Yilan ChangBilirubin [Mass/Vol]1.6 mg/dLCritically high0.2-1.0The [facility] - WestComment on above:Performed By: #### CMP, LAURYN, LIPA #### [facility] [address] [place] [address] Dr. Nick PerezCalcium [Mass/Vol]9.4 mg/dLNormal8.5-10.1The [facility] Comment on above:Performed By: #### CMP, LAURYN, LIPA #### [facility] [address] [place] [address] Dr. Nick PerezChloride [Moles/Vol]103 mmol/MSoikvh77-214Sxg [facility] Comment on above:Performed By: #### CMP, LAURYN, LIPA #### [facility] [address] [place] [address] Dr. Nick PerezCO2 [Moles/Vol]25.2 mmol/KYjhrtq45.0-32.0The [facility] Comment on above:Performed By: #### CMP, LAURYN, LIPA #### [facility] [address] [place] [address] Dr. Nick PerezCreatinine [Mass/Vol]0.68 mg/dLNormal0.55-1.02The [facility] - WestComment on above:Performed By: #### CMP, LAURYN, LIPA #### [facility] [address] [place] [address] Dr. Nick PickardGFR-AF LIBERIAN>60Normal>=60The [facility] - WestComment on above:Performed By: #### CMP, LAURYN, LIPA #### [facility] [address] [place] [address] Dr. Nick PickardGFR-NON AF LIBERIAN>60Normal>=60The [facility] - WestComment on above:Performed By: #### CMP, LAURYN, LIPA #### [facility] [address] [place] [address] Dr. Nick PerezGlobulin (S) [Mass/Vol]2.9 g/dLNormalThe [facility] - WestComment on above:Performed By: #### CMP, LAURYN, LIPA #### [facility] [address] [address] [address] Nick PerezGlucose [Mass/Vol]99 mg/nFQdgnet13-025DlnSelect Medical [facility] [place] Comment on above:Performed By: #### CMP, LAURYN, LIPA #### [facility] [address] [address] [address] Nick PerezPotassium [Moles/Vol]3.0 mmol/LCritically low3.5-5.1The [facility] - WestComment on above:Performed By: #### CMP, LAURYN, LIPA #### [facility] [address] [address] [address] Nick PerezProtein [Mass/Vol]6.8 g/dLNormal6.4-8.2[facility] [place] Comment on above:Performed By: #### CMP, LAURYN, LIPA #### [facility] [address] [place] [address] Dr. Nick PerezSodium [Moles/Vol]138 mmol/RPiwzvi157-108GabSelect Medical [facility] [place] Comment on above:Performed By: #### CMP, LAURYN, LIPA #### [facility] [address] [address] [address] Nick PerezUrea nitrogen [Mass/Vol]3.0 mg/dLCritically low7.0-18.0[facility], BeachwoodComment on above:Performed By: #### CMP, LAURYN, LIPA #### [facility] [address] [place] [address] Dr. Nick PerezUrea nitrogen/Creatinine [Mass ratio]4.4 mg/mgNormalThe [facility] - WestComment on above:Performed By: #### CMP, LAURYN, LIPA #### [facility] [address] [place] [address] Dr. Nick Luz 125on 68-30-8148Oqwezb Antigen (CA) 1257.8 U/mLNormal0.0-38.1 The [facility] - WestComment on above:Result Comment: [employer] Electrochemiluminescence Immunoassay (ECLIA) . Values obtained with different assay methods or kits cannot be used interchangeably. Results cannot be interpreted as absolute evidence of the presence or absence of malignant disease.Performed By: #### ERUR #### [facility] [address] [place] [address] Dr. Nick PerezUS PELVIS AND TRANSVAGon [id number] PELVIS AND TRANSVAG EXAMINATION: US PELVIS AND [...] Electronically authenticated by: AURA MENARD Date: 2022-06-18 13:12[facility] HospitalCT [facility]PELV W CONon [id number] ABD/PELV W CONEXAM: CT ABD/PELV W CON [...] authenticated by: FAROOQ LOPEZ Date: 2022-05-29 23:15NormalThe [facility] AUTO DIFFon [id number] #0.0 103/ulNormal0.0-0.1The [facility] - WestComment on above:Performed By: #### CBC #### [facility] [address] [place] [address] Dr. Nick Rogerphils/100 WBC (Bld)0.6 %Normal0.2-2.0[facility] [place] Comment on above:Performed By: #### CBC #### [facility] [address] [address] [address] Nick Ledesma #0.0 103/ulNormal0.0-0.7The [facility] - WestComment on above: Performed By: #### CBC #### [facility] [address] [place] [address] Dr. Yilan ChangEosinophils/100 WBC (Bld)0.0 %Critically low0.9-7.0The [facility] - WestComment on above:Performed By: #### CBC #### [facility] [address] [place] [address] Dr. Nick Pickardrythrocyte distribution width (RBC) [Ratio]14.7 %Wthrny65.0-15.0 The [facility] - WestComment on above:Performed By: #### CBC #### [facility] [address] [place] [address] Dr. Nick PerezHematocrit (Bld) [Volume fraction]41.7 %Cyjbzm74.0-48.0The [facility] - WestComment on above:Performed By: #### CBC #### [facility] [address] [place] [address] Dr. Nick PerezHemoglobin (Bld) [Mass/Vol]14.5 g/iHOdtova92.0-16.0The [facility] - WestComment on above:Performed By: #### CBC #### [facility] [address] [place] [address] Dr. Nick Booth #0.01 10e3/ulNormal0.00-0.03The [facility] - WestComment on above:Performed By: #### CBC #### [facility] [address] [place] [address] Dr. Nick PerezIG %0.3 %Normal0.0-0.5The [facility] - WestComment on above: Performed By: #### CBC #### [facility] [address] [place] [address] Dr. Nick AlvesMPH #0.8 103/ulCritically low1.2-3.8The [facility] Comment on above:Performed By: #### CBC #### [facility] [address] [place] [address] Dr. Nick Alvesmphocytes/100 WBC (Bld)23.0 %Ubbcpq33.5-60.0The [facility] - WestComment on above:Performed By: #### CBC #### [facility] [address] [place] [address] Dr. Nick James DIFF REQNONormalThe [facility] Hospital - WestComment on above: Performed By: #### CBC #### [facility] [address] [place] [address] Dr. Nick Roe (RBC) [Entitic mass]33.6 yuKvmsfi70.7-34.0The [facility] - WestComment on above:Performed By: #### CBC #### [facility] [address] [place] [address] Dr. Nick Roe (RBC) [Mass/Vol]34.8 g/aANhpdhu98.9-35.2The [facility] - WestComment on above:Performed By: #### CBC #### [facility] [address] [place] [address] Dr. Nick Roe (RBC) [Entitic vol]96.5 vUOhjkat05.0-99.0The [facility] - WestComment on above:Performed By: #### CBC #### [facility] [address] [place] [address] Dr. Nick Taylor #0.3 103/ulNormal0.3-0.8The [facility] - WestComment on above:Performed By: #### CBC #### [facility] [address] [place] [address] Dr. Nick Gusmanocytes/100 WBC (Bld)8.8 %Normal1.7-12.0The [facility] Comment on above:Performed By: #### CBC #### [facility] [address] [place] [address] Dr. Nick Bunch #2.2 103/ulNormal1.4-6.5The [facility] - WestComment on above:Performed By: #### CBC #### [facility] [address] [place] [address] Dr. Nick Villautrophils/100 WBC (Bld)67.3 %Oepltt50.0-75.0The [facility] - WestComment on above:Performed By: #### CBC #### [facility] [address] [address] [address] Nick PerezPlatelet mean volume (Bld) [Entitic vol]9.6 fLNormal9.5-13.5The [facility] on above:Performed By: #### CBC #### [facility] [address] [place] [address] Dr. Nick PerezPLT194 103/swPcjzdx553-581Ljf [facility] on above: Performed By: #### CBC #### [facility] [address] [place] [address] Dr. Nick PerezRBC4.32 106/ulNormal4.20-5.40The [facility] on above:Performed By: #### CBC #### [facility] [address] [place] [address] Dr. Nick PerezWBC3.3 103/ulCritically low4.0-11.0The [facility] on above:Performed By: #### CBC #### [facility] [address] [place] [address] Dr. Nick PerezCovid-19 PCR (CVDTBH)on 54-55-4412HJWV-CoV-2 (COVID-19) RNA LAURA+probe Ql (Unsp spec)DetectedCritically abnormalNOT DETECTEDThe [facility] on above:Result Comment: This test is not yet approved or cleared by the [place] FDA. When there are no FDA-approved or cleared tests available, and other criteria are met, FDA can make tests available under an emergency access mechanism called an Emergency Use Authorization (EUA). The EUA for this test is supported by the [place] of Health and Human Service's declaration that [...] longer be used).Performed By: #### ERUR #### [facility] [address] [place] [address] Dr. Nick Valadez URINE PROFILEon 03-63-3292Qxdrrcjys Ql (U)NegativeNormal NEGATIVESelect Medical [facility] Hospital, BeachwoodComment on above:Performed By: #### ERUR #### [facility] [address] [place] [address] Dr. Nick PerezClarity (U)CLEARNormalCLEARSelect Medical [facility], BeachwoodComment on above: Performed By: #### ERUR #### [facility] [address] [place] [address] Dr. Nick Jeromelor (U)YELLOWNormalYELLOWSelect Medical [facility] Hospital, BeachwoodComment on above: Performed By: #### ERUR #### [facility] [address] [place] [address] Dr. Nick Schmid micrscopic examination will be performed if indicated. NormalSelect Medical Cleveland Clinic Rehabilitation Hospital, BeachwoodComment on above:Performed By: #### ERUR #### [facility] [address] [place] [address] Dr. Nick PerezGlucose Ql (U)NegativeNormalNEGATIVESelect Medical [facility] Hospital, BeachwoodComment on above:Performed By: #### ERUR #### [facility] [address] [place] [address] Dr. Nick PerezHemoglobin Ql (U)NegativeNormalNEGATIVEOhiohealth Shelby Hospital on above:Performed By: #### ERUR #### [facility] [address] [place] [address] Dr. Nick PerezKetones Ql (U)NegativeNormalNEGATIVESelect Medical [facility], BeachwoodComment on above:Performed By: #### ERUR #### [facility] [address] [place] [address] Dr. Nick PerezLEUKOCYTESNegativeNormalNEGATIVESelect [facility], BeachwoodComaspirus [facility] on above:Performed By: #### ERUR #### [facility] [address] [place] [address] Dr. Nick PerezNitrite Ql (U)NegativeNormalNEGATIVESelect Medical [facility], BeachwoodComment on above:Performed By: #### ERUR #### [facility] [address] [place] [address] Dr. Nick PerezpH (U)6.0 [pH]Normal5-9The [facility] - WestComment on above: Performed By: #### ERUR #### [facility] [address] [place] [address] Dr. Nick PerezSPEC GRAVITY1.423Fgzwjv7.005-<=1.025The [facility] - WestComment on above:Performed By: #### ERUR #### [facility] [address] [place] [address] Dr. Nick Pierre PROTEINNegativeNormalNEGATIVE/ TRACEThe [facility] Comment on above:Performed By: #### ERUR #### [facility] [address] [place] [address] Dr. Nick Zamarripa MICRO INDNOT INDICATEDNormalThe [facility] - WestComment on above:Performed By: #### ERUR #### [facility] [address] [place] [address] Dr. Nick Hamptonbilinogen Qn (U)1.0 {Ta'U}/dLNormal0.2 - 1.0The [facility] - WestComment on above:Performed By: #### ERUR #### [facility] [address] [place] [address] Dr. Nick PerezLIPASEon 13-95-1199Pxyxou [Catalytic activity/Vol]109.0 U/LNormal 73.0-393.0The [facility] - WestComment on above:Performed By: #### BMP, LIPA #### [facility] [address] [place] [address] Dr. Nick PerezPROF CHEM 8 (BAS METB)on 07-94-6065Kzsoe gap [Moles/Vol]12.9 mmol/LNormalThe [facility] - WestComment on above:Performed By: #### BMP, LIPA #### [facility] [address] [place] [address] Dr. Nick PerezCalcium [Mass/Vol]8.8 mg/dLNormal8.5-10.1The [facility] Comment on above:Performed By: #### BMP, LIPA #### [facility] [address] [address] [address] Nick PerezChloride [Moles/Vol]103 mmol/ERhxcsj47-641Vfz [facility] Comment on above:Performed By: #### BMP, LIPA #### [facility] [address] [address] [address] Nick PerezCO2 [Moles/Vol]24.6 mmol/WQpgkkj73.0-32.0The [facility] Comment on above:Performed By: #### BMP, LIPA #### [facility] [address] [address] [address] Nick PerezCreatinine [Mass/Vol]0.72 mg/dLNormal0.55-1.02The [facility] - WestComment on above:Performed By: #### BMP, LIPA #### [facility] [address] [address] [address] Nick PickardGFR-AF LIBERIAN>60Normal>=60The [facility] - WestComment on above:Performed By: #### BMP, LIPA #### [facility] [address] [address] [address] Nick PickardGFR-NON AF LIBERIAN>60Normal>=60The [facility] - WestComment on above:Performed By: #### BMP, LIPA #### [facility] [address] [address] [address] Nick PerezGlucose [Mass/Vol]70 mg/dLCritically dxa93-277Ceu [facility] WestComment on above:Performed By: #### BMP, LIPA #### [facility] [address] [address] [address] Nick PerezPotassium [Moles/Vol]3.5 mmol/LNormal3.5-5.1[facility] [place] Comment on above:Performed By: #### BMP, LIPA #### [facility] [address] [address] [address] Nick PerezSodium [Moles/Vol]137 mmol/VHzgrul208-357GavSelect Medical [facility], [place] Comment on above:Performed By: #### BMP, LIPA #### [facility] [address] [address] [address] Nick PerezUrea nitrogen [Mass/Vol]5.0 mg/dLCritically low7.0-18.0[facility], BeachwoodComment on above:Performed By: #### BMP, LIPA #### [facility] [address] [address] [address] Nick PerezUrea nitrogen/Creatinine [Mass ratio]6.9 mg/mgNoThe Bellevue HospitalComment on above:Performed By: #### ROSALIND, LIPA #### [facility] [address] [address] [address] Nick PerezXR ANKLE LT MIN 3 Von [id number] ANKLE LT MIN 3 VEXAM: XR ANKLE [...] Electronically authenticated by: IMAN QUEZADA Date: 2022-04-22 11:46[facility] HospitalXR [facility] 2 Views*on [id number] Chest 2 Views*FINDINGS: No change from August 24, 2021. No acute cardiac or pulmonary disease is identified. No worrisome mass lesions or infiltrates are seen. No pulmonary edema or pneumothorax is present. Cardiac silhouette size is normal. Skeletal structures are unremarkable. IMPRESSION: No acute cardiac or pulmonary disease. Report reported and signed by Dakota Horowitz on 12/27/2021 1434NormalNorthern Missouri Medical SpecialistQ - CHLAMYDIA TRACHOMATIS/NEISSERIA GONORRHOEAE RNA TMAon [id number] TRACHOMATIS RNA, TMA, UROGENITALNot detectedNormalNOT DETECTEDNorthern [facility] SpecialistComment on above:Order Comment: [facility] performed at: [facility], [facility], [address] , [address] [place], [place], [address] [place] [address], Pharmacognosist: Michael Grewal MD [facility] Collection Date/Time: [facility] Results Received Date/Time: [facility] Reported Date/Time: FASTING: NOPerformed By: #### [id number], %SBNOCULI, 3020X #### [facility] Default [address], [place] [address]VJBYKHYUXY NOTENormalNoFostoria City Hospital SpecialistComment on above:Order Comment: [facility] performed at: [facility], [facility], [address] [facility], [address] [place] [address], [address] [place] [address], Pharmacognosist: Michael Grewal MD [facility] Collection Date/Time: [facility] Results Received Date/Time: [facility] Reported Date/Time: FASTING: NOResult Comment: The analytical performance characteristics of this assay, when used to test SurePath(TM) specimens have been determined by [facility]. The modifications have not been cleared or approved by the FDA. This assay has been validated pursuant to the CLIA regulations and is used for clinical purposes. For additional information, please refer to https://education.[employer]/faq/BUU041 (This link is being provided for information/ educational purposes only.)Performed By: #### [id number], %SBNOCULI, 3020X #### [facility] Default [address] [place], [place] [address]XLCNOSMRL GONORRHOEAE RNA, TMA, UROGENITALNot detectedNormalNOT DETECTEDNoMercy Health St. Elizabeth Youngstown HospitalComment on above:Order Comment: [facility] Testing performed at: [facility], [facility], [address] [facility], [address] [place] [address], [address] [place] [address], Pharmacognosist: Michael Grewal MD [facility] Collection Date/Time: [facility] Results Received Date/Time: [facility] Reported Date/Time: FASTING: NOPerformed By: #### [id number], %SBNOCULI, 3020X #### [facility] Default [address] [place], [place] [address]A - UR CULT REFLEXon [id number] URINE CULTURESEE NOTE NormalTrinity Health [facility] SpecialistComment on above:Order Comment: [facility] Testing performed at: [facility], [facility], [address] [facility], [address] [place] [address], [address] [place] [address], Pharmacognosist: Michael Grewal MD [facility] Collection Date/Time: [facility] Results Received Date/Time: [facility] Reported Date/Time: FASTING: NOResult Comment: NO CULTURE INDICATEDPerformed By: #### [id number], %SBNOCULI, 3020X #### [facility] Default [address] [place], [place] [address]H - URINALYSIS,COMPLETE,WITH REFLEX TO CULTUREon 11-02-2021 Appearance (U)CLEARNormalCLEARTrinity Health System [facility] City [facility] SpecialistComment on above: Order Comment: [facility] performed at: [facility], [facility], [address] [place] [address], [address] [place] [address], [address] [place] [address], Pharmacognosist: Michael Grewal MD [facility] Collection Date/Time: [facility] Results Received Date/Time: [facility] Reported Date/Time: FASTING: NOPerformed By: #### [id number], %SBNOCULI, 3020X #### [facility] Default [address] [place], [place] [address]PLLXRSFDRQOU SEENNormalNONE SEENTrinity Health System [facility] Specialist Comment on above:Order Comment: [facility] performed at: [facility], [facility], [address] [facility], [address] [place] [address], [address] [place] [address], Pharmacognosist: Michael Grewal MD [facility] Collection Date/Time: [facility] Results Received Date/Time: [facility] Reported Date/Time: FASTING: NOPerformed By: #### [id number], %SBNOCULI, 3020X #### [facility] Default [address] [place], [place] [address]Twgoffvad Ql (U)NegativeNormalNEGATIVENortdignity health east [facility]bertn [facility] SpecialistComment on above:Order Comment: [facility] Testing performed at: [facility], [employer] [facility], [address] , [address] [place] [address], [address] [place] [address], Pharmacognosist: Michael Grewal MD [facility] Collection Date/Time: [facility] Results Received Date/Time: [facility] Reported Date/Time: FASTING: NOPerformed By: #### [id number], %SBNOCULI, 3020X #### [facility] Default [address] [place], [place] [address]Huqvc (U)YELLOWNormalYELLOWrtUC West Chester HospitalDirector Financial Systems Comment on above:Order Comment: [facility] Testing performed at: [facility], [employer] [facility], [address] , [address] [place] [address], [address] [place] [address], Pharmacognosist: Michael Grewal MD [facility] Collection Date/Time: [facility] Results Received Date/Time: [facility] Reported Date/Time: FASTING: NOPerformed By: #### [id number], %SBNOCULI, 3020X #### [facility] Default [address] [place], [place] [address]Qiyxbpd Ql (U)NegativeNormalNEGATIVErtSelect Medical [facility], [facility] Medical SpecialistComment on above:Order Comment: [facility] Testing performed at: [facility], [facility], [address] , [address] [place] [address], [address] [place] [address], Pharmacognosist: Michael Grewal MD [facility] Collection Date/Time: [facility] Results Received Date/Time: [facility] Reported Date/Time: FASTING: NOPerformed By: #### [id number], %SBNOCULI, 3020X #### [facility] Default [address] [place], [place] [address]BUAQRJV CASTNONE SEENNormalNONE SEENTrinity Health System [facility] SpecialistComment on above:Order Comment: [facility] Testing performed at: [employer], [facility], [address] [place] [address], [address] [place] [address], [address] [place] [address], Pharmacognosist: Michael Grewal MD [facility] Collection Date/Time: [facility] Results Received Date/Time: [facility] Reported Date/Time: FASTING: NOPerformed By: #### [id number], %SBNOCULI, 3020X #### [facility] Default [address] [place], [place] [address]Nfvbnlk Ql (U)NegativeNormalNEGKettering Health SpecialistComment on above:Order Comment: [facility] Testing performed at: [facility], [facility], [address] [place] [address], [address] [place] [address], [address] [place] [address], Pharmacognosist: Michael Grewal MD [facility] Collection Date/Time: [facility] Results Received Date/Time: [facility] Reported Date/Time: FASTING: NOPerformed By: #### [id number], %SBNOCULI, 3020X #### [facility] Default [address] [place], [place] [address]Acxqkwvyr esterase Test strip Ql (U)NegativeNormalNEGATIVE Ohiohealth Berger HospitalComment on above:Order Comment: [facility] Testing performed at: [employer], [facility], [address] [place] [address], [address] [place] [address], [address] [place] [address], Pharmacognosist: Michael Grewal MD [facility] Collection Date/Time: [facility] Results Received Date/Time: [facility] Reported Date/Time: FASTING: NOPerformed By: #### [id number], %SBNOCULI, 3020X #### [facility] Default [address] [place], [place] [address]Mluulpo Ql (U)NegativeNormalNEGATIVETrinity Health System [facility] SpecialistComment on above:Order Comment: [facility] Testing performed at: [employer], [facility], [address] [facility], [address] [place] [address], [address] [place] [address], Pharmacognosist: Michael Grewal MD [facility] Collection Date/Time: [facility] Results Received Date/Time: [facility] Reported Date/Time: FASTING: NOPerformed By: #### [id number], %SBNOCULI, 3020X #### [facility] Default [address] [place], [place] [address]SGMADK BLOODNegativeNormalNEGATIVENoFostoria City Hospital SpecialistComment on above:Order Comment: [facility] Testing performed at: [facility], [facility], [address] [facility], [address] [place] [address], [address] [place] [address], Pharmacognosist: Michael Grewal MD [facility] Collection Date/Time: [facility] Results Received Date/Time: [facility] Reported Date/Time: FASTING: NOPerformed By: #### [id number], %SBNOCULI, 3020X #### [facility] Default [address] [place], [place] [address]qH (U)6.5 [pH]Normal5.0-8.0NoThompson Memorial Medical Center Hospital Director Financial Systems Comment on above:Order Comment: [facility] Testing performed at: [facility], [facility], [address] [place] [address], [address] [place] [address], [address] [place] [address], Pharmacognosist: Michael Grewal MD [facility] Collection Date/Time: [facility] Results Received Date/Time: [facility] Reported Date/Time: FASTING: NOPerformed By: #### [id number], %SBNOCULI, 3020X #### [facility] Default [address] [place], [place] [address]Trvatce Ql (U)NegativeNormalNEGATIVENortSelect Medical Specialty [facility], [facility] Medical SpecialistComment on above:Order Comment: [facility] Testing performed at: [facility], [facility], [address] [facility], [address] [place] [address], [address] [place] [address], Pharmacognosist: Michael Grewal MD [facility] Collection Date/Time: [facility] Results Received Date/Time: [facility] Reported Date/Time: FASTING: NOPerformed By: #### [id number], %SBNOCULI, 3020X #### [facility] Default [address] [place], [place] [address]GVFVPIJ SEENNormal< OR = 2[facility] SpecialistComment on above:Order Comment: [facility] Testing performed at: [facility], [facility], [address] [facility], [address] [place] [address], [address] [place] [address], Pharmacognosist: Michael Grewal MD [facility] Collection Date/Time: [facility] Results Received Date/Time: [facility] Reported Date/Time: FASTING: NOPerformed By: #### [id number], %SBNOCULI, 3020X #### [facility] Default [address] [place], [place] [address]Bvzsdsri gravity (U) [Rel density]1.933Lremfg6.001-1.035Nortdignity health east valley rehabilitation hospital - gilbertn [facility] SpecialistComment on above:Order Comment: [facility] Testing performed at: [facility], [facility], [address] [facility], [address] [place] [address], [address] [place] [address], Pharmacognosist: Michael Grewal MD [facility] Collection Date/Time: [facility] Results Received Date/Time: [facility] Reported Date/Time: FASTING: NOPerformed By: #### [id number], %SBNOCULI, 3020X #### [facility] Default [address] [place], [place] [address]AORXNVDO EPITHELIAL CELLSNONE SEENNormal< OR = 5[facility] SpecialistComment on above:Order Comment: [facility] Testing performed at: [employer], [facility], [address] [facility], [address] [place] [address], [id number], Pharmacognosist: Michael Grewal MD [facility] Collection Date/Time: [facility] Results Received Date/Time: [facility] Reported Date/Time: FASTING: NOPerformed By: #### [id number], %SBNOCULI, 3020X #### [facility] Default [address] [place], [place] [address]JRLFBHT SEENNormal< OR = 5[facility] SpecialistComment on above:Order Comment: [facility] Testing performed at: [facility], [facility], [address], [address] [facility], [place], [address], Pharmacognosist: Michael Grewal MD [facility] Collection Date/Time: [facility] Results Received Date/Time: [facility] Reported Date/Time: FASTING: NOPerformed By: #### [id number], %SBNOCULI, 3020X #### [facility] Default [address] [place], [place] [address]FX Foot 2 Views Righton [id number] Foot 2 Views RightHISTORY: Fall x 5 days FINDINGS: No cortical or stress fracture or evidence of fracture healing. No focal soft tissue swelling. Minimal arthritis. IMPRESSION: 1. No fracture. Report reported and signed by Dakota Horowitz on 11/02/2021 1540NormalNorthern Milford HospitalCULTURE URINEon [id number] URINECulture Observations: GB STREP FAXED ER/NOTFD KAL@1015/11/01/21/RK Isolate 1 [...] 0.5 S F Tetracycline >=16 R FNormalThe [facility] County [facility] Hospital - WestComment on above:Performed By: #### ERUR #### [facility] [address] [place] [address] Dr. Nick Musa AUTO DIFFon [id number] #0.0 103/ulNormal0.0-0.1The [facility] - WestComment on above:Performed By: #### ERUR #### [facility] [address] [place] [address] Dr. Nick PerezBasophils/100 WBC (Bld)0.2 %Normal0.2-2.0The [facility] Comment on above:Performed By: #### ERUR #### [facility] [address] [place] [address] Dr. Nick Ledesma #0.1 103/ulNormal0.0-0.7The [facility] Hospital - WestComment on above: Performed By: #### ERUR #### [facility] [address] [place] [address] Dr. Nick Pickardosinophils/100 WBC (Bld)0.5 %Critically low0.9-7.0The [facility] Hospital - WestComment on above:Performed By: #### ERUR #### [facility] [address] [place] [address] Dr. Nick Pickardrythrocyte distribution width (RBC) [Ratio]13.5 %Deohmg97.0-15.0 [facility], BeachwoodComment on above:Performed By: #### ERUR #### [facility] [address] [place] [address] Dr. Nick PerezHematocrit (Bld) [Volume fraction]45.9 %Xoimzr53.0-48.0[facility], BeachwoodComment on above:Performed By: #### ERUR #### [facility] [address] [place] [address] Dr. Nick PerezHemoglobin (Bld) [Mass/Vol]15.5 g/iNWpyjko49.0-16.0[facility], BeachwoodComment on above:Performed By: #### ERUR #### [facility] [address] [place] [address] Dr. Nick Booth #0.08 10e3/ulCritically high0.00-0.03The [facility] Comment on above:Performed By: #### ERUR #### [facility] [address] [place] [address] Dr. Nick Booth %0.5 %Normal0.0-0.5The [facility] - WestComment on above: Performed By: #### ERUR #### [facility] [address] [place] [address] Dr. Nick Starr #3.1 103/ulNormal1.2-3.8The Sanger HospitalComment on above:Performed By: #### ERUR #### [facility] [address] [place] [address] Dr. Nick Diegohocytes/100 WBC (Bld)17.3 %Critically low20.5-60.0The [facility] - WestComment on above:Performed By: #### ERUR #### [facility] [address] [place] [address] Dr. Nick PetersonUAL DIFF REQNONormalThe [facility] - WestComment on above: Performed By: #### ERUR #### [facility] [address] [place] [address] Dr. Nick Galindo (RBC) [Entitic mass]33.3 qfFlrwco68.7-34.0The [facility] - WestComment on above:Performed By: #### ERUR #### [facility] [address] [place] [address] Dr. Nick Roe (RBC) [Mass/Vol]33.8 g/mGBkfapy67.9-35.2The [facility] - WestComment on above:Performed By: #### ERUR #### [facility] [address] [place] [address] Dr. Nick Hoover (RBC) [Entitic vol]98.7 kVYunwbu56.0-99.0The [facility] - WestComment on above:Performed By: #### ERUR #### [facility] [address] [place] [address] Dr. Nick Taylor #0.5 103/ulNormal0.3-0.8The [facility] - WestComment on above:Performed By: #### ERUR #### [facility] [address] [place] [address] Dr. Nick Gusmanocytes/100 WBC (Bld)3.0 %Normal1.7-12.0[facility] Comment on above:Performed By: #### ERUR #### [facility] [address] [place] [address] Dr. Nick Bunch #13.9 103/ulCritically high1.4-6.5The [facility] Comment on above:Performed By: #### ERUR #### [facility] [address] [place] [address] Dr. Nick Villautrophils/100 WBC (Bld)78.5 %Critically high43.0-75.0The [facility] - WestComment on above:Performed By: #### ERUR #### [facility] [address] [place] [address] Dr. Nick Jones mean volume (Bld) [Entitic vol]9.2 fLCritically low 9.5-13.5The [facility] - WestComment on above:Performed By: #### ERUR #### [facility] [address] [place] [address] Dr. Nick PerezPLT346 103/ojPasown984-810Mlg [facility] - WestComment on above: Performed By: #### ERUR #### [facility] [address] [place] [address] Dr. Nick PerezRBC4.65 106/ulNormal4.20-5.40The [facility] - WestComment on above:Performed By: #### ERUR #### [facility] [address] [place] [address] Dr. Nick PerezWBC17.7 103/ulCritically high4.0-11.0The [facility] - WestComment on above:Performed By: #### ERUR #### [facility] [address] [address] [address] Nick Sousa ABD/PELVIS WO CONon [id number] ABD/PELVIS WO CONEXAMINATION: CT ABD/PELVIS WO CON, [...] Electronically authenticated by: DIANA GODOY Date: 2021-10-29 11:03[facility] URINE PROFILEon 79-87-7875Kxzmckyxr Ql (U)NegativeNormal NEGATIVESelect Medical [facility] Hospital, BeachwoodComment on above:Performed By: #### CHRISTIANO ERUR #### [facility] [address] [address] [address] Nick Barkerarity (U)CLEARNormalCLEARSelect Medical [facility] Hospital, BeachwoodComment on above: Performed By: #### CHRISTIANO, ERUR #### [facility] [address] [address] [address] Nick Otero (U)LT. YELLOWNormalYELLOWSelect Medical [facility] Rehabilitation Hospital, BeachwoodComment on above:Performed By: #### CHRISTIANO ERUR #### [facility] [address] [address] [address] Nick Schmid micrscopic examination will be performed if indicated. NormalSelect Medical [facility] Rehabilitation Hospital, BeachwoodComment on above:Performed By: #### CHRISTIANO ERUR #### [facility] [address] [address] [address] Nick PerezGlucose Ql (U)NegativeNormalNEGATIVESelect Medical [facility] Hospital, BeachwoodComment on above:Performed By: #### CHRISTIANO ERUR #### [facility] [address] [address] [address] Nick PerezHemoglobin Ql (U)LARGEAbnormalNEGATIVEOhiohealth Shelby Hospital on above:Performed By: #### CHRISTIANO, ERUR #### [facility] [address] [address] [address] Nick PerezKetones Ql (U)NegativeNormalNEGATIVESelect Medical [facility], BeachwoodComment on above:Performed By: #### CHRISTIANO ERUR #### [facility] [address] [address] [address] Nick MinerOCYTESLARGEAbnormalNEGATIVESelect Medical [facility], BeachwoodComment on above:Performed By: #### CHRISTIANO ERUR #### [facility] [address] [address] [address] Nick Mckay Ql (U)NegativeNormalNEGATIVEThe [facility] - WestComment on above:Performed By: #### CHRISTIANO ERUR #### [facility] [address] [place] [address] Dr. Nick PerezpH (U)7.0 [pH]Normal5-9[facility], BeachwoodComment on above: Performed By: #### CHRISTIANO ERUR #### [facility] [address] [place] [address] Dr. Nick PerezSPEC GRAVITY<=1.547Xfikqtwu4.005-<=1.025The [facility] Comment on above:Performed By: #### CHRISTIANO ERUR #### [facility] [address] [place] [address] Dr. Nick Pierre PROTEINNegativeNormalNEGATIVE/ TRACEThe [facility] Comment on above:Performed By: #### CHRISTIANO ERUR #### [facility] [address] [place] [address] Dr. Nick PerezUR MICRO INDINDICATEDNormalThe [facility] Hospital - WestComment on above: Performed By: #### HUBERT ALVARADOR #### [facility] [address] [place] [address] Dr. Nick Ballesterosgen Qn (U)0.2 {Ta'U}/dLNormal0.2 - 1.0[facility], BeachwoodComment on above:Performed By: #### CHRISTIANO ERUR #### [facility] [address] [place] [address] Dr. Nick PerezPROF CHEM 8 (BAS METB)on 44-45-4823Jvrno gap [Moles/Vol]13.0 mmol/LNormalThe [facility] - WestComment on above:Performed By: #### ERUR #### [facility] [address] [place] [address] Dr. Nick PerezCalcium [Mass/Vol]9.0 mg/dLNormal8.4-10.2[facility] [place] Comment on above:Performed By: #### ERUR #### [facility] [address] [address] [address] Nick PerezChloride [Moles/Vol]98 mmol/OGeqfsb28-582Noc [facility] Comment on above:Performed By: #### ERUR #### [facility] [address] [address] [address] Nick PerezCO2 [Moles/Vol]26.7 mmol/KAwecwj23.0-30.0The [facility] Comment on above:Performed By: #### ERUR #### [facility] [address] [address] [address] Nick PerezCreatinine [Mass/Vol]0.62 mg/dLNormal0.52-1.04The [facility] - WestComment on above:Performed By: #### ERUR #### [facility] [address] [place] [address] Dr. Romero ChangEGFR-AF LIBERIAN>60Normal>=60The [facility] - WestComment on above:Performed By: #### ERUR #### [facility] [address] [address] [address] Nick PickardGFR-NON AF LIBERIAN>60Normal>=60The [facility] - WestComment on above:Performed By: #### ERUR #### [facility] [address] [address] [address] Nick PerezGlucose [Mass/Vol]109 mg/dLCritically vmit90-894Mlf [facility] - WestComment on above:Performed By: #### ERUR #### [facility] [address] [address] [address] Nick PerezPotassium [Moles/Vol]3.7 mmol/LNormal3.4-5.0The [facility] Comment on above:Performed By: #### ERUR #### [facility] [address] [address] [address] Nick PerezSodium [Moles/Vol]134 mmol/LCritically klb202-912Zal [facility] - WestComment on above:Performed By: #### ERUR #### [facility] [address] [address] [address] Nick Dee nitrogen [Mass/Vol]6.0 mg/dLCritically low7.0-17.0The [facility] on above:Performed By: #### ERUR #### [facility] [address] [address] [address] Nick Dee nitrogen/Creatinine [Mass ratio]9.7 mg/mgNoThe Bellevue HospitalComment on above:Performed By: #### ERUR #### [facility] [address] [place] [address] Dr. Nick Downs MICROSCOPIC ONLYon [id number]rbjpdDRJW SEEN [facility] on above:Performed By: #### ERUR #### [facility] [address] [place] [address] Dr. Nick Matthews identified Cx Nom (U)INDICATEDGalion HospitalComaspirus [facility] on above:Performed By: #### ERUR #### [facility] [address] [place] [address] Dr. Nick Hollingsworth SEENNormalNONE SEENSelect [facility], BeachwoodComaspirus [facility] on above:Performed By: #### ERUR #### [facility] [address] [place] [address] Dr. Nick Unger LM Nom (Urine sed)NONE SEENNormalNONE SEENSelect [facility], BeachwoodComasp[facility] on above:Performed By: #### ERUR #### [facility] [address] [place] [address] Dr. Nick Benavidesthelial cells LM Ql (Urine sed)FEWAbnormalNONE SEEN /RAREThe [facility] on above:Performed By: #### ERUR #### [facility] [address] [place] [address] Dr. Nick OrellanaE SEENTwo Rivers Psychiatric HospitalalNONE SEENSelect [facility], BeachwoodComaspirus [facility] on above:Performed By: #### ERUR #### [facility] [address] [place] [address] Dr. Nick PerezXazpvOFP48-71Zucnvjzy8-6Lgf [facility] on above: Performed By: #### ERUR #### [facility] [address] [place] [address] Dr. Nick PerezElsspENO22-55ZkywksqmOAAQ SEENThe [facility] WestComment on above: Performed By: #### ERUR #### [facility] [address] [place] [address] Dr. Nick Perez Vital Signs Date TimeVital SignValuePerforming XpjwodttoKvonpxwe89-09-1412 16:21-0400Body mass index (BMI) [Ratio]28.49 kg/r0RldzoerrJanina Sosahart FLOOR FINISHER Work Phone: [phone] HospitalOlmbhesrpp97-87-6161 16:21-0400Body temperature 97.3 [degF]Janina Sosahart FLOOR FINISHER Work Phone: [phone] HospitalOibrtpzqqu98-20-3170 16:21-0400Body pjyicl21.3 kg Janina Mustafat FLOOR FINISHER Work Phone: [phone] HospitalCraltyvcti44-04-3644 16:21-0400Diastolic blood wrtjatzs67 mm[Hg]Janinaconnie Sosahart FLOOR FINISHER Work Phone: [phone] HospitalHcqhfbiaph31-36-6215 16:21-0400Heart rate80 /min Janina Sosahart FLOOR FINISHER Work Phone: [phone] HospitalZanfpyqwre94-45-2613 16:-4372WmX4% (BldA) [Mass fraction]97 %Janina Sosahart FLOOR FINISHER Work Phone: [phone] HospitalVfomrutuew58-72-5769 16:21-0400Systolic blood mm[Hg]Janinaconnie Sosahart FLOOR FINISHER Work Phone: [phone] HospitalKjdhnepeni68-42-6660 15:26-0400Body rnodip256.6 cmBreann Majors FLOOR FINISHER Work Phone: [phone] HospitalJrxqzykvvv93-16-4331 15:26-0400Body mass index (BMI) [Ratio]28.43 kg/j5Dauqpg Majors FLOOR FINISHER Work Phone: [facility] HospitalQkojwgvlub38-38-6121 15:26-0400Body temperature 98.71 [degF]Anaya Morton FLOOR FINISHER Work Phone: [phone] [place], [place] [address]Lxxcikkksg46-36-4703 15:26-0400Body fmeens00.12 kgAnaya Morton FLOOR FINISHER Work Phone: 1(377)[facility] [place], [place] [address]Igbkkhfngj88-04-8496 15:26-0400Diastolic blood oaddwjej43 mm[Hg]Anaya Morton FLOOR FINISHER Work Phone: 1(557)[facility] [place], [place] [address]Ydgvjoptao05-35-2791 15:26-0400Heart rate70 /min Anaya Morton FLOOR FINISHER Work Phone: 1(357)[facility] [place], [place] [address]Mchzgaqknv03-36-6905 15:26-8367EfF3% (BldA) [Mass fraction]96 %Anaya Morton FLOOR FINISHER Work Phone: 1([phone])[facility] [place], [place] [address]Zcdwyuiner45-71-6106 15:26-0400Systolic blood mbvwzkle761 mm[Hg]Anaya Morton FLOOR FINISHER Work Phone: 1(630)[facility] [place], [place] [address]Dxizgzlfyk03-57-4208 15:35-0400Body bneuwg134.6 cmJaniya Raygoza MD Work Phone: 1(285)[facility] [place], [place] [address]Uwngbzhati76-41-9539 15:35-0400Body mass index (BMI) [Ratio]28.84 kg/m2Janiya Raygoza MD Work Phone: [phone] [place], [place] [address]Hrbkwxankg78-89-7724 15:35-0400Body bgiarv66.2 kg Janiya Raygoza MD Work Phone: 1(113)[facility] [place], [place] [address]Bwgimwvsgo90-03-4851 15:35-0400Diastolic blood gtiqotja72 mm[Hg]Janiya Raygoza MD Work Phone: 1(541)[facility] [place], [place] [address]Rtwddziwzw80-62-2983 15:35-0400Heart rate80 /min Janiya Raygoza MD Work Phone: 1(355)[facility] [place], [place] [address]Bsdlmfncnb68-84-7245 15:35-0400Respiratory rate18 /minJaniya Raygoza MD Work Phone: 1(442)[facility] [place], [place] [address]Xowjtfozbp78-33-1688 15:35-0400Systolic blood gipdqbge991 mm[Hg]Janiya Raygoza MD Work Phone: [facility] HospitalTdveeirttn34-11-9672 15:55-0400Body oixzfj058.6 Angelo Kelley MD Work Phone: bon [facility]05-20-2025 15:55-0400Body mass index (BMI) [Ratio]30.9 kg/i8MkloqbfKiet Kelley MD Work Phone: Vou [facility]05-20-2025 15:55-0400Body fpwavccpuzu69.5 [degF]Kiet Kelley MD Work Phone: bon [facility]05-20-2025 15:55-0400Body .65 kgKiet Kelley MD Work Phone: bon [facility]05-20-2025 15:55-0400Diastolic blood mm[Hg]Kiet Kelley MD Work Phone: bon [facility]05-20-2025 15:55-0400Heart rate73 /minKiet Kelley MD Work Phone: bon [facility]05-20-2025 15:55-0400 Respiratory rate18 /minKiet Kelley MD Work Phone: bon [facility]05-20-2025 15:55-5185AoS4% (BldA) [Mass fraction]98 %iKet Kelley MD Work Phone: Cul [facility]05-20-2025 15:55-0400Systolic blood fzhrsdio246 mm[Hg]Kiet Kelley MD Work Phone: bon [facility]01-09-2025 14:54-0500Body nquzvw227.6 Danilo MCLEOD Work Phone: noFreeman [facility] InstituteDajvbfjzmg96-83-2782 14:54-0500Body mass index (BMI) [Ratio]29.49 kg/m2Amy Reeseville PA Work Phone: [facility] HospitalAeavkihdal72-70-3438 14:54-0500Body .93 kgLauryn Booker PA Work Phone: [facility] HospitalTtjyxnzhgj88-40-3150 14:54-0500Diastolic blood izbqaeaf92 mm[Hg]Lauryn Booker PA Work Phone: [facility] HospitalQvctvndwwy14-06-9566 14:54-0500Systolic blood jpvubcsx809 mm[Hg]Lauryn Booker PA Work Phone: [facility] HospitalNrpaxgqssp59-18-0589 08:02-0500Body .4 cmChristwaleska KingSchultz FLOOR FINISHER Work Phone: [facility] HospitalFsutkbropo84-47-2334 08:02-0500Body mass index (BMI) [Ratio]26.06 kg/x8Voeyzjh Schultz FLOOR FINISHER Work Phone: [facility] HospitalIfhdtzxsuc11-89-3334 08:02-0500Body jlgobt30.12 kgChristy Schultz FLOOR FINISHER Work Phone: [facility] HospitalXwjhxogurk21-54-9011 08:02-0500Diastolic blood nlawzwad31 mm[Hg]Sarah Schultz FLOOR FINISHER Work Phone: [facility] HospitalDqafigopml45-67-0889 08:02-0500Heart rate68 /min Sarah Schultz FLOOR FINISHER Work Phone: [facility] HospitalAlknuqgyrq04-39-6079 08:02-0500Respiratory rate18 /minChristy Schultz FLOOR FINISHER Work Phone: [place] [address]Ntwklyxgvu62-32-6078 08:02-4607JkD5% (BldA) [Mass fraction]98 %Sarah Schultz FLOOR FINISHER Work Phone: [facility] HospitalXgqjddlgyd68-80-2141 08:02-0500Systolic blood zxfpyawd220 mm[Hg]Sarah Cshultz FLOOR FINISHER Work Phone: [facility] HospitalLrnhgtmwfm21-57-7249 14:22-3960CkP9% (BldA) [Mass fraction]96 %Veselin [place] MD Work Phone: bon [employer] [facility] ClinicOnepager [facility] HospitalSame Day ServesKlblgn97-45-3930 13:22-0500Diastolic blood qlizmcdt28 mm[Hg]Kiet Kelley MD Work Phone: bon [employer] [facility] ClinicOnepager [facility] HospitalVisionarity Suxzgf37-76-3464 13:22-0500Systolic blood mqpdsozu599 mm[Hg]Kiet Kelley MD Work Phone: bSentara CarePlex HospitalOnepager [facility] HospitalSame Day ServesDvkzbs61-79-3333 13:09-0500Body uxehkhjygoj76.49 [degF]Kiet Kelley MD Work Phone: bon [employer] [facility] ClinicOnepager [facility] HospitalSame Day ServesLircec10-94-0359 13:02-0500Body .6 Angelo Kelley MD Work Phone: bon [employer] [facility] ClinicOnepager [facility] CenterTnwgvw17-86-5080 13:02-0500Body mass index (BMI) [Ratio]27.46 kg/b9SgsjpxcKiet Kelley MD Work Phone: bon [employer] [facility] ClinicOnepager [facility] HospitalVisionarity Ooauhn83-69-8601 13:02-0500Body tmppcu80.58 kgKiet Kelley MD Work Phone: bon [employer] [facility] ClinicOnepager [facility] HospitalSame Day ServesKqnpmb37-48-3650 13:02-0500Heart rwrw763 /minKiet Kelley MD Work Phone: bon [employer] [facility] ClinicOnepager [facility] HospitalSame Day ServesKhuoqt46-79-2553 13:02-0500 Respiratory rate18 /minKiet Kelley MD Work Phone: bon [employer] [facility] ClinicOnepager [facility] HospitalSame Day ServesEtzeet76-77-2483 09:57-0400Body jlmbed119.6 Angelo Kelley MD Work Phone: bon [facility] CENTERDesignMyNight09-13-2024 09:57-0400Body mass index (BMI) [Ratio]25.75 kg/i8InbenvfKiet Kelley MD Work Phone: bon [facility] CENTERDesignMyNight09-13-2024 09:57-0400Body eqjtceockau72.01 [degF]Kiet Kelley MD Work Phone: bon [facility]09-13-2024 09:57-0400Body vwbtyb39.04 kgKiet Kelley MD Work Phone: bon [facility]09-13-2024 09:57-0400Diastolic blood yxdjmehj51 mm[Hg]Kiet Kelley MD Work Phone: bon [facility]09-13-2024 09:57-0400Heart rate93 /Mayco Kelley MD Work Phone: bon [facility]09-13-2024 09:57-0400 Respiratory rate19 /Mayco Kelley MD Work Phone: bon [facility]09-13-2024 09:57-2701GkM7% (BldA) [Mass fraction]99 %Kiet Kelley MD Work Phone: bon [facility]09-13-2024 09:57-0400Systolic blood jlyavcjq973 mm[Hg]Kiet Kelley MD Work Phone: bon [facility]06-28-2024 20:22-0400Body mbvuduayirw24.7 [degF]Hernandez Dave [facility]06-28-2024 20:22-0400 Diastolic blood mm[Hg]Hernandez Dave [facility]06-28-2024 20:22-0400Heart jgdz994 /minNorosibel Dave [facility]06-28-2024 20:22-0400 Respiratory rate18 /minNoah Dave [facility]06-28-2024 20:22-0118NhT8% (BldA) [Mass fraction]97 %Hernandez Dave [facility]06-28-2024 20:22-0400 Systolic blood mqimehlj571 mm[Hg]Hernandez Acosta [facility]04-29-2024 13:18-0400Body ubaxtqwhqmw17.4 [degF]Erwin Dalal MD Work Phone: BON [facility]04-29-2024 13:18-0400Diastolic blood qeaamhjx72 mm[Hg]Erwin Dalal MD Work Phone: BON [facility]04-29-2024 13:18-0400Heart rate68 /David Dalal MD Work Phone: [facility]04-29-2024 13:18-0400 Respiratory rate20 /David Dalal MD Work Phone: BON [facility]04-29-2024 13:18-8181TvC1% (BldA) [Mass fraction]99 %Erwin Dalal MD Work Phone: BON [facility]04-29-2024 13:18-0400Systolic blood mm[Hg]Erwin Dalal MD Work Phone: BON [facility]04-16-2024 13:31-0400Body yttqvtrwcws13.06 [degF]Bari Alicea [facility]04-16-2024 13:31-0400 Diastolic blood mm[Hg]Bari Alicea [facility]04-16-2024 13:31-0400Heart yihg923 /Micky Alicea [facility]04-16-2024 13:31-0400 Respiratory rate16 /minBari Alicea [facility]04-16-2024 13:31-9316ZxM9% (BldA) [Mass fraction]98 %Bari Alicea [address] [place], [place] 480[address]204-16-2024 13:31-0400 Systolic blood mm[Hg]Bari Alicea [address] [place], [place] 9902003-27-2024 10:34-0400Heart rate68 /bryannaColby Sky [address] [place], [place] 9902003-27-2024 10:34-0400 Respiratory rate18 /minColby Sky [address] [place], [place] 9902003-27-2024 10:25-0400Heart rate80 /bryannaColby Sky [address]03-27-2024 10:25-0400 Respiratory rate18 /bryannaColby Sky [address] [place], [place] 4809203-27-2024 10:14-0400Body ryuohkabqky09.06 [degF]Colby Sky [address] [place], [place] 4809203-27-2024 10:14-0400 Diastolic blood ybqzfcrt47 mm[Hg]Colby Sky [address]03-27-2024 10:14-0400Heart rate63 /bryannaColby Sky [address] [place], [place] 9902003-27-2024 10:14-0400 Respiratory rate18 /bryannaColby Sky [address] [place], [place] 9902003-27-2024 10:14-8106QbR7% (BldA) [Mass fraction]98 %Colby Sky [address] [place], [place] 9902003-27-2024 10:14-0400 Systolic blood fhmtiitv754 mm[Hg]Colby Sky [address] [place], [place] 9902012-12-2023 14:14-0500 Diastolic blood mm[Hg]Bari Alicea [address] [place], [place] 9902012-12-2023 14:14-0500Heart rate56 /Micky Alicea [address]12-12-2023 14:14-0500 Respiratory rate16 /Micky Alicea [address] [place], [place] [address]902012-12-2023 14:14-2597BfL3% (BldA) [Mass fraction]98 %Bari Alicea [address]12-12-2023 14:14-0500 Systolic blood tqawccuy540 mm[Hg]Bari Alicea [address]12-12-2023 13:15-0500 Diastolic blood ecctomvq87 mm[Hg]Bari Alicea [address]12-12-2023 13:15-0500Heart rate63 /Micky Alicea [address]12-12-2023 13:15-0500Mean blood bqrppeoj01 mm[Hg]Bari Alicea [address]12-12-2023 13:15-0500 Respiratory rate16 /Micky Alicea [address]12-12-2023 13:15-2550EpR8% (BldA) [Mass fraction]98 %Bari Alicea [address] [place], [place] 9902012-12-2023 13:15-0500 Systolic blood uhkywudo074 mm[Hg]Bari Alicea [address] [place], [place] [address]2012-12-2023 12:55-0500Body .7 [degF]Bari Alicea [address]12-12-2023 12:55-0500 Diastolic blood mm[Hg]Bari Alicea [address]12-12-2023 12:55-0500Heart rate72 /minBari Alicea [facility]12-12-2023 12:55-0500 Respiratory rate18 /minBari Alicea [facility]12-12-2023 12:55-5347ChR1% (BldA) [Mass fraction]99 %Bari Alicea [facility]12-12-2023 12:55-0500 Systolic blood rxqnxqav503 mm[Hg]Bari Alicea [facility]09-17-2023 11:21-8708AsZ0% (BldA) [Mass fraction]98 %Alvaro Alonso MD Work Phone: [facility] WJLEQN12-57-7108 10:45-0400Body hkurig241.6 cmAlvaro Alonso MD Work Phone: [phone])9645000B[facility]Inc [facility]OSPITALLoopbackQTBOUF46-82-5547 10:45-0400Body mass index (BMI) [Ratio]24.03 kg/r2TbdheAlvaro Alonso MD Work Phone: [phone] SECDesignMyNight09-17-2023 10:45-0400Body tcoqjpwthle01.8 [degF]Alvaro Alonso MD Work Phone: 1(427)9645000BON SECMobileIgniter ST[facility]LES HOSPITALLoopbackYIARIG64-94-3703 10:45-0400Body qwehza41.5 kgAlvaro Alonso MD Work Phone: 1(412)9645000BON SECDesignMyNight09-17-2023 10:45-0400Diastolic blood ptgwnmyh66 mm[Hg]Alvaro Alonso MD Work Phone: [phone] [employer] Everywhere09-17-2023 10:45-0400Heart rate74 /Catarino Alonso MD Work Phone: 1(224)9645000BON SECDesignMyNight09-17-2023 10:45-0400 Respiratory rate20 /Catarino Alonso MD Work Phone: 1(018)9645000BON SECMobileIgniter [facility]OSPITALLoopbackXZLLFY27-09-3723 10:45-0400Systolic blood ahblklhf460 mm[Hg]Alvaro Alonso MD Work Phone: [facility]08-21-2023 13:32-0400Body kmetcx708.56 cmJaniya Raygoza Work Phone: 1(416) [phone]-[facility]npDavis [facility] 120 Work Phone: 1(856) 222-655908-21-2023 13:32-0400Body mass index (BMI) [Ratio] 25.09 kg/m2Janiya Raygoza Work Phone: 1(856) [phone]-[place]jgjJam[place] [address] Work Phone: 1(916) 678-290008-21-2023 13:32-0400Body surface area Derived from formula1.71 m2Janiya Raygoza Work Phone: 1(770) [phone]-[place]wu[place] [address] Work Phone: 1(584) 708-717308-21-2023 13:32-0400Body jnbedd58.3 kgJaniya Raygoza Work Phone: 1(159) 519-7652503-1994IC-PgrhJam[place] [address] Work Phone: 1(799) 614-642102-16-2023 06:00-0500Body uhipfcnsfho24.5 [degF]MD Janiya Raygoza Work Phone: [facility]02-16-2023 06:00-0500 Diastolic blood gvoxfcfc58 mm[Hg]MD Janiya Raygoza Work Phone: [facility]02-16-2023 06:00-0500 Heart rate60 /minMD Janiya Raygoza Work Phone: [facility]02-16-2023 06:00-0500 Respiratory rate18 /minMD Janiya Raygoza Work Phone: [phone]02-16-2023 06:00-0500 SaO2% (BldA) [Mass fraction]96 %MD Janiya Raygoza Work Phone: [facility]02-16-2023 06:00-0500 Systolic blood mm[Hg]MD Janiya Raygoza Work Phone: [facility]02-14-2023 14:24-0500 Body hhtlyi363.56 cmMD Janiya Raygoza Work Phone: [facility]02-14-2023 04:46-0500 Body yxectj42.86 kgMD Janiya Raygoza Work Phone: [facility]02-14-2023 03:27-0500 Body .6 [degF]Bari Alicea [address] [place], [place] 9902002-14-2023 03:27-0500 Diastolic blood xnnptuum73 mm[Hg]Bari Alicea [address] [place], [place] 9902002-14-2023 03:27-0500Heart rate67 /minJocassie Alicea [facility]02-14-2023 03:27-0500Mean blood asaxitzc73 mm[Hg]Bari Alicea [address] [place], [place] 9902002-14-2023 03:27-0500 Respiratory rate18 /minJocassie Alicea [facility]02-14-2023 03:27-3171UsA0% (BldA) [Mass fraction]94 %Bari Alicea [facility]02-14-2023 03:27-0500 Systolic blood hlbmkges816 mm[Hg]Bari Alicea [facility]02-14-2023 02:15-0500Heart rate70 /minJocassie Alicea [address] [place], [place] 9902002-14-2023 02:15-0500 Respiratory rate19 /minJocassie Alicea [facility]02-14-2023 02:15-7893TvQ9% (BldA) [Mass fraction]95 %Bari Alicea [address] [place], [place] 9902002-14-2023 01:10-0500Heart rate75 /Micky Alicea [address] [place], [place] 9902002-14-2023 01:10-0500 Respiratory rate27 /minBari Alicea [address] [place], [place] 9902002-14-2023 01:10-7195IfA5% (BldA) [Mass fraction]96 %Bari Alicea [address]02-14-2023 00:16-0500 Hourly RoundingBari Alicea [address]02-13-2023 23:15-0500 Diastolic blood swxrlgru20 mm[Hg]Bari Alicea [address]02-13-2023 23:15-0500 Hourly RoundingBari Alicea [address] [place], [place] 9902002-13-2023 23:15-0500Mean blood terpkixg92 mm[Hg]Bari Alicea [address]02-13-2023 23:15-0500 Systolic blood xrfjcehr307 mm[Hg]Bari Alicea [address]02-13-2023 22:15-0500 Hourly RoundingBari Alicea [address] [place], [place] 9902002-13-2023 21:44-0500 Diastolic blood upiwongo18 mm[Hg]Bari Alicea [address] [place], [place] 9902002-13-2023 21:44-0500Mean blood drmlcfiq50 mm[Hg]Bari Alicea [address] [place], [place] 9902002-13-2023 21:44-0500 Systolic blood xcyxvvnu404 mm[Hg]Bari lAicea [address] [place], [place] 9902002-13-2023 15:48-0500Body pdeivjzciog49.6 [degF]Bari Alicea [facility]02-13-2023 15:48-0500Heart yywc229 /Micky Alicea [facility]02-13-2023 15:48-0500 Respiratory rate19 /Micky Alicea [facility]02-09-2023 14:50-0500Body .56 cmJaniya Raygoza Work Phone: 1(252) [phone]-[place]to[place] [address] Work Phone: 1(701) 404-188902-09-2023 14:50-0500Body mass index (BMI) [Ratio] 25.06 kg/m2Janiya Raygoza Work Phone: 1(699) [phone]-GrpwDavis County [facility] and [facility] 120 Work Phone: 1(182) 769-301802-09-2023 14:50-0500Body surface area Derived from formula1.71 m2Janiya Raygoza Work Phone: 1(764) [phone]-[place]guy[place] [address] Work Phone: 1(451) 658-622602-09-2023 14:50-0500Body trgtqo34.23 kgJaniya Raygoza Work Phone: 1(307) [phone]-YthnDavis County Hospital and Clinics 120 Work Phone: 1(293) 671-322702-09-2023 14:50-0500Diastolic blood qitsbhhe54 mm[Hg] Janiya Raygoza Work Phone: 1(634) [phone]-FwclDavis County Hospital and Clinics 120 Work Phone: 1(496) 757-452502-09-2023 14:50-0500Heart rate92 /Zaheer Raygoza Work Phone: 1(197) [phone]-JroeDavis County Hospital and Clinics 120 Work Phone: 1(117) 948-606702-09-2023 14:50-0500Respiratory rate95 /Zaheer Raygoza Work Phone: 1(976) [phone]-PbryDavis County Hospital and Clinics 120 Work Phone: 1(273) 584-213402-09-2023 14:50-0500Systolic blood akvhrccl322 mm[Hg] Janiya Raygoza Work Phone: 1(495) [phone]-RpimDavis County Hospital and Clinics 120 Work Phone: 1(993) 860-356702-04-2023 16:14-7268NeX2% (BldA) [Mass fraction]97 % Dakota Robb MD Work Phone: [facility]ENTERMobileIgniter [facility] AOJITA47-57-3269 15:55-0500Body pnejixgdoio69.9 [degF]Dakota Robb MD Work Phone: [facility]ENTERMobileIgniter [facility] SYSTEMZLYWXF78-00-8521 15:55-0500Diastolic blood mm[Hg]Dakota Robb MD Work Phone: BON [facility]02-04-2023 15:55-0500Heart rate80 /minDakota Robb MD Work Phone: [facility]ENTERMobileIgn[facility] RXQIXU20-76-7351 15:55-0500 Respiratory rate20 /minDakota Robb MD Work Phone: [facility] DHBVME17-43-5931 15:55-0500Systolic blood vzbjmkro760 mm[Hg]Dakota Robb MD Work Phone: [facility]ON [facility]02-04-2023 15:54-0500Body rqvcie136.6 cmDakota Robb MD Work Phone: [facility]02-04-2023 15:54-0500Body mass index (BMI) [Ratio]25.35 kg/t2QezxebDakota Robb MD Work Phone: [facility] [id number] 15:54-0500Body uitkpk64 kgDakota Robb MD Work Phone: [facility]12-07-2022 13:15-0500Diastolic blood mm[Hg]Et3 JmqgkkftKsexiLzqujq83-47-2489 13:15-0500Heart rate76 /minEt3 DlzhrtmkNxqjtIpyhch13-74-6743 13:15-0500Respiratory rate16 /minEt3 RarldgtfRrnmkZgmuuh57-82-0827 13:15-9533IvA0% (BldA) [Mass fraction]98 %Et3 IzzvqptzIpqxtNfcirr14-91-9947 13:15-0500Systolic blood qjdxmiwm857 mm[Hg]Et3 ResourceMetroHealth Encounters Encounter DateEncounter [facility] ProviderFacilityStart: 09-27-2025 End: 62-29-7771zoakvjxebyHblxzvp Eboni Souza MDFacility:[facility] Start: 09-08-2025 End: 18-32-3592Ojivqvrzm encounterJaniya Raygoza MD Work Phone: [facility] MedicineStart: 09-07-2025 End: 42-87-3329Droegndde Result EncounterGeneric External Data ProviderNOMS External Department UnsolicitedStart: 09-07-2025 End: 27-20-6023Eotqxwswg Result EncounterGeneric External Data ProviderNOMS External Department UnsolicitedStart: 08-20-2025 End: 99-88-3203Ycomti outpatient visit 15 minutesAshconnie Felicityfatoumata FLOOR FINISHER Work Phone: [facility] MedicineComment on above: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)Start: 08-20-2025 End: 83-33-2705vixkvkzcvzPZMBDFOS SWINEHARTNot AvailableStart: 08-20-2025 End: 74-40-9698Nanzdl flowsheetNewport Community Hospitalroel Sosahart FLOOR FINISHER Work Phone: [facility] MedicineStart: 08-20-2025 End: 03-75-9430Rmyfaj flowsheetLourdes Medical Center Felicityhart FLOOR FINISHER Work Phone: [facility] MedicineStart: 08-10-2025 End: 97-17-1486xbuuognlbvTqrfuci [facility] Work Phone: NOVT POPULATION HEALTHStart: 05-18-2025 End: 47-44-2203Lylqvytra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 Medicine05/21/25Team MemberRelationshipSpecialty Start DateEnd Date Janiya Raygoza MD [address] [place] [address] PCP - GeneralFamily Medicine12/02/23 Nallely Larose PA [address] [place] [address] PCP - [facility]11/25/24 Mamta Mir, [employer] [address] [place] [address] Social WorkerFamily Medicine05/20/25 Jennifer Murrell LPN Licensed Practical NurseFamily Medicine05/21/25Team MemberRelationshipSpecialty Start DateEnd Date Janiya Raygoza MD [address] [place] [address] PCP - GeneralFamily Medicine12/02/23 Nallely Larose PA [address] [place] [address] PCP - [facility]11/25/24 Mamta Mir, [employer] [address] [place] [address] Social WorkerFamily Medicine05/20/25 Jennifer Murrell LPN Licensed Practical [facility]05/21/25 FOR RECORDS PERTAINING TO PATIENTS WHO ARE [...] BE BASED ON THE PRIMARY CLINICAL RECORDS. [facility] [employer] provides no warranty or guarantee of the accuracy or completeness of information in this document.
[2025-10-04 08:51] VITALS: BP 108/72; PULSE 78; TEMP 36.6; O2SAT 100
[2025-10-04 09:40] VITALS: BP 116/76; BP 121/77; PULSE 74; PULSE 77; O2SAT 97; O2SAT 98
[2025-10-04] MEDS: IOHEXOL 240 MG/ML - 10 ML VIAL INJ (09:43)
[2025-10-04] MEDS: LIDOCAINE HCL 2% 400 MG/20 ML MDV 3 ML INJ (09:43)
[2025-10-04] MEDS: DEXAMETHASONE SOD PHOS 10 MG/ML VIAL INJ (09:43)
[2025-10-04] MEDS: 0.9 % SODIUM CHLORIDE 10 ML SYRINGE - SALINE FLUSH INJ (09:44)
[2025-10-04] MEDS: BUPIVACAINE HCL 0.25% PF 25 MG/10 ML VIAL INJ (09:44)
--- NOTE | 2025-10-04 09:49 | W.PM.PROCNOT ---
Date of procedure: 10/04/25 Pre-op diagnosis: Pain due to lumbar stenosis with neurogenic claudication Post-op diagnosis: same as pre-op Procedure: Procedure: Bilateral l3-4 transforaminal epidural steroid injection Medications: Bupivacaine 0.25% 2cc, dexamethasone 10mg, lidocaine 2% cc The patient was seen and examined in the preoperative holding area.? Informed consent was obtained and placed on the chart.? Patient was brought to the medical procedure unit and placed in the prone position where a timeout was completed verifying the correct patient, procedure site, position, and planned special equipment using sterile aseptic technique.? Under direct fluoroscopic visualization a 25-gauge Quincke tipped spinal needle was advanced at level left L3-4 to the designated neural foramen where contrast dye was injected to show adequate spread.? There was no evidence of vascular or adverse uptake.? Epidural spread was appreciated.? The above-mentioned injectate was then placed in a 1.5 mL aliquot preceded by negative aspiration.? The needle was removed. The same procedure, at the same level, was completed on the opposite side. ? Patient was taken to the postprocedural recovery area and monitored for an appropriate length of time before found suitable for discharge in the accompaniment of a responsible adult. Anesthesia: Local Surgeon: Ro Souza Pathology: none sent Condition: stable Disposition: no change
== END 2025-10-04 09:49 | disposition home or self-care (01) ==
PROVIDERS: PCP Family Medicine; Visit Provider Anesthesiology
DX: M48.062 Spinal stenosis, lumbar region with neurogenic claudication (principal)
CPT/HCPCS: 64483; J0665; J1100; Q9966

== ENCOUNTER 2025-10-14 14:36 | Outpatient (OUT) | payer OTHER, SELFPAY ==
--- OUTSIDE RECORDS SUMMARY | 2025-10-14 14:42 | XMS_ITS | Clinical Summary ---
Author Organization [facility] Address [address] [place] [address] Care Team Providers Care Social Welfare Clerk Name Role Phone Janiya Raygoza MD Primary Care Provider [phone] Encounters DateTypeDepartmentCare MnewSwnyletshdz39/20/2025Telephone Avita Crawford [facility] [address] [phone] Rebeca Gibson Mqfiabvv64/20/2025Orders Only Avita [facility] [address] [phone] Rebeca Gibson 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)from Last 3 Months Social History Tobacco UseTypesPacks/DayYears UsedDateSmoking Tobacco: Never Assessed CommentsUnknownSex and Gender InformationValueDate RecordedSex Assigned at Not on fileLegal NdzMlxzsl88/20/2025 8:42 AM EDTGender IdentityNot on fileSexual OrientationNot on file Plan of Treatment Health MaintenanceDue DateLast DoneCommentsHEPATITIS C VIRUS OKXYZCNYQ1989 ROBMQOD8006/25/1989HIV SCREENING ARPLCDRRWN96/01/2004HEP B VACCINE (1 of 3 - 19+ 3-dose series)2008TDAP (ADULT)2008CERVICAL CANCER SCREENING NYRTYPFYZZ89/01/2010HPV VACCINE (1 - 3-dose SCDM series)2016COVID-19 VACCINE ( - 2024- season)2025INFLUENZA VACCINE (#1)2025 PNEUMOCOCCAL VACCINE SERIESAged OutNo longer eligible based on patient's age to complete this topic Care Teams Team MemberRelationshipSpecialtyStart DateEnd Date Janiya Raygoza MD [address] [place] [address] PCP - GeneralFamily Lwzqmtrx60/20/25
--- OUTSIDE RECORDS SUMMARY | 2025-10-14 14:42 | XMS_ITS | Patient Health Record ---
Author Organization [facility] [place] Address [address] [place] [address] Care Team Providers Care Elementary Librarian Name Role Phone Idalmis BISWAS, Janiya Primary Care Provider Unavailabl e Reason For Referral No Information Plan Of Treatment Pending Test Test Name Order Date XR Lumbar Spine (2-3 views) * 03/15/2022 Insurance Providers Payer Name Payer Address Payer Phone Subscriber Number Group Number Insured Name Patient Relationship to Insured Coverage Start Date Coverage End Date [employer] MEDICARE [address] [address] [place], [place] [id number] Shirin Burgos Self - patient is the insured 2
--- OUTSIDE RECORDS SUMMARY | 2025-10-14 14:43 | XMS_ITS | Clinical Summary ---
Author Organization [facility] Address [address] [facility] [place] [address] Care Team Providers Care Financial Aid Counselor Name Role Phone Unavailable Primary Care Provider Unavailabl e Source Comments The following information is NOT included in Care Everywhere downloads:Psychiatric notes, ECG results, Cardiac Rehab notes, Pulmonary Function notes, data from SmartForms (includes but not limited toPregnancy data,audiograms, eye exams, pre-surgical evaluation notes, well-child exam data).[facility] Social History Tobacco UseTypesPacks/DayYears UsedDateSmoking Tobacco: Never Assessed CommentsUnknownSex and Gender InformationValueDate RecordedSex Assigned at Not on fileLegal LgtIrdmej54/31/2022 3:43 AM ESTGender IdentityNot on fileSexual OrientationNot on file Last Filed Vital Signs Vital SignReadingTime TakenCommentsBlood Zulbjbam295/7210/31/2022 1:15 PM EST Rrjoo673310/31/2022 1:15 PM ESTTemperature--Respiratory Jumg891801/01/2022 1:15 PM ESTOxygen Thyptqnomx07%10/31/2022 1:15 PM ESTInhaled Oxygen Concentration-- Weight--Height--Body Mass Index-- Plan of Treatment Health MaintenanceDue DateLast DoneCommentsMammography (shared decision-making, age 35-39)1989HIV Test2004Hepatitis C Shmyasgb91/01/2007Tdap Booster 2007Hepatitis A (HAV) Vaccine (optional start 19+ years)2008 Hepatitis B (HBV) Vaccine (1 of 3 - 19+ 3-dose series)2008Pap Smear 2010HPV Vaccine (optional start 27-45 years)2016COVID-19 Vaccine (2024- season)2025Influenza Vaccine (#1)2025Shingles (RZV) Vaccine (1 of 2)2039MammographyDiscontinuedPneumococcal Vaccine(s)Aged Out No longer eligible based on patient's age to complete this topic
--- OUTSIDE RECORDS SUMMARY | 2025-10-14 14:43 | XMS_ITS | Patient Health Record ---
Author Organization [facility] Address [address] [place] [address] Care Team Providers Care Auction Assistant Name Role Phone Abdon King Unavailable [phone] Allergies No Known Allergies Reason For Referral [...] Date Medicaid [employer] [place] [address] [place] [address] [id number] [place] AMADO SALMON Self - patient is the insured Medical (General) History Medical History History ICD Code Asthma/COPD Respiratory problems:GI Problems:
--- OUTSIDE RECORDS SUMMARY | 2025-10-14 14:44 | XMS_ITS | CCD ---
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 above:Performed By: #### TROPI, LIP, CP, CDP #### [facility] Lab [address] [place] [address] Applied Computer Science Professor: DAGOBERTO Doss (Bld) [#/Vol]4.39 10*6/uLNormal4.00-5.20[facility] HospitalComment on above:Performed By: #### TROPI, LIP, CP, CDP #### [facility] Lab [address] [place], [place] [phone] Applied Computer Science Professor: ANNA DossBC (Bld) [#/Vol]11.7 10*3/uLHigh3.5-11.0[facility] Anderson HospitalComment on above:Performed By: #### TROPI, LIP, CP, CDP #### [facility] Lab [address] [place] [address] Applied Computer Science Professor: MIC Dossomp Metabolic Profon 14-47-5475Hiqqzhk [Mass/Vol] 4.1 g/dLNormal3.5-5.2MUniversity Hospitals Health SystemComment on above:Performed By: #### TROPI, LIP, CP, CDP #### [facility] Lab [address] [place], [place] [phone] Applied Computer Science Professor: Rio Doss Phos73 U/NHbmxjh88-885TdxrdMercy Health Anderson HospitalComment on above:Performed By: #### NATALIE, LIP, CP, CDP #### [facility] Lab [address] [place], [place] [phone] Applied Computer Science Professor: Sebastian Reyes MDALT [Catalytic activity/Vol]14 U/LNormal5-33[facility] HospitalComment on above:Performed By: #### TROPI, LIP, CP, CDP #### [facility] Lab [address] [place] [address] Applied Computer Science Professor: Sebastian Reyes MDAnion gap [Moles/Vol]17 mmol/LNormal9-17[facility] HospitalComment on above:Performed By: #### NATALIE, LIP, CP, CDP #### [facility] Lab [address] [phone] Applied Computer Science Professor: Sebastian Reyes MDAST [Catalytic activity/Vol]14 U/LNormal<32MerVA New York Harbor Healthcare SystemComment on above:Performed By: #### NATALIE, LIP, CP, CDP #### [facility] Lab [address] [phone] Applied Computer Science Professor: Sebastian Reyes MDBilirubin [Mass/Vol]0.3 mg/dLNormal0.3-1.2MercVencor HospitalComment on above:Performed By: #### TROPI, LIP, CP, CDP #### [facility] Lab [address] [phone] Applied Computer Science Professor: Sebastian Reyes MDBUN/CRE Soeeg0Ano1-94QqgxmMercy Health Anderson HospitalComment on above:Performed By: #### TROPI, LIP, CP, CDP #### [facility] Lab [address] [place], [place] [phone] Applied Computer Science Professor: MIC Dossalcium [Mass/Vol]9.5 mg/dLNormal8.6-10.4Veterans Health Administrationment on above:Performed By: #### TROPI, LIP, CP, CDP #### [facility] Lab [address] [place] [address] Applied Computer Science Professor: MIC Dosshloride [Moles/Vol]102 mmol/QJwwrgs77-650ZbzrmOhio State East Hospital on above:Performed By: #### TROPI, LIP, CP, CDP #### [facility] Lab [address] [phone] Applied Computer Science Professor: Sebastian Reyes MDCO2 [Moles/Vol]20 mmol/SDrdnoz44-67OtdnyOhio State East Hospital on above:Performed By: #### TROPI, LIP, CP, CDP #### [facility] Lab [address] [place] [address] Applied Computer Science Professor: MIC Dossreatinine [Mass/Vol]0.6 mg/dLNormal0.5-0.9[facility] on above:Performed By: #### TROPI, LIP, CP, CDP #### [facility] Lab [address] [phone] Applied Computer Science Professor: Sebastian Reyes MDGFR/1.73 sq M.predicted among non-blacks MDRD (S/P/Bld) [Vol rate/Area]mL/min/{1.73_m2}Normal>60[facility] on above:Result Comment: These results are [...] By: #### TROPI, LIP, CP, CDP #### [facility] Lab [address] [phone] Applied Computer Science Professor: Sebastian Reyes MDGlucose [Mass/Vol]104 mg/zJRweg31-57DcmnrUniversity Hospitals Health SystemComment on above:Performed By: #### ROYER ESTRADA, CP, CDP #### [facility] Lab [address] [place] [address] Applied Computer Science Professor: GEOVANNY Dossotassium [Moles/Vol]3.7 mmol/LNormal3.7-5.3MUniversity Hospitals Health SystemComment on above:Performed By: #### NATALIE LIP, CP, CDP #### [facility] Lab [address] [place] [address] Applied Computer Science Professor: Sebastian Reyes MDProtein [Mass/Vol]6.8 g/dLNormal6.4-8.3MUniversity Hospitals Health SystemComment on above:Performed By: #### ROYER ESTRADA, CP, CDP #### [facility] Lab [address] [place] [address] Applied Computer Science Professor: Sebastian Reyes MDSodium [Moles/Vol]139 mmol/GAmtncv639-549AhefyMercy Health Anderson HospitalComment on above:Performed By: #### ROYER ESTRADA, CP, CDP #### [facility] Lab [address] [place] [address] Applied Computer Science Professor: Sebastian Reyes MDUrea nitrogen [Mass/Vol]4 mg/dLLow6-20[facility] HospitalComment on above:Performed By: #### NATALIE LIP, CP, CDP #### [facility] Lab [address] [phone] Applied Computer Science Professor: MIC Dossomprehensive Metabolic Panelon 07-23-4492Lcakokz [Mass/Vol]4.1 g/dL3.5 - 5.2 g/dLBon [facility] HealthALP [Catalytic activity/Vol]73 U/L35 - 104 U/LBon [facility] HealthALT [Catalytic activity/Vol]14 U/L5 - 33 U/LBon [facility] HospitalAnion gap [Moles/Vol]17 mmol/L9 - 17 mmol/LBon SecMadigan Army Medical CenterTivity HealthAST [Catalytic activity/Vol]14 U/L NINF - 32 U/LBon SecMadigan Army Medical CenterTivity [facility] Medical CenterBilirubin [Mass/Vol]0.3 mg/dL0.3 - 1.2 mg/dLBon SecMadigan Army Medical CenterTivity HealthCalcium [Mass/Vol]9.5 mg/dL8.6 - 10.4 mg/dLBon [facility] CenterTivity HealthChloride [Moles/Vol]102 mmol/L98 - 107 mmol/LBon [facility] HospitalCO2 [Moles/Vol]20 mmol/L20 - 31 mmol/LBon [facility] HowGood Creatinine [Mass/Vol]0.6 mg/dL0.5 - 0.9 mg/dLBon [facility] Medical [email or web address], Glom Filt Rate- PINFBon [facility] HospitalComment on above: These results are not [...] that affects renal tubular secretion. Glucose [Mass/Vol]104 mg/bPZudc20 - 99 mg/dLBon [facility] HowGood Interpretation and review of laboratory resultsAbnormalBon [facility] HowGood Potassium [Moles/Vol]3.7 mmol/L3.7 - 5.3 mmol/LBon [facility] CenterTivity [facility] Medical CenterProtein [Mass/Vol]6.8 g/dL6.4 - 8.3 g/dLBon [facility] CenterTivity [facility] Medical CenterSodium [Moles/Vol]139 mmol/L135 - 144 mmol/LBon [facility] [email or web address] nitrogen [Mass/Vol]4 mg/dLLow 6 - 20 mg/dLBon [facility] HowGoodUrea nitrogen/Creatinine [Mass ratio]7 mg/mg Low9 - 20Bon [facility] CenterLocalyte.comLipaseon 62-98-5229Fqkpnv [Catalytic activity/Vol]29 U/L13 - 60 U/LBon [facility] CenterTivity [facility] Par[facility] Medical CenterLipase [Catalytic activity/Vol]29 U/QJolusp22-54HbdorOhio State East Hospital on above:Performed By: #### ROYER ESTRADA, CP, CDP #### [facility] Lab [address] [place] [address] Applied Computer Science Professor: Sebastian Reyes MDNo Panel Informationon 88-51-4488Bsg [facility] HospitalTroponinon 78-69-4805Wrcmwphe I.cardiac High sensitivity method [Mass/Vol] ng/L0 - 14 ng/LBon [facility] on above:High Sensitivity Troponin values cannot be compared with other Troponin methodologies.Bon Summa Health Barberton Campusopon, High Sens<4Ajgizn7-88ZfaavOhio State East Hospital on above:Result Comment: High Sensitivity Troponin values cannot be compared with other Troponin methodologies.Performed By: #### ROYER ESTRADA, JADE, CDP #### [facility] Lab [address] [place] [address] Applied Computer Science Professor: Sebastian Reyes MDUrinalysison 13-64-5450Effvbreke Ql (U)Negative NEGATIVEBon [facility] HealthClarity (U)ClearClearBon [facility] Color (U)YellowYellowBon [facility] HospitalCommentHenrico [facility] Glucose Test strip (U) [Mass/Vol]NegativeNEGATIVE mg/dLBon [facility] Hemoglobin Auto test strip Ql (U)NegativeNEGATIVEBon [facility] HealthKetones (U) [Mass/Vol]NegativeNEGATIVE mg/dLBon [facility] HospitalLeukocyte esterase Test strip Ql (U)NegativeNEGATIVEBon [facility] HealthNitrite Ql (U)Negative NEGATIVEBon SecOchsner Medical Center HealthpH (U)6.5 [pH]5.0 - 8.0Bon [facility] Protein (U) [Mass/Vol]NegativeNEGATIVE mg/dLBon [facility]ours [facility] Hospitaly HealthSpecific gravity (U) [Rel density]1.0051.005 - 1.030Bon [facility] HospitalUrobilinogen Qn (U)Normal0.0 - 1.0 EU/dLBon [facility] Urinalysis, Routineon 28-78-1625Pgzkezfpd, SemiQt,UrNegativeNormalNEGMerVA New York Harbor Healthcare SystemComment on above:Performed By: #### UA ####[facility] [address] [place] [address] Lab Director: Priscila Doss, UrineNegativeNormalNEGMercy Health Anderson HospitalComment on above: Performed By: #### UA ####[facility] [address] [place] [address] Lab Director: MIC Dosslarity (U)Clear NormalCLEARMUniversity Hospitals Health SystemComment on above:Performed By: #### UA ####[facility] [address] [place] [phone] Director: MIC Dossolor (U)YellowNormalYAultman Alliance Community Hospital Comment on above:Performed By: #### UA ####[facility] [address] [place] [address] Lab Director: Rachel Doss [facility] Hospital - YoungstownComment on above:Performed By: #### UA ####[facility] [address] [place] [address] Lab Director: Sebastian Reyes MDGlucose Ql (U)NegativeNormalACMC Healthcare System Glenbe[facility] Comment on above:Performed By: #### UA ####[facility] [address] [place] [address] Lab Director: Sebastian Reyes MDKetones Ql (U)NegativeNormalNEGMercy Health Anderson HospitalComment on above:Performed By: #### UA ####[facility] [address] [place] [address] Lab Director: Sebastian Reyes MDLeukocyte esterase Test strip Ql (U)NegativeNormalNEGMercy Health Anderson HospitalComment on above:Performed By: #### UA ####[facility] [address] [facility] [place] [phone] Director: Sebastian Reyes MDNitrite,UrNegativeNormalNEGMercy Health Anderson HospitalComment on above:Performed By: #### UA ####[facility] [address] [place] [address] Lab Director: Sebastian Reyes MD PH,Ur6.7Lonqbt6.0-8.0[facility] HospitalComment on above:Performed By: #### UA ####[facility] [address] [facility], [place] [phone] Director: GEOVANNY Dossrotein Ql (U)NegativeNormalNEG [facility] HospitalComment on above:Performed By: #### UA ####[facility] [address] [place] [address] Lab Director: AUGUST Dosspec. [place],Ur1.790Qnrgyo6.005-1.030[facility] Comment on above:Performed By: #### UA ####[facility] [address] [facility], [place] [phone] Director: Sebastian Reyes MD Urobilinogen,UrNormalNormal0.0-1.0[facility] Anderson HospitalComment on above: Performed By: #### UA ####[facility] [address] [place] [address] Lab Director: ADRIANNA Doss CHEST (2 VW)on 46-00-3039CP CHEST (2 VW)EXAM: Chest x-ray HISTORY: . wheezing . COMPARISON: 08/07/2024 TECHNIQUE: Frontal and lateral chest FINDINGS: Heart and vascularity are unremarkable. Lungs are free of focal infiltrates. No bony abnormality was appreciated. IMPRESSION: No acute heart or lung disease identified. Interpreted by: Sebastian Robb MD Signed by: Sebastian Robb MD 11/02/24 Final resultNoBlanchard Valley Health System Blanch[facility] Valley HospitalXR Chest 2 Viewson 11-02-2024 No acute [...] No acute heart or lung disease identified. [facility] CampusRadiology Study observation (narrative)[facility] Chest 2 ViewsOrdered By: Sebastian Robb on [id number] [facility] Work Phone: cult,Urineon 10-37-1281Pjok,UrineSpecimen Description .URINE, MIDSTREAM Culture NO SIGNIFICANT GROWTH Report Status FINAL 08/08/2024NoBlanchard Valley Health System Blanch[facility] Valley HospitalComment on above: Performed By: #### URC ####[facility] [address] [place] [address] Lab Director: Billy Chavez [facility] [address] [place], [place] [phone] Lab Director: Sebastian Reyes MD MHPT CULT,URINEon [id number] CULT,URINESpecimen Description .URINE, MIDSTREAMNOMS HealthcareMHPT CULT,URINECulture NO SIGNIFICANT GROWTHNOMS HealthcareMHPT CULT,URINEReport Status FINAL 08/08/2024NOMS HealthcareOriginal Ordering Provider: KIET RAMLINISYNCNOPershing Memorial Hospital with Auto Differentialon [id number] (Bld) [#/Vol]0.04 10*3/uLBON REGENCY HOSPITAL TOLEDOImmature granulocytes (Bld) [#/Vol]0.03 10*3/uLBON [facility] Interpretation and review of laboratory resultsAbnormalBON [facility] Lymphocytes/100 WBC (Bld)2.82 %[facility] CENTERMonocytes/100 WBC (Bld) 0.75 %[facility] MEDICAL CENTERNeutrophils/100 WBC (Bld)70 %47 - 75 %[facility]STER MEDICAL CENTERSegmented neutrophils/100 WBC (Bld)8.15 %HighWINCHESTER MEDICAL CENTERWBC other (Bld) [#/Vol]11.8HighMOUNTAIN STATES HEALTH ALLIANCECBC with Diffon 31-23-3061Tjkiakplz/100 WBC (Bld)0 %Normal0-2BON [facility] General Hospitalment on above:Performed By: #### LACTIC CDP, CP #### [facility] Lab [address] [place] [address] Applied Computer Science Professor: Sebastian Reyes MDEosinophils (Bld) [#/Vol]0.05 10*3/uLNormal 0.00-0.40BON [facility] on above:Performed By: #### LACTICANN, CP #### [facility] Lab [address] [place] [address] Applied Computer Science Professor: Sebastian Reyes MDEosinophils/100 WBC (Bld)0 %Normal0-5BON [facility] on above:Performed By: #### LACTIC CDP, CP #### [facility] Lab [address] [place] [address] Applied Computer Science Professor: Sebastian Reyes MDErythrocyte distribution width (RBC) [Ratio]11.8 % Low12.1-15.2BON [facility] on above:Performed By: #### LACTIC CDP, CP #### [facility] Lab [address] [place] [address] Applied Computer Science Professor: Sebastian Reyes MDHematocrit (Bld) [Volume fraction]43.8 %Normal 36.0-46.0BON SECOhioHealth Arthur [facility] on above:Performed By: #### LACTIC CDP, CP #### [facility] Lab [address] [place] [address] Applied Computer Science Professor: Sebastian Reyes MDHemoglobin (Bld) [Mass/Vol]15.1 g/dLNormal 12.0-16.0B[address] MARY HOSPITALCombeaumont hospital on above:Performed By: #### LACTIC CDP, CP #### [facility] Lab [address] [place] [address] Applied Computer Science Professor: Rachna Dossmature granulocytes/100 WBC (Bld)0 %Normal0-5BON SECOhioHealth Arthur [facility] on above:Performed By: #### CORTEZ CDP, CP #### [facility] Lab [address] [place] [address] Applied Computer Science Professor: Sebastian Reyes MDLymphocytes/100 WBC (Bld)24 %Lvjicg54-94OIX SECOhioHealth Arthur G.[facility]. [facility], [facility], [facility] on above:Performed By: #### ANN TORO, CP #### [facility] Lab [address] [place] [address] Applied Computer Science Professor: ZULLY DossCH (RBC) [Entitic mass]33.2 sxRmdqep24.0-34.0BON SECOhioHealth Arthur [facility] on above:Performed By: #### CORTEZ CDP, CP #### [facility] Lab [address] [place] [address] Applied Computer Science Professor: SEMAJ DossC (RBC) [Mass/Vol]34.5 g/cIDmdodq52.0-37.0BON SECOhioHealth [facility] on above:Performed By: #### LACTIC CDP, CP #### [facility] Lab [address] [phone] Applied Computer Science Professor: Sebastian Sturtz, MDMCV (RBC) [Entitic vol]96.3 uVRsjtly86.0-100.0BON [facility] on above:Performed By: #### LACTIC, CDP, CP #### [facility] Lab [address] [place] [address] Applied Computer Science Professor: ZULLY Dossonocytes/100 WBC (Bld)6 %Normal4-8BON [facility] on above:Performed By: #### LACTIC, CDP, CP #### [facility] Lab [address] [place] [address] Applied Computer Science Professor: Anjel Dosstearmen mean volume (Bld) [Entitic vol]9.9 fL Normal6.0-12.0BON [facility] on above:Performed By: #### LACTIC, CDP, CP #### [facility] Lab [address] [place] [address] Applied Computer Science Professor: Anjel Dosstehaseeb (Bld) [#/Vol]314 10*3/zOTijpxp767-963JBF [facility] on above:Performed By: #### LACTIC, CDP, CP #### [facility] Lab [address] [place] [address] Applied Computer Science Professor: Sebastian Reyes MDRBC (Bld) [#/Vol]4.55 10*6/uLNormal4.00-5.20BON [facility] on above:Performed By: #### LACTIC, CDP, CP #### [facility] Lab [address] [place] [address] Applied Computer Science Professor: Shanna Doss. Basophil0.04 k/uLNormal0.00-0.20MerOhioHealth Grady Memorial Hospital on above:Performed By: #### LACTIC, CDP, CP #### [facility] Lab [address] [place] [address] Applied Computer Science Professor: Shanna Doss.Imm.Granulocyte0.03 k/uLNormal0.00-0.30[facility] HospitalComment on above:Performed By: #### LACTIC CDP, CP #### [facility] Lab [address] [place] [address] Applied Computer Science Professor: Shanna Doss.Neutrophil (Seg)8.15 k/uLHigh2.5-7.0[facility] HospitalComment on above:Performed By: #### LACTIC, CDP, CP #### [facility] Lab [address] [place] [address] Applied Computer Science Professor: Sebastian Reyes MDLymphocytes (Bld) [#/Vol]2.82 10*3/uLNormal 1.00-4.80[facility] HospitalComment on above:Performed By: #### ANN TORO, CP #### [facility] Lab [address] [place] [address] Applied Computer Science Professor: ZULLY Dossonocytes (Bld) [#/Vol]0.75 10*3/uLNormal0.00-1.00 [facility] HospitalCombeaumont hospital on above:Performed By: #### CORTEZ CDP, CP #### [facility] Lab [address] [place] [address] Applied Computer Science Professor: Sebastian Reyes MDNeutrophil (Seg)70 %Tpfoxi77-01DnyfsMercy Health Anderson HospitalComment on above:Performed By: #### LACTIC, CDP, CP #### [facility] Lab [address] [phone] Applied Computer Science Professor: ANNA DossBC (Bld) [#/Vol]11.8 10*3/uLHigh3.5-11.0[facility] HospitalComment on above:Performed By: #### LACTIC, CDP, CP #### [facility] Lab [address] [place] [address] Applied Computer Science Professor: Sebastian Reyes, MDCT ABDOMEN PELVIS W IV CONTRASTon [id number] ABDOMEN PELVIS W IV CONTRASTEXAM: CT ABDOMEN [...] by: Gray Oro Jr., MD 08/07/24 Final resultNoSalem Regional [facility] Center Abdomen and Pelvis W contrast Juan R 08-07-2024 Negative. [facility] RIS CONSOLIDATEDEXAM: CT ABDOMEN PELVIS W IV [...] glands, pancreas, spleen, liver and lung bases. [facility] Gray Mcrae Jr., MD - [...] spleen, liver and lung bases. IMPRESSION: Negative. [facility]ALTH ALLIANCERadiology Study observation (narrative)[facility] Metabolic Profon [id number] [Mass/Vol]4.4 g/dLNormal3.5-5.2[facility] Health River RegionComment on above:Performed By: #### CORTEZ CDP, CP ####[facility] [address] [place] [address] Lab Director: Rio Doss Phos74 U/CUfjscx91-009YsdlcMercy Health Anderson HospitalComment on above:Performed By: #### LACTIC CDP, CP ####[facility] [address] [place] [address] Lab Director: Sebastian Reyes MDALT [Catalytic activity/Vol]16 U/LNormal5-33[facility] Anderson HospitalCombeaumont hospital on above:Performed By: #### CORTEZ CDP, CP ####[facility] [address] [place] [address] Lab Director: Maxx Doss gap [Moles/Vol]13 mmol/L Normal9-17[facility] HospitalComment on above:Performed By: #### CORTEZ CDP, CP ####[facility] [address] [place] [address] Lab Director: Sebastian Reyes MDAST [Catalytic activity/Vol]15 U/LNormal<32[facility] HospitalComment on above:Performed By: #### LACTIC, CDP, CP ####[facility] [address] [place] [address] Lab Director: Sebastian Reyes MDBilirubin [Mass/Vol]0.4 mg/dL Normal0.3-1.2MUniversity Hospitals Health SystemComment on above:Performed By: #### LACTIC, CDP, CP ####[facility] [address] [place] [address] Lab Director: Sebastian Reyes MDBUN/CRE Rljvq6Ynn5-70GczsyMercy Health Anderson HospitalComment on above:Performed By: #### LACTIC, CDP, CP ####[facility] [address] [place] [phone] Director: MIC Dossalcium [Mass/Vol]9.2 mg/dLNormal8.6-10.4Mercy Health Anderson HospitalComment on above:Performed By: #### LACTIC, CDP, CP ####[facility] [address] [place] [phone] Director: MIC Dosshloride [Moles/Vol]103 mmol/PXbazqv39-305PuijkMercy Health Anderson HospitalComment on above:Performed By: #### LACTIC, CDP, CP ####[facility] [address] [place] [phone] Director: Sebastian Reyes MDCO2 [Moles/Vol]22 mmol/MQadlec10-55KpbnzMercy Health Anderson Hospital Comment on above:Performed By: #### LACTIC, CDP, CP ####[facility] [address] [place] [phone] Director: MIC Dossreatinine [Mass/Vol]0.7 mg/dLNormal0.5-0.9[facility] Comment on above:Performed By: #### LACTIC, CDP, CP ####[facility] [address] [place] [address] lab Director: Sebastian Reyes MDGFR/1.73 sq M.predicted among non-blacks MDRD (S/P/Bld) [Vol rate/Area]mL/min/{1.73_m2}Normal>60Mercy Health Anderson HospitalComment on above:Result Comment: These results are not [...] tubular secretion.Performed By: #### ANN TORO, CP ####[facility] [address] [place] [phone] Director: Sebastian Reyes MDGlucose [Mass/Vol]77 mg/bRCxkjnr59-19YjjxaUniversity Hospitals Health SystemComment on above:Performed By: #### ANN TORO, CP ####[facility] Z[address] [place] [address] Lab Director: GEOVANNY Dossotassium [Moles/Vol]3.6 mmol/LLow3.7-5.3MUniversity Hospitals Health SystemComment on above:Performed By: #### ANN TORO, CP ####[facility] [address] [place] [address] Lab Director: Sebastian Reyes MDProtein [Mass/Vol]7.6 g/dLNormal6.4-8.3MUniversity Hospitals Health System Comment on above:Performed By: #### CORTEZ CDP, CP ####[facility] [address] [place] [id number] Lab Director: Sebastian Reyes MDSodium [Moles/Vol]138 mmol/ACjysup285-289WxaoxMercy Health Anderson HospitalComment on above:Performed By: #### CORTEZ CDP, CP ####[facility] [address] [place] [address] lab Director: Sebastian Reyes MD Urea nitrogen [Mass/Vol]4 mg/dLLow6-20Mercy Health Anderson HospitalCombeaumont hospital on above: Performed By: #### LACTIC, ANN, CP ####[facility] [address] [place] [address] lab Director: Sebastian Reyes MD Comprehensive Metabolic Panelon 67-64-7950Vciskqj [Mass/Vol]4.4 g/dL3.5 - 5.2 g/dLBON REGENCY HOSPITAL TOLEDOALP [Catalytic activity/Vol]74 U/L35 - 104 U/LBON REGENCY HOSPITAL TOLEDOALT [Catalytic activity/Vol]16 U/L5 - 33 U/LBON [facility] TOLEDOAnion gap [Moles/Vol]13 mmol/L9 - 17 mmol/LBON [facility] AST [Catalytic activity/Vol]15 U/LNINF - 32 U/LBON [facility]ENCY [facility]ITAL TOLEDOBilirubin [Mass/Vol]0.4 mg/dL0.3 - 1.2 mg/dLBON REGENCY HOSPITAL TOLEDOCalcium [Mass/Vol]9.2 mg/dL8.6 - 10.4 mg/dLBON REGENCY HOSPITAL TOLEDOChloride [Moles/Vol]103 mmol/L98 - 107 mmol/LBON REGENCY HOSPITAL TOLEDOCO2 [Moles/Vol]22 mmol/L20 - 31 mmol/LBON [facility]ENCY [facility]ITAL TOLEDOCreatinine [Mass/Vol]0.7 mg/dL0.5 - 0.9 mg/dLBON REGENCY HOSPITAL TOLEDOEst, Glom Filt Rate- PINFBON REGENCY HOSPITAL TOLEDOCombeaumont hospital on above: These results are not [...] secretion. Glucose [Mass/Vol]77 mg/dL70 - 99 mg/dLBON REGENCY HOSPITAL TOLEDOInterpretation and review of laboratory resultsAbnormalWINCHESTER MEDICAL CENTERPotassium [Moles/Vol]3.6 mmol/LLow3.7 - 5.3 mmol/LBON REGENCY HOSPITAL TOLEDOProtein [Mass/Vol]7.6 g/dL6.4 - 8.3 g/dLBON REGENCY HOSPITAL TOLEDOSodium [Moles/Vol]138 mmol/L135 - 144 mmol/LBON REGENCY HOSPITAL TOLEDOUrea nitrogen [Mass/Vol]4 mg/dLLow 6 - 20 mg/dLBON REGENCY HOSPITAL TOLEDOUrea nitrogen/Creatinine [Mass ratio]6 mg/mg Low9 - 20BON MOBRIDGE REGIONAL HOSPITALHCG, ,Urineon 49-56-9644Owbz HCG ( test) Ql (U)NegativeNormalNEGMercy Merit Health River RegionComment on above:Performed By: #### UHCG #### [facility] [address] [place] [address] Applied Computer Science Professor: Sebastian Reyes MDLactic Acidon 33-01-2403Emwwjnldufcwcz and review of laboratory resultsAbnormJohnston Memorial HospitalLactate (BldV) [Moles/Vol] 2.5 mmol/LHigh0.5 - 2.2 mmol/LBON MOBRIDGE REGIONAL HOSPITAL Lactate [Moles/Vol]2.5 mmol/LHigh0.5-2.2MercVencor HospitalComment on above: Performed By: #### LACTIC, CDP, CP ####[facility] [address] [place] [address] Lab Director: Sebastian Reyes MD Microscopic Urinalysison 08-07-2024-BON REGENCY HOSPITAL TOLEDOBacteria LM Ql (Urine sed)2+AbnormalNoneBON REGENCY HOSPITAL TOLEDOEpithelial cells LM.HPF (Urine sed) [#/Area]2 TO 5/HPFWINCHESTER MEDICAL CENTERRBC LM.HPF (Urine sed) [#/Area] None SeenWINCHESTER MEDICAL CENTERWBC LM.HPF (Urine sed) [#/Area]0 TO 20 /HPFBON REGENCY HOSPITAL TOLEDONo Panel Informationon 11-27-4858Dqozzkvadtnlvd and review of laboratory resultsAbnormalBON MOBRIDGE REGION[facility]PITAL , Urineon 53-64-6908XRS ( test) Ql (U)NegativeNEGATIVEBON MOBRIDGE REGIONAL HOSPITALUrinalysison 03-02-5606Jfvvjsssx Ql (U)NegativeNEGATIVEBON REGENCY HOSPITAL TOLEDOClarity (U)ClearClearBON REGENCY HOSPITAL TOLEDOColor (U)YellowYellowBON REGENCY HOSPITAL TOLEDOCommentBON REGENCY HOSPITAL TOLEDOGlucose Test strip (U) [Mass/Vol]NegativeNEGATIVE mg/dLBON REGENCY HOSPITAL TOLEDOHemoglobin Auto test strip Ql (U)NegativeNEGATIVEBON REGENCY HOSPITAL TOLEDOKetones (U) [Mass/Vol]NegativeNEGATIVE mg/dLBON REGENCY HOSPITAL TOLEDO Leukocyte esterase Test strip Ql (U)1+AbnormalNEGATIVEWINCHESTER MEDICAL CENTER Nitrite Ql (U)NegativeNEGATIVEBON [facility] HEALTHpH (U)6.0 [pH]5.0 - 8.0BON REGENCY HOSPITAL TOLEDOProtein (U) [Mass/Vol]1+AbnormalNEGATIVE mg/dLBSTONESPRINGS HOSPITAL CENTERSpecific gravity (U) [Rel density]1.0201.005 - 1.030BON REGENCY HOSPITAL TOLEDOUrobilinogen Qn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 ChemAlk Phos61 [iU]/yHvwenf99 - 98 Int._Unit/LRemisol IqgrOVM01 [iU]/dNormal6 - 46 Int._Unit/L Remisol ChemAnion gap [Moles/Vol]12 mmol/LNormal6 - 16 mEq/LRemisol AcruEGF74 [iU]/dNormal5 - 43 Int._Unit/LRemisol ChemBili Direct0.2 mg/dLNormal0.1 - 0.4 mg/dLRemisol ChemBili Total0.8 mg/dLNormal0.0 - 1.1 mg/dLRemisol ChemCalcium [Mass/Vol]9.3 mg/dLNormal8.9 - 11.1 mg/dLRemisol ChemChloride [Moles/Vol]106 mmol/ZIympvi636 - 111 mmol/LRemisol ChemCO2 [Moles/Vol]25 mmol/ZYombxt30 - 31 mmol/LRemisol ChemCreatinine [Mass/Vol]0.6 mg/dLNormal0.5 - 1.3 mg/dLRemisol ChemeGFRmL/min/1.73 n9Mrsvdk>=59mL/min/1.73 l3Wpnpnjs ChemGlobulin (S) [Mass/Vol]2.6 g/dLNormal1.4 - 4.0 gm/dLRemisol ChemGlucose [Mass/Vol]105 mg/dL Wzxagl69 - 199 mg/dLRemisol ChemLipase Lvl17 unit/ZRhjyat35 - 58 unit/LRemisol ChemPotassium [Moles/Vol]3.9 mmol/LNormal3.5 - 5.3 mmol/LRemisol ChemProtein [Mass/Vol]6.8 g/dLNormal6.0 - 7.8 gm/dLRemisol ChemSodium [Moles/Vol]139 mmol/L Zusvjj129 - 145 mmol/LRemisol ChemUrea nitrogen [Mass/Vol]mg/dLLow5 - 21 mg/dL Remisol ChemUrea nitrogen/Creatinine [Mass ratio]7 mg/mgLow10 - 20Remisol Chem CHEMISTRYOrdered By: Altagracia Burgos on 51-08-8347Cpzzmhj/Globulin [Mass ratio] 1.6 {ratio}Normal1.1 - 2.2FC Chem SBili Indirect0.6 mg/dLNormal0.1 - 0.9 mg/dL [facility] Chem SConsent for Treatmenton 81-30-5711Firtjdy for Treatment [id number]#1.00TIFPremier Health Miami Valley Hospital SouthDischarge Instructionson 71-72-2038Soankrwxh Instructions [id number]#1.00TIFHenry County Hospital Clinical Summaryon [id number] Clinical Summary [place] [address] ED Clinical Summary Person Information Name: SHIRIN BURGOS Rachna/[facility] Age: 33 Years : 1990 Sex: Female Language: Niuean PCP: JANIYA RAYGOZA MD Marital Status: Single [...] 11/05/2023 14:16:12 11/05/2023 14:16:12 ADDRESS: [facility] [address] [phone] [facility] DOC NOTES: MEDICAL INFORMATION: Prescriptions Given: [...] up: With: Address: When: Juli Sauceda [address] [facility], [address], [address] [phone] Business (1) In 3 days 11/08/2023 With: Address: When: JANIYA RAYGOZA [address] [place] [address] Business (1) In 3 days DIAGNOSIS: Gastritis; UTI (urinary tract infection)[facility] CenterED Note-Physicianon 90-64-2619EU Note-PhysicianBasic Information Time Seen: Bari Alicea DO [...] Sauceda In 3 days 11/08/[address], [address] [phone] Business (1) Additional Instructions: JANIYA RAYGOZA In 3 days [address] [place] [address]- Business (1) Additional Instructions: Problem List/Past Medical [...] per day. Ready to (more content not included)...[facility] SystemComment on above:Result Comment: Electronically Signed By: Bari Alicea DO\.br\Date and Time Signed: 11/05/23 14:06ESTED Patient Education Noteon [id number] Patient Education NoteNormMercy Health West Hospital CenterED Patient Summaryon [id number] Patient Summary [place] [id number] Patient Discharge Instructions Person Information Name: SHIRIN BURGOS Age: 33 Years Arrival Date: 11/05/2023 12:49:22 Discharge Diagnosis: Gastritis; UTI (urinary tract infection) Primary Care Physician: JANIYA RAYGOZA MD Provider Information Primary Provider: Bari Alicea DO Advanced Weigh Boss:None The exam and treatment you received in the Emergency Department were for an urgent problem and are not intended as complete care. It is important that you follow up with a doctor, nurse practitioner,or physician?s players assistant for ongoing care. If your symptoms [...] Instructions: With: Address: When: Juli Sauceda [address] [facility], [address], [address] [phone] Business (1) In 3 days 11/08/2023 With: Address: When: JANIYA RAYGOZA [address] [place] [address] Business (1) In 3 days In the event that this physician does not participate in your insurance network, please consult with your insurance company to find a nearby participating provider. Patient Education Materials: A MESSAGE TO ALL PATIENTS REGARDING OPIOIDS PRESCRIPTION OPIOIDS: WHAT YOU NEED TO KNOW Prescription opioids can be used to help relieve ugguifcv-iw-bmogpa pain and are often prescribed following a [...] your community drug take- back program or [address] mail-back program, or flush them down the toilet, following guidance from the Food and Drug Administration (www.fda.gov/Drugs/ResourcesForYou). ? Visit www.cdc.gov/drugoverdose to learn about the risks of opioids abuse and overdose. ? If you believe you may be struggling with addiction, tell your health care prof (more content notincluded)...[facility] SystemHEMATOLOGY Ordered By: SYSTEM SYSTEM on 46-24-7908Mvxcjyall/100 WBC (Bld)0.5 %Normal0.0 - 2.0 %[facility] HemeAutoSSBasophils/Leukocytes Auto (Bld) [Pure # fraction]0.1 E9/L Normal0.0 - 0.2 E9/LFTMC HemeAutoSSEosinophils/100 WBC (Bld)1.9 %Normal0.0 - 8.0 %[facility] HemeAutoSSEosinophils/Leukocytes Auto (Bld) [Pure # fraction]0.3 E9/L Normal0.0 - 0.5 E9/LFTMC HemeAutoSSLymphocytes/100 WBC (Bld)27.3 %Vuwlhs46.0 - 50.0 %[facility] HemeAutoSSLymphocytes/Leukocytes Auto (Bld) [Pure # fraction]4.1 E9/L High1.0 - 4.0 E9/LFTMC HemeAutoSSMonocytes/100 WBC (Bld)4.6 %Normal4.0 - 14.0 % [facility] HemeAutoSSMonocytes/Leukocytes Auto (Bld) [Pure # fraction]0.7 E9/LNormal 0.2 - 1.0 E9/LFTMC HemeAutoSSNeutrophils/100 WBC (Bld)65.7 %Rzussr08.0 - 75.0 % [facility] HemeAutoSSNeutrophils/Leukocytes Auto (Bld) [Pure # fraction]9.8 E9/LHigh 2.0 - 7.5 E9/[facility] HemeAutoSSHEMATOLOGYOrdered By: Tiffanie Faith on 11-05-2023 Erythrocyte distribution width (RBC) [Ratio]15.6 %High10.9 - 14.2 %FT HemeAutoSSHematocrit (Bld) [Volume fraction]48.2 %High34.0 - 46.0 %FT HemeAutoSSHemoglobin (Bld) [Mass/Vol]16.5 g/gLPcfc17.0 - 16.0 gm/dLFT HemeAutoSSMCH (RBC) [Entitic mass]34.3 naBfnb93.0 - 34.0 pgFTM HemeAutoSSMCHC (RBC) [Mass/Vol]34.3 g/yMKpbidi04.4 - 36.0 gm/dLFT HemeAutoSSMCV (RBC) [Entitic vol]100.2 yWOmwi60.0 - 100.0 fLFT HemeAutoSSPlatelet mean volume (Bld) [Entitic vol]8.1 fLNormal6.4 - 10.8 fLSH[facility] HemeAutoSSPlatelets (Bld) [#/Vol]312.0 E9/AFxvnaa341.0 - 500.0 E9/[facility] HemeAutoSSRBC (Bld) [#/Vol]4.8 E12/LNormal4.3 - 5.9 E12/[facility] HemeAutoSSWBC corrected for nucl RBC Auto (Bld) [#/Vol]14.9 E9/LHigh4.0 - 11.0 E9/[facility] HemeAutoSSHep Func Panelon 11-05-2023 Albumin/Globulin [Mass ratio]1.6 {ratio}Normal1.1-2.2[facility] Comment on above:Performed By: #### 6529547, 3934627, 83876149, 4673282, 6628689, 7804366 ###[facility] [address] [place], [place] [address]Bhxu Indirect0.6 mg/dLNormal0.1-0.9[facility]c Medical CenterComment on above:Performed By: #### 6342991, 8569207, 75618853, 6855942, 9354757, 0126522 ####[facility] [address] [place], [place] [address]Xolzahg [Mass/Vol]4.2 g/dLNormal3.3-5.0[facility] Medical CenterComment on above:Performed By: #### 0220179, 7387201, 87384239, 1879426, 4441719, 9890469 ####[address] [place], [place] [address]Weg Phos61 Int._Unit/EEwillb90-63WtttwkUc Medical Center Comment on above:Performed By: #### 6363459, 1084584, 39432730, 6072717, 7259071, 5038387 ####[address] [place], [place] [address]UMT93 Int._Unit/LNormal6-46[facility] Comment on above:Performed By: #### 0990237, 3864670, 95467982, 3721222, 0657859, 4618005 ####[facility] [address] [place], [place] [address]WDG04 Int._Unit/LNormal5-43[facility] Comment on above:Performed By: #### 7533958, 6968839, 18653653, 6911938, 9580223, 2200309 ####[address] [place], [place] [address]Gtqv Direct0.2 mg/dLNormal0.1-0.4FSouthern [place] Medical Center Comment on above:Performed By: #### 7955013, 6589274, 62098400, 6830691, 7735961, 6368964 ####[facility] [address] [place], [place] [address]Yztm Total0.8 mg/dLNormal0.0-1.1FSouthern [place] Medical Center Comment on above:Performed By: #### 3200746, 1430336, 53551995, 5433270, 9118933, 6860257 ####[facility] [address] [place], [place] [address]Xlpxxzvw (S) [Mass/Vol]2.6 g/dLNormal1.4-4.0[facility] Medical CenterComment on above:Performed By: #### 8447579, 6498728, 68599519, 3915083, 9849275, 3709810 ####[address] [address]Cmbonnv [Mass/Vol]6.8 g/dLNormal6.0-7.8Uc Medical CenterComment on above:Performed By: #### 4500357, 5102064, 94259439, 4178210, 0928422, 7594402 ####[address] [address]Ltxbjl Levelon 84-12-0370Wvqnri Lvl17 unit/RYdjdra83-42 [facility] CenterComment on above:Performed By: #### 4591585, 2403519, 02569170, 8258221, 7240906, 0812558 ####[facility] [address] [place] [address]AG With Cult Reflexon 11-05-2023 Bacteria LM Ql (Urine sed)TRACENormalTraceUc Medical CenterComment on above:Performed By: #### 34482494, 7323145 ####[address] [address]Sittquien Ql (U)NegativeNormal NegativeUc Medical CenterComment on above:Performed By: #### 76054407, 6344238 ####[address] [address]Dbwwjjd (U)CLEARNormalClearUc Medical CenterComment on above: Performed By: #### 23802663, 9346586 ####[address] [address]Mryuc (U)YELLOWNormalYellowUc Medical CenterComment on above:Performed By: #### 49035332, 5568393 ####[address] [address] Epithelial cells.squamous LM.HPF (Urine sed) [#/Area]6-0Qddocf5-2QxctgySouthern Ohio Medical CenterComment on above:Performed By: #### 66746925, 5174050 ####[address] [address]Mapiiuc Test strip (U) [Mass/Vol]NegativeNormalNegativeUc Medical CenterComment on above:Performed By: #### 26770600, 3556999 ####[address] [address]Tafziayasq Ql (U)1+AbnormalNegative [facility] Medical CenterComment on above:Performed By: #### 95470998, 8332010 ####[address] [address] Ketones (U) [Mass/Vol]NegativeNormalNegativeUc Medical CenterComment on above:Performed By: #### 17781913, 4208764 ####[address] [address]Mbtftsk.plasma/Sikeston.RBC (Bld) [Mass ratio]5-69Akxazp5-9BiepewSouthern Ohio Medical CenterComment on above:Performed By: #### 96550030, 0711911 ####[address] [address]Snekn Ql (Urine sed)TRACENormalUc Medical CenterComment on above:Performed By: #### 04373824, 4181258 ####[address] [address]Xffheac Ql (U)Negative NormalNegAdams County Regional Medical CenterComment on above:Performed By: #### 58194232, 5807192 ####[address] [address]gP (U)7.0 [pH]Invalid Interpretation Code5.0-9.0[facility]c Medical CenterComment on above:Performed By: #### 36552603, 9555247 ####[facility]iver [address] [address]Iovtkmf (U) [Mass/Vol]NegativeNormalNegativeUc Medical CenterComment on above: Performed By: #### 66399488, 3371511 ####[facility]iver [address] [address]Ayyrtqsf gravity (U) [Rel density] <=1.005Invalid Interpretation Code1.005-1.030Uc Medical CenterComment on above:Performed By: #### 11971798, 3148991 ####River [address] [address]Xumd of Urine collection methodClean CatchNoSelect Medical Specialty Hospital - Southeast OhioComment on above:Performed By: #### 11616876, 9153796 ####Perico [address] [address]Yzeshcnwmvzq Qn (U)0.2 {Ta'U}/dLNormal0.0-1.0[facility]c Medical CenterComment on above:Performed By: #### 62098327, 8452878 ####River [address] [address]ZPJ Auto Ql (U)3+AbnormalNegativeUc Medical CenterComment on above: Performed By: #### 84433435, 5590050 ####[address] [address]SQG LM.HPF (Urine sed) [#/Area]/[HPF] Abnormal0-5[facility] Washington Pediatric HospitalComment on above:Performed By: #### 15192217, 5261786 ####River [address] [address]EKKWXMTVSGXlqnukr By: Aimee Barrett on 83-51-8789Ggaxyxon LM Ql (Urine sed)Trace /HPFNormalTrace/HPFSHARE MEDICAL [facility] UA Auto SSBilirubin Ql (U) Negative (11/05/23 1:09 PM)NormalNegativeSHARE MEDICAL [facility]ENTER [facility] UA Auto SSClarity (U)Clear (11/05/23 1:09 PM)NormalClearFTM UA Auto SSColor (U)Yellow (11/05/23 1:09 PM)NormalYellowSHARE MEDICAL CENTER – ALVA UA Auto SSEpithelial cells.squamous LM.HPF (Urine sed) [#/Area]0-2 /HPFNormal0-2/HPFSHARE MEDICAL CENTER – [facility] UA Auto SSGlucose Test strip (U) [Mass/Vol]Negative (11/05/23 1:09 PM)NormalNegativeSHARE MEDICAL [facility]ENTER [facility] UA Auto SSHemoglobin Ql (U)1+ *ABN* (11/05/23 1:09 PM)Invalid Interpretation CodeNegativeSHARE MEDICAL [facility]ENTER [facility] UA Auto SSKetones (U) [Mass/Vol]Negative (11/05/23 1:09 PM)NormalNegativeSHARE MEDICAL [facility]ENTER [facility] UA Auto SSLithium.plasma/Sikeston.RBC (Bld) [Mass ratio]4-20 /HPFNormal0-3/HPFSHARE MEDICAL CENTER – [facility]VA UA Auto SSMucus Ql (Urine sed)Trace (11/05/23 1:09 PM)NormalSHARE MEDICAL CENTER – [facility]VA UA Auto SSNitrite Ql (U)Negative (11/05/23 1:09 PM)NormalNegativeSHARE MEDICAL [facility]ENTER [facility] UA Auto SSpH (U)7.0 *NA* (11/05/23 1:09 PM)Invalid Interpretation Code5.0 - 9.0[facility] UA Auto SSProtein (U) [Mass/Vol]Negative (11/05/23 1:09 PM)NormalNegativeSHARE MEDICAL CENTER [facility] UA Auto SSSpecific gravity (U) [Rel density]<=1.005 *NA* (11/05/23 1:09 PM)Invalid Interpretation Code1.005 - 1.030[facility] UA Auto SSUA Spec DescClean Catch (11/05/23 1:09 PM)NormalSHARE MEDICAL CENTER – [facility]VA UA Auto SSUrobilinogen Qn (U)0.6978317 {Ta'U}/dLNormal0.0 - 1.0 EU/dLSHARE MEDICAL CENTER – [facility]VA UA Auto SSWBC Auto Ql (U)3+ *ABN* (11/05/23 1:09 PM)Invalid Interpretation CodeNegativeSHARE MEDICAL CENTER – [facility] UA Auto SSWBC LM.HPF (Urine sed) [#/Area]/[HPF]Invalid Interpretation Code0-5/HPFSHARE MEDICAL CENTER – ALVA UA Auto SSeGFR on 30-26-8300XVB/1.73 sq M.predicted among non-blacks MDRD (S/P/Bld) [Vol rate/Area]mL/min/{1.73_m2}Normal>=59Counts Include [facility] Hospitaler [facility] Washington Pediatric HospitalComment on above: Order Comment: Order added by Discern Expert.Performed By: #### 6962840, 0761832, 63619107, 2476239, 2323588, 6662928 ####[facility] [address] [place], [place] [address]SZN with Auto Differentialon 55-52-7871Hixmuydlb (Bld) [#/Vol][facility] HEALTHBasophils/100 WBC (Bld) 0 - 2 %[facility] HEALTHEosinophils (Bld) [#/Vol]0.16 10*3/uLBON SECOURS MERCY HEALTHEosinophils/100 WBC (Bld)2 %0 - 5 %[facility] Erythrocyte distribution width (RBC) [Ratio]14.0 %12.1 - 15.2 %[facility] HEALTHHematocrit (Bld) [Volume fraction]49.5 %High36 - 46 %[facility] HEALTHHemoglobin (Bld) [Mass/Vol]16.8 g/rNAofp95.0 - 16.0 g/dLBON [facility]RS [facility] HEALTHImmature granulocytes [...] g/dLBON SECOURS MERCY HEALTHMCV (RBC) [Entitic vol]100.2 gXLikd98 - 100 fLBON SECOURS MERCY HEALTHMonocytes/100 WBC (Bld)3 %Low4 - 8 %[facility] HEALTHMonocytes/100 WBC (Bld)0.25 %[facility] HEALTHMorphology Venancio (Bld) [Interp]Manual Differential Performed [facility]SA[facility] REYNOSOY HEALTHNeutrophils/100 WBC (Bld)67 %47 - 75 %[facility] HEALTHPlatelets (Bld) [#/Vol]255 10*3/uLBON [facility] HEALTHRBC (Bld) [#/Vol]4.94 10*6/uL4.0 - 5.2 m/uLBON [facility] HEALTHSegmented neutrophils/100 WBC (Bld)5.49 %[facility] HEALTHWBC other (Bld) [#/Vol] 8.2B[facility] HEALTHB[facility] HEALTHComprehensive Metabolic Panel on [id number] [Mass/Vol]4.0 g/dL3.5 - 5.2 g/dLBON SECOU[facility] [...] M.predicted MDRD (S/P/Bld) [Vol rate/Area]- PINFBON SECOURS [employer] TherapeuticsY HEALTHComment on above: These results are not [...] secretion. Glucose [Mass/Vol]79 mg/dL70 - 99 mg/dLBON [facility] HipChat [facility] MEDICAL CENTERInterpretation and review of laboratory resultsAbnormalBON [facility] HipChat [facility] MEDICAL CENTERPotassium [Moles/Vol]3.7 mmol/L3.7 - 5.3 mmol/LBON [facility] CENTERLocally HEALTHProtein [Mass/Vol] 6.9 g/dL6.4 - 8.3 g/dLBON [facility] HipChat [facility] MEDICAL CENTERSodium [Moles/Vol]137 mmol/L135 - 144 mmol/LBON [facility]PITALArriendas.cl [facility] MEDICAL CENTERUrea nitrogen [Mass/Vol]4 mg/dLLow6 - 20 mg/dL [facility] [place] Hip[employer] [facility] MEDICAL CENTERUrea nitrogen/Creatinine [Mass ratio]7 mg/mgLow9 - 20BON [facility] CENTERLocally [facility] MEDICAL CENTERLipaseon 33-51-5458Gopmvv [Catalytic activity/Vol]28 U/L13 - 60 U/LBON [facility] [place] TencentNo Panel Informationon 91-13-9132NXL [facility] [place] Hip[facility] CENTERXR CHEST (2 VW)on 08-11-2023 No acute cardiopulmonary [...] not seen. IMPRESSION: No acute cardiopulmonary disease [facility]ENTERRadiology Study observation (narrative)[facility] HipChat [facility] CENTERXR CHEST (2 VW)Ordered By: García Garcia on 54-42-1433TRR [employer] Work Phone: Established Visit (Gastroenterology)on 07-15-2023 Established [...] or Bone Graft Simulator, Implanted Breast Tissue Manager Ob, Glucose Monitor, or Neulasta Device? : No [...] spasm; CHEIKH = N; Verified Transmission to [employer] #16; Last Updated By: Sportsy; 07/15/2023 2:11:41 PM Sphincter of Oddi spasm Start: Dicyclomine HCl - 20 MG Oral Tablet; TAKE 1 TABLET BY MOUTH EVERY 6 HOURS NEEDED Rx By: Jing Troncoso; Dispense: 30 Days ; #:40 Tablet; Refill: 2;For: Sphincter of Oddi spasm; CHEIKH =N; Verified Transmission to [employer] #16; Last Updated By: Sportsy; :11:41 PM Provider Impressions Treat for presumptive [...] 2:52:04 PM Current Meds Medication NameInstruction Creon [id number] UNIT Oral Capsule Delayed Release ParticlesTAKE 1 CAPSULE 3 times daily Vitals Vital Signs Recorded: 35Oiv9731 01:32PM Height5 ft 4 in Cvdtbj878 lb 2.62 oz BMI Jhqdpwnbkh19.09 kg/m2 BSA Calculated1.71 Physical Exam Constitutional General appearance: In no acute distress . Eyes (more content not included)...Normal TouchworksVITAMIN D 1,25-DIHYDROXYon 66-46-3512SBTPFHT D 1,25-WASLYOFPW89.3 pg/hSMyvgyd68.9-79.3[facility] CenterComment on above:Result Comment: INTERPRETIVE INFORMATION: Vitamin D, 1,25-Dihydroxy This test is primarily indicated during patient evaluation for hypercalcemia and renal failure. A normal result does not rule out Vitamin D deficiency. The recommended test for diagnosing Vitamin D deficiency is Vitamin D 25-hydroxy. Performed By: [address] [address] [place] [address] Fudge Candy Maker: Ector King MD, PhDPerformed By: #### VTDDI #### [address] [place], [place] [address]KMD AND DIFFERENTIALon 02-01-2023% AUTOMATED IMMATURE GRAN0.3 % Normal0.0 - 0.9[facility] Medical CenterComment on above:Result Comment: Immature Granulocyte Count (IG) includes promyelocytes, myelocytes and metamyelocytes but does not include bands. Percent differential counts (%) should be interpreted in the context of the absolute cell counts (cells/L).Performed By: #### CBCDF #### [address] [address]Islxdodkf (Bld) [#/Vol]0.04 10*3/uLNormal0.00 - 0.10[facility] Medical CenterComment on above:Performed By: #### CBCDF #### [address] [address]Kdmumxsna/100 WBC (Bld)0.4 %Normal0.0 - 2.0[facility] Medical CenterComment on above:Performed By: #### CBCDF #### [address] [address]Fgeiabdewyp (Bld) [#/Vol]0.17 10*3/uLNormal0.00 - 0.70[facility] Medical CenterComment on above:Performed By: #### CBCDF #### [address] [address]Lqapukarzkk/100 WBC (Bld)1.8 %Normal0.0 - 6.0[facility] CenterComment on above:Performed By: #### CBCDF #### [address] [address]Xnfpijnelbo distribution width (RBC) [Ratio]13.9 %Coaroi89.5 - 14.5[facility] Medical CenterComment on above:Performed By: #### CBCDF #### [address] [address]Lrsqqyqysx (Bld) [Volume fraction]43.8 %Rhqpkr36.0 - 46.0[facility] CenterComment on above:Performed By: #### CBCDF #### [address] [address]Gaymdpowms (Bld) [Mass/Vol]14.5 g/xGTioemt12.0 - 16.0[facility] CenterComment on above:Performed By: #### CBCDF #### [address], [place] [address]Vwxojhexvil (Bld) [#/Vol]3.24 10*3/uLNormal1.20 - 4.80[facility] Medical CenterComment on above:Performed By: #### CBCDF #### [address] [address]Ioynpxsfvju/100 WBC (Bld)35.2 %Xkhwiq62.0 - 44.0[facility] Medical CenterComment on above:Performed By: #### CBCDF #### [address] [address]FUOY (RBC) [Mass/Vol]33.1 g/mZVrvrdm20.0 - 36.0[facility] CenterComment on above:Performed By: #### CBCDF #### [address] [address]LTB (RBC) [Entitic vol]101 rYKdry35 - 100[facility] CenterComment on above:Performed By: #### CBCDF #### [address] [address]Eronlpffr (Bld) [#/Vol]0.47 10*3/uLNormal0.10 - 1.00[facility] Medical CenterComment on above:Performed By: #### CBCDF #### [address] [address]Qbevkrksa/100 WBC (Bld)5.1 %Normal2.0 - 10.0[facility] Medical CenterComment on above:Performed By: #### CBCDF #### [address] [address]Pmqwyggwolg (Bld) [#/Vol]5.26 10*3/uLNormal1.20 - 7.70[facility] CenterComment on above:Result Comment: Percent differential counts (%) should be interpreted in the context of the absolute cell counts (cells/L).Performed By: #### CBCDF #### [address] [address]Oftppqooudp/100 WBC (Bld)57.2 %Fbvgfs89.0 - 80.0[facility] CenterComment on above:Performed By: #### CBCDF #### [address] [address]Lxgbiykjq (Bld) [#/Vol]358 10*3/wVRpjhou669 - 450[facility] CenterComment on above:Performed By: #### CBCDF #### [address] [address]KAH7.34 x10E12/LNormal4.00 - 5.20[facility] Comment on above:Performed By: #### CBCDF #### [address] [address]KOB (Bld) [#/Vol]9.2 10*3/uLNormal4.4 - 11.3[facility] CenterComment on above:Performed By: #### CBCDF #### [address] [address]OHHMCC DISEASE SEROLOGY PANELon 52-21-5630DEGQJVDXHR GLIADIN PEPTIDE IGG<8Odepwk1 - 14[facility] CenterComment on above:Result Comment: False negative Deamidated Gliadin Peptide Antibody, IgG results can occur in patients already adhering to a gluten-free diet. Tissue Transglutaminase Antibody, IgA is the preferred test for screening patients with suspected Celiac Disease.Performed By: #### CELP1 #### [facility] [address] [place], [place] [address]SUJ AB,IGG<9Rmuvsq1 - 14[facility] Medical CenterComment on above:Result Comment: False negative Tissue Transglutaminase Antibody, IgG results can occur in patients already adhering to a gluten-free diet. Tissue Transglutaminase Antibody, IgA is the preferred test for screening patients with suspected Celiac Disease.Performed By: #### CELP1 #### [facility] [address] [place], [place] [address]PIXYXYYCIZ GLIADIN PEPTIDE IGA9 U/mLNormal0 - 14[facility] CenterComment on above:Result Comment: False negative Deamidated Gliadin Peptide Antibody, IgA results can occur in patients already adhering to a gluten-free diet or patients with IgA deficiency. Tissue Transglutaminase Antibody, IgA is the preferred test for screening patients with suspected Celiac Disease.Performed By: #### CELP1 #### [facility] [address] [place], [place] [address]OLW AB,IGA<9Zmfytz3 - 14[facility] CenterComment on above:Result Comment: Celiac disease is unlikely. False negative Tissue Transglutaminase Antibody, IgA results can occur in approximately 10% of patients with celiac disease, patients already adhering to a gluten-free diet, or patients with IgA deficiency.Performed By: #### CELP1 #### [facility] [address] [place], [place] [address]FGGMMOETVRFQD PANELon 65-88-3404Ummzxkg [Mass/Vol]4.3 g/dL Normal3.4 - 5.0[facility] CenterComment on above:Performed By: #### CMP #### [address] [address]ECL [Catalytic activity/Vol]57 U/BYtdyub36 - 110[facility] CenterComment on above:Performed By: #### CMP #### [address] [address]HAC [Catalytic activity/Vol]12 U/LNormal7 - 45[facility] Medical CenterComment on above:Result Comment: Patients treated with Sulfasalazine may generate falsely decreased results for ALT.Performed By: #### CMP #### [address] [address]Yixes gap [Moles/Vol]11 mmol/RKuqudy78 - 20[facility] CenterComment on above:Performed By: #### CMP #### [address] [address]QIK [Catalytic activity/Vol]13 U/LNormal9 - 39[facility] CenterComment on above:Performed By: #### CMP #### [address] [address]Croalphna [Mass/Vol]0.6 mg/dLNormal0.0 - 1.2[facility] CenterComment on above:Performed By: #### CMP #### [address] [address]Lcowavr [Mass/Vol]9.2 mg/dLNormal8.6 - 10.3[facility] CenterComment on above:Performed By: #### CMP #### [address] [address]Xkkjntmr [Moles/Vol]106 mmol/RQgcdkz36 - 107[facility] Medical CenterComment on above:Performed By: #### CMP #### [address] [address]Ndulenujaq [Mass/Vol]0.64 mg/dLNormal0.50 - 1.05[facility] CenterComment on above:Performed By: #### CMP #### [address] [address]sWXO FEMALE>90Normal>90[facility] Medical CenterComment on above:Result Comment: CALCULATIONS OF ESTIMATED GFR ARE PERFORMED USING THE 2020 CKD-EPI STUDY REFIT EQUATION WITHOUT THE RACE VARIABLE FOR THE IDMS-TRACEABLE CREATININE METHODS. https://jasn.asnjournals.org/content/early//ASN.1163318620Yipeqtuho By: #### CMP #### [address] [address]Xhnytln [Mass/Vol]74 mg/eKZvcjrj51 - 99[facility] CenterComment on above:Performed By: #### CMP #### [address] [address]CHH2 (Bld) [Moles/Vol]26 mmol/KPnnfht36 - 32[facility] Medical CenterComment on above:Performed By: #### CMP #### [address] [address]Bnxaspqqu [Moles/Vol]3.6 mmol/LNormal3.5 - 5.3[facility] Medical CenterComment on above:Performed By: #### CMP #### [address] [address]Aqhujqz [Mass/Vol]6.6 g/dLNormal6.4 - 8.2[facility] Medical CenterComment on above:Performed By: #### CMP #### [address] [address]Qieglv [Moles/Vol]139 mmol/PVvwfgs466 - 145[facility] Medical CenterComment on above:Performed By: #### CMP #### [address] [address]Zker nitrogen [Mass/Vol]7 mg/dLNormal6 - 23[facility] Medical CenterComment on above:Performed By: #### CMP #### [address] [address]SJ ABDOMEN AND PELVIS W IV CONTRASTon 23-20-4174GH ABDOMEN AND PELVIS W IV CONTRASTMRN: [id number] Patient Name: SHIRIN BURGOS STUDY: CT ABDOMEN AND PELVIS W IV CONTRAST; 02/01/2023 11:47 am INDICATION: Pancreatitis K86.1: Chronic pancreatitis. COMPARISON: None. ACCESSION NUMBER(S): [id number] ORDERING CLINICIAN: JING TRONCOSO TECHNIQUE: CT of [...] Prior appendectomy. Electronically signed by: DUSTIN EDGE [facility] Abdomen and Pelvis with IV Contraston 02-99-0340JH Abdomen and Pelvis W contrast IVPlease click on the link to view the study imagesNoCarolyn [place]ille [address] Work Phone: CT Abdomen and Pelvis W contrast IVNoCarolyn [place] [address] Work Phone: Complete Blood Count + Differentialon 02-01-2023 Basophils/100 WBC (Bld)0.4 %0.0 - 2.0[place] [address] Work Phone: Erythrocyte distribution width (RBC) [Ratio]13.9 %See [place] [address] Work Phone: Comment on above:Reference Range: 11.5 - 14.5 Hematocrit (Bld) [Volume fraction]43.8 %See [place] [address] Work Phone: Comment on above:Reference Range: 36.0 - 46.0 Hemoglobin (Bld) [Mass/Vol]14.5 g/dLSee [place] [address] Work Phone: Comment on above:Reference Range: 12.0 - 16.0 Lymphocytes/100 WBC (Bld)35.2 %See [place] [address] Work Phone: Comment on above:Reference Range: 13.0 - 44.0MCHC (RBC) [Mass/Vol]33.1 g/dLSee [place] [address] Work Phone: Comment on above:Reference Range: 32.0 - 36.0MCV (RBC) [Entitic vol]101 fLabove high qlvassuyz73 - 100[place] [address] Work Phone: Monocytes/100 WBC (Bld)5.1 %2.0 - 10.0[place] [address] Work Phone: Neutrophils/100 WBC (Bld)57.2 %See [place] [address] Work Phone: Comment on above:Reference Range: 40.0 - 80.0Platelets (Bld) [#/Vol]358 10*3/uL150 - 450[place] [address] Work Phone: RBC (Bld) [#/Vol]4.34 {x10E12/L}See [place] [address] Work Phone: Comment on above:Reference Range: 4.00 - 5.20WBC (Bld) [#/Vol]9.2 10*3/uL4.4 - 11.3MNathan [place] [address] Work Phone: Complete Blood Count + Differential0.04 {x10E9/L}See [place] [address] Work Phone: Comment on above:Reference Range: 0.00 - 0.10Complete Blood Count + Differential0.17 {x10E9/L}See [place] [address] Work Phone: Comment on above:Reference Range: 0.00 - 0.70Complete Blood Count + Differential0.47 {x10E9/L}See [place] [address] Work Phone: Comment on above:Reference Range: 0.10 - 1.00Complete Blood Count + Differential3.24 {x10E9/L}See [place] [address] Work Phone: Comment on above:Reference Range: 1.20 - 4.80Complete Blood Count + Differential5.26 {x10E9/L}See [place] [address] Work Phone: Comment on above:Reference Range: 1.20 - 7.70 Percent differential counts (%) should be interpreted in the context of the absolute cell counts (cells/L).Complete Blood Count + Differential1.8 %0.0 - 6.0-[place] [address] Work Phone: Complete Blood Count + Differential0.3 %0.0 - 0.9[place] [address] Work Phone: Comment on above:Immature Granulocyte Count (IG) includes promyelocytes, myelocytes and metamyelocytes but does not include bands. Percent differential counts (%) should be interpreted in the context of the absolute cell counts (cells/L).IGG SUBCLASS 4on 28-05-8586AFJ SUBCLASS 4132 mg/dLNormal3 - 200[facility] Medical CenterComment on above:Performed By: #### IGGG4 #### [facility] [address] [place], [place] [address]Oqtfenqqyr - Chemistry and Chemistry - challengeon 02-01-2023 Albumin BCP dye [Mass/Vol]4.3 g/dL3.4 - 5.0-[place] [address] Work Phone: ALP [Catalytic activity/Vol]57 U/L33 - 110-[place] [address] Work Phone: ALT With P-5'-P [Catalytic activity/Vol]12 U/L7 - 45 [place] [address] Work Phone: Comment on above:Patients treated with Sulfasalazine may generate falsely decreased results for ALT.Anion gap [Moles/Vol]11 mmol/L10 - 20-[place] [address] Work Phone: AST With P-5'-P [Catalytic activity/Vol]13 U/L9 - 39 [place] [address] Work Phone: Bilirubin [Mass/Vol]0.6 mg/dL0.0 - 1.2MP-[place] [address] Work Phone: Calcium [Mass/Vol]9.2 mg/dL8.6 - 10.3MP-[place] [address] Work Phone: Chloride [Moles/Vol]106 mmol/L98 - 107MP-[place] [address] Work Phone: CO2 [Moles/Vol]26 mmol/L21 - 32-[place] [address] Work Phone: Creatinine [Mass/Vol]0.64 mg/dLSee BelowAnthony [place] [address] Work Phone: Comment on above:Reference Range: 0.50 - 1.05Glucose [Mass/Vol]74 mg/dL74 - 99MP-[place] [address] Work Phone: Potassium [Moles/Vol]3.6 mmol/L3.5 - 5.3MP-[place] [address] Work Phone: Protein [Mass/Vol]6.6 g/dL6.4 - 8.2MP-[place] [address] Work Phone: Sodium [Moles/Vol]139 mmol/L136 - 145[place] [address] Work Phone: Urea nitrogen [Mass/Vol]7 mg/dL6 - 23-[place] [address] Work Phone: Laboratory - Serology - non-microon 80-86-2115Fwtaopy peptide IgA IA Qn (S)9 U/mL0 - 14-[place] [address] Work Phone: Comment on above:False negative Deamidated Gliadin Peptide Antibody, IgA results can occur in patients already adhering to a gluten-free diet or patients with IgA deficiency. Tissue Transglutaminase Antibody, IgA is the preferred test for screening patients with suspected Celiac Disease.tTG IgA IA Qn (S)<10 - 14MP-[place] [address] Work Phone: Comment on above:Celiac disease is unlikely. False negative Tissue Transglutaminase Antibody, IgA results can occur in approximately 10% of patients with celiac disease, patients already adhering to a gluten-free diet, or patients with IgA deficiency.tTG IgG IA Qn (S)<10 - [place] [address] Work Phone: Comment on above:False negative Tissue Transglutaminase Antibody, IgG results can occur in patients already adheringto a gluten-free diet. Tissue Transglutaminase Antibody, IgA is the preferred test for screening patients with suspected Celiac Disease.No Panel Informationon 02-01-2023>90>90[place] [address] Work Phone: Comment on above:CALCULATIONS OF ESTIMATED GFR ARE PERFORMED USING THE 2020 CKD-EPI STUDY REFIT EQUATION WITHOUT THERACE VARIABLE FOR THE IDMS-TRACEABLE CREATININE METHODS.https://jasn.asnjournals.org/content//ASN.8325522684<10 - 14[place] [address] Work Phone: Comment on above:False negative Deamidated Gliadin Peptide Antibody, IgG results can occur in patients already adhering to a gluten-free diet. Tissue Transglutaminase Antibody, IgA is the preferred test for screeningpatients with suspected Celiac Disease.132 mg/dL3 - 200[place] [address] Work Phone: TSHon 93-17-7537IRN Qn0.60 m[IU]/LNormal0.44 - 3.98[facility] Medical CenterComment on above:Result Comment: TSH testing is performed using different testing methodology at [facility] than at other [facility]. Direct result comparisons should only be made within the same method.Performed By: #### TSH2 #### [facility] [address] [place], [place] [address]WLQ - Thyroid Stimulating Hormone, Serumon 34-95-8651SUY Qn0.60 m[IU]/LSee BelowAnthony [place] [address] Work Phone: Comment on above:Reference Range: 0.44 - 3.98 TSH testing is performed using different testing methodology at [facility] than at other system hospitals. Direct result comparisons should only be made within the same method.VITAMIN B12on 07-64-6537Foqkdfiem (Vitamin B12) [Mass/Vol]63 pg/kKHhm399 - 911[facility] Medical CenterComment on above: Performed By: #### VTB12 #### [facility] [address] [place], [place] [address]Ydpqvcg B12, Serumon 15-34-6451Bfqesqljr (Vitamin B12) [Mass/Vol]63 pg/mLbelow low rbzgerqju165 - 911MP-[facility] [address] Work Phone: [phone]-E 1,25-Dihydroxy, Levelon 31,25- dihydroxyvitamin D3 [Mass/Vol]64.3 pg/mL19.9-79.3MP-[facility] [address] Work Phone: Comment on above:INTERPRETIVE INFORMATION: Vitamin D, 1,25-DihydroxyThis test is primarily indicated during patient evaluation for hypercalcemia and renal failure. A normal result does not rule out Vitamin D deficiency. The recommended test for diagnosing Vitamin D deficiency is Vitamin D 25-hydroxy.Performed By: [facility] [place] [address]Ejelfncdyl Director: Ector King MD, PhDCholesterol [Mass/volume] in Serum or PlasmaOrdered By: Jan Carter on 94-27-9971Oebwoakfokm [Mass/Vol]128 mg/hE359-649NydwjpyhqRegency Hospital Cleveland EastComment on above:Chol less than 200 mg/dl low riskChol 201-239 mg/dl borderline riskChol 240 mg/dl and greater high riskCholesterol in LDL Calc [Mass/Vol]Ordered By: Jan Carter on 05-38-5241Mflztedapzv in LDL [Mass/Vol]88 mg/dL0-100[facility] Cleveland EastComment on above:LDL ATP III CLASSIFICATIONLDL less than 100 mg/dL OptimalLDL 100-129 mg/dL Near or above skszabsHRK484-755 mg/dL Borderline highLDL 160-189 mg/dL HighLDL greater than 189 mg/dL Very high Cholesterol in VLDL Calc [Mass/Vol]Ordered By: Jan Carter on 43-65-4410Evjktkamrhj in VLDL [Mass/Vol]14 mg/dLRegency Hospital Cleveland EastLipid Panelon 02-36-7704Tudueplrogi [Mass/Vol]128 mg/pWHpb767-266XpnqlmftvRegency Hospital Cleveland EastComment on above:Result Comment: Chol less than 200 mg/dl low risk Chol 201-239 mg/dl borderline risk Chol 240 mg/dl and greater high riskPerformed By: #### [id number], TSH3 wRFLX, LIPID #### [facility] [address] [place] [address] USACholesterol in HDL [Mass/Vol]26 mg/wGApb48-41WdfbmvfscRegency Hospital Cleveland EastComment on above:Result Comment: HDL CHOL ATP-III CLASSIFICATION Cardiovascular Risk HDL > or equal to 60 mg/dL LOW HDL < 40 mg/dL HIGHPerformed By: #### [id number], TSH3 wRFLX, LIPID #### [facility] [address] [place] [address] USACholesterol.total/Cholesterol in HDL [Mass ratio]4.9 {ratio}Normal<5.0[facility] Cleveland EastComment on above:Performed By: #### [id number], TSH3 wRFLX, LIPID #### [facility] [address] [place] [address] USALDL Cholesterol,Yxjlwqqwwo39 mg/dLNormal0-100[facility] Cleveland EastComment on above:Result Comment: LDL ATP III CLASSIFICATION LDL less than 100 mg/dL Optimal LDL 100-129 mg/dL Near or above optimal LDL 130-159 mg/dL Borderline high LDL 160-189 mg/dL High LDL greater than 189 mg/dL Very highPerformed By: #### [id number], TSH3 wRFLX, LIPID #### [facility] [address] [place] [address] USATriglyceride w/Mdclcf01 mg/yXNfaudc22-345DdxtokgswRegency Hospital Cleveland EastComment on above:Result Comment: TRIG ATP III CLASSIFICATION TRIG less than 150 mg/dL Normal TRIG 150-199 mg/dL Borderline high TRIG 200-500 mg/dL High TRIG greater than 500 mg/dL Very high Standard traceable to the Center for Disease Conrtrol and Prevention (CDC) test method.Performed By: #### [id number], TSH3 wRFLX, LIPID #### [facility] [address] [place] [address] USAVLDL WPJIHREJBBE58 mg/dLNormalRegency Hospital Cleveland EastComment on above:Performed By: #### [id number], TSH3 wRFLX, LIPID #### [facility] [address] [place] [address] USANo Panel InformationOrdered By: Jan Carter on 30-16-375971686784-Uxdoqyg Vitamin D Total16.8 ng/aS75-735ZegkcqxohRegency Hospital Cleveland EastComment on above:VITAMIN D STATUS 25([place])VITAMIN D RANGE (ng/mL) Deficient <20 Insufficient 20 to <12Smfdsbmypz80 to 100Reference: Bishnu MF,Jolene DUDLEY, Delphine LOGAN, et al. Evaluation,treatment, and prevention of vitamin D deficiency; an Endocrine Society clinical practice guideline. JCEM. 2010; 96 (7):1911-30.Serum or plasma high density lipoprotein (HDL) cholesterol measurementOrdered By: Jan Carter on 14-00-7443Fxhkyuunbko in HDL [Mass/Vol]26 mg/qO07-84QlnhnckdyRegency Hospital Cleveland EastComment on above:HDL CHOL ATP-III CLASSIFICATION Cardiovascular RiskHDL > or equal to 60 mg/dL LOWHDL < 40 mg/dL HIGHSerum or plasma total cholesterol/high density lipoprotein (HDL) cholesterol mass ratOrdered By: Jan Carter on 01-09-2023 Cholesterol.total/Cholesterol in HDL [Mass ratio]4.9 {ratio}<5.0[facility] Cleveland EastTS DL <= 0.005 mIU/L QnOrdered By: Jan Carter on 05-74-8402VTP Qn0.52 m[IU]/L0.45-5.33[facility] Cleveland EastThyroid Stim Hormone w/Rflxon 04-00-2744Hrmbbuy Stim Hormone w/Rflx0.52 u[iU]/mLNormal 0.45-5.33[facility] Cleveland EastComment on above:Performed By: #### [id number], TSH3 wRFLX, LIPID #### [facility] [address] [place] [address] USATriglyceride [Mass/volume] in Serum or PlasmaOrdered By: Jan Carter on 13-32-2592Xfryksxfkobg [Mass/Vol]72 mg/cV22-172 [facility] Cleveland EastComment on above:TRIG ATP III CLASSIFICATIONTRIG less than 150 mg/dL NormalTRIG 150-199 mg/dL Borderline highTRIG 200-500 mg/dL High TRIG greater than 500 mg/dL Very highStandard traceable to the Center for Disease Conrtrol and Prevention (CDC) test method. Vitamin D 25 Hydroxy Totalon 62-82-2086Aruxity D 25 Hydroxy Total16.8 ng/mLLow 30-100[facility] Cleveland EastComment on above:Result Comment: VITAMIN D STATUS 25([place])VITAMIN D RANGE (ng/mL) Deficient <20 Insufficient 20 to <30 Sufficient 30 to 100 Reference: Bishnu MF,Jolene NC, Delphine LOGAN, et al. Evaluation,treatment, and prevention of vitamin D deficiency; an Endocrine Society clinical practice guideline. JCEM. 2010; 96(7):1911-30. PERFORMED BY: [facility] [address] [place] [address] PATHOLOGIST SKI PATROLLER UNA CUENCA M.D.Performed By: #### [id number], TSH3 wRFLX, LIPID #### [facility] [address] [place] [address] USABasophils Auto (Bld) [#/Vol]Ordered By: Jan Carter on 82-55-0569Lpytayrwa (Bld) [#/Vol]0.1 10*3/uL0.0-0.2FKeenan Private HospitalBasophils/100 WBC Auto (Bld)Ordered By: Jan Carter on 47-12-5890Fggnczhiz/100 WBC (Bld)0.8 %.[facility] Cleveland EastBody fluid albumin measurement (mass/volume)Ordered By: Jan Carter on 13-62-2241Kzyfmas (Body fld) [Mass/Vol]3.3 g/dL3.2-5.5FKeenan Private HospitalCHEMISTRYOrdered By: SYSTEM SYSTEM on 48-66-8875Rtqwirnmn [Moles/Vol]3.9 mmol/LNormal3.5 - 5.3 mmol/LFTMC RemisolComplete Blood Count Auto Diffon 21-15-5878Ctveucfve (Bld) [#/Vol]0.1 10*3/uLNormal0.0-0.2FKeenan Private HospitalComment on above:Result Comment: PERFORMED BY: [place] [address] PATHOLOGIST SKI PATROLLER UNA CUENCA M.D.Performed By: #### CMP, CBC #### [place] [address] USABasophils/100 WBC (Bld)0.8 %Normal.[facility] Cleveland EastComment on above:Performed By: #### CMP, CBC #### [place] [address] USAEosinophils (Bld) [#/Vol]0.2 10*3/uLNormal0.0-0.45 [facility] Cleveland EastComment on above:Performed By: #### CMP, CBC #### [place] [address] USAEosinophils/100 WBC (Bld)1.9 %Normal.[facility] Cleveland EastComment on above:Performed By: #### CMP, CBC #### [place] [address] USAErythrocyte distribution width (RBC) [Ratio]12.4 %Normal 11.9-15.3FKeenan Private HospitalComment on above:Performed By: #### CMP, CBC #### [place] [address] USAHematocrit (Bld) [Volume fraction]39.0 %Ayvffu72.0-46.4 [facility] EastComment on above:Performed By: #### CMP, CBC #### [place] [address] USAHemoglobin (Bld) [Mass/Vol]13.1 g/aAMmgdqj47.8-15.4 [facility] EastComment on above:Performed By: #### CMP, CBC #### [facility] [address] [place] [address] USALymphocytes (Bld) [#/Vol]4.0 10*3/uLNormal1.00-4.8 [facility] EastComment on above:Performed By: #### CMP, CBC #### [facility] [address] [place] [address] USALymphocytes/100 WBC (Bld)48.4 %Normal.[facility] EastComment on above:Performed By: #### CMP, CBC #### [facility] [address] [place] [address] USAMCH (RBC) [Entitic mass]33.1 wjPoqjnq03.7-34.3FKeenan Private HospitalComment on above:Performed By: #### CMP, CBC #### [place] [address] USAMCV (RBC) [Entitic vol]98.4 fCLdrlrr44-620YnfrmjwgwRegency Hospital Cleveland EastComment on above:Performed By: #### CMP, CBC #### [place] [address] USAMean Corpuscular HGB Conc33.6 g/mYFoocev26.0-35.0[facility] EastComment on above:Performed By: #### CMP, CBC #### [facility] [address] [place] [address] USAMonocytes (Bld) [#/Vol]0.4 10*3/uLNormal0.0-0.8[facility] EastComment on above:Performed By: #### CMP, CBC #### [facility] [address] [place] [address] USAMonocytes/100 WBC (Bld)4.5 %Normal.[facility] EastComment on above:Performed By: #### CMP, CBC #### [facility] [address] [place] [address] USANeutrophils (Bld) [#/Vol]3.7 10*3/uLNormal1.8-7.7FKeenan Private HospitalComment on above:Performed By: #### CMP, CBC #### [facility] [address] [place] [address] USANeutrophils/100 WBC (Bld)44.4 %Normal.[facility] EastComment on above:Performed By: #### CMP, CBC #### [facility] [address] [place] [address] USANRBC%0.1 /100{WBC}Normal0-0.5FKeenan Private HospitalComment on above:Performed By: #### CMP, CBC #### [facility] [address] [place] [address] USAPlatelet mean volume (Bld) [Entitic vol]8.3 fLNormal 6.3-10.7FKeenan Private HospitalComment on above:Performed By: #### CMP, CBC #### [address] [address] USAPlatelets (Bld) [#/Vol]249 10*3/vDUfmrms026-094ChakxaqhvRegency Hospital Cleveland EastComment on above:Performed By: #### CMP, CBC #### [facility] [address] [place] [address] USARBC (Bld) [#/Vol]3.96 10*6/uLNormal3.60-5.00[facility] EastComment on above:Performed By: #### CMP, CBC #### [facility] [address] [place] [address] USAWBC (Bld) [#/Vol]8.3 10*3/uLNormal3.8-11.6FKeenan Private HospitalComment on above:Performed By: #### CMP, CBC #### [place] [id number] USAComprehensive Metabolic Panelon 97-90-1232Tyuzhcg [Mass/Vol]3.3 g/dLNormal3.2-5.5FKeenan Private HospitalComment on above:Performed By: #### CMP, CBC #### [facility] [address] [place] [address] USAAlbumin/Globulin [Mass ratio]1.5 {ratio}NormalRegency Hospital Cleveland EastComment on above:Performed By: #### CMP, CBC #### [facility] [address] [place] [address] USAALP [Catalytic activity/Vol]50 U/AWhythn76-54YewqskawwRegency Hospital Cleveland EastComment on above:Performed By: #### CMP, CBC #### [facility] [address] [place] [address] USAALT [Catalytic activity/Vol]15 U/LUtvmec97-16GhcizrunaRegency Hospital Cleveland EastComment on above:Performed By: #### CMP, CBC #### [facility] [address] [place] [address] USAAnion gap [Moles/Vol]10.7 mmol/LNormal6.0-15.0[facility] EastComment on above:Performed By: #### CMP, CBC #### [facility] [address] [place] [address] USAAST [Catalytic activity/Vol]14 U/SPidnwn49-97IkkkqaptpRegency Hospital Cleveland EastComment on above:Performed By: #### CMP, CBC #### [facility] [address] [place] [address] USABilirubin [Mass/Vol]0.7 mg/dLNormal0.3-1.2FKeenan Private HospitalComment on above:Performed By: #### CMP, CBC #### [facility] [address] [place] [id number] USACalcium [Mass/Vol]9.1 mg/dLNormal8.2-10.2FKeenan Private HospitalComment on above:Performed By: #### CMP, CBC #### [facility] [address] [place] [id number] USAChloride [Moles/Vol]110 mmol/JCgiigv97-530VfncvggzqRegency Hospital Cleveland EastComment on above:Performed By: #### CMP, CBC #### [facility] [address] [place] [address] USACO2 [Moles/Vol]22.4 mmol/SJnbyxq89.0-30.0[facility] EastComment on above:Performed By: #### CMP, CBC #### [facility] [address] [place] [address] USACreatinine [Mass/Vol]0.55 mg/dLNormal0.44-1.03[facility] EastComment on above:Performed By: #### CMP, CBC #### [facility] [address] [place] [address] USACreatinine Clr Calc Hvmlnwep421.63NoRegency Hospital Cleveland WestComment on above:Result Comment: PERFORMED BY: [place] [address] PATHOLOGIST SKI PATROLLER UNA CUENCA M.D.Performed By: #### CMP, CBC #### [facility] [address] [place] [address] USAEstimated GFR ( Rachna> 60St. Anthony's HospitalComment on above:Result Comment: GFR estimated reference range: According to KDOQI guidelines, <60 ml/min/1.73m2 is sufficient to diagnose a patient with chronic kidney disease.Performed By: #### CMP, CBC #### [facility] [address] [place] [address] USAEstimated GFR (Non- Am> 60St. Anthony's HospitalComment on above:Performed By: #### CMP, CBC #### [facility] [address] [place] [address] USAGlobulin (S) [Mass/Vol]2.2 g/dLNoRegency Hospital Cleveland WestComment on above:Performed By: #### CMP, CBC #### [facility] [address] [place] [address] USAGlucose [Mass/Vol]91 mg/yGWyvurn76-975QrhqgmidgRegency Hospital Cleveland EastComment on above:Result Comment: Random Glucose Reference Range is dependent on time and content of last meal. Glucose of more than 200 mg/dL in a nonstressed, ambulatory subject supports the diagnosis of Diabetes Mellitus. ADA recommended reference rangePerformed By: #### CMP, CBC #### [facility] [address] [place] [address] USAPotassium [Moles/Vol]4.1 mmol/LNormal3.5-5.1FKeenan Private HospitalComment on above:Performed By: #### CMP, CBC #### [facility] [address] [place] [address] USAProtein [Mass/Vol]5.5 g/dLLow6.1-7.9[facility] EastComment on above:Performed By: #### CMP, CBC #### [facility] [address] [place] [address] USASodium [Moles/Vol]139 mmol/QVcvkfu902-159DhhwqugxmRegency Hospital Cleveland EastComment on above:Performed By: #### CMP, CBC #### [facility] [address] [place] [address] USAUrea nitrogen [Mass/Vol]3 mg/dLLow9-23[facility] EastComment on above:Performed By: #### CMP, CBC #### [facility] [address] [place] [address] USACreatinine and Glomerular filtration rate.predicted panel (S/P/Bld)Ordered By: Jan Carter on 88-94-0615Msrrfttryl [Mass/Vol] 0.55 mg/dL0.44-1.03[facility] EastEosinophils Auto (Bld) [#/Vol]Ordered By: Jan Carter on 10-40-3668Jfddtavgzjw (Bld) [#/Vol] 0.2 10*3/uL0.0-0.45[facility] EastEosinophils/100 WBC Auto (Bld)Ordered By: Jan Carter on 15-97-0980Vaefaghzvse/100 WBC (Bld)1.9 %.[facility] EastErythrocyte distribution width Auto (RBC) [Ratio]Ordered By: Jan Carter on 63-80-8288Gtlmwaczzbp distribution width (RBC) [Ratio]12.4 %11.9-15.3FKeenan Private HospitalEstimated glomerular filtration rate (GFR) non- AmericanOrdered By: Jan Carter on 60-05-2701SJY/1.73 sq M.predicted among non-blacks MDRD (S/P/Bld) [Vol rate/Area]> 60 mL/MinRegency Hospital Cleveland EastGlobulin Calc (S) [Mass/Vol]Ordered By: Jan Carter on 74-30-9377Bydwajhu (S) [Mass/Vol] 2.2 g/dLRegency Hospital Cleveland EastHematocrit Auto (Bld) [Volume fraction] Ordered By: Jan Carter on 08-79-1288Nzzyjgqodj (Bld) [Volume fraction]39.0 %34.0-46.4FKeenan Private HospitalHemoglobin [Mass/volume] in BloodOrdered By: Jan Carter on 49-73-9623Dxaltomdqn (Bld) [Mass/Vol]13.1 g/dL11.8-15.4FKeenan Private HospitalLeukocytes [#/volume] corrected for nucleated erythrocytes in Blood by Automated coun Ordered By: Jan Carter on 38-33-6590PXG corrected for nucl RBC Auto (Bld) [#/Vol]8.3 10*3/uL3.8-11.6FKeenan Private HospitalLymphocytes Auto (Bld) [#/Vol]Ordered By: Jan Carter on 29-89-9562Vnvbtlousme (Bld) [#/Vol]4.0 10*3/uL1.00-4.8[facility] EastLymphocytes/100 WBC Auto (Bld)Ordered By: Jan Carter on 86-74-1651Uxhliicoazl/100 WBC (Bld)48.4 %.[facility] EastMCH Auto (RBC) [Entitic mass] Ordered By: Jan Carter on 30-79-8012KRO (RBC) [Entitic mass]33.1 pg 24.7-34.3FKeenan Private HospitalMCHC Auto (RBC) [Mass/Vol]Ordered By: Jan Carter on 06-75-6918URPU (RBC) [Mass/Vol]33.6 g/dL32.0-35.0 [facility] EastMCV Auto (RBC) [Entitic vol]Ordered By: Jan Carter on 73-93-9000DLX (RBC) [Entitic vol]98.4 aX39-265DyliatbjwRegency Hospital Cleveland EastMonocytes Auto (Bld) [#/Vol]Ordered By: Jan Carter on 80-60-2760Cwedwmcnf (Bld) [#/Vol]0.4 10*3/uL0.0-0.8[facility] EastMonocytes/100 WBC Auto (Bld)Ordered By: Jan Carter on 42-54-3328Ayfnzlgnm/100 WBC (Bld)4.5 %.[facility] EastNeutrophils Auto (Bld) [#/Vol]Ordered By: Jan Carter on 78-99-5147Bexnzcbkbwo (Bld) [#/Vol]3.7 10*3/uL1.8-7.7FKeenan Private HospitalNeutrophils/100 WBC Auto (Bld)Ordered By: Jan Carter on 43-11-7649Mfuoxlqzsvc/100 WBC (Bld)44.4 %.[facility] EastNo Panel InformationOrdered By: Jan Carter on 58-08-8225Wgjaqmlwq GFR ()> 60 mL/MinRegency Hospital Cleveland EastComment on above: GFR estimated reference range: According to KDOQI guidelines, <60 ml/min/1.73m2 is sufficient todiagnose a patient with chronic kidney disease.Pharmacy Creatinine Clearance (Saqk129.63[facility] Hospital Cleveland EastNucleated erythrocytes [Presence] in Blood by Automated countOrdered By: Jan Carter on 24-53-2198Rqyqxfkqp RBC Auto Ql (Bld)0.1 /100{WBC}0-0.5FKeenan Private HospitalPlatelet mean volume Auto (Bld) [Entitic vol]Ordered By: Jan Carter on 23-23-7505Hvpghdum mean volume (Bld) [Entitic vol]8.3 fL6.3-10.7FKeenan Private HospitalPlatelets Auto (Bld) [#/Vol]Ordered By: Jan Carter on 07-04-0376Qpfxovzdb (Bld) [#/Vol]249 10*3/mV491-436 [facility] EastProtein [Mass/volume] in Serum or PlasmaOrdered By: Jan Carter on 50-30-5747Dqjmimr [Mass/Vol]5.5 g/dL6.1-7.9 [facility] EastRBC Auto (Bld) [#/Vol]Ordered By: Jan Carter on 39-86-1591KUV (Bld) [#/Vol]3.96 10*6/uL3.60-5.00Southwest General Health Centererum or plasma alanine aminotransferase measurement without P-5'-P (enzymatic activiOrdered By: Jan Carter on 89-48-0086YIL No additional P-5'-P [Catalytic activity/Vol]15 U/E41-32DyugfvbuvSouthwest General Health Centererum or plasma albumin/globulin mass ratioOrdered By: Jan Carter on 23-36-6299Pjmujtu/Globulin [Mass ratio]1.5 {ratio}[facility] Health Centererum or plasma alkaline phosphatase measurement (enzymatic activity/volume)Ordered By: Jan Carter on 75-81-5266OGO [Catalytic activity/Vol]50 U/Z51-44DooixhzzzSouthwest General Health Centererum or plasma anion gap determinationOrdered By: Jan Carter on 01-08-2023 Anion gap [Moles/Vol]10.7 mmol/L6.0-15.0[facility] Health Centererum or plasma aspartate aminotransferase measurement (enzymatic activity/volume) Ordered By: Jan Carter on 99-79-4582MCQ [Catalytic activity/Vol]14 U/Q98-62YqztdqogrSouthwest General Health Centererum or plasma calcium measurement (mass/volume)Ordered By: Jan Carter on 22-55-0002Chhnnqh [Mass/Vol] 9.1 mg/dL8.2-10.2FOhioHealth Marion General Hospitalerum or plasma chloride measurement (moles/volume)Ordered By: Jan Carter on 01-08-2023 Chloride [Moles/Vol]110 mmol/I69-174DqwvnpayqSouthwest General Health Centererum or plasma glucose measurement (mass/volume)Ordered By: Jan Carter on 96-41-2024Mxqukhi [Mass/Vol]91 mg/wI24-326WvaqepfsgRegency Hospital Cleveland East Comment on above:ADA recommended reference rangeRandom Glucose Reference Range is dependent on time and content of last meal. Glucose of more than 200 mg/dL in a nonstressed, ambulatory subject supports the diagnosisof Diabetes Mellitus. Serum or plasma potassium measurement (moles/volume)Ordered By: Jan Carter on 40-06-3944Gvyjpozgo [Moles/Vol]4.1 mmol/L3.5-5.1FOhioHealth Marion General Hospitalerum or plasma sodium measurement (moles/volume)Ordered By: Jan Carter on 78-03-8502Luxbvy [Moles/Vol]139 mmol/Y761-852TroxbfgrySouthwest General Health Centererum or plasma total bilirubin measurement (mass/volume) Ordered By: Jan Carter on 11-60-1052Yfqiccnxv [Mass/Vol]0.7 mg/dL 0.3-1.2FOhioHealth Marion General Hospitalerum or plasma total carbon dioxide measurement (moles/volume)Ordered By: Jan Carter on 04-67-4201DS5 [Moles/Vol]22.4 mmol/L22.0-30.0[facility] Health Centererum or plasma urea nitrogen measurement (mass/volume)Ordered By: Jan Carter on 26-55-8506Srug nitrogen [Mass/Vol]3 mg/dL9-[facility] WBC Auto (Bld) [#/Vol]Ordered By: Jan Carter on 76-65-1002EDD (Bld) [#/Vol]8.3 10*3/uL3.8-11.6FKeenan Private HospitalCHEMISTRYOrdered By: SYSTEM SYSTEM on 33-81-3569Cpoojgqkdzict [Mass/Vol]microgram/mLLow15 - 30 mcg/mL [facility] RemisolAlbumin [Mass/Vol]3.8 g/dLNormal3.3 - 5.0 gm/dLFTMC Remisol Albumin/Globulin [Mass ratio]1.4 {ratio}Normal1.1 - 2.2[facility] RemisolALP [Catalytic activity/Vol]56 [iU]/wFvenvk16 - 98 Int._Unit/LFTMC RemisolALT No additional P-5'-P [Catalytic activity/Vol]14 [iU]/dNormal6 - 46 Int._Unit/LFTMC RemisolAnion gap [Moles/Vol]14 mmol/LNormal6 - 16 mEq/LFT[facility] RemisolAST [Catalytic activity/Vol]13 [iU]/dNormal5 - 43 Int._Unit/LFT[facility] RemisolBilirubin [Mass/Vol]0.6 mg/dLNormal0.0 - 1.1 mg/dLFTMC RemisolCalcium [Mass/Vol]8.8 mg/dL Low8.9 - 11.1 mg/dLFTMC RemisolChloride [Moles/Vol]108 mmol/NIrhqnj163 - 111 mmol/LFTMC RemisolCO2 [Moles/Vol]19 mmol/LLow21 - 31 mmol/LFT[facility] Remisol Creatinine [Mass/Vol]0.5 mg/dLNormal0.5 - 1.3 mg/dLFTMC RemisolEthanol [Mass/Vol]mg/dLNormal<=7mg/dLFTMC RemisolGFR/1.73 sq M.predicted among blacks MDRD (S/P/Bld) [Vol rate/Area]mL/min/1.73 b4Wypmth>=59mL/min/1.73 m2FT Chem S GFR/1.73 sq M.predicted among non-blacks MDRD (S/P/Bld) [Vol rate/Area] mL/min/1.73 h3Epyory>=59mL/min/1.73 m2[facility] Chem SGlobulin (S) [Mass/Vol]2.7 g/dL Normal1.4 - 4.0 gm/dLFT RemisolGlucose [Mass/Vol]127 mg/ySByyiwa24 - 199 mg/dL [facility] RemisolPotassium [Moles/Vol]3.1 mmol/LLow3.5 - 5.3 mmol/LFTMC Remisol Protein [Mass/Vol]6.5 g/dLNormal6.0 - 7.8 gm/dLFTMC RemisolSalicylates [Mass/Vol]mg/dLLow6 - 29 mg/dLFT RemisolSodium [Moles/Vol]138 mmol/DWvowcy192 - 145 mmol/LFTMC RemisolUrea nitrogen [Mass/Vol]mg/dLNormal5 - 21 mg/dLSHARE MEDICAL CENTER [facility] RemisolUrea nitrogen/Creatinine [Mass ratio]Unable to CalculateInvalid Interpretation [...] - 0.5 E9/L [facility] HemeAutoSSLymphocytes/100 WBC (Bld)18.1 %Muwgwp92.0 - 50.0 %[facility] HemeAutoSS Lymphocytes/Leukocytes Auto (Bld) [Pure # fraction]2.5 E9/LNormal1.0 - 4.0 E9/L [facility] HemeAutoSSMonocytes/100 WBC (Bld)3.4 %Low4.0 - 14.0 %[facility] HemeAutoSS Monocytes/Leukocytes Auto (Bld) [Pure # fraction]0.5 E9/LNormal0.2 - 1.0 E9/L [facility] HemeAutoSSNeutrophils/100 WBC (Bld)77.7 %High36.0 - 75.0 %[facility] HemeAutoSS Neutrophils/Leukocytes Auto (Bld) [Pure # fraction]10.9 E9/LHigh2.0 - 7.5 E9/L [facility] HemeAutoSSHEMATOLOGYOrdered By: Altagracia Arizmendi on 00-86-9376Fezxnfgdvnd distribution width (RBC) [Ratio]12.1 %Wkuccz86.9 - 14.2 %[facility] HemeAutoSS Hematocrit (Bld) [Volume fraction]42.0 %Pggpoi59.0 - 46.0 %[facility] HemeAutoSS Hemoglobin (Bld) [Mass/Vol]13.9 g/dNModnud64.0 - 16.0 gm/dLFTMC HemeAutoSSMCH (RBC) [Entitic mass]32.7 vnGgobkx83.0 - 34.0 pgFHILLCREST HOS[facility] [place] HemeAutoSSMCHC (RBC) [Mass/Vol]33.1 g/jTMygbdc40.4 - 36.0 gm/dLFT HemeAutoSSMCV (RBC) [Entitic vol] 98.8 wOTlaszz14.0 - 100.0 fLSHARE MEDICAL CENTER – ALVA HemeAutoSSPlatelet mean volume (Bld) [Entitic vol]8.1 fLNormal6.4 - 10.8 fLSHARE MEDICAL CENTER – [facility]VA HemeAutoSSPlatelets (Bld) [#/Vol]263.0 E9/L Wjxjzx356.0 - 500.0 E9/LFTMC HemeAutoSSRBC (Bld) [#/Vol]4.3 E12/LNormal4.3 - 5.9 E12/LFTMC HemeAutoSSWBC corrected for nucl RBC Auto (Bld) [#/Vol]14.0 E9/LHigh 4.0 - 11.0 E9/LFTMC HemeAutoSSMICRO OTHER TESTSOrdered By: Mamta Hurd on 40-27-1483Fjtba COV Int NEG CtlPass (01/07/23 11:44 PM)NormalSHARE MEDICAL [facility]ENTER [facility] Man SeroRapid COV Int POS CtlPass (01/07/23 11:44 PM)NormalSHARE MEDICAL CENTER – [facility] Man SeroSARS-CoV+SARS-CoV-2 (COVID-19) Ag IA.rapid Ql (Resp)Not Detected (01/07/23 11:44 PM)NormalNot DetectedSHARE MEDICAL CENTER – [facility] Man SeroSEROLOGYOrdered By: Rimma Erickson on 90-96-4013Tzez hCG QlNegative (01/07/23 4:13 PM)NormalSHARE MEDICAL CENTER – [facility]VA Man SeroInitial Visit (Gastroenterology)on 32-70-6517Hjtyrfu Visit (Gastroenterology)Diagnoses/Problems Assessed Chronic pancreatitis (577.1) (K86.1) Orders Chronic pancreatitis Start: Creon [id number] UNIT Oral Capsule Delayed Release Particles; TAKE 1 CAPSULE 3 times daily Rx By: Jing Troncoso; Dispense: 0 Days ; #:48 Capsule; Refill: 0;For: Chronic pancreatitis; CHEIKH = N;Dispense Sample CELIAC DISEASE SEROLOGY PANEL; Status:Active; Requested for:[id number]; Perform:Lab Services - Lab To Draw (Blood [...] family doctor regarding lung nodules noted at [facility]. Discussed smoking cessation, not inclined to begin at this time. Patient not currently involved in AA is to begin new program as she is recently moved to [place]. Check routine labs begin Creon 36,000 units [...] to the toilet bowl. History of Present Ohqqcpn08-rkvd-esx female with longstanding history of alcohol abuse quit drinking 7 months ago last drink was July 09, 2022. [facility]. History of prior hospitalizations and evaluation for pancreatitis. CTscan at that time showed calcifications along the pancreas with fatty liver no evidence of cirrhosis per patient unable to pull up imaging on [facility]. She presents today to establish [...] Vital Signs Recorded: 03Jan2023 02:50PM Heart Rate92 Sbfkmzmcarh98 Goqxpckx214 Diasto (more content not included)...NormalUH TouchworksXR CHEST (2 VW)on 12-29-2022 Nonacute two-view chest. [facility] CONSOLIDATEDEXAM: XR CHEST (2 VW) HISTORY: Reason for exam:->cough COMPARISON: Two-view chest from 12/21/2016. TECHNIQUE: Frontal and lateral films were done of the chest. FINDINGS: Trachea, mediastinum and heart size are unremarkable. The lungs are clear and well aerated. No infiltrate or nodule or effusion or pneumothorax is noted. Diaphragm and bony elements are intact. [facility] Jude Ozuna, DO - 12/29/2022 EXAM: XR [...] elements are intact. IMPRESSION: Nonacute two-view chest. Spotted Phone: radiology Study observation (narrative)Spotted Phone: XR CHEST (2 VW)Ordered By: Jude Tony on 71-91-6831QCV E-Semble Phone: Progress Noteson 25-67-4171Qzbrbumopemuz Authentication Interface Message TextEMERGENCY TRIAGE, TREAT AND TRANSPORT (ET3) DOCUMENTATION OF TELEHEALTH VISIT Date / Time: 10/31/2022 / 5 Name: Shirin Burgos : 1990 SSN: [id number] EMS Agency: [facility] [x] Verbal consent obtained [] [...] like to go by private vehicle to [facility]. Additional pertinent PMHx, SocHx, FamHx: PMH [...] Same ET3 Encounter Completed by: Pam Zuleta [facility] [employer] AMYLASEon 17-42-9102Lsxlkoh [Catalytic activity/Vol]124 U/LCritically ipoj95-026 The [facility] Va Medical CenterComment on above:Performed By: #### CMP, LAURYN, LIPA #### [facility] [address] [place] [address] [address] Nick Musa AUTO DIFFon 15-26-0501AREF #0.0 103/ulNormal0.0-0.1The [facility] Va Medical CenterComment on above:Performed By: #### CBC #### [facility] [address] [address] [address] Nick Rogerphils/100 WBC (Bld)0.3 %Normal0.2-2.0The [facility] Comment on above:Performed By: #### CBC #### [facility] [address] [address] [address] Romero ChangEAdrian #0.1 103/ulNormal0.0-0.7The [facility] Va Medical CenterComment on above: Performed By: #### CBC #### [facility] [address] [place] [address] Dr. Nick Pickardosinophils/100 WBC (Bld)0.7 %Critically low0.9-7.0The [facility] Va Medical CenterComment on above:Performed By: #### CBC #### [facility] [address] [place] [address] Dr. Nick Pickardrythrocyte distribution width (RBC) [Ratio]12.9 %Sourqn09.0-15.0 The [facility] Medical CenterComment on above:Performed By: #### CBC #### [facility] [address] [place] [address] Dr. Nick PerezHematocrit (Bld) [Volume fraction]45.7 %Fswrkl06.0-48.0The [facility] Medical CenterComment on above:Performed By: #### CBC #### [facility] [address] [place] [address] Dr. Nick PerezHemoglobin (Bld) [Mass/Vol]15.9 g/wDXktscf43.0-16.0The [facility] Medical CenterComment on above:Performed By: #### CBC #### [facility] [address] [place] [address] Dr. Nick Booth #0.04 10e3/ulCritically high0.00-0.03The [facility] Comment on above:Performed By: #### CBC #### [facility] [address] [place] [address] Dr. Nick Booth %0.3 %Normal0.0-0.5The [facility] Medical CenterComment on above: Performed By: #### CBC #### [facility] [address] [place] [address] Dr. Nick DiegoH #3.5 103/ulNormal1.2-3.8The [facility] Medical CenterComment on above:Performed By: #### CBC #### [facility] [address] [place] [address] Dr. iNck Alvesmphocytes/100 WBC (Bld)25.5 %Hjmuxx12.5-60.0The [facility] Medical CenterComment on above:Performed By: #### CBC #### [facility] [address] [place] [address] Dr. Nick James DIFF REQNONormalThe [facility] Va Medical CenterComment on above: Performed By: #### CBC #### [facility] [address] [place] [address] Dr. Nick Roe (RBC) [Entitic mass]34.8 pgCritically high26.7-34.0The [facility] Medical CenterComment on above:Performed By: #### CBC #### [facility] [address] [place] [address] Dr. Nick Roe (RBC) [Mass/Vol]34.8 g/aITtmkyr86.9-35.2The [facility] Medical CenterComment on above:Performed By: #### CBC #### [facility] [address] [place] [address] Dr. Nick Roe (RBC) [Entitic vol]100.0 fLCritically high81.0-99.0The [facility] Medical CenterComment on above:Performed By: #### CBC #### [facility] [address] [place] [address] Dr. Nick Taylor #0.7 103/ulNormal0.3-0.8The [facility] Medical CenterComment on above:Performed By: #### CBC #### [facility] [address] [place] [address] Dr. Nick Gusmanocytes/100 WBC (Bld)5.0 %Normal1.7-12.0[facility] Comment on above:Performed By: #### CBC #### [facility] [address] [place] [address] Dr. Nick Bunch #9.4 103/ulCritically high1.4-6.5The [facility] Comment on above:Performed By: #### CBC #### [facility] [address] [place] [address] Dr. Nick Villautrophils/100 WBC (Bld)68.2 %Ysbqlt85.0-75.0The [facility] Medical CenterComment on above:Performed By: #### CBC #### [facility] [address] [place] [address] Dr. Nick Jones mean volume (Bld) [Entitic vol]9.4 fLCritically low 9.5-13.5[facility]:Performed By: #### CBC #### [facility] [address] [place] [address] Dr. Nick PerezPLT260 103/[id number] [facility] CenterComment on above: Performed By: #### CBC #### [facility] [address] [place] [address] Dr. Nick PerezRBC4.57 106/ulNormal4.20-5.40[facility] CenterComment on above:Performed By: #### CBC #### [facility] [address] [place] [address] Dr. Nick PerezWBC13.8 103/ulCritically high4.0-11.0The [facility] Medical CenterComment on above:Performed By: #### CBC #### [facility] [address] [place] [address] Dr. Nick PerezCT ABD/PELV W CONon [id number] ABD/PELV W CONEXAMINATION: CT ABD/PELV W CON [...] Electronically authenticated by: DIANA HERNANDEZ Date: 2022-07-16 02:[address] [place] [address] URINE PROFILEon 25-68-1146Gjynqjdhx Ql (U)NegativeNormal NEGATIVEUk HealthcareComment on above:Performed By: #### ERUR #### [facility] [address] [place] [address] Dr. Nick PerezClarity ()CLEARNormalCLEARUk HealthcareComment on above: Performed By: #### ERUR #### [facility] [address] [place] [address] Dr. Nick Otero (U)LT. YELLOWNormalYELLOWUk HealthcareComment on above:Performed By: #### ERUR #### [facility] [address] [place] [address] Dr. Nick Schmid micrscopic examination will be performed if indicated. NormalUk HealthcareComment on above:Performed By: #### ERUR #### [facility] [address] [place] [address] Dr. Nick PerezGlucose Ql (U)NegativeNormalNEGATIVEUk HealthcareComment on above:Performed By: #### ERUR #### [facility] [address] [place] [address] Dr. Nick PerezHemoglobin Ql (U)NegativeNormalNEGATIVESelect Medical [facility]ty [facility], [facility] on above:Performed By: #### ERUR #### [facility] [address] [place] [address] Dr. Nick PerezKetones Ql (U)NegativeNormalNEGATIVEUk HealthcareComment on above:Performed By: #### ERUR #### [facility] [address] [place] [address] Dr. Nick PerezLEUKOCYTESNegativeNormalNEGATIVEUk HealthcareComment on above:Performed By: #### ERUR #### [facility] [address] [place] [address] Dr. Nick Brunotrciara Ql (U)NegativeNormalNEGATIVEThe [facility] CenterComment on above:Performed By: #### ERUR #### [facility] [address] [place] [address] Dr. Nick PerezpH (U)6.0 [pH]Normal5-9The [facility] CenterCombea[facility]ont [facility] on above: Performed By: #### ERUR #### [facility] [address] [place] [address] Dr. Nick PerezSPEC GRAVITY<=1.406Islsyogn8.005-<=1.025The [facility] Comment on above:Performed By: #### ERUR #### [facility] [address] [place] [address] Dr. Nick Pierre PROTEINNegativermalNEGATIVE/ TRACEThe [facility] Comment on above:Performed By: #### ERUR #### [facility] [address] [place] [address] Dr. Nick Zamarripa MICRO INDNOT INDICATEDNoalThDayton Osteopathic HospitalComment on above:Performed By: #### ERUR #### [facility] [address] [place] [address] Dr. Nick Hamptonbilinogen Qn (U)0.2 {Ta'U}/dLNormal0.2 - 1.0The [facility] CenterComment on above:Performed By: #### ERUR #### [facility] [address] [place] [address] Dr. Nick PerezLIPASEon 90-98-0751Rwugwn [Catalytic activity/Vol]99.0 U/LNormal 73.0-393.0The [facility] CenterComment on above:Performed By: #### CMP, LAURYN, LIPA #### [facility] [address] [place] [address] Dr. Nick PerezPREGNANCY URon 37-49-0741YVFJLXDMF, QUALNegativeNormalNEGATIVEThe [facility] CenterComment on above:Performed By: #### ERUR #### [facility] [address] [place] [address] Dr. Nick PerezPROF 14(COMP METB)on 58-70-5980Kapnptg [Mass/Vol]3.9 g/dLNormal 3.4-5.0The Danese HospitalComment on above:Performed By: #### CMP, LAURYN, LIPA #### [facility] [address] [place] [address] Dr. Nick PerezAlbumin/Globulin [Mass ratio]1.3 {ratio}NormalThe [facility] CenterComment on above:Performed By: #### CMP, LAURYN, LIPA #### [facility] [address] [place] [address] Dr. Nick Marley [Catalytic activity/Vol]76 U/RJkjzip40-906Tml [facility] CenterComment on above:Performed By: #### CMP, LAURYN, LIPA #### [facility] [address] [place] [address] Dr. Nick Bowie [Catalytic activity/Vol]24 U/RZvrsvi07-61Ccc [facility] CenterComment on above:Performed By: #### CMP, LAURYN, LIPA #### [facility] [address] [place] [address] Dr. Nick Salazar gap [Moles/Vol]12.8 mmol/LNormalThe [facility] on above:Performed By: #### CMP, LAURYN, LIPA #### [facility] [address] [place] [address] Dr. Nick Doran [Catalytic activity/Vol]19 U/CDnoqac34-62Nzv [facility] CenterComment on above:Performed By: #### CMP, LAURYN, LIPA #### [facility] [address] [place] [address] Dr. Yilan ChangBilirubin [Mass/Vol]1.6 mg/dLCritically high0.2-1.0The [facility] CenterComment on above:Performed By: #### CMP, LAURYN, LIPA #### [facility] [address] [place] [address] Dr. Nick PerezCalcium [Mass/Vol]9.4 mg/dLNormal8.5-10.1The [facility] Comment on above:Performed By: #### CMP, LAURYN, LIPA #### [facility] [address] [place] [address] Dr. Nick PerezChloride [Moles/Vol]103 mmol/OEgmysy61-887Hhr [facility] Comment on above:Performed By: #### CMP, LAURYN, LIPA #### [facility] [address] [place] [address] Dr. Nick PerezCO2 [Moles/Vol]25.2 mmol/QEwtrcy37.0-32.0The [facility] Comment on above:Performed By: #### CMP, LAURYN, LIPA #### [facility] [address] [place] [address] Dr. Nick PerezCreatinine [Mass/Vol]0.68 mg/dLNormal0.55-1.02The [facility] CenterComment on above:Performed By: #### CMP, LAURYN, LIPA #### [facility] [address] [place] [address] Dr. Nick PickardGFR-AF [place]IZ[place]>60Normal>=60The [facility] CenterComment on above:Performed By: #### CMP, LAURYN, LIPA #### [facility] [address] [place] [address] Dr. Nick PickardGFR-NON AF [place]IZ[place]>60Normal>=60The [facility] CenterComment on above:Performed By: #### CMP, LAURYN, LIPA #### [facility] [address] [place] [address] Dr. Nick PerezGlobulin (S) [Mass/Vol]2.9 g/dLNormalThe [facility] CenterComment on above:Performed By: #### CMP, LAURYN, LIPA #### [facility] [address] [address] [address] Nick PerezGlucose [Mass/Vol]99 mg/oBFrvdji22-608HauUk Healthcare Comment on above:Performed By: #### CMP, LAURYN, LIPA #### [facility] [address] [address] [address] Nick PerezPotassium [Moles/Vol]3.0 mmol/LCritically low3.5-5.1The [facility] CenterComment on above:Performed By: #### CMP, LAURYN, LIPA #### [facility] [address] [address] [address] Nick PerezProtein [Mass/Vol]6.8 g/dLNormal6.4-8.2[facility] Comment on above:Performed By: #### CMP, LAURYN, LIPA #### [facility] [address] [place] [address] Dr. Nick PerezSodium [Moles/Vol]138 mmol/NIcahiq051-290VvtUk Healthcare Comment on above:Performed By: #### CMP, LAURYN, LIPA #### [facility] [address] [address] [address] Nick PerezUrea nitrogen [Mass/Vol]3.0 mg/dLCritically low7.0-18.0Uk HealthcareComment on above:Performed By: #### CMP, LAURYN, LIPA #### [facility] [address] [place] [address] Dr. Nick PerezUrea nitrogen/Creatinine [Mass ratio]4.4 mg/mgNormalThe [facility] CenterComment on above:Performed By: #### CMP, LAURYN, LIPA #### [facility] [address] [place] [address] Dr. Nick Luz 125on 48-52-1581Yernvm Antigen (CA) 1257.8 U/mLNormal0.0-38.1 The [facility] CenterComment on above:Result Comment: [employer] Electrochemiluminescence Immunoassay (ECLIA) . Values obtained with different assay methods or kits cannot be used interchangeably. Results cannot be interpreted as absolute evidence of the presence or absence of malignant disease.Performed By: #### ERUR #### [facility] [address] [place] [address] Dr. Nick PerezUS PELVIS AND TRANSVAGon 10-27-6724BU PELVIS AND TRANSVAG EXAMINATION: US PELVIS AND [...] Electronically authenticated by: AURA MENARD Date: 2022-06-18 13:12[facility] CenterCT [facility]/PELV W CONon 09-37-1459GB ABD/PELV W CONEXAM: CT ABD/PELV W CON [...] authenticated by: FAROOQ LOPEZ Date: 2022-05-29 23:15NormalThe [facility] AUTO DIFFon 40-72-9551UTQJ #0.0 103/ulNormal0.0-0.1The [facility] CenterComment on above:Performed By: #### CBC #### [facility] [address] [place] [address] Dr. Nick Rogerphils/100 WBC (Bld)0.6 %Normal0.2-2.0[facility] Comment on above:Performed By: #### CBC #### [facility] [address] [address] [address] Nick Ledesma #0.0 103/ulNormal0.0-0.7The [facility] CenterComment on above: Performed By: #### CBC #### [facility] [address] [place] [address] Dr. Yilan ChangEosinophils/100 WBC (Bld)0.0 %Critically low0.9-7.0The [facility] CenterComment on above:Performed By: #### CBC #### [facility] [address] [place] [address] Dr. Nick Pickardrythrocyte distribution width (RBC) [Ratio]14.7 %Wkmjgv90.0-15.0 The [facility] CenterComment on above:Performed By: #### CBC #### [facility] [address] [place] [address] Dr. Nick PerezHematocrit (Bld) [Volume fraction]41.7 %Vieocj18.0-48.0The [facility] CenterComment on above:Performed By: #### CBC #### [facility] [address] [place] [address] Dr. Nick PerezHemoglobin (Bld) [Mass/Vol]14.5 g/yNCqghos16.0-16.0The [facility] CenterComment on above:Performed By: #### CBC #### [facility] [address] [place] [address] Dr. Nick Booth #0.01 10e3/ulNormal0.00-0.03The [facility] CenterComment on above:Performed By: #### CBC #### [facility] [address] [place] [address] Dr. Nick PerezIG %0.3 %Normal0.0-0.5The [facility] CenterComment on above: Performed By: #### CBC #### [facility] [address] [place] [address] Dr. Nick AlvesMPH #0.8 103/ulCritically low1.2-3.8The [facility] Comment on above:Performed By: #### CBC #### [facility] [address] [place] [address] Dr. Nick Alvesmphocytes/100 WBC (Bld)23.0 %Eygbcm28.5-60.0The [facility] CenterComment on above:Performed By: #### CBC #### [facility] [address] [place] [address] Dr. Nick James DIFF REQNONormalThe [facility] CenterComment on above: Performed By: #### CBC #### [facility] [address] [place] [address] Dr. Nick Roe (RBC) [Entitic mass]33.6 edWxpegt90.7-34.0The [facility] CenterComment on above:Performed By: #### CBC #### [facility] [address] [place] [address] Dr. Nick Roe (RBC) [Mass/Vol]34.8 g/vBJfhqyo82.9-35.2The [facility] CenterComment on above:Performed By: #### CBC #### [facility] [address] [place] [address] Dr. Nick Roe (RBC) [Entitic vol]96.5 rPEkszlu27.0-99.0The [facility] CenterComment on above:Performed By: #### CBC #### [facility] [address] [place] [address] Dr. Nick Taylor #0.3 103/ulNormal0.3-0.8The [facility] CenterComment on above:Performed By: #### CBC #### [facility] [address] [place] [address] Dr. Nick Gusmanocytes/100 WBC (Bld)8.8 %Normal1.7-12.0The [facility] Comment on above:Performed By: #### CBC #### [facility] [address] [place] [address] Dr. Nick Bunch #2.2 103/ulNormal1.4-6.5The [facility] CenterComment on above:Performed By: #### CBC #### [facility] [address] [place] [address] Dr. Nick Villautrophils/100 WBC (Bld)67.3 %Wkgyui74.0-75.0The [facility] CenterComment on above:Performed By: #### CBC #### [facility] [address] [address] [address] Nick PerezPlatelet mean volume (Bld) [Entitic vol]9.6 fLNormal9.5-13.5The [facility] on above:Performed By: #### CBC #### [facility] [address] [place] [address] Dr. Nick PerezPLT194 103/miBhmrmq854-531Kbp [facility] on above: Performed By: #### CBC #### [facility] [address] [place] [address] Dr. Nick PerezRBC4.32 106/ulNormal4.20-5.40The [facility] on above:Performed By: #### CBC #### [facility] [address] [place] [address] Dr. Nick PerezWBC3.3 103/ulCritically low4.0-11.0The [facility] on above:Performed By: #### CBC #### [facility] [address] [place] [address] Dr. Nick PerezCovid-19 PCR (CVDTBH)on 57-24-6502GBDP-CoV-2 (COVID-19) RNA LAURA+probe Ql (Unsp spec)DetectedCritically abnormalNOT DETECTEDThe [facility] on above:Result Comment: This test is not yet approved or cleared by the [place] FDA. When there are no FDA-approved or cleared tests available, and other criteria are met, FDA can make tests available under an emergency access mechanism called an Emergency Use Authorization (EUA). The EUA for this test is supported by the [place] of Health and Human Service's declaration that [...] longer be used).Performed By: #### ERUR #### [facility] [address] [place] [address] Dr. Nick Valadez URINE PROFILEon 58-60-6793Mkwtkqvrm Ql (U)NegativeNormal NEGATIVEUk HealthcareComment on above:Performed By: #### ERUR #### [facility] [address] [place] [address] Dr. Nick PerezClarity (U)CLEARNormalCLEARUk HealthcareComment on above: Performed By: #### ERUR #### [facility] [address] [place] [address] Dr. Nick Jeromelor (U)YELLOWNormalYELLOWUk HealthcareComment on above: Performed By: #### ERUR #### [facility] [address] [place] [address] Dr. Nick Schmid micrscopic examination will be performed if indicated. NormalUk HealthcareComment on above:Performed By: #### ERUR #### [facility] [address] [place] [address] Dr. Nick PerezGlucose Ql (U)NegativeNormalNEGATIVEUk HealthcareComment on above:Performed By: #### ERUR #### [facility] [address] [place] [address] Dr. Nick PerezHemoglobin Ql (U)NegativeNormalNEGATIVESelect Medical [facility]ty [facility], [facility] on above:Performed By: #### ERUR #### [facility] [address] [place] [address] Dr. Nick PerezKetones Ql (U)NegativeNormalNEGATIVEUk HealthcareComment on above:Performed By: #### ERUR #### [facility] [address] [place] [address] Dr. Nick PerezLEUKOCYTESNegativeNormalNEGATIVEUk HealthcareCombeaumont hospital on above:Performed By: #### ERUR #### [facility] [address] [place] [address] Dr. Nick PerezNitrite Ql (U)NegativeNormalNEGATIVEUk HealthcareComment on above:Performed By: #### ERUR #### [facility] [address] [place] [address] Dr. Nick PerezpH (U)6.0 [pH]Normal5-9The [facility] CenterComment on above: Performed By: #### ERUR #### [facility] [address] [place] [address] Dr. iNck PerezSPEC GRAVITY1.572Vmfxyp1.005-<=1.025The [facility] CenterComment on above:Performed By: #### ERUR #### [facility] [address] [place] [address] Dr. Nick Pierre PROTEINNegativeNormalNEGATIVE/ TRACEThe [facility] Comment on above:Performed By: #### ERUR #### [facility] [address] [place] [address] Dr. Nick Zamarripa MICRO INDNOT INDICATEDNormalThe [facility] CenterComment on above:Performed By: #### ERUR #### [facility] [address] [place] [address] Dr. Nick Hamptonbilinogen Qn (U)1.0 {Ta'U}/dLNormal0.2 - 1.0The [facility] CenterComment on above:Performed By: #### ERUR #### [facility] [address] [place] [address] Dr. Nick PerezLIPASEon 21-37-6926Jnghsl [Catalytic activity/Vol]109.0 U/LNormal 73.0-393.0The [facility] CenterComment on above:Performed By: #### BMP, LIPA #### [facility] [address] [place] [address] Dr. Nick PerezPROF CHEM 8 (BAS METB)on 35-25-5312Fflty gap [Moles/Vol]12.9 mmol/LNormalThe [facility] CenterComment on above:Performed By: #### BMP, LIPA #### [facility] [address] [place] [address] Dr. Nick PerezCalcium [Mass/Vol]8.8 mg/dLNormal8.5-10.1The [facility] Comment on above:Performed By: #### BMP, LIPA #### [facility] [address] [address] [address] Nick PerezChloride [Moles/Vol]103 mmol/FPdzhri21-198Yjx [facility] Comment on above:Performed By: #### BMP, LIPA #### [facility] [address] [address] [address] Nick PerezCO2 [Moles/Vol]24.6 mmol/KUhhmdn89.0-32.0The [facility] Comment on above:Performed By: #### BMP, LIPA #### [facility] [address] [address] [address] Nick PerezCreatinine [Mass/Vol]0.72 mg/dLNormal0.55-1.02The [facility] CenterComment on above:Performed By: #### BMP, LIPA #### [facility] [address] [address] [address] Nick PickardGFR-AF [place]IZ[place]>60Normal>=60The [facility] CenterComment on above:Performed By: #### BMP, LIPA #### [facility] [address] [address] [address] Nick PickardGFR-NON AF [place]>60Normal>=60The [facility] CenterComment on above:Performed By: #### BMP, LIPA #### [facility] [address] [address] [address] Nick PerezGlucose [Mass/Vol]70 mg/dLCritically jjb03-065Jku [facility] CenterComment on above:Performed By: #### BMP, LIPA #### [facility] [address] [address] [address] Nick PerezPotassium [Moles/Vol]3.5 mmol/LNormal3.5-5.1[facility] Comment on above:Performed By: #### BMP, LIPA #### [facility] [address] [address] [address] Nick PerezSodium [Moles/Vol]137 mmol/DYuhbtr981-680QugUk Healthcare Comment on above:Performed By: #### BMP, LIPA #### [facility] [address] [address] [address] Nick PerezUrea nitrogen [Mass/Vol]5.0 mg/dLCritically low7.0-18.0Uk HealthcareComment on above:Performed By: #### BMP, LIPA #### [facility] [address] [address] [address] Nick PerezUrea nitrogen/Creatinine [Mass ratio]6.9 mg/mgNoUC West Chester HospitalComment on above:Performed By: #### ROSALIND, LIPA #### [facility] [address] [address] [address] Nick PerezXR ANKLE LT MIN 3 Von 21-98-3943LL ANKLE LT MIN 3 VEXAM: XR ANKLE [...] Electronically authenticated by: IMAN QUEZADA Date: 2022-04-22 11:46[facility] CenterXR Chest 2 Views*on 75-31-4290SP Chest 2 Views*FINDINGS: No change from August 24, 2021. No acute cardiac or pulmonary disease is identified. No worrisome mass lesions or infiltrates are seen. No pulmonary edema or pneumothorax is present. Cardiac silhouette size is normal. Skeletal structures are unremarkable. IMPRESSION: No acute cardiac or pulmonary disease. Report reported and signed by Dakota Horowitz on 12/27/2021 1434NormalNorthern South Dakota Medical SpecialistQ - CHLAMYDIA TRACHOMATIS/NEISSERIA GONORRHOEAE RNA TMAon 28-17-5086UGPQMNVOZ TRACHOMATIS RNA, TMA, UROGENITALNot detectedNormalNOT DETECTEDNorthern Tennova Healthcare SpecialistComment on above:Order Comment: [facility] performed at: [employer], [employer] [facility], [address] , [address] [place], [place], [address] [place] [address], [employer]: Michael Grewal MD [facility] Date/Time: [facility] Results Received Date/Time: [facility] Reported Date/Time: FASTING: NOPerformed By: #### [id number], %SBNOCULI, 3020X #### [facility] Default [address] [place], [place] [id number] NOTENormalNoUniversity Hospitals St. [facility] SpecialistComment on above:Order Comment: [facility] performed at: [employer], [employer] [facility], [address] [facility], [address] [place] [address], [address] [place] [address], [employer]: Michael Grewal MD [facility] Date/Time: [facility] Results Received Date/Time: [facility] Reported Date/Time: FASTING: NOResult Comment: The analytical performance characteristics of this assay, when used to test SurePath(TM) specimens have been determined by [employer]. The modifications have not been cleared or approved by the FDA. This assay has been validated pursuant to the CLIA regulations and is used for clinical purposes. For additional information, please refer to https://education.Epiclist/faq/MQA958 (This link is being provided for information/ educational purposes only.)Performed By: #### [id number], %SBNOCULI, 3020X #### [facility] Default [address] [place], [place] [address]BTKFDMMOU GONORRHOEAE RNA, TMA, UROGENITALNot detectedNormalNOT DETECTEDNoGalion Community HospitalComment on above:Order Comment: [facility] performed at: [employer], [employer] [facility], [address] [facility], [address] [place] [address], [address] [place] [address], [employer]: Michael Grewal MD [facility] Date/Time: [facility] Results Received Date/Time: [facility] Reported Date/Time: FASTING: NOPerformed By: #### [id number], %SBNOCULI, 3020X #### [facility] Default [address] [place], [place] [address]S - UR CULT REFLEXon [id number] URINE CULTURESEE NOTE NormalFirelands Regional Medical Center SpecialistComment on above:Order Comment: [facility] performed at: [facility], [employer] [facility], [address] [facility], [address] [place] [address], [address] [place] [address], [employer]: Michael Grewal MD [facility] Date/Time: [facility] Results Received Date/Time: [facility] Reported Date/Time: FASTING: NOResult Comment: NO CULTURE INDICATEDPerformed By: #### [id number], %SBNOCULI, 3020X #### [facility] Default [address] [place], [place] [address]K - URINALYSIS,COMPLETE,WITH REFLEX TO CULTUREon 11-02-2021 Appearance (U)CLEARNormalCLEARFirelands Regional Medical Center SpecialistComment on above: Order Comment: [facility] performed at: [employer], [facility] [facility], [address] [place] [address], [address] [place] [address], [address] [place] [address], [employer]: Michael Grewal MD [facility] Date/Time: [facility] Results Received Date/Time: [facility] Reported Date/Time: FASTING: NOPerformed By: #### [id number], %SBNOCULI, 3020X #### [facility] Default [address] [place], [place] [address]ZSJCNEJWZFCE SEENNormalNONE SEENFirelands Regional Medical Center Specialist Comment on above:Order Comment: [facility] performed at: [employer], [facility] [facility], [address] [facility], [address] [place] [address], [address] [place] [address], [employer]: Michael Grewal MD [facility] Date/Time: [facility] Results Received Date/Time: [facility] Reported Date/Time: FASTING: NOPerformed By: #### [id number], %SBNOCULI, 3020X #### [facility] Default [address] [place], [place] [address]Txnspjsqm Ql (U)NegativeNormalNEGATIVENortabrazo west campusn [facility] SpecialistComment on above:Order Comment: [facility] performed at: Q, [employer], [address] , [address] [place] [address], [address] [place] [address], [employer]: Michael Grewal MD [facility] Date/Time: [facility] Results Received Date/Time: [facility] Reported Date/Time: FASTING: NOPerformed By: #### [id number], %SBNOCULI, 3020X #### [facility] Default [address] [place], [place] [address]Vtniy (U)YELLOWNormalYELLOWrtWyandot Memorial HospitalNurse Intern Comment on above:Order Comment: [facility] performed at: [facility] [facility], [employer] [facility], [address] , [address] [place] [address], [address] [place] [address], [employer]: Michael Grewal MD [facility] Collection Date/Time: [facility] Results Received Date/Time: [facility] Reported Date/Time: FASTING: NOPerformed By: #### [id number], %SBNOCULI, 3020X #### [facility] Default [address] [place], [place] [address]Xxyaxfy Ql (U)NegativeNormalNEGATIVErtSumma Health [facility] Medical SpecialistComment on above:Order Comment: [facility] Testing performed at: Q, [employer] [facility], [address] , [address] [place] [address], [address] [place] [address], [employer] Maker: Michael Grewal MD [facility] Collection Date/Time: [facility] Results Received Date/Time: [facility] Reported Date/Time: FASTING: NOPerformed By: #### [id number], %SBNOCULI, 3020X #### [facility] Default [address] [place], [place] [address]MCOETAG CASTNONE SEENNormalNONE SEENFirelands Regional Medical Center SpecialistComment on above:Order Comment: [facility] Testing performed at: [employer], [facility], [address] [place] [address], [address] [place] [address], [address] [place] [address], [employer] Maker: Michael Grewal MD [facility] Collection Date/Time: [facility] Results Received Date/Time: [facility] Reported Date/Time: FASTING: NOPerformed By: #### [id number], %SBNOCULI, 3020X #### [facility] Default [address] [place], [place] [address]Hbpjkdv Ql (U)NegativeNormalNEGPremier Health Atrium Medical Center SpecialistComment on above:Order Comment: Quest Testing performed at: [facility], [facility], [address] [place] [address], [address] [place] [address], [address] [place] [address], [employer] Maker: Michael Grewal MD [facility] Collection Date/Time: [facility] Results Received Date/Time: [facility] Reported Date/Time: FASTING: NOPerformed By: #### [id number], %SBNOCULI, 3020X #### [facility] Default [address] [place], [place] [address]Epdlgxssh esterase Test strip Ql (U)NegativeNormalNEGATIVE Protestant HospitalComment on above:Order Comment: [facility] Testing performed at: [employer], [facility], [address] [place] [address], [address] [place] [address], [address] [place] [address], [employer] Maker: Michael Grewal MD [facility] Collection Date/Time: [facility] Results Received Date/Time: [facility] Reported Date/Time: FASTING: NOPerformed By: #### [id number], %SBNOCULI, 3020X #### [facility] Default [address] [place], [place] [address]Kmleick Ql (U)NegativeNormalNEGATIVEFirelands Regional Medical Center SpecialistComment on above:Order Comment: [facility] Testing performed at: [employer], [facility], [address] [facility], [address] [place] [address], [address] [place] [address], [employer] Maker: Michael Grewal MD [facility] Collection Date/Time: [facility] Results Received Date/Time: [facility] Reported Date/Time: FASTING: NOPerformed By: #### [id number], %SBNOCULI, 3020X #### [facility] Default [address] [place], [place] [address]IRLJET BLOODNegativeNormalNEGATIVENoUniversity Hospitals St. [facility] SpecialistComment on above:Order Comment: [facility] Testing performed at: [employer], [facility], [address] [facility], [address] [place] [address], [address] [place] [address], [employer] Maker: Michael Grewal MD [facility] Collection Date/Time: [facility] Results Received Date/Time: [facility] Reported Date/Time: FASTING: NOPerformed By: #### [id number], %SBNOCULI, 3020X #### [facility] Default [address] [place], [place] [address]mF (U)6.5 [pH]Normal5.0-8.0NoAnaheim [facility] Nurse Intern Comment on above:Order Comment: [facility] Testing performed at: [employer], [facility], [address] [place] [address], [address] [place] [address], [address] [place] [address], [employer] Maker: Michael Grewal MD [facility] Collection Date/Time: [facility] Results Received Date/Time: [facility] Reported Date/Time: FASTING: NOPerformed By: #### [id number], %SBNOCULI, 3020X #### [facility] Default [address] [place], [place] [address]Yshdbpf Ql (U)NegativeNormalNEGATIVENortSumma Health [facility] Campus Medical SpecialistComment on above:Order Comment: [facility] Testing performed at: [employer], [facility], [address] [facility], [address] [place] [address], [address] [place] [address], [employer]: Michael Grewal MD [facility] Collection Date/Time: [facility] Results Received Date/Time: [facility] Reported Date/Time: FASTING: NOPerformed By: #### [id number], %SBNOCULI, 3020X #### [facility] Default [address] [place], [place] [address]CTZXYRY SEENNormal< OR = 2[facility] SpecialistComment on above:Order Comment: Quest Testing performed at: [facility], [facility], [address] [facility], [address] [place] [address], [address] [place] [address], [employer]: Michael Grewal MD [facility] Collection Date/Time: [facility] Results Received Date/Time: [facility] Reported Date/Time: FASTING: NOPerformed By: #### [id number], %SBNOCULI, 3020X #### [facility] Default [address] [place], [place] [address]Ojluloku gravity (U) [Rel density]1.257Ryrrda7.001-1.035Nortabrazo west campusn [facility] SpecialistComment on above:Order Comment: [facility] Testing performed at: [employer], [facility], [address] [facility], [address] [place] [address], [address] [place] [address], [employer]: Michael Grewal MD [facility] Collection Date/Time: [facility] Results Received Date/Time: [facility] Reported Date/Time: FASTING: NOPerformed By: #### [id number], %SBNOCULI, 3020X #### [facility] Default [address] [place], [place] [address]TQIDRTBM EPITHELIAL CELLSNONE SEENNormal< OR = 5[facility] SpecialistComment on above:Order Comment: [facility] Testing performed at: [employer], [facility], [address] [facility], [address] [place] [address], [address], [employer]: Michael Grewal MD [facility] Collection Date/Time: [facility] Results Received Date/Time: [facility] Reported Date/Time: FASTING: NOPerformed By: #### [id number], %SBNOCULI, 3020X #### [facility] Default [address] [place], [place] [address]ANXJHZD SEENNormal< OR = 5[facility] SpecialistComment on above:Order Comment: [facility] Testing performed at: [employer], [employer] [facility], [address], [address] [facility], [place], [address], [employer] Maker: Michael Grewal MD [facility] Collection Date/Time: [facility] Results Received Date/Time: [facility] Reported Date/Time: FASTING: NOPerformed By: #### [id number], %SBNOCULI, 3020X #### [facility] Default [address] [place], [place] [address]WG Foot 2 Views Righton [id number] Foot 2 Views RightHISTORY: Fall x 5 days FINDINGS: No cortical or stress fracture or evidence of fracture healing. No focal soft tissue swelling. Minimal arthritis. IMPRESSION: 1. No fracture. Report reported and signed by Dakota Horowitz on 11/02/2021 1540NormalNorthern Rockville General HospitalCULTURE URINEon [id number] URINECulture Observations: GB STREP FAXED ER/NOTFD KAL@1015/11/01/21/RK [...] 0.5 S F Tetracycline >=16 R FNormalThe [facility] Va Medical CenterComment on above:Performed By: #### ERUR #### [facility] [address] [place] [address] Dr. Nick Musa AUTO DIFFon [id number] #0.0 103/ulNormal0.0-0.1The [facility] Va Medical CenterComment on above:Performed By: #### ERUR #### [facility] [address] [place] [address] Dr. Nick PerezBasophils/100 WBC (Bld)0.2 %Normal0.2-2.0The [facility] Comment on above:Performed By: #### ERUR #### [facility] [address] [place] [address] Dr. Nick Ledesma #0.1 103/ulNormal0.0-0.7The [facility] Va Medical CenterComment on above: Performed By: #### ERUR #### [facility] [address] [place] [address] Dr. Nick Pickardosinophils/100 WBC (Bld)0.5 %Critically low0.9-7.0The [facility] Va Medical CenterComment on above:Performed By: #### ERUR #### [facility] [address] [place] [address] Dr. Nick Pickardrythrocyte distribution width (RBC) [Ratio]13.5 %Cwkfzo00.0-15.0 Uk HealthcareComment on above:Performed By: #### ERUR #### [facility] [address] [place] [address] Dr. Nick PerezHematocrit (Bld) [Volume fraction]45.9 %Eqrbec17.0-48.0Uk HealthcareComment on above:Performed By: #### ERUR #### [facility] [address] [place] [address] Dr. Nick PerezHemoglobin (Bld) [Mass/Vol]15.5 g/xFXtaics61.0-16.0Uk HealthcareComment on above:Performed By: #### ERUR #### [facility] [address] [place] [address] Dr. Nick Booth #0.08 10e3/ulCritically high0.00-0.03The [facility] Comment on above:Performed By: #### ERUR #### [facility] [address] [place] [address] Dr. Nick Booth %0.5 %Normal0.0-0.5The [facility] Va Medical CenterComment on above: Performed By: #### ERUR #### [facility] [address] [place] [address] Dr. Nick Starr #3.1 103/ulNormal1.2-3.8The Danese HospitalComment on above:Performed By: #### ERUR #### [facility] [address] [place] [address] Dr. Nick Diegohocytes/100 WBC (Bld)17.3 %Critically low20.5-60.0The [facility] Va Medical CenterComment on above:Performed By: #### ERUR #### [facility] [address] [place] [address] Dr. Nick PetersonUAL DIFF REQNONormalThe [facility] Va Medical CenterComment on above: Performed By: #### ERUR #### [facility] [address] [place] [address] Dr. Nick Galindo (RBC) [Entitic mass]33.3 lrEzykvy08.7-34.0The [facility] Medical CenterComment on above:Performed By: #### ERUR #### [facility] [address] [place] [address] Dr. Nick Roe (RBC) [Mass/Vol]33.8 g/aWUjchkz37.9-35.2The [facility] Medical CenterComment on above:Performed By: #### ERUR #### [facility] [address] [place] [address] Dr. Nick Hoover (RBC) [Entitic vol]98.7 rMCitquu00.0-99.0The [facility] Medical CenterComment on above:Performed By: #### ERUR #### [facility] [address] [place] [address] Dr. Nick Taylor #0.5 103/ulNormal0.3-0.8The [facility] Medical CenterComment on above:Performed By: #### ERUR #### [facility] [address] [place] [address] Dr. Nick Gusmanocytes/100 WBC (Bld)3.0 %Normal1.7-12.0[facility] Comment on above:Performed By: #### ERUR #### [facility] [address] [place] [address] Dr. Nick Bunch #13.9 103/ulCritically high1.4-6.5The [facility] Comment on above:Performed By: #### ERUR #### [facility] [address] [place] [address] Dr. Nick Villautrophils/100 WBC (Bld)78.5 %Critically high43.0-75.0The [facility] Medical CenterComment on above:Performed By: #### ERUR #### [facility] [address] [place] [address] Dr. Nick Jones mean volume (Bld) [Entitic vol]9.2 fLCritically low 9.5-13.5The [facility] Medical CenterComment on above:Performed By: #### ERUR #### [facility] [address] [place] [address] Dr. Nick PerezPLT346 103/qpVhruij041-560Ual [facility] Medical CenterComment on above: Performed By: #### ERUR #### [facility] [address] [place] [address] Dr. Nick PerezRBC4.65 106/ulNormal4.20-5.40The [facility] Medical CenterComment on above:Performed By: #### ERUR #### [facility] [address] [place] [address] Dr. Nick PerezWBC17.7 103/ulCritically high4.0-11.0The [facility] Medical CenterComment on above:Performed By: #### ERUR #### [facility] [address] [address] [address] Nick Sousa ABD/PELVIS WO CONon [id number] ABD/PELVIS WO CONEXAMINATION: CT ABD/PELVIS WO CON, [...] Electronically authenticated by: DIANA GODOY Date: 2021-10-29 11:03[facility] URINE PROFILEon [id number] Ql (U)NegativeNormal NEGATIVEUk HealthcareComment on above:Performed By: #### CHRISTIANO ERUR #### [facility] [address] [address] [address] Nick Barkerarity (U)CLEARNormalCLEARUk HealthcareComment on above: Performed By: #### CHRISTIANO, ERUR #### [facility] [address] [address] [address] Nick Otero (U)LT. YELLOWNormalYELLOWUk HealthcareComment on above:Performed By: #### CHRISTIANO ERUR #### [facility] [address] [address] [address] Nick Schmid micrscopic examination will be performed if indicated. NormalUk HealthcareComment on above:Performed By: #### CHRISTIANO ERUR #### [facility] [address] [address] [address] Nick PerezGlucose Ql (U)NegativeNormalNEGATIVEUk HealthcareComment on above:Performed By: #### CHRISTIANO ERUR #### [facility] [address] [address] [address] Nick PerezHemoglobin Ql (U)LARGEAbnormalNEGATIVESelect Medical [facility]ty [facility], [facility] on above:Performed By: #### CHRISTIANO, ERUR #### [facility] [address] [address] [address] Nick PerezKetones Ql (U)NegativeNormalNEGATIVEUk HealthcareComment on above:Performed By: #### CHRISTIANO ERUR #### [facility] [address] [address] [address] Nick MinerOCYTESLARGEAbnormalNEGATIVEUk HealthcareComment on above:Performed By: #### CHRISTIANO ERUR #### [facility] [address] [address] [address] Nick Mckay Ql (U)NegativeNormalNEGATIVEThe [facility] Medical CenterComment on above:Performed By: #### CHRISTIANO ERUR #### [facility] [address] [place] [address] Dr. Nick PerezpH (U)7.0 [pH]Normal5-9Uk HealthcareComment on above: Performed By: #### CHRISTIANO ERUR #### [facility] [address] [place] [address] Dr. Nick PerezSPEC GRAVITY<=1.721Labxwpwy8.005-<=1.025The [facility] Comment on above:Performed By: #### CHRISTIANO ERUR #### [facility] [address] [place] [address] Dr. Nick Pierre PROTEINNegativeNormalNEGATIVE/ TRACEThe [facility] Comment on above:Performed By: #### CHRISTIANO ERUR #### [facility] [address] [place] [address] Dr. Nick PerezUR MICRO INDINDICATEDNormalThe [facility] Medical CenterComment on above: Performed By: #### HUBERT ALVARADOR #### [facility] [address] [place] [address] Dr. Nick Ballesterosgen Qn (U)0.2 {Ta'U}/dLNormal0.2 - 1.0Uk HealthcareComment on above:Performed By: #### CHRISTIANO ERUR #### [facility] [address] [place] [address] Dr. Nick PerezPROF CHEM 8 (BAS METB)on 76-99-4830Vyubr gap [Moles/Vol]13.0 mmol/LNormalThe [facility] Medical CenterComment on above:Performed By: #### ERUR #### [facility] [address] [place] [address] Dr. Nick PerezCalcium [Mass/Vol]9.0 mg/dLNormal8.4-10.2[facility] Comment on above:Performed By: #### ERUR #### [facility] [address] [address] [address] Nick PerezChloride [Moles/Vol]98 mmol/QRndihc19-351Efn [facility] Comment on above:Performed By: #### ERUR #### [facility] [address] [address] [address] Nick PerezCO2 [Moles/Vol]26.7 mmol/ZRzhyqt05.0-30.0The [facility] Comment on above:Performed By: #### ERUR #### [facility] [address] [address] [address] Nick PerezCreatinine [Mass/Vol]0.62 mg/dLNormal0.52-1.04The [facility] Medical CenterComment on above:Performed By: #### ERUR #### [facility] [address] [place] [address] Dr. Romero ChangEGFR-AF [place] CITIZ[place]>60Normal>=60The [facility] Medical CenterComment on above:Performed By: #### ERUR #### [facility] [address] [address] [address] Nick PickardGFR-NON AF [place] CITIZ[place]>60Normal>=60The [facility] Medical CenterComment on above:Performed By: #### ERUR #### [facility] [address] [address] [address] Nick PerezGlucose [Mass/Vol]109 mg/dLCritically ylsr79-457Okp [facility] Medical CenterComment on above:Performed By: #### ERUR #### [facility] [address] [address] [address] Nick PerezPotassium [Moles/Vol]3.7 mmol/LNormal3.4-5.0The [facility] Comment on above:Performed By: #### ERUR #### [facility] [address] [address] [address] Nick PerezSodium [Moles/Vol]134 mmol/LCritically uqq969-760Qyg [facility] CenterComment on above:Performed By: #### ERUR #### [facility] [address] [address] [address] Nick Dee nitrogen [Mass/Vol]6.0 mg/dLCritically low7.0-17.0The [facility] on above:Performed By: #### ERUR #### [facility] [address] [address] [address] Nick Dee nitrogen/Creatinine [Mass ratio]9.7 mg/mgNoUC West Chester HospitalComment on above:Performed By: #### ERUR #### [facility] [address] [place] [address] Dr. Nick Downs MICROSCOPIC ONLYon 27-22-5913QLBHCOUVBPFGMKanqkcvmAOTF SEEN The [facility] CenterCombeaumont hospital on above:Performed By: #### ERUR #### [facility] [address] [place] [address] Dr. Nick Matthews identified Cx Nom (U)INDICATEDOhioHealth Arthur G.H. Bing, MD, Cancer CenterCombeaumont hospital on above:Performed By: #### ERUR #### [facility] [address] [place] [address] Dr. Nick Hollingsworth SEENNormalNONE SEENUk HealthcareCombeaumont hospital on above:Performed By: #### ERUR #### [facility] [address] [place] [address] Dr. Nick Unger LM Nom (Urine sed)NONE SEENNormalNONE SEENUk HealthcareCombeaumont hospital on above:Performed By: #### ERUR #### [facility] [address] [place] [address] Dr. Nick Benavidesthelial cells LM Ql (Urine sed)FEWAbnormalNONE SEEN /RAREThe [facility] on above:Performed By: #### ERUR #### [facility] [address] [place] [address] Dr. Nick OrellanaE SEENCameron Regional Medical CenteralNONE SEENUk HealthcareCombeaumont hospital on above:Performed By: #### ERUR #### [facility] [address] [place] [address] Dr. Nick PerezMwcryKCC67-71Woiolwwa6-9Hpe [facility] CenterComment on above: Performed By: #### ERUR #### [facility] [address] [place] [address] Dr. Nick PerezZwtysOIM14-56FqojqqbwIGJD SEENThe [facility] Medical CenterComment on above: Performed By: #### ERUR #### [facility] [address] [place] [address] Dr. Nick Perez Vital Signs Date TimeVital SignValuePerforming NjzaqnnyjEpbjnqhh14-07-2725 16:21-0400Body mass index (BMI) [Ratio]28.49 kg/r1TytlmfnwJanina Sosahart [employer] Work Phone: [phone] HospitalIyvxbmtliz35-33-0974 16:21-0400Body temperature 97.3 [degF]Janina Sosahart [employer] Work Phone: [phone] HospitalXxnlsprabb50-62-8063 16:21-0400Body .3 kg Janina Mustafat [employer] Work Phone: [phone] HospitalKgclisnrxg83-99-5263 16:21-0400Diastolic blood mm[Hg]Janinaconnie Sosahart [employer] Work Phone: [phone] HospitalDmukeubgci09-85-5011 16:21-0400Heart rate80 /min Janina Sosahart [employer] Work Phone: [phone] HospitalYcuxxvxibc15-07-2371 16:-7369ZqG9% (BldA) [Mass fraction]97 %Janina Sosahart [employer] Work Phone: [phone] HospitalWngsyrqdxe57-42-2704 16:21-0400Systolic blood tyxwlxoi069 mm[Hg]Janinaconnie Sosahart [employer] Work Phone: [phone] HospitalMaqxlakcqe33-16-7703 15:26-0400Body pogefz963.6 cmBreann Majors [employer] Work Phone: [phone] HospitalSxpvloyuvo65-91-9383 15:26-0400Body mass index (BMI) [Ratio]28.43 kg/l0Mcxekf Majors [employer] Work Phone: [facility] HospitalJqrhlgfvld24-10-0833 15:26-0400Body temperature 98.71 [degF]Anaya Morton [employer] Work Phone: [phone] [place], [place] [address]Kvmfuagwiu35-11-8185 15:26-0400Body .12 kgAnaya Morton [employer] Work Phone: [phone] [place], [place] [address]Dwfgjghfrv07-61-1913 15:26-0400Diastolic blood tjwawrhg07 mm[Hg]Anaya Morton [employer] Work Phone: [phone] [place], [place] [address]Hhpphygldr10-73-8266 15:26-0400Heart rate70 /min Anaya Morton [employer] Work Phone: [phone] [place], [place] [address]Mnjjwlnqzo47-84-5227 15:26-3821XnY5% (BldA) [Mass fraction]96 %Anaya Morton [employer] Work Phone: [phone] [place], [place] [address]Xnwanopyiw24-97-8774 15:26-0400Systolic blood tocjbnwk246 mm[Hg]Anaya Morton [employer] Work Phone: [phone] [place], [place] [address]Vkcaiyxlgn92-41-3642 15:35-0400Body wwimex655.6 cmJaniya Raygoza MD Work Phone: [phone] [place], [place] [address]Docctjtejx21-97-2579 15:35-0400Body mass index (BMI) [Ratio]28.84 kg/m2Janiya Raygoza MD Work Phone: [phone] [place], [place] [address]Mghukddijl75-79-1540 15:35-0400Body kebnrd47.2 kg Janiya Raygoza MD Work Phone: [phone] [place], [place] [address]Dhrcxdwjla07-36-2388 15:35-0400Diastolic blood ozednqdk80 mm[Hg]Janiya Raygoza MD Work Phone: [phone] [place], [place] [address]Lmmyebxmtx35-73-1332 15:35-0400Heart rate80 /min Janiya Raygoza MD Work Phone: [phone] [place], [place] [address]Anquapalsy59-97-9838 15:35-0400Respiratory rate18 /minJaniya Raygoza MD Work Phone: [phone] [place], [place] [address]Wofgakmypl01-35-0532 15:35-0400Systolic blood mm[Hg]Janiya Raygoza MD Work Phone: [facility] HospitalIqsagbgrox31-95-4199 15:55-0400Body jsyhri624.6 Angelo Kelley MD Work Phone: bon [facility]05-20-2025 15:55-0400Body mass index (BMI) [Ratio]30.9 kg/v3UtblrulKiet Kelley MD Work Phone: Gef [facility]05-20-2025 15:55-0400Body fdajxlipfbr18.5 [degF]Kiet Kelley MD Work Phone: bon [facility]05-20-2025 15:55-0400Body erlmsn50.65 kgKiet Kelley MD Work Phone: bon [facility]05-20-2025 15:55-0400Diastolic blood dnmukxwc22 mm[Hg]Kiet Kelley MD Work Phone: bon [facility]05-20-2025 15:55-0400Heart rate73 /minKiet Kelley MD Work Phone: bon [facility]05-20-2025 15:55-0400 Respiratory rate18 /minKiet Kelley MD Work Phone: bon [facility]05-20-2025 15:55-0062UaO7% (BldA) [Mass fraction]98 %Kiet Kelley MD Work Phone: Nrl [facility]05-20-2025 15:55-0400Systolic blood tkruwhse167 mm[Hg]Kiet Kelley MD Work Phone: bon [facility]01-09-2025 14:54-0500Body ilbecs506.6 Danilo MCLEOD Work Phone: noSaint John's Regional Health CenterEazmaoqaoh57-58-8889 14:54-0500Body mass index (BMI) [Ratio]29.49 kg/m2Amy [place] PA Work Phone: [facility] HospitalGvlywsewzg36-79-7490 14:54-0500Body .93 kgLauryn Booker PA Work Phone: [facility] HospitalZaeuqckrjo63-17-5540 14:54-0500Diastolic blood mm[Hg]Lauryn Booker PA Work Phone: [facility] HospitalAaajwlzspl18-74-5970 14:54-0500Systolic blood kaocnfkt322 mm[Hg]Lauryn Booker PA Work Phone: [facility] HospitalNgqozwnbvi60-41-9725 08:02-0500Body .4 cmChristwaleska KingSchultz [employer] Work Phone: [facility] HospitalWjiivqpuga49-53-5301 08:02-0500Body mass index (BMI) [Ratio]26.06 kg/u8Ppivycr Schultz [employer] Work Phone: [facility] HospitalMdwpgaogfe22-06-0787 08:02-0500Body uilkrm21.12 kgChristy Schultz [employer] Work Phone: [facility] HospitalXpbypsdddu87-27-5094 08:02-0500Diastolic blood fuhyunms43 mm[Hg]Sarah Schultz [employer] Work Phone: [facility] HospitalYhgbfnzzhe71-92-5398 08:02-0500Heart rate68 /min Sarah Schultz [employer] Work Phone: [facility] HospitalDgwngniebv53-31-7350 08:02-0500Respiratory rate18 /minChristy Schultz [employer] Work Phone: [place] [address]Othakmulmn41-66-8247 08:02-9129HdT7% (BldA) [Mass fraction]98 %Sarah Schultz [employer] Work Phone: [facility] HospitalRffowsulhf58-80-6405 08:02-0500Systolic blood mm[Hg]Sarah Schultz [employer] Work Phone: [facility] HospitalJmyshldarx25-61-0993 14:22-8792WsA0% (BldA) [Mass fraction]96 %Veselin Warren MD Work Phone: bon [facility] HospitalBluemate Associates [facility] HospitalLocalyte.comPisfkd22-66-8558 13:22-0500Diastolic blood jnwqyfam87 mm[Hg]Kiet Kelley MD Work Phone: bon [facility] HospitalBluemate Associates [facility] HospitalTivity Hgblza40-33-3320 13:22-0500Systolic blood cjjwvmwo708 mm[Hg]Kiet Kelley MD Work Phone: b[facility] HospitalBluemate Associates [facility] HospitalLocalyte.comQjgzav26-91-4285 13:09-0500Body uuexxdaasvo85.49 [degF]Kiet Kelley MD Work Phone: bon [facility] HospitalBluem[facility] HospitalLocalyte.comUsjtmd22-26-4078 13:02-0500Body .6 Angelo Kelley MD Work Phone: bon [facility] HospitalBluemate Associates [facility] HospitalDjvgiq18-65-7601 13:02-0500Body mass index (BMI) [Ratio]27.46 kg/l6KodyesvKiet Kelley MD Work Phone: bon [facility] HospitalBluem[facility] HospitalTivity Ltdngl99-01-6247 13:02-0500Body .58 kgKiet Kelley MD Work Phone: bon [facility] HospitalBluem[facility] Associates [facility] HospitalLocalyte.comVzmqfq21-90-1356 13:02-0500Heart qnpo300 /minKiet Kelley MD Work Phone: bon [facility] HospitalBluem[facility] Associates [facility] HospitalLocalyte.comCkfvgh93-52-0507 13:02-0500 Respiratory rate18 /minKiet Kelley MD Work Phone: bon [facility] HospitalBluem[facility] HospitalLocalyte.comTfpcvo52-41-8855 09:57-0400Body .6 Angelo Kelley MD Work Phone: bon [facility] CENTERLinear Dynamics Energy09-13-2024 09:57-0400Body mass index (BMI) [Ratio]25.75 kg/h3FldrplhKiet Kelley MD Work Phone: bon [facility] CENTERLinear Dynamics Energy09-13-2024 09:57-0400Body dqmgdiacroa18.01 [degF]Kiet Kelley MD Work Phone: bon [facility]09-13-2024 09:57-0400Body gmlokz35.04 kgKiet Kelley MD Work Phone: bon [facility]09-13-2024 09:57-0400Diastolic blood vxztrakg91 mm[Hg]Kiet Kelley MD Work Phone: bon [facility]09-13-2024 09:57-0400Heart rate93 /Mayco Kelley MD Work Phone: bon [facility]09-13-2024 09:57-0400 Respiratory rate19 /Mayco Kelley MD Work Phone: bon [facility]09-13-2024 09:57-0245CuA1% (BldA) [Mass fraction]99 %Kiet Kelley MD Work Phone: bon [facility]09-13-2024 09:57-0400Systolic blood mm[Hg]Kiet Kelley MD Work Phone: bon [facility]06-28-2024 20:22-0400Body elaewlyrhjk08.7 [degF]Hernandez Dave [facility]06-28-2024 20:22-0400 Diastolic blood hjxjbnia87 mm[Hg]Hernandez Dave [facility]06-28-2024 20:22-0400Heart cvku870 /minNorosibel Dave [facility]06-28-2024 20:22-0400 Respiratory rate18 /minNoah Dave [facility]06-28-2024 20:22-1435SfL0% (BldA) [Mass fraction]97 %Hernandez Dave [facility]06-28-2024 20:22-0400 Systolic blood menndhbv126 mm[Hg]Hernandez Acosta [facility]04-29-2024 13:18-0400Body flysifgvilc12.4 [degF]Erwin Dalal MD Work Phone: BON [facility]04-29-2024 13:18-0400Diastolic blood wosmwmbh87 mm[Hg]Erwin Dalal MD Work Phone: BON [facility]04-29-2024 13:18-0400Heart rate68 /David Dalal MD Work Phone: [facility]04-29-2024 13:18-0400 Respiratory rate20 /David Dalal MD Work Phone: BON [facility]04-29-2024 13:18-9039NiH4% (BldA) [Mass fraction]99 %Erwin Dalal MD Work Phone: BON [facility]04-29-2024 13:18-0400Systolic blood juukdbxz926 mm[Hg]Erwin Dalal MD Work Phone: BON [facility]04-16-2024 13:31-0400Body xohymsvbffj01.06 [degF]Bari Alicea [facility]04-16-2024 13:31-0400 Diastolic blood qbifyxrx98 mm[Hg]Bari Alicea [facility]04-16-2024 13:31-0400Heart ofkl963 /Micky Alicea [facility]04-16-2024 13:31-0400 Respiratory rate16 /minBari Alicea [facility]04-16-2024 13:31-1388VmD8% (BldA) [Mass fraction]98 %Bari Alicea [address] [place], [place] [address]04-16-2024 13:31-0400 Systolic blood paspdcwn908 mm[Hg]Bari Alicea [address] [place], [place] 4997103-27-2024 10:34-0400Heart rate68 /bryannaColby Sky [address] [place], [place] 4997103-27-2024 10:34-0400 Respiratory rate18 /minColby Sky [address] [place], [place] 4997103-27-2024 10:25-0400Heart rate80 /bryannaColby Sky [address]03-27-2024 10:25-0400 Respiratory rate18 /bryannaColby Sky [address] [place], [place] 9916903-27-2024 10:14-0400Body ajuetdqkmti65.06 [degF]Colby Sky [address] [place], [place] 9916903-27-2024 10:14-0400 Diastolic blood sktgfurf54 mm[Hg]Colby Sky [address]03-27-2024 10:14-0400Heart rate63 /bryannaColby Sky [address] [place], [place] 4997103-27-2024 10:14-0400 Respiratory rate18 /bryannaColby Sky [address] [place], [place] 4997103-27-2024 10:14-3102TeB8% (BldA) [Mass fraction]98 %Colby Sky [address] [place], [place] 4997103-27-2024 10:14-0400 Systolic blood mjhhuvuv379 mm[Hg]Colby Sky [address] [place], [place] 4997112-12-2023 14:14-0500 Diastolic blood zqctvrki51 mm[Hg]Bari Alicea [address] [place], [place] 4997112-12-2023 14:14-0500Heart rate56 /Micky Alicea [address]12-12-2023 14:14-0500 Respiratory rate16 /Micky Alicea [address] [place], [place] 4997112-12-2023 14:14-3337ClQ3% (BldA) [Mass fraction]98 %Bari Alicea [address]12-12-2023 14:14-0500 Systolic blood eryeigcr375 mm[Hg]Bari Alicea [address]12-12-2023 13:15-0500 Diastolic blood jjifgtzl19 mm[Hg]Bari Alicea [address]12-12-2023 13:15-0500Heart rate63 /Micky Alicea [address]12-12-2023 13:15-0500Mean blood mm[Hg]Bari Alicea [address]12-12-2023 13:15-0500 Respiratory rate16 /Micky Alicea [address]12-12-2023 13:15-5105AfK6% (BldA) [Mass fraction]98 %Bari Alicea [address] [place], [place] 4997112-12-2023 13:15-0500 Systolic blood wunkwslb752 mm[Hg]Bari Alicea [address] [place], [place] 4997112-12-2023 12:55-0500Body .7 [degF]Bari Alicea [address]12-12-2023 12:55-0500 Diastolic blood mm[Hg]Bari Alicea [address]12-12-2023 12:55-0500Heart rate72 /minBari Alicea [facility]12-12-2023 12:55-0500 Respiratory rate18 /minBari Alicea [facility]12-12-2023 12:55-0249JlS5% (BldA) [Mass fraction]99 %Bari Alicea [facility]12-12-2023 12:55-0500 Systolic blood vdxolinh249 mm[Hg]Bari Alicea [facility]09-17-2023 11:21-2778VsS2% (BldA) [Mass fraction]98 %Alvaro Alonso MD Work Phone: BON [employer] [facility] JEJJIG13-26-5344 10:45-0400Body ltkyjj102.6 cmAlvaro Alonso MD Work Phone: [phone] [employer] [facility] CENTERAccelerated Vision GroupZSYEUG10-22-3731 10:45-0400Body mass index (BMI) [Ratio]24.03 kg/i2RbohkAlvaro Alonso MD Work Phone: [phone] [employer]09-17-2023 10:45-0400Body vlpkexkthlm29.8 [degF]Alvaro Alonso MD Work Phone: [phone] SECGiveSurance [facility] CENTERAccelerated Vision GroupRRGZOL13-00-3104 10:45-0400Body vyrxxc41.5 kgAlvaro Alonso MD Work Phone: [phone] SECLinear [employer]09-17-2023 10:45-0400Diastolic blood tfeonynq44 mm[Hg]Alvaro Alonso MD Work Phone: [phone] [employer]09-17-2023 10:45-0400Heart rate74 /Catarino Alonso MD Work Phone: [phone] SECLinear [employer] Energy09-17-2023 10:45-0400 Respiratory rate20 /Catarino Alonso MD Work Phone: [phone] SECGiveSurance [facility] CENTERAccelerated Vision GroupSDQPKP14-22-6753 10:45-0400Systolic blood epzdcnir139 mm[Hg]Alvaro Alonso MD Work Phone: [facility]08-21-2023 13:32-0400Body mymlst383.56 cmJaniya Raygoza Work Phone: [phone]-[facility]jW[facility] 120 Work Phone: 1(102) 255-935708-21-2023 13:32-0400Body mass index (BMI) [Ratio] 25.09 kg/m2Janiya Raygoza Work Phone: [phone]) [phone]-[place] [address] Work Phone: 1(899) [phone] 13:32-0400Body surface area Derived from formula1.71 m2Janiya Raygoza Work Phone: [phone]-MxtrAnthony [place] [address] Work Phone: 1(898) 194-411208-21-2023 13:32-0400Body yhlgea70.3 kgJaniya Raygoza Work Phone: 1([phone]-PwoyAnthony [place] [address] Work Phone: 1(124) [phone] 06:00-0500Body ltacneoqump13.5 [degF]MD Janiya Raygoza Work Phone: [facility]02-16-2023 06:00-0500 Diastolic blood kpoghwti71 mm[Hg]MD Janiya Raygoza Work Phone: [facility]02-16-2023 06:00-0500 Heart rate60 /minMD Janiya Raygoza Work Phone: [facility]02-16-2023 06:00-0500 Respiratory rate18 /minMD Janiya Raygoza Work Phone: [phone]02-16-2023 06:00-0500 SaO2% (BldA) [Mass fraction]96 %MD Janiya Raygoza Work Phone: [facility]02-16-2023 06:00-0500 Systolic blood eypyaldz359 mm[Hg]MD Janiay Raygoza Work Phone: [facility]02-14-2023 14:24-0500 Body qwmpau181.56 cmMD Janiya Raygoza Work Phone: [facility]02-14-2023 04:46-0500 Body .86 kgMD Janiya Raygoza Work Phone: [facility]02-14-2023 03:27-0500 Body yaagmvedhfn26.6 [degF]Brai Alicea [address] [place], [place] 4997102-14-2023 03:27-0500 Diastolic blood hqzenvce94 mm[Hg]Bari Alicea [address] [place], [place] 4997102-14-2023 03:27-0500Heart rate67 /minJocassie Alicea [facility]02-14-2023 03:27-0500Mean blood mm[Hg]Bari Alicea [address] [place], [place] 4997102-14-2023 03:27-0500 Respiratory rate18 /minJocassie Alicea [facility]02-14-2023 03:27-3480UyO7% (BldA) [Mass fraction]94 %Bari Alicea [facility]02-14-2023 03:27-0500 Systolic blood aboddcdi424 mm[Hg]Bari Alicea [facility]02-14-2023 02:15-0500Heart rate70 /minJocassie Alicea [address] [place], [place] 4997102-14-2023 02:15-0500 Respiratory rate19 /minJocassie Alicea [facility]02-14-2023 02:15-8905XoB0% (BldA) [Mass fraction]95 %Bari Alicea [address] [place], [place] 4997102-14-2023 01:10-0500Heart rate75 /Micky Alicea [address] [place], [place] 4997102-14-2023 01:10-0500 Respiratory rate27 /minBari Alicea [address] [place], [place] 4997102-14-2023 01:10-1156BwJ7% (BldA) [Mass fraction]96 %Bari Alicea [address]02-14-2023 00:16-0500 Hourly RoundingBari Alicea [address]02-13-2023 23:15-0500 Diastolic blood istyzphd46 mm[Hg]Bari Alicea [address]02-13-2023 23:15-0500 Hourly RoundingBari Alicea [address] [place], [place] 4997102-13-2023 23:15-0500Mean blood ilxmgpvn06 mm[Hg]Bari Alicea [address]02-13-2023 23:15-0500 Systolic blood sayicfyq476 mm[Hg]Bari Alicea [address]02-13-2023 22:15-0500 Hourly RoundingBari Alicea [address] [place], [place] 4997102-13-2023 21:44-0500 Diastolic blood cxxcgenk70 mm[Hg]Bari Alicea [address] [place], [place] 4997102-13-2023 21:44-0500Mean blood mm[Hg]Bari Alicea [address] [place], [place] 4997102-13-2023 21:44-0500 Systolic blood mm[Hg]Bari Alicea [address] [place], [place] 4997102-13-2023 15:48-0500Body gcjcveccftv39.6 [degF]Bari Alicea [facility]02-13-2023 15:48-0500Heart kfow720 /Micky Alicea [facility]02-13-2023 15:48-0500 Respiratory rate19 /Micky Alicea [facility]02-09-2023 14:50-0500Body nrjiaf500.56 cmJaniya Raygoza Work Phone: 1(964) [phone]-[place]nq[place] [address] Work Phone: 1(840) 319-416602-09-2023 14:50-0500Body mass index (BMI) [Ratio] 25.06 kg/m2Janiya Raygoza Work Phone: 1(860) [phone]-XmgoWaverly Health Center 120 Work Phone: 1(609) 351-972202-09-2023 14:50-0500Body surface area Derived from formula1.71 m2Janiya Raygoza Work Phone: 1(438) [phone]-[place]uiy[place] [address] Work Phone: 1(559) [phone] 14:50-0500Body solnzg66.23 kgJaniya Raygoza Work Phone: 1(141) [phone]-ZuntWaverly Health Center 120 Work Phone: 1(876) 850-358702-09-2023 14:50-0500Diastolic blood hcyrjtdy96 mm[Hg] Janiya Raygoza Work Phone: 1(887) [phone]-PellWaverly Health Center 120 Work Phone: 1(652) [phone] 14:50-0500Heart rate92 /Zaheer Raygoza Work Phone: 1(617) [phone]-ZyxyWaverly Health Center 120 Work Phone: 1(571) 712-171902-09-2023 14:50-0500Respiratory rate95 /Zaheer Raygoza Work Phone: 1(375) [phone]-MrmhWaverly Health Center 120 Work Phone: 1(531) [phone] 14:50-0500Systolic blood ewptvbtz443 mm[Hg] Janiya Raygoza Work Phone: 1(362) [phone]-OkrwWaverly Health Center 120 Work Phone: 1(751) 546-564202-04-2023 16:14-4386AgH4% (BldA) [Mass fraction]97 % Dakota Robb MD Work Phone: BON [facility] CENTERGiveSurance [facility] KOPKCB75-06-6294 15:55-0500Body sasqsrcempn73.9 [degF]Dakota Robb MD Work Phone: BON [facility]ENTERGiveSurance [facility] MEDICAL CENTERTQGVFR07-48-9433 15:55-0500Diastolic blood ujkbslqu75 mm[Hg]Dakota Robb MD Work Phone: BON [facility]02-04-2023 15:55-0500Heart rate80 /minDakota Robb MD Work Phone: BON [facility] CENTERGiveSurance [facility] CDYUDU10-70-7400 15:55-0500 Respiratory rate20 /minDakota Robb MD Work Phone: BON [facility] ASCHBF28-43-9613 15:55-0500Systolic blood snahoijm081 mm[Hg]Dakota Robb MD Work Phone: BON [facility]02-04-2023 15:54-0500Body lovlbo250.6 cmDakota Robb MD Work Phone: BON [facility]02-04-2023 15:54-0500Body mass index (BMI) [Ratio]25.35 kg/q9DggksgDakota Robb MD Work Phone: BON [facility] CENTERGiveSurance [facility] VCKYUA47-62-8114 15:54-0500Body gohtwk60 kgDakota Robb MD Work Phone: BON [facility]12-07-2022 13:15-0500Diastolic blood tkjdykql31 mm[Hg]Et3 BmyojsooTxdmvBjtmmb52-08-9508 13:15-0500Heart rate76 /minEt3 SkkayvohDogxnDjvdut23-67-1811 13:15-0500Respiratory rate16 /minEt3 LdazkulyWppixHgzdbe48-23-4111 13:15-3383WhR6% (BldA) [Mass fraction]98 %Et3 IzwtllbcLhekcLbfkee44-44-5533 13:15-0500Systolic blood ypddundv894 mm[Hg]Et3 ResourceMetroHealth Encounters Encounter DateEncounter TypeCare ProviderFacilityStart: 09-27-2025 End: 06-04-6442srbgvqrtjkImebyvp Eboni Souza MDFacility:PM [facility] Start: 09-08-2025 End: 49-51-9346Qgrhcflri encounterJaniya Raygoza MD Work Phone: [facility] MedicineStart: 09-07-2025 End: 81-27-6958Gtafkfbdq Result EncounterGeneric External Data ProviderNOMS External Department UnsolicitedStart: 09-07-2025 End: 01-37-3472Ydbmkitwq Result EncounterGeneric External Data ProviderNOMS External Department UnsolicitedStart: 08-20-2025 End: 70-19-8818Lsphkt outpatient visit 15 minutesAshconnie Felicityfatoumata [employer]ER Work Phone: 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)Start: 08-20-2025 End: 56-78-9617iniyhaixnpLINLTFUX SWINEHARTNot AvailableStart: 08-20-2025 End: 01-37-5124Cjiwgq flowsheetPeacehealthroel Sosahart BARREL RAISER Work Phone: [facility] MedicineStart: 08-20-2025 End: 36-07-3751Rtdnbv flowsheetMulticare Health Felicityhart BARREL RA[employer]ER Work Phone: [facility] MedicineStart: 08-10-2025 End: 67-61-4075auykufwqclXtjetrp Bedell COMPLIANCE REPRESENTATIVE DEALER Work Phone: NO[facility] POPULATION HEALTHStart: 05-18-2025 End: 62-11-9491Blnsckgay encounterJaniya Raygoza MD Work Phone: noms FNR FMStart: 05-14-2025 End: 98-51-2805Ngbshr outpatient visit 25 minutesAnaya Morton [employer] Work Phone: noms FNR FMComment on above:Palpitations (Primary Dx); Neck pain; Acute bilateral back pain, unspecified back locationStart: 05-14-2025 End: 67-01-7179xguohrfahvQUAIXJ MAJORSNot AvailableStart: 05-14-2025 End: 67-33-7757Omhksz flowsNaval Hospital Jacksonville BARREL RAISER Work Phone: noms FNR FMStart: 05-14-2025 End: 86-23-6421Zkiqoq [facility] BARREL [employer]ER Work Phone: noms FNR FMStart: 05-11-2025 End: 20-85-0588mrymitmmpeTkwgjne Bedell COMPLIANCE REPRESENTATIVE DEALER Work Phone: NONN POPULATION HEALTHStart: 05-08-2025 End: 91-35-0456Jvajcfizp department patient visitSumma Health Start: 05-05-2025 End: 31-96-1400Xbwznmpoi encounterJaniya Raygoza MD Work Phone: noms FNR FMStart: 04-26-2025 End: 54-97-9609kjdddicvjdKLEE F [facility] Centerwaleska Berthoud HospitalStart: 04-26-2025 End: 97-19-5961Ofxszykwen hospital visit by physicianM [facility] Non-Invasive CardiologyComment on above:PalpitationsStart: 04-21-2025 End: 94-17-4320obnfaasfjoGXGB [facility] HospitalStart: 04-21-2025 End: 93-93-1350Wxyvkjjlfy hospital visit by physicianMz Ekg ScheduleMWHZ EKG Comment on above:PalpitationsStart: 04-15-2025 End: 64-95-1386Yczvfl outpatient visit 25 minutesJaniya Raygoza MD Work Phone: NOUE FNR FMComment on above:Hyperglycemia (Primary Dx); Acute bronchitis, unspecified organism; PalpitationsStart: 04-15-2025 End: 28-47-1531cnhhzwzospUSJQ F BOWERNot AvailableStart: 04-13-2025 End: 99-13-4336Buflapwrq department patient visitKiet Kelley MD Work Phone: [facility] Emergency DepartmentComment on above: Moderate persistent asthmatic bronchitis with acute exacerbation (Primary Dx) Start: 02-23-2025 End: 42-82-6501yccskbswlrSAVDSGY A [facility] Institutetart: 02-23-2025 End: 85-98-6326Kzdzplplto hospital visit by physicianJaniya Raygoza MD Work Phone: mWHZ LaboratoryStart: 02-23-2025 End: 04-61-1584Zvtonompt Result EncounterJaniya Raygoza MD Work Phone: noms External Department UnsolicitedStart: 02-23-2025 End: 81-66-5013Vejqqkopw Result EncounterJaniya Raygoza MD Work Phone: noms External Department UnsolicitedStart: 02-23-2025 End: 87-97-2485Kvyvdjhpk encounterJaniya Raygoza MD Work Phone: noms FNR FMStart: 12-03-2024 End: 47-29-5973Pqqpemi encounter procedureLauryn MCLEOD Work Phone: [facility] Work Phone: Start: 12-03-2024 End: 96-06-5535Wmwijfle preventive med est patient 18-39 yrsLauryn MCLEOD Work Phone: noms BCP OBComment on above:Well woman exam with routine gynecological examStart: 12-03-2024 End: 80-67-0945sfcajshtkbAVY RAMEYNot AvailableStart: 12-03-2024 End: 41-63-7237Gijufp flowsheetLauryn MCLEOD Work Phone: noms BCP OBStart: 12-03-2024 End: 82-17-2127Jqebhf flowsheetAmy Ade MCLEOD Work Phone: noms BCP OBStart: 12-03-2024 End: 78-64-0712Dihostyig Result EncounterGeneric External Data ProviderNOMS External Department UnsolicitedStart: 11-07-2024 End: 85-67-5583Fazldl flowsheetChristy A Schultz [employer] Work Phone: noms FNR FMStart: 11-07-2024 End: 15-89-5473Lrmpfg flowsheetChristy A Schultz [employer]

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
== END 2025-10-14 14:37 | disposition home or self-care (01) ==
LOC: PM 14:37
PROVIDERS: PCP Family Medicine; Visit Provider Nurse Practitioner
DX: M47.816 Spondylosis without myelopathy or radiculopathy, lumbar region (principal); M48.062 Spinal stenosis, lumbar region with neurogenic claudication; M51.26 Other intervertebral disc displacement, lumbar region
CPT/HCPCS: G0463